=== PATIENT | female | born 1945 | race Caucasian/White ===

== ENCOUNTER 2024-11-25 08:16 | Outpatient (OUT) | payer MEDICARE, SELFPAY ==
--- NOTE | 2024-11-25 08:19 | CA_ITS ---
Patient Name: EPI MUSTAFA MR#: [id number] : 1945 Exam Date: 11/25/2024 Ordering Doctor: DR. KIMMY BUSH M.D. ECHOCARDIOGRAM REPORT PROCEDURE: CA ECHO DOPPLER COMPLETE INDICATIONS: Chest pain, YEBOAH COMPARISON: None. DESCRIPTION: COMPLETE ECHOCARDIOGRAM Real-time transthoracic echocardiography with 2D, M-mode, spectral and color flow Doppler performed. QUALITY: Technical quality was good. LEFT VENTRICLE: Normal chamber size. Mild concentric left ventricular hypertrophy. Global left ventricular systolic function is normal. LV EF: Visual estimation of left ventricular ejection fraction is 65%. DIASTOLIC: Diastolic function is indeterminate. ATRIAL SEPTUM: LEFT ATRIUM: Mild dilatation. RIGHT ATRIUM: Mild dilatation. RIGHT VENTRICLE: Normal chamber size. Normal right ventricular systolic function. TRICUSPID VALVE: Normal mobility and thickness. No stenosis with mild regurgitation. No evidence of pulmonary hypertension. RVSP 30 mmHg MITRAL VALVE: Normal mobility and thickness. No evidence of mitral valve stenosis. There is no mitral annular calcification. Mild mitral regurgitation. AORTIC VALVE: Normal trileaflet appearance. Mildly calcified aortic valve. Calcified nodule of Arantius is seen in the left coronary cusp. Normal leaflet mobility. No evidence of aortic valve stenosis. Trivial aortic regurgitation. AORTIC ROOT: Normal diameter and appearance. PULMONIC VALVE: Normal thickness and mobility. No stenosis. No regurgitation. PERICARDIUM: Trivial pericardial effusion. IVC: Collapses with inspirations. Normal size. PLEURA: CONCLUSION: 1. Mild concentric left ventricular hypertrophy with normal systolic function. LVEF is 65%. 2. Cordelia right ventricular size and systolic function. 3. Mild biatrial dilatation. 4. Mild mitral and tricuspid regurgitation. 5. Normal right sided pressures. Adult Echocardiography Procedure Report Left Ventricle LVEDD (3.7 - 5.6 cm): 4.48 cm LVESD (2.2 - 4.0 cm): 3.04 cm LVIVS thickness (0.6 - 1.2 cm): 1.09 cm LVPW thickness (0.5 - 1.0 cm): 1.08 cm e': 0.09 m/s E - e': 9.24 LVOT Max Gradient: 4.53 mm[Hg] LVOT Area (cm2): 1.06 m/s Peak Velocity (LVOT): 1.06 m/s Mean Velocity (LVOT): 0.69 m/s LVOT Diameter 1.97 cm Left Ventricular Ejection Fraction: 65 % Left Atrium LA Volume Index (2D A2C): 35.04 ml/m2 Left Atrium Systolic Dimension: 3.90 cm Mitral Valve MV E to A Ratio: 0.98 Mitral Valve A-Wave Peak Velocity: 0.88 m/s Mitral Valve E-Wave Peak Velocity: 0.86 m/s Right Ventricle RV Internal Diastolic Dimension: 3.15 cm Aorta AO Root Diam: 2.90 cm Ascending Ao Diam: 2.88 cm Aortic Valve AoV Area (Peak Harman): 1.77 cm2, 1.77 cm2 AoV Area (VTI): 1.90 cm2, 1.90 cm2 Peak Velocity(Antegrade Flow): 1.83 m/s Peak Gradient(Antegrade Flow): 13.46 mm[Hg] Mean Velocity(Antegrade Flow): 1.23 m/s Mean Gradient(Antegrade Flow): 6.92 mm[Hg] Velocity Time Integral: 48.91 cm Tricuspid Valve Peak Velocity (Regurgitant Flow): 2.26 m/s, 2.42 m/s, 2.61 m/s Pulmonic Valve Mean Gradient: 2.77 mm[Hg], 2.83 mm[Hg] Mean Velocity: 0.78 m/s, 0.79 m/s Peak Velocity: 1.14 m/s Peak Gradient: 5.02 mm[Hg], 5.31 mm[Hg] Right Atrium Right Atrium Systolic Pressure: 46.92 ml, 46.92 ml Dictated by: Pepe Chavez M.D. on 11/29/2024 at 13:47 Approved by: Pepe Chavez M.D. on 11/29/2024 at 13:57
== END 2024-11-25 08:17 | disposition home or self-care (01) ==
LOC: CARD 08:17
PROVIDERS: PCP Family Medicine; Visit Provider Internal Medicine Cardiovascular Disease
DX: R07.89 Other chest pain (principal); R06.09 Other forms of dyspnea; I08.1 Rheumatic disorders of both mitral and tricuspid valves
CPT/HCPCS: 93306; 93356

== ENCOUNTER 2024-11-25 09:04 | Outpatient (RCR) | payer MEDICARE, SELFPAY ==
[2024-11-25 14:29] LABS: Basophils Percent Auto 0.3 % (0.2-2.0); Eosinophils Absolute Auto 0.3 10^3/uL (0.0-0.7); Eosinophils Percent Auto 5.1 % (0.9-7.0); Hematocrit 36.1 % (36.0-48.0); Hemoglobin 11.3 g/dL (12.0-16.0); Immature Granulocytes Abs Auto 0.02 10^3/uL (0.00-0.03); Immature Granulocytes Pct Auto 0.3 % (0.0-0.5); Lymphocytes Absolute Auto 2.2 10^3/uL (1.2-3.8); Lymphocytes Percent Auto 36.6 % (20.5-60.0); Mean Corpuscular HGB Conc 31.3 g/dL (29.9-35.2); Mean Corpuscular Hemoglobin 31.2 pg (26.7-34.0); Mean Corpuscular Volume 99.7 fL (81.0-99.0); Mean Platelet Volume 8.8 fL (9.5-13.5); Monocytes Absolute Auto 0.5 10^3/uL (0.3-0.8); Monocytes Percent Auto 8.1 % (1.7-12.0); Neutrophils Absolute Auto 2.9 10^3/uL (1.4-6.5); Neutrophils Percent Auto 49.6 % (43.0-75.0); Platelet Count 251 10^3/uL (150-450); Red Blood Count 3.62 10^6/uL (4.20-5.40); Red Cell Distribution Width 13.1 % (11.0-15.0); White Blood Count 5.9 10^3/uL (4.0-11.0)
[2024-11-25 14:42] LABS: Alanine Aminotransferase 24 U/L (14-59); Albumin Globulin Ratio 1.1; Albumin Level 3.9 g/dL (3.4-5.0); Alkaline Phosphatase 104 U/L (46-116); Anion Gap 10.2; Aspartate Amino Transferase 16 U/L (15-37); BUN Creatinine Ratio 13.8; Bilirubin Total 0.4 mg/dL (0.2-1.0); Calcium 9.4 mg/dL (8.5-10.1); Chloride 103 mmol/L (98-107); Estimated GFR (African America 45 (>=60 mL/min/1.73m^2); Estimated GFR (Non-African Ame 37 (>=60 mL/min/1.73m^2); Globulin 3.6 g/dL; Glucose 124 mg/dL (74-106); Potassium 5.2 mmol/L (3.5-5.1); Sodium 140 mmol/L (136-145); Total Protein 7.5 g/dL (6.4-8.2)
== END 2024-11-26 08:51 | disposition home or self-care (01) ==
LOC: HEMC 09:04
PROVIDERS: PCP Family Medicine; Visit Provider Internal Medicine Hematology & Oncology
DX: R07.89 Other chest pain (principal); R06.09 Other forms of dyspnea; R91.1 Solitary pulmonary nodule; Z90.13 Acquired absence of bilateral breasts and nipples; Z85.3 Personal history of malignant neoplasm of breast; R06.02 Shortness of breath
CPT/HCPCS: 36415; 80053; 85025; 86300; 93306; 93356; G0463

== ENCOUNTER 2025-01-06 07:34 | Outpatient (RCR) | payer MEDICARE, SELFPAY ==
[2025-01-06 10:49] LABS: Basophils Percent Auto 0.4 % (0.2-2.0); Eosinophils Absolute Auto 0.2 10^3/uL (0.0-0.7); Eosinophils Percent Auto 2.4 % (0.9-7.0); Hematocrit 32.2 % (36.0-48.0); Hemoglobin 10.6 g/dL (12.0-16.0); Immature Granulocytes Abs Auto 0.04 10^3/uL (0.00-0.03); Immature Granulocytes Pct Auto 0.5 % (0.0-0.5); Lymphocytes Absolute Auto 2.5 10^3/uL (1.2-3.8); Lymphocytes Percent Auto 29.3 % (20.5-60.0); Mean Corpuscular HGB Conc 32.9 g/dL (29.9-35.2); Mean Corpuscular Hemoglobin 32.3 pg (26.7-34.0); Mean Corpuscular Volume 98.2 fL (81.0-99.0); Monocytes Absolute Auto 0.8 10^3/uL (0.3-0.8); Neutrophils Absolute Auto 4.9 10^3/uL (1.4-6.5); Neutrophils Percent Auto 58.4 % (43.0-75.0); Platelet Count 250 10^3/uL (150-450); Red Blood Count 3.28 10^6/uL (4.20-5.40); Red Cell Distribution Width 13.3 % (11.0-15.0); White Blood Count 8.4 10^3/uL (4.0-11.0)
[2025-01-06 11:12] LABS: Alanine Aminotransferase 16 U/L (14-59); Albumin Level 3.5 g/dL (3.4-5.0); Alkaline Phosphatase 91 U/L (46-116); Anion Gap 8.9; Aspartate Amino Transferase 13 U/L (15-37); BUN Creatinine Ratio 14.8; Bilirubin Total 0.4 mg/dL (0.2-1.0); Carbon Dioxide 30.9 mmol/L (21.0-32.0); Chloride 101 mmol/L (98-107); Estimated GFR (African America 41 (>=60 mL/min/1.73m^2); Estimated GFR (Non-African Ame 34 (>=60 mL/min/1.73m^2); Globulin 3.4 g/dL; Glucose 90 mg/dL (74-106); Potassium 4.8 mmol/L (3.5-5.1); Sodium 136 mmol/L (136-145); Total Protein 6.9 g/dL (6.4-8.2)
== END 2025-01-07 08:29 | disposition home or self-care (01) ==
LOC: HEMC 07:34
PROVIDERS: PCP Family Medicine; Visit Provider Internal Medicine Hematology & Oncology
DX: R91.1 Solitary pulmonary nodule (principal); Z85.3 Personal history of malignant neoplasm of breast; Z90.13 Acquired absence of bilateral breasts and nipples; R07.89 Other chest pain; Z80.0 Family history of malignant neoplasm of digestive organs; Z80.8 Family history of malignant neoplasm of other organs or systems; R06.02 Shortness of breath
CPT/HCPCS: 36415; 80053; 85025; 86300; 99211; G0463

== ENCOUNTER 2025-02-03 07:39 | Outpatient (RCR) | payer MEDICARE, SELFPAY ==
[2025-02-03 10:42] LABS: Erythrocyte Sedimentation Rate 7 mm/hr (<=30)
[2025-02-03 11:36] LABS: Percent Iron Saturation 34.6 %
[2025-02-03 11:42] LABS: C Reactive Protein <0.50 mg/dL (<=0.50)
[2025-02-03 15:07] LABS: Hematocrit 30.6 % (36.0-48.0); Hemoglobin 9.9 g/dL (12.0-16.0); Mean Corpuscular HGB Conc 32.4 g/dL (29.9-35.2); Mean Corpuscular Hemoglobin 32.5 pg (26.7-34.0); Mean Corpuscular Volume 100.3 fL (81.0-99.0); Mean Platelet Volume 9.4 fL (9.5-13.5); Platelet Count 198 10^3/uL (150-450); Red Blood Count 3.05 10^6/uL (4.20-5.40); Red Cell Distribution Width 15.1 % (11.0-15.0); White Blood Count 2.3 10^3/uL (4.0-11.0)
[2025-02-03 15:42] LABS: Eosinophils Absolute Manual 0.06 10^3/uL (0.00-0.70); Lymphocytes Absolute Manual 1.33 10^3/uL (1.20-3.80); Monocytes Absolute Manual 0.29 10^3/uL (0.30-0.80); Segmented Neut Absolute Manual 0.57 10^3/uL (1.4-6.5)
[2025-02-04 04:07] LABS: Vitamin B12 334 pg/mL (232-1245)
== END 2025-02-04 07:57 | disposition home or self-care (01) ==
LOC: HEMC 07:39
PROVIDERS: PCP Family Medicine; Visit Provider Internal Medicine Hematology & Oncology
DX: R91.1 Solitary pulmonary nodule (principal); I10 Essential (primary) hypertension; Z85.3 Personal history of malignant neoplasm of breast; C50.912 Malignant neoplasm of unspecified site of left female breast; C50.911 Malignant neoplasm of unspecified site of right female breast; C78.01 Secondary malignant neoplasm of right lung
CPT/HCPCS: 36415; 80048; 82607; 82728; 82746; 83540; 83550; 85007; 85027; 85652; 86140; G0463

== ENCOUNTER 2025-02-03 11:33 | Outpatient (RCR) | payer MEDICARE, SELFPAY ==
[2025-02-03 14:21] LABS: Anion Gap 13.5; BUN Creatinine Ratio 12.3; Calcium 8.9 mg/dL (8.5-10.1); Carbon Dioxide 28.1 mmol/L (21.0-32.0); Chloride 105 mmol/L (98-107); Estimated GFR (African America 37 (>=60 mL/min/1.73m^2); Estimated GFR (Non-African Ame 30 (>=60 mL/min/1.73m^2); Glucose 113 mg/dL (74-106); Potassium 4.6 mmol/L (3.5-5.1); Sodium 142 mmol/L (136-145)
== END 2025-02-04 07:57 | disposition home or self-care (01) ==
LOC: INF 11:33
PROVIDERS: PCP Family Medicine; Visit Provider Internal Medicine Cardiovascular Disease
DX: I10 Essential (primary) hypertension (principal)
CPT/HCPCS: 36415; 80048

== ENCOUNTER 2025-02-18 08:45 | Outpatient (OUT) | payer MEDICARE, SELFPAY ==
[2025-02-18 08:58] LABS: Hemoglobin 9.7 g/dL (12.0-16.0)
--- NOTE | 2025-02-18 09:39 | RT_ITS ---
The 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 Findings were considered accurate and reproducible, with exception of DLCO which did not meet ATS standards. Both pre- and post-bronchodilator values utilized for spirometry. Spirometry (based on pre-bronchodilator values): -FEV1/FVC: Normal @ 83% -FEV1: Normal @ 93% -FVC: Normal @ 82% -There is no significant bronchodilator response. Lung volumes by plethysmography (based on pre-bronchodilator values): -RV: Increased @ 127% -TLC: Normal @ 117% Diffusion capacity: -DLCO: Normal @ 82% when corrected for Hb 9.7g/dL Impressions: -Essentially normal PFT. Mild anemia is present based on Hb 9.7g/dL. Clinical correlation required. Electronically Signed On 02-18-2025 14:03:14 EDT by Tony Roman
[2025-02-18] MEDS: ALBUTEROL SULFATE 2.5 MG/3 ML VIAL NEB IH (09:51)
== END 2025-02-18 08:46 | disposition home or self-care (01) ==
LOC: CARD 08:46
PROVIDERS: PCP Family Medicine; Visit Provider Internal Medicine Hematology & Oncology
DX: R91.1 Solitary pulmonary nodule (principal); Z85.3 Personal history of malignant neoplasm of breast; C50.912 Malignant neoplasm of unspecified site of left female breast; C50.911 Malignant neoplasm of unspecified site of right female breast; C78.01 Secondary malignant neoplasm of right lung
CPT/HCPCS: 36415; 85018; 94060; 94726; 94729

== ENCOUNTER 2025-03-03 10:36 | Outpatient (RCR) | payer MEDICARE, SELFPAY ==
[2025-03-07 00:07] LABS: D001-IgE D pteronyssinus <0.10 kU/L (Class 0); D002-IgE D farinae <0.10 kU/L (Class 0); E001-IgE Cat Dander <0.10 kU/L (Class 0); E005-IgE Dog Dander <0.10 kU/L (Class 0); E072-IgE Mouse Urine <0.10 kU/L (Class 0); G002-IgE Bermuda Grass <0.10 kU/L (Class 0); G006-IgE Timothy Grass <0.10 kU/L (Class 0); I006-IgE Cockroach, German <0.10 kU/L (Class 0); Immunoglobulin E, Total 26 IU/mL (6-495); M001-IgE Penicillium chrysogen <0.10 kU/L (Class 0); M002-IgE Cladosporium herbarum <0.10 kU/L (Class 0); M003-IgE Aspergillus fumigatus <0.10 kU/L (Class 0); M006-IgE Alternaria alternata <0.10 kU/L (Class 0); T001-IgE Maple/Box Elder <0.10 kU/L (Class 0); T003-IgE Common Silver Birch <0.10 kU/L (Class 0); T006-IgE Cedar, Mountain <0.10 kU/L (Class 0); T007-IgE Oak, White <0.10 kU/L (Class 0); T008-IgE Elm, American <0.10 kU/L (Class 0); T010-IgE Walnut <0.10 kU/L (Class 0); T011-IgE Maple Leaf Sycamore <0.10 kU/L (Class 0); T014-IgE Cottonwood <0.10 kU/L (Class 0); T015-IgE Ash, White <0.10 kU/L (Class 0); T022-IgE Pecan, Hickory <0.10 kU/L (Class 0); T070-IgE White Mulberry <0.10 kU/L (Class 0); W001-IgE Ragweed, Short <0.10 kU/L (Class 0); W011-IgE Thistle, Russian <0.10 kU/L (Class 0); W014-IgE Pigweed, Common <0.10 kU/L (Class 0); W018-IgE Sheep Sorrel <0.10 kU/L (Class 0)
== END 2025-03-11 23:59 | disposition home or self-care (01) ==
LOC: INF 10:36
PROVIDERS: PCP Family Medicine; Visit Provider Internal Medicine
DX: J45.40 Moderate persistent asthma, uncomplicated (principal)
CPT/HCPCS: 36415; 82785; 86003

== ENCOUNTER 2025-03-10 07:33 | Outpatient (RCR) | payer MEDICARE, SELFPAY ==
[2025-03-03 11:29] LABS: Hematocrit 26.3 % (36.0-48.0); Hemoglobin 8.5 g/dL (12.0-16.0); Mean Corpuscular HGB Conc 32.3 g/dL (29.9-35.2); Mean Corpuscular Hemoglobin 33.6 pg (26.7-34.0); Platelet Count 169 10^3/uL (150-450); Red Blood Count 2.53 10^6/uL (4.20-5.40); Red Cell Distribution Width 18.4 % (11.0-15.0); White Blood Count 2.4 10^3/uL (4.0-11.0)
[2025-03-03 11:43] LABS: Alanine Aminotransferase 18 U/L (14-59); Albumin Globulin Ratio 1.2; Albumin Level 3.7 g/dL (3.4-5.0); Alkaline Phosphatase 85 U/L (46-116); Anion Gap 13.4; Aspartate Amino Transferase 17 U/L (15-37); BUN Creatinine Ratio 12.3; Bilirubin Total 0.4 mg/dL (0.2-1.0); Calcium 9.1 mg/dL (8.5-10.1); Carbon Dioxide 28.2 mmol/L (21.0-32.0); Chloride 104 mmol/L (98-107); Estimated GFR (African America 39 (>=60 mL/min/1.73m^2); Estimated GFR (Non-African Ame 32 (>=60 mL/min/1.73m^2); Globulin 3.1 g/dL; Glucose 94 mg/dL (74-106); Potassium 4.6 mmol/L (3.5-5.1); Sodium 141 mmol/L (136-145); Total Protein 6.8 g/dL (6.4-8.2)
[2025-03-03 11:58] LABS: Basophils Abs Manual 0.07 10^3/uL (0.00-0.10); Eosinophils Absolute Manual 0.12 10^3/uL (0.00-0.70); Lymphocytes Absolute Manual 0.88 10^3/uL (1.20-3.80); Metamyelocytes Absolute Manual 0.04; Monocytes Absolute Manual 0.33 10^3/uL (0.30-0.80); Segmented Neut Absolute Manual 0.93 10^3/uL (1.4-6.5)
[2025-03-03 12:00] LABS: Anisocytosis 2+; Macrocytosis 2+
[2025-03-04 04:07] LABS: CA 15-3 54.8 U/mL (0.0-25.0)
[2025-03-04 07:07] LABS: CA 27.29 59.8 U/mL (0.0-38.6)
[2025-03-10 10:30] VITALS: PULSE 62; TEMP 36.6; O2SAT 95
[2025-03-10] MEDS: EPOETIN ALFA 20,000 UNIT/2 ML VIAL 40000 UNIT SUBQ (10:51)
[2025-03-10 10:55] LABS: Hematocrit 26.2 % (36.0-48.0); Hemoglobin 8.8 g/dL (12.0-16.0); Mean Corpuscular HGB Conc 33.6 g/dL (29.9-35.2); Mean Corpuscular Hemoglobin 35.2 pg (26.7-34.0); Mean Corpuscular Volume 104.8 fL (81.0-99.0); Mean Platelet Volume 8.7 fL (9.5-13.5); Platelet Count 206 10^3/uL (150-450); Red Cell Distribution Width 19.5 % (11.0-15.0); White Blood Count 2.3 10^3/uL (4.0-11.0)
[2025-03-10 11:15] LABS: Percent Iron Saturation 30.4 %
[2025-03-10 11:18] LABS: Alanine Aminotransferase 27 U/L (14-59); Albumin Globulin Ratio 1.1; Albumin Level 3.6 g/dL (3.4-5.0); Alkaline Phosphatase 87 U/L (46-116); Anion Gap 12.2; Aspartate Amino Transferase 16 U/L (15-37); BUN Creatinine Ratio 10.9; Bilirubin Total 0.4 mg/dL (0.2-1.0); Carbon Dioxide 28.5 mmol/L (21.0-32.0); Chloride 101 mmol/L (98-107); Estimated GFR (African America 30 (>=60 mL/min/1.73m^2); Estimated GFR (Non-African Ame 25 (>=60 mL/min/1.73m^2); Globulin 3.2 g/dL; Glucose 102 mg/dL (74-106); Potassium 4.7 mmol/L (3.5-5.1); Sodium 137 mmol/L (136-145); Total Protein 6.8 g/dL (6.4-8.2)
[2025-03-10 11:24] LABS: Lymphocytes Absolute Manual 0.82 10^3/uL (1.20-3.80); Segmented Neut Absolute Manual 1.19 10^3/uL (1.4-6.5)
[2025-03-10 11:25] LABS: Anisocytosis 2+; Basophils Abs Manual 0.06 10^3/uL (0.00-0.10); Eosinophils Absolute Manual 0.06 10^3/uL (0.00-0.70); Macrocytosis 3+; Monocytes Absolute Manual 0.11 10^3/uL (0.30-0.80)
== END 2025-03-11 23:59 | disposition home or self-care (01) ==
LOC: HEMC 07:33
PROVIDERS: PCP Family Medicine; Visit Provider Internal Medicine Hematology & Oncology
DX: R91.1 Solitary pulmonary nodule (principal); C78.01 Secondary malignant neoplasm of right lung; Z85.3 Personal history of malignant neoplasm of breast; D64.81 Anemia due to antineoplastic chemotherapy; Z90.13 Acquired absence of bilateral breasts and nipples; Z80.3 Family history of malignant neoplasm of breast; Z80.8 Family history of malignant neoplasm of other organs or systems; R07.89 Other chest pain; I25.10 Atherosclerotic heart disease of native coronary artery without angina pectoris; E78.5 Hyperlipidemia, unspecified; D63.1 Anemia in chronic kidney disease; N18.9 Chronic kidney disease, unspecified; I12.9 Hypertensive chronic kidney disease with stage 1 through stage 4 chronic kidney disease, or unspecified chronic kidney disease
CPT/HCPCS: 36415; 80053; 82728; 82785; 83540; 83550; 85007; 85027; 86003; 86300; 96372; G0463; J0885

== ENCOUNTER 2025-03-19 09:18 | Outpatient (OUT) | payer MEDICARE, SELFPAY ==
--- NOTE | 2025-03-19 09:21 | MR_ITS ---
The [address] [address] Patient Name: EPI MUSTAFA MRN: [id number] date: 1945 Sex: F Assigned Patient Location: MRI Current Patient Location: MRI Accession/Order Number: [id number] Exam Date: 03/19/2025 14:27 Report Date: 03/19/2025 14:31 At the request of: PEYTON MCMILLAN MD Procedure: MR head/brain wo/w con MRI of the brain with and without IV contrast. Reason for exam: Lung cancer. Evaluation for metastases. COMPARISON: None. TECHNIQUE: Multisequence, multiplanar imaging of the brain was performed before and after the use of IV contrast. FINDINGS: No evidence of restricted diffusion is an diffusion-weighted imaging. No evidence of blood products are seen on T2 Star imaging. Cortical atrophy with moderate chronic microvascular ischemic changes are noted. Posterior fossa appears unremarkable. Intraorbital contents appear grossly unremarkable. No significant paranasal sinus disease. An enhancing extra-axial lesion is seen along the falx in the region of the frontal lobes with what appears to be a dural tail noted measuring approximately 3.0 x 2.1 x 1.5 cm. No significant surrounding edema is noted. No additional abnormal enhancement is seen. MR/MR head/brain wo/w con IMPRESSION: Enhancing extra-axial mass is noted along the anterior falx measuring 3.0 x 2.1 x 1.5 cm with what appears to be a dural tail suspicious for a meningioma. No abnormal enhancement is seen within the brain parenchyma to suggest metastatic disease. Cortical atrophy with moderate chronic microvascular ischemic changes. Impression dictated by: Óscar May Jr., D.O. 03/19/2025 2:31 PM Dictation Location: [place] [address] Electronically authenticated by: [id number] Y Date: 03/19/2025 14:31
== END 2025-03-19 09:19 | disposition home or self-care (01) ==
LOC: MRI 09:18
PROVIDERS: PCP Family Medicine; Visit Provider Internal Medicine Hematology & Oncology
DX: R91.1 Solitary pulmonary nodule (principal); Z85.3 Personal history of malignant neoplasm of breast; C50.912 Malignant neoplasm of unspecified site of left female breast; C50.911 Malignant neoplasm of unspecified site of right female breast; C78.01 Secondary malignant neoplasm of right lung; D63.1 Anemia in chronic kidney disease; D64.81 Anemia due to antineoplastic chemotherapy
CPT/HCPCS: 70553; A9575

== ENCOUNTER 2025-03-28 15:50 | Observation (INO) | payer MEDICARE, SELFPAY ==
[2025-03-28] VITALS (14 sets, daily range): BP systolic 137–177; BP diastolic 67–76; PULSE 56–76; TEMP 36.4–36.6; O2SAT 90–96; BMI 32.7; BMI 32.6
--- OUTSIDE RECORDS SUMMARY | 2025-03-28 15:57 | XMS_ITS | CCD ---
Author Organization [facility] Care Team Providers Care Customer Support Professional Name Role Phone UNKNOWN, PROVIDER Admitting Unavailable UNKNOWN, PROVIDER Attending Unavailable LUCIA ESTEBAN Referring Unavailable LUCIA ESTEBAN Primary Care Unavailable Shea Reyes Primary Care Provider CJ FOX Attending Unavailable CJ FOX Admitting Unavailable MONCHO, DR NORBERTO Trammell Consulting Unavailable LORI, DR LUCIA Mckeon Primary Care Unavailable ROSANNA, CJ Consulting Unavailable LORI, DR LUCIA Mckeon Primary Care Unavailable CJ FOX Admitting Unavailable CJ FOX Attending Unavailable Kevyn, DR Jorgensen Consulting Unavailable CJ FOX Consulting Unavailable LORI, DR LUCIA Mckeon Primary Care Unavailable CRESCENCIO, DR BERNABE Mejia Attending Unavailable CRESCENCIO, DR BERNABE Mejia Admitting Unavailable CRESCENCIO, DR BERNABE Mejia Consulting Unavailable LORI, DR LUCIA Mckeon Primary Care Unavailable CRESCENCIO, DR BERNABE Mejia Attending Unavailable CRESCENCIO, DR BERNABE Mejia Admitting Unavailable CRESCENCIO, DR BERNABE Mejia Attending Unavailable CRESCENCIO, DR BERNABE Mejia Admitting Unavailable CRESCENCIO, DR BERNABE Mejia Consulting Unavailable LORI, DR LUCIA Mckeon Primary Care Unavailable CRESCENCIO, DR BERNABE Mejia Attending Unavailable CRESCENCIO, DR BERNABE Mejia Admitting Unavailable PRATHER, DR BERNABE Mejia Consulting Unavailable LORI, DR LUCIA Mckeon Primary Care Unavailable CRESCENCIO, DR BERNABE Mejia Admitting Unavailable CRESCENCIO, DR BERNABE Mejia Consulting Unavailable CRESCENCIO, DR BERNABE Mejia Attending Unavailable LORI, DR LUCIA Mckeon Primary Care Unavailable CRESCENCIO, DR BERNABE Mejia Admitting Unavailable CRESCENCIO, DR BERNABE Mejia Consulting Unavailable CRESCENCIO, DR BERNABE Mejia Attending Unavailable LORI, DR LUCIA Mckeon Primary Care Unavailable CRESCENCIO, DR BERNABE Mejia Admitting Unavailable LORI, DR LUCIA Mckeon Primary Care Unavailable CRESCENCIO, DR BERNABE Mejia Attending Unavailable LORI, DR LUCIA Mckeon Primary Care Unavailable CLOUGHERTY, GAUTHIER O Admitting Unavailabl DISHA Crawley Attending Unavailabl e MONCHO, DR NORBERTO Trammell Consulting Unavailable DISHA HARRIS Consulting Unavailabl katelynn ESTEBAN, DR LUCIA Mckeon Primary Care Unavailable CJ FOX Admitting Unavailable ROSANNA, CJ Attending Unavailable MONCHO, DR NORBERTO Trammell Consulting Unavailable CJ FOX Consulting Unavailable LORI, DR LUCIA Mckeon Primary Care Unavailable FIDE CHUA Attending Unavailable FIDE CHUA Admitting Unavailable MONCHO, DR NORBERTO Trammell Consulting Unavailable FIDE CHUA Consulting Unavailable Lucia Esteban MD Unavailable [phone] Lucia Esteban MD Primary Care Provider [phone] LORI, LUCIA A Referring Unavailable ESTEBAN, LUCIA A Primary Care Unavailable VICENTA FERNANDES Referring Unavailable ESTEBAN, LUCIA A Primary Care Unavailable ESTEBAN, LUCIA A Referring Unavailable ESTEBAN, LUCIA A Primary Care Unavailable ESTEBAN, LUCIA A Referring Unavailable ESTEBAN, LUCIA A Primary Care Unavailable ESTEBAN, LUCIA A Primary Care Unavailable MYERSDOMINIQUE Attending Unavailable MYERS, DOMINIQUE Maloney Attending Unavailable MYERSDOMINIQUE Referring Unavailable ESTEBAN, LUCIA A Primary Care Unavailable MYERS, DOMINIQUE Maloney Attending Unavailable MYERS, DOMINIQUE Maloney Referring Unavailable ESTEBAN, LUCIA A Primary Care Unavailable MYERS, DOMINIQUE Maloney Attending Unavailable MYERS, DOMINIQUE W Referring Unavailable ESTEBAN, LUCIA A Primary Care Unavailable ESTEBAN, LUCIA A Referring Unavailable ESTEBAN, LUCIA A Primary Care Unavailable KIMMY ROSADO Referring Unavailable ESTEBAN, LUCIA A. Primary Care Unavailable Lucia Esteban MD Primary Care Provider [phone] MARÍA THAPA Attending Unavailable MARÍA THAPA Referring Unavailable ESTEBAN, LUCIA A Primary Care Unavailable MARÍA THAPA Referring Unavailable ESTEBAN, LUCIA A Primary Care Unavailable Lucia Esteban MD Primary Care Provider BRANNON CARRANZA Attending Unavailable LAVINIA HERRING Attending Unavailable LAVINIA HERRING Attending Unavailable LAVINIA HERRING Referring Unavailable ESTEBAN, LUCIA A Referring Unavailable ESTEBAN, LUCIA A Primary Care Unavailable ESTEBAN, LUCIA A Referring Unavailable ESTEBAN, LUCIA A Primary Care Unavailable MARÍA THAPA Attending Unavailable ESTEBAN, LUCIA A Referring Unavailable ESTEBAN, LUCIA A Primary Care Unavailable MARÍA THAPA Attending Unavailable NATASHA VAZQUEZ Referring Unavailable ESTEBAN, LUCIA A Primary Care Unavailable SAID ISIDRA SIMMONS Admitting Unavailable SAID ISIDRA SIMMONS Attending Unavailable ESTEBAN, LUCIA A Primary Care Unavailable ESTEBAN, LUCIA A Referring Unavailable ESTEBAN, LUCIA A Primary Care Unavailable KIMMY ROSADO Attending Unavailable KIMMY ROSADO Attending Unavailable KIMMY ROSADO Attending Unavailable KIMMY ROSADO Admitting Unavailable Allergies Allergy Classification Reported Allergen(s) Allergy Type Date of Onset Reaction(s) Facility (3 sources) Levamisole Drug Allergy 9 [facility] Repository (1 source) Penicillin Drug Allergy 9 [facility] Repository (2 sources) pregabalin Drug Allergy 9 [facility] Repository (7 sources) Penicillins; Translations: [PENICILLINS] Drug allergy (disorder) 3 [facility] Repository (6 sources) Penicillins Drug Intolerance 8 Headache [facility] Work Phone: (11 sources) Pregabalin; Translations: [PREGABALIN] Allergy to substance 8 Dizziness, Headache, Other, Shortness of breath [facility] (20 sources) Promethazine; Translations: [PROMETHAZINE] Drug Allergy 8 Anxiety, Dizziness, Hallucinations, Itching, Other, Palpitations, Other (See Comments) [facility] (7 sources) Penicillins Propensity to adverse reactions to drug 8 Other (See Comments) [facility] (11 sources) pregabalin Drug Allergy 8 Other (See Comments) [facility] (4 sources) Penicillins Propensity to adverse reactions to drug 8 Other (See Comments) [facility] Medications Current Medications Medication Drug Class(es) Dates Sig (Normalized) Sig (Original) acetaminophen 325 mg oral tablet (17 sources) take 2 tablets by mouth every six hours as needed for pain acetaminophen (TYLENOL) 325 mg tablet Indications: pain Take 2 tablets (650 mg total) by mouth every 6 (six) hours as needed for pain Indications: pain. Active acetaminophen (T ylenol Extra Strength) 500 MG tablet every 6 (six) hours Active acetaminophen 500 mg / diphenhydrAMINE hydrochloride 25 mg oral tablet (17 sources) Histamine-1 Receptor Antagonist take 0.5 tablet by mouth once daily as needed for sleep diphenhydrAMINE-acetaminophen (TYLENOL PM) 25-500 mg tablet Take 0.5 tablets by mouth nightly as needed for sleep. Active albuterol 0.83 mg/ml inhalation solution (6 sources) beta2-Adrenergi c Agonist Star t: 04 0-20 25 take 3 mL by inhalation four times daily as needed for wheezing albuterol (PROVENTIL,VENTOLIN) 2.5 mg /3 mL (0.083 %) nebulizer solution Indications: Moderate persistent asthma without complication Inhale 3 mL (2.5 mg total) by nebulization 4 (four) times a day as needed for wheezing. 75 mL 12 02/19/2025 Active Start: 02-19-2025 take 2 puff(s) by in halation every six hours as needed for wheezing albuterol (PROVENTIL HFA;VENTOLIN HFA) 90 mcg/actuation inhaler Indications: Moderate persistent asthma without complication Inhale 2 puffs every 6 (six) hours as needed for wheezing. 18 g 11 02/19/2025 Active amitriptyline hydrochloride 10 mg oral tablet (15 sources) Tricyclic Antidepressant take 2 tablets by mouth once daily amitriptyline (ELAVIL) 10 mg tablet Indications: anxiety , insomnia Take 2 tablets (20 mg total) by mouth nightly Indications: anxious, difficulty sleeping. Active amitriptyline (E lavil) 10 MG tablet Active apple cider vinegar 500 mg oral tablet (3 sources) End: 12-11-2024 apple cider vinegar 500 mg tablet Take 450 mg by mouth daily. 12/11/2024 Discontinued (Therapy completed) ascorbic acid 60 mg / beta carotene 5000 unt / copper sulfate 40 mg / dl-alpha tocopheryl acetate 30 unt / sodium selenite 0.04 mg / zinc oxide 40 mg oral tablet (6 sources) Vitamin C Multiple Vitamin (Multivitamin Adult) tablet as directed Orally Active aspirin 81 mg chewable tablet (9 sources) Platelet Aggregation Inhibitor, Nonsteroidal Anti-inflammatory Drug aspirin 81 mg chewable tablet Chew 1 tablet (81 mg total) and swallow in the morning. prevention. Active atorvastatin 20 mg oral tablet (11 sources) HMG-CoA Reductase Inhibitor take 1 tablet by mouth once daily atorvastatin (LIPITOR) 20 mg tablet Indications: hyperlipidemia Take 1 tablet (20 mg total) by mouth nightly Indications: excessive fat in the blood. Active cholecalciferol 0.05 mg oral capsule (11 sources) Vitamin D take 1 capsule by mouth once daily in the morning cholecalciferol, vitamin D3, 2,000 units capsule Indications: vitamin D deficiency Take 1 capsule (2,000 Units total) by mouth in the morning. Indications: low vitamin D levels. Active take 1 capsule by mo uth in the morning cholecalciferol, vitamin D3, 2,000 units capsule Take 1 capsule (2,000 Units total) by mouth in the morning. Active DULoxetine 60 mg delayed release oral capsule (17 sources) Serotonin and Norepinephrine Reuptake Inhibitor take 1 capsule by mouth once daily DULoxetine (CYMBALTA) 60 mg capsule Indications: fibromyalgia Take 1 capsule (60 mg total) by mouth nightly Indications: disorder characterized by stiff, tender & painful muscles. Active erythromycin 0.005 mg/mg ophthalmic ointment (11 sources) Macrolide, Macrolide Antimicrobial Start: 020 erythromycin (ILOTYCIN) ophthalmic ointment 06/24/2020 Active fluticasone / salmeterol (2 sources) Corticosteroid, beta2-Adrenergic Agonist Start: 025 End: take 1 puff(s) by inhalation in the morning fluticasone propion-salmeteroL (ADVAIR DISKUS) 250-50 mcg/dose DISKUS Indications: Moderate persistent asthma without complication Inhale 1 puff in the morning and 1 puff before bedtime. 60 each 02/19/2025 02/20/2025 Discontinued 30 actuat fluticasone furoate 0.2 mg/actuat / vilanterol 0.025 mg/actuat dry powder inhaler (2 sources) Corticosteroid, beta2-Adrenergic Agonist Start: 025 take 1 puff(s) by inhalation in the morning fluticasone furoate-vilanteroL (BREO ELLIPTA) 200-25 mcg/dose blister with device Indications: Moderate persistent asthma without complication Inhale 1 puff in the morning. 60 each 02/20/2025 Active Start: 02-20-2025 take 1 puff(s) by in halation in the morning fluticasone furoate-vilanteroL (BREO ELLIPTA) 200-25 mcg/dose blister with device Indications: Moderate persistent asthma without complication Inhale 1 puff in the morning. 60 each 02/20/2025 Active gabapentin 300 mg oral capsule (20 sources) Anti-epileptic Agent Start: 08-23-2022 End: 12-11-2024 take 1 capsule by mouth three times daily gabapentin (NEURONTIN) 300 mg capsule Indications: Meningioma (CMS-HCC) Take 1 capsule (300 mg total) by mouth 3 (three) times a day. 90 capsule 3 08/23/2022 Active take 1 capsule by mo uth every twelve hours gabapentin (Neurontin) 300 MG capsule 1 capsule every 12 (twelve) hours Active hydroCHLOROthiazide 12.5 mg oral capsule (3 sources) Thiazide Diuretic Start: 01-29-2025 End: 01-29-2026 take 1 capsule by mouth in the morning hydroCHLOROthiazide (MICROZIDE) 12.5 mg capsule Take 1 capsule (12.5 mg) by mouth in the morning. 01/29/2025 01/29/2026 Active 24 hr isosorbide mononitrate 30 mg extended release oral tablet (9 sources) Nitrate Vasodilator End: 12-11-2024 isosorbide mononitrate ER (Imdur) 30 MG 24 hr tablet 1 (one) time each day at the same time Active letrozole 2.5 mg oral tablet (5 sources) Aromatase Inhibitor take 1 tablet by mouth once daily letrozole (FEMARA) 2.5 mg chemo tablet Take 1 tablet by mouth daily Possible early breast cancer Active lisinopril 10 mg oral tablet (17 sources) Angiotensin Converting Enzyme Inhibitor take 1 tablet by mouth in the morning lisinopril (PRINIVIL,ZESTRIL) 10 mg tablet Indications: hypertension Take 1 tablet (10 mg total) by mouth in the morning. Indications: high blood pressure. Active meclizine hydrochloride 25 mg oral tablet (11 sources) Antiemetic take 1 tablet by mouth three times daily as needed meclizine (ANTIVERT) 25 mg tablet Indications: motion sickness Take 1 tablet (25 mg total) by mouth 3 (three) times a day as needed Indications: motion sickness. Active meloxicam 15 mg oral tablet (3 sources) Nonsteroidal Anti-inflammator y Drug End: 12-11-2024 take 1 tablet by mouth in the morning meloxicam (MOBIC) 15 mg tablet Take 1 tablet (15 mg total) by mouth in the morning. 12/11/2024 Discontinued (Therapy completed) 24 hr metoprolol succinate 25 mg extended release oral tablet (17 sources) beta-Adrenergic Magdalena take 1 tablet by mouth every twenty-fou r hours in the morning metoprolol succinate XL (TOPROL-XL) 25 mg 24 hr tablet Indications: hypertension Take 1 tablet (25 mg total) by mouth in the morning. Indications: high blood pressure. Active montelukast 10 mg oral tablet (3 sources) Leukotriene Receptor Antagonist Start: 02-06-2025 take 1 tablet by mouth once daily montelukast (SINGULAIR) 10 mg tablet Take 1 tablet (10 mg total) by mouth nightly. 02/06/2025 Active multivit-minerals/[place] us fum (MULTI VITAMIN ORAL) (11 sources) multivit-mineral s/ferr ous fum (MULTI VITAMIN ORAL) Take by mouth. Active multivit-mineral s/ferrous fum (MULTI VITAMIN ORAL) Take by mouth. 0 Active omeprazole 20 mg delayed release oral capsule (18 sources) Proton Pump Inhibitor Start: 12-11-2024 End: 12-11-2024 take 1 capsule by mouth at bedtime omeprazole (PriLOSEC) 20 mg capsule TAKE 1 CAPSULE(20 MG) BY MOUTH IN THE MORNING AND AT BEDTIME 180 capsule 3 12/11/2024 Active palbociclib 125 mg oral capsule (2 sources) Kinase Inhibitor take 1 capsule by mouth once daily at mealtime palbociclib (Ibrance) 125 MG chemo capsule Take 125 mg by mouth Daily with meals. Swallow whole. Active Completed/Discontinued Medications Medication Drug Class(es) Dates Sig (Normalized) Sig (Original) 1 ml methylPREDNISolone acetate 40 mg/ml injection (8 sources) Corticosteroid Start: End: methylPREDNISolone acetate (DEPO-Medrol) injection 40 mg Start: 02-06-2025 End: 02-06-2025 40 mg, Intra-articular, Once PRN Procedure, Starting on Sun02/06/25 at 1320, For 1 dose Start: 08-27-2024 End: 08-27-2024 methylPREDNISolone acetate ( DEPO-Medrol) injection 40 mg Start: 08-27-2024 End: 08-27-2024 40 mg, Intra-articular, Once PRN Procedure, Starting on Sun08/27/24 at 1221, For 1 dose predniSONE 5 mg oral tablet (3 sources) End: 02-19-2025 take 1 tablet by mouth in the morning predniSONE (DELTASONE) 5 mg tablet Take 1 tablet (5 mg total) by mouth in the morning. 02/19/2025 Discontinued UNABLE TO FIND (7 sources) End: 12-22-2024 take 1000 mg by mouth in the morning UNABLE TO FIND Take 1,000 mg by mouth in the morning. Med Name: CBD oil . 12/22/2024 Discontinued (Therapy completed) take 1000 mg by mouth in the mor earnestine UNABLE TO FIND Take 1,000 mg by mouth in the morning. Med Name: CBD oil . Active take 1000 mg by mouth in the mor earnestine UNABLE TO FIND Take 1,000 mg by mouth in the morning. Med Name: CBD oil . 0 Active Problems Active Problems Problem Classification Problem Date Documented Date Episodic/Chronic Asthma (5 sources) Uncomplicated moderate persistent asthma; Translations: [Moderate persistent asthma, uncomplicated] Onset: 02-19-2025 02-20-2025 Chronic Cancer of breast (9 sources) History of malignant neoplasm of breast; Translations: [Personal history of malignant neoplasm of breast] Onset: 12-11-2024 12-11-2024 Episodic Chronic kidney disease (2 sources) Chronic kidney disease; Translations: [Chronic kidney disease, stage 3a] Onset: 03-03-2024 Coronary atherosclerosis and other heart disease (5 sources) 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; Translations: [Unstable angina] Onset: 11-13-2024 Chronic Disorders of lipid metabolism (3 sources) Mixed hyperlipidemia; Translations: [Mixed hyperlipidemia] Onset: 05-19-2024 Chronic Diverticulosis and diverticulitis (11 sources) Diverticulosis of large intestine; Translations: [Diverticulosis of large intestine without perforation or abscess without bleeding] Onset: 08-02-2020 08-02-2020 Chronic E Codes: Fall (1 source) Fall Onset: 07-19-2024 Esophageal disorders (9 sources) Gastroesophageal reflux disease without esophagitis; Translations: [Gastro-esophageal reflux disease without esophagitis] Onset: 12-11-2024 12-11-2024 Chronic Essential hypertension (3 sources) Essential (primary) hypertension; Translations: [Essential (primary) hypertension] Onset: 03-03-2024 Chronic Osteoarthritis (20 sources) Primary osteoarthritis, right ankle and foot; Translations: [Osteoarthritis of right knee joint] Onset: 01-14-2018 Chronic Other and unspecified benign neoplasm (11 sources) Neoplasm of meninges; 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, unspecified] Onset: 01-31-2019 01-31-2019 Chronic Other connective tissue disease (5 sources) Pain in right foot; Translations: [PAIN IN RIGHT FOOT] Onset: 04-06-2022 Episodic Other connective tissue disease (5 sources) Other muscle spasm; Translations: [OTHER MUSCLE SPASM] Onset: 03-31-2022 Episodic Other connective tissue disease (1 source) Pain in right leg; Translations: [PAIN IN RIGHT LEG] Onset: 03-31-2022 Episodic Other connective tissue disease (5 sources) Pain in left leg; Translations: [PAIN IN LEFT LEG] Onset: 02-16-2022 Episodic Other lower respiratory disease (2 sources) Shortness of breath; Translations: [Shortness of breath] Onset: 10-24-2024 Episodic Other lower respiratory disease (1 source) Wheezing; Translations: [Wheezing] Onset: 10-24-2024 Episodic Other lower respiratory disease (12 sources) Multiple nodules of lung; Translations: [Other nonspecific abnormal finding of lung field] Onset: 12-11-2024 12-11-2024 Episodic Other lower respiratory disease (2 sources) Nodule of lung; Translations: [Solitary pulmonary nodule] 12-11-2024 Episodic Other lower respiratory disease (2 sources) Solitary pulmonary nodule; Translations: [Solitary pulmonary nodule] Onset: 12-11-2024 Episodic Other lower respiratory disease (2 sources) Other nonspecific abnormal finding of lung field; Translations: [Other nonspecific abnormal finding of lung field] Onset: 12-11-2024 Episodic Other lower respiratory disease (1 source) Dyspnea; Translations: [Shortness of breath] 12-11-2024 Episodic Other lower respiratory disease (4 sources) Dyspnea on exertion; Translations: [Other forms of dyspnea] Onset: 02-19-2025 02-19-2025 Episodic Other lower respiratory disease (3 sources) Other forms of dyspnea; Translations: [Other forms of dyspnea] Onset: 11-13-2024 Episodic Other nervous system disorders (1 source) Other specified mononeuropathies; Translations: [OTHER SPECIFIED MONONEUROPATHIES] Onset: 04-21-2022 Chronic Other nervous system disorders (2 sources) Polyneuropathy, unspecified; Translations: [POLYNEUROPATHY UNSPECIFIED] Onset: 03-31-2022 Chronic Other nervous system disorders (2 sources) Neuropathy; Translations: [Polyneuropathy, unspecified] 11-09-2023 Chronic Other non-traumatic joint disorders (2 sources) Arthritis of right knee 02-06-2025 Chronic Other non-traumatic joint disorders (5 sources) Pain in right ankle and joints of right foot; Translations: [PAIN IN RIGHT ANKLE] Onset: 12-23-2021 Episodic Other non-traumatic joint disorders (4 sources) Pain in right knee; Translations: [Pain in joint, lower leg] 08-26-2024 Episodic Residual codes; unclassified (1 source) Other specified postprocedural states; Translations: [OTH SPECIFIED POSTPROCEDURAL STATES] Onset: 05-04-2022 Episodic Residual codes; unclassified (1 source) Pain, unspecified; Translations: [Pain, unspecified] Onset: 12-02-2024 Episodic Unclassified (1 source) EMS Onset: 07-19-2024 Unclassified (1 source) Low back pain, unspecified; Translations: [Low back pain, unspecified] Onset: 06-10-2024 Unclassified (1 source) New Patient Onset: 12-11-2024 Unclassified (1 source) Lung Nodule Onset: 12-11-2024 Past or Other Problems Problem Classification Problem Date Documented Da te Episodic/Chronic E Codes: Fall (1 source) Unspecified fall, initial encounter; Translations: [Unspecified fall, initial encounter] Onset: 07-19-2024 Episodic Genitourinary symptoms and ill-defined conditions (1 source) Dysuria; Translations: [Dysuria] Onset: 06-10-2024 Episodic Mood disorders (11 sources) Mood disorders Onset: 07-23-2020 07-23-2020 Nonspecific chest pain (3 sources) Other chest pain; Translations: [Other chest pain] Onset: 10-24-2024 Episodic Other connective tissue disease (4 sources) Pain in right lower leg; Translations: [PAIN IN RIGHT LOWER LEG] Onset: 03-07-2022 Episodic Other connective tissue disease (1 source) Pain in left lower leg; Translations: [PAIN IN LEFT LOWER LEG] Onset: 03-07-2022 Episodic Other connective tissue disease (1 source) Pain in left foot; Translations: [PAIN IN LEFT FOOT] Onset: 03-03-2022 Episodic Other connective tissue disease (1 source) Fibromyalgia; Translations: [Fibromyalgia] Onset: 03-03-2024 Episodic Other gastrointestinal disorders (11 sources) Dark stools; Translations: [Other fecal abnormalities] Onset: 07-13-2020 07-13-2020 Episodic Other non-traumatic joint disorders (5 sources) Pain in left ankle and joints of left foot; Translations: [PAIN IN LEFT ANKLE] Onset: 11-02-2021 Episodic Other screening for suspected conditions (not mental disorders or infectious disease) (11 sources) History of adenomatous polyp of colon; Translations: [Encounter for screening for malignant neoplasm of colon] Onset: 07-13-2020 07-13-2020 Episodic Superficial injury; contusion (2 sources) Contusion of right hip, initial encounter; Translations: [Contusion of right front wall of thorax, initial encounter] Onset: 07-19-2024 Episodic Unclassified (11 sources) Onset: 08-02-2020 08-02-2020 Results Test Name Value Interpretation Reference Range Facility 36on 03-18-2025 36 Regarding lab result s from 03/03/2025: MD Megan Thomas MA I assume this blood test is after she started hydrochlorothiazide, her kidney function and potassium appear to be stable. Continue current management. Patient informed. [facility] 36on 02-24-2025 36 Patient returned my call. She hasn't started hydrochlorothiazide yet. She said the pharmacy had trouble obtaining it, and then she and her were out of town for a bit. She will start it today and have BMP next week. Order faxed to [facility]. [facility] 36 Regarding lab result s from 02/03/2025: MD Megan Thomas MA Creatinine is little higher after starting hydrochlorothiazide. Check with the patient if her shortness of breath and blood pressure are better. Spoke with . He said Margy was currently driving somewhere but he will have her return my call. [facility] No Panel Informationon 02-06 LOLA Dickey 02/06/2025 1:22 PM L Inj/Asp: R knee on 02/06/2025 1:20 PM Indications: pain Details: 22 G needle, anterolateral approach Medications: 40 mg methylPREDNISolone acetate 40 MG/ML Outcome: tolerated well, no immediate complications E UTILIZING ASEPTIC TECHNIQUE PT GIVEN INJECTION IN RIGHT KNEE, NEUROVASC INTACT S/P INJ, TOLERATED WELL Procedure, treatment alternatives, risks and benefits explained, specific risks discussed. Consent was given by the patient. 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 ([id number]) [address], [address] [place] [address] Mycobacterium sp identified Org specific cx Nom (Unsp spec) SPECIMEN NOTES SPECIMEN 1 AFB SMEAR NO ACID FAST BACILLI (CONCENTRATED SMEAR) CULTURE RESULTS NO ACID FAST BACILLI ISOLATED IN 8 WEEKS [facility] Comment on above: Performed By: #### 5 43-9 #### [facility] ([id number]) [address] [place] [address] AND DIFFon 2024 BODY FLUID COMMENT Interpreta tion -------- Normal [facility] Comment on above: Result Comment: Refe rence values for this fluid type are undefined, as fluid accumulation is considered abnormal. Performed By: #### B FCT #### [facility] ([id number]) [address], [address] [place] [address] FLUID CLARITY TURBID Normal [facility] Comment on above: Performed By: #### B FCT #### [facility] ([id number]) [address], [address] [place] [address] FLUID COLOR COLORLESS Normal [facility] Comment on above: Performed By: #### B FCT #### [facility] ([id number]) [address], [address] [place] [address] FLUID EOSINOPHIL 12 % Normal [facility] Comment on above: Performed By: #### B FCT #### [facility] ([id number]) [address], [address] [place] [address] FLUID LYMPHOCYTE 1 % Normal [facility] Comment on above: Performed By: #### B FCT #### [facility] ([id number]) [address], [address] [place] [address] FLUID NEUTROPHILS 85 % Normal [facility] Comment on above: Performed By: #### B FCT #### [facility] ([id number]) [address], [address] [place] [address] 129 /uL Normal [facility] Comment on above: Performed By: #### B FCT #### [facility] ([id number]) [address] [place] [address] FLUID SPECIMEN TYPE BRONCHIAL WASHING Normal [facility] Comment on above: Result Comment: RIGH T LUNG, MIDDLE LOBE Performed By: #### B FCT #### [facility] ([id number]) [address] [place] [address] MACROPHAGES 2 % Normal [facility] Comment on above: Performed By: #### B FCT #### [facility] ([id number]) [address] [place] [address] 1065 /uL Normal [facility] Comment on above: Performed By: #### B FCT #### [facility] ([id number]) [address] [place] [address] BODY FLUID COMMENT Interpreta tion -------- Normal [facility] Comment on above: Result Comment: Refe rence values for this fluid type are undefined, as fluid accumulation is considered abnormal. Assorted lining cells present. SEE CYTOLOGY REPORT Corrected on 12/26 AT 0449: Previously reported as Interpretation Reference values for this fluid type are undefined, as fluid accumulation is considered abnormal. Assorted lining cells present., Corrected on 12/25 AT 2243: Previously reported as Interpretation Reference values for this fluid type are undefined, as fluid accumulation is considered abnormal. Performed By: #### B FCT #### [facility] ([id number]) [address], [address] [place] [address] FLUID CLARITY TURBID Normal [facility] Comment on above: Performed By: #### B FCT #### [facility] ([id number]) [address], [address] [place] [address] FLUID COLOR RED Normal [facility] Comment on above: Performed By: #### B FCT #### [facility] ([id number]) [address], [address] [place] [address] FLUID EOSINOPHIL 3 % Normal [facility] Comment on above: Performed By: #### B FCT #### [facility] ([id number]) [address], [address] [place] [address] FLUID LYMPHOCYTE 13 % Normal [facility] Comment on above: Performed By: #### B FCT #### [facility] ([id number]) [address], [address] [place] [address] FLUID NEUTROPHILS 81 % Normal [facility] Comment on above: Performed By: #### B FCT #### [facility] ([id number]) [address], [address] [place] [address] [place] [address] /uL Normal [facility] Comment on above: Performed By: #### B FCT #### [facility] ([id number]) [address] [facility], [address] [place] [address] FLUID SPECIMEN TYPE BRONCHOALVEOLAR LAVAGE Normal [facility] Comment on above: Result Comment: RIGH T LUNG, MIDDLE LOBE Performed By: #### B FCT #### [facility] ([id number]) [address], [address] [place] [address] MACROPHAGES 3 % Normal [facility] Comment on above: Performed By: #### B FCT #### [facility] ([id number]) [address], [address] [place] [address] 4 /uL Normal [facility] Comment on above: Performed By: #### B FCT #### [facility] ([id number]) [address] [place] [address] Cytologyon 12-25-2024 Cytology Normal [facility] Comment on above: Result Comment: [facility] [address] [place] [address] Cytology Consultation ADDENDUM ND Patient Name:MARGY OAKES:1945 (Age: 79)Gender:FTaken:12/25/2024Reported:12/29/2024 16:11Physician(s):Isidra Simmons MD ([phone])Copy To: Rec. #:[id number]: #[id number] Final Cytologic Diagnosis 1. Right middle lobe, ION- EBUS FNA: Positive for METASTATIC CARCINOMA, consistent with primary breast origin. See comment. 2. 4 R, ION-EBUS, FNA: No malignant cells are identified. . 3. Right middle lobe bronchoalveolar lavage: Positive for METASTATIC CARCINOMA, consistent with primary breast origin. See comment. 4. Right middle lobe bronchial washing: No malignant cells identified. Comment: Immunohistochemistry (with appropriate controls) was performed on specimen parts 1 and 3, revealing the following results. There is positive staining for GATA3 in the tumor cells, with negative staining for TTF-1 and Napsin A, supporting the above interpretation. In part 1, immunohistochemistry for estrogen receptor, progesterone receptors and HER2/sarahi overexpression are being performed, results of which will be reported in an addendum. /12/26/2024 Interpretation performed at [facility], [address] [place] [address], License number: [id number].Electronically Signed Out By Min Acuna MD Additional Report(s): Addendum (PHS) Date Reported: 01/01/2025 BREAST BIOMARKER REPORTING TEMPLATE Estrogen Receptor (ER) Positive (percentage of cells with nuclear positivity: 85%); Average intensity of staining: Strong Internal control cells absent Progesterone Receptor (PgR) Positive (percentage of cells with nuclear positivity: 90%); Average intensity of staining: Strong Internal control cells absent HER2 (by immunohistochemistry) Equivocal (Score 2+) - See note. Percentage of cells with uniform intense complete membrane stainin% Note: The tissue block on specimen part 1 has been sent out for HER2/sarahi studies by FISH analysis Cold ischemia and fixation times meet the requirements specified in the latest version of the ASCO/CAP guidelines: [] All external controls reacted appropriately. Methods - Block: 1A Fixative: Formalin (Formalin-fixed, paraffin embedded tissue) Estrogen Receptor: Food and Drug Administration (FDA) cleared (test/vendor): Confirm/ [place], Primary Antibody: SP1 Progesterone Receptor: FDA cleared (test/vendor): Confirm/ [place], Primary Antibody: 1E2 HER2: FDA approved (test/vendor): Pathway/ [place], Primary Antibody: 4B5 Detection System (ER, PgR and/or HER2): [place] ultraView [place] DAB Detection Kit (indirect biotin-free detection) Scoring Criteria Estrogen Receptor and Progesterone Receptor: Positive (ER only) - 10% or more tumor cells are immunoreactive Low positive (ER only) - 1-10% of tumor cells are immunoreactive Positive (PgR) - 1% or more tumor cells are immunoreactive Negative - less than 1% of tumor cells are immunoreactive HER2 by immunohistochemistry: Negative (Score 0) - No staining observed or membrane staining that is incomplete and is faint/barely perceptible and within in <10% of tumor cells Negative (Score 1+) - Incomplete membrane staining that is, faint/barely perceptible and in >10% of tumor cells Equivocal (score 2+) - Weak to moderate complete membrane staining in >10% of tumor cells or unusual staining patterns (including circumferential membrane staining that is intense but within <10% of tumor cells) Positive (Score 3+) - Circumferential membrane staining that is complete, intense, and in >10% of tumor cells References 1. Aydee CARDENAS, Diana SNIDER, Violet Beck, et al. Estrogen and Progesterone receptor Testing in Breast Cancer; [place] Society of Clinical Oncology/College of [place] Pathologists Guideline Update. Arch Pathol Lab Med. doi:10.5858/arpa.8990-9451-LE. 2. Erwin SAUCEDA, Diana CANTU, Aydee CARDENAS, et al. Human Epidermal Growth Factor Receptor 2 Testing in Breast Cancer; [place] Society of Clinical Oncology/College of [place] Pathologist Clinical Practice Guideline Focused Update. Arch Pathol Lab Med. doi: 10.5858/arpa.3049-5327-KL. Electronically Signed Out Min Acuna MD Addendum ([facility]) Date Reported: 01/08/2025 Results of testing for HER2, Breast Tumor, FISH, Tissue dated 01/07/2025 are received from [facility], [address] [place] [address] and are as follows: Result Summary: Negative Interpretation: There is no evidence of HER2 (ERBB2) gene amplification in this tumor sample. According to current ASCO/CAP guidelines for HER2 testing in breast cancer, dual-probe in situ hybridization (UMM) results indicating a HER2/ (more content not included)... FUNGAL CULTUREon 12-25-2024 Fungus identified Cx Nom (Unsp spec) SPECIMEN NOTES SPECIMEN 3 FUNGAL SMEAR NO FUNGAL ELEMENTS SEEN ON CONCENTRATED SMEAR CULTURE RESULTS NO FUNGUS ISOLATED AFTER 4 WEEKS Normal [facility] Comment on above: Performed By: #### 5 80-1 #### [facility] ([id number]) [address], [address] [place] [address] Fungus identified Cx Nom (Unsp spec) SPECIMEN NOTES SPECIMEN 1 FUNGAL SMEAR NO FUNGAL ELEMENTS SEEN ON CONCENTRATED SMEAR CULTURE RESULTS NO FUNGUS ISOLATED AFTER 4 WEEKS Normal [facility] Comment on above: Performed By: #### 5 80-1 #### [facility] ([id number]) [address], [address] [place] [address] LOWER RESPIRATORY CULTUREon 12-25-2024 Bacteria identified Respiratory culture Nom (Sput) SPECIMEN NOTES SPECIMEN 3 GRAM STAIN >25 WHITE BLOOD CELLS/LPF 0 to 1 SQUAMOUS EPITHELIAL CELLS/LPF 0 CILIATED EPITHELIAL CELLS/LPF NO ORGANISMS SEEN CULTURE RESULTS NO GROWTH 2 DAYS Normal [facility] Comment on above: Performed By: #### 6 24-7 #### [facility] ([id number]) [address], [address] [place] [address] Bacteria identified Respiratory culture Nom (Sput) SPECIMEN NOTES SPECIMEN 1 GRAM STAIN 0 to 1 WHITE BLOOD CELLS/LPF 0 SQUAMOUS EPITHELIAL CELLS/LPF 0 CILIATED EPITHELIAL CELLS/LPF NO ORGANISMS SEEN CULTURE RESULTS NO GROWTH 2 DAYS Normal [facility] Comment on above: Performed By: #### 6 24-7 #### [facility] ([id number]) [address] [place] [address], [address] [place] [address] Surgical Pathologyon 025 Surgical Pathology Normal [facility] Comment on above: Result Comment: [facility] [address] [place] [address] Surgical Pathology Consultation ADDENDUM ND Patient Name:MARGY OAKES:1945 (Age: 79)Gender:FTaken:12/25/2024Reported:12/30/2024Physician(s):Isidra Simmons MD ([phone])Copy To: Rec. #:[id number]: #[id number] Final Pathologic Diagnosis Right lung, middle lobe nodule, needle biopsy: CARCINOMA, consistent with METASTATIC MAMMARY CARCINOMA. Comment The tumor is glandular and papillary. Immunostains were performed, with adequate controls, and reveal strong positivity for GATA3 and CK7 with negative TTF1, Napsin-A and p40. The morphology and immunophenotype are those of a metastatic mammary carcinoma. ER, ND and Her2 will be performed and reported as an addendum. Report Electronically Signed Out 12/30/2024Gene MD Aldair Addendum ([facility]) Date Reported: 12/31/2024 BREAST BIOMARKER REPORTING TEMPLATE Estrogen Receptor (ER) Positive (percentage of cells with nuclear positivity: 91-100%); Average intensity of staining: Moderate to strong Progesterone Receptor (PgR) Positive (percentage of cells with nuclear positivity: 91-100%); Average intensity of staining: Strong HER2 (by immunohistochemistry) Equivocal (Score 2+) Percentage of cells with uniform intense complete membrane stainin% Cold ischemia and fixation times meet the requirements specified in the latest version of the ASCO/CAP guidelines: Y (estimated 28 hrs fixation time). All external controls reacted appropriately. Methods - Block: A Fixative: Formalin (Formalin-fixed, paraffin embedded tissue) Estrogen Receptor: Food and Drug Administration (FDA) cleared (test/vendor): Confirm/ [place], Primary Antibody: SP1 Progesterone Receptor: FDA cleared (test/vendor): Confirm/ [place], Primary Antibody: 1E2 HER2: FDA approved (test/vendor): Pathway/ [place], Primary Antibody: 4B5 Detection System (ER, PgR and/or HER2): [employer] ultraView [place] DAB Detection Kit (indirect biotin-free detection) Scoring Criteria Estrogen Receptor and Progesterone Receptor: Positive (ER only) - 10% or more tumor cells are immunoreactive Low positive (ER only) - 1-10% of tumor cells are immunoreactive Positive (PgR) - 1% or more tumor cells are immunoreactive Negative - less than 1% of tumor cells are immunoreactive HER2 by immunohistochemistry: Negative (Score 0) - No staining observed or membrane staining that is incomplete and is faint/barely perceptible and within in <10% of tumor cells Negative (Score 1+) - Incomplete membrane staining that is, faint/barely perceptible and in >10% of tumor cells Equivocal (score 2+) - Weak to moderate complete membrane staining in >10% of tumor cells or unusual staining patterns (including circumferential membrane staining that is intense but within <10% of tumor cells) Positive (Score 3+) - Circumferential membrane staining that is complete, intense, and in >10% of tumor cells References 1. Aydee CARDENAS, Diana SNIDER, Violet M, et al. Estrogen and Progesterone receptor Testing in Breast Cancer; [place] Society of Clinical Oncology/College of [place] Pathologists Guideline Update. Arch Pathol Lab Med. doi:10.5858/arpa.3821-1746-RX. 2. Erwin SAUCEDA, Aydee Patricio, et al. Human Epidermal Growth Factor Receptor 2 Testing in Breast Cancer; [place] Society of Clinical Oncology/College of [place] Pathologist Clinical Practice Guideline Focused Update. Arch Pathol Lab Med. doi: 10.5858/arpa.6566-1754-IE. The tissue block is being sent for Her2 analysis by FISH. Electronically Signed Out Agustin Quinteros MD Addendum (PHS) Date Reported: 01/12/2025 Results of testing for HER2, Breast Tumor, FISH, Tissue dated 01/06/2025 are received from [facility], [address] [place] [address] and are as follows: Result Summary: Negative Interpretation: There is no evidence of HER2 (ERBB2) gene amplification in this tumor sample. According to current ASCO/CAP guidelines for HER2 testing in breast cancer, dual-probe in situ hybridization (UMM) results indicating a HER2/centromere ratio less than 2.0 and an average HER2 copy number less than 4.0 signals per cell are interpreted as UMM negative ( Group 5 ) (1). References: 1. Erwin, et al., J Clin Oncol, 36(20):5306-6974, 2018 Result nuc umm(L28Y7q5-1,CSQ7v3-9) HER2/D17Z1 ratio: 1.22 Average HER2 signals per cell: 3.6 Average D17Z1 signals per cell: 2.9 Reason for Referral: HER2 equivocal metastatic mammary carcinoma Source: Right lung Method: FISH using probes for HER2 (17q12) and a chromosome 17 centromere (D17Z1) control probe ([employer] Two technologists score signals in (more content not included)... APTTon 12-12-2024 aPTT Coag (PPP) [Time] 34 s [facility] BASIC METABOLIC PANLon 12-12 Anion gap [Moles/Vol] 10 mmol/L Normal 5-15 [facility] Comment on above: Performed By: #### P INR, 56250-0 #### [facility] ([id number]) [address] [place] [address] #### CBCA, BMP #### [facility] ([id number]) [address] [place] [address] Calcium [Mass/Vol] 9.6 mg/dL Normal 8.5-10.5 [facility] Comment on above: Performed By: #### P INR, 97056-8 #### [facility] ([id number]) [address] [place], [place] [address] #### CBCA, BMP #### [facility] ([id number]) [address] [place] [address] Chloride [Moles/Vol] 102 mmol/L Normal 98-109 [facility] Comment on above: Performed By: #### P INR, 17522-9 #### [facility] ([id number]) [address] [place], [place] [address] #### CBCA, BMP #### [facility] ([id number]) [address] [place] [address] CO2 [Moles/Vol] 28 mmol/L Normal 22-32 [facility] Comment on above: Performed By: #### P INR, 47227-1 #### [facility] ([id number]) [address] [place], [place] [address] #### CBCA, BMP #### [facility] ([id number]) [address] [place] [address] Creatinine [Mass/Vol] 1.18 mg/dL High 0.40-1.00 [facility] Comment on above: Result Comment: METH OD TRACEABLE TO IDMS STANDARD Performed By: #### P INR, 80982-7 #### [facility] ([id number]) [address] [place], [place] [address] #### CBCA, BMP #### [facility] ([id number]) [address] [place] [address] GFR/1.73 sq M.predicted among non-blacks MDRD (S/P/Bld) [Vol rate/Area] 47 mL/min/{1.73_m2} Low >59 [facility] Comment on above: Result Comment: Reported eGFR is based on the CKD-EPI 2020 equation that does not use a race coefficient. Performed By: #### P INR, 62886-3 #### [facility] ([id number]) [address] [place], [place] [address] #### CBCA, BMP #### [facility] ([id number]) [address] [place] [address] Glucose [Mass/Vol] 80 mg/dL Normal 65-99 [facility] Comment on above: Performed By: #### P INR, 89840-8 #### [facility] ([id number]) [address] [place], [place] [address] #### CBCA, BMP #### [facility] ([id number]) [address] [place] [address] Potassium [Moles/Vol] 4.6 mmol/L Normal 3.5-5.0 [facility] Comment on above: Performed By: #### P INR, 30173-3 #### [facility] ([id number]) [address] [place], [place] [address] #### CBCA, BMP #### [facility] ([id number]) [address] [place] [address] Sodium [Moles/Vol] 140 mmol/L Normal 134-146 [facility] Comment on above: Performed By: #### P INR, 19047-0 #### [facility] ([id number]) [address] [place] [address] #### CBCA, BMP #### [facility] ([id number]) [address] [place] [address] Urea nitrogen [Mass/Vol] 16 mg/dL Normal 5-27 [facility] Comment on above: Performed By: #### P INR, 15460-3 #### [facility] ([id number]) [address] [place] [address] #### CBCA, BMP #### [facility] ([id number]) [address], [address] [place] [address] Basic Metabolic Panelon - Anion gap [Moles/Vol] 10 mmol/L 5 - 15 mmol/L [facility] Calcium [Mass/Vol] 9.6 mg/dL 8.5 - 10. 5 mg/dL [facility] Chloride [Moles/Vol] 102 mmol/L 98 - 109 mmol/L [facility] CO2 [Moles/Vol] 28 mmol/L 22 - 32 mmol/L [facility] Creatinine [Mass/Vol] 1.18 mg/dL High 0.40 - 1.00 mg/dL [facility] Comment on above: METHOD TRACEABLE TO IDMA STANDARD eGFR (CKD-EPI)non-race dependent 47 Low - PINF [facility] Comment on above: Reported eGFR is based on the CKD-EPI 2020 equation that does not use a race coefficient. Glucose [Mass/Vol] 80 mg/dL 65 - 99 mg/dL [facility] Interpretation and review of laboratory results Abnormal [facility] Potassium [Moles/Vol] 4.6 mmol/L 3.5 - 5.0 mmol/L [facility] Sodium [Moles/Vol] 140 mmol/L 134 - 146 mmol/L [facility] Urea nitrogen [Mass/Vol] 16 mg/dL 5 - 27 mg/dL [facility] CBC AND AUTO DIFFon 12-12-19 25 ABSOLUTE BASOPHIL 0.1 X10E9/L Normal 0.0-0.2 [facility] Comment on above: Performed By: #### P INR, 71000-7 #### [facility] ([id number]) [address] [place], [place] [address] #### CBCA, BMP #### [facility] ([id number]) [address], [address] [place] [address] ABSOLUTE NEUTROPHIL 2.6 X10E9/L Normal 1.5-6.6 [facility] Comment on above: Performed By: #### P INR, 90113-1 #### [facility] ([id number]) [address] [place], [place] [address] #### CBCA, BMP #### [facility] ([id number]) [address], [address] [place] [address] Basophils/100 WBC (Bld) 1.1 % Normal [facility] Comment on above: Performed By: #### P INR, 42309-3 #### [facility] ([id number]) [address] [place], [place] [address] #### CBCA, BMP #### [facility] ([id number]) [address], [address] [place] [address] Eosinophils (Bld) [#/Vol] 0.3 10*3/uL Normal 0.0-0.4 [facility] Comment on above: Performed By: #### P INR, 34615-1 #### [facility] ([id number]) [address] [place], [place] [address] #### CBCA, BMP #### [facility] ([id number]) [address] [place] [address] Eosinophils/100 WBC (Bld) 6.0 % Normal [facility] Comment on above: Performed By: #### P INR, 89977-6 #### [facility] ([id number]) [address] [place], [place] [address] #### CBCA, BMP #### [facility] ([id number]) [address] [place] [address] Erythrocyte distribution width (RBC) [Ratio] 13.5 % Normal 11.5-15.0 [facility] Comment on above: Performed By: #### P INR, 42818-1 #### [facility] ([id number]) [address] [place] [address] #### CBCA, BMP #### [facility] ([id number]) [address] [place] [address] Hematocrit (Bld) [Volume fraction] 33.9 % Low 35-47 [facility] Comment on above: Performed By: #### P INR, 89441-6 #### [facility] ([id number]) [address] [place] [address] #### CBCA, BMP #### [facility] ([id number]) [address] [place] [address] Hemoglobin (Bld) [Mass/Vol] 11.6 g/dL Low 11.7-15.5 [facility] Comment on above: Performed By: #### P INR, 42963-6 #### [facility] ([id number]) [address] [place] [address] #### CBCA, BMP #### [facility] [facility] ([id number]) [address], [address] [place] [address] Lymphocytes (Bld) [#/Vol] 1.7 10*3/uL Normal 1.0-3.5 [facility] Comment on above: Performed By: #### P INR, 75876-7 #### [facility] ([id number]) [address] [place], [place] [address] #### CBCA, BMP #### [facility] ([id number]) [address], [address] [place] [address] Lymphocytes/100 WBC (Bld) 33.4 % Normal [facility] Comment on above: Performed By: #### P INR, 68322-5 #### [facility] ([id number]) [address] [place] [address] #### CBCA, BMP #### [facility] ([id number]) [address], [address] [place] [address] MCH (RBC) [Entitic mass] 32.6 pg Normal 27-34 [facility] Comment on above: Performed By: #### P INR, 91000-4 #### [facility] ([id number]) [address] [place] [address] #### CBCA, BMP #### [facility] ([id number]) [address], [address] [place] [address] MCHC (RBC) [Mass/Vol] 34.3 g/dL Normal 32-36 [facility] Comment on above: Performed By: #### P INR, 93844-2 #### [facility] ([id number]) [address] [place], [place] [address] #### CBCA, BMP #### [facility] ([id number]) [address], [address] [place] [address] MCV (RBC) [Entitic vol] 95 fL Normal 80-100 [facility] Comment on above: Performed By: #### P INR, 51011-9 #### [facility] ([id number]) [address] [place], [place] [address] #### CBCA, BMP #### [facility] ([id number]) [address], [address] [place] [address] Monocytes (Bld) [#/Vol] 0.4 10*3/uL Normal 0-0.9 [facility] Comment on above: Performed By: #### P INR, 06377-8 #### [facility] ([id number]) [address] [place] [address] #### CBCA, BMP #### [facility] ([id number]) [address], [address] [place] [address] Monocytes/100 WBC (Bld) 8.3 % Normal [facility] Comment on above: Performed By: #### P INR, 13197-4 #### [facility] ([id number]) [address] [place], [place] [address] #### CBCA, BMP #### [facility] ([id number]) [address], [address] [place] [address] Neutrophils/100 WBC (Bld) 51.2 % Normal [facility] Comment on above: Performed By: #### P INR, 17147-9 #### [facility] ([id number]) [address] [place], [place] [address] #### CBCA, BMP #### [facility] ([id number]) [address], [address] [place] [address] Platelet mean volume (Bld) [Entitic vol] 7.6 fL Normal 7-12 [facility] Comment on above: Performed By: #### P INR, 89392-3 #### [facility] ([id number]) [address] [place], [place] [address] #### CBCA, BMP #### [facility] ([id number]) [address], [address] [place] [address] Platelets (Bld) [#/Vol] 244 10*3/uL Normal 150-450 [facility] Comment on above: Performed By: #### P INR, 87907-7 #### [facility] ([id number]) [address] [place] [address] #### CBCA, BMP #### [facility] ([id number]) [address], [address] [place] [address] RBC COUNT 3.56 X10E12/L Low 3.80-5.20 [facility] Comment on above: Performed By: #### P INR, 94400-8 #### [facility] ([id number]) [address] [place] [address] #### CBCA, BMP #### [facility] ([id number]) [address] [place] [address], [address] [place] [address] WBC (Bld) [#/Vol] 5.0 10*3/uL Normal 4.0-11.0 [facility] Comment on above: Performed By: #### P INR, 54436-8 #### [facility] ([id number]) [address] [place] [address] #### CBCA, BMP #### [facility] ([id number]) [address] [place] [address], [address] [place] [address] CBC auto differentialon - Basophils (Bld) [#/Vol] 0.1 10*3/uL [facility] Basophils/100 WBC (Bld) 1.1 % [facility] Eosinophils (Bld) [#/Vol] 0.3 10*3/uL [facility] Eosinophils/100 WBC (Bld) 6 % [facility] Erythrocyte distribution width (RBC) [Ratio] 13.5 % 11.5 - 15.0 % [facility] Hematocrit (Bld) [Volume fraction] 33.9 % Low 35 - 47 % [facility] Hemoglobin (Bld) [Mass/Vol] 11.6 g/dL Low 11.7 - 15.5 g/dL [facility] Interpretation and review of laboratory results Abnormal [facility] Lymphocytes (Bld) [#/Vol] 1.7 10*3/uL [facility] Lymphocytes/100 WBC (Bld) 33.4 % [facility] MCH (RBC) [Entitic mass] 32.6 pg 27 - 34 pg [facility] MCHC (RBC) [Mass/Vol] 34.3 g/dL 32 - 36 g/dL [facility] MCV (RBC) [Entitic vol] 95 fL 80 - 100 fL [facility] Monocytes (Bld) [#/Vol] 0.4 10*3/uL [facility] Monocytes/100 WBC (Bld) 8.3 % [facility] Neutrophils (Bld) [#/Vol] 2.6 10*3/uL [facility] Neutrophils/100 WBC (Bld) 51.2 % [facility] Platelet mean volume (Bld) [Entitic vol] 7.6 fL 7 - 12 fL [facility] Platelets (Bld) [#/Vol] 244 10*3/uL [facility] RBC (Bld) [#/Vol] 3.56 10*6/uL Low [facility] WBC corrected for nucl RBC Auto (Bld) [#/Vol] 5 [facility] CT ION CHEST WO CONTon 12-12 CT ION CHEST WO CONT CT ION CHEST WO CONT CT ION CHEST WO CONT CLINICAL INDICATION: Pulmonary nodules/lesions, multiple COMPARISON: CT chest 11/14/2024 TECHNIQUE: Noncontrast CT chest was performed. Coronal and sagittal reformatted images were generated and reviewed. Automated exposure control was utilized. Computer aided detection for pulmonary nodules was performed utilizing [employer] software. FINDINGS: Lower Neck & Thyroid: Unremarkable. Airway, Pleura, & Lungs: There are more than 30 pulmonary nodules in the lungs scattered throughout all lobes of the lungs. Nodules overall are similar in appearance to prior study of 11/14/2024. The largest pulmonary nodule in each lobe is as follows, series 9: -Image 35: Right upper lobe, 0.9 cm, unchanged -Image 66: Right lower lobe, 0.9 cm, unchanged -Image 67: Right middle lobe, 0.7 cm, unchanged -Image 31: Left upper lobe, 0.9 cm, unchanged -Image 75: Left lower lobe, 1.4 cm, unchanged Central airway is patent. Similar trace right-sided pleural effusion. No pneumothorax. No pneumonia. Thoracic Aorta & Great Vessels: Normal in diameter. Mild atherosclerotic calcification. Pulmonary Arteries: The main pulmonary artery is nondilated. Heart & Pericardium: Severe coronary arterial calcification. Unremarkable cardiac morphology and pericardium. Lymph Nodes: No enlarged thoracic lymph nodes. Mediastinum & Esophagus: Indeterminate nodule in the anterior mediastinum measuring 1.1 x 0.7 cm (08/10). Compared to 0.9 x 0.7 cm previously. Visualized Upper Abdomen: Granulomatous calcifications in the spleen. Bones & Chest Wall: Unchanged mild compression deformity of T5. No destructive lytic or sclerotic lesions. Postsurgical changes of a bilateral mastectomy. IMPRESSION: 1. Numerous pulmonary nodules measuring up to 1.4 cm highly suspicious for metastases. Nodules are similar to the prior CT 11/14/2024. 2. Indeterminate nodule in the anterior mediastinum measuring 1.1 x 0.7 cm may represent a prominent lymph node versus additional site of metastases. All CT scans at this facility use dose modulation, iterative reconstruction, and/or weight based dosing when appropriate to reduce radiation dose to as low as reasonably achievable. Finalized by Emerson Carlos MD on 12/12/2024 9:50 AM Normal [facility] No Panel Informationon 12-12 [facility] PROTIME AND INRon 12-12-2024 INR Coag (PPP) [Relative time] 1.0 {INR} Normal 0.8-1.1 [facility] Comment on above: Performed By: #### P INR, 77541-7 #### [facility] ([id number]) [address] [place] [address] #### CBCMike, KADEN #### [facility] ([id number]) [address] [facility], [address] [place] [address] PT Coag (PPP) [Time] 11.3 s Normal 9.8-13.2 [facility] Comment on above: Performed By: #### P INR, 85121-4 #### [facility] ([id number]) [address] [place] [address] #### CBCA, BMP #### [facility] ([id number]) [address] [facility], [address] [place] [address] Protime & INRon 12-12-2024 INR Coag (PPP) [Relative time] 1 {INR} [facility] PT Coag (PPP) [Time] 11.3 s [facility] aP[facility] Coag (PPP) [Time]on aPTT Coag (Bld) [Time] 34 s Normal 26-37 [facility] Comment on above: Performed By: #### P INR, 74292-6 #### [facility] ([id number]) [address] [place] [address] #### CBCA, BMP #### [facility] ([id number]) [address] [facility], [address] [place] [address] HPon 12-09-2024 ---- -------- Attestation signed by Kimmy Rosado MD at 12/09/2024 9:23 AM I personally saw and examined the patient on the same date of service as resident/fellow Dr howard. I discussed the findings and therapeutic plan with the resident/fellow Dr Howard. I agree with the documentation, except for any edits/updates below. Teaching Physician's Revisions: None Kimmy Rosado MD, [facility] -------- H&P reviewed. The patient was examined and there are no changes to the H&P. [facility] NURSNOTEon 12-09-2024 NURSNOTE RN educated pt on d/ c instructions. This included: site care, limited physical activity, resume normal diet, future appointments, medications, and moderate sedation instructions. RN educated pt on when to notify physician and when to go to the hospital. RN provided pt with arm sling and educated pt on importance of not using arm for 24 hours for radial sites. RN encouraged pt to voice any questions or concerns, and answered any questions or concerns if pt verbalized. Pt was wheeled off of unit with all of belongings. [facility] ALT No additional P-5'-P [Ca talytic activity/Vol]on 11-13-2024 ALT [Catalytic activity/Vol] 15 U/L Normal 0-31 [facility] Comment on above: Performed By: #### C BCA CMP, 45134-6 #### [facility] ([id number]) [address], [address] [address] Kaley 11-13-2024 AST [Catalytic activity/Vol] 18 U/L Normal 0-41 [facility] Comment on above: Performed By: #### C BCA, CMP, 77348-6 #### [facility] ([id number]) [address] [address] BASIC METABOLIC PANLon 11-13 Anion gap [Moles/Vol] 7 mmol/L Normal 5-15 [facility] Comment on above: Performed By: #### C BCA, CMP, 71736-2 #### [facility] ([id number]) [address] [address] Calcium [Mass/Vol] 9.7 mg/dL Normal 8.5-10.5 [facility] Comment on above: Performed By: #### C BCA, CMP, 31864-3 #### [facility] ([id number]) [address], [address] [place] [address] Chloride [Moles/Vol] 102 mmol/L Normal 98-109 [facility] Comment on above: Performed By: #### Marciano URENA CMP, 43474-9 #### [facility] ([id number]) [address], [address] [place] [address] CO2 [Moles/Vol] 32 mmol/L Normal 22-32 [facility] Comment on above: Performed By: #### Marciano URENA CMP, 95236-8 #### [facility] ([id number]) [address], [address] [place] [address] Creatinine [Mass/Vol] 1.31 mg/dL High 0.40-1.00 [facility] Comment on above: Result Comment: METH OD TRACEABLE TO IDMS STANDARD Performed By: #### Marciano URENA CMP, 67293-1 #### [facility] ([id number]) [address], [address] [place] [address] GFR/1.73 sq M.predicted among non-blacks MDRD (S/P/Bld) [Vol rate/Area] 41 mL/min/{1.73_m2} Low >59 [facility] Comment on above: Result Comment: Reported eGFR is based on the CKD-EPI 2020 equation that does not use a race coefficient. Performed By: #### Marciano URENA CMP, 52227-4 #### [facility] ([id number]) [address], [address] [place] [address] Glucose [Mass/Vol] 98 mg/dL Normal 65-99 [facility] Comment on above: Performed By: #### Marciano URENA CMP, 48819-9 #### [facility] ([id number]) [address], [address] [place] [address] Potassium [Moles/Vol] 5.3 mmol/L High 3.5-5.0 [facility] Comment on above: Performed By: #### Marciano URENA CMP, 61968-9 #### [facility] ([id number]) [address], [address] [place] [address] Sodium [Moles/Vol] 141 mmol/L Normal 134-146 [facility] Comment on above: Performed By: #### Marciano URENA, CMP, 18205-8 #### [facility] ([id number]) [address], [facility] [address] [place] [address] Urea nitrogen [Mass/Vol] 19 mg/dL Normal 5-27 [facility] Comment on above: Performed By: #### Marciano URENA CMP, 27126-0 #### [facility] ([id number]) [address], [address] [place] [address] CBC AND AUTO DIFFon 11-13-19 25 ABSOLUTE BASOPHIL 0.0 X10E9/L Normal 0.0-0.2 [facility] Comment on above: Performed By: #### Marciano URENA CMP, 31543-7 #### [facility] ([id number]) [address], [facility] [address] [place] [address] ABSOLUTE NEUTROPHIL 2.1 X10E9/L Normal 1.5-6.6 [facility] Comment on above: Performed By: #### Marciano URENA CMP, 18855-6 #### [facility] ([id number]) [address], [facility] [address] [place] [address] Basophils/100 WBC (Bld) 0.5 % Normal [facility] Comment on above: Performed By: #### Marciano URENA, CMP, 19516-2 #### [facility] ([id number]) [address] [address] [place] [address] Eosinophils (Bld) [#/Vol] 0.3 10*3/uL Normal 0.0-0.4 [facility] Comment on above: Performed By: #### Marciano URENA CMP, 27939-4 #### [facility] ([id number]) [address] [address] [place] [address] Eosinophils/100 WBC (Bld) 5.6 % Normal [facility] Comment on above: Performed By: #### Marciano URENA CMP, 51232-4 #### [facility] ([id number]) [address] [address] [place] [address] Erythrocyte distribution width (RBC) [Ratio] 13.5 % Normal 11.5-15.0 [facility] Comment on above: Performed By: #### Marciano URENA CMP, 87330-3 #### [facility] ([id number]) [address] [address] [place] [address] Hematocrit (Bld) [Volume fraction] 34.0 % Low 35-47 [facility] Comment on above: Performed By: #### Marciano URENA CMP, 10500-1 #### [facility] ([id number]) [address] [address] [place] [address] Hemoglobin (Bld) [Mass/Vol] 11.4 g/dL Low 11.7-15.5 [facility] Comment on above: Performed By: #### Marciano URENA CMP, 06979-9 #### [facility] ([id number]) [address] [address] [place] [address] Lymphocytes (Bld) [#/Vol] 1.8 10*3/uL Normal 1.0-3.5 [facility] Comment on above: Performed By: #### Marciano URENA CMP, 21516-8 #### [facility] ([id number]) [address] [address] [place] [address] Lymphocytes/100 WBC (Bld) 38.8 % Normal [facility] Comment on above: Performed By: #### Marciano URENA CMP, 98957-1 #### [facility] ([id number]) [address] [address] [place] [address] MCH (RBC) [Entitic mass] 31.9 pg Normal 27-34 [facility] Comment on above: Performed By: #### Marciano URENA CMP, 77067-9 #### [facility] ([id number]) [address], [address] [place] [address] MCHC (RBC) [Mass/Vol] 33.5 g/dL Normal 32-36 [facility] Comment on above: Performed By: #### Marciano URENA CMP, 45630-2 #### [facility] ([id number]) [address], [address] [place] [address] MCV (RBC) [Entitic vol] 95 fL Normal 80-100 [facility] Comment on above: Performed By: #### Marciano URENA CMP, 91947-6 #### [facility] ([id number]) [address], [address] [place] [address] Monocytes (Bld) [#/Vol] 0.4 10*3/uL Normal 0-0.9 [facility] Comment on above: Performed By: #### Marciano URENA CMP, 49145-3 #### [facility] ([id number]) [address], [address] [place] [address] Monocytes/100 WBC (Bld) 9.4 % Normal [facility] Comment on above: Performed By: #### Marciano URENA CMP, 74493-2 #### [facility] ([id number]) [address], [address] [place] [address] Neutrophils/100 WBC (Bld) 45.7 % Normal [facility] Comment on above: Performed By: #### Marciano URENA CMP, 29573-6 #### [facility] ([id number]) [address], [address] [place] [address] Platelet mean volume (Bld) [Entitic vol] 7.8 fL Normal 7-12 [facility] Comment on above: Performed By: #### Marciano URENA CMP, 87920-3 #### [facility] ([id number]) [address] [address] [place] [address] Platelets (Bld) [#/Vol] 261 10*3/uL Normal 150-450 [facility] Comment on above: Performed By: #### Marciano URENA CMP, 62070-7 #### [facility] ([id number]) [address] [address] RBC COUNT 3.57 X10E12/L Low 3.80-5.20 [facility] Comment on above: Performed By: #### Marciano URENA CMP, 28186-4 #### [facility] ([id number]) [address] [address] WBC (Bld) [#/Vol] 4.5 10*3/uL Normal 4.0-11.0 [facility] Comment on above: Performed By: #### Marciano URENA CMP, 96515-6 #### [facility] ([id number]) [address] [address] [place] [address] Lipid 1996 panelon 5 Cholesterol [Mass/Vol] 215 mg/dL High 150-200 [facility] Comment on above: Performed By: #### Marciano URENA CMP, 71521-7 #### [facility] ([id number]) [address] [address] [place] [address] Cholesterol in HDL [Mass/Vol] 57 mg/dL Normal >39 [facility] Comment on above: Result Comment: HDL <40 mg/dL - High Risk HDL > or = 40mg/dL- Desirable HDL >60 mg/dL - Negative Risk Performed By: #### Marciano URENA, CMP, 32957-8 #### [facility] ([id number]) [address], [address] [place] [address] Cholesterol in LDL [Mass/Vol] 99 mg/dL Normal <130 [facility] Comment on above: Result Comment: LDL <100 mg/dL - Desirable LDL >160 mg/dL - High Risk Performed By: #### C BCA, CMP, 87287-3 #### [facility] ([id number]) [address], [address] [place] [address] Cholesterol in VLDL [Mass/Vol] 59 mg/dL High 0-30 [facility] Comment on above: Performed By: #### Marciano BCA CMP, 19305-9 #### [facility] ([id number]) [address], [address] [place] [address] CHOLESTEROL:HDL 3.8 Normal 1.0-5.0 [facility] Comment on above: Performed By: #### Marciano BCA, CMP, 70998-7 #### [facility] ([id number]) [address], [address] [place] [address] Triglyceride [Mass/Vol] 297 mg/dL High 27-150 [facility] Comment on above: Performed By: #### Marciano BCA, CMP, 51042-2 #### [facility] ([id number]) [address], [address] [place] [address] [facility] 11-10-2024 [facility] Note Reason for cardiology consult: Chest pain and shortness of breath Chief Complaint: Chest pain and shortness of breath HPI: Margy Oakes is a 79 y.o. female history of mild coronary artery disease per cardiac catheterization 2019, hypertension, hyperlipidemia and breast cancer Reports that for few months she has been having chest pain she describes it as left-sided tightness mostly with exertion but sometimes it occurs at rest. It resolves about 5 minutes after she rests when it occurs with exertion. Also she reports shortness of breath with climbing stairs or extreme exertion. She reports that she rides stationary bike and recently she had to stop due to shortness of breath and little chest tightness. She denies orthopnea or paroxysmal nocturnal dyspnea or dizziness or palpitations or legs edema or discomfort on exertion. She reports gaining about 5 pounds over the last year or so. She denies snoring or being sleepy or tired during the daytime She never smoked. She drinks alcohol socially. She denies illicit drugs Cardiology ROS: GENERAL: Denies fever, chills, night sweats, weight loss. HEENT: Denies changes in vision, photophobia, changes in hearing, epistaxis, oral bleeding. CARDIOVASCULAR: Reports chest pain, and exertional dyspnea as described above, denies orthopnea/PND, lower extremity edema, palpitations, lightheadedness/dizzines s. RESPIRATORY: Denies SOB, coughing, wheezing GI: Denies abdominal pain, nausea/vomiting, heartburn, melena/hematochezia. RENAL: Denies dysuria, hematuria, flank pain. MSK: Denies muscle weakness/pain, arthralgias/joint pain. NEUROLOGIC: Denies LOC, weakness, numbness, headaches. SKIN: Denies abnormal rashes or bleeding. PSYCH: Denies significant anxiety, depression, sleep disturbances. Past Medical History She has a past medical history of Cancer ([facility]), Coronary artery disease, Hyperlipidemia, and Hypertension. Surgical History She has a past surgical history that includes Cardiac catheterization; Appendectomy; Breast biopsy; Tonsillectomy; Total knee arthroplasty; Foot surgery; and Mastectomy. Social History She reports that she has never smoked. She has never used smokeless tobacco. She reports current alcohol use. She reports that she does not use drugs. Family History Family History Problem Relation Name Age of Onset Cancer Mother Cancer Father Cancer Brother Allergies Pregabalin, Penicillins, and Promethazine Medications Current Outpatient Medications: amitriptyline (Elavil) 10 mg tablet, Take 20 mg by mouth at bedtime., Disp: , Rfl: atorvastatin (Lipitor) 20 mg tablet, Take 20 mg by mouth at bedtime., Disp: , Rfl: cholecalciferol, vitamin D3, 50 mcg (2,000 unit) capsule, Take 2,000 Units by mouth in the morning., Disp: , Rfl: DULoxetine (Cymbalta) [address] capsule, Take 60 mg by mouth in the morning., Disp: , Rfl: gabapentin (Neurontin) 300 mg capsule, Take 900 mg by mouth at bedtime., Disp: , Rfl: lisinopril 10 mg tablet, Take 10 mg by mouth in the morning., Disp: , Rfl: metoprolol succinate XL (Toprol-XL) 25 mg 24 hr tablet, Take 25 mg by mouth in the morning., Disp: , Rfl: omeprazole (PriLOSEC) [address] capsule, Take 20 mg by mouth in the morning., Disp: , Rfl: aspirin 81 mg EC tablet, Take 1 tablet (81 mg) by mouth in the morning., Disp: 30 tablet, Rfl: 11 isosorbide mononitrate ER (Imdur) 60 mg 24 hr tablet, Take 1 tablet (60 mg) by mouth in the morning., Disp: 30 tablet, Rfl: 11 nitroglycerin (Nitrostat) 0.4 mg SL tablet, Place 1 tablet (0.4 mg) under the tongue every 5 (five) minutes if needed for chest pain., Disp: 30 tablet, Rfl: 12 Last Recorded Vitals Visit Vitals BP 120/66 (BP Location: Left arm, Patient Position: Sitting) Pulse 54 Ht 1.575 m (5' 2 ) Wt 81.6 kg (180 lb) SpO2 96% BMI 32.92 kg/m??? Smoking Status Never BSA 1.89 m??? Physical Examination: GENERAL: alert and oriented x3, well developed, in no acute distress. HEAD: atraumatic, normocephalic. EYES: GERA, EOMI. NECK: trachea midline, no JVD present, no carotid bruits present. CARDIAC: S1, S2 present. RRR. No murmur, rubs, or gallops. RESPIRATORY: CTAB, no increased effort of breathing, no rales, rhonchi, or wheezing. ABDOMEN: soft, nontender, nondistended. EXTREMITIES: no lower extremity edema, peripheral pulses are 2+ bilaterally. No rash/skin discoloration present. NEURO: strength/sensation equal and symmetric in bilateral upper and lower extremities. PSYCH: appropriate mood, affect, and judgement. Labs: 05/19/2024 Cholesterol 231, triglyceride 179, HDL 78, LDL 117 03/03/2024 Sodium 140, potassium 4.7, BUN 16, creatinine 1.08, glucose 93, calcium 9.1, GFR 52 Total protein 6.9, albumin 4.2, alk phos 70, AST 15, ALT 13, total bilirubin 0.4 White blood count 4.6, hemoglobin 11.8, hematocrit 35.6, platelets 240 Last Images: EKG today 11/10/2024 s (more content not included)... Normal [facility] Office Visiton 11-10-2024 Follow-up visit [id number] Sugar Oakes Kiran 1945 F Date Provider Department Center 11/10/2024 [id number] ROSADO SILVIA [place] Family History Problem Relation Age of Onset Cancer Mother Cancer Father Cancer Brother Family Status - Relation Status Age at Mother Father Brother Level of Service:62143 ND OFFICE/OUTPATIENT [facility] 60 MINUTES Reason for Visit and Comments: Hypertension [175795] Chest Pain [388020] - Sometimes gets chest pain at rest. Hyperlipidemia [182] Coronary Artery Disease [187] - Does not take daily aspirin. She does ride her stationary bike about 10 miles every day. Shortness of Breath [243855] - Gets very SOB with exertion and has to stop and take a rest at times. Palpitations [553881] - A little bit Dizziness [484210] Normal [facility] No Panel Informationon 08-27 Lavinia Herring NP 08/28/2024 11:52 AM L Inj/Asp: R knee on 08/27/2024 12:21 PM Indications: pain Details: 21 G needle, anterolateral approach Medications: 40 mg methylPREDNISolone acetate 40 MG/ML Outcome: tolerated well, no immediate complications Site cleaned with isopropyl alcohol Procedure, treatment alternatives, risks and benefits explained, specific risks discussed. Consent was given by the patient. [employer] [facility] [employer] XR Knee - right 1 or 2 Views on 08-27-2024 Imaging Result: 08/27/2024: Standing AP and LAT of the right knee demonstrates lateral joint space narrowing with valgus alignment. There is sclerosis noted to medial and lateral tibial plateau. Impression: Left knee osteoarthritis with valgus alignment. Lavinia Herring NETWORK SUPPORT TECHNICIAN-MEDICAL CODING TECHNICIAN [facility] Radiology Study observation (narrative) [facility] XR Knee - right 1 or 2 Views Ordered By: Jr. Jeffries on 08-27-2024 [facility] Work Phone: CT BRAIN WO CONTon 4 CT BRAIN WO CONT CT BRAIN WO CONT CLINICAL HISTORY: Status post fall with head trauma, pain. TECHNIQUE: Spiral CT of the brain was performed without contrast material. All CT scans at this facility use dose modulation, iterative reconstruction, and/or weight based dosing when appropriate to reduce radiation dose to as low as reasonably achievable. COMPARISONS: 08/04/2019. MRI brain 08/23/2023. FINDINGS: Isoattenuating mass along the floor of the anterior cranial fossa again seen consistent with stated diagnosis of meningioma. It is nonspecific on this noncontrast enhanced CT however. The remainder the brain appears within normal limits in morphology and attenuation. No other intracranial mass nor mass effect. No parenchymal nor extra-axial hemorrhage. Ventricular system appears within normal limits. Basal cisterns and fourth ventricle are patent. The calvarium appears intact. IMPRESSION: 1. No acute intracranial finding. 2. The known extra-axial mass anterior cranial fossa consistent with meningioma is faintly visualized on this noncontrast enhanced exam. Finalized by Dominique Alberto MD on 07/19/2024 10:32 PM Normal [facility] CT CERVICAL SPINE WO CONTon 07-19-2024 CT CERVICAL SPINE WO CONT CT CERVICAL SPINE WO CONT CLINICAL INFORMATION: Fall, evaluate for fracture TECHNIQUE: CT Cervical spine without intravenous contrast. All CT scans at this facility use dose modulation, iterative reconstruction, and/or weight based dosing when appropriate to reduce radiation dose to as low as reasonably achievable. COMPARISON: No relevant prior studies available. FINDINGS: Reversal of the cervical lordosis with severe degenerative changes and focal kyphosis at C5-C6 with bulky endplate sclerosis and spurring. Multilevel degenerative facet and uncovertebral joint arthropathy. Predental prevertebral spaces are within normal limits. Craniocervical junction is maintained. Lung apices are clear. Please note, ligamentous injury is not well evaluated on a neutral position CT. If concern for ligamentous injury consider flex-ex radiographs or MRI. IMPRESSION: * No acute fracture or subluxation of the cervical spine. * Multilevel degenerative changes most notable at C5-C6 with focal kyphosis, complete loss of disc space and bulky endplate spurring. Finalized by Shagufta Stephens MD on 07/19/2024 10:44 PM Normal [facility] XR HIP RT 2-3 VIEWS W OR WO PELVISon 07-19-2024 XR HIP RT 2-3 VIEWS W OR WO PELVIS XR HIP RT 2-3 VIEWS W OR WO PELVIS XR HIP RT 2-3 VIEWS W OR WO PELVIS: 07/19/2024 10:11 PM CLINICAL INDICATION: Pain COMPARISON: None. TECHNIQUE: AP view of the pelvis, AP and lateral views the right hip FINDINGS: Bony pelvis is intact without evidence of acute fracture or dislocation. SI joints are symmetric. The pubic symphysis is intact. Right hip joint space and bony alignment is intact without evidence of acute fracture. Partially visualized left hip is intact. IMPRESSION: No acute osseous abnormality of the pelvis or right hip. Finalized by Shagufta Stephens MD on 07/19/2024 10:42 PM Normal [facility] XR RIBS RT 3 VWS W PA CHESTo n 07-19-2024 XR RIBS RT 3 VWS W PA CHEST XR RIBS RT 3 VWS W PA CHEST XR RIBS RT 3 VWS W PA CHEST HISTORY: Acute rib pain, fall COMPARISON: Chest radiograph 02/02/2022. FINDINGS: Cardiomediastinal silhouette is within normal limits. No pneumothorax or pleural effusion. No focal airspace disease. Surgical clips project over the bilateral axillary regions. Diffuse bony demineralization compromises assessment of osseous structures. No acute rib fracture identified. IMPRESSION: * No acute cardiopulmonary process. * No acute osseous abnormality. Approved by Resident Horace Rojas DO on 07/19/2024 11:57 PM Dominique Dash MD have personally reviewed the image(s) and agree with and/or edited the report Finalized by Dominique Alberto MD on 07/19/2024 11:59 PM Normal [facility] URINALYSISon 06-10-2024 Bilirubin Ql (U) Negative Normal NEG [facility] Comment on above: Performed By: #### U A #### [facility] ([id number]) [address], [address] [place] [address] BLOOD/HGB Negative Normal NEG [facility] Comment on above: Performed By: #### U A #### [facility] ([id number]) [address], [address] [place] [address] Color (U) YELLOW Normal YELLOW [facility] Comment on above: Performed By: #### U A #### [facility] ([id number]) [address], [address] [place] [address] Glucose Ql (U) Negative Normal NEG [facility] Comment on above: Performed By: #### U A #### [facility] ([id number]) [address], [address] [place] [address] Ketones Ql (U) Negative Normal NEG [facility] Comment on above: Performed By: #### U A #### [facility] ([id number]) [address], [address] [place] [address] Leukocyte esterase Test strip Ql (U) MODERATE Abnormal NEG [facility] Comment on above: Performed By: #### U A #### [facility] ([id number]) [address], [address] [place] [address] MUCOUS PRESENT Abnormal NONE [facility] Comment on above: Performed By: #### U A #### [facility] ([id number]) [address], [address] [place] [address] Nitrite Ql (U) Negative Normal NEG [facility] Comment on above: Performed By: #### U A #### [facility] ([id number]) [address], [address] [place] [address] pH (U) 6.0 [pH] Normal 5.0-8.5 [facility] Comment on above: Performed By: #### U A #### [facility] ([id number]) [address] [place] [address] Protein Ql (U) Negative Normal NEG [facility] Comment on above: Performed By: #### U A #### [facility] ([id number]) [address], [address] [place] [address] R.B.CELLS 1 /hpf Normal 0-5 [facility] Comment on above: Performed By: #### U A #### [facility] ([id number]) [address] [place] [address] [address] [place] [address] Specific gravity (U) [Rel density] 1.009 Normal 1.003-1.035 [facility] Comment on above: Performed By: #### U A #### [facility] ([id number]) [address] [place] [address] [address] [place] [address] SQUAMOUS EPITHELIUM 1 /hpf Normal 0-5 [facility] Comment on above: Performed By: #### U A #### [facility] ([id number]) [address] [place] [address] [address] [place] [address] TURBIDITY CLEAR Normal CLEAR [facility] Comment on above: Performed By: #### U A #### [facility] ([id number]) [facility] [address] [place] [address] Urobilinogen (U) [Mass/Vol] mg/dL Normal <1.1 [facility] Comment on above: Performed By: #### U A #### [facility] ([id number]) [address] [place] [address] [address] [place] [address] W.B.CELLS 3 /hpf Normal 0-5 [facility] Comment on above: Performed By: #### U A #### [facility] ([id number]) [address] [place] [address] [address] [place] [address] URINE CULTUREon 06-10-2024 Bacteria identified Cx Nom (U) CULTURE RESULTS <10,000 ORGANISMS/ML NORMAL URO GENITAL CLAUDY Normal [facility] Comment on above: Performed By: #### 6 30-4 #### [facility] ([id number]) [address], [address] [place] [address] Lipid 1996 panelon Cholesterol [Mass/Vol] 231 mg/dL High 150-200 [facility] Comment on above: Performed By: #### 2 4331-1 #### [facility] ([id number]) [address], [address] [place] [address] Cholesterol in HDL [Mass/Vol] 78 mg/dL Normal >39 [facility] Comment on above: Result Comment: HDL <40 mg/dL - High Risk HDL > or = 40mg/dL- Desirable HDL >60 mg/dL - Negative Risk Performed By: #### 2 4331-1 #### [facility] ([id number]) [address], [address] [place] [address] Cholesterol in LDL [Mass/Vol] 117 mg/dL Normal <130 [facility] Comment on above: Result Comment: LDL <100 mg/dL - Desirable LDL >160 mg/dL - High Risk Performed By: #### 2 4331-1 #### [facility] ([id number]) [address], [address] [place] [address] Cholesterol in VLDL [Mass/Vol] 36 mg/dL High 0-30 [facility] Comment on above: Performed By: #### 2 4331-1 #### [facility] ([id number]) [address], [address] [place] [address] CHOLESTEROL:HDL 3.0 Normal 1.0-5.0 [facility] Comment on above: Performed By: #### 2 4331-1 #### [facility] ([id number]) [address], [address] [place] [address] Triglyceride [Mass/Vol] 179 mg/dL High 27-150 [facility] Comment on above: Performed By: #### 2 4331-1 #### [facility] ([id number]) [address], [address] [place] [address] CBC AND AUTO DIFFon 03-03-20 ABSOLUTE BASOPHIL 0.0 X10E9/L Normal 0.0-0.2 [facility] Comment on above: Performed By: #### C ROMEL, CMP, 84221-4 #### [facility] ([id number]) [address], [address] [place] [address] ABSOLUTE NEUTROPHIL 1.9 X10E9/L Normal 1.5-6.6 [facility] Comment on above: Performed By: #### Marciano BCA, CMP, 15129-5 #### [facility] ([id number]) [address], [address] [place] [address] Basophils/100 WBC (Bld) 0.7 % Normal [facility] Comment on above: Performed By: #### Marciano BCA, CMP, 03467-2 #### [facility] ([id number]) [address] [address] [place] [address] Eosinophils (Bld) [#/Vol] 0.2 10*3/uL Normal 0.0-0.4 [facility] Comment on above: Performed By: #### C BCA, CMP, 13069-2 #### [facility] ([id number]) [address], [address] [place] [address] Eosinophils/100 WBC (Bld) 4.2 % Normal [facility] Comment on above: Performed By: #### Marciano URENA CMP, 60671-6 #### [facility] ([id number]) [address], [address] [place] [address] Erythrocyte distribution width (RBC) [Ratio] 13.8 % Normal 11.5-15.0 [facility] Comment on above: Performed By: #### Marciano URENA CMP, 10290-6 #### [facility] ([id number]) [address], [address] [place] [address] Hematocrit (Bld) [Volume fraction] 35.6 % Normal 35-47 [facility] Comment on above: Performed By: #### Marciano URENA CMP, 23513-0 #### [facility] ([id number]) [address], [address] [place] [address] Hemoglobin (Bld) [Mass/Vol] 11.8 g/dL Normal 11.7-15.5 [facility] Comment on above: Performed By: #### Marciano URENA CMP, 42107-0 #### [facility] ([id number]) [address], [address] [place] [address] Lymphocytes (Bld) [#/Vol] 2.1 10*3/uL Normal 1.0-3.5 [facility] Comment on above: Performed By: #### Marciano URENA CMP, 89760-7 #### [facility] ([id number]) [address], [address] [place] [address] Lymphocytes/100 WBC (Bld) 45.0 % Normal [facility] Comment on above: Performed By: #### Marciano URENA CMP, 65714-6 #### [facility] ([id number]) [address], [address] [place] [address] MCH (RBC) [Entitic mass] 32.7 pg Normal 27-34 [facility] Comment on above: Performed By: #### C ROMEL, CMP, 88889-2 #### [facility] ([id number]) [address], [address] [place] [address] MCHC (RBC) [Mass/Vol] 33.2 g/dL Normal 32-36 [facility] Comment on above: Performed By: #### Marciano URENA, CMP, 89878-7 #### [facility] ([id number]) [address], [address] [place] [address] MCV (RBC) [Entitic vol] 99 fL Normal 80-100 [facility] Comment on above: Performed By: #### Marciano URENA, CMP, 09020-8 #### [facility] ([id number]) [address], [address] [place] [address] Monocytes (Bld) [#/Vol] 0.4 10*3/uL Normal 0-0.9 [facility] Comment on above: Performed By: #### Marciano URENA, CMP, 36848-2 #### [facility] ([id number]) [address], [address] [place] [address] Monocytes/100 WBC (Bld) 9.7 % Normal [facility] Comment on above: Performed By: #### Marciano BCA, CMP, 86736-7 #### [facility] ([id number]) [address], [address] [place] [address] Neutrophils/100 WBC (Bld) 40.4 % Normal [facility] Comment on above: Performed By: #### Marciano BCA, CMP, 53735-4 #### [facility] ([id number]) [address], [address] [place] [address] Platelet mean volume (Bld) [Entitic vol] 8.3 fL Normal 7-12 [facility] Comment on above: Performed By: #### Marciano BCA, CMP, 89728-1 #### [facility] ([id number]) [address], [address] [place] [address] Platelets (Bld) [#/Vol] 240 10*3/uL Normal 150-450 [facility] Comment on above: Performed By: #### C BCA, CMP, 98006-7 #### [facility] ([id number]) [address], [address] [place] [address] RBC COUNT 3.61 X10E12/L Low 3.80-5.20 [facility] Comment on above: Performed By: #### C BCA, CMP, 71185-6 #### [facility] ([id number]) [address], [address] [place] [address] WBC (Bld) [#/Vol] 4.6 10*3/uL Normal 4.0-11.0 [facility] Comment on above: Performed By: #### C BCA, CMP, 81213-6 #### [facility] ([id number]) [address], [address] [place] [address] COMPREHENSIVE METABOLIC PANE Brad 03-03-2024 Albumin [Mass/Vol] 4.2 g/dL Normal 3.2-5.3 [facility] Comment on above: Performed By: #### C BCA, CMP, 33456-9 #### [facility] ([id number]) [address], [address] [place] [address] ALP [Catalytic activity/Vol] 70 U/L Normal 39-130 [facility] Comment on above: Performed By: #### C BCA, CMP, 13472-8 #### [facility] ([id number]) [address], [address] [place] [address] ALT [Catalytic activity/Vol] 13 U/L Normal 0-31 [facility] Comment on above: Performed By: #### C BCA, CMP, 39223-0 #### [facility] ([id number]) [address], [address] [place] [address] Anion gap [Moles/Vol] 8 mmol/L Normal 5-15 [facility] Comment on above: Performed By: #### C BCA, CMP, 29069-2 #### [facility] ([id number]) [address], [address] [place] [address] AST [Catalytic activity/Vol] 15 U/L Normal 0-41 [facility] Comment on above: Performed By: #### C BCA, CMP, 77444-0 #### [facility] ([id number]) [address], [address] [place] [address] Bilirubin [Mass/Vol] 0.4 mg/dL Normal 0.3-1.2 [facility] Comment on above: Performed By: #### Marciano URENA, CMP, 95514-4 #### [facility] ([id number]) [address], [address] [place] [address] Calcium [Mass/Vol] 9.1 mg/dL Normal 8.5-10.5 [facility] Comment on above: Performed By: #### Marciano URENA, CMP, 53826-2 #### [facility] ([id number]) [address], [address] [place] [address] Chloride [Moles/Vol] 102 mmol/L Normal 98-109 [facility] Comment on above: Performed By: #### Marciano BCA, CMP, 77758-4 #### [facility] ([id number]) [address], [address] [place] [address] CO2 [Moles/Vol] 30 mmol/L Normal 22-32 [facility] Comment on above: Performed By: #### C BCA, CMP, 70575-0 #### [facility] ([id number]) [address], [address] [place] [address] Creatinine [Mass/Vol] 1.08 mg/dL High 0.40-1.00 [facility] Comment on above: Result Comment: METH OD TRACEABLE TO IDMS STANDARD Performed By: #### Marciano URENA CMP, 81501-4 #### [facility] ([id number]) [address], [address] [place] [address] GFR/1.73 sq M.predicted among non-blacks MDRD (S/P/Bld) [Vol rate/Area] 52 mL/min/{1.73_m2} Low >59 [facility] Comment on above: Result Comment: Reported eGFR is based on the CKD-EPI 2020 equation that does not use a race coefficient. Performed By: #### Marciano URENA CMP, 70363-2 #### [facility] ([id number]) [address], [address] [place] [address] Glucose [Mass/Vol] 93 mg/dL Normal 65-99 [facility] Comment on above: Performed By: #### Marciano URENA CMP, 82487-6 #### [facility] ([id number]) [address], [address] [place] [address] Potassium [Moles/Vol] 4.7 mmol/L Normal 3.5-5.0 [facility] Comment on above: Performed By: #### Marciano URENA CMP, 22032-2 #### [facility] ([id number]) [address], [address] [place] [address] Protein [Mass/Vol] 6.9 g/dL Normal 6.0-8.0 [facility] Comment on above: Performed By: #### Marciano URENA CMP, 34682-8 #### [facility] ([id number]) [address], [address] [place] [address] Sodium [Moles/Vol] 140 mmol/L Normal 134-146 [facility] Comment on above: Performed By: #### Marciano URENA CMP, 55633-8 #### [facility] ([id number]) [address], [address] [place] [address] Urea nitrogen [Mass/Vol] 16 mg/dL Normal 5-27 [facility] Comment on above: Performed By: #### Marciano URENA, ALDO, 26191-3 #### [facility] ([id number]) [address], [address] [place] [address] Lipid 1996 panelon 4 Cholesterol [Mass/Vol] 299 mg/dL High 150-200 [facility] Comment on above: Performed By: #### Marciano URENA, ALDO, 26099-6 #### [facility] ([id number]) [address], [address] [place] [address] Cholesterol in HDL [Mass/Vol] 52 mg/dL Normal >39 [facility] Comment on above: Result Comment: HDL <40 mg/dL - High Risk HDL > or = 40mg/dL- Desirable HDL >60 mg/dL - Negative Risk Performed By: #### Marciano URENA, ALDO, 34586-1 #### [facility] ([id number]) [address], [address] [place] [address] Cholesterol in LDL [Mass/Vol] 169 mg/dL High <130 [facility] Comment on above: Result Comment: LDL <100 mg/dL - Desirable LDL >160 mg/dL - High Risk Performed By: #### Marciano URENA, CMP, 28544-3 #### [facility] ([id number]) [address], [address] [place] [address] Cholesterol in VLDL [Mass/Vol] 78 mg/dL High 0-30 [facility] Comment on above: Performed By: #### C BCA, CMP, 48722-4 #### [facility] ([id number]) [address], [address] [place] [address] CHOLESTEROL:HDL 5.8 High 1.0-5.0 [facility] Comment on above: Performed By: #### C BCA, CMP, 45660-9 #### [facility] ([id number]) [address] [place] [address] Triglyceride [Mass/Vol] 390 mg/dL High 27-150 [facility] Comment on above: Performed By: #### C BCA, CMP, 77991-1 #### [facility] ([id number]) [address], [address] [place] [address] MR LUMBAR SPINE WO CONTon MR LUMBAR SPINE WO CONT MR LUMBAR SPINE WO CONT HISTORY: A 78-year-old female with the history of the tingling and numbness in the right hip and leg. Neuropathy. TECHNIQUE: Multiplanar and multisequence MRI examination of the lumbar spine is performed without intravenous contrast administration. COMPARISON: Comparison is made with prior MRI examination of the lumbar spine of 05/04/2015 and plain film radiographs of the lumbar spine of 10/16/2022. FINDINGS: Vertebral heights are normal. There are degenerative changes in the lower thoracic and lumbar spine with severe changes at L4-L5. There is no evidence of an acute bony pathology. No spondylolisthesis is identified. There is a heterogeneous marrow signal from degenerative arthritis. No acute bony pathology is identified. There is a benign hemangioma in the L5 vertebral body. Both sacroiliac joints are intact. No significant paravertebral soft tissue abnormality seen. At L1-L2, there is a central disc bulge with indentation on the ventral aspect of the thecal sac but neural foramina are patent. At L2-L3, there is no evidence of disc herniation or narrowing of the neural foramina. There is a mild degree of central canal narrowing. At L3-L4, there is a broad-based disc bulging or herniation with facet arthropathy causing severe degree of spinal stenosis and narrowing of the neural foramina. At L4-L5, there is a severe disc degenerative disease. Facet arthropathy with thickening of the ligamentum flavum causing moderate degree of spinal stenosis and narrowing of the neural foramina. At L5-S1, there is no evidence of disc herniation, spinal stenosis or narrowing of the neural foramina. Facet arthropathy seen bilaterally. Conus is seen at the level of L1. No intrathecal signal abnormality seen. 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 Facet arthropathy seen at multiple levels. Associated disc abnormality seen from L1 to L5. Various degrees of spinal stenosis and narrowing of the neural foramina has described above. * No evidence of spondylolisthesis. Finalized by Mykel Guzman MD on 11/17/2023 10:56 AM Normal [facility] XR ANKLE ABHISHEK MIN 3 VIEWSon 0 02-01-2022 XR ANKLE ABHISHEK MIN 3 VIEWS EXAMINATION: XR ANKLE ABHISHEK MIN 3 VIEWS, XR FOOT ABHISHEK MIN 3 VIEWS HISTORY: Bilateral ankle joint pain COMPARISON: 11/02/2020 FINDINGS: RIGHT FINDINGS: BONES: Stable flattening of the plantar arch. Subtalar fusion with 2 screws. Remote osteotomy medial cuneiform with placement of a wedge spacer. Remote shave osteotomy medial head of the first metatarsal. Stable degenerative changes with joint space narrowing and marginal osteophyte formation. Moderate enthesopathic spurring of the calcaneus at the Achilles tendon insertion SOFT TISSUES: Negative. No visible soft tissue swelling. OTHER: Negative. LEFT FINDINGS: BONES: No acute fracture or dislocation. Moderate diffuse degenerative changes with joint space narrowing and marginal osteophyte formation, most significant at the first metatarsal-phalangeal joint. Moderate hallux valgus. Mild enthesopathic spurring of the calcaneus at the Achilles tendon insertion SOFT TISSUES: Negative. No visible soft tissue swelling. OTHER: Negative. IMPRESSION: RIGHT CONCLUSION: Stable postsurgical changes with no mechanical failure LEFT CONCLUSION: Stable moderate degenerative changes with flattening of the plantar arch Electronically authenticated by: RAMSES GONGORA Date: 2022-02-01 11:16 Normal [facility] CT ANKLE RT WO CONon 022 CT ANKLE RT WO CON EXAMINATION: CT ANKL E RT WO CON HISTORY: Idiopathic osteoarthritis , continued pain after right ankle surgery COMPARISON: XR bilateral ankle and foot 11/02/2021 TECHNIQUE: Multi-planar CT images were created without IV contrast. Dose reduction techniques were achieved by using automated exposure control and/or adjustment of mA and/or kV according to patient size and/or use of iterative reconstruction technique. FINDINGS: BONES: Mechanical fusion of the talocalcaneal joint via anterior and posterior lag screws; no evidence of hardware fracture, loosening, or extension beyond the bone. No bone fracture or dislocation. Osteotomy and wedge placement within the medial cuneiform. 6 mm subchondral cyst abutting the dorsal medial surface of the talar dome small degenerative osteophyte along the lateral articular surface of the tibial plafond. Separate, corticated ossification distal to medial malleolus favoring sequela of remote injury. SOFT TISSUES: No significant soft tissue swelling. No radiopaque foreign body. EFFUSION: None visible. OTHER: Negative. IMPRESSION: 1. Stable surgical changes without evidence of hardware failure, change in alignment, or acute bone abnormality. 2. Subchondral cyst abutting the medial articular margin of the talar dome without overlying cortical disruption. Electronically authenticated by: ONRBERTO IVAN Date: 2021-12-19 11:38 Normal [facility] XR ANKLE ABHISHEK MIN 3 VIEWSon 1 01-03-2021 XR ANKLE ABHISHEK MIN 3 VIEWS EXAMINATION: XR ANKLE ABHISHEK MIN 3 VIEWS, XR FOOT ABHISHEK MIN 3 VIEWS HISTORY: Bilateral ankle joint pain , lateral pain and burning sensation COMPARISON: XR right ankle and foot 09/29/2020 FINDINGS: RIGHT FINDINGS: BONES: Primary mechanical fusion of the anterior and posterior talocalcaneal joints without evidence of the lag screw fracture or loosening. Prior osteotomy and wedge placement within the medial cuneiform. Mild flattening of plantar arch. Suspect prior bunionectomy. SOFT TISSUES: No visible soft tissue swelling. OTHER: Negative. LEFT FINDINGS: BONES: Mild-moderate bunion formation. Mild flattening of the plantar arch with mild midfoot degenerative changes. No fracture or dislocation. SOFT TISSUES: No visible soft tissue swelling. OTHER: Negative. IMPRESSION: RIGHT CONCLUSION: 1. Stable surgical changes without evidence of hardware failure. 2. Mild chronic changes. LEFT CONCLUSION: 1. Mild bunion formation and degenerative changes. No acute abnormality. Electronically authenticated by: NORBERTO IVAN Date: 2021-11-02 16:25 Normal [facility] Cardiovascular Lab Reporton 05-30-2019 Cardiovascular Lab Report [facility] Patient Name: Margy Oakse [facility] MR #: [id number] Physician: Pepe Barraza of [facility] Chavez Medicine Service Date: 05/29/2019 Division of Birthdate: 1945 Cardiology Room #: CC Adult Cardiovascular Services [facility] [address] [place], [place] [address] Cardiovascular Laboratory Report INDICATION: The patient is a 74-year-old woman, who was evaluated recently in Cardiology Clinic because of worsening symptoms of shortness of breath and chest pain. She previously had these symptoms and underwent a stress test in November of 2018 that was negative. She was maximized on medical therapy and brought today for cardiac catheterization given continued symptoms on maximal medical therapy. PROCEDURE: 1. Right heart catheterization. 2. Bilateral selective coronary angiography. 3. Limited right femoral angiography. 4. Deployment of vascular access closure device. METHOD: The procedure was explained to the patient with risks and benefits. She signed informed consent. She was brought to lab support technician in a fasting state. The right groin area was prepped and draped in usual fashion. Using micropuncture technique, the right common femoral artery was accessed. The inner cannula was advanced. Limited femoral angiography was performed followed by upsizing to a 6-Georgian x 11 cm sheath. Access was obtained using the same technique in the right common femoral vein and a 6-Georgian x 11 cm sheath was placed. A 6-Georgian Pena catheter was used for right heart catheterization with measurement of pressures and calculation of cardiac output using the estimated Anila method. Pena catheter was removed. Bilateral selective coronary angiography was then performed using 6-Georgian JL4 and JR4 diagnostic catheters. Catheters were removed. Procedure was concluded. The right femoral arteriotomy was managed with a 6-Georgian Angio-Seal device with good hemostasis. The access sheath in the femoral vein was removed and manual compression applied for hemostasis. She tolerated the procedure well. She will be observed in the cardiovascular recovery area for 3 hours and then discharged to home. TOTAL FLUORO TIME: 4.04 minutes. TOTAL AIR KERMA: 369 mGy. TOTAL CONTRAST VOLUME: 40 mL. HEMODYNAMICS: RA 6, RV 38/5, 10. PA 44/12, mean 26. Pulmonary capillary wedge pressure 13. AO 134/57, mean 90. Cardiac output 5.92, cardiac index 3.12. PA sat 67%. AO sat 96%. CORONARY ANGIOGRAPHY: 1. This is a right dominant circulation. 2. Left main: This arises from the left coronary cusp. It bifurcates into left anterior descending and circumflex vessels. The left main is free of disease. 3. Left anterior descending. This has a 20% mid segment narrowing, but otherwise free of obstructive lesions. 4. Circumflex vessel: This is a moderate-sized and nondominant vessel. It has mild luminal irregularities. 5. Right coronary artery. This arises from the right coronary cusp. It is a large and dominant vessel. It has 50% proximal segment, concentric, narrowing, but no obstructive lesions. Limited right femoral angiography. This showed access to be in the right common femoral artery with no obstructive lesions noted in the femoral artery or its proximal branches. SUMMARY OF FINDINGS: 1. Coronary artery disease with 50% stenosis in the proximal RCA and 20% mid LAD stenosis and minimal disease in the circumflex vessel. 2. Minimally elevated filling pressures. 3. Mild pulmonary hypertension. 4. Preserved cardiac output and cardiac index. RECOMMENDATIONS: 1. At this time, the patient's medical therapy will be intensified to include Imdur 30 mg daily. 2. Follow up in Cardiology Clinic. Electronically Signed by: Pepe Chavez M.D. 06/09/2019 12:00 A Pepe Chavez M.D. Date Dict: 05/29/2019/03:14 P/Pepe Chavez M.D. Date Trans: 05/29/2019 10:55 P/sanaz [id number] cc: Lucia Esteban M.D. [address] [facility] [address] [facility] Otheron 01-18-1999 CONVERTED ELECTRONIC SIGNATURE JAYE ZABALA [employer]TER (Electronic signature on file) Final Signed Out: 01/18/1999 16:25 [facility] CONVERTED FINAL DIAGNOSIS SPECIMEN ADEQUACY SATISFACTORY FOR CYTOLOGIC EVALUATION BUT LIMITED BY: NO ENDOCERVICAL COMPONENTS. GENERAL CATEGORIZATION WITHIN NORMAL LIMITS HORMONAL EVALUATION HORMONAL PATTERN COMPATIBLE WITH AGE AND HISTORY [facility] CONVERTED ORDERING PROVIDER Ordering Provider: SHEA REYES [facility] CONVERTED PAP DISCLAIMER The Pap test serves as a screening tool for early detection of cervical cancer. The Pap test does not represent a final diagnostic test for cervical cancer. Furthermore, the Pap test was not designed to screen for other malignancies (endometrial, ovarian cancer, etc....). False negatives and false positives have occurred. If clinically indicated, further patient evaluation is recommended. [facility] Vital Signs Date Time Vital Sign Value Performing Clinician Faci lity 02-19-2025 10:51-0400 Body height 152.4 cm María Thapa [employer] Phone: [employer] 02-19-2025 10:51-0400 Body mass index (BMI) [Ratio] 34.98 kg/m2 María Thapa [employer] Phone: [employer] 02-19-2025 10:51-0400 Body weight 81.24 kg Mar[facility] 02-19-2025 10:51-0400 Diastolic blood pressure 50 mm[Hg] María [facility] [employer] Phone[facility] 02-19-2025 10:51-0400 Heart rate 60 /min María Thapa DO BPT Phone: [facility] 02-19-2025 10:51-0400 SaO2% (BldA) [Mass fraction] 98 % María Thapa DO [facility] 02-19-2025 10:51-0400 Systolic blood pressure 132 mm[Hg] María Thapa [employer] Phone: [facility] 12-22-2024 09:09-0500 Body height 157.5 cm [facility] 12-22-2024 09:09-0500 Body mass index (BMI) [Ratio] 32.92 kg/m2 [facility] [address] [facility] 12-22-2024 09:09-0500 Body weight 81.65 kg [facility] 12-11-2024 12:08-0500 Body height 157.5 cm María Thapa DO [facility] 12-11-2024 12:08-0500 Body mass index (BMI) [Ratio] 33 kg/m2 María Tahpa DO Work Phone: [facility] [employer] 12-11-2024 12:08-0500 Body weight 81.83 kg María Thapa DO Work Phone: [facility] [employer] 12-11-2024 12:08-0500 Diastolic blood pressure 49 mm[Hg] María Thapa DO Work Phone: [facility] [employer] 12-11-2024 12:08-0500 Heart rate 53 /min María Thapa DO Work Phone: [facility] [employer] 12-11-2024 12:08-0500 SaO2% (BldA) [Mass fraction] 99 % María Thapa DO Work Phone: [facility] [employer] 12-11-2024 12:08-0500 Systolic blood pressure 123 mm[Hg] María Thapa DO Work Phone: [facility] [employer] 01-11-2024 09:17-0500 Body height 157.5 cm Vicenta Fernandes MD [facility] 01-11-2024 09:17-0500 Body mass index (BMI) [Ratio] 32.19 kg/m2 Vicenta Fernandes MD Work Phone: [facility] [employer] 01-11-2024 09:17-0500 Body weight 79.83 kg Vicenta Fernandes MD Work Phone: [facility] [employer] [facility] Encounters Encounter Date Encounter Type Care Provider Facility Start: 02-20-2025 End: 02-20-2025 Orders Only María Thapa DO Work Phone: [facility] Comment on above: Moderate persistent asthma without complication (Primary Dx) Start: 02-19-2025 End: 02-19-2025 Office outpatient visit 25 minutes María Thapa DO Work Phone: [facility] Comment on above: Pulmonary nodules/le sions, multiple (Primary Dx); Dyspnea on exertion; Moderate persistent asthma without complication Start: 02-19-2025 End: 02-19-2025 ambulatory MARÍA THAPA [facility] Start: 02-12-2025 End: 02-16-2025 Telephone encounter [facility] Start: 02-06-2025 End: 02-06-2025 Bamboo flowsheet Brannon Carranza PA Work Phone: [facility] Start: 02-06-2025 End: 02-06-2025 Bamboo flowsheet Brannon Carranza PA Work Phone: [facility] Start: 02-06-2025 End: 02-06-2025 Office outpatient visit 15 minutes Brannon DAVILA Work Phone: [facility] Comment on above: Acute pain of right knee (Primary Dx); Arthritis of right knee Start: 02-06-2025 End: 02-06-2025 ambulatory BRANNON CARRANZA Not Available Start: 01-21-2025 End: 01-21-2025 ambulatory [facility] Start: 12-25-2024 End: 12-25-2024 Evaluation and management of inpatient ISIDRA SIMMONS [facility] Start: 12-22-2024 End: 12-22-2024 Evaluation and management of inpatient LUCIA ESTEBAN [facility] Start: 12-22-2024 End: 12-22-2024 Admission to [facility] Phone Call Provider 3 [facility] Start: 12-16-2024 End: 12-16-2024 Telephone encounter Franca Regalado RN Work Phone: [facility] Start: 12-12-2024 [facility] Start: 12-12-2024 End: 12-12-2024 ambulatory MARÍA M [facility] Start: 12-11-2024 End: 12-16-2024 Patient encounter status Renae Melissa KILPATRICK [facility] Start: 12-11-2024 End: 12-11-2024 Refill María Thapa DO Work Phone: [facility] Start: 12-11-2024 End: 12-16-2024 Telephone encounter Renae Melissa [facility] Start: 12-11-2024 End: 12-11-2024 ambulatory [facility] Start: 12-11-2024 End: 12-11-2024 Office outpatient new 60 minutes María Thapa DO Work Phone: [facility] Comment on above: Pulmonary nodules/le sions, multiple (Primary Dx); Pulmonary nodule Start: 12-09-2024 End: 12-09-2024 ambulatory [facility] Start: 12-04-2024 ambulatory [facility] Start: 12-02-2024 ambulatory [facility] Start: 11-13-2024 End: 11-13-2024 ambulatory [facility] Start: 11-13-2024 Encounter for other preprocedural examination [facility] Start: 11-10-2024 End: 11-10-2024 ambulatory [facility] Start: 10-24-2024 End: 10-24-2024 ambulatory [facility] Start: 08-27-2024 End: 08-27-2024 Bamboo flowsheet Lavinia Herring LANGUAGE TUTOR Work Phone: [facility] Start: 08-27-2024 End: 08-27-2024 Bamboo flowsheet Lavinia Herring LANGUAGE TUTOR Work Phone: [facility] Start: 08-27-2024 End: 08-27-2024 ambulatory LAVINIA HERRING Not Available Start: 08-27-2024 End: 08-27-2024 Office outpatient visit 25 minutes Lavinia Herring LANGUAGE TUTOR Work Phone: [facility] Comment on above: Primary osteoarthrit is of right knee (Primary Dx); Right knee pain, unspecified chronicity Start: 07-19-2024 End: 07-20-2024 Emergency department patient visit [facility] Start: 07-19-2024 End: 07-20-2024 Emergency department patient visit [facility] Start: 06-10-2024 End: 06-10-2024 ambulatory [facility] Start: 05-19-2024 End: 05-19-2024 ambulatory [facility] Start: 04-16-2024 End: 04-16-2024 ambulatory LAVINIA HERRING Not Available Start: 03-03-2024 End: 03-03-2024 [facility] Start: 01-11-2024 End: 01-11-2024 Office outpatient visit 15 minutes Vicenta Fernandes MD Work Phone: [facility] Comment on above: Neuropathy (Primary Dx) Start: 11-16-2023 End: 11-16-2023 ambulatory VICENTA Mckeon [facility] Start: 11-09-2023 Telephone encounter [facility] Comment on above: MRI Start: 05-31-2022 End: 06-01-[address] LUCIA ESTEBAN Facility:[facility] Start: 05-02-2022 End: 05-03-[address] BERNABE PRATHER Facility:[facility] Start: 04-18-2022 End: 04-19-[address] BERNABE PRATHER Facility:[facility] Start: 04-04-2022 End: 04-05-2022 ambulatory CJ FOX Facility:[facility] Start: 03-28-2022 End: 03-29-[address] BERNABE PRATHER Facility:[facility] Start: 03-07-2022 End: 04-14-[address] BERNABE PRATHER Facility:[facility] Start: 02-28-2022 End: 03-01-[address] BERNABE PRATHER Facility:[facility] Start: 02-14-2022 End: 02-15-[address] LUCIA ESTEBAN Facility:[facility] Start: 02-01-2022 End: 02-02-[address] LUCIA ESTEBAN Facility:[facility] Start: 12-19-2021 End: 12-20-[address] LUCIA ESTEBAN Facility:[facility] Start: 11-02-2021 End: 11-03-[address] LUCIA ESTEBAN Facility:[facility] Start: 05-29-2019 End: 05-30-2019 Patient encounter procedure PROVIDER UNKNOWN Facility:[facility] Start: 01-03-1999 End: 01-03-1999 Patient encounter procedure Conversion [facility] Start: 01-03-1999 Results Only Conversion [facility] Procedures Date Procedure Procedure Detail Performing Clinician Start: 02-19-2025 Follow-up visit Follow-up MARÍA THAPA Start: 02-06-2025 Arthrocentesis aspir &/inj major jt/bursa w/o us Brannon DAVILA Work Phone: Start: 08-27-2024 Arthrocentesis aspir &/inj major jt/bursa w/o us Lavinia Herring LANGUAGE TUTOR Work Phone: Start: 08-27-2024 Radiologic examinati on knee 1/2 views Lavinia Herring LANGUAGE TUTOR Work Phone: Start: 01-03-1999 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 Conversion [facility] Aguilar Plan of Treatment Date Care Activity Detail Author Start: 02-19-2026 Tobacco Screening Tobacco Screening [facility] Start: 12-25-2025 Tobacco Screening Tobacco Screening [facility] Start: 12-11-2025 Tobacco Screening Tobacco Screening [facility] Start: 07-13-2025 Influenza vaccination Influenza Vacc ine [facility] Start: 05-21-2025 End: 05-21-2025 Patient encounter procedure 05/21/2025 2:30 PM EDT Office Visit [facility] [address] [place] [address] María Thapa, DO [address] [address] [facility] Start: 02-19-2025 End: 02-19-2025 Patient encounter procedure 02/19/2025 10:45 AM EDT Office Visit [facility] [address] [place] [phone] María Thapa, DO [address] [address] [facility] Start: 02-06-2025 End: 02-06-2025 Patient encounter procedure 02/06/2025 11:30 AM EDT Office Visit [facility] [address] [place] [phone] Brannon Carranza, PA [address] [address] Acute pain of right knee (Primary Dx) [facility] Comment on above: Acute pain of right knee (Primary Dx) Start: 01-06-2025 End: 01-06-2025 Admission to same day surgery center 01/06/2025 1:00 PM EST - 01/06/2025 2:[address] [facility] [address] [place] [phone] María Thapa, DO [address] [address] ION ROBOTIC BRONCOSCOPY [[id number] (CPT )] [facility] Comment on above: ION ROBOTIC BRONCOSC OPY [[id number] (CPT )] Start: 01-06-2025 End: 01-06-2025 Brnchsc incl fluor gdnce dx w/cell washg spx [facility] Start: 01-06-2025 Subsequent hospital visit by physician 01/06/2025 1:00 PM EST Hospital Encounter [facility] [address] [facility] [place] [phone] María Thapa DO [address] [facility] [address] [place] [id number] [facility] Start: 12-25-2024 End: 12-25-2024 Admission to same day surgery center 12/25/2024 1:15 PM EST - 12/25/2024 3:[address] [facility] [address] [facility] [place] [phone] Isidra Saeed MD [address] [id number] ION ROBOTIC BRONCOSCOPY [[id number] (CPT )] [facility] Comment on above: ION ROBOTIC BRONCOSC OPY [[id number] (CPT )] Start: 12-25-2024 End: [facility] w/cell washg spx [facility] Start: 12-25-2024 Subsequent hospital visit by physician 12/25/2024 1:15 PM EST Hospital Encounter [facility] [address] [facility] [place] [phone] Isidra Saeed MD [id number] [facility] Start: 12-22-2024 End: 12-22-2024 Admission to establishment 12/22/2024 8:30 AM EST Support Visit [facility] On [address] [address] [facility] Start: 12-12-2024 End: 12-12-2024 Patient encounter procedure 12/12/2024 9:30 AM EST Appointment [facility] [address] [place] [address] María Thapa, DO [address] [address] [facility] - [facility] Start: 12-11-2024 End: 12-11-2025 CT Chest limited WO contrast CT Ion Chest without contrast Imaging STAT Pulmonary nodules/lesions, multiple Expected: 12/11/2024, Expires: 12/11/2025 [facility] Work Phone: Comment on above: Expected: 12/11/2024 , Expires: 12/11/2025 Start: 10-26-2024 Adult BMI Screening Adult BMI Screen ing [facility] Start: 10-26-2024 Tobacco Screening Tobacco Screening [facility] Start: 07-13-2024 COVID-19 Vaccine ( season) COVID-19 Vaccine ( season) [facility] Start: 07-13-2024 Influenza vaccination Influenza Vacc ine (#1) [facility] Start: 11-09-2023 End: 11-09-2024 MR Lumbar spine WO contrast MR lumbar spine without contrast Imaging Routine Neuropathy Expected: 11/09/2023, Expires: 11/09/2024 [facility] Work Phone: Comment on above: Expected: 11/09/2023 , Expires: 11/09/2024 Start: 07-13-2023 COVID-19 Vaccine ( season) COVID-19 Vaccine ( season) [facility] Start: 07-13-2023 Influenza vaccination Influenza Vacc ine [facility] Start: 07-25-2022 ambulatory Ambulatory Facility:[facility] 1 Start: 07-13-2020 Influenza vaccination INFLUENZA (#1) [facility] Start: 10-09-2018 Pneumococcal Vaccine : 65+ Years (2 of 2 - PCV) Pneumococcal Vaccine: 65+ Years (2 of 2 - PCV) [facility] Start: 07-19-2016 Administration of varicella zoster vaccine Zoster (Shingles) Vaccine (2 of 3) [facility] Start: 01-18-2009 ADVANCE DIRECTIVE DISCUSSION ADVANCE DIRECTIVE DISCUSSION [facility] Start: 01-18-2009 BONE DENSITY BONE DENSITY [facility] Start: 01-18-2009 Fall Risk Screening Fall Risk Screen ing [facility] Start: 01-18-2009 PNEUMOVAX AGE 65 AND OVER WITH 5YR LOOKBACK (#1) PNEUMOVAX AGE 65 AND OVER WITH 5YR LOOKBACK (#1) [facility] Start: 01-18-1994 SHINGRIX VACCINE (1 of 2) SHINGRIX VACCINE (1 of 2) [facility] Start: 01-18-1994 Tuberculosis screening COLOREC ROMI CANCER SCREENING,SEE MODIFIER [facility] Start: 01-18-1989 DIABETES SCREEN DIABETES SCREEN [facility] Start: 01-18-1989 LIPID SCREEN LIPID SCREEN [facility] Start: 01-18-1963 DTaP,Tdap and Td Vaccines (1 - Tdap) DTaP,Tdap and Td Vaccines (1 - Tdap) [facility] Start: 01-18-1963 Urine microalbumin profile DTAP,TDAP,TD (1 - Tdap) [facility] Start: 01-18-1962 Adult BMI Follow Up Plan Adult BMI Follow Up Plan [facility] Start: 01-18-1962 HEPATITIS C SCREENING HEPATITIS C SC REENING [facility] Start: 1956 Depression Screening Depression Scre ening [facility] Start: 1945 Medicare Annual Well ness Visit Medicare Annual Wellness Visit [facility] End: 02-19-2026 Eosinophil count Eosinophil count Lab Routine Moderate persistent asthma without complication 1 Occurrences starting 02/19/2025 until 02/19/2026 [facility] Comment on above: 1 Occurrences starti ng 02/19/2025 until 02/19/2026 End: 02-19-2026 Respiratory allergy panel Respiratory allergy panel Lab Routine Moderate persistent asthma without complication 1 Occurrences starting 02/19/2025 until 02/19/2026 [facility]: Comment on above: 1 Occurrences starti ng 02/19/2025 until 02/19/2026 Immunizations Immunization Date Immunization Notes Care Provider Chicho felix 10-22-2024 influenza virus vaccine, unspecified formulation [facility] influenza virus vaccine, unspecified formulation Estrella Brown UNDERLINER [facility] 05-24-2016 zoster vaccine, unspecified formulation Estrelladianna Brown [facility] Payers Date Payer Category Payer Unknown [id number] 2010 Managed Care Other (unspecified) [facility] [id number] 2010 Private Health Insurance [id number] .[id number] .[id number] 2009 Medicare [id number]. 1.13.693.2 .[id number] 1959 Medicare [id number] 1959 Unknown [id number] 1944 Unknown [id number] 2.16.840.1.118815.3.579.2 .647 1944 Unknown [id number] 2.16.840.1.141725.3.579.2 .593 1944 Unknown [id number] 2.16.840.1.330990.3.579.2 .593 1944 Unknown [id number] 2.16.840.1.934724.3.579.2 .593 1944 Unknown [id number] 2.16.840.1.073436.3.579.2 .593 1944 Unknown [id number] 2.16.840.1.992297.3.579.2 .593 1944 Unknown [id number] 2.16.840.1.050365.3.579.2 .593 1944 Unknown [id number] 2.16.840.1.345070.3.579.2 .593 1944 Unknown [id number] 2.16.840.1.475519.3.579.2 .593 1944 Unknown [id number] 2.16.840.1.584773.3.579.2 .593 1944 Unknown [id number] 2.16.840.1.342621.3.579.2 .593 1944 Unknown [id number] 2.16840.1.087349.3.579.2 .593 1944 Unknown [id number] 2.840.1.238712.3.579.2 .593 1944 Unknown [id number] 2.840.1.641109.3.579.2 .128 1944 Unknown [id number] 2.840.1.441667.3.579.2 .128 1944 Unknown [id number] 2.840.1.865132.3.579.2 .1286 1944 Unknown [id number] 2.840.1.324290.3.579.2 .128 1944 Unknown [id number] 2.16.840.1.428423.3.579.2 .128 1944 Unknown [id number] 2.16840.1.682631.3.579.2 .128 1944 Unknown [id number] 2.16.840.1.641690.3.579.2 .128 1944 Unknown [id number] 2.16.840.1.264567.3.579.2 .1286 1944 Unknown [id number] 2.16.840.1.917829.3.579.2 .128 1944 Unknown [id number] 2.16.840.1.372605.3.579.2 .128 1944 Unknown [id number] 2.16.840.1.162755.3.579.2 .128 1944 Unknown [id number] 2.16.840.1.614319.3.579.2 .128 1944 Unknown [id number] 2.16.840.1.824238.3.579.2 .128 1944 Unknown [id number] 2.16840.1.683787.3.579.2 .1259 1944 Unknown [id number] 2.840.1.820191.3.579.2 .125 1944 Unknown [id number] 2.840.1.743989.3.579.2 .1259 1944 Unknown [id number] 2.840.1.342745.3.579.2 .125 1944 Unknown [id number] 2.16840.1.732587.3.579.2 .1286 1944 Unknown [id number] 2.840.1.265020.3.579.2 .128 1944 Unknown [id number] 2.16840.1.163240.3.579.2 .128 1944 Unknown [id number] 2.16840.1.151082.3.579.2 .128 1944 Unknown [id number] 2.16840.1.729722.3.579.2 .1286 1944 Unknown [id number] 2.16840.1.206057.3.579.2 .1286 Social History Date Type Detail Facility Tobacco smoking stat us NHIS Unknown if ever smoked [facility] Sex Assigned At Not on file [facility] Start: 09-19-2023 End: 04-16-2024 Tobacco smoking status NHIS Never smoked tobacco [facility] Start: 09-19-2023 End: 04-16-2024 Tobacco use and exposure Smokeless tobacco non-user [facility] Start: 04-16-2024 End: 02-19-2025 Alcoholic beverage intake Current drinker of alcohol (finding) [facility] Start: 12-23-2020 End: 04-16-2024 History of Social function [facility] Start: 12-23-2020 End: 04-16-2024 Tobacco use panel [facility] Start: 1945 Sex assigned at Female [facility] Start: 08-01-2020 Gender identity Identifies as female gender (finding) [facility] Start: 04-05-2024 Sexual orientation Heterosexual (finding) [facility] Adolescent depressio n screening assessment 0 [facility] Start: 06-17-2015 Sex Female (finding) [facility] Medical Equipment Procedure Code Equipment Code Equipment Origin al Text Equipment Identifier Dates Cement Bn [place] s Radpq 40g Rpl [id number] - Sn/A - [id number] Start: 01-15-2018 Cmpt Fem D Kn Lt Lpsflx Gndr Rpl [id number] - Sn/A - [id number] Start: 01-15-2018 Ins Artc 3-4 C-D 10mm Kn Fx - Sn/A - [id number]/A, [id number] FDA Start: 01-15-2018 Cmpt Ptlr 32mm N xgn Alply Rpl [id number] - Sn/A - [id number]/SN/A, [id number] FDA Start: 01-15-2018 Plt Tib [id number] Nxgn Kn Cmnt Rpl [id number] + [id number] - Sn/A - [id number] Start: 01-15-2018 Clinical Notes 02-14-2022 to 02-20-2025 Telephone Encounter - RATNA Frank - 02/20/2025 10:21 AM EDTTelephone Encounter - RATNA Frank - 02/20/2025 10:21 AM EDTSdestiny Thapa DO - 02/20/2025 7:39 AM EDTPatient Instructions Note Date & Type Note Facility 02-20-2025 Miscellaneous Notes Home nebulizer and tubing kit [place] with supportive [place] [facility] documented in this encounter [facility] 02-20-2025 Telephone encounter Note Home nebulizer and tubing kit orders with supportive documentation faxed to [facility]. [facility] 02-20-2025 History of Present illness Narrative Notification from pharmacy received that advair diskus not covered and Breo preferred. Rx for Breo sent to pharmacy documented in this encounter [facility] 02-19-2025 History of Present illness Narrative [facility] Progress Note Patient - Margy Oakes Age - 80 y.o. - 1945 ASSESSMENT 1. Chronic cough and dyspnea on exertion felt possibly related to underlying bronchospasm, cough variant asthma 2. 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 Never smoker PLAN PFT data reviewed. Grossly normal. However given patient's clinical symptoms highly suspicious for bronchospasm and diagnosis such as asthma especially given clinical improvement with prednisone Rx given for maintenance inhaler with Advair however this was not covered on her insurance and was switched to Breo. Rx given for albuterol rescue HFA in addition to home nebulizer and albuterol aerosol solution. Advised nebulizer treatment with albuterol aerosols 1st thing in a.m. followed by maintenance inhaler with Breo. Discussed role in indication for rescue albuterol inhaler and albuterol aerosols. Also discussed pretreatment prior to known exertional or triggering activities All questions answered Return to clinic in 3 months or earlier if needed SUBJECTIVE Mrs. Oakes presents for follow-up of her shortness of breath. She was initially seen as a new patient visit for new pulmonary nodules and evaluation for bronchoscopy with navigation. This was performed on 12/25. Of note there was extensive mucus plugging that was removed from the patient. She had 4R biopsied in addition to right middle lobe pulmonary nodule. Lymph node was negative however right middle lobe was positive for metastatic carcinoma consistent with breast origin. She has been following closely with her oncologist since. She continues however to get the shortness of breath. She has noticed that this was worse most particularly within the last 6 months. She recently had a trip to [facility] and had to stop frequently to rest while walking. She does wheeze intermittently in the morning. She does have daily coughing bouts. This is mostly dry. Most recently she was placed on prednisone by her oncologist in regards to her chemo regimen and she did not know incidentally that this helped reduce her cough slightly. She is not winded at rest and does not wake up out of sleep winded or coughing. No previous pulmonary diagnosis such as asthma or COPD VITALS BP 132/50 Pulse 60 Ht 152.4 cm (5') Wt 81.2 kg (179 lb 1.6 oz) SpO2 98% BMI 34.98 kg/m Exam General: Alert, oriented, no acute distress, nontoxic, well nourished HEENT: Moist mucosal membranes, no oral lesions or oral thrush, trachea midline Chest: Clear to auscultation bilaterally without any crackles, wheezes, rhonchi. Normal AP diameter. CV: Regular rate regular rhythm Extremities: No edema, erythema, distal cyanosis, clubbing Integumentary: Warm and dry. No rash or lesion Neuro: No lateralizing deficits. No tremors Meds Medications Reviewed. Dr. María Thapa DO. [facility] Office: [phone] documented in this encounter [employer] 02-19-2025 Instructions Mraía Thapa DO - 02/19/2025 10:45 AM EDT Start taking Advair 1 puff twice per day. Keep next to bathroom sink and rinse and spit with water after Albuterol rescue puff for breakthrough symptoms such as cough, wheeze. Can also use before known exercise such as shopping or going for a walk as a pretreatment Albuterol solution for nebulizer machine also for as needed use but many times people feel better doing a treatment 1st thing in am prior to use of Advair. Start with 1/2 vial and see how this is tolerated prior to increasing to a full vial of medicine. documented in this encounter [facility] 02-12-2025 Miscellaneous Notes Manager Money received message from requesting that we add patient over lunch on 02/19/2025, as Dr. Vazquez would like patient to see SE. Manager Money called patient and left voicemail asking for patient to return our call at her earliest convenience to get her scheduled. Manager Money received message from requesting that we add patient over lunch on 02/19/2025, as Dr. Vazquez would like patient to see SE. Manager Money called patient and left voicemail asking for patient to return our call at her earliest convenience to get her scheduled. Patient called office back and scheduled an appointment with SE on 02/19/2025 at 10:45am in [place]. documented in this encounter [facility] 02-12-2025 Telephone encounter Note Manager Money received message from requesting that we add patient over lunch on 02/19/2025, as Dr. Vazquez would like patient to see SE. Manager Money called patient and left voicemail asking for patient to return our call at her earliest convenience to get her scheduled. [facility] 02-12-2025 Telephone encounter Note Manager Money received message from SE requesting that we add patient over lunch on 02/19/2025, as Dr. Vazquez would like patient to see SE. Manager Money called patient and left voicemail asking for patient to return our call at her earliest convenience to get her scheduled. [facility] 02-12-2025 Telephone encounter Note Patient called office back and scheduled an appointment with SE on 02/19/2025 at 10:45am in [place]. [facility] 02-06-2025 History of Present illness Narrative Associated Order(s): L Inj/Asp: R knee Post-Procedure Diagnose(s): Arthritis of right knee Images from the original note were not included. HISTORY OF PRESENT ILLNESS: EST PT Margy Oakes is an 80 y.o. @ female. (EST PT, LAST VISIT WITH [facility]) RT KNEE PAIN, 3 YRS (2021)- NOTES GRADUAL INCREASE WITH PAIN- PT IS LEAVING FOR [facility] ON SUNDAY- REQUESTING CORTISONE INJ PT RECENTLY DX WITH BREAST CA FOR THE 3RD TIME; CURRENTLY ON IBRANCE XRAY EPIC 08/27/24 XRAY [facility] 07/09/23 DEPO INJECTION 04/16/24, 08/27/24 PHYSICAL THERAPY @ PT LINK- WITHIN THE LAST YEAR PAIN LATERAL KNEE- PAIN CAN BE GLOBAL-MINIMAL SWELLING- SOME INSTABILITY- DIFFICULTY WITH STAIRS- +IBUPROFEN ALLERGIES: Allergies Allergen Reactions Pregabalin Dizziness, Headache, Other and Shortness of breath Other Reaction(s): depression/ weight gain, Other (See Comments) Depression Penicillins Headache Other Reaction(s): n/v, Other (See Comments) Flu like symptoms Promethazine Anxiety, Dizziness, Hallucinations, Itching, Other and Palpitations Other Reaction(s): aggitation, Other (See Comments) Agitation HOME MEDICATIONS: Current Outpatient Medications Medication Instructions acetaminophen (Tylenol Extra Strength) 500 MG tablet Every 6 hours amitriptyline (Elavil) 10 MG tablet diphenhydrAMINE-acetaminophen (Tylenol PM Extra Strength) 25-500 MG per tablet Every 24 hours DULoxetine (CYMBALTA) 60 mg, Oral, Nightly gabapentin (Neurontin) 300 MG capsule 1 capsule, Every 12 hours isosorbide mononitrate ER (Imdur) 30 MG 24 hr tablet Every 24 hours lisinopril 10 MG tablet Every 24 hours metoprolol succinate XL (Toprol-XL) 25 MG 24 hr tablet metoprolol succinate ER 25 mg tablet,extended release 24 hr Multiple Vitamin (Multivitamin Adult) tablet as directed Orally omeprazole (PRILOSEC) 20 mg, Oral, Daily RT palbociclib (IBRANCE) 125 mg, Oral, Daily with breakfast, Swallow whole. PHYSICAL EXAM: Knee Musculoskeletal Exam Gait Antalgic: right Gait additional comments: Wearing ASO to right ankle Inspection Leg length disparity: no discrepancy Right Erythema: none Effusion: mild Edema: none Ecchymosis: none Deformity: none Alignment: valgus Palpation Right Right knee palpation is unremarkable. Increased warmth: none Masses: none Crepitus: patellofemoral and lateral Tenderness: present Lateral joint line: moderate Patella: mild Range of Motion Right Right knee range of motion is normal and full. Active extension: 0 Passive extension: 0 Active flexion: 120 Passive flexion: 120 Strength Right Right knee strength is normal. Extension: 5/5. Extension is affected by pain. Flexion: 5/5. Flexion is affected by pain. Instability Right Instability signs: none - stable Anterior drawer: normal Neurovascular Right Right knee neurovascular exam is normal. Pulses - PT: normal Posterior tibial: 2+ Capillary refill: warm and well-perfused Special Signs Right Right knee special signs are normal. Patellar apprehension: none General Constitutional: appears stated age Labored breathing: no Psychiatric: normal mood and affect Neurological: alert Skin: intact Lymphadenopathy: none Vitals: There is no height or weight on file to calculate BMI. Tobacco Use: Low Risk (02/06/2025) Patient History Smoking Tobacco Use: Never Smokeless Tobacco Use: Never Passive Exposure: Not on file Alcohol Use: Not on file IMAGING: L Inj/Asp: R knee on 02/06/2025 1:20 PM Indications: pain Details: 22 G needle, anterolateral approach Medications: 40 mg methylPREDNISolone acetate 40 MG/ML Outcome: tolerated well, no immediate complications E UTILIZING ASEPTIC TECHNIQUE PT GIVEN INJECTION IN RIGHT KNEE, NEUROVASC INTACT S/P INJ, TOLERATED WELL Procedure, treatment alternatives, risks and benefits explained, specific risks discussed. Consent was given by the patient. Orders Placed This Encounter Procedures L Inj/Asp This order was created via procedure documentation ASSESSMENT: ICD-10-CM 1. Acute pain of right knee M25.561 2. Arthritis of right knee M17.11 Assessment & Plan 1. Right knee pain. She reports pain in the lateral knee, exacerbated by weightbearing and activity. Surgical and nonsurgical treatment options were discussed. She prefers conservative measures. An injection was administered today to alleviate symptoms before her upcoming trip to [place]. She will contact the clinic on an as-needed basis if her symptoms worsen for reevaluation upon her return. There is no calf tenderness, and she has previously found relief from injections. If there is no improvement, consider charcoal unloader bracing. PROCEDURE An injection was administered today to alleviate right knee pain. Questions answered in laymen terms at the bedside. The diagnosis, home exercise plan and any ongoing restrictions/ recommendations reviewed. If unable to be reached in office, I recommend evaluation at nearest Emergency Room if any symptoms worsened or new symptoms develop for requiring urgent evaluation. documented in this encounter [facility] 01-21-2025 Note [facility] Note Reason for cardiology visit: follow-up HPI: 01/21/2025 Patient is here today for follow-up visit after cardiac catheterization which showed mild coronary artery disease and normal LVEDP. Patient states that her chest pain is much better and she has rare occasions of sharp quick pains. She is still experiencing significant dyspnea on exertion although she rides a stationary bicycle every day. She denies orthopnea or paroxysmal nocturnal dyspnea or dizziness or palpitations or legs edema. She never been a smoker 11/10/2024 Margy Oakse is a 80 y.o. female history of mild coronary artery disease per cardiac catheterization 2019, hypertension, hyperlipidemia and breast cancer Reports that for few months she has been having chest pain she describes it as left-sided tightness mostly with exertion but sometimes it occurs at rest. It resolves about 5 minutes after she rests when it occurs with exertion. Also she reports shortness of breath with climbing stairs or extreme exertion. She reports that she rides stationary bike and recently she had to stop due to shortness of breath and little chest tightness. She denies orthopnea or paroxysmal nocturnal dyspnea or dizziness or palpitations or legs edema or discomfort on exertion. She reports gaining about 5 pounds over the last year or so. She denies snoring or being sleepy or tired during the daytime She never smoked. She drinks alcohol socially. She denies illicit drugs ROS: All systems were reviewed and they were negative except for the positive findings noted above in the history Past Medical History She has a past medical history of Cancer (CMS/HCC), Coronary artery disease, Hyperlipidemia, and Hypertension. Surgical History She has a past surgical history that includes Cardiac catheterization; Appendectomy; Breast biopsy; Tonsillectomy; Total knee arthroplasty; Foot surgery; and Mastectomy. Social History She reports that she has never smoked. She has never used smokeless tobacco. She reports current alcohol use. She reports that she does not use drugs. Family History Family History Problem Relation Name Age of Onset Cancer Mother Cancer Father Cancer Brother Allergies Pregabalin, Penicillins, and Promethazine Medications Current Outpatient Medications: amitriptyline (Elavil) 10 mg tablet, Take 20 mg by mouth at bedtime., Disp: , Rfl: aspirin 81 mg EC tablet, Take 1 tablet (81 mg) by mouth in the morning., Disp: 30 tablet, Rfl: 11 atorvastatin (Lipitor) 20 mg tablet, Take 20 mg by mouth at bedtime., Disp: , Rfl: cholecalciferol, vitamin D3, 50 mcg (2,000 unit) capsule, Take 2,000 Units by mouth in the morning., Disp: , Rfl: DULoxetine (Cymbalta) [address] capsule, Take 60 mg by mouth in the morning., Disp: , Rfl: gabapentin (Neurontin) 300 mg capsule, Take 900 mg by mouth at bedtime., Disp: , Rfl: Ibrance 125 mg chemo tablet, TAKE ONE TABLET BY MOUTH ONCE DAILY on days 1-21 every 28 days (3 weeks on, 1 week off). MAY BE TAKEN WITH OR WITHOUT FOOD. DO NOT CRUSH OR CHEW TABLETS., Disp: , Rfl: isosorbide mononitrate ER (Imdur) 60 mg 24 hr tablet, Take 1 tablet (60 mg) by mouth in the morning., Disp: 30 tablet, Rfl: 11 letrozole (Femara) 2.5 mg chemo tablet, Take 2.5 mg by mouth in the morning, Disp: , Rfl: lisinopril 10 mg tablet, Take 10 mg by mouth in the morning., Disp: , Rfl: metoprolol succinate XL (Toprol-XL) 25 mg 24 hr tablet, Take 25 mg by mouth in the morning., Disp: , Rfl: nitroglycerin (Nitrostat) 0.4 mg SL tablet, Place 1 tablet (0.4 mg) under the tongue every 5 (five) minutes if needed for chest pain., Disp: 30 tablet, Rfl: 12 omeprazole (PriLOSEC) [address] capsule, Take 20 mg by mouth in the morning., Disp: , Rfl: predniSONE (Deltasone) 5 mg tablet, Take 5 mg by mouth in the morning., Disp: , Rfl: Last Recorded Vitals Visit Vitals BP 160/71 (BP Location: Left arm, Patient Position: Sitting) Pulse 53 Ht 1.575 m (5' 2 ) Wt 82.1 kg (181 lb) SpO2 97% BMI 33.11 kg/m??? Smoking Status Never BSA 1.9 m??? Physical Examination: GENERAL: alert and oriented x3, well developed, in no acute distress. HEAD: atraumatic, normocephalic. EYES: GERA, EOMI. NECK: trachea midline, no JVD present, no carotid bruits present. CARDIAC: S1, S2 present. RRR. No murmur, rubs, or gallops. RESPIRATORY: CTAB, no increased effort of breathing, no rales, rhonchi, or wheezing. ABDOMEN: soft, nontender, nondistended. EXTREMITIES: no lower extremity edema, peripheral pulses are 2+ bilaterally. No rash/skin discoloration present. NEURO: strength/sensation equal and symmetric in bilateral upper and lower extremities. PSYCH: appropriate mood, affect, and judgement. Labs: 12/12/2024 White blood count 5, hemoglobin 11.6, hematocrit 33.9, platelets 244 Sodium 140, potassium 4.6, BUN 16, creatinine 1 point is 2, GFR 47 11/13/2024 Cholesterol 215, (more content not included)... [facility] 12-22-2024 Instructions Formatting of th is note might be different from the original. Your surgery/procedure is scheduled at [facility] on 12/25/2024 at 1315 Arrival Time 1115 [facility] Address: [address] [place] [address] Park in P1 Parking lot located on [facility]. Report to the Entrance B. Check in at the information desk the surgery. The waiting room located on the second floor. If you have any questions prior to surgery, please call Pre-Admission Clinic at [phone] between 7:30 am and 4:30 pm Sunday through Sunday. If you have questions the morning of surgery, please call the Pre-op Department at [phone]. Notify your SURGEON if you develop any illness such as a cold, cough, fever, sore throat, vomiting or are hospitalized between now and your surgery. Medication Instructions (Do not stop your medications without consulting the prescribing physician). Take the following medications the morning of surgery with a sip of water: Gabapentin, Omeprazole, Metoprolol, Prednisone Diabetic or Weight loss medications: HOLD na LAST DOSE na Take inhalers as prescribed the morning of surgery. Due to the risk associated with these medications. If these medications are not held per instruction below, your surgery is at an increased risk for cancellation. SGLT2 Medications- Hold 3 days prior to surgery: Jardiance, Empagliflozin, Farxiga, Dapagliflozin, Invokana, Canagliflozin, Trijardy, Synjardy GLP-1 Medications (Injection or Pill)- If taken daily hold day of surgery. If taken weekly, hold 1 week prior to surgery: Adlyxin, Byetta, Bydureon, Ozempic, Rybelsus,Trulicity, Victoza, Wegovy, Lixisenatide, Exenatide, Semaglutide, Dulaglutide, Liraglutide GIP/GLP-1(Injection or Pill)- If taken daily hold day of surgery. If taken weekly, hold 1 week prior to surgery: Luke . Blood thinners: Please contact your prescribing physician regarding a stop/hold date for these medications. Medications such as Coumadin, Heparin, Aspirin, Plavix, Eliquis, Pradaxa Diabetics: If you take insulin, contact your prescribing doctor for instructions on how to manage this the night before and the morning of surgery. Non-steriodal Anti-Inflammatory Drugs (NSAIDS)- Hold 3 days prior to surgery unless otherwise directed by your surgeon. Vitamins/Herbal Products: You may continue to take your prescribed vitamins such as potassium, iron, vitamin B, vitamin C, or multivitamin unless specifically instructed by your surgeon to hold. STOP taking all herbal products/teas one week prior to your surgery. Marijuana: Stop marijuana 72 hours prior to surgery, stop CBD oil 48 hours prior to surgery. If you have been given bowel prep instructions by your surgeon, please call the surgeon's office with any questions about these instructions. What do I do the day of Surgery? Age 2 through adult - Stop all solids by midnight, You may have clear liquids up to 2 hours before surgery, unless otherwise instructed by your surgeon. Clear liquids are: water, sports drinks such as Gatorade or G2, or apple juice. You may NOT have: tube feedings, dairy products, alcoholic beverages, orange juice, or any liquids with solids or pulp in it. If applicable, shower again with CHG soap the morning of your surgery. If you received a green plastic bracelet, bring it with you the day of surgery and your nurse will put it on you. In order to help prevent infection post-operatively, you may be asked to use a CHG mouthwash when you arrive to the Pre-op area. Your nurse will provide instruction the morning of. What do I need to do to prepare for surgery? If you will be going home the same day as your surgery, arrange for an adult over [address] Riding in a bus or taxi by yourself is not permitted. You should not smoke or drink alcohol 24 hours before your surgery. Alcohol thins the blood and may cause bleeding problems during surgery. Smoking increases the risk of breathing problems after surgery. Do not use lotions, creams, powders, perfume, make up, cologne or after-shaves day of surgery. Remove ALL jewelry including wedding rings, body piercings (including dermal piercings ,hair extensions that contain metal, nail anguillan, make-up, and contact lens. You may brush your teeth the morning of surgery, but do not swallow the water. Wear your dentures and partial plates to the hospital (no adhesive). Shower the night the before. If applicable, use the CHG (chlorhexidine gluconate) soap or wipes What should I bring to the hospital? If you received a green plastic bracelet, bring it with you the day of surgery and your nurse will put it on you. Eyeglass or contact lens case If you will be spending the night, please bring personal care items and leave them in the car until you are taken to your room after surgery. Leave ALL valuables at home. If any of these instructions conflict with those you received from the surgeon, please seek clarification from your surgeon's office. DEEP BREATHING EXERCISES This exercise helps promote good air exchange and helps to prevent pneumonia after surgery. Breathe in slowly and deeply through the nose. Hold your breath for a few seconds and then exhale slowly through the mouth. Repeat this three times and then cough.Coughing helps to clear your lungs. If you have had a surgery with an incision into your abdomen or chest, press gently against your incision with a pillow or a folded blanket when you cough. Please be aware - it may not be philip to cough following some types of surgeries involving the eyes, ears, sinuses and throat. Always follow your doctor's instructions. LEG EXERCISE These exercises help promote good circulation and help to prevent blood clots after surgery. Point your toes to the ceiling and then point them to the wall. Do this slowly about 15-20 times. You may also move your feet in circles. Do the exercise that is most comfortable for you. If you have had surgery involving your shoulder or arm, we recommend you move your fingers. PRACTICING We ask that you begin practicing these exercises before your surgery. After surgery try to do both exercises at least every 2 hours during the day and early evening. SURGICAL SITE INFECTION PREVENTION What is a Surgical Site Infection? Infection can happen to the area of the body where surgery is done. This is called a surgical site infection (SSI). A SSI does not happen very often. Can SSIs be treated? Antibiotics are used to treat SSI. Some patients may need another surgery to treat the infection. The doctor will discuss treatment options with you. What are some of the things that hospitals are doing to prevent SSIs? Soap and water or alcohol hand rub are used before and after caring for each patient. Special soap is used to clean surgery workers hands and arms just before the surgery. Masks, gowns, gloves and hair covers are worn during the surgery to keep the area clean. Hair in the surgery area may be removed with clippers (not razors). A special soap that kills germs is used to clean the skin at the surgery site. Antibiotics may be given before the surgery starts. What can you do to prevent SSIs? Before surgery: You may be asked to shower or bathe with a special soap that kills germs the night before and the day of surgery. Use the soap as you were told. If you smoke, stop or cut down. Ask your doctor about ways to quit. Do not shave near where you will have surgery. Shaving can irritate the skin and make it easier to get and infection. After surgery: Be sure that the doctors and nurses clean their hands before and after touching you. Be sure your family and friends clean their hands before and after visiting you. Do not be afraid to remind them. * Care for your wound at home as told by your doctor or nurse * Call your doctor right away if you have fever, redness, increased pain, or drainage at the surgery site. Further questions? Contact the doctor, nurse or the Infection Prevention and Control department if you have any questions. PATIENT RIGHTS AND RESPONSIBILITIES As a patient at [facility], you have the right to: Receive medical care and be informed of who is taking care of you Be treated with dignity and respect Have a family member/traveling representative of choice and your physician notified of your admission Receive information and actively participate in decisions about your care and treatment Refuse care, treatment and services Decide who may provide your support and speak for you Access gnosticist and spiritual services Participate in ethical issues and questions about your care Receive private and confidential care Have appropriate assessment and management of your pain Know guest visitation restrictions or limitations Have an advance directive Access protective services Consent or refuse to participate in research studies or production or recordings, films or other images Have resolution of your complaints Receive information of hospital charges and payment methods Patient/patient traveling representative responsibilities are to: Provide information about health status to facilitate care, treatment and services Follow the treatment, plan, keep appointments and speak up when you do not understand the plan Respect the rights of other patients and healthcare personnel Follow organizational rules and regulations that support quality care and a safe environment Fulfill financial obligations as promptly as possible PATIENT RIGHTS AND RESPONSIBILITIES As a patient at [facility], you have the right to: Receive medical care and be informed of who is taking care of you Be treated with dignity and respect Have a family member/traveling representative of choice and your physician notified of your admission Receive information and actively participate in decisions about your care and treatment Refuse care, treatment and services Decide who may provide your support and speak for you Access gnosticist and spiritual services Participate in ethical issues and questions about your care Receive private and confidential care Have appropriate assessment and management of your pain Know guest visitation restrictions or limitations Have an advance directive Access protective services Consent or refuse to participate in research studies or production or recordings, films or other images Have resolution of your complaints Receive information of hospital charges and payment methods Patient/patient traveling representative responsibilities are to: Provide information about health status to facilitate care, treatment and services Follow the treatment, plan, keep appointments and speak up when you do not understand the plan Respect the rights of other patients and healthcare personnel Follow organizational rules and regulations that support quality care and a safe environment Fulfill financial obligations as promptly as possible Surgical Site Infection Prevention What is a Surgical Site Infection? Infection can happen to the area of the body where surgery is done. This is called a surgical site infection (SSI). A SSI does not happen very often. Can SSIs be treated? Antibiotics are used to treat SSI. Some patients may need another surgery to treat the infection. The doctor will discuss treatment options with you. What are some of the things that hospitals are doing to prevent SSIs? Soap and water or alcohol hand rub are used before and after caring for each patient. Special soap is used to clean surgery workers hands and arms just before the surgery. Masks, gowns, gloves and hair covers are worn during the surgery to keep the area clean. Hair in the surgery area may be removed with clippers (not razors). A special soap that kills germs is used to clean the skin at the surgery site. Antibiotics may be given before the surgery starts. What can you do to prevent SSIs? Before surgery: You may be asked to shower or bathe with a special soap that kills germs the night before and the day of surgery. Use the soap as you were told. If you smoke, stop or cut down. Ask your doctor about ways to quit. Do not shave near where you will have surgery. Shaving can irritate the skin and make it easier to get and infection. After surgery: Be sure that the doctors and nurses clean their hands before and after touching you. Be sure your family and friends clean their hands before and after visiting you. Do not be afraid to remind them. * Care for your wound at home as told by your doctor or nurse * Call your doctor right away if you have fever, redness, increased pain, or drainage at the surgery site. Further questions? Contact the doctor, nurse or the Infection Prevention and Control department if you have any questions. [facility] 12-22-2024 Miscellaneous Notes Your surgery/procedure is scheduled at [facility] on 12/25/2024 at 1315 Arrival Time 1115 [facility] Address: [address] [place] [address] Park in [address] Parking lot located on [facility]. Report to the Entrance B. Check in at the information desk the surgery. The waiting room located on the second floor. If you have any questions prior to surgery, please call Pre-Admission Clinic at [phone] between 7:30 am and 4:30 pm Sunday through Sunday. If you have questions the morning of surgery, please call the Pre-op Department at [phone]. Notify your SURGEON if you develop any illness such as a cold, cough, fever, sore throat, vomiting or are hospitalized between now and your surgery. Medication Instructions (Do not stop your medications without consulting the prescribing physician). Take the following medications the morning of surgery with a sip of water: Gabapentin, Omeprazole, Metoprolol, Prednisone Diabetic or Weight loss medications: HOLD na LAST DOSE na Take inhalers as prescribed the morning of surgery. Due to the risk associated with these medications. If these medications are not held per instruction below, your surgery is at an increased risk for cancellation. SGLT2 Medications- Hold 3 days prior to surgery: Jardiance, Empagliflozin, Farxiga, Dapagliflozin, Invokana, Canagliflozin, Trijardy, Synjardy GLP-1 Medications (Injection or Pill)- If taken daily hold day of surgery. If taken weekly, hold 1 week prior to surgery: Adlyxin, Byetta, Bydureon, Ozempic, Rybelsus,Trulicity, Victoza, Wegovy, Lixisenatide, Exenatide, Semaglutide, Dulaglutide, Liraglutide GIP/GLP-1(Injection or Pill)- If taken daily hold day of surgery. If taken weekly, hold 1 week prior to surgery: Mounjaro . Blood thinners: Please contact your prescribing physician regarding a stop/hold date for these medications. Medications such as Coumadin, Heparin, Aspirin, Plavix, Eliquis, Pradaxa Diabetics: If you take insulin, contact your prescribing doctor for instructions on how to manage this the night before and the morning of surgery. Non-steriodal Anti-Inflammatory Drugs (NSAIDS)- Hold 3 days prior to surgery unless otherwise directed by your surgeon. Vitamins/Herbal Products: You may continue to take your prescribed vitamins such as potassium, iron, vitamin B, vitamin C, or multivitamin unless specifically instructed by your surgeon to hold. STOP taking all herbal products/teas one week prior to your surgery. Marijuana: Stop marijuana 72 hours prior to surgery, stop CBD oil 48 hours prior to surgery. If you have been given bowel prep instructions by your surgeon, please call the surgeon's office with any questions about these instructions. What do I do the day of Surgery? Age 2 through adult - Stop all solids by midnight, You may have clear liquids up to 2 hours before surgery, unless otherwise instructed by your surgeon. Clear liquids are: water, sports drinks such as Gatorade or G2, or apple juice. You may NOT have: tube feedings, dairy products, alcoholic beverages, orange juice, or any liquids with solids or pulp in it. If applicable, shower again with CHG soap the morning of your surgery. If you received a green plastic bracelet, bring it with you the day of surgery and your nurse will put it on you. In order to help prevent infection post-operatively, you may be asked to use a CHG mouthwash when you arrive to the Pre-op area. Your nurse will provide instruction the morning of. What do I need to do to prepare for surgery? If you will be going home the same day as your surgery, arrange for an adult over [address] Riding in a bus or taxi by yourself is not permitted. You should not smoke or drink alcohol 24 hours before your surgery. Alcohol thins the blood and may cause bleeding problems during surgery. Smoking increases the risk of breathing problems after surgery. Do not use lotions, creams, powders, perfume, make up, cologne or after-shaves day of surgery. Remove ALL jewelry including wedding rings, body piercings (including dermal piercings ,hair extensions that contain metal, nail anguillan, make-up, and contact lens. You may brush your teeth the morning of surgery, but do not swallow the water. Wear your dentures and partial plates to the hospital (no adhesive). Shower the night the before. If applicable, use the CHG (chlorhexidine gluconate) soap or wipes What should I bring to the hospital? If you received a green plastic bracelet, bring it with you the day of surgery and your nurse will put it on you. Eyeglass or contact lens case If you will be spending the night, please bring personal care items and leave them in the car until you are taken to your room after surgery. Leave ALL valuables at home. If any of these instructions conflict with those you received from the surgeon, please seek clarification from your surgeon's office. DEEP BREATHING EXERCISES This exercise helps promote good air exchange and helps to prevent pneumonia after surgery. Breathe in slowly and deeply through the nose. Hold your breath for a few seconds and then exhale slowly through the mouth. Repeat this three times and then cough.Coughing helps to clear your lungs. If you have had a surgery with an incision into your abdomen or chest, press gently against your incision with a pillow or a folded blanket when you cough. Please be aware - it may not be philip to cough following some types of surgeries involving the eyes, ears, sinuses and throat. Always follow your doctor's instructions. LEG EXERCISE These exercises help promote good circulation and help to prevent blood clots after surgery. Point your toes to the ceiling and then point them to the wall. Do this slowly about 15-20 times. You may also move your feet in circles. Do the exercise that is most comfortable for you. If you have had surgery involving your shoulder or arm, we recommend you move your fingers. PRACTICING We ask that you begin practicing these exercises before your surgery. After surgery try to do both exercises at least every 2 hours during the day and early evening. SURGICAL SITE INFECTION PREVENTION What is a Surgical Site Infection? Infection can happen to the area of the body where surgery is done. This is called a surgical site infection (SSI). A SSI does not happen very often. Can SSIs be treated? Antibiotics are used to treat SSI. Some patients may need another surgery to treat the infection. The doctor will discuss treatment options with you. What are some of the things that hospitals are doing to prevent SSIs? Soap and water or alcohol hand rub are used before and after caring for each patient. Special soap is used to clean surgery workers hands and arms just before the surgery. Masks, gowns, gloves and hair covers are worn during the surgery to keep the area clean. Hair in the surgery area may be removed with clippers (not razors). A special soap that kills germs is used to clean the skin at the surgery site. Antibiotics may be given before the surgery starts. What can you do to prevent SSIs? Before surgery: You may be asked to shower or bathe with a special soap that kills germs the night before and the day of surgery. Use the soap as you were told. If you smoke, stop or cut down. Ask your doctor about ways to quit. Do not shave near where you will have surgery. Shaving can irritate the skin and make it easier to get and infection. After surgery: Be sure that the doctors and nurses clean their hands before and after touching you. Be sure your family and friends clean their hands before and after visiting you. Do not be afraid to remind them. * Care for your wound at home as told by your doctor or nurse * Call your doctor right away if you have fever, redness, increased pain, or drainage at the surgery site. Further questions? Contact the doctor, nurse or the Infection Prevention and Control department if you have any questions. PATIENT RIGHTS AND RESPONSIBILITIES As a patient at [facility], you have the right to: Receive medical care and be informed of who is taking care of you Be treated with dignity and respect Have a family member/traveling representative of choice and your physician notified of your admission Receive information and actively participate in decisions about your care and treatment Refuse care, treatment and services Decide who may provide your support and speak for you Access gnosticist and spiritual services Participate in ethical issues and questions about your care Receive private and confidential care Have appropriate assessment and management of your pain Know guest visitation restrictions or limitations Have an advance directive Access protective services Consent or refuse to participate in research studies or production or recordings, films or other images Have resolution of your complaints Receive information of hospital charges and payment methods Patient/patient traveling representative responsibilities are to: Provide information about health status to facilitate care, treatment and services Follow the treatment, plan, keep appointments and speak up when you do not understand the plan Respect the rights of other patients and healthcare personnel Follow organizational rules and regulations that support quality care and a safe environment Fulfill financial obligations as promptly as possible PATIENT RIGHTS AND RESPONSIBILITIES As a patient at [facility], you have the right to: Receive medical care and be informed of who is taking care of you Be treated with dignity and respect Have a family member/traveling representative of choice and your physician notified of your admission Receive information and actively participate in decisions about your care and treatment Refuse care, treatment and services Decide who may provide your support and speak for you Access gnosticist and spiritual services Participate in ethical issues and questions about your care Receive private and confidential care Have appropriate assessment and management of your pain Know guest visitation restrictions or limitations Have an advance directive Access protective services Consent or refuse to participate in research studies or production or recordings, films or other images Have resolution of your complaints Receive information of hospital charges and payment methods Patient/patient traveling representative responsibilities are to: Provide information about health status to facilitate care, treatment and services Follow the treatment, plan, keep appointments and speak up when you do not understand the plan Respect the rights of other patients and healthcare personnel Follow organizational rules and regulations that support quality care and a safe environment Fulfill financial obligations as promptly as possible Surgical Site Infection Prevention What is a Surgical Site Infection? Infection can happen to the area of the body where surgery is done. This is called a surgical site infection (SSI). A SSI does not happen very often. Can SSIs be treated? Antibiotics are used to treat SSI. Some patients may need another surgery to treat the infection. The doctor will discuss treatment options with you. What are some of the things that hospitals are doing to prevent SSIs? Soap and water or alcohol hand rub are used before and after caring for each patient. Special soap is used to clean surgery workers hands and arms just before the surgery. Masks, gowns, gloves and hair covers are worn during the surgery to keep the area clean. Hair in the surgery area may be removed with clippers (not razors). A special soap that kills germs is used to clean the skin at the surgery site. Antibiotics may be given before the surgery starts. What can you do to prevent SSIs? Before surgery: You may be asked to shower or bathe with a special soap that kills germs the night before and the day of surgery. Use the soap as you were told. If you smoke, stop or cut down. Ask your doctor about ways to quit. Do not shave near where you will have surgery. Shaving can irritate the skin and make it easier to get and infection. After surgery: Be sure that the doctors and nurses clean their hands before and after touching you. Be sure your family and friends clean their hands before and after visiting you. Do not be afraid to remind them. * Care for your wound at home as told by your doctor or nurse * Call your doctor right away if you have fever, redness, increased pain, or drainage at the surgery site. Further questions? Contact the doctor, nurse or the Infection Prevention and Control department if you have any questions. documented in this encounter [facility] 12-16-2024 Miscellaneous Notes Patient currently scheduled for 01/06 for ION/ EBUS. Dr Esparza is able to accommodate earlier on 12/25 and John esparza afternoon slot available which is his preferred. Lindsay can you reach out to patient to see if she is agreeable to change in date in order to get procedure done sooner? SE PET avid lesion along pericardium but oncologist is okay with alternative lesion biopsy as felt all lesions related. Suspicious for breast . Call to patient. Patient identified self on vm. Left message regarding call and requested call back. Spot being held on 12/25/24 at [address] Thapa. The patient would like to have done at offered time. She is currently at [facility] and requests our office to call her later with the details. Spoke with patient. Instructed to hold aspirin on 12/20/24 for 5 days. Nothing to eat or drink after midnight. Arrive to [facility] by 1115 am for a procedure times of 115 pm. documented in this encounter [employer] 12-16-2024 Telephone encounter Note Patient currently scheduled for 01/06 for ION/ EBUS. Dr Esparza is able to accommodate earlier on 12/25 and John esparza afternoon slot available which is his preferred. Lindsay can you reach out to patient to see if she is agreeable to change in date in order to get procedure done sooner? SE PET avid lesion along pericardium but oncologist is okay with alternative lesion biopsy as felt all lesions related. Suspicious for breast . Call to patient. Patient identified self on vm. Left message regarding call and requested call back. Spot being held on 12/25/24 at 115 pm. [employer] Work Phone: 12-16-2024 Telephone encounter Note Notification from Dr Thapa. The patient would like to have done at offered time. She is currently at [facility] and requests our office to call her later with the details. [employer] 12-16-2024 Telephone encounter Note Spoke with patient. Instructed to hold aspirin on 12/20/24 for 5 days. Nothing to eat or drink after midnight. Arrive to [facility] by 1115 am for a procedure times of 115 pm. [facility] 12-11-2024 Miscellaneous Notes Manager Money attempted to contact patient. No answer. Left message for patient to contact office regarding procedure date and time. Left office phone number for reference. Patient will need to be informed of the following: Ion Navigational procedure w/EBUS under general anesthesia (Dx: Lung nodule) is scheduled for Dec at 1:00 pm. Patient to arrive to [facility] at 11:00 am. Patient to report to Entrance B and go to information desk and they will direct patient to admitting or the surgery waiting room. Patient will need to complete labs on Sunday CT Ion already scheduled for 12-12-24 Patient to have pre-admission phone call on 12-22-24 at 9:00 am To prepare for the procedure, the patient must do the following: Nothing to eat or drink eight hours prior to procedure. Nothing after 5:00 am on day of procedure. No aspirin or aspirin containing products seven days prior to procedure. Patient to take last dose on 12-29-24 and starting 12-30-24, no aspirin until after procedure. Tylenol only. Make arrangements for a sulky driver to bring you to and from the hospital on the day of the procedure Bring your ID, current medication list and insurance cards to the hospital Call our office if you become ill such as a cold, cough, fever, sore throat or vomiting on the day before or day of the math and physics instructor to update Dr Thapa Case #[id number] Patient returned call. Manager Money informed patient of the following: Ion Navigational procedure w/EBUS under general anesthesia (Dx: Lung nodule) is scheduled for Dec at 1:00 pm. Patient to arrive to [facility] at 11:00 am. Patient to report to Entrance B and go to information desk and they will direct patient to admitting or the surgery waiting room. Patient will need to complete labs on Sunday CT Ion already scheduled for 12-12-24 Patient to have pre-admission phone call on 12-22-24 at 9:00 am To prepare for the procedure, the patient must do the following: Nothing to eat or drink eight hours prior to procedure. Nothing after 5:00 am on day of procedure. No aspirin or aspirin containing products seven days prior to procedure. Patient to take last dose on 12-29-24 and starting 12-30-24, no aspirin until after procedure. Tylenol only. Make arrangements for a sulky driver to bring you to and from the hospital on the day of the procedure Bring your ID, current medication list and insurance cards to the hospital Call our office if you become ill such as a cold, cough, fever, sore throat or vomiting on the day before or day of the procedure Patient agreeable to above information and verbalized understanding Manager Money to update Dr Thapa Case #[id number] Patient completed labs today but does not stop aspirin until 12-30-24. Do you want her to repeat them? No that is fine Procedure moved up to 12/25/24 at 115 pm with TSA [facility] Telephone encounter Note Manager Money attempted to contact patient. No answer. Left message for patient to contact office regarding procedure date and time. Left office phone number for reference. Patient will need to be informed of the following: Ion Navigational procedure w/EBUS under general anesthesia (Dx: Lung nodule) is scheduled for Dec at 1:00 pm. Patient to arrive to [facility] at 11:00 am. Patient to report to Entrance B and go to information desk and they will direct patient to admitting or the surgery waiting room. Patient will need to complete labs on Sunday CT Ion already scheduled for 12-12-24 Patient to have pre-admission phone call on 12-22-24 at 9:00 am To prepare for the procedure, the patient must do the following: Nothing to eat or drink eight hours prior to procedure. Nothing after 5:00 am on day of procedure. No aspirin or aspirin containing products seven days prior to procedure. Patient to take last dose on 12-29-24 and starting 12-30-24, no aspirin until after procedure. Tylenol only. Make arrangements for a sulky driver to bring you to and from the hospital on the day of the procedure Bring your ID, current medication list and insurance cards to the hospital Call our office if you become ill such as a cold, cough, fever, sore throat or vomiting on the day before or day of the math and physics instructor to update Dr Thapa Case #[id number] [employer] [facility] 12-11-2024 Telephone encounter Note Patient returned call. Manager Money informed patient of the following: Ion Navigational procedure w/EBUS under general anesthesia (Dx: Lung nodule) is scheduled for Dec at 1:00 pm. Patient to arrive to [facility] at 11:00 am. Patient to report to Entrance B and go to information desk and they will direct patient to admitting or the surgery waiting room. Patient will need to complete labs on Sunday CT Ion already scheduled for 12-12-24 Patient to have pre-admission phone call on 12-22-24 at 9:00 am To prepare for the procedure, the patient must do the following: Nothing to eat or drink eight hours prior to procedure. Nothing after 5:00 am on day of procedure. No aspirin or aspirin containing products seven days prior to procedure. Patient to take last dose on 12-29-24 and starting 12-30-24, no aspirin until after procedure. Tylenol only. Make arrangements for a sulky driver to bring you to and from the hospital on the day of the procedure Bring your ID, current medication list and insurance cards to the hospital Call our office if you become ill such as a cold, cough, fever, sore throat or vomiting on the day before or day of the procedure Patient agreeable to above information and verbalized understanding Manager Money to update Dr Thapa Case #[id number] [facility] [employer] 12-11-2024 Telephone encounter Note Patient completed labs today but does not stop aspirin until 12-30-24. Do you want her to repeat them? [facility] [employer] 12-11-2024 Telephone encounter Note No that is fine [facility] [employer] 12-11-2024 Telephone encounter Note Procedure moved up to 12/25/24 at 115 pm with TSA [facility] [employer] Work Phone: 12-11-2024 History of Present illness Narrative Images from the original note were not included. [facility] Patient - Margy Oakes Age - 79 y.o. - 1945 Referring physician: Dr. Vazquez Reason for Consultation: Pulmonary Nodules HPI: Margy Oakes is a 79 y.o. female with history of GERD and remote history of breast cancer status post bilateral mastectomy a proximally 30 years ago. Patient had a cough and underwent chest x-ray and subsequent CT scan of the chest with a chest x-ray revealed pulmonary nodules bilaterally. She did have previous chest x-ray available in my system in 2021 and these nodules were not seen at that time and there therefore considered new since 2021. On CT imaging she had multiple bilateral pulmonary nodules, a proximally 18 on the right, 22 on the left. These nodules are some greater than 1 cm. Subsequent PET-CT was ordered and obtained which demonstrated some uptake in the medial right middle lobe pulmonary nodule alone without any uptake in the other nodules. There was some prominent lymphadenopathy which did not demonstrate some overt uptake. There was also some calcifications noted in this area. 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 She is a never smoker. Her father suffered from bone cancer and prostate cancer. She denies any personal or family history of rheumatologic conditions however she did follow with rheumatology regularly for joint injections at [facility]. She is mostly bothered by this dry cough and increased wheezing that she has had for the past several months. Cough appears worse at night but not necessarily positional. It does occasionally wake her from sleep. She does have some trouble swallowing particularly meat products. This is mostly with initiating it into the esophagus from her description and when she is able to drink water she does not have a sensation that it gets stuck in the middle of her chest. She does take a daily omeprazole low-dose in the morning. She denies any other shortness of breath. Her wheezing comes and goes. She feels as though it is mostly in her upper airway upper chest. She recently had heart catheterization earlier this week which she reports was clean . ASSESSMENT 1. Multiple bilateral pulmonary nodules with PET avid activity in the medial right middle lobe pulmonary nodule measuring 1.2 cm 2. Mediastinal adenopathy with some areas of calcification 3. Remote history of breast cancer 4. GERD 5. Dysphagia 6. Cough with wheezing PLAN PET-CT imaging and CT scan were reviewed in detail with the patient, her and her daughter who is an RN at the visit today. Reviewed that the PET avid pulmonary nodule is along the pericardium medially on the CT imaging and therefore of increased risk for biopsy. It would stand to reason that all of the pulmonary nodules are of the same etiology given onset altogether. Therefore would offer that it would be safer a more reasonable to biopsy 1 of the other sites in addition to bronchoscopy with endobronchial ultrasound and biopsy of lymphadenopathy. Will discussed personally with her oncologist prior to making this definitive plan Will need to hold baby aspirin prior to procedure Discussed with patient option of CT-guided needle biopsy, navigational bronchoscopy with endobronchial ultrasound. I reviewed the bronchoscopy procedure in detail and risks associated with it. All questions answered Will proceed with planning CT scan. Will need preoperative labs Increase omeprazole to 20 mg b.i.d. for now. If this does not help with cough, wheezing, will plan on PFT and inhaler trial Return to clinic to be determined pending above Past Medical History: Diagnosis Date Angina pectoris ([facility] Arthralgia of multiple joints Arthritis Bicipital tendinitis Breast cancer ([facility]) 2024 Cancer ([facility]) breast x2 Carpal tunnel syndrome Dizziness vertigo Fibromyalgia, primary GERD (gastroesophageal reflux disease) Headache Heart burn Hyperlipidemia Hypertension Lumbosacral spinal stenosis Meningioma ([facility]) 07/2019 STABLE Neuropathy Obesity Osteoarthritis Positive SATYA (antinuclear antibody) Radiculopathy of lumbosacral region Trochanteric bursitis of right hip Varicella Visual impairment glasses Past Surgical History: Procedure Laterality Date ADENOIDECTOMY APPENDECTOMY 1960 BREAST BIOPSY 1996 BREAST LUMPECTOMY Bilateral 1992 Right; 1995 Left BUNIONECTOMY CARDIAC CATHETERIZATION 05/2019 CARDIAC CATHETERIZATION 1997 [facility] CARDIAC CATHETERIZATION 12/10/2024 COLONOSCOPY 06/08/2014 Dr. Robles COLONOSCOPY 11/09/2008 Dr. Robles COLONOSCOPY N/A 07/26/2020 Performed by Maverick Robles MD at [facility] EGD N/A 07/26/2020 Performed by Maverick Robles MD at [facility] FOOT SURGERY 09/2019 HYSTERECTOMY JOINT REPLACEMENT Left KNEE ARTHROSCOPY 2016 LYMPH NODE BIOPSY 1992 &1995 MASTECTOMY Bilateral MOUTH SURGERY REPLACEMENT TOTAL JOINT KNEE Left 01/15/2018 Performed by Jr Pepe Jeffries DO at [facility] TARSAL TUNNEL RELEASE TONSILLECTOMY 1949 Lyrica [pregabalin], Penicillins, and Phenergan [promethazine] Prior to Admission medications Medication Sig Start Date End Date Taking? Authorizing Provider acetaminophen (TYLENOL) 325 mg tablet Take 2 tablets (650 mg total) by mouth every 6 (six) hours as needed for pain. Yes Not In System Ref Prov amitriptyline (ELAVIL) 10 mg tablet Take 2 tablets (20 mg total) by mouth nightly. Yes Not In System Ref Prov atorvastatin (LIPITOR) 20 mg tablet Take 1 tablet (20 mg total) by mouth nightly. Yes Not In System Ref Prov cholecalciferol, vitamin D3, 2,000 units capsule Take 1 capsule (2,000 Units total) by mouth in the morning. Yes Not In System Ref Prov diphenhydrAMINE-acetaminophen (TYLENOL PM) 25-500 mg tablet Take 0.5 tablets by mouth nightly as needed for sleep. Yes Not In System Ref Prov DULoxetine (CYMBALTA) 60 mg capsule Take 1 capsule (60 mg total) by mouth nightly. Yes Not In System Ref Prov erythromycin (ILOTYCIN) ophthalmic ointment 06/24/20 Yes Not In System Ref Prov gabapentin (NEURONTIN) 300 mg capsule Take 1 capsule (300 mg total) by mouth 3 (three) times a day. 08/23/22 Yes Vicenta Fernandes MD lisinopril (PRINIVIL,ZESTRIL) 10 mg tablet Take 1 tablet (10 mg total) by mouth in the morning. Yes Not In System Ref Prov meclizine (ANTIVERT) 25 mg tablet Yes Not In System Ref Prov metoprolol succinate XL (TOPROL-XL) 25 mg 24 hr tablet metoprolol succinate ER 25 mg tablet,extended release 24 hr Yes Not In System Ref Prov omeprazole (PriLOSEC) 20 mg capsule Take 1 capsule (20 mg total) by mouth in the morning. Yes Not In System Ref Prov UNABLE TO FIND Take 1,000 mg by mouth in the morning. Med Name: CBD oil . Yes Not In System Ref Prov apple cider vinegar 500 mg tablet Take 450 mg by mouth daily. Not In System Ref Prov gabapentin (NEURONTIN) 300 mg capsule Take 1 capsule (300 mg total) by mouth 3 (three) times a day as needed. Not In System Ref Prov isosorbide mononitrate (IMDUR) 30 mg 24 hr tablet daily. Not In System Ref Prov meloxicam (MOBIC) 15 mg tablet Take 1 tablet (15 mg total) by mouth in the morning. Not In System Ref Prov multivit-minerals/ferrous fum (MULTI VITAMIN ORAL) Take by mouth. Patient not taking: Reported on 12/11/2024 Not In System Ref Prov reports that she has never smoked. She has never used smokeless tobacco. She reports current alcohol use of about 6.0 standard drinks of alcohol per week. She reports that she does not use drugs. Family History Problem Relation Age of Onset Cancer Mother Hypertension Mother Arthritis Mother Lung cancer Mother Stroke Father Cancer Father Hypertension Father Prostate cancer Father Heart disease Father No Known Problems Brother No Known Problems Daughter No Known Problems Son No Known Problems Brother No Known Problems Daughter No Known Problems Daughter Review of Systems: All 11 systems have been reviewed and are negative except as mentioned in History of Present Illness. Exam: General: Alert, oriented, no acute distress, nontoxic, well nourished HEENT: Moist mucosal membranes, no oral lesions or oral thrush, trachea midline Chest: Clear to auscultation bilaterally without any crackles, wheezes, rhonchi. Normal AP diameter. CV: Regular rate regular rhythm Extremities: No edema, erythema, distal cyanosis, clubbing Integumentary: Warm and dry. No rash or lesion Neuro: Cranial nerves 2-11 grossly intact. No lateralizing deficits. VITALS BP 123/49 Pulse 53 Ht 157.5 cm (5' 2 ) Wt 81.8 kg (180 lb 6.4 oz) SpO2 99% BMI 33.00 kg/m PFT Results: None Radiology Dr. María Thapa DO. [facility] Office: [phone] documented [facility] 12-09-[facility]24 Note Patient needs cardia c clearance before she undergoes lung biopsy. The patient underwent cardiac catheterization today which showed mild coronary artery disease and normal LVEDP. Also her echo showed normal left ventricular static function without wall motion abnormalities. Next The patient can proceed with the biopsy or any surgical procedure from the cardiac point of view with necessary anesthesia. She is considered to be at low risk for perioperative cardiac events. [facility] 12-09-2024 Note Patient: Margy grande Procedure Information Date/Time: 12/09/24 1030 Procedure: Coronary angiography Location: [facility]SE 2 BIPLANE / [facility] (Cath) Providers: Kimmy Rosado MD Clinical information reviewed: Allergies Meds Physical Exam Airway Mallampati: III Cardiovascular Dental Pulmonary Abdominal Anesthesia Plan ASA 3 other (Conscious sedation) intravenous induction Anesthetic plan and risks discussed with patient. Use of blood products discussed with patient who consented to blood products. Plan discussed with attending and fellow. Additional Equipment Requests [facility] 11-10-2024 Note [facility] Note Reason for cardiology consult: Chest pain and shortness of breath Chief Complaint: Chest pain and shortness of breath HPI: Margy Oakes is a 79 y.o. female history of mild coronary artery disease per cardiac catheterization 2019, hypertension, hyperlipidemia and breast cancer Reports that for few months she has been having chest pain she describes it as left-sided tightness mostly with exertion but sometimes it occurs at rest. It resolves about 5 minutes after she rests when it occurs with exertion. Also she reports shortness of breath with climbing stairs or extreme exertion. She reports that she rides stationary bike and recently she had to stop due to shortness of breath and little chest tightness. She denies orthopnea or paroxysmal nocturnal dyspnea or dizziness or palpitations or legs edema or discomfort on exertion. She reports gaining about 5 pounds over the last year or so. She denies snoring or being sleepy or tired during the daytime She never smoked. She drinks alcohol socially. She denies illicit drugs Cardiology ROS: GENERAL: Denies fever, chills, night sweats, weight loss. HEENT: Denies changes in vision, photophobia, changes in hearing, epistaxis, oral bleeding. CARDIOVASCULAR: Reports chest pain, and exertional dyspnea as described above, denies orthopnea/PND, lower extremity edema, palpitations, lightheadedness/dizziness. RESPIRATORY: Denies SOB, coughing, wheezing GI: Denies abdominal pain, nausea/vomiting, heartburn, melena/hematochezia. RENAL: Denies dysuria, hematuria, flank pain. MSK: Denies muscle weakness/pain, arthralgias/joint pain. NEUROLOGIC: Denies LOC, weakness, numbness, headaches. SKIN: Denies abnormal rashes or bleeding. PSYCH: Denies significant anxiety, depression, sleep disturbances. Past Medical History She has a past medical history of Cancer ([facility]), Coronary artery disease, Hyperlipidemia, and Hypertension. Surgical History She has a past surgical history that includes Cardiac catheterization; Appendectomy; Breast biopsy; Tonsillectomy; Total knee arthroplasty; Foot surgery; and Mastectomy. Social History She reports that she has never smoked. She has never used smokeless tobacco. She reports current alcohol use. She reports that she does not use drugs. Family History Family History Problem Relation Name Age of Onset Cancer Mother Cancer Father Cancer Brother Allergies Pregabalin, Penicillins, and Promethazine Medications Current Outpatient Medications: amitriptyline (Elavil) 10 mg tablet, Take 20 mg by mouth at bedtime., Disp: , Rfl: atorvastatin (Lipitor) 20 mg tablet, Take 20 mg by mouth at bedtime., Disp: , Rfl: cholecalciferol, vitamin D3, 50 mcg (2,000 unit) capsule, Take 2,000 Units by mouth in the morning., Disp: , Rfl: DULoxetine (Cymbalta) [address] capsule, Take 60 mg by mouth in the morning., Disp: , Rfl: gabapentin (Neurontin) 300 mg capsule, Take 900 mg by mouth at bedtime., Disp: , Rfl: lisinopril 10 mg tablet, Take 10 mg by mouth in the morning., Disp: , Rfl: metoprolol succinate XL (Toprol-XL) 25 mg 24 hr tablet, Take 25 mg by mouth in the morning., Disp: , Rfl: omeprazole (PriLOSEC) [address] capsule, Take 20 mg by mouth in the morning., Disp: , Rfl: aspirin 81 mg EC tablet, Take 1 tablet (81 mg) by mouth in the morning., Disp: 30 tablet, Rfl: 11 isosorbide mononitrate ER (Imdur) 60 mg 24 hr tablet, Take 1 tablet (60 mg) by mouth in the morning., Disp: 30 tablet, Rfl: 11 nitroglycerin (Nitrostat) 0.4 mg SL tablet, Place 1 tablet (0.4 mg) under the tongue every 5 (five) minutes if needed for chest pain., Disp: 30 tablet, Rfl: 12 Last Recorded Vitals Visit Vitals BP 120/66 (BP Location: Left arm, Patient Position: Sitting) Pulse 54 Ht 1.575 m (5' 2 ) Wt 81.6 kg (180 lb) SpO2 96% BMI 32.92 kg/m??? Smoking Status Never BSA 1.89 m??? Physical Examination: GENERAL: alert and oriented x3, well developed, in no acute distress. HEAD: atraumatic, normocephalic. EYES: GERA, EOMI. NECK: trachea midline, no JVD present, no carotid bruits present. CARDIAC: S1, S2 present. RRR. No murmur, rubs, or gallops. RESPIRATORY: CTAB, no increased effort of breathing, no rales, rhonchi, or wheezing. ABDOMEN: soft, nontender, nondistended. EXTREMITIES: no lower extremity edema, peripheral pulses are 2+ bilaterally. No rash/skin discoloration present. NEURO: strength/sensation equal and symmetric in bilateral upper and lower extremities. PSYCH: appropriate mood, affect, and judgement. Labs: 05/19/2024 Cholesterol 231, triglyceride 179, HDL 78, LDL 117 03/03/2024 Sodium 140, potassium 4.7, BUN 16, creatinine 1.08, glucose 93, calcium 9.1, GFR 52 Total protein 6.9, albumin 4.2, alk phos 70, AST 15, ALT 13, total bilirubin 0.4 White blood count 4.6, hemoglobin 11.8, hematocrit 35.6, platelets 240 Last Images: EKG today 11/10/2024 s (more content not included)... [facility] 10-24-2024 Note XR CHEST 2 VWS History: Shortness of breath Procedure: 2 view PA and Lateral chest radiograph. Comparison: 02/02/2022 Findings: Cardiac silhouette and pulmonary vessels within normal limits. No pneumothorax. No consolidation or pleural effusions. There are few vague nodular opacities in the right lung partially 1 cm. IMPRESSION: Right lung nodular opacities. Recommend CT chest for further evaluation. Finalized by Norberto Corrigan MD on 10/24/2024 4:16 PM [facility] 08-27-2024 History of Present illness Narrative Associated Order(s): L Inj/Asp: R knee Post-Procedure Diagnose(s): Primary osteoarthritis of right knee Images from the original note were not included. NAME: Margy Oakes : 1945 HISTORY OF PRESENT ILLNESS: Margy Oakes is an 79 y.o. @ female. (EST PT) RT KNEE PAIN, 2 YRS (2021), CONTINUES GETTING WORSE. WENT TO [facility] ER 07/19 AFTER A FALL - HAS HAD PAIN SINCE LAST DEPO INJ 04/16 XRAY TODAY EPIC 08/27/24 XRAY [facility] 07/09/23 DEPO INJECTION 04/16/24 PHYSICAL THERAPY @ [facility]- WITHIN THE LAST YEAR NOTES GOOD RELIEF FROM INJECTION UNTIL HER FALL. PAIN MEDIAL AND LATERAL KNEE. TAKING TYL. DENIES N/T, SWELLING. OCCAS GIVING OUT. PAST MEDICAL HISTORY: Past Medical History: Diagnosis Date Breast cancer (CMS/HCC) Hypertension (CMS/HCC) PAST SURGICAL HISTORY: Past Surgical History: Procedure Laterality Date APPENDECTOMY 1960 BREAST BIOPSY Right 1992 BREAST BIOPSY Left 1995 BREAST LUMPECTOMY Right 1992 BREAST LUMPECTOMY Left 1995 COLONOSCOPY 2019 FOOT SURGERY 2009 FOOT SURGERY [address] [facility] MOUTH SURGERY TONSILLECTOMY 1948 TOTAL KNEE ARTHROPLASTY Left 2017 Dr Jeffries ALLERGIES: Allergies Allergen Reactions Pregabalin Dizziness, Headache, Other and Shortness of breath Other Reaction(s): depression/ weight gain, Other (See Comments) Depression Penicillins Headache Other Reaction(s): n/v, Other (See Comments) Flu like symptoms Promethazine Anxiety, Dizziness, Hallucinations, Itching, Other and Palpitations Other Reaction(s): aggitation, Other (See Comments) Agitation HOME MEDICATIONS: Current Outpatient Medications Medication Instructions acetaminophen (Tylenol Extra Strength) 500 MG tablet Every 6 hours amitriptyline (Elavil) 10 MG tablet diphenhydrAMINE-acetaminophen (Tylenol PM Extra Strength) 25-500 MG per tablet Every 24 hours DULoxetine (CYMBALTA) 60 mg, Oral, Nightly gabapentin (Neurontin) 300 MG capsule 1 capsule, Every 12 hours isosorbide mononitrate ER (Imdur) 30 MG 24 hr tablet Every 24 hours lisinopril 10 MG tablet Every 24 hours metoprolol succinate XL (Toprol-XL) 25 MG 24 hr tablet metoprolol succinate ER 25 mg tablet,extended release 24 hr Multiple Vitamin (Multivitamin Adult) tablet as directed Orally omeprazole (PRILOSEC) 20 mg, Oral, Daily RT Vitals: There is no height or weight on file to calculate BMI. PHYSICAL EXAM: Right Knee Exam Tenderness The patient is experiencing tenderness in the medial joint line and lateral joint line. Range of Motion Extension: -5 Flexion: 120 Tests Charlene: Medial - negative Alisha: Anterior - negative Other Erythema: absent Sensation: normal Pulse: present Swelling: mild Effusion: no effusion present IMAGING: XR knee 1 or 2 views right Imaging Result: 08/27/2024: Standing AP and LAT of the right knee demonstrates lateral joint space narrowing with valgus alignment. There is sclerosis noted to medial and lateral tibial plateau. Impression: Left knee osteoarthritis with valgus alignment. Lavinia Herring APRN-MEDICAL CODING TECHNICIAN L Inj/Asp: R knee on 08/27/2024 12:21 PM Indications: pain Details: 21 G needle, anterolateral approach Medications: 40 mg methylPREDNISolone acetate 40 MG/ML Outcome: tolerated well, no immediate complications Site cleaned with isopropyl alcohol Procedure, treatment alternatives, risks and benefits explained, specific risks discussed. Consent was given by the patient. ASSESSMENT: ICD-10-CM 1. Primary osteoarthritis of right knee M17.11 L Inj/Asp: R knee 2. Right knee pain, unspecified chronicity M25.561 XR knee 1 or 2 views right PLAN: I reviewed xray findings with the patient and discussed treatment options, answered questions. I discussed with the patient the option of an injection as she had good relief with previous injection. I advised the patient of risks associated with an injection including a reaction to medication, infection, failure to improve and possible worsening. The patient demonstrated understanding. Patient requesting injection. Skin Cleansed with alcohol swab. Utilizing aseptic technique patient given 40mg Depomedrol was injected. Patient tolerated this well. Neurovasc intact s/p injection. Post injection care instructions discussed. She will follow up as needed. Questions answered in laymen terms at the bedside. The diagnosis, home exercise plan and any ongoing restrictions/ recommendations reviewed. If unable to be reached in office, I recommend evaluation at nearest Emergency Room if any symptoms worsened or new symptoms develop for requiring urgent evaluation. Lavinia Herring APRN-MEDICAL CODING TECHNICIAN documented in this encounter [facility] 01-11-2024 History of Present illness Narrative Images from the original note were not included. [facility] [address] [place] [address], [address] [place] [address] * FOLLOW-UP NOTE ? 01/11/2024 Patient: Margy Oakes 1945 [id number] Physician: Vicenta Fernandes MD, FACS CHIEF COMPLAINT Follow-up after lumbar MRI HISTORY OF PRESENT ILLNESS Margy Oakes is a 78 y.o. female. Complaints are still the same. Her Dr. Wants to start her on amitriptyline at night. ALLERGIES Allergies Allergen Reactions Lyrica [Pregabalin] Other (See Comments) Depression Penicillins Other (See Comments) Flu like symptoms Phenergan [Promethazine] Other (See Comments) Agitation VITAL SIGNS Ht 157.5 cm (5' 2 ) Wt 79.8 kg (176 lb) BMI 32.19 kg/m PHYSICAL EXAMINATION No change in exam MRI / IMAGES She has more than enough room for the roots at every level on the right side. IMPRESSSION / PLAN I certainly do not see anything that looks like surgery is going to help her. I would feel okay about adding amitriptyline 25 or 50 mg at night. I would also keep her on the gabapentin. Electronically signed by: Vicenta Fernandes MD, [facility] This note was created with the assistance of a speech recognition program with the goal of generating a timely record of the patient encounter. Inadvertent computerized emergency vehicle dispatcher errors related to syntax, spelling, homophones, and/or inaudibility may be present. documented in this encounter [facility] 01-11-2024 Instructions Katelyn Stevens CMA - 01/11/2024 9:40 AM EST Patient was seen today by Dr. Fernandes documented in this encounter [facility] 11-09-2023 Miscellaneous Notes Margy calls into the office stating that she look all over for her MRI of the lumbar that she had done previously. Patient stated that Dr. Fernandes told her if she could not find the old MRI to call the office so an order can be placed for a new MRI. Margy was informed that a order will be placed. documented in this encounter [facility] 11-09-2023 Telephone encounter Note Margy calls into the office stating that she look all over for her MRI of the lumbar that she had done previously. Patient stated that Dr. Fernandes told her if she could not find the old MRI to call the office so an order can be placed for a new MRI. Margy was informed that a order will be placed. [facility] 05-31-2022 Note PROCEDURE: XR FOOT R T MIN 3 VIEWS HISTORY: Pain in right foot COMPARISON: XR foot right 04/04/2022 FINDINGS: BONES:Prior bunionectomy. Osteotomy with wedge placement within the medial cuneiform. Mechanical fusion of the talocalcaneal joints via lag screws. SOFT TISSUES:No visible soft tissue swelling. EFFUSION:None visible. OTHER: Negative. IMPRESSION: 1. Stable surgical changes without evidence of hardware failure or change in alignment. 2. No appreciable acute abnormality to account for patient's symptoms. Electronically authenticated by: NORBERTO IVAN Date: 2022-05-31 21:57 [facility] 05-02-2022 Note CONSULTATION PROCEDURE DATE: 05/02/2022 PREOPERATIVE DIAGNOSIS: Anterior tibial spasm. 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 Subsequent to obtaining informed consent, the patient was placed in the sitting position. Alcohol prep was used to sterilize the site. A 25 gauge needle was advanced and it comes to rest along the anterior tibial trigger points defined. Negative aspiration. Marcaine 0.125% along with 10 mg of Kenalog are placed. Next, attention is again placed along the tarsal tunnel. Marcaine 0.125% along with Kenalog 10 mg are placed. Negative heme. The patient tolerates the procedure well, without any overt complication and will be followed up in the office. [facility] Signed and Approved by: DR BERNABE PRATHER . 05/09/2022 09:22:00 [facility] 05-02-2022 Note CONSULTATION CONSULTATION DATE: 05/02/2022 CHIEF COMPLAINT: Right leg pain. HISTORY OF PRESENT ILLNESS: This is a very pleasant, 77-year-old female who we had performed a tenolysis along the tarsal tunnel and anterior tibial trigger point injection. This has afforded the patient substantial improvement to the point where the patient went for an annual event, which she was not planning on attending, where she received some awards. She was able to ambulate, walk for long distances and increased her socialization. 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 The patient describes the pain as a 5/10, a throbbing sensation. The patient is maintained on gabapentin 300 mg t.i.d., baclofen 10 mg q.p.m. and a topical ointment. The patient's PAST MEDICAL HISTORY / SURGICAL HISTORY / REVIEW OF SYSTEMS are noted on the chart, along with the MEDICATION LIST / ALLERGIES and RADIOLOGICAL IMAGES. PHYSICAL EXAMINATION: GENERAL: Upon physical examination, this is a pleasant, cooperative female who has significant improvement in her right leg function. FOCUSED EVALUATION: The patient's anterior tibial musculature, which was spasmodic and almost in a compartment syndrome, has substantially improved. The suppleness of the tissue has improved. We are able to define one point along the distal anterior tibial where the patient still has pain and a significant jump response. Along the medical tarsal tunnel, there is still an area of puckering along the scar tissue which is also causing a component of her pain. The patient does report 60+% improvement on her baseline discomfort along the plantar aspect of her foot. 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 PLAN: The patient will start Os-Jamey with Vitamin D3 on a daily basis, Miacalcin nasal spray has been given to the patient. We will perform anterior tibial trigger point injection and scar tissue infiltration along the tarsal tunnel today. The patient will discuss with Lucia Esteban and the Podiatry Department with regards to the possibility of the stimulator. The patient had misconception of upsetting our practice should she have this done. The patient was reassured that this would not be the case and, if there is a non-union, we need to follow through with the [employer] dealer's recommendation. Subsequent to the visit today, the patient will be followed up for return visit in 2-3 months. The patient understands and would like to proceed. CC: Lucia Esteban M.D. [facility] Signed and Approved by: DR BERNABE PRATHER . 05/09/2022 09:22:00 [facility] 04-18-2022 Note CONSULTATION PROCEDURE DATE: 04/18/2022 PREOPERATIVE DIAGNOSIS: 1. Right anterior tibial spasm. 2. Scar tissue entrapment along the tarsal tunnel and plantar nerves. POSTOPERATIVE DIAGNOSIS: 1. Right anterior tibial spasm. 2. Scar tissue entrapment along the tarsal tunnel and plantar nerves. PROCEDURE: 1. Right anterior trigger point injection x2. 2. Right tarsal tunnel infiltration. Subsequent to obtaining informed consent, the patient was placed in the sitting position. Alcohol prep was used to sterilize the site. A 25 gauge needle was advanced and it comes to rest along the trigger points defined on her leg, just distal to the surgical scar. Negative aspiration. Marcaine 0.125% along with Kenalog 10 mg are placed to each site. Next, attention is placed to the tarsal tunnel. Going distal to proximal, the needle is fed via the scar tissue. No paresthesia is noted into her foot. Negative aspiration. Volumetric expansion is performed along the tarsal tunnel. Marcaine 0.125% along with Kenalog 20 mg are injected to the site. Negative heme. The patient tolerates the procedure well, without any overt complication, reports significant improvement in her pain on her right leg. No intervention was performed on her left. [facility] Signed and Approved by: DR BERNABE PRATHER . 04/25/2022 08:30:00 [facility] 04-18-2022 Note CONSULTATION CONSULTATION DATE: 04/18/2022 CHIEF COMPLAINT: Right foot pain, right leg pain. HISTORY OF PRESENT ILLNESS: This is a very pleasant, 77-year-old female, who was seen initially in mid February by us. The patient had had long standing right leg pain subsequent to multiple podiatric and orthopedic surgeries on her right side. The patient described the pain at that time as an 8/10. Currently, she describes the pain as an 8/10 in her foot, and now she is noticing the discomfort and pain in her left foot. She describes it as a throbbing, shooting pain. The patient has been attending physical therapy and has completed a treatment course where myofascial release was performed. She found this to be equivocal; however, I believe she has unrealistic expectations. Standing, walking, activities aggravate the patient's pain. The patient currently takes gabapentin 300 mg b.i.d., baclofen 10 mg q.p.m., topical ointments. The patient was seen by Podiatry and a surgical intervention was offered and/or a bone stimulator for her. I do not believe that these are needed at this time, especially given the amount of pathology that the patient had had prior to us seeing her in the last two visits. The patient's PAST MEDICAL HISTORY / SURGICAL HISTORY / REVIEW OF SYSTEMS are noted on the chart, along with the MEDICATION LIST / ALLERGIES and RADIOLOGICAL IMAGES. PHYSICAL EXAMINATION: GENERAL: Upon physical examination, this is a pleasant, cooperative female, who has significant pain demeanor; however, overall looks significantly better than her initial visit. VITAL SIGNS: 137/66 with a heart rate of 69. At a height of 5'2 , the patient weighs 76 kg. FOCUSED EVALUATION OF THE RIGHT LOWER EXTREMITY: Decreased spasming along the anterior tibia was noted substantially. The coloration, rubor and tonicity has decreased substantially. The patient is able to flex her ankle without overt discomfort. In focusing her pain in her right lower extremity, the patient reports along the fibula head having discomfort and pain. The patient had a surgical intervention along that area to release the nerve. The patient also has pain on the medial aspect of her ankle, along the tarsal tunnel, which also had surgical intervention. The patient has loss of plantar arch. IMPRESSION: Significant improvement in the right lower extremity anterior tibial muscle compartment. Coloration/spasming improved. The patient has tenderness along the insertional site, along the fibular head, where surgical intervention was performed. PLAN: We will perform anterior tibial trigger point injection x2 at that time. With regards to the medial aspect of her foot and the pain in her arch, for the first time, we will address the tarsal tunnel by performing a scar tissue infiltration along the tarsal tunnel. The patient understands and would like to proceed. CC: Lucia Esteban M.D. [facility] Signed and Approved by: DR BERNABE PRATHER . 04/25/2022 08:30:00 [facility] 04-04-2022 Note PROCEDURE: XR FOOT R T MIN 3 VIEWS, XR ANKLE RT MIN 3 VIEWS HISTORY: Pain in right foot COMPARISON: XR ankle and foot bilateral 02/01/2022 FINDINGS: BONES:Prior fusion of the talocalcaneal joint via 2 lag screws; no evidence of hardware fracture or loosening. Osteotomy and wedge placement within the medial cuneiform. Prior bunionectomy. No fracture or dislocation. Mild flattening of the plantar arch. SOFT TISSUES:No visible soft tissue swelling. EFFUSION:None visible. OTHER: Negative. IMPRESSION: 1. Stable surgical changes without evidence of hardware failure or change in alignment. Electronically authenticated by: NORBERTO IVAN Date: 2022-04-04 09:40 [facility] 04-04-2022 Note PROCEDURE: XR FOOT R T MIN 3 VIEWS, XR ANKLE RT MIN 3 VIEWS HISTORY: Pain in right foot COMPARISON: XR ankle and foot bilateral 02/01/2022 FINDINGS: BONES:Prior fusion of the talocalcaneal joint via 2 lag screws; no evidence of hardware fracture or loosening. Osteotomy and wedge placement within the medial cuneiform. Prior bunionectomy. No fracture or dislocation. Mild flattening of the plantar arch. SOFT TISSUES:No visible soft tissue swelling. EFFUSION:None visible. OTHER: Negative. IMPRESSION: 1. Stable surgical changes without evidence of hardware failure or change in alignment. Electronically authenticated by: NORBERTO IVAN Date: 2022-04-04 09:40 [facility] 03-28-2022 Note CONSULTATION PROCEDURE DATE: 03/28/2022 PREOPERATIVE DIAGNOSIS: Bilateral lower extremity pain, bilateral lower extremity spasm with compressive neuropathy along the anterior tibial and also along the gastrocs bilaterally. POSTOPERATIVE DIAGNOSIS: Bilateral lower extremity pain, bilateral lower extremity spasm with compressive neuropathy along the anterior tibial and also along the gastrocs bilaterally. PROCEDURE: Bilateral trigger point injections and deep myofascial release. Subsequent to obtaining informed consent, the patient was placed in the sitting position. Alcohol prep was used to sterilize the site. A 25 gauge needle was advanced and it comes to rest on the right hand side along four separate trigger sites. Marcaine 0.125% along with Kenalog approximately 20 mg are injected. Next, attention is placed to the left hand side and, once again, Marcaine 0.125% along with Kenalog is placed for a total of 40 mg of Kenalog. Subsequent to this, deep myofascial release is performed along the anterior tibialis and the gastrocs. This was, as would be anticipated, significantly uncomfortable for the patient. However, the patient wanted it to proceed. Post procedurally, the patient reports having improvement in the range of motion of her ankle. The neuropathic pain along the medial aspect was still present; however, the range of motion and comfort in her legs were notable to the patient. [facility] Signed and Approved by: DR BERNABE PRATHER . 04/04/2022 12:22:00 [facility] 03-28-2022 Note CONSULTATION CONSULTATION DATE: 03/28/2022 CHIEF COMPLAINT: Bilateral leg pain, bilateral foot pain. HISTORY OF PRESENT ILLNESS: This is a pleasant, 77-year-old female who has just completed physical therapy. The patient has attended six visits, where the patient was to have deep myofascial release in her lower extremities. She did not find the depth of the massage as beneficial. The patient rates the pain as a 6/10. It varies. Sitting mitigates the pain. Standing, walking, activities, housework, lifting, ADLs aggravate the pain. The patient had undergone podiatric surgery in her right foot remotely, as noted previously in the chart. The patient currently takes gabapentin 300 mg b.i.d., baclofen 10 mg q.p.m. and finds it helpful. She uses a topical ointment. The patient's PAST MEDICAL HISTORY / SURGICAL HISTORY / REVIEW OF SYSTEMS are noted on the chart, along with the MEDICATION LIST / ALLERGIES and the RADIOLOGICAL IMAGES. PHYSICAL EXAMINATION: GENERAL: Upon physical examination, this is a pleasant, cooperative female who appears to be concerned. VITAL SIGNS: Stable at 131/63 with a heart rate of 53. At a height of 5'2 , the patient weighs 78 kg. FOCUSED EVALUATION OF THE LOWER EXTREMITIES: Coloration of the lower extremities has improved substantially compared to the first visit. Color, temperature is improved. Suppleness of the muscles is present; however, spasmodic areas are noted along the gastrocsoleus and anterior tibialis bilaterally, right hand side greater than left hand side. Compressive neuropathy is noted. Loss of plantar arch is present on the right lower extremity. Well healed surgical scar. Neuromas are palpable on the right lower extremity. IMPRESSION: Current working diagnosis on the patient is bilateral lower extremity pain, bilateral lower extremity spasm with compressive neuropathy. Right ankle status post remote ankle surgery. Neuromas noted along the medial aspect. PLAN: We will perform lower extremity trigger point injections bilaterally, followed by a deep myofascial release. The patient understands and would like to proceed. CC: Lucia Esteban, M.D. [facility] Signed and Approved by: DR BERNABE PRATHER . 04/04/2022 12:22:00 [facility] 02-28-2022 Note CONSULTATION Consultation Date:02/28/2022 PAIN MANAGEMENT CONSULTATION CHIEF COMPLAINT: Bilateral leg pain. HISTORY OF PRESENT ILLNESS: This is a very pleasant, 77-year-old female who has had chronic lower extremity pain. The patient has had multiple podiatric surgeries to her feet that aggravated the patient's pain. The patient reports pain currently as a 6/10. This is a significant improvement compared to the baseline that the patient came in with on her first visit two weeks ago, where we had performed trigger point injections and deep myofascial release. The patient states the pain varies. Walking, transitioning, activities, climbing stairs aggravate the patient's pain, as does change in weather. Sleep mitigates the patient's pain. The patient is taking medical marijuana to help her with her pain, along with gabapentin 300 mg b.i.d. She uses topical cream. The patient is accompanied by her . The patient's PAST MEDICAL HISTORY / SURGICAL HISTORY / REVIEW OF SYSTEMS are noted on the chart, along with the MEDICATION LIST / ALLERGIES and RADIOLOGICAL IMAGES. PHYSICAL EXAMINATION: GENERAL: Upon physical examination, this is a very pleasant, cooperative female, who has significant improvement in her ambulation. The patient is able to stand up out of the chair without walking on stilts. VITAL SIGNS: Stable at 154/90 with a heart rate of 77. At a height of 5'7 , the patient weighs 113 kg. EXTREMITIES: The suppleness of the gastrocsoleus, anterior tibial has improved; however, still has a component and multiple myofascial trigger points noted throughout this area. The patient, unfortunately, currently is on a waiting list for having physical therapy and massage performed. PSYCHIATRICALLY: The patient is distraught and is exhausted, as would be understandable. IMPRESSION: Current working diagnosis on the patient is severe myofascial spasm, bilateral foot pain with significant trigger points along the surgical scar, myalgia. The patient was reassured. PLAN: The patient was assured that a significant portion of the problem is from her lower extremity musculature in and of themselves, and the patient was encouraged not to wear the ankle brace on her right foot when she is at home. A physical therapy consult has been ordered; Sunday, Sunday, Sunday x6 weeks for myofascial release to the lower extremities bilaterally. In the interim, the patient will also take baclofen 10 mg q.p.m. The patient is a very vital, engaging individual, who feels trapped and reassurance was given to the patient. The patient will be followed up in the office in one month. CC: Lucia Esteban M.D. [facility] Signed and Approved by: DR BERNABE PRATHER . 03/07/2022 12:16:00 [facility] 02-14-2022 Note CONSULTATION PAIN MANAGEMENT CONSULTATION CHIEF COMPLAINT: Bilateral leg pain. HISTORY OF PRESENT ILLNESS: This is a very pleasant, 77-year-old female, who was referred to us by physician spa assistant manager, Loly Fox. The patient's family physician is Dr. Lucia Estebna. The patient has had chronic leg pain. The patient has undergone multiple foot surgeries for fallen arches. The patient reports the pain as a 6/10. At times it gets to 8-9/10 where the pain shoots up her leg. Transitioning, standing, climbing stairs, activities, ADLs, weather aggravate the patient's pain. The patient has attended physical therapy; however, did not find this helpful. The patient takes gabapentin 300 mg b.i.d., Tylenol PM. The patient also uses a gabapentin, ketoprofen ointment to help with her foot pain. X-rays of her feet are noted on to the chart and were reviewed in office today. PHYSICAL EXAMINATION: Upon physical examination, this is a pleasant, cooperative female, who is accompanied by her . VITAL SIGNS: Stable at 166/65 with a heart rate of 50. At a height of 5'2 , the patient weighs 79 kg. The patient is wearing an orthotic and a right ankle brace. FOCUSED EVALUATION: Significant spasming along the anterior tibial and the gastrocsoleus muscles are noted bilaterally with significant jump response. Myofascial - The patient has a valgus deformity of her left knee, where she has had orthopedic procedures in the past. NEUROLOGICALLY: Hypoesthesia is present bilaterally in a stocking distribution. PSYCHIATRICALLY: Affect is appropriate. IMPRESSION: Bilateral lower extremity pain, bilateral foot pain, multiple foot surgeries in the past, significant spasming along the anterior tibial with entrapment of peripheral nerves. PLAN: The patient is to apply heat rub to her legs and have her massage them every evening. In the interim, we will perform trigger point injections in office today and also perform a myofascial release. The patient understands and would like to proceed. CC: Lucia Esteban M.D. [facility] Signed and Approved by: DR BERNABE PRATHER . 02/21/2022 11:53:00 [facility] 02-14-2022 Note CONSULTATION PROCEDURE NOTE PREOPERATIVE DIAGNOSIS: Spasming along the anterior tibial, gastrocsoleus muscle bilaterally. POSTOPERATIVE DIAGNOSIS: Spasming along the anterior tibial, gastrocsoleus muscle bilaterally. PROCEDURE: Trigger point injections and myofascial release. Subsequent to obtaining informed consent, the patient was placed in the supine position. Alcohol prep was used to sterilize the site. A 25 gauge needle was advanced until it comes to rest along the anterior tibial, gastrocsoleus muscle bilaterally. Six separate trigger points are performed. Marcaine 0.125% along with Kenalog, a total of 40 mg are injected to the site. Negative heme. Post-procedurally, myofascial release was performed to the legs bilaterally, subsequent to which the patient reported having improvement in her pain symptomatology and her gait. The patient will be followed up in the office in two weeks. IFC Signed and Approved by: DR BERNABE PRATHER . 02/21/2022 11:53:00 [facility] Evaluation note Diagnosis Primary osteoarthritis of right knee- Primary Right knee pain, unspecified chronicity documented in this encounter [facility] HealthcareEvaluation note* Diagnosis Pulmonary nodules/lesions, multiple- Primary Other diseases of lung, not elsewhere classified Pulmonary nodule Other diseases of lung, not elsewhere classified [facility]* Diagnosis Preop testing- Primary Unspecified pre-operative examination Pulmonary nodule Other diseases of lung, not elsewhere classified SOB (shortness of breath) Shortness of breath documented in this encounter [facility]* Diagnosis Neuropathy- Primary Mononeuritis of unspecified site documented in this encounter [facility]* Diagnosis Neuropathy- Primary Mononeuritis of unspecified site documented in this encounter [facility]* Diagnosis Acute pain of right knee- Primary Arthritis of right knee documented in this encounter [facility]* Diagnosis Moderate persistent asthma without complication- Primary [facility] Diagnosis Pulmonary nodules/lesions, multiple- Primary Other diseases of lung, not elsewhere classified Dyspnea on exertion Other dyspnea and respiratory abnormality Moderate persistent asthma without complication [facility] filed[facility] filedocumented in this [facility] filedocumented in this [facility] filedocumented in this encounter [facility] on filedocumented in this [facility] filedocumented in this [facility] filedocumented in this [facility] filedocumented in this [facility] Summary Purpose Family History No Family History Records FoundNo Family History Records FoundNo Family History Records FoundNo Family History Records FoundNo Family History Records FoundNo Family History Records FoundNo Family History Records FoundNo Family History Records Found Advance Directives No Advanced Directives Records FoundNo Advanced Directives Records FoundNo Advanced Directives Records FoundNo Advanced Directives Records FoundNo Advanced Directives Records FoundNo Advanced Directives Records FoundNo Advanced Directives Records FoundNo Advanced Directives Records Found Reason for Referral Specialty Diagnoses / Procedures Referred By David roa Referred To Contact Radiology Diagnoses Neuropathy Procedures MR lumbar spine without contrast Vicenta Fernandes MD [address] [place] [address] [address] [place] [address] Referral ID Status Reason Start Date Expiration Date V isits Requested Visits Authorized [id number] Pending Review 11/09/2023 11/08/2024 1 1 Additional Source Comments INFORMATION SOURCE (unrecogn ized section and content) DATE CREATED AUTHOR 07/11/2019 [facility] DATE CREATED AUTHOR AUTHOR'S ORGANIZ ATION 06/15/2022 [facility] DATE CREATED AUTHOR AUTHOR'S ORGANIZ ATION 11/14/2024 [facility] DATE CREATED AUTHOR AUTHOR'S ORGANIZ ATION 12/14/2024 [facility] DATE CREATED AUTHOR AUTHOR'S ORGANIZ ATION 02/07/2025 [facility] DATE CREATED AUTHOR AUTHOR'S ORGANIZ ATION 02/21/2025 [facility] DATE CREATED AUTHOR AUTHOR'S ORGANIZ ATION 03/20/2025 [facility] DATE CREATED AUTHOR AUTHOR'S ORGANIZ ATION 03/21/2025 [facility] Source Comments (unrecognize d section and content) In the event this informatio n is protected by the Federal Confidentiality of Alcohol and Drug Abuse Patient Records regulations: The Federal rules restrict any use of the information to criminally investigate or prosecute any alcohol or drug abuse patient.[facility] Care Teams (unrecognized sec tion and content) Customer Support Professional Relationship Specialty Start Date End Date Lucia Etseban MD [address] [place] [address] PCP - External PCP Family Medicine 04/21/23 Lucia Esteban MD [address] [place] [address] PCP - General Family Medicine 04/16/24 Customer Support Professional Relationship Specialty Start Date End Date Lucia Esteban MD [address] [place] [address] PCP - External PCP Family Medicine 04/21/23 Lucia Esteban MD [address] [place] [address] PCP - General Family Medicine 04/16/24 Customer Support Professional Relationship Specialty Start Date End Date Lucia Esteban MD [address] [address] PCP - General 05/04/15 Customer Support Professional Relationship Specialty Start Date End Date Lucia Esteban MD [address] [address] PCP - General 05/04/15 Customer Support Professional Relationship Specialty Start Date End Date Lucia Esteban MD [address] [address] PCP - General 05/04/15 Customer Support Professional Relationship Specialty Start Date End Date Lucia Esteban MD [address] [address] PCP - General 05/04/15 Customer Support Professional Relationship Specialty Start Date End Date Lucia Esteban MD [address] [address] PCP - General 05/04/15 Customer Support Professional Relationship Specialty Start Date End Date Lucia Esteban MD [address] [address] PCP - General 05/04/15 Customer Support Professional Relationship Specialty Start Date End Date Lucia Esteban MD [address] [address] PCP - General 05/04/15 Customer Support Professional Relationship Specialty Start Date End Date Lucia Esteban MD [address] [address] PCP - External PCP Family Medicine 04/21/23 Lucia Esteban MD [address] [id number] PCP - General Family Medicine 04/16/24 Customer Support Professional Relationship Specialty Start Date End Date Lucia Esteban MD [address] [address] PCP - External PCP Family Medicine 04/21/23 Lucia Esteban MD [address] [address] PCP - General Family Medicine 04/16/24 Customer Support Professional Relationship Specialty Start Date End Date Lucia Esteban MD [address] [address] PCP - General 05/04/15 Customer Support Professional Relationship Specialty Start Date End Date Lucia Esteban MD [address] [address] PCP - General 05/04/15 Customer Support Professional Relationship Specialty Start Date End Date Lucia Esteban MD [address] [address] PCP - General 05/04/15 Customer Support Professional Relationship Specialty Start Date End Date Lucia Esteban MD [address] [address] PCP - General 05/04/15 Reason for Visit (unrecogniz ed section and content) Reason Comments Pain Reason Comments New Patient CT: 11/14/2024PET CT : 12/02/2024 Lung Nodule Specialty Diagnoses / Procedures Referred By David t Referred To Contact Pulmonary Medicine Diagnoses Pulmonary nodule Natasha Vazquez MD [address] [place] [address] [address]kw[address] [place] [address] Phone: tel: fax: [facility] [address] [address] Phone: tel: fax: Referral ID Status Reason Start Date Expiration Date Visits Requested Visits Authorized [id number] Pending Review Specialty Services Required 12/04/2024 12/04/2025 1 1 Reason Comments Med Refill Reason Onset Date Comments MRI 11/09/2023 Reason Comments Follow-up Ep review mri Reason Comments Follow-up Pulmonary nodules/le yousuf, multipleCXR: 12/25/2024 FOR RECORDS PERTAINING TO PATIENTS WHO ARE OR HAVE BEEN ENROLLED IN A CHEMICAL DEPENDENCY/SUBSTANCEABUSE PROGRAM, SOME INFORMATION MAY BE OMITTED. This clinical summary was aggregated from multiple sources. Caution should be exercised in using it in the provision of clinical care. This summary normalizes information from multiple sources, and as a consequence, information in this document may materially change the coding, format and clinical context of patient data. In addition, data may be omitted in some cases. CLINICAL DECISIONS SHOULD BE BASED ON THE PRIMARY CLINICAL RECORDS. [facility]. provides no warranty or guarantee of the accuracy or completeness of information in this document.
--- NOTE | 2025-03-28 16:17 | ECG_ITS ---
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 Measurements Intervals [place] Rate: 58 P: 30 AL: 186 QRS: 15 QRSD: 86 T: -12 QT: 396 QTc: 394 Interpretive Statements 1100 Sinus rhythm [address] depression 4164 Twave abnormality, possible anterior ischemia 9150 abnormal ECG Compared to ECG 09/05/2019 07:21:56 ST (T wave) deviation now present Electronically Signed On 03-28-2025 18:14:31 EDT by KHOA DAS M.D.
--- NOTE | 2025-03-28 16:41 | ED.GENADUL1 ---
HPI HPI - General Adult General Chief complaint: Headache Stated complaint: Headache Time Seen by Provider: 03/28/25 16:09 Source: patient Mode of arrival: walk-in Limitations: no limitations History of Present Illness HPI narrative: Patient is an 80-year-old female presents to the ER with concerns of not feeling well. Patient states she is having generalized body aches and cough. She denies any fever. Patient states symptoms started on Sunday or Sunday with mild congestion. She was seen by Dr. Vazquez on Sunday and placed on Levaquin 500 mg. She has taken this for 3 days with symptoms worsening. She denies feeling short of breath just achy all over. My arms hurt. Patient is currently on Ibrance/ Letrozole for breast cancer which she has had 3 times Current oral tx with chemo pill, prior mastectomy . Patient recently underwent an MRI noted for hemangioma. She reports having nausea and no appetite for the past 2 days. She denies any chest pain. She denies any abdominal pain. Patient appears nontoxic but fatigued at bedside. Patient notes mild headache but states this is not her main concern. I am just congested and cannot stop coughing. Radiation: Reports non-radiation Pain Consistency: Reports constant Relieving factors: Reports none Exacerbating factors: Reports none Treatments prior to arrival: Reports other (Tylenol earlier today) Related Data Home Medications ?Medication ?Instructions ?Recorded ?Confirmed albuterol sulfate 90 mcg/actuation 1 puff inhalation Q8H PRN 03/28/25 03/28/25 aerosol inhaler shortness of breath or wheezing amitriptyline 10 mg tablet 10 mg PO Q12H 03/28/25 03/28/25 atorvastatin 20 mg tablet 20 mg PO DAILY 03/28/25 03/28/25 benzonatate 100 mg capsule 100 mg PO Q12H 03/28/25 03/28/25 duloxetine 60 mg capsule,delayed 60 mg PO DAILY 03/28/25 03/28/25 release fluticasone furoate 200 1 inh inhalation Q24H 03/28/25 03/28/25 mcg-vilanterol 25 mcg/dose inhalation powder (Breo Ellipta) gabapentin 300 mg capsule 300 mg PO Q8H 03/28/25 03/28/25 hydrochlorothiazide 12.5 mg capsule 12.5 mg PO DAILY 03/28/25 03/28/25 isosorbide mononitrate 30 mg 30 mg PO DAILY 03/28/25 03/28/25 tablet,extended release 24 hr letrozole 2.5 mg tablet 2.5 mg PO Q24H 03/28/25 03/28/25 levofloxacin 500 mg tablet 500 mg PO Q24H 03/28/25 03/28/25 lisinopril 10 mg tablet 10 mg PO DAILY 03/28/25 03/28/25 metoprolol succinate 25 mg 25 mg PO DAILY 03/28/25 03/28/25 tablet,extended release 24 hr montelukast 10 mg tablet 10 mg PO DAILY 03/28/25 03/28/25 nitroglycerin 0.4 mg sublingual 0.4 mg sublingual Q5M PRN chest 03/28/25 03/28/25 tablet pain omeprazole 20 mg capsule,delayed 20 mg PO Q8H 03/28/25 03/28/25 release palbociclib 125 mg tablet (Ibrance) 125 mg PO DAILY 03/28/25 03/28/25 tizanidine 4 mg tablet 4 mg PO DAILY 03/28/25 03/28/25 Allergies Allergy/AdvReac Type Severity Reaction Status Date / Time Penicillins Allergy Unknown Unknown Verified 02/18/25 09:44 pregabalin (From Lyrica) Allergy Unknown Unknown Verified 02/18/25 09:44 Opioid HPI Opioid Management Most Recent Opioid Data: Last Pain Scale 5 Today, 16:05 Last JAN Pain Assessment Today, 16:49 Review of Systems ROS Constitutional Reports: fatigue; Denies: fever or chills Eyes Denies: change in vision or blurry vision Ears, nose, mouth, and throat Denies: throat pain, neck pain or throat swelling Cardiovascular Denies: chest pain, palpitations, edema, swelling of feet/ankles or shortness of breath with exertion Respiratory Reports: cough; Denies: shortness of breath or wheezing Gastrointestinal Reports: nausea; Denies: abdominal pain or vomiting Genitourinary Denies: painful urination or urinary frequency Musculoskeletal Reports: other (Generalized arthralgias); Denies: back pain Integumentary/Breast Denies: rash or itching Neurological Reports: headache; Denies: numbness in extremities, weakness in extremities or lack of coordination Psychiatric Denies: anxiety or mood swings Endocrine Denies: excessive urination PFSH PFSH Social History Little interest or pleasure in doing things: not at all Feeling down, depressed, or hopeless: not at all Exam Narrative Exam Narrative: Nurses notes and vital signs reviewed and patient is not hypoxic. General: The patient appears well but fatigued and tired at the bedside. Resting comfortably. No increased work of breathing. Skin: Warm, dry, no pallor noted. no evidence of rash or petechiae Head: Normocephalic, atraumatic Neck: Supple, trachea mid-line, no tenderness, no lymphadenopathy Eye: Pupils are equal, round and reactive to light, EOMI Ears, Nose, Mouth, and Throat: TM are clear, normal light reflex, oral mucosa is moist, no posterior oropharynx erythema or hypertrophy, uvula is mid-line, mild postnasal drainage Cardiovascular: Regular Rate and Rhythm Respiratory: Patient is in no distress, no accessory muscle use, lungs are clear to auscultation, no wheezing, rales or rhonchi. Dry cough noted Chest Wall: no tenderness Back: non-tender, no CVA tenderness Musculoskeletal: normal ROM, no tenderness, no swelling, no focal joint pain patient notes that her body just aches motioning both arms from elbows to wrist. GI: Normal bowel sounds, no tenderness to palpation, no masses appreciated. No rebound, guarding, or rigidity noted. Neurological: A&O x4 Psychiatric: Cooperative Constitutional Vital Signs, click to edit/add: Last Vital Signs Temp 97.8 F 03/28/25 16:05 Pulse 68 03/28/25 16:05 Resp 18 03/28/25 16:05 BP 149/67 H 03/28/25 16:05 Pulse Ox 96 03/28/25 16:05 O2 Del Method Room Air 03/28/25 16:05 Course Vital Signs Vital signs: Vital Signs Temperature 97.8 F 03/28/25 16:05 Pulse Rate 68 03/28/25 16:05 Respiratory Rate 18 03/28/25 16:05 Blood Pressure 149/67 H 03/28/25 16:05 Pulse Oximetry 96 03/28/25 16:05 Oxygen Delivery Method Room Air 03/28/25 16:05 Temperature 97.8 F 03/28/25 16:05 Pulse Rate 68 03/28/25 16:05 Respiratory Rate 18 03/28/25 16:05 Blood Pressure 149/67 H 05/17/25 16:05 Pulse Oximetry 96 03/28/25 16:05 Oxygen Delivery Method Room Air 03/28/25 16:05 Medical Decision Making MDM Narrative Medical decision making narrative: Patient with history of breast cancer currently currently getting treated with oral medication. Patient developed a upper respiratory infection on Sunday saw us on Sunday and was placed on Levaquin. She has taken doses x 3 days but not feeling better, feeling generally weak and wiped out with mild headache and annoying dry cough. She denies feeling breath... Patient was given IV fluids up to 1 L, Tylenol 1 g p.o. and Toradol 15 mg IV. Patient was reevaluated noting that her headache was near completely gone and that she is feeling better I am getting antsy to leave. The discussed laboratory studies she has a history of leukopenia platelets are within normal range. She has elevation in her creatinine and BUN from her baseline. Chest x-ray without obvious infiltrate trace atelectasis on personal interpretation formal radiologist interpretation is pending. myoglobin also elevated. Patient able to ambulate to provide urine sample and reports feeling much better clinically. The urinalysis was noted for moderate leukocytes and bacteria urine culture will be pending. Patient is pending but was on Levaquin for the past 2 to 3 days. Case was discussed with Dr. Vazquez, her oncologist that saw her on Sunday. He reported her looking clinically well on Sunday but placed her on Levaquin out of an abundance of caution given her upper respiratory symptoms and had her hold her Ibrance, he is ok with her holding Letrozole now too... Feels she has not responding to the Levaquin and requests 1 g of IV Rocephin which is more renal friendly. He would like to see improvement in her kidney function before she goes home. Patient aware of laboratory studies, dehydration consistent with acute kidney injury and possible UTI given her neutropenic state and oral treatment for breast cancer. He advised that the patient still seems weak and tired she can do 6 to 8 mg of dexamethasone, but she appears to have responded well to the fluid bolus and Tylenol/ Toradol. Will hold on steroid at this time. Patient agreeable with observation admission for continued IV hydration and reevaluation. case was discussed with Loly Abel, [employer] hospitalist, she is agreeable to admission of the patient for observation and continued IV hydration, IV Rocephin given here in the ER. Medical Records Medical records reviewed: Yes I reviewed the patient's medical records Medical records narrative: Cardiac echo done on November 25, 2024 noted for LVEF of 65% mild concentric left ventricular hypertrophy with normal systolic function and normal right-sided pressures. MRI brain:03/19/25 Enhancing extra-axial mass is noted along the anterior falx measuring 3.0 x 2.1 x 1.5 cm with what appears to be a dural tail suspicious for a meningioma. No abnormal enhancement is seen within the brain parenchyma to suggest metastatic disease. Cortical atrophy with moderate chronic microvascular ischemic changes. Lab Data Lab results reviewed: Yes I reviewed the patient's lab results Labs: Lab Results 03/28/25 03/28/25 03/28/25 Range/Units 16:44 17:00 17:58 WBC 1.9 L (4.0-11.0) 10^3/uL RBC 2.69 L (4.20-5.40) 10^6/uL Hgb 9.8 L (12.0-16.0) g/dL Hct 29.3 L (36.0-48.0) % MCV 108.9 H (81.0-99.0) fL MCH 36.4 H (26.7-34.0) pg MCHC 33.4 (29.9-35.2) g/dL RDW 20.5 H (11.0-15.0) % Plt Count 152 (150-450) 10^3/uL MPV 9.6 (9.5-13.5) fL Neut % (Auto) Not Reportable Lymph % (Auto) Not Reportable [place] % (Auto) Not Reportable Eos % (Auto) Not Reportable Baso % (Auto) Not Reportable Neut # (Auto) Not Reportable Lymph # (Auto) Not Reportable [place] # (Auto) Not Reportable Eos # (Auto) Not Reportable Baso # (Auto) Not Reportable Abs Immat Gran (auto) Not Reportable Seg Neuts % (Manual) 48.0 (43.0-75.0) Lymphocytes % (Manual) 42.0 (20.5-60.0) % Monocytes % (Manual) 6.0 (1.7-12.0) % Eosinophils % (Manual) 2.0 (0.9-7.0) % Basophils % (Manual) 2.0 (0.2-2.0) % Imm/Tot Granulo (auto) Not Reportable Neutrophils # (Manual) 0.91 L (1.4-6.5) 10^3/uL Lymphocytes # (Manual) 0.79 L (1.20-3.80) 10^3/uL Monocytes # (Manual) 0.11 L (0.30-0.80) 10^3/uL Eosinophils # (Manual) 0.03 (0.00-0.70) 10^3/uL Basophils # (Manual) 0.03 (0.00-0.10) 10^3/uL PT 11.4 (9.0-11.6) sec INR 1.08 APTT 30.3 (22.3-36.2) sec Sodium 133 L (136-145) mmol/L Potassium 4.2 (3.5-5.1) mmol/L Chloride 98 (98-107) mmol/L Carbon Dioxide 26.0 (21.0-32.0) mmol/L Anion Gap 13.2 BUN 32.0 H (7.0-18.0) mg/dL Creatinine 2.53 H (0.55-1.02) mg/dL Est GFR ( Amer) 22 L (>=60 mL/min/1.73m^2) Est GFR (Non-Af Amer) 18 L (>=60 mL/min/1.73m^2) BUN/Creatinine Ratio 12.6 Glucose 129 H (74-106) mg/dL Lactate 1.2 (0.4-2.0) mmol/L Calcium 9.3 (8.5-10.1) mg/dL Total Bilirubin 0.6 (0.2-1.0) mg/dL AST 27 (15-37) U/L ALT 28 (14-59) U/L Alkaline Phosphatase 88 (46-116) U/L Myoglobin 181 H (9-82) ng/mL Troponin I High Sens 8.2 (4.0-51.3) pg/mL Total Protein 7.6 (6.4-8.2) g/dL Albumin 3.6 (3.4-5.0) g/dL Globulin 4.0 g/dL Albumin/Globulin Ratio 0.9 Lipase 17.0 (16.0-77.0) U/L Urine Color Lt. yellow (YELLOW) Urine Clarity Sl cloudy (CLEAR) Urine pH 5.5 (5.0-9.0) Ur Specific [place] 1.015 (1.005-1.025) Urine Protein Negative (NEG/TRACE) mg/dL Urine Glucose (UA) Negative (NEGATIVE) mg/dL Urine Ketones Negative (NEGATIVE) mg/dL Urine Occult Blood Negative (NEGATIVE) Urine Nitrite Negative (NEGATIVE) Urine Bilirubin Negative (NEGATIVE) Urine Urobilinogen 1.0 (0.2-1.0) EU/dL Ur Leukocyte Esterase Moderate A (NEGATIVE) Urine RBC 0-2 (0-2) #/HPF Urine WBC 2-5 A (NONE SEEN) #/HPF Ur Squamous Epith Cells Few A (NONE/RARE) #/LPF Ur Transition Epith Cell Few A (NONE SEEN) #/LPF Urine Crystals None seen (None Seen) #/HPF Urine Bacteria Moderate A (NONE SEEN) #/HPF Urine Casts Seen A (NONE SEEN) #/LPF Hyaline Casts Rare Urine Mucus Trace A (NONE SEEN) Ur Culture Indicated? Yes-[facility] [place] Influenza Type A Ag Negative Influenza Type B Ag Negative SARS-CoV-2 Ag (CV2AG) Negative (NEGATIVE) Imaging Data Chest x-ray: Attestation: I personally reviewed and interpreted this imaging study as follows: Radiologist's impression: No acute process no consolidation no pulmonary edema pleural effusion or pneumothorax. ECG Data Attestation: I personally reviewed and interpreted this ECG as follows: Interpretation: EKG interpretation: Emergency Department physician interpretation, normal sinus rhythm 58, no ectopy, no ST segment elevation, normal axis. T wave inversion in multiple leads ( No old EKGS at our facility for Comparison) Discharge Plan Discharge Chief Complaint: Headache Clinical Impression: Acute kidney injury, Acute UTI, Neutropenia, Breast cancer, Upper respiratory infection Patient Disposition: Admitted as Observation Time of Disposition Decision: 18:50 Condition: Good
[2025-03-28] MEDS: ONDANSETRON PF 4 MG/2 ML VIAL IV (16:49)
[2025-03-28] MEDS: KETOROLAC TROMETHAMINE 30 MG/ML VIAL 15 MG IVP (16:49)
[2025-03-28] MEDS: ACETAMINOPHEN 500 MG TABLET 1000 MG PO (16:50)
[2025-03-28] MEDS: 0.9 % SODIUM CHLORIDE 1,000 ML 999 ML IV (16:50)
[2025-03-28 17:08] LABS: Hematocrit 29.3 % (36.0-48.0); Hemoglobin 9.8 g/dL (12.0-16.0); Mean Corpuscular HGB Conc 33.4 g/dL (29.9-35.2); Mean Corpuscular Hemoglobin 36.4 pg (26.7-34.0); Mean Corpuscular Volume 108.9 fL (81.0-99.0); Mean Platelet Volume 9.6 fL (9.5-13.5); Platelet Count 152 10^3/uL (150-450); Red Cell Distribution Width 20.5 % (11.0-15.0); White Blood Count 1.9 10^3/uL (4.0-11.0)
[2025-03-28 17:20] LABS: Influenza Virus A Antigen Negative; Influenza Virus B Antigen Negative; Internal Control Within Normal Limits
[2025-03-28 17:21] LABS: Internal Control Within Normal Limits; SARS-CoV-2 Ag NEGATIVE (NEGATIVE)
[2025-03-28 17:24] LABS: INR 1.08; Partial Thromboplastin Time 30.3 sec (22.3-36.2); Prothrombin Time 11.4 sec (9.0-11.6)
[2025-03-28 17:31] LABS: Lactate/Lactic Acid 1.2 mmol/L (0.4-2.0)
[2025-03-28 17:38] LABS: Alanine Aminotransferase 28 U/L (14-59); Albumin Globulin Ratio 0.9; Albumin Level 3.6 g/dL (3.4-5.0); Alkaline Phosphatase 88 U/L (46-116); Anion Gap 13.2; Aspartate Amino Transferase 27 U/L (15-37); BUN Creatinine Ratio 12.6; Bilirubin Total 0.6 mg/dL (0.2-1.0); Calcium 9.3 mg/dL (8.5-10.1); Chloride 98 mmol/L (98-107); Estimated GFR (African America 22 (>=60 mL/min/1.73m^2); Estimated GFR (Non-African Ame 18 (>=60 mL/min/1.73m^2); Glucose 129 mg/dL (74-106); Potassium 4.2 mmol/L (3.5-5.1); Sodium 133 mmol/L (136-145); Total Protein 7.6 g/dL (6.4-8.2); Troponin I High Sensitivity 8.2 pg/mL (4.0-51.3)
[2025-03-28 17:46] LABS: Myoglobin 181 ng/mL (9-82)
[2025-03-28 18:03] LABS: Basophils Abs Manual 0.03 10^3/uL (0.00-0.10); Eosinophils Absolute Manual 0.03 10^3/uL (0.00-0.70); Lymphocytes Absolute Manual 0.79 10^3/uL (1.20-3.80); Monocytes Absolute Manual 0.11 10^3/uL (0.30-0.80); Segmented Neut Absolute Manual 0.91 10^3/uL (1.4-6.5)
[2025-03-28 18:04] LABS: Red Blood Count 2.69 10^6/uL (4.20-5.40)
[2025-03-28 18:17] LABS: Bilirubin Urine NEGATIVE (NEGATIVE); Blood Urine NEGATIVE (NEGATIVE); Clarity Urine SL CLOUDY (CLEAR); Color Urine LT. YELLOW (YELLOW); Glucose Urine UA NEGATIVE (NEGATIVE); Ketones Urine NEGATIVE (NEGATIVE); Leukocyte Esterase Urine MODERATE (NEGATIVE); Nitrite Urine NEGATIVE (NEGATIVE); Protein Urine NEGATIVE (NEG/TRACE); Specific Gravity Urine 1.015 (1.005-1.025); pH Urine 5.5 (5.0-9.0)
[2025-03-28 18:20] LABS: Urine Microscopic Indicated YES
[2025-03-28 18:27] LABS: Bacteria Urine MODERATE #/HPF (NONE SEEN); Crystals Seen? None Seen #/HPF (None Seen); Mucus Urine TRACE (NONE SEEN); RBC Urine 0-2 #/HPF (0-2); Squamous Epithelial Cell Urine FEW #/LPF (NONE/RARE); Transitional Epi Cells Urine FEW #/LPF (NONE SEEN)
[2025-03-28 18:28] LABS: Cast Seen? SEEN #/LPF (NONE SEEN); Hyaline Casts Urine RARE; Urine Culture Indicated YES-FRMC
[2025-03-28] MEDS: CEFTRIAXONE 1,000 MG in 0.9 % SODIUM CHLORIDE 50 ML 100 MG IV (18:46)
--- OUTSIDE RECORDS SUMMARY | 2025-03-28 20:10 | XMS_ITS | CCD ---
Author Organization [facility] Care Team Providers Care Weaver Apprentice Name Role Phone UNKNOWN, PROVIDER Admitting Unavailable UNKNOWN, PROVIDER Attending Unavailable LUCIA ESTEBAN Referring Unavailable LUCIA ESTEBAN Primary Care Unavailable Shea Reyes Primary Care Provider CJ FOX Attending Unavailable ROSANNA, CJ Admitting Unavailable MONCHO, DR NORBERTO Trammell Consulting [...] Unavailable PRATHER, DR BERNABE Mejia Consulting Unavailable CRESCENCIO, DR BERNABE Mejia Attending Unavailable LORI, DR LUCIA Mckeon Primary Care Unavailable CRESCENCIO, DR BERNABE Mejia Admitting Unavailable LORI, DR LUCIA Mckeon Primary Care Unavailable CRESCENCIO, DR BERNABE Mejia Attending Unavailable LORI, DR LUCIA Mckeon Primary Care Unavailable DISHA HARRIS Admitting Unavailabl e DISHA HARRIS Attending Unavailabl e MONCHO, DR NORBERTO Trammell Consulting Unavailable DISHA HARRIS Consulting Unavailabl e LORI, DR LUCIA Mckeon Primary Care Unavailable CJ FOX Admitting Unavailable ROSANNA, CJ Attending Unavailable MONCHO, DR NORBERTO Trammell Consulting Unavailable ROSANNA, CJ Consulting Unavailable LORI, DR LUCIA Mckeon Primary Care Unavailable TOMA, FIDE Khalil Attending Unavailable TOMA, FIDE Khalil Admitting Unavailable MONCHO, DR NORBERTO Trammell Consulting Unavailable FIDE CHUA Consulting Unavailable Lucia Esteban MD Unavailable Lucia Esteban MD Primary Care Provider [phone] LORI LUCIA A Referring Unavailable ESTEBAN, LUCIA A Primary Care Unavailable VICENTA FERNANDES Referring Unavailable ESTEBAN, LUCIA A Primary Care Unavailable ESTEBAN, LUCIA A Referring Unavailable ESTEBAN, LUCIA A Primary Care Unavailable ESTEBAN, LUCIA A Referring Unavailable ESTEBAN, LUCIA A Primary Care Unavailable ESTEBAN, LUCIA A Primary Care Unavailable MYERSDOMINIQUE Attending Unavailable MYERS, DOMINIQUE Maloney Attending Unavailable MYERSDOMINIQUE W Referring Unavailable ESTEBAN, LUCIA A Primary Care Unavailable MYERS, DOMINIQUE Maloney Attending Unavailable MYERS, DOMINIQUE Maloney Referring Unavailable ESTEBAN, LUCIA A Primary Care Unavailable MYERS, DOMINIQUE Maloney Attending Unavailable MYERS, DOMINIQUE Haider Referring Unavailable ESTEBAN, LUCIA A Primary Care Unavailable ESTEBAN, LUCIA A Referring Unavailable ESTEBAN, LUCIA A Primary Care Unavailable KIMMY ROSADO Referring Unavailable ESTEBAN, LUCIA A. Primary Care Unavailable Lucia Esteban MD Primary Care Provider MARÍA THAPA Attending Unavailable MARÍA THAPA Referring Unavailable ESTEBAN, LUCIA A Primary Care Unavailable MARÍA THAPA Referring Unavailable ESTEBAN, LUCIA A Primary Care Unavailable Lucia Esteban MD Primary Care Provider [phone] BRANNON CARRANZA Attending Unavailable LAVINIA HERRING Attending [...] (3 sources) Levamisole Drug Allergy 9 [facility] (1 source) Penicillin Drug Allergy 9 [facility] (2 sources) pregabalin Drug Allergy 9 [facility] (7 sources) Penicillins; Translations: [PENICILLINS] Drug allergy (disorder) 3 [facility] (7 sources) Penicillins Drug Intolerance 8 Headache [facility] Work Phone: (12 sources) Pregabalin; Translations: [PREGABALIN] Allergy to substance 8 Dizziness, Headache, Other, Shortness of breath [facility] (20 sources) Promethazine; Translations: [PROMETHAZINE] Drug Allergy 8 Anxiety, Dizziness, Hallucinations, Itching, Other, Palpitations, Other (See Comments) [facility] (7 sources) Penicillins Propensity to adverse reactions to drug 8 Other (See Comments) [facility] (11 sources) pregabalin Drug Allergy 8 Other (See Comments) [facility] (4 sources) Penicillins Propensity to adverse reactions to drug 8 Other (See Comments) [facility] Medications Current Medications Medication Drug Class(es) Dates Sig (Normalized) Sig (Original) acetaminophen 500 mg oral tablet (18 sources) acetaminophen (T ylenol Extra Strength) 500 MG tablet every 6 (six) hours Active take 2 tablets by [facility] every six hours as needed for pain acetaminophen (TYLENOL) 325 mg tablet Indications: pain Take 2 tablets (650 mg total) by mouth every 6 (six) hours as needed for pain Indications: pain. Active acetaminophen 500 mg / diphenhydrAMINE hydrochloride 25 mg oral tablet (18 sources) Histamine-1 Receptor Antagonist diphenhydrAMINE-acet aminophen (Tylenol PM Extra Strength) 25-500 MG per tablet 1 (one) time each day at the same time Active albuterol 0.83 mg/ml inhalation solution (6 [...] Active amitriptyline hydrochloride 10 mg oral tablet (16 sources) Tricyclic Antidepressant amitrip tyline (Elavil) 10 MG tablet Active take 2 tablets by mouth once bob ly amitriptyline (ELAVIL) 10 mg tablet Indications: anxiety , insomnia Take 2 tablets (20 mg total) by mouth nightly Indications: anxious, difficulty sleeping. Active apple cider vinegar 500 mg oral tablet (3 sources) End: 12-11-2024 apple cider vinegar 500 mg tablet Take 450 mg by mouth daily. 12/11/2024 Discontinued (Therapy completed) ascorbic acid 60 mg / beta carotene 5000 unt / copper sulfate 40 mg / dl-alpha tocopheryl acetate 30 unt / sodium selenite 0.04 mg / zinc oxide 40 mg oral tablet (7 sources) Vitamin C Multiple Vitamin (Multivitamin Adult) [...] DULoxetine 60 mg delayed release oral capsule (18 sources) Serotonin and Norepinephrine Reuptake Inhibitor take 1 capsule by mouth at bedtime DULoxetine (Cymbalta) [address] capsule Take 60 mg by mouth at bedtime Active erythromycin 0.005 mg/mg ophthalmic ointment (11 [...] 1 puff in the morning. 60 each 6 02/20/2025 Active gabapentin 300 mg oral capsule [...] mononitrate 30 mg extended release oral tablet (10 sources) Nitrate Vasodilator End: 12-11-2024 isosorbide mononitrate ER (Imdur) 30 MG 24 hr tablet 1 (one) time each day at the same time Active letrozole 2.5 mg oral tablet (5 sources) Aromatase Inhibitor take 1 tablet by mouth once daily letrozole (FEMARA) 2.5 mg chemo tablet Take 1 tablet by mouth daily Possible early breast cancer Active lisinopril 10 mg oral tablet (18 sources) Angiotensin Converting Enzyme Inhibitor lisinopril 10 MG tablet 1 (one) time each day at the same time Active meclizine hydrochloride 25 mg oral tablet [...] succinate 25 mg extended release oral tablet (18 sources) beta-Adrenergic Magdalena metoprolol succinate XL (Toprol-XL) 25 MG 24 hr tablet metoprolol succinate ER 25 mg tablet,extended release 24 hr Active montelukast 10 mg oral tablet (3 [...] omeprazole 20 mg delayed release oral capsule (19 sources) Proton Pump Inhibitor Start: 12-11-2024 End: 12-11-2024 take 1 capsule by mouth at bedtime omeprazole (PriLOSEC) 20 mg capsule TAKE 1 CAPSULE(20 MG) BY MOUTH IN THE MORNING AND AT BEDTIME 180 capsule 3 12/11/2024 Active palbociclib 125 mg oral capsule (3 sources) Kinase Inhibitor take 1 capsule by [...] disease (5 sources) Atherosclerotic heart disease of [place] coronary artery with unstable angina pectoris; Translations: [...] be stable. Continue current management. Patient informed. [facility] 36on 02-24-2025 36 Patient returned my call. She hasn't started hydrochlorothiazide yet. She said the pharmacy had trouble obtaining it, and then she and her were out of town for a bit. She will start it today and have BMP next week. Order faxed to [facility]. [facility] 36 Regarding lab result s from 02/03/2025: MD Megan Thomas MA Creatinine is little higher after starting hydrochlorothiazide. Check with the patient if her shortness of breath and blood pressure are better. Spoke with . He said Margy was currently driving somewhere but he will have her return my call. [facility] No Panel Informationon 02-06 LOLA Dickey 02/06/2025 [...] discussed. Consent was given by the patient. [facility] Healthcare [facility] Follow-Upon 01-21-2025 Follow-Up [id number] Sugar Oakes 1945 F Date Provider Department Center 01/21/2025 [id number] ROSADO SILVIA [facility] Family History Problem Relation Age of Onset Cancer Mother Cancer Father Cancer Brother Family Status - Relation Status Age at Mother Father Brother Level of Service:88020 DC OFFICE/OUTPATIENT ESTABLISHED MOD MDM 30 MIN Reason for Visit and Comments: Post-Cath [731] Normal [facility] AFB CULTURE(CONCENTRATED)on 12-25-2024 Mycobacterium sp identified Org specific cx Nom (Unsp spec) SPECIMEN NOTES SPECIMEN 3 AFB SMEAR NO ACID FAST BACILLI (CONCENTRATED SMEAR) CULTURE RESULTS NO ACID FAST BACILLI ISOLATED IN 8 WEEKS Normal [facility] Comment on above: Performed By: #### 5 43-9 #### [facility] ([id number]) [address], [address] [place] [address] Mycobacterium sp identified Org specific cx Nom (Unsp spec) SPECIMEN NOTES SPECIMEN 1 AFB SMEAR NO ACID FAST BACILLI (CONCENTRATED SMEAR) CULTURE RESULTS NO ACID FAST BACILLI ISOLATED IN 8 WEEKS Normal [facility] Comment on above: Performed By: #### 5 43-9 #### [facility] ([id number]) [address], [address] [place] [address] AND DIFFon 2024 BODY FLUID COMMENT Interpreta tion -------- Normal [facility] Comment on above: Result Comment: Refe rence values for this fluid type are undefined, as fluid accumulation is considered abnormal. Performed By: #### B FCT #### [facility] ([id number]) [address], [address] [place] [address] FLUID CLARITY TURBID Normal [facility] Comment on above: Performed By: #### B FCT #### [facility] ([id number]) [address], [address] [place] [address] FLUID COLOR COLORLESS Normal [facility] Comment on above: Performed By: #### B FCT #### [facility] ([id number]) [address], [address] [place] [address] FLUID EOSINOPHIL 12 % Normal [facility] Comment on above: Performed By: #### B FCT #### [facility] ([id number]) [address], [address] [place] [address] FLUID LYMPHOCYTE 1 % Normal [facility] Comment on above: Performed By: #### B FCT #### [facility] ([id number]) [address], [address] [place] [address] FLUID NEUTROPHILS 85 % Normal [facility] Comment on above: Performed By: #### B FCT #### [facility] ([id number]) [address], [address] [place] [address] 129 /uL Normal [facility] Comment on above: Performed By: #### B FCT #### [facility] ([id number]) [address], [address] [place] [address] FLUID SPECIMEN TYPE BRONCHIAL WASHING Normal [facility] Comment on above: Result Comment: RIGH T LUNG, MIDDLE LOBE Performed By: #### B FCT #### [facility] ([id number]) [address], [address] [place] [address] MACROPHAGES 2 % Normal [facility] Comment on above: Performed By: #### B FCT #### [facility] ([id number]) [address], [address] [place] [address] 1065 /uL Normal [facility] Comment on above: Performed By: #### B FCT #### [facility] ([id number]) [address], [address] [place] [address] BODY FLUID COMMENT Interpreta tion -------- Normal [facility] Comment on above: Result Comment: Refe rence [...] abnormal. Performed By: #### B FCT #### [facility] ([id number]) [address], [address] [place] [address] FLUID CLARITY TURBID Normal [facility] Comment on above: Performed By: #### B FCT #### [facility] ([id number]) [address], [address] [place] [address] FLUID COLOR RED Normal [facility] Comment on above: Performed By: #### B FCT #### [facility] ([id number]) [address], [address] [place] [address] FLUID EOSINOPHIL 3 % Normal [facility] Comment on above: Performed By: #### B FCT #### [facility] ([id number]) [address], [address] [place] [address] FLUID LYMPHOCYTE 13 % Normal [facility] Comment on above: Performed By: #### B FCT #### [facility] ([id number]) [address], [address] [place] [address] FLUID NEUTROPHILS 81 % Normal [facility] Comment on above: Performed By: #### B FCT #### [facility] ([id number]) [address] [facility], [address] [place] [address] [place] [address] /uL Normal [facility] Comment on above: Performed By: #### B FCT #### [facility] ([id number]) [address] [place] [address], [address] [place] [address] FLUID SPECIMEN TYPE BRONCHOALVEOLAR LAVAGE Normal [facility] Comment on above: Result Comment: RIGH T LUNG, MIDDLE LOBE Performed By: #### B FCT #### [facility] ([id number]) [address] [place] [address], [address] [place] [address] MACROPHAGES 3 % Normal [facility] Comment on above: Performed By: #### B FCT #### [facility] ([id number]) [address] [place] [address], [address] [place] [address] 4 /uL Normal [facility] Comment on above: Performed By: #### B FCT #### [facility] ([id number]) [address] [place] [address], [address] [place] [address] Cytologyon 12-25-2024 Cytology Normal [facility] Comment on above: Result Comment: [facility] [address] [place] [address] Cytology Consultation ADDENDUM DC Patient Name:MARGY OAKES:1945 (Age: 79)Gender:FTaken:12/25/2024Reported:12/29/2024 16:11Physician(s):Isidra Simmons MD ([phone])Copy To: Rec. #:[id number]: #[id number] Final Cytologic Diagnosis 1. Right middle lobe, [...] immunohistochemistry for estrogen receptor, progesterone receptors and HER2/sarhai overexpression are being performed, results of which will be reported in an addendum. [facility]12/26/2024 Interpretation performed at [facility], [address] [place] [id number], License number: [id number].Electronically Signed Out By Min Acuna MD Additional Report(s): Addendum ([facility]) Date Reported: 01/01/2025 BREAST BIOMARKER REPORTING TEMPLATE [...] and Drug Administration (FDA) cleared (test/vendor): Confirm/ [employer], Primary Antibody: SP1 Progesterone Receptor: FDA cleared (test/vendor): Confirm/ [employer], Primary Antibody: 1E2 HER2: FDA approved (test/vendor): Pathway/ [employer], Primary Antibody: 4B5 Detection System (ER, PgR and/or HER2): [employer] ultraView Brandamore DAB Detection Kit (indirect biotin-free detection) Scoring [...] and Progesterone receptor Testing in Breast Cancer; [place] Society of Clinical Oncology/College of [place] Pathologists Guideline Update. Arch Pathol Lab Med. doi:10.5858/arpa.[id number]-TY. 2. Erwin SAUCEDA, Diana CANTU, Aydee CARDENAS, et al. Human Epidermal Growth Factor Receptor 2 Testing in Breast Cancer; [place] Society of Clinical Oncology/College of [place] Pathologist Clinical Practice Guideline Focused Update. Arch Pathol Lab Med. doi: 10.5858/arpa.[id number]-WX. Electronically Signed Out Min Acuna MD Addendum ([facility]) Date Reported: 01/08/2025 Results of testing for HER2, Breast Tumor, FISH, Tissue dated 01/07/2025 are received from [facility], [address] [place] [address] and are as follows: Result Summary: Negative [...] NO FUNGUS ISOLATED AFTER 4 WEEKS Normal [facility] Comment on above: Performed By: #### 5 80-1 #### [facility] ([id number]) [address], [address] [place] [address] Fungus identified Cx Nom (Unsp spec) SPECIMEN NOTES SPECIMEN 1 FUNGAL SMEAR NO FUNGAL ELEMENTS SEEN ON CONCENTRATED SMEAR CULTURE RESULTS NO FUNGUS ISOLATED AFTER 4 WEEKS Normal [facility] Comment on above: Performed By: #### 5 80-1 #### [facility] ([id number]) [address], [address] [place] [address] LOWER RESPIRATORY CULTUREon 12-25-2024 Bacteria identified Respiratory culture Nom (Sput) SPECIMEN NOTES SPECIMEN 3 GRAM STAIN >25 WHITE BLOOD CELLS/LPF 0 to 1 SQUAMOUS EPITHELIAL CELLS/LPF 0 CILIATED EPITHELIAL CELLS/LPF NO ORGANISMS SEEN CULTURE RESULTS NO GROWTH 2 DAYS Normal [facility] Comment on above: Performed By: #### 6 24-7 #### [facility] ([id number]) [address], [address] [place] [address] Bacteria identified Respiratory culture Nom (Sput) SPECIMEN NOTES SPECIMEN 1 GRAM STAIN 0 to 1 WHITE BLOOD CELLS/LPF 0 SQUAMOUS EPITHELIAL CELLS/LPF 0 CILIATED EPITHELIAL CELLS/LPF NO ORGANISMS SEEN CULTURE RESULTS NO GROWTH 2 DAYS Normal [facility] Comment on above: Performed By: #### 6 24-7 #### [facility] ([id number]) [address], [address] [place] [address] Surgical Pathologyon 025 Surgical Pathology Normal [facility] Comment on above: Result Comment: [facility] [address] [place], [place] [address] Surgical Pathology Consultation ADDENDUM DC Patient Name:MARGY OAKES:1945 (Age: 79)Gender:FTaken:12/25/2024Reported:12/30/2024Physician(s):Isidra Simmons MD ([phone])Copy To: Rec. #:[id number]: #[id number] Final Pathologic Diagnosis Right lung, middle lobe nodule, needle biopsy: CARCINOMA, consistent with METASTATIC MAMMARY CARCINOMA. Comment The tumor is glandular and papillary. Immunostains were performed, with adequate controls, and reveal strong positivity for GATA3 and CK7 with negative TTF1, Napsin-A and p40. The morphology and immunophenotype are those of a metastatic mammary carcinoma. ER, DC and Her2 will be performed and reported as an addendum. Report Electronically Signed Out 12/30/2024Gene MD Aldair Addendum ([facility]) Date Reported: 12/31/2024 BREAST BIOMARKER REPORTING TEMPLATE [...] and Drug Administration (FDA) cleared (test/vendor): Confirm/ [employer], Primary Antibody: SP1 Progesterone Receptor: FDA cleared (test/vendor): Confirm/ [employer], Primary Antibody: 1E2 HER2: FDA approved (test/vendor): Pathway/ [employer], Primary Antibody: 4B5 Detection System (ER, PgR and/or HER2): [employer] ultraView Brandamore DAB Detection Kit (indirect biotin-free detection) Scoring [...] and Progesterone receptor Testing in Breast Cancer; [place] Society of Clinical Oncology/College of [place] Pathologists Guideline Update. Arch Pathol Lab Med. doi:10.5858/arpa.[id number]-TU. 2. Erwin SAUCEDA, Diana CANTU, Aydee CARDENAS, et al. Human Epidermal Growth Factor Receptor 2 Testing in Breast Cancer; [place] Society of Clinical Oncology/College of [place] Pathologist Clinical Practice Guideline Focused Update. Arch Pathol Lab Med. doi: 10.5858/arpa.[id number]-MB. The tissue block is being sent for Her2 analysis by FISH. Electronically Signed Out Agustin Quinteros MD Addendum ([facility]) Date Reported: 01/12/2025 Results of testing for HER2, Breast Tumor, FISH, Tissue dated 01/06/2025 are received from [facility], [address] [place] [address] and are as follows: Result Summary: Negative [...] ( Group 5 ) (1). References: 1. Erwin et al., J Clin Oncol, 36(20):1955-6870, 2018 Result nuc umm([id number],NGN6d9-1) HER2/D17Z1 ratio: 1.22 Average HER2 signals per cell: 3.6 Average D17Z1 signals per cell: 2.9 Reason for Referral: HER2 equivocal metastatic mammary carcinoma Source: Right lung Method: FISH using probes for HER2 (17q12) and a chromosome 17 centromere (D17Z1) control probe ([employer], [employer] Two technologists score signals in (more content not included)... APTTon 12-12-2024 aPTT Coag (PPP) [Time] 34 s [facility] BASIC METABOLIC PANLon 12-12 Anion gap [Moles/Vol] 10 mmol/L Normal 5-15 [facility] Comment on above: Performed By: #### P INR, 20786-7 #### [facility] ([id number]) [address] [place] [address] #### CBCA, BMP #### [facility] ([id number]) [address] [facility], [address] [place] [address] Calcium [Mass/Vol] 9.6 mg/dL Normal 8.5-10.5 [facility] Comment on above: Performed By: #### P INR, 48250-1 #### [facility] ([id number]) [address] [place] [address] #### CBCA, BMP #### [facility] ([id number]) [address] [facility], [address] [place] [address] Chloride [Moles/Vol] 102 mmol/L Normal 98-109 [facility] Comment on above: Performed By: #### P INR, 98138-3 #### [facility] ([id number]) [address] [place] [address] #### CBCA, BMP #### [facility] ([id number]) [address] [facility], [address] [place] [address] CO2 [Moles/Vol] 28 mmol/L Normal 22-32 [facility] Comment on above: Performed By: #### P INR, 21694-8 #### [facility] ([id number]) [address] [place] [address] #### CBCA, BMP #### [facility] ([id number]) [address] [place] [address], [address] [place] [address] Creatinine [Mass/Vol] 1.18 mg/dL High 0.40-1.00 [facility] Comment on above: Result Comment: METH OD TRACEABLE TO IDMS STANDARD Performed By: #### P INR, 22370-2 #### [facility] ([id number]) [address] [place] [address] #### CBCA, BMP #### [facility] ([id number]) [address] [place] [address], [address] [place] [address] GFR/1.73 sq M.predicted among non-blacks MDRD (S/P/Bld) [Vol rate/Area] 47 mL/min/{1.73_m2} Low >59 [facility] Comment on above: Result Comment: Reported eGFR is based on the CKD-EPI 2020 equation that does not use a race coefficient. Performed By: #### P INR, 50617-5 #### [facility] ([id number]) [address] [place] [address] #### CBCA, BMP #### [facility] ([id number]) [address] [place] [address] Glucose [Mass/Vol] 80 mg/dL Normal 65-99 [facility] Comment on above: Performed By: #### P INR, 79684-3 #### [facility] ([id number]) [address] [place], [place] [address] #### CBCA, BMP #### [facility] ([id number]) [address] [place] [address] Potassium [Moles/Vol] 4.6 mmol/L Normal 3.5-5.0 [facility] Comment on above: Performed By: #### P INR, 06011-5 #### [facility] ([id number]) [address] [place], [place] [address] #### CBCA, BMP #### [facility] ([id number]) [address] [place] [address] Sodium [Moles/Vol] 140 mmol/L Normal 134-146 [facility] Comment on above: Performed By: #### P INR, 79936-1 #### [facility] ([id number]) [address] [place], [place] [address] #### CBCA, BMP #### [facility] ([id number]) [address] [place] [address] Urea nitrogen [Mass/Vol] 16 mg/dL Normal 5-27 [facility] Comment on above: Performed By: #### P INR, 84174-4 #### [facility] ([id number]) [address] [place] [address] #### CBCA, BMP #### [facility] ([id number]) [address] [facility], [address] [place] [address] Basic Metabolic Panelon 11-14 Anion gap [Moles/Vol] 10 mmol/L 5 - 15 mmol/L [facility] Calcium [Mass/Vol] 9.6 mg/dL 8.5 - 10. 5 mg/dL [facility] Chloride [Moles/Vol] 102 mmol/L 98 - 109 mmol/L [facility] CO2 [Moles/Vol] 28 mmol/L 22 - 32 mmol/L [facility] Creatinine [Mass/Vol] 1.18 mg/dL High 0.40 - 1.00 mg/dL [facility] Comment on above: METHOD TRACEABLE [facility] ST[facility] eGFR (CKD-EPI)non-race dependent 47 Low - PINF [facility] Comment on above: Reported eGFR is based on the CKD-EPI 2020 equation that does not use a race coefficient. Glucose [Mass/Vol] 80 mg/dL 65 - 99 mg/dL [facility] Interpretation and review of laboratory results Abnormal [facility] Potassium [Moles/Vol] 4.6 mmol/L 3.5 - 5.0 mmol/L [facility] Sodium [Moles/Vol] 140 mmol/L 134 - 146 mmol/L [facility] Urea nitrogen [Mass/Vol] 16 mg/dL 5 - 27 mg/dL [facility] CBC AND AUTO DIFFon 12-12-19 25 ABSOLUTE BASOPHIL 0.1 X10E9/L Normal 0.0-0.2 [facility] Comment on above: Performed By: #### P INR, 58863-4 #### [facility] ([id number]) [address] [place] [address] #### CBCA, BMP #### [facility] ([id number]) [address] [facility], [address] [place] [address] ABSOLUTE NEUTROPHIL 2.6 X10E9/L Normal 1.5-6.6 [facility] Comment on above: Performed By: #### P INR, 59758-4 #### [facility] ([id number]) [address] [place] [address] #### CBCA, BMP #### [facility] ([id number]) [address], [address] [place] [address] Basophils/100 WBC (Bld) 1.1 % Normal [facility] Comment on above: Performed By: #### P INR, 88147-2 #### [facility] ([id number]) [address] [place], [place] [address] #### CBCA, BMP #### [facility] ([id number]) [address], [address] [place] [address] Eosinophils (Bld) [#/Vol] 0.3 10*3/uL Normal 0.0-0.4 [facility] Comment on above: Performed By: #### P INR, 47195-5 #### [facility] ([id number]) [address] [place], [place] [address] #### CBCA, BMP #### [facility] ([id number]) [address] [facility], [address] [place] [address] Eosinophils/100 WBC (Bld) 6.0 % Normal [facility] Comment on above: Performed By: #### P INR, 81286-5 #### [facility] ([id number]) [address] [place], [place] [address] #### CBCA, BMP #### [facility] ([id number]) [address] [facility] [facility], [address] [place] [address] Erythrocyte distribution width (RBC) [Ratio] 13.5 % Normal 11.5-15.0 [facility] Comment on above: Performed By: #### P INR, 89955-5 #### [facility] ([id number]) [address] [place], [place] [address] #### CBCA, BMP #### [facility] ([id number]) [address], [address] [place] [address] Hematocrit (Bld) [Volume fraction] 33.9 % Low 35-47 [facility] Comment on above: Performed By: #### P INR, 18331-4 #### [facility] ([id number]) [address] [place], [place] [address] #### CBCA, BMP #### [facility] ([id number]) [address] [facility], [address] [place] [address] Hemoglobin (Bld) [Mass/Vol] 11.6 g/dL Low 11.7-15.5 [facility] Comment on above: Performed By: #### P INR, 42005-8 #### [facility] ([id number]) [address] [place] [address] #### CBCA, BMP #### [facility] ([id number]) [address] [facility] [facility], [address] [place] [address] Lymphocytes (Bld) [#/Vol] 1.7 10*3/uL Normal 1.0-3.5 [facility] Comment on above: Performed By: #### P INR, 39988-2 #### [facility] ([id number]) [address] [place], [place] [address] #### CBCA, BMP #### [facility] ([id number]) [address] [facility], [address] [place] [address] Lymphocytes/100 WBC (Bld) 33.4 % Normal [facility] Comment on above: Performed By: #### P INR, 55849-0 #### [facility] ([id number]) [address] [place], [place] [address] #### CBCA, BMP #### [facility] ([id number]) [address], [address] [place] [address] MCH (RBC) [Entitic mass] 32.6 pg Normal 27-34 [facility] Comment on above: Performed By: #### P INR, 75342-1 #### [facility] ([id number]) [address] [place], [place] [address] #### CBCA, BMP #### [facility] ([id number]) [address], [address] [place] [address] MCHC (RBC) [Mass/Vol] 34.3 g/dL Normal 32-36 [facility] Comment on above: Performed By: #### P INR, 86335-9 #### [facility] ([id number]) [address] [place] [address] #### CBCA, BMP #### [facility] ([id number]) [address], [address] [place] [address] MCV (RBC) [Entitic vol] 95 fL Normal 80-100 [facility] Comment on above: Performed By: #### P INR, 26550-2 #### [facility] ([id number]) [address] [place] [address] #### CBCA, BMP #### [facility] ([id number]) [address], [address] [place] [address] Monocytes (Bld) [#/Vol] 0.4 10*3/uL Normal 0-0.9 [facility] Comment on above: Performed By: #### P INR, 35532-1 #### [facility] ([id number]) [address] [place] [address] #### CBCA, BMP #### [facility] ([id number]) [address], [address] [place] [address] Monocytes/100 WBC (Bld) 8.3 % Normal [facility] Comment on above: Performed By: #### P INR, 42230-8 #### [facility] ([id number]) [address] [place] [address] #### CBCA, BMP #### [facility] ([id number]) [address], [address] [place] [address] Neutrophils/100 WBC (Bld) 51.2 % Normal [facility] Comment on above: Performed By: #### P INR, 45152-1 #### [facility] ([id number]) [address] [place], [place] [address] #### CBCA, BMP #### [facility] ([id number]) [address], [address] [place] [address] Platelet mean volume (Bld) [Entitic vol] 7.6 fL Normal 7-12 [facility] Comment on above: Performed By: #### P INR, 39013-5 #### [facility] ([id number]) [address] [place], [place] [address] #### CBCA, BMP #### [facility] ([id number]) [address], [address] [place] [address] Platelets (Bld) [#/Vol] 244 10*3/uL Normal 150-450 [facility] Comment on above: Performed By: #### P INR, 97449-1 #### [facility] ([id number]) [address] [place], [place] [address] #### CBCA, BMP #### [facility] ([id number]) [address], [address] [place] [address] RBC COUNT 3.56 X10E12/L Low 3.80-5.20 [facility] Comment on above: Performed By: #### P INR, 02488-1 #### [facility] ([id number]) [address] [place] [address] #### CBCA, BMP #### [facility] ([id number]) [address] [place] [address], [address] [place] [address] WBC (Bld) [#/Vol] 5.0 10*3/uL Normal 4.0-11.0 [facility] Comment on above: Performed By: #### P INR, 23146-5 #### [facility] ([id number]) [address] [place] [address] #### CBCA, BMP #### [facility] ([id number]) [address] [place] [address], [address] [place] [address] CBC auto differentialon 11-14 Basophils (Bld) [#/Vol] 0.1 10*3/uL [facility] Basophils/100 WBC (Bld) 1.1 % [facility] Eosinophils (Bld) [#/Vol] 0.3 10*3/uL [facility] Eosinophils/100 WBC (Bld) 6 % [facility] Erythrocyte distribution width (RBC) [Ratio] 13.5 % 11.5 - 15.0 % [facility] Hematocrit (Bld) [Volume fraction] 33.9 % Low 35 - 47 % [facility] Hemoglobin (Bld) [Mass/Vol] 11.6 g/dL Low 11.7 - 15.5 g/dL [facility] Interpretation and review of laboratory results Abnormal [facility] Lymphocytes (Bld) [#/Vol] 1.7 10*3/uL [facility] Lymphocytes/100 WBC (Bld) 33.4 % [facility] MCH (RBC) [Entitic mass] 32.6 pg 27 - 34 pg [facility] MCHC (RBC) [Mass/Vol] 34.3 g/dL 32 - 36 g/dL [facility] MCV (RBC) [Entitic vol] 95 fL 80 - 100 fL [facility] Monocytes (Bld) [#/Vol] 0.4 10*3/uL [facility] Monocytes/100 WBC (Bld) 8.3 % [facility] Neutrophils (Bld) [#/Vol] 2.6 10*3/uL [facility] Neutrophils/100 WBC (Bld) 51.2 % [facility] Platelet mean volume (Bld) [Entitic vol] 7.6 fL 7 - 12 fL [facility] Platelets (Bld) [#/Vol] 244 10*3/uL [facility] RBC (Bld) [#/Vol] 3.56 10*6/uL Low [facility] WBC corrected for nucl RBC Auto (Bld) [#/Vol] 5 [facility] CT ION CHEST WO CONTon 12-12 CT ION CHEST WO CONT CT ION CHEST WO CONT CT ION CHEST WO CONT CLINICAL INDICATION: Pulmonary nodules/lesions, multiple COMPARISON: CT chest 11/14/2024 TECHNIQUE: Noncontrast CT chest was performed. Coronal and sagittal reformatted images were generated and reviewed. Automated exposure control was utilized. Computer aided detection for pulmonary nodules was performed utilizing Way[employer] software. FINDINGS: Lower Neck & Thyroid: Unremarkable. [...] Carlos MD on 12/12/2024 9:50 AM Normal [facility] No Panel Informationon 12-12 [facility] PROTIME AND INRon 12-12-2024 INR Coag (PPP) [Relative time] 1.0 {INR} Normal 0.8-1.1 [facility] Comment on above: Performed By: #### P INR, 79920-7 #### [facility] ([id number]) [address] [place] [address] #### CBCMike BMP #### [facility] ([id number]) [address], [address] [place] [address] PT Coag (PPP) [Time] 11.3 s Normal 9.8-13.2 [facility] Comment on above: Performed By: #### P INR, 96280-6 #### [facility] ([id number]) [address] [place] [address] #### CBCA, BMP #### [facility] ([id number]) [address], [address] [place] [address] Protime & INRon 12-12-2024 INR Coag (PPP) [Relative time] 1 {INR} [facility] PT Coag (PPP) [Time] 11.3 s [facility] aPTT Coag (PPP) [Time]on aPTT Coag (Bld) [Time] 34 s Normal 26-37 [facility] Comment on above: Performed By: #### P INR, 96534-8 #### [facility] ([id number]) [address] [place] [address] #### CBCA, BMP #### [facility] ([id number]) [address] [place] [address], [address] [place] [address] HPon 12-09-2024 ---- -------- Attestation signed by Kimmy Rosado MD at 12/09/2024 9:23 AM I personally saw and examined the patient on the same date of service as resident/fellow Dr howard. I discussed the findings and therapeutic plan with the resident/fellow Dr Howard. I agree with the documentation, except for any edits/updates below. Teaching Physician's Revisions: None Kimmy Rosado MD, [facility] -------- H&P reviewed. The patient was examined and there are no changes to the H&P. Normal [facility] MARY JANENOTAbimael 12-09-2024 NURSNOTE RN educated pt on d/ [...] off of unit with all of belongings. Normal [facility] ALT No additional P-5'-P [Ca talytic activity/Vol]on 11-13-2024 ALT [Catalytic activity/Vol] 15 U/L Normal 0-31 [facility] Comment on above: Performed By: #### C BCA, CMP, 96309-6 #### [facility] ([id number]) [address] [place] [address] Kaley 11-13-2024 AST [Catalytic activity/Vol] 18 U/L Normal 0-41 [facility] Comment on above: Performed By: #### C BCA, CMP, 34070-2 #### [facility] ([id number]) [address] [place] [address] BASIC METABOLIC PANLon 11-13 Anion gap [Moles/Vol] 7 mmol/L Normal 5-15 [facility] Comment on above: Performed By: #### C BCA, CMP, 34050-8 #### [facility] ([id number]) [address], [facility] [address] [place] [address] Calcium [Mass/Vol] 9.7 mg/dL Normal 8.5-10.5 [facility] Comment on above: Performed By: #### C BCA, CMP, 18787-2 #### [facility] ([id number]) [address] [address] Chloride [Moles/Vol] 102 mmol/L Normal 98-109 [facility] Comment on above: Performed By: #### C BCA, CMP, 18259-6 #### [facility] ([id number]) [address] [place] [address] CO2 [Moles/Vol] 32 mmol/L Normal 22-32 [facility] Comment on above: Performed By: #### Marciano URENA CMP, 25397-1 #### [facility] ([id number]) [address], [address] [place] [address] Creatinine [Mass/Vol] 1.31 mg/dL High 0.40-1.00 [facility] Comment on above: Result Comment: METH OD TRACEABLE TO IDMS STANDARD Performed By: #### C ALDO URENA, 68156-9 #### [facility] ([id number]) [address], [address] [place] [address] GFR/1.73 sq M.predicted among non-blacks MDRD (S/P/Bld) [Vol rate/Area] 41 mL/min/{1.73_m2} Low >59 [facility] Comment on above: Result Comment: Reported eGFR is based on the CKD-EPI 2020 equation that does not use a race coefficient. Performed By: #### C ALDO URENA, 58332-9 #### [facility] ([id number]) [address], [address] [place] [address] Glucose [Mass/Vol] 98 mg/dL Normal 65-99 [facility] Comment on above: Performed By: #### Marciano URENA CMP, 35804-4 #### [facility] ([id number]) [address], [address] [place] [address] Potassium [Moles/Vol] 5.3 mmol/L High 3.5-5.0 [facility] Comment on above: Performed By: #### Marciano URENA CMP, 81277-1 #### [facility] ([id number]) [address], [address] [place] [address] Sodium [Moles/Vol] 141 mmol/L Normal 134-146 [facility] Comment on above: Performed By: #### C ALDO URENA, 50800-9 #### [facility] ([id number]) [address], [address] [place] [address] Urea nitrogen [Mass/Vol] 19 mg/dL Normal 5-27 [facility] Comment on above: Performed By: #### C BCA, CMP, 40943-8 #### [facility] ([id number]) [address], [address] [place] [address] CBC AND AUTO DIFFon 11-13-19 25 ABSOLUTE BASOPHIL 0.0 X10E9/L Normal 0.0-0.2 [facility] Comment on above: Performed By: #### Marciano URENA, CMP, 66821-8 #### [facility] ([id number]) [address], [address] [place] [address] ABSOLUTE NEUTROPHIL 2.1 X10E9/L Normal 1.5-6.6 [facility] Comment on above: Performed By: #### Marciano BCA, CMP, 53147-7 #### [facility] ([id number]) [address], [address] [place] [address] Basophils/100 WBC (Bld) 0.5 % Normal [facility] Comment on above: Performed By: #### Marciano BCA, CMP, 57613-4 #### [facility] ([id number]) [address], [address] [place] [address] Eosinophils (Bld) [#/Vol] 0.3 10*3/uL Normal 0.0-0.4 [facility] Comment on above: Performed By: #### C BCA, CMP, 87888-8 #### [facility] ([id number]) [address], [address] [place] [address] Eosinophils/100 WBC (Bld) 5.6 % Normal [facility] Comment on above: Performed By: #### C BCA, CMP, 80685-5 #### [facility] ([id number]) [address] [address] [address] [place] [address] Erythrocyte distribution width (RBC) [Ratio] 13.5 % Normal 11.5-15.0 [facility] Comment on above: Performed By: #### Marciano URENA CMP, 33032-7 #### [facility] ([id number]) [address] [place] [address] Hematocrit (Bld) [Volume fraction] 34.0 % Low 35-47 [facility] Comment on above: Performed By: #### Marciano URENA CMP, 69599-7 #### [facility] ([id number]) [address] [place] [address] Hemoglobin (Bld) [Mass/Vol] 11.4 g/dL Low 11.7-15.5 [facility] Comment on above: Performed By: #### Marciano URENA CMP, 33109-6 #### [facility] ([id number]) [address] [place] [address] Lymphocytes (Bld) [#/Vol] 1.8 10*3/uL Normal 1.0-3.5 [facility] Comment on above: Performed By: #### Marciano URENA CMP, 85440-9 #### [facility] ([id number]) [address] [place] [address] Lymphocytes/100 WBC (Bld) 38.8 % Normal [facility] Comment on above: Performed By: #### Marciano URENA CMP, 71931-7 #### [facility] ([id number]) [address] [address] [address] [place] [address] MCH (RBC) [Entitic mass] 31.9 pg Normal 27-34 [facility] Comment on above: Performed By: #### Marciano URENA, CMP, 42854-5 #### [facility] ([id number]) [address], [address] [place] [address] MCHC (RBC) [Mass/Vol] 33.5 g/dL Normal 32-36 [facility] Comment on above: Performed By: #### Marciano URENA CMP, 05547-8 #### [facility] ([id number]) [address], [address] [place] [address] MCV (RBC) [Entitic vol] 95 fL Normal 80-100 [facility] Comment on above: Performed By: #### Marciano URENA CMP, 72525-1 #### [facility] ([id number]) [address], [facility] [address] [place] [address] Monocytes (Bld) [#/Vol] 0.4 10*3/uL Normal 0-0.9 [facility] Comment on above: Performed By: #### Marciano URENA CMP, 11953-4 #### [facility] ([id number]) [address], [address] [place] [address] Monocytes/100 WBC (Bld) 9.4 % Normal [facility] Comment on above: Performed By: #### Marciano URENA CMP, 99726-3 #### [facility] ([id number]) [address], [address] [place] [address] Neutrophils/100 WBC (Bld) 45.7 % Normal [facility] Comment on above: Performed By: #### Marciano URENA CMP, 66218-1 #### [facility] ([id number]) [address], [address] [place] [address] Platelet mean volume (Bld) [Entitic vol] 7.8 fL Normal 7-12 [facility] Comment on above: Performed By: #### Marciano URENA CMP, 62630-7 #### [facility] ([id number]) [address], [address] [place] [address] Platelets (Bld) [#/Vol] 261 10*3/uL Normal 150-450 [facility] Comment on above: Performed By: #### Marciano URENA CMP, 57940-5 #### [facility] ([id number]) [address], [facility] [address] [place] [address] RBC COUNT 3.57 X10E12/L Low 3.80-5.20 [facility] Comment on above: Performed By: #### Marciano URENA CMP, 16255-5 #### [facility] ([id number]) [address], [facility] [address] [place] [address] WBC (Bld) [#/Vol] 4.5 10*3/uL Normal 4.0-11.0 [facility] Comment on above: Performed By: #### Marciano URENA CMP, 27321-9 #### [facility] ([id number]) [address], [facility] [address] [place] [address] Lipid 1996 panelon 5 Cholesterol [Mass/Vol] 215 mg/dL High 150-200 [facility] Comment on above: Performed By: #### Marciano URENA CMP, 47054-8 #### [facility] ([id number]) [address], [facility] [address] [place] [address] Cholesterol in HDL [Mass/Vol] 57 mg/dL Normal >39 [facility] Comment on above: Result Comment: HDL <40 mg/dL - High Risk HDL > or = 40mg/dL- Desirable HDL >60 mg/dL - Negative Risk Performed By: #### Marciano URENA, ALDO, 86365-1 #### [facility] ([id number]) [address], [facility] [address] [place] [address] Cholesterol in LDL [Mass/Vol] 99 mg/dL Normal <130 [facility] Comment on above: Result Comment: LDL <100 mg/dL - Desirable LDL >160 mg/dL - High Risk Performed By: #### C ROMEL, CMP, 92765-5 #### [facility] ([id number]) [address] [place] [address] Cholesterol in VLDL [Mass/Vol] 59 mg/dL High 0-30 [facility] Comment on above: Performed By: #### C BCA, CMP, 70075-1 #### [facility] ([id number]) [address] [place] [address] CHOLESTEROL:HDL 3.8 Normal 1.0-5.0 [facility] Comment on above: Performed By: #### C BCA, CMP, 90846-8 #### [facility] ([id number]) [address], [facility] [address] [place] [address] Triglyceride [Mass/Vol] 297 mg/dL High 27-150 [facility] Comment on above: Performed By: #### C BCA, CMP, 43974-0 #### [facility] ([id number]) [address], [facility] [address] [place] [address] [facility] 11-10-2024 [facility] Office Cardiology Clinic Note Reason for cardiology [...] has a past medical history of Cancer (CMS/[facility]), Coronary artery disease, Hyperlipidemia, and Hypertension. Surgical [...] 11/10/2024 s (more content not included)... Normal [facility] Office Visiton 11-10-2024 Follow-up visit [id number] Sugar Oakes 1945 F Date Provider Department Center 11/10/2024 [id number], WILIANJACKSNO [facility] Family History Problem Relation Age of Onset Cancer Mother Cancer Father Cancer Brother Family Status - Relation Status Age at Mother Father Brother Level of Service:18101 DC OFFICE/OUTPATIENT NEW [facility] 60 MINUTES Reason for Visit and Comments: Hypertension [625924] Chest Pain [074400] - Sometimes gets chest pain at rest. Hyperlipidemia [182] Coronary Artery Disease [187] - Does not take daily aspirin. She does ride her stationary bike about 10 miles every day. Shortness of Breath [533988] - Gets very SOB with exertion and has to stop and take a rest at times. Palpitations [344679] - A little bit Dizziness [871371] Normal [facility] No Panel Informationon 08-27 Lavinia Herring NP 08/28/2024 11:52 AM L Inj/Asp: R knee on 08/27/2024 12:21 PM Indications: pain Details: 21 G needle, anterolateral approach Medications: 40 mg methylPREDNISolone acetate 40 MG/ML Outcome: tolerated well, no immediate complications Site cleaned with isopropyl alcohol Procedure, treatment alternatives, risks and benefits explained, specific risks discussed. Consent was given by the patient. [facility] [employer] XR Knee - right 1 or 2 Views on 08-27-2024 Imaging Result: 08/27/2024: Standing AP and LAT of the right knee demonstrates lateral joint space narrowing with valgus alignment. There is sclerosis noted to medial and lateral tibial plateau. Impression: Left knee osteoarthritis with valgus alignment. 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 Jeffries on 08-27-2024 [facility] [employer] Work Phone: CT BRAIN WO CONTon CT BRAIN WO CONT CT BRAIN WO [...] Alberto MD on 07/19/2024 10:32 PM Normal [facility] CT CERVICAL SPINE WO CONTon 07-19-2024 [...] Stephens MD on 07/19/2024 10:44 PM Normal [facility] XR HIP RT 2-3 VIEWS W [...] Stephens MD on 07/19/2024 10:42 PM Normal [facility] XR RIBS RT 3 VWS W [...] Horace Rojas DO on 07/19/2024 11:57 PM IDominique MD have personally reviewed the image(s) and agree with and/or edited the report Finalized by Dominique Alberto MD on 07/19/2024 11:59 PM Normal [facility] URINALYSISon 06-10-2024 Bilirubin Ql (U) Negative Normal NEG [facility] Comment on above: Performed By: #### U A #### [facility] ([id number]) [address], [address] [place] [address] BLOOD/HGB Negative Normal NEG [facility] Comment on above: Performed By: #### U A #### [facility] ([id number]) [address], [address] [place] [address] Color (U) YELLOW Normal YELLOW [facility] Comment on above: Performed By: #### U A #### [facility] ([id number]) [address] [place] [address] Glucose Ql (U) Negative Normal NEG [facility] Comment on above: Performed By: #### U A #### [facility] ([id number]) [address], [address] [place] [address] Ketones Ql (U) Negative Normal NEG [facility] Comment on above: Performed By: #### U A #### [facility] ([id number]) [address] [facility], [address] [place] [address] Leukocyte esterase Test strip Ql (U) MODERATE Abnormal NEG [facility] Comment on above: Performed By: #### U A #### [facility] ([id number]) [facility], [address] [place] [address] MUCOUS PRESENT Abnormal NONE [facility] Comment on above: Performed By: #### U A #### [facility] ([id number]) [address] [facility], [address] [place] [address] Nitrite Ql (U) Negative Normal NEG [facility] Comment on above: Performed By: #### U A #### [facility] ([id number]) [facility] [place] [address] pH (U) 6.0 [pH] Normal 5.0-8.5 [facility] Comment on above: Performed By: #### U A #### [facility] ([id number]) [address] [facility], [address] [place] [address] Protein Ql (U) Negative Normal NEG [facility] Comment on above: Performed By: #### U A #### [facility] ([id number]) [address], [address] [place] [address] R.B.CELLS 1 /hpf Normal 0-5 [facility] Comment on above: Performed By: #### U A #### [facility] ([id number]) [address], [address] [place] [address] Specific gravity (U) [Rel density] 1.009 Normal 1.003-1.035 [facility] Comment on above: Performed By: #### U A #### [facility] ([id number]) [address] [place] [address] SQUAMOUS EPITHELIUM 1 /hpf Normal 0-5 [facility] Comment on above: Performed By: #### U A #### [facility] ([id number]) [address] [address] [place] [address] TURBIDITY CLEAR Normal CLEAR [facility] Comment on above: Performed By: #### U A #### [facility] ([id number]) [address] [place] [address] Urobilinogen (U) [Mass/Vol] mg/dL Normal <1.1 [facility] Comment on above: Performed By: #### U A #### [facility] ([id number]) [address] [place] [address] W.B.CELLS 3 /hpf Normal 0-5 [facility] Comment on above: Performed By: #### U A #### [facility] ([id number]) [address] [place] [address] URINE CULTUREon 06-10-2024 Bacteria identified Cx Nom (U) CULTURE RESULTS <10,000 ORGANISMS/ML NORMAL URO GENITAL CLAUDY Normal [facility] Comment on above: Performed By: #### 6 30-4 #### [facility] ([id number]) [address] [place] [address] Lipid 1996 panelon 4 Cholesterol [Mass/Vol] 231 mg/dL High 150-200 [facility] Comment on above: Performed By: #### 2 4331-1 #### [facility] ([id number]) [address], [facility] [address] [place] [address] Cholesterol in HDL [Mass/Vol] 78 mg/dL Normal >39 [facility] Comment on above: Result Comment: HDL <40 mg/dL - High Risk HDL > or = 40mg/dL- Desirable HDL >60 mg/dL - Negative Risk Performed By: #### 2 4331-1 #### [facility] ([id number]) [address], [facility] [address] [place] [address] Cholesterol in LDL [Mass/Vol] 117 mg/dL Normal <130 [facility] Comment on above: Result Comment: LDL <100 mg/dL - Desirable LDL >160 mg/dL - High Risk Performed By: #### 2 4331-1 #### [facility] ([id number]) [address] [place] [address] Cholesterol in VLDL [Mass/Vol] 36 mg/dL High 0-30 [facility] Comment on above: Performed By: #### 2 4331-1 #### [facility] ([id number]) [address], [facility] [address] [place] [address] CHOLESTEROL:HDL 3.0 Normal 1.0-5.0 [facility] Comment on above: Performed By: #### 2 4331-1 #### [facility] ([id number]) [address] [place] [address] Triglyceride [Mass/Vol] 179 mg/dL High 27-150 [facility] Comment on above: Performed By: #### 2 4331-1 #### [facility] ([id number]) [address] [place] [address] CBC AND AUTO DIFFon 03-03-20 ABSOLUTE BASOPHIL 0.0 X10E9/L Normal 0.0-0.2 [facility] Comment on above: Performed By: #### C ROMEL, CMP, 23914-7 #### [facility] ([id number]) [address], [facility] [address] [place] [address] ABSOLUTE NEUTROPHIL 1.9 X10E9/L Normal 1.5-6.6 [facility] Comment on above: Performed By: #### Marciano BCA, CMP, 84411-5 #### [facility] ([id number]) [address], [address] [place] [address] Basophils/100 WBC (Bld) 0.7 % Normal [facility] Comment on above: Performed By: #### Marciano BCA, CMP, 93242-5 #### [facility] ([id number]) [address] [place] [address] Eosinophils (Bld) [#/Vol] 0.2 10*3/uL Normal 0.0-0.4 [facility] Comment on above: Performed By: #### C BCA, CMP, 62144-9 #### [facility] ([id number]) [address], [address] [place] [address] Eosinophils/100 WBC (Bld) 4.2 % Normal [facility] Comment on above: Performed By: #### C BCA, CMP, 32505-7 #### [facility] ([id number]) [address], [address] [place] [address] Erythrocyte distribution width (RBC) [Ratio] 13.8 % Normal 11.5-15.0 [facility] Comment on above: Performed By: #### Marciano URENA CMP, 95871-7 #### [facility] ([id number]) [address], [address] [place] [address] Hematocrit (Bld) [Volume fraction] 35.6 % Normal 35-47 [facility] Comment on above: Performed By: #### Marciano URENA CMP, 96273-5 #### [facility] ([id number]) [address], [address] [place] [address] Hemoglobin (Bld) [Mass/Vol] 11.8 g/dL Normal 11.7-15.5 [facility] Comment on above: Performed By: #### Marciano URENA CMP, 39037-8 #### [facility] ([id number]) [address], [address] [place] [address] Lymphocytes (Bld) [#/Vol] 2.1 10*3/uL Normal 1.0-3.5 [facility] Comment on above: Performed By: #### Marciano URENA CMP, 48506-3 #### [facility] ([id number]) [address], [address] [place] [address] Lymphocytes/100 WBC (Bld) 45.0 % Normal [facility] Comment on above: Performed By: #### Marciano URENA CMP, 70829-3 #### [facility] ([id number]) [address], [address] [place] [address] MCH (RBC) [Entitic mass] 32.7 pg Normal 27-34 [facility] Comment on above: Performed By: #### Marciano URENA CMP, 82097-7 #### [facility] ([id number]) [address], [address] [place] [address] MCHC (RBC) [Mass/Vol] 33.2 g/dL Normal 32-36 [facility] Comment on above: Performed By: #### C ROMEL, CMP, 40944-2 #### [facility] ([id number]) [address], [address] [place] [address] MCV (RBC) [Entitic vol] 99 fL Normal 80-100 [facility] Comment on above: Performed By: #### C BCA, CMP, 82768-9 #### [facility] ([id number]) [address], [address] [place] [address] Monocytes (Bld) [#/Vol] 0.4 10*3/uL Normal 0-0.9 [facility] Comment on above: Performed By: #### Marciano BCA, CMP, 02072-2 #### [facility] ([id number]) [address] [place] [address] Monocytes/100 WBC (Bld) 9.7 % Normal [facility] Comment on above: Performed By: #### Marciano BCA, CMP, 16849-1 #### [facility] ([id number]) [address] [place] [address] Neutrophils/100 WBC (Bld) 40.4 % Normal [facility] Comment on above: Performed By: #### Marciano BCA, CMP, 70004-6 #### [facility] ([id number]) [address] [place] [address] Platelet mean volume (Bld) [Entitic vol] 8.3 fL Normal 7-12 [facility] Comment on above: Performed By: #### Marciano BCA, CMP, 95320-8 #### [facility] ([id number]) [address], [address] [place] [address] Platelets (Bld) [#/Vol] 240 10*3/uL Normal 150-450 [facility] Comment on above: Performed By: #### Marciano BCA, CMP, 64749-6 #### [facility] ([id number]) [address], [address] [place] [address] RBC COUNT 3.61 X10E12/L Low 3.80-5.20 [facility] Comment on above: Performed By: #### C BCA, CMP, 80766-3 #### [facility] ([id number]) [address], [address] [place] [address] WBC (Bld) [#/Vol] 4.6 10*3/uL Normal 4.0-11.0 [facility] Comment on above: Performed By: #### C BCA, CMP, 29882-1 #### [facility] ([id number]) [address], [address] [place] [address] COMPREHENSIVE METABOLIC PANE Brad 03-03-2024 Albumin [Mass/Vol] 4.2 g/dL Normal 3.2-5.3 [facility] Comment on above: Performed By: #### C BCA, CMP, 78942-9 #### [facility] ([id number]) [address], [address] [place] [address] ALP [Catalytic activity/Vol] 70 U/L Normal 39-130 [facility] Comment on above: Performed By: #### C BCA, CMP, 04048-7 #### [facility] ([id number]) [address], [address] [place] [address] ALT [Catalytic activity/Vol] 13 U/L Normal 0-31 [facility] Comment on above: Performed By: #### C BCA, CMP, 74131-3 #### [facility] ([id number]) [address], [address] [place] [address] Anion gap [Moles/Vol] 8 mmol/L Normal 5-15 [facility] Comment on above: Performed By: #### C BCA, CMP, 32051-0 #### [facility] ([id number]) [address], [address] [place] [address] AST [Catalytic activity/Vol] 15 U/L Normal 0-41 [facility] Comment on above: Performed By: #### C BCA, CMP, 92173-0 #### [facility] ([id number]) [address], [address] [place] [address] Bilirubin [Mass/Vol] 0.4 mg/dL Normal 0.3-1.2 [facility] Comment on above: Performed By: #### C BCA, CMP, 00998-3 #### [facility] ([id number]) [address], [address] [place] [address] Calcium [Mass/Vol] 9.1 mg/dL Normal 8.5-10.5 [facility] Comment on above: Performed By: #### C BCA, CMP, 04344-3 #### [facility] ([id number]) [address], [address] [place] [address] Chloride [Moles/Vol] 102 mmol/L Normal 98-109 [facility] Comment on above: Performed By: #### C BCA, CMP, 85334-7 #### [facility] ([id number]) [address], [address] [place] [address] CO2 [Moles/Vol] 30 mmol/L Normal 22-32 [facility] Comment on above: Performed By: #### C BCA, CMP, 17438-5 #### [facility] ([id number]) [address], [address] [place] [address] Creatinine [Mass/Vol] 1.08 mg/dL High 0.40-1.00 [facility] Comment on above: Result Comment: METH OD TRACEABLE TO IDMS STANDARD Performed By: #### C BCA, CMP, 48216-4 #### [facility] ([id number]) [address] [place] [address] GFR/1.73 sq M.predicted among non-blacks MDRD (S/P/Bld) [Vol rate/Area] 52 mL/min/{1.73_m2} Low >59 [facility] Comment on above: Result Comment: Reported eGFR is based on the CKD-EPI 2020 equation that does not use a race coefficient. Performed By: #### C ALDO URENA, 53721-7 #### [facility] ([id number]) [address] [place] [address] Glucose [Mass/Vol] 93 mg/dL Normal 65-99 [facility] Comment on above: Performed By: #### Marciano URENA CMP, 83359-4 #### [facility] ([id number]) [address], [facility] [address] [place] [address] Potassium [Moles/Vol] 4.7 mmol/L Normal 3.5-5.0 [facility] Comment on above: Performed By: #### Marciano URENA CMP, 25469-7 #### [facility] ([id number]) [address] [place] [address] Protein [Mass/Vol] 6.9 g/dL Normal 6.0-8.0 [facility] Comment on above: Performed By: #### Marciano URENA CMP, 29427-3 #### [facility] ([id number]) [address] [place] [address] Sodium [Moles/Vol] 140 mmol/L Normal 134-146 [facility] Comment on above: Performed By: #### C ROMEL CMP, 80001-9 #### [facility] ([id number]) [address] [place] [address] Urea nitrogen [Mass/Vol] 16 mg/dL Normal 5-27 [facility] Comment on above: Performed By: #### C BCA CMP, 79650-6 #### [facility] ([id number]) [address] [place] [address] Lipid 1996 panelon 4 Cholesterol [Mass/Vol] 299 mg/dL High 150-200 [facility] Comment on above: Performed By: #### Marciano URENA CMP, 36427-8 #### [facility] ([id number]) [address] [place] [address] Cholesterol in HDL [Mass/Vol] 52 mg/dL Normal >39 [facility] Comment on above: Result Comment: HDL <40 mg/dL - High Risk HDL > or = 40mg/dL- Desirable HDL >60 mg/dL - Negative Risk Performed By: #### Marciano URENA CMP, 46331-6 #### [facility] ([id number]) [address] [place] [address] Cholesterol in LDL [Mass/Vol] 169 mg/dL High <130 [facility] Comment on above: Result Comment: LDL <100 mg/dL - Desirable LDL >160 mg/dL - High Risk Performed By: #### Marciano URENA CMP, 22246-1 #### [facility] ([id number]) [address] [place] [address] Cholesterol in VLDL [Mass/Vol] 78 mg/dL High 0-30 [facility] Comment on above: Performed By: #### Marciano URENA CMP, 16446-5 #### [facility] ([id number]) [address] [place] [address] CHOLESTEROL:HDL 5.8 High 1.0-5.0 [facility] Comment on above: Performed By: #### C BCA, [facility], 68458-5 #### [facility] ([id number]) [address] [place] [address] Triglyceride [Mass/Vol] 390 mg/dL High 27-150 [facility] Comment on above: Performed By: #### C BCA, [facility], 75712-9 #### [facility] ([id number]) [address] [place] [address] MR LUMBAR SPINE WO CONTon MR LUMBAR [...] Guzman MD on 11/17/2023 10:56 AM Normal [facility] XR ANKLE ABHISHEK MIN 3 VIEWSon [...] by: RAMSES GONGORA Date: 2022-02-01 11:16 Normal [facility] CT ANKLE RT WO CONon 022 CT [...] without overlying cortical disruption. Electronically authenticated by: NORBERTO IVAN Date: 2021-12-19 11:38 Normal [facility] XR ANKLE ABHISHEK MIN 3 [...] by: NORBERTO IVAN Date: 2021-11-02 16:25 Normal [facility] Cardiovascular Lab Reporton 05-30-2019 Cardiovascular Lab Report [facility] Patient Name: Margy Oakes [facility] MR #: [id number] Physician: Pepe Maloney M.D. Medicine Service Date: 05/29/2019 Division of Birthdate: 1945 Cardiology Room #: Adult Cardiovascular Services [address] [address] Cardiovascular Laboratory Report INDICATION: The patient is [...] signed informed consent. She was brought to labor relations director in a fasting state. The right groin area was prepped and draped in usual fashion. Using micropuncture technique, the right common femoral artery was accessed. The inner cannula was advanced. Limited femoral angiography was performed followed by upsizing to a 6-Bermudian x 11 cm sheath. Access was obtained using the same technique in the right common femoral vein and a 6-Bermudian x 11 cm sheath was placed. A 6-Bermudian Pena catheter was used for right heart catheterization with measurement of pressures and calculation of cardiac output using the estimated Anila method. Pena catheter was removed. Bilateral selective coronary angiography was then performed using 6-Bermudian JL4 and JR4 diagnostic catheters. Catheters were removed. Procedure was concluded. The right femoral arteriotomy was managed with a 6-Bermudian Angio-Seal device with good hemostasis. The access [...] Chavez M.D. Date Trans: 05/29/2019 10:55 P/sanaz [id number] cc: Lucia Esteban M.D. [address] [facility] [address] [facility] Otheron 01-18-1999 CONVERTED ELECTRONIC SIGNATURE JAYE ZABAAL SCIENCE TUTOR (Electronic signature on file) Final Signed Out: 01/18/1999 16:25 [facility] CONVERTED FINAL DIAGNOSIS SPECIMEN ADEQUACY SATISFACTORY FOR CYTOLOGIC EVALUATION BUT LIMITED BY: NO ENDOCERVICAL COMPONENTS. GENERAL CATEGORIZATION WITHIN NORMAL LIMITS HORMONAL EVALUATION HORMONAL PATTERN COMPATIBLE WITH AGE AND HISTORY [facility] CONVERTED ORDERING PROVIDER Ordering Provider: SHEA REYES [facility] CONVERTED PAP DISCLAIMER The Pap test serves as a screening tool for early detection of cervical cancer. The Pap test does not represent a final diagnostic test for cervical cancer. Furthermore, the Pap test was not designed to screen for other malignancies (endometrial, ovarian cancer, etc....). False negatives and false positives have occurred. If clinically indicated, further patient evaluation is recommended. [facility] Vital Signs Date Time Vital Sign Value Performing Clinician So pineda 02-19-2025 10:51-0400 Body height 152.4 cm María Thapa DO [facility] 02-19-2025 10:51-0400 Body mass index (BMI) [Ratio] 34.98 kg/m2 María Thapa DO [facility] 02-19-2025 10:51-0400 Body weight 81.24 kg María Thapa DO [facility] 02-19-2025 10:51-0400 Diastolic blood pressure 50 mm[Hg] María Thapa DO [facility] 02-19-2025 10:51-0400 Heart rate 60 /min María Thapa DO Work [facility] 02-19-2025 10:51-0400 SaO2% (BldA) [Mass fraction] 98 % María Thapa DO Work [facility] 02-19-2025 10:51-0400 Systolic blood pressure 132 mm[Hg] María Thapa DO Work [facility]: [facility] 12-22-2024 09:09-0500 Body height 157.5 cm [facility] 12-22-2024 09:09-0500 Body mass index (BMI) [Ratio] 32.92 kg/m2 [facility] 12-22-2024 09:09-0500 Body weight 81.65 kg [facility] 12-11-2024 12:08-0500 Body height 157.5 cm María Thapa DO Work Phone: [facility] 12-11-2024 12:08-0500 Body mass index (BMI) [Ratio] 33 kg/m2 María Thapa DO Work Phone: [facility] 12-11-2024 12:08-0500 Body weight 81.83 kg María Thapa DO [facility] 12-11-2024 12:08-0500 Diastolic blood pressure 49 mm[Hg] María Thapa DO [facility] 12-11-2024 12:08-0500 Heart rate 53 /min María Thapa DO Work [facility] 12-11-2024 12:08-0500 SaO2% (BldA) [Mass fraction] 99 % María Thapa DO Work [facility] 12-11-2024 12:08-0500 Systolic blood pressure 123 mm[Hg] María Thapa DO Work [facility] 01-11-2024 09:17-0500 Body height 157.5 cm Vicenta Fernandes MD [facility] 01-11-2024 09:17-0500 Body mass index (BMI) [Ratio] 32.19 kg/m2 Vicenta Fernandes MD Work [facility]: [facility] 01-11-2024 09:17-0500 Body weight 79.83 kg Vicenta Fernandes MD Work Phone: [facility] Encounters Encounter Date Encounter Type Care Provider Facility Start: 03-28-2025 End: 03-28-2025 Clinisync Result Encounter Brannon DAVILA Work Phone: [facility] External Department Unsolicited Start: 03-28-2025 End: 03-28-2025 Clinisync Result Encounter Brannon DAVILA Work Phone: [facility] Unsolicited Start: 02-20-2025 End: 02-20-2025 Orders Only María Thapa DO Work Phone: [facility] Comment on above: Moderate persistent asthma without complication (Primary Dx) Start: 02-19-2025 End: 02-19-2025 Office outpatient visit 25 minutes María Thapa DO Work Phone: [facility] Comment on above: Pulmonary nodules/le sions, multiple (Primary Dx); Dyspnea on exertion; Moderate persistent asthma without complication Start: 02-19-2025 End: 02-19-2025 ambulatory MARÍA Beck ELSTON [facility] Start: 02-12-2025 End: 02-16-2025 Telephone encounter Patricia SEGUNDO [facility] Start: 02-06-2025 End: 02-06-2025 Bamboo flowsheet Brannon Carranza PA Work Phone: [facility] Start: 02-06-2025 End: 02-06-2025 Bamboo flowsheet Brannon Carranza PA Work Phone: [facility] Start: 02-06-2025 End: 02-06-2025 Office outpatient visit 15 minutes Brannon DAVILA Work Phone: [facility] Comment on above: Acute pain of right knee (Primary Dx); Arthritis of right knee Start: 02-06-2025 End: 02-06-2025 ambulatory BRANNON CARRANZA Not Available Start: 01-21-2025 End: 01-21-2025 ambulatory [facility] Start: 12-25-2024 End: 12-25-2024 Evaluation and management of inpatient TAMER S SONDRA [facility] Start: 12-22-2024 End: 12-22-2024 Evaluation and management of inpatient LUCIA A ESTEBAN [facility] Start: 12-22-2024 End: 12-22-2024 Admission to [facility] Phone Call Provider 3 [facility] Start: 12-16-2024 End: 12-16-2024 Telephone encounter Franca Regalado RN Work Phone: [facility] Start: 12-12-2024 [facility]: 12-12-2024 End: 12-12-[address] [facility] Kiran [facility] Start: 12-11-2024 End: 12-16-2024 Patient encounter status Renae Torres RN [facility] Start: 12-11-2024 End: 12-11-2024 Refill María Thapa DO Work Phone: [facility] Start: 12-11-2024 End: 12-16-2024 Telephone encounter Renae Torres RN [facility] Start: 12-11-2024 End: 12-11-2024 ambulatory [facility] Start: 12-11-2024 End: 12-11-2024 Office outpatient new 60 minutes María Thapa DO Work Phone: [facility] Comment on above: Pulmonary nodules/le sions, multiple (Primary Dx); Pulmonary nodule Start: 12-09-2024 End: 12-09-2024 ambulatory [facility] Start: 12-04-2024 ambulatory [facility] Start: 12-02-2024 ambulatory [facility] Start: 11-13-2024 End: 11-13-2024 ambulatory [facility] Start: 11-13-2024 Encounter for other preprocedural examination [facility] Start: 11-10-2024 End: 11-10-2024 ambulatory [facility] Start: 10-24-2024 End: 10-24-2024 ambulatory [facility] Start: 08-27-2024 End: 08-27-2024 Mercedes flowslyric Herring COMMERCIAL LITIGATION ATTORNEY Work Phone: [facility] Start: 08-27-2024 End: 08-27-2024 Bamboo flowslyric Herring NP Work Phone: [facility] Start: 08-27-2024 End: 08-27-2024 ambulatory LAVINIA HERRING Not Available Start: 08-27-2024 End: 08-27-2024 Office outpatient visit 25 minutes Lavinia Herring COMMERCIAL LITIGATION ATTORNEY Work Phone: [facility] Comment on above: Primary osteoarthrit is of right knee (Primary Dx); Right knee pain, unspecified chronicity Start: 07-19-2024 End: 07-20-2024 Emergency department patient visit [facility] Start: 07-19-2024 End: 07-20-2024 Emergency department patient visit [facility] Start: 06-10-2024 End: 06-10-2024 ambulatory [facility] Start: 05-19-2024 End: 05-19-2024 [facility] Start: 04-16-2024 End: 04-16-2024 ambulatory LAVINIA HERRING Not Available Start: 03-03-2024 End: 03-03-2024 [facility] Start: 01-11-2024 End: 01-11-2024 Office outpatient visit 15 minutes Vicenta Fernandes MD [facility] Phone: [facility] Comment on above: Neuropathy (Primary Dx) Start: 11-16-2023 End: 11-16-2023 ambulatory VICENTA Mckeon [facility] Start: 11-09-2023 Telephone encounter Estrella Brown LPN [facility] Comment on above: MRI Start: [...] End: 05-30-2019 Patient encounter procedure PROVIDER UNKNOWN Facility:[facility] Start: 01-03-1999 End: 01-03-1999 Patient encounter procedure Conversion Santa Aguilar [facility] Start: 01-03-1999 Results Only Conversion Santa Aguilar [facility] Procedures Date Procedure Procedure Detail Performing Clinician Start: 03-28-2025 [facility] C[facility]URE - [facility] Massimo ttfallon DAVILA Work Phone: Start: 02-19-2025 Follow-up visit Follow-up MARÍA THAPA Start: 02-06-2025 Arthrocentesis aspir &/inj major jt/bursa w/o us Brannon DAVILA Work Phone: Start: 08-27-2024 Arthrocentesis aspir &/inj major jt/bursa w/o us Lavinia Herring NP Work Phone: Start: 08-27-2024 Radiologic examinati on knee 1/2 views Lavinia Herring COMMERCIAL LITIGATION ATTORNEY Work Phone: Start: 01-03-1999 CONVERTED CYTOLOGY VIDEOTAPE EDITOR Conversion Santa Aguilar Plan of Treatment Date Care Activity Detail Author Start: 02-19-2026 Tobacco Screening Tobacco Screening [facility] Start: 12-25-2025 Tobacco Screening Tobacco Screening [facility] Start: 12-11-2025 Tobacco Screening Tobacco Screening [facility] Start: 07-13-2025 Influenza vaccination Influenza Vacc ine [facility] Start: 05-21-2025 End: 05-21-2025 Patient encounter procedure 05/21/2025 2:30 PM EDT Office Visit [facility] [place] [address] María Thapa, DO [address] [address] [facility] Start: 02-19-2025 End: 02-19-2025 Patient encounter procedure 02/19/2025 10:45 AM EDT Office Visit [facility] [address] [place] [address] María Thapa, DO [address] [address] [facility] Start: 02-06-2025 End: 02-06-2025 Patient encounter procedure 02/06/2025 11:30 AM EDT Office Visit [facility] [address] [facility] [place] [id number] Brannon Carranza, PA [address] [place] [id number] Acute pain of right knee (Primary Dx) [facility] Comment on above: Acute pain of right knee (Primary Dx) Start: 01-06-2025 End: 01-06-2025 Admission to same day surgery center 01/06/2025 1:00 PM EST - 01/06/2025 2:30 PM EST Surgery [facility] - Endoscopy [address] [place] [address] María Thapa, DO [address] [address] ION ROBOTIC BRONCOSCOPY [06134 (CPT )] [facility] Comment on above: ION ROBOTIC BRONCOSC OPY [70356 (CPT )] Start: 01-06-2025 End: 01-06-2025 [facility] incl fluor gdnce dx w/cell washg spx [facility] Start: 01-06-2025 Subsequent hospital visit by physician 01/06/2025 1:00 PM EST Hospital Encounter [facility]oscopy [address] [place] [phone] María Thapa DO [address] [facility] [place] [address] [facility] Start: 12-25-2024 End: 12-25-2024 Admission to same day surgery center 12/25/2024 1:15 PM EST - 12/25/2024 3:00 PM EST Surgery [facility]oscopy [address] [place] [address] Isidra Saeed MD [address] [facility], [address] [address] ION ROBOTIC BRONCOSCOPY [72088 (CPT )] [facility] Comment on above: ION ROBOTIC BRONCOSC OPY [49460 (CPT )] Start: 12-25-2024 End: 12-25-2024 [facility] incl fluor gdnce dx w/cell washg spx [facility] Start: 12-25-2024 Subsequent hospital visit by physician 12/25/2024 1:15 PM EST Hospital Encounter [facility]oscopy [address] [place] [address] Isidra Saeed MD [address] [facility], [address] [address] [facility] Start: 12-22-2024 End: 12-22-2024 Admission to establishment 12/22/2024 8:30 AM EST Support Visit [facility] On [address] [address] [facility] Start: 12-12-2024 End: 12-12-2024 Patient encounter procedure 12/12/2024 9:30 AM EST Appointment [facility] [address] [place] [address] María Thapa, DO [address] [address] [facility] Start: 12-11-2024 End: 12-11-2025 CT Chest limited WO contrast CT Ion Chest without contrast Imaging STAT Pulmonary nodules/lesions, multiple Expected: 12/11/2024, Expires: 12/11/2025 [facility] Work Phone: Comment on above: Expected: 12/11/2024 , Expires: 12/11/2025 Start: 10-26-2024 Adult BMI Screening Adult BMI Screen ing [facility] Start: 10-26-2024 Tobacco Screening Tobacco Screening [facility] Start: 07-13-2024 COVID-19 Vaccine ( season) COVID-19 Vaccine ( season) [facility] Start: 07-13-2024 Influenza vaccination Influenza Vacc ine (#1) [facility] Start: 11-09-2023 End: 11-09-2024 MR Lumbar spine WO contrast MR lumbar spine without contrast Imaging Routine Neuropathy Expected: 11/09/2023, Expires: 11/09/2024 [facility] Work Phone: Comment on above: Expected: 11/09/2023 , Expires: 11/09/2024 Start: 07-13-2023 COVID-19 Vaccine ( season) COVID-19 Vaccine ( season) [facility] Start: 07-13-2023 Influenza vaccination Influenza Vacc ine [facility] Start: 07-25-2022 ambulatory Ambulatory Facility:H 1 Start: 07-13-2020 Influenza vaccination INFLUENZA (#1) [facility] Start: 10-09-2018 Pneumococcal Vaccine : 65+ Years (2 of 2 - PCV) Pneumococcal Vaccine: 65+ Years (2 of 2 - PCV) [facility] Start: 07-19-2016 Administration of varicella zoster vaccine Zoster (Shingles) Vaccine (2 of 3) [facility] Start: 01-18-2009 ADVANCE DIRECTIVE DISCUSSION ADVANCE DIRECTIVE DISCUSSION [facility] Start: 01-18-2009 BONE DENSITY BONE DENSITY [facility] Start: 01-18-2009 Fall Risk Screening Fall Risk Screen ing [facility] Start: 01-18-2009 PNEUMOVAX AGE 65 AND OVER WITH 5YR LOOKBACK (#1) PNEUMOVAX AGE 65 AND OVER WITH 5YR LOOKBACK (#1) [facility] Start: 01-18-1994 SHINGRIX VACCINE (1 of 2) SHINGRIX VACCINE (1 of 2) [facility] Start: 01-18-1994 Tuberculosis screening COLOREC ROMI CANCER SCREENING,SEE MODIFIER [facility] Start: 01-18-1989 DIABETES SCREEN DIABETES SCREEN [facility] Start: 01-18-1989 LIPID SCREEN LIPID SCREEN [facility] Start: 01-18-1963 DTaP,Tdap and Td Vaccines (1 - Tdap) DTaP,Tdap and Td Vaccines (1 - Tdap) [facility] Start: 01-18-1963 Urine microalbumin profile DTAP,TDAP,TD (1 - Tdap) [facility] Start: 01-18-1962 Adult BMI Follow Up Plan Adult BMI Follow Up Plan [facility] Start: 01-18-1962 HEPATITIS C SCREENING HEPATITIS C SC REENING [facility] Start: 1956 Depression Screening Depression Scre ening [facility] Start: 1944 Medicare Annual Well ness Visit Medicare Annual Wellness Visit [facility] End: 02-19-2026 Eosinophil count Eosinophil count Lab Routine Moderate persistent asthma without complication 1 Occurrences starting 02/19/2025 until 02/19/2026 [facility] Comment on above: 1 Occurrences starti ng 02/19/2025 until 02/19/2026 End: 02-19-2026 Respiratory allergy panel Respiratory allergy panel Lab Routine Moderate persistent asthma without complication 1 Occurrences starting 02/19/2025 until 02/19/2026 [facility] Work Phone: Comment on above: 1 Occurrences starti ng 02/19/2025 until 02/19/2026 URINE CULTURE - [facility] URINE CULTU RE - [facility] Lab Routine 03/28/2025 5:58 PM EDT [facility] Work Phone: Immunizations Immunization Date Immunization Notes Care Provider Chicho felix 10-22-2024 influenza virus vaccine, unspecified formulation Patricia Velazquez [facility] 09-09-2020 influenza virus vaccine, unspecified formulation Estrellayohana Brown MANAGER CAFE [facility] 05-24-2016 zoster vaccine, unspecified formulation Estrella Brown MANAGER CAFE [facility] Payers Date Payer Category Payer Unknown [id number] 2010 Managed Care Other (unspecified) [facility] [id number] 2010 Private Health Insurance [id number] .[id number] 2009 Medicare [id number]. [id number] .[id number] 1959 Medicare [id number] 1959 Unknown [id number] 1944 Unknown [id number] 2.16.840.1.779208.3.579.2 .647 1944 Unknown [id number] 2.16.840.1.739744.3.579.2 .593 1944 Unknown [id number] 2.16.840.1.665318.3.579.2 .593 1944 Unknown [id number] 2.16.840.1.929358.3.579.2 .593 1944 Unknown [id number] 2.16.840.1.501828.3.579.2 .593 1944 Unknown [id number] 2.16.840.1.242251.3.579.2 .593 1944 Unknown [id number] 2.16.840.1.285801.3.579.2 .593 1944 Unknown [id number] 2.16.840.1.948897.3.579.2 .593 1944 Unknown [id number] 2.16.840.1.067357.3.579.2 .593 1944 Unknown [id number] 2.16840.1.371164.3.579.2 .593 1944 Unknown [id number] 2.16.840.1.148249.3.579.2 .593 1944 Unknown [id number] 2.16.840.1.811950.3.579.2 .593 1944 Unknown [id number] 2.16.840.1.358136.3.579.2 .593 1944 Unknown [id number] 2.16.840.1.810842.3.579.2 .1286 1944 Unknown [id number] 2.16.840.1.240421.3.579.2 .1286 1944 Unknown [id number] 2.16.840.1.358832.3.579.2 .128 1944 Unknown [id number] 2.16.840.1.794637.3.579.2 .1286 1944 Unknown [id number] 2.16.840.1.997503.3.579.2 .128 1944 Unknown [id number] 2.16.840.1.635790.3.579.2 .128 1944 Unknown [id number] 2.16.840.1.969854.3.579.2 .1285 1944 Unknown [id number] 2.16.840.1.981466.3.579.2 .128 1944 Unknown [id number] 2.16.840.1.409877.3.579.2 .1285 1944 Unknown [id number] 2.16.840.1.018856.3.579.2 .1285 1944 Unknown [id number] 2.16.840.1.771146.3.579.2 .1285 1944 Unknown [id number] 2.16.840.1.181740.3.579.2 .1285 1944 Unknown [id number] 2.16.840.1.541107.3.579.2 .128 1944 Unknown [id number] 2.16.840.1.348987.3.579.2 .1258 1944 Unknown [id number] 2.16.840.1.298152.3.579.2 .1258 1944 Unknown [id number] 2.16.840.1.539146.3.579.2 .1258 1944 Unknown [id number] 2.16.840.1.720403.3.579.2 .1258 1944 Unknown [id number] 2.16.840.1.034662.3.579.2 .128 1944 Unknown [id number] 2.16.840.1.247911.3.579.2 .1285 1944 Unknown [id number] 2.16.840.1.161044.3.579.2 .1285 1944 Unknown [id number] 2.16.840.1.151893.3.579.2 .1286 1944 Unknown [id number] 2.16.840.1.277434.3.579.2 .1286 1944 Unknown [id number] 2.16.840.1.381389.3.579.2 .1286 Social History Date Type Detail [facility] Sex Assigned At Not on file [facility] Start: 09-19-2023 End: 04-16-2024 Tobacco smoking status NHIS Never smoked tobacco [facility] Start: 09-19-2023 End: 04-16-2024 Tobacco use and exposure Smokeless tobacco non-user [facility] Start: 04-16-2024 End: 02-06-2025 Alcoholic beverage intake Current drinker of alcohol (finding) [facility] Start: 04-16-2024 End: 02-06-2025 History of Social function [facility] Start: 04-16-2024 End: 02-06-2025 Tobacco use panel [facility] Start: 1945 Sex assigned at Female [facility] Start: 08-01-2020 Gender identity Identifies as female gender (finding) [facility] Start: 04-05-2024 Sexual orientation Heterosexual (finding) [facility] Adolescent depressio n screening assessment 0 [facility] Start: 06-17-2015 Sex Female (finding) [facility] Medical Equipment Procedure Code Equipment Code Equipment Origin al Text Equipment Identifier Dates Cement Bn Palaco s Radpq 40g Rpl [id number] - Sn/A - [id number] Start: 01-15-2018 Cmpt Fem D Kn Lt Lpsflx Gndr Rpl [id number] - Sn/A - [id number] Start: 01-15-2018 Ins Artc 3-4 C-D 10mm Kn Fx - Sn/A - [id number]/A, [id number] FDA Start: 01-15-2018 Cmpt Ptlr 32mm N xgn Alply Rpl [id number] - Sn/A - [id number]/SN/A, [id number] FDA Start: 01-15-2018 Plt Tib [id number] m Nxgn Kn Cmnt Rpl [id number] + [id number] - Sn/A - [id number] Start: 01-15-2018 Clinical Notes 02-14-2022 to 02-20-2025 Telephone Encounter - RATNA Frank - 02/20/2025 10:21 AM EDTTelephone Encounter - RATNA Frank - 02/20/2025 10:21 AM EDTSdestiny Thapa DO - 02/20/2025 7:39 AM EDTPatient Instructions Note Date & Type Note Facility 02-20-2025 Miscellaneous Notes Home nebulizer and tubing kit orders with supportive documentation faxed to [facility]. documented in this encounter [facility] 02-20-2025 Telephone encounter Note Home nebulizer and tubing kit orders with supportive documentation [place] [facility] [facility] 02-20-2025 History of Present illness Narrative Notification from pharmacy received that advair diskus not covered and Breo preferred. Rx for Breo sent to pharmacy documented in this encounter [facility] 02-19-2025 History of Present illness Narrative [facility] Pulmonary And Sleep Progress Note Patient - [...] months. She recently had a trip to [facility] and had to stop frequently to rest [...] Meds Medications Reviewed. Dr. María Thapa DO. [facility] Office: [phone] documented in this encounter [facility] 02-19-2025 Instructions María Thapa DO - 02/19/2025 10:45 AM EDT [...] vial of medicine. documented in this encounter [facility] 02-12-2025 Miscellaneous Notes Babcock Tester received message from requesting that we add patient over lunch on 02/19/2025, as Dr. Vazquez would like patient to see SE. Babcock Tester called patient and left voicemail asking for patient to return our call at her earliest convenience to get her scheduled. Babcock Tester received message from requesting that we add patient over lunch on 02/19/2025, as Dr. Vazquez would like patient to see SE. Babcock Tester called patient and left voicemail asking for patient to return our call at her earliest convenience to get her scheduled. Patient called office back and scheduled an appointment with SE on 02/19/2025 at 10:45am in [place]. documented in this encounter [facility] 02-12-2025 Telephone encounter Note Babcock Tester received message from requesting that we add patient over lunch on 02/19/2025, as Dr. Vazquez would like patient to see SE. Babcock Tester called patient and left voicemail asking for patient to return our call at her earliest convenience to get her scheduled. [facility] 02-12-2025 Telephone encounter Note Babcock Tester received message from requesting that we add patient over lunch on 02/19/2025, as Dr. Vazquez would like patient to see SE. Babcock Tester called patient and left voicemail asking for patient to return our call at her earliest convenience to get her scheduled. [facility] 02-12-2025 Telephone encounter Note Patient called office back and scheduled an appointment with SE on 02/19/2025 at 10:45am in [place]. [facility] 02-06-2025 History of Present illness Narrative Associated Order(s): L Inj/Asp: R knee Post-Procedure Diagnose(s): Arthritis of right knee Images from the original note were not included. HISTORY OF PRESENT ILLNESS: EST PT Margy Oakes is an 80 y.o. @ female. (EST PT, LAST VISIT WITH LAVINIA) RT KNEE PAIN, 3 YRS (2021)- NOTES GRADUAL INCREASE WITH PAIN- PT IS LEAVING FOR [place] ON SUNDAY- REQUESTING CORTISONE INJ PT RECENTLY [...] alleviate symptoms before her upcoming trip to [place]. She will contact the clinic on an as-needed basis if her symptoms worsen for reevaluation upon her return. There is no calf tenderness, and she has previously found relief from injections. If there is no improvement, consider industry operations investigator bracing. PROCEDURE An injection was administered today to alleviate right knee pain. Questions answered in laymen terms at the bedside. The diagnosis, home exercise plan and any ongoing restrictions/ recommendations reviewed. If unable to be reached in office, I recommend evaluation at nearest Emergency Room if any symptoms worsened or new symptoms develop for requiring urgent evaluation. documented in this encounter [facility] 01-21-2025 Note [facility] Cardiology Clinic Note Reason for cardiology [...] She never been a smoker 11/10/2024 Margy Oakes is a 80 y.o. female history of [...] 11/13/2024 Cholesterol 215, (more content not included)... [facility] 12-22-2024 Instructions Formatting of th is note might be different from the original. Your surgery/procedure is scheduled at [facility] on 12/25/2024 at 1315 Arrival Time 1115 [facility] Address: [address] [place] [address] Park in P1 Parking lot located on [facility]. Report to the Entrance B. Check in at the information desk the surgery. The waiting room located on the second floor. If you have any questions prior to surgery, please call Pre-Admission Clinic at [phone] between 7:30 am and 4:30 pm Sunday through Sunday. If you have questions the morning of surgery, please call the Pre-op Department at [phone]. Notify your SURGEON if you develop any [...] weekly, hold 1 week prior to surgery: Dhruvunrenatoro . Blood thinners: Please contact your prescribing [...] piercings ,hair extensions that contain metal, nail gabonese, make-up, and contact lens. You may brush [...] RIGHTS AND RESPONSIBILITIES As a patient at [facility], you have the right to: Receive medical care and be informed of who is taking care of you Be treated with dignity and respect Have a family member/sales representative meats of choice and your physician notified of your admission Receive information and actively participate in decisions about your care and treatment Refuse care, treatment and services Decide who may provide your support and speak for you Access rastafari and spiritual services Participate in ethical issues [...] of hospital charges and payment methods Patient/patient sales representative meats responsibilities are to: Provide information about health [...] RIGHTS AND RESPONSIBILITIES As a patient at [facility], you have the right to: Receive medical care and be informed of who is taking care of you Be treated with dignity and respect Have a family member/sales representative meats of choice and your physician notified of your admission Receive information and actively participate in decisions about your care and treatment Refuse care, treatment and services Decide who may provide your support and speak for you Access rastafari and spiritual services Participate in ethical issues [...] of hospital charges and payment methods Patient/patient sales representative meats responsibilities are to: Provide information about health [...] Control department if you have any questions. [facility] 12-22-2024 Miscellaneous Notes Your surgery/procedure is scheduled at [facility] on 12/25/2024 at 1315 Arrival Time 1115 [facility] Address: [address] [place] [address]. [address] in Parking lot located on [facility]. Report to the Entrance B. Check in at the information desk the surgery. The waiting room located on the second floor. If you have any questions prior to surgery, please call Pre-Admission Clinic at [phone] between 7:30 am and 4:30 pm Sunday through Sunday. If you have questions the morning of surgery, please call the Pre-op Department at [phone]. Notify your SURGEON if you develop any [...] piercings ,hair extensions that contain metal, nail gabonese, make-up, and contact lens. You may brush [...] RIGHTS AND RESPONSIBILITIES As a patient at [facility], you have the right to: Receive medical care and be informed of who is taking care of you Be treated with dignity and respect Have a family member/sales representative meats of choice and your physician notified of your admission Receive information and actively participate in decisions about your care and treatment Refuse care, treatment and services Decide who may provide your support and speak for you Access rastafari and spiritual services Participate in ethical issues [...] of hospital charges and payment methods Patient/patient sales representative meats responsibilities are to: Provide information about health [...] RIGHTS AND RESPONSIBILITIES As a patient at [facility], you have the right to: Receive medical care and be informed of who is taking care of you Be treated with dignity and respect Have a family member/sales representative meats of choice and your physician notified of your admission Receive information and actively participate in decisions about your care and treatment Refuse care, treatment and services Decide who may provide your support and speak for you Access rastafari and spiritual services Participate in ethical issues [...] of hospital charges and payment methods Patient/patient sales representative meats responsibilities are to: Provide information about health [...] have any questions. [facility] Miscellaneous Notes Patient currently scheduled for 01/06 for ION/ EBUS. Dr Whittaker is able to accommodate earlier on 12/25 and John said afternoon slot available which is his preferred. [...] at offered time. She is currently at [facility] and requests our office to call her later with the details. Spoke with patient. Instructed to hold aspirin on 12/20/24 for 5 days. Nothing to eat or drink after midnight. Arrive to [facility] by 1115 am for a procedure times of 115 pm. documented in this encounter [facility] 12-16-2024 Telephone encounter Note Patient currently scheduled for 01/06 for ION/ EBUS. Dr Whittaker is able to accommodate earlier on 12/25 and John said afternoon slot available which is his preferred. [...] being held on 12/25/24 at 115 pm. [facility] Work Phone: 12-16-2024 Telephone encounter Note Notification from Dr Thapa. The patient would like to have done at offered time. She is currently at [facility] and requests our office to call her later with the details. [facility] 12-16-2024 Telephone encounter Note Spoke with patient. Instructed to hold aspirin on 12/20/24 for 5 days. Nothing to eat or drink after midnight. Arrive to [facility] by 1115 am for a procedure times of 115 pm. [facility] 12-11-2024 Miscellaneous Notes Babcock Tester attempted to contact patient. No answer. Left message for patient to contact office regarding procedure date and time. Left office phone number for reference. Patient will need to be informed of the following: Ion Navigational procedure w/EBUS under general anesthesia (Dx: Lung nodule) is scheduled for Dec at 1:00 pm. Patient to arrive to [facility] at 11:00 am. Patient to report [...] procedure. Tylenol only. Make arrangements for a driver wheelchair to bring you to and from the hospital on the day of the procedure Bring your ID, current medication list and insurance cards to the hospital Call our office if you become ill such as a cold, cough, fever, sore throat or vomiting on the day before or day of the armored transport service manager to update Dr Thapa Case #[id number] Patient returned call. Babcock Tester informed patient of the following: Ion Navigational procedure w/EBUS under general anesthesia (Dx: Lung nodule) is scheduled for Dec at 1:00 pm. Patient to arrive to [facility] at 11:00 am. Patient to report [...] procedure. Tylenol only. Make arrangements for a driver wheelchair to bring you to and from the hospital on the day of the procedure Bring your ID, current medication list and insurance cards to the hospital Call our office if you become ill such as a cold, cough, fever, sore throat or vomiting on the day before or day of the procedure Patient agreeable to above information and verbalized understanding Babcock Tester to update Dr Thapa Case #[id number] Patient completed labs today but does not stop aspirin until 12-30-24. Do you want her to repeat them? No that is fine Procedure moved up to 12/25/24 at 115 pm with TSA [facility] Telephone encounter Note Babcock Tester attempted to contact patient. No answer. Left message for patient to contact office regarding procedure date and time. Left office phone number for reference. Patient will need to be informed of the following: Ion Navigational procedure w/EBUS under general anesthesia (Dx: Lung nodule) is scheduled for Dec at 1:00 pm. Patient to arrive to [facility] at 11:00 am. Patient to report [...] procedure. Tylenol only. Make arrangements for a driver wheelchair to bring you to and from the hospital on the day of the procedure Bring your ID, current medication list and insurance cards to the hospital Call our office if you become ill such as a cold, cough, fever, sore throat or vomiting on the day before or day of the armored transport service manager to update Dr Thapa Case #[id number] [facility] 12-11-2024 Telephone encounter Note Patient returned call. Babcock Tester informed patient of the following: Ion Navigational procedure w/EBUS under general anesthesia (Dx: Lung nodule) is scheduled for Dec at 1:00 pm. Patient to arrive to [facility] at 11:00 am. Patient to report [...] procedure. Tylenol only. Make arrangements for a driver wheelchair to bring you to and from the hospital on the day of the procedure Bring your ID, current medication list and insurance cards to the hospital Call our office if you become ill such as a cold, cough, fever, sore throat or vomiting on the day before or day of the procedure Patient agreeable to above information and verbalized understanding Babcock Tester to update Dr Thapa Case #[id number] [facility] 12-11-2024 Telephone encounter Note Patient completed labs today but does not stop aspirin until 12-30-24. Do you want her to repeat them? [facility] 12-11-2024 Telephone encounter Note No that is fine [facility] 12-11-2024 Telephone encounter Note Procedure moved up to 12/25/24 at 115 pm with TSA [facility] Work Phone: 12-11-2024 History of Present illness Narrative Images from the original note were not included. 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 She is a never smoker. Her father suffered from bone cancer and prostate cancer. She denies any personal or family history of rheumatologic conditions however she did follow with rheumatology regularly for joint injections at [facility]. She is mostly bothered by this dry [...] Past Medical History: Diagnosis Date Angina pectoris ([facility]) Arthralgia of multiple joints Arthritis Bicipital tendinitis Breast cancer ([facility]) 2024 Cancer ([facility]) breast x2 Carpal tunnel syndrome Dizziness vertigo Fibromyalgia, primary GERD (gastroesophageal reflux disease) Headache Heart burn Hyperlipidemia Hypertension Lumbosacral spinal stenosis Meningioma ([facility]) 07/2019 STABLE Neuropathy Obesity Osteoarthritis Positive SATYA (antinuclear antibody) Radiculopathy of lumbosacral region Trochanteric bursitis of right hip Varicella Visual impairment glasses Past Surgical History: Procedure Laterality Date ADENOIDECTOMY APPENDECTOMY 1960 BREAST BIOPSY 1996 BREAST LUMPECTOMY Bilateral 1992 Right; 1995 Left BUNIONECTOMY CARDIAC CATHETERIZATION 05/2019 CARDIAC CATHETERIZATION 1998 [facility] CARDIAC CATHETERIZATION 12/10/2024 COLONOSCOPY 06/08/2014 Dr. Robles COLONOSCOPY 11/09/2008 Dr. Robles COLONOSCOPY N/A 07/26/2020 Performed by Maverick Robles MD at [facility] EGD N/A 07/26/2020 Performed by Maverick Robles MD at [facility] FOOT SURGERY 09/2019 HYSTERECTOMY JOINT REPLACEMENT Left KNEE ARTHROSCOPY 2016 LYMPH NODE BIOPSY 1992 &1995 MASTECTOMY Bilateral MOUTH SURGERY REPLACEMENT TOTAL JOINT KNEE Left 01/15/2018 Performed by Jr Pepe Jeffries DO at [facility] TARSAL TUNNEL RELEASE TONSILLECTOMY 194 Lyrica [pregabalin], Penicillins, and Phenergan [promethazine] Prior [...] Results: None Radiology Dr. María Thapa DO. [facility] Pulmonary [facility] Critical Care Office: [phone] documented [facility] this encounter [facility] 12-09-2024 Note Patient needs cardia c clearance [...] at low risk for perioperative cardiac events. [facility] 12-09-2024 Note Patient: Margy grande Procedure Information Date/Time: 12/09/24 1030 Procedure: Coronary angiography Location: [facility] LEAD WORKER OF HOUSEKEEPING AND LAUNDRY 2 [address]ANE / [facility] (Cath) Providers: Kimmy Rosado MD Clinical information reviewed: Allergies Meds Physical Exam Airway Mallampati: III Cardiovascular Dental Pulmonary Abdominal Anesthesia Plan ASA 3 other (Conscious sedation) intravenous induction Anesthetic plan and risks discussed with patient. Use of blood products discussed with patient who consented to blood products. Plan discussed with attending and fellow. Additional Equipment Requests [facility] 11-10-2024 Note [facility] Cardiology Clinic Note Reason for cardiology [...] today 11/10/2024 s (more content not included)... [facility] 10-24-2024 Note XR CHEST 2 VWS [...] Norberto Corrigan MD on 10/24/2024 4:16 PM [facility] 08-27-2024 History of Present illness Narrative Associated Order(s): L Inj/Asp: R knee Post-Procedure Diagnose(s): Primary osteoarthritis of right knee Images from the original note were not included. NAME: Margy Oakes : 1945 HISTORY OF PRESENT ILLNESS: Margy Oakes is an 79 y.o. @ female. (EST PT) RT KNEE PAIN, 2 YRS (2021), CONTINUES GETTING WORSE. WENT TO [facility] ER 07/19 AFTER A FALL - HAS HAD PAIN SINCE LAST DEPO INJ 04/16 XRAY TODAY EPIC 08/27/24 XRAY [facility] 07/09/23 DEPO INJECTION 04/16/24 PHYSICAL THERAPY @ [...] BREAST BIOPSY Right 1992 BREAST BIOPSY Left 1996 BREAST LUMPECTOMY Right 1992 BREAST LUMPECTOMY Left 1995 COLONOSCOPY 2019 FOOT SURGERY 2009 FOOT SURGERY [address] [facility] MOUTH SURGERY TONSILLECTOMY 1948 TOTAL KNEE ARTHROPLASTY [...] knee osteoarthritis with valgus alignment. Lavinia Herring APRN-SUNITHA L Inj/Asp: R knee on 08/27/2024 12:21 [...] new symptoms develop for requiring urgent evaluation. NATE Yañez documented in this encounter [facility] 01-11-2024 History of Present illness Narrative Images from the original note were not included. [facility] [address] [place] [address], [address] [place] [address] * FOLLOW-UP NOTE ? 01/11/2024 Patient: Margy Oakes 1945 [id number] Physician: Vicenta Fernandes MD, FACS CHIEF COMPLAINT [...] gabapentin. Electronically signed by: Vicenta Fernandes MD, FACS This note was created with the assistance of a speech recognition program with the goal of generating a timely record of the patient encounter. Inadvertent computerized grain spouter errors related to syntax, spelling, homophones, and/or inaudibility may be present. documented in this encounter [facility] 01-11-2024 Instructions Katelyn Stevens CMA - 01/11/2024 9:40 AM EST Patient was seen today by Dr. Fernandes documented in this encounter [facility] 11-09-2023 Miscellaneous Notes Margy calls [...] will be placed. documented in this encounter [facility] 11-09-2023 Telephone encounter Note Margy calls [...] informed that a order will be placed. [facility] 05-31-2022 Note PROCEDURE: XR FOOT R [...] authenticated by: NORBERTO IVAN Date: 2022-05-31 21:57 [facility] 05-02-2022 Note CONSULTATION PROCEDURE DATE: 05/02/2022 PREOPERATIVE [...] will be followed up in the office. IF Signed and Approved by: DR BERNABE PRATHER . 05/09/2022 09:22:00 [facility] 05-02-2022 Note CONSULTATION CONSULTATION DATE: 05/02/2022 CHIEF [...] we need to follow through with the leg breaker's recommendation. Subsequent to the visit today, the patient will be followed up for return visit in 2-3 months. The patient understands and would like to proceed. CC: Lucia Esteban M.D. [facility] Signed and Approved by: DR BERNABE PRATHER . 05/09/2022 09:22:00 [facility] 04-18-2022 Note CONSULTATION PROCEDURE DATE: 04/18/2022 PREOPERATIVE [...] No intervention was performed on her left. [facility] Signed and Approved by: DR BERNABE PRATHER . 04/25/2022 08:30:00 [facility] 04-18-2022 Note CONSULTATION CONSULTATION DATE: 04/18/2022 CHIEF [...] like to proceed. CC: Lucia Esteban M.D. [facility] Signed and Approved by: DR BERNABE PRATHER . 04/25/2022 08:30:00 [facility] 04-04-2022 Note PROCEDURE: XR FOOT [...] by: NORBERTO IVAN Date: 2022-04-04 09:40 [facility] 04-04-2022 Note PROCEDURE: XR FOOT [...] authenticated by: NORBERTO IVAN Date: 2022-04-04 09:40 [facility] 03-28-2022 Note CONSULTATION PROCEDURE DATE: 03/28/2022 PREOPERATIVE [...] her legs were notable to the patient. [facility] Signed and Approved by: DR BERNABE PRATHER . 04/04/2022 12:22:00 [facility] 03-28-2022 Note CONSULTATION CONSULTATION DATE: 03/28/2022 CHIEF [...] like to proceed. CC: Lucia Esteban M.D. [facility] Signed and Approved by: DR BERNABE PRATHER . 04/04/2022 12:22:00 [facility] 02-28-2022 Note CONSULTATION Consultation Date:02/28/2022 PAIN MANAGEMENT [...] in one month. CC: Lucia Esteban M.D. [facility] Signed and Approved by: DR BERNABE PRATHER . 03/07/2022 12:16:00 [facility] 02-14-2022 Note CONSULTATION PAIN MANAGEMENT CONSULTATION CHIEF COMPLAINT: Bilateral leg pain. HISTORY OF PRESENT ILLNESS: This is a very pleasant, 77-year-old female, who was referred to us by physician media assistant, Loly Fox. The patient's family physician is Dr. Lucia Esteban. The patient has had chronic leg pain. [...] by: DR BERNABE PRATHER . 02/21/2022 11:53:00 [facility] 02-14-2022 Note CONSULTATION PROCEDURE NOTE PREOPERATIVE DIAGNOSIS: [...] by: DR BERNABE PRATHER . 02/21/2022 11:53:00 [facility] Evaluation note Diagnosis Primary osteoarthritis of right knee- Primary Right knee pain, unspecified chronicity [facility] Diagnosis Pulmonary nodules/lesions, multiple- Primary Other diseases of lung, not elsewhere classified Pulmonary nodule Other diseases of lung, not elsewhere classified [facility] Diagnosis Preop testing- Primary Unspecified pre-operative examination Pulmonary nodule Other diseases of lung, not elsewhere classified SOB (shortness of breath) Shortness of breath [facility] Diagnosis Neuropathy- Primary Mononeuritis of unspecified site [facility] Diagnosis Neuropathy- Primary Mononeuritis of unspecified site [facility] Diagnosis Acute pain of right knee- Primary Arthritis of right knee documented in this encounter [facility]* Diagnosis Moderate persistent asthma without [...] Referral Specialty Diagnoses / Procedures Referred By Contac t Referred To Contact Radiology Diagnoses Neuropathy Procedures MR lumbar spine without contrast Vicenta Fernandes MD [address] [place] [address] [address] [place] [address] Referral ID Status Reason Start Date Expiration Date V isits Requested Visits Authorized [id number] Pending Review 11/09/2023 11/08/2024 1 1 Additional Source Comments INFORMATION SOURCE (unrecogn ized section and content) DATE CREATED AUTHOR 07/11/2019 [facility] DATE CREATED AUTHOR AUTHOR'S ORGANIZ ATION 06/15/2022 [facility] DATE CREATED AUTHOR AUTHOR'S ORGANIZ ATION 11/14/2024 [facility] DATE CREATED AUTHOR AUTHOR'S ORGANIZ ATION 12/14/2024 [facility] DATE CREATED AUTHOR AUTHOR'S ORGANIZ ATION 02/07/2025 [facility] DATE CREATED AUTHOR AUTHOR'S ORGANIZ ATION 02/21/2025 [facility] DATE CREATED AUTHOR AUTHOR'S ORGANIZ ATION 03/20/2025 [facility] DATE CREATED AUTHOR AUTHOR'S ORGANIZ ATION 03/21/2025 [facility] Source Comments (unrecognize d section and content) In the event this informatio n is protected by the Federal Confidentiality of Alcohol and Drug Abuse Patient Records regulations: The Federal rules restrict any use of the information to criminally investigate or prosecute any alcohol or drug abuse patient.[facility] Care Teams (unrecognized sec tion and content) Weaver Apprentice Relationship Specialty Start Date End Date Lucia Esteban MD [address] [place] [phone] PCP - External PCP Family Medicine 04/21/23 Lucia Esteban MD [address] [place] [address] PCP - General Family Medicine 04/16/24 Weaver Apprentice Relationship Specialty Start Date End Date Lucia Esteban MD [address] [place] [address] PCP - External PCP Family Medicine 04/21/23 Lucia Esteban MD [address] [address] PCP - General Family Medicine 04/16/24 Weaver Apprentice Relationship Specialty Start Date End Date Lucia Esteban MD [address] [address] PCP - General 05/04/15 Weaver Apprentice Relationship Specialty Start Date End Date Lucia Esteban MD [address] [address] PCP - General 05/04/15 Weaver Apprentice Relationship Specialty Start Date End Date Lucia Esteban MD [address] [address] PCP - General 05/04/15 Weaver Apprentice Relationship Specialty Start Date End Date Lucia Esteban MD [address] [address] PCP - General 05/04/15 Weaver Apprentice Relationship Specialty Start Date End Date Lucia Esteban MD [address] [address] PCP - General 05/04/15 Weaver Apprentice Relationship Specialty Start Date End Date Lucia Esteban MD [address] [address] PCP - General 05/04/15 Weaver Apprentice Relationship Specialty Start Date End Date Lucia Esteban MD [address] [address] PCP - General 05/04/15 Weaver Apprentice Relationship Specialty Start Date End Date Lucia Esteban MD [address] [address] PCP - External PCP Family Medicine 04/21/23 Lucia Estbean MD [address] [address] PCP - General Family Medicine 04/16/24 Weaver Apprentice Relationship Specialty Start Date End Date Lucia Esteban MD [address] [address] PCP - External PCP Family Medicine 04/21/23 Lucia Esteban MD [address] [address] PCP - General Family Medicine 04/16/24 Weaver Apprentice Relationship Specialty Start Date End Date Lucia Esteban MD [address] [address] PCP - General 05/04/15 Weaver Apprentice Relationship Specialty Start Date End Date Lucia Esteban MD [address] [address] PCP - General 05/04/15 Weaver Apprentice Relationship Specialty Start Date End Date Lucia Esteban MD [address] [address] PCP - General 05/04/15 Weaver Apprentice Relationship Specialty Start Date End Date Lucia Esteban MD [address] [place] [phone] PCP - General 05/04/15 Weaver Apprentice Relationship Specialty Start Date End Date Lucia Esteban MD [address] [place] [phone] PCP - External PCP Family Medicine 04/21/23 Lucia Esteban MD [address] [place] [phone] PCP - General Family Medicine 04/16/24 Reason for Visit (unrecogniz ed section and content) Reason Comments Pain Reason Comments New Patient CT: 11/14/2024PET CT : 12/02/2024 Lung Nodule Specialty Diagnoses / Procedures Referred By David roa Referred To Contact Pulmonary Medicine Diagnoses Pulmonary nodule Natasha Vazquez MD [address] [place] [address] [address] [place] [address] Phone: tel: fax: [facility] [address] [place] [phone] Phone: tel: fax: Referral ID Status Reason Start Date Expiration Date Visits Requested Visits Authorized [id number] Pending Review Specialty Services Required 12/04/2024 12/04/2025 [...] BE BASED ON THE PRIMARY CLINICAL RECORDS. [facility] provides no warranty or guarantee of the accuracy or completeness of information in this document.
[2025-03-28 21:29] LABS: Glucometer 100 mg/dL (74-106)
[2025-03-28] MEDS: AMITRIPTYLINE HCL 10 MG TABLET PO (21:29)
[2025-03-28] MEDS: BENZONATATE 100 MG CAPSULE PO (21:29)
[2025-03-28] MEDS: ATORVASTATIN CALCIUM 20 MG TABLET PO (21:29)
[2025-03-28] MEDS: HEPARIN SODIUM (PORCINE) 5,000 UNIT/ML VIAL 5000 UNIT SUBQ (21:30)
[2025-03-28] MEDS: 0.9 % SODIUM CHLORIDE 1,000 ML 100 ML IV (21:32)
[2025-03-28] MEDS: GABAPENTIN 100 MG CAPSULE PO (21:50)
[2025-03-29] MEDS: DIPHENHYDRAMINE HCL 25 MG CAPSULE PO (01:11)
[2025-03-29 04:00] VITALS: BP 143/87; PULSE 68; TEMP 37.1; O2SAT 92
[2025-03-29 04:05] VITALS: O2SAT 92
[2025-03-29] MEDS: 0.9 % SODIUM CHLORIDE 1,000 ML 100 ML IV (06:24)
[2025-03-29] MEDS: GABAPENTIN 100 MG CAPSULE PO (06:24)
[2025-03-29 06:40] LABS: Alanine Aminotransferase 27 U/L (14-59); Albumin Globulin Ratio 0.9; Albumin Level 3.2 g/dL (3.4-5.0); Alkaline Phosphatase 79 U/L (46-116); Anion Gap 14.9; Aspartate Amino Transferase 27 U/L (15-37); BUN Creatinine Ratio 13.8; Bilirubin Total 0.5 mg/dL (0.2-1.0); Calcium 8.4 mg/dL (8.5-10.1); Carbon Dioxide 24.3 mmol/L (21.0-32.0); Chloride 101 mmol/L (98-107); Estimated GFR (African America 26 (>=60 mL/min/1.73m^2); Estimated GFR (Non-African Ame 22 (>=60 mL/min/1.73m^2); Globulin 3.5 g/dL; Glucose 87 mg/dL (74-106); Magnesium 1.2 mg/dL (1.8-2.4); Potassium 4.2 mmol/L (3.5-5.1); Sodium 136 mmol/L (136-145); Total Protein 6.7 g/dL (6.4-8.2)
[2025-03-29 07:51] VITALS: BP 168/72; PULSE 65; TEMP 36.6; O2SAT 92
[2025-03-29] MEDS: ISOSORBIDE MONONITRATE 30 MG TAB.ER.24H PO (08:40)
[2025-03-29] MEDS: BENZONATATE 100 MG CAPSULE PO (08:40)
[2025-03-29] MEDS: TIZANIDINE HCL 4 MG TABLET PO (08:40)
[2025-03-29] MEDS: MONTELUKAST SODIUM 10 MG TABLET PO (08:40)
[2025-03-29] MEDS: METOPROLOL SUCCINATE 25 MG TAB.ER.24H PO (08:40)
[2025-03-29] MEDS: HEPARIN SODIUM (PORCINE) 5,000 UNIT/ML VIAL 5000 UNIT SUBQ (08:41)
[2025-03-29] MEDS: MAGNESIUM SULFATE IN WATER 2 GM/50 ML PREMIX IV (09:44)
[2025-03-29] MEDS: 0.9 % SODIUM CHLORIDE 500 ML IV (10:52)
--- NOTE | 2025-03-29 11:11 | PM.HP ---
HPI H&P: HPI History of Present Illness Chief complaint: DEHYDRATION UTI Narrative: History of presenting illness and Hospital course: 80-year-old female with past medical history of breast cancer currently on Ibrance/letrozole, hyperlipidemia, essential hypertension presented to ED last evening with generalized weakness/feeling unwell. Patient reports that for past 10 days, she has rhinorrhea/nasal congestion/sinus congestion along with productive cough. She also has mild shortness of breath associated with other respiratory symptoms. She was prescribed oral Levaquin by her oncologist on Sunday and she feels that her symptoms got worse since Sunday. She also reports poor oral intake and anorexia for past few days. Workup in ED revealed acute kidney injury with serum creatinine of 2.5 upon arrival. Her baseline serum creatinine is about 1.5. Patient tested negative for COVID/influenza. Her chest x-ray did not reveal any evidence of pneumonia. She was admitted overnight for observation and is started on IV fluids. Her serum creatinine improved on morning labs to 2.17. She feels well overall but still has cough but denies shortness of breath. I feel there is no ongoing need for inpatient monitoring and treatment as patient is tolerating oral diet. Prior to discharge I will give her a one-time bolus of 500 mL normal saline. I will discharge her on oral doxycycline, Medrol Dosepak along with benzonatate as needed for cough. I would recommend with holding HCTZ/lisinopril for 1 week. I also instructed her to have BMP (prescription given) within 1 week to ensure her renal function has recovered to its baseline. She has a follow-up appointment with oncology next week on Sunday and has routine labs scheduled. She was instructed to follow-up with PCP in 1 to 2 weeks. Patient was educated on worrisome signs and symptoms and was instructed to return to ED if she experience worsening cough/shortness of breath or decreased oral intake. Discharge diagnosis: Acute kidney injury Upper respiratory illness likely bacterial Discharge disposition: Home Opioid HPI Opioid Management Most Recent Pain and Opioid Data: Last Pain Scale 2 Today, 10:00 Last Pain Assessment 03/28/25, 21:00 Last MAR Pain Assessment 03/28/25, 16:49 Last ORT Total Score 0 03/28/25, 20:28 Last ORT Risk Category Low Risk 03/28/25, 20:28 Review of Systems ROS Status of ROS 10 or more systems reviewed and unremarkable except as noted in history and below [facility] Medical History Pancytopenia ?D61.818 - Other pancytopenia (ICD-10) CKD (chronic kidney disease) stage 3, GFR 30-59 ml/min ?N18.30 - Chronic kidney disease, stage 3 unspecified (ICD-10) HLD (hyperlipidemia) ?E78.5 - Hyperlipidemia, unspecified (ICD-10) HTN (hypertension) ?I10 - Essential (primary) hypertension (ICD-10) Breast cancer ?C50.919 - Malignant neoplasm of unspecified site of unspecified female breast (ICD-10) Cancer ?C80.1 - Malignant (primary) neoplasm, unspecified (ICD-10) Family History Other UTI (urinary tract infection) Social History Within the past year, how often did you have a drink containing alcohol: never Score interpretation: A score less than 3 is consistent with normal alcohol consumption. Smoking status: Never smoker Non-prescribed substance use: denies use Known occupational exposures/hazards: No Highest level of school completed/degree received: high school graduate Little interest or pleasure in doing things: not at all Feeling down, depressed, or hopeless: not at all Meds Home Medications and Allergies Home Medications ?Medication ?Instructions ?Recorded ?Confirmed ?Type albuterol sulfate 90 mcg/actuation 1 puff inhalation Q8H PRN 03/28/25 03/28/25 History aerosol inhaler shortness of breath or wheezing amitriptyline 10 mg tablet 10 mg PO Q12H 03/28/25 03/28/25 History atorvastatin 20 mg tablet 20 mg PO DAILY 03/28/25 03/28/25 History duloxetine 60 mg capsule,delayed 60 mg PO DAILY 03/28/25 03/28/25 History release fluticasone furoate 200 1 inh inhalation Q24H 03/28/25 03/28/25 History mcg-vilanterol 25 mcg/dose inhalation powder (Breo Ellipta) gabapentin 300 mg capsule 300 mg PO Q8H 03/28/25 03/28/25 History hydrochlorothiazide 12.5 mg capsule 12.5 mg PO DAILY 03/28/25 03/28/25 History Held on 03/29/25. Instructions: Resume on 04/03/25. isosorbide mononitrate 30 mg 30 mg PO DAILY 03/28/25 03/28/25 History tablet,extended release 24 hr letrozole 2.5 mg tablet 2.5 mg PO Q24H 03/28/25 03/28/25 History lisinopril 10 mg tablet 10 mg PO DAILY 03/28/25 03/28/25 History Held on 03/29/25. Instructions: Resume on 04/03/25. metoprolol succinate 25 mg 25 mg PO DAILY 03/28/25 03/28/25 History tablet,extended release 24 hr montelukast 10 mg tablet 10 mg PO DAILY 03/28/25 03/28/25 History nitroglycerin 0.4 mg sublingual 0.4 mg sublingual Q5M PRN chest 03/28/25 03/28/25 History tablet pain omeprazole 20 mg capsule,delayed 20 mg PO Q8H 03/28/25 03/28/25 History release palbociclib 125 mg tablet (Ibrance) 125 mg PO DAILY 03/28/25 03/28/25 History tizanidine 4 mg tablet 4 mg PO DAILY 03/28/25 03/28/25 History benzonatate 100 mg capsule 100 mg PO Q8H PRN cough #20 caps 03/29/25 Rx doxycycline hyclate 100 mg tablet 100 mg PO BID 7 days #14 tabs 03/29/25 Rx fluticasone propionate 50 2 spray intranasal DAILY #16 grams 03/29/25 Rx mcg/actuation nasal spray,suspension (Flonase Allergy Relief) methylprednisolone 4 mg tablets in 4 mg PO DAILY #21 ea 03/29/25 Rx a dose pack (Medrol (Pablo)) Allergies Allergy/AdvReac Type Severity Reaction Status Date / Time Penicillins Allergy Unknown Unknown Verified 02/18/25 09:44 pregabalin (From Lyrica) Allergy Unknown Unknown Verified 02/18/25 09:44 Exam Constitutional Vital Signs, click to edit/add: Last Vital Signs Temp 97.9 F 03/29/25 07:51 Pulse 65 03/29/25 07:51 Resp 16 03/29/25 07:51 BP 168/72 H 03/29/25 07:51 Pulse Ox 92 L 03/29/25 07:51 O2 Del Method Room Air 03/29/25 07:51 Documenting provider has reviewed patient's vital signs: yes Common normals: no apparent distress and oriented x3 General appearance: cooperative Respiratory Common normals: normal respiratory effort and clear to auscultation bilaterally Effort & inspection: able to speak in complete sentences Auscultation: clear to auscultation bilaterally Cardio Common normals: regular rate, S1 normal heart sound and S2 normal heart sound Rate: regular rate Heart sounds: S1 normal and S2 normal GI Common normals: Normal to inspection, nondistended, normoactive bowel sounds present, soft to palpation, non-tender and no hepatosplenomegaly Palpation: soft and no hepatosplenomegaly Extremity Common normals: no clubbing, cyanosis or edema Neuro Common normals: oriented x3, moves all extremities and no focal motor deficits Psych Common normals: mental status grossly normal, denies hallucinations, denies homicidal ideation and denies suicidal ideation Results Labs Labs: Short CBC 03/28/25 Range/Units 16:44 WBC 1.9 L (4.0-11.0) 10^3/uL Hgb 9.8 L (12.0-16.0) g/dL Hct 29.3 L (36.0-48.0) % Plt Count 152 (150-450) 10^3/uL BMP 03/28/25 03/29/25 16:44 05:51 Sodium 133 L 136 Potassium 4.2 4.2 Chloride 98 101 Carbon Dioxide 26.0 24.3 BUN 32.0 H 30.0 H Creatinine 2.53 H 2.17 H Glucose 129 H 87 Calcium 9.3 8.4 L Liver Function 03/28/25 03/29/25 Range/Units 16:44 05:51 Total Bilirubin 0.6 0.5 (0.2-1.0) mg/dL AST 27 27 (15-37) U/L ALT 28 27 (14-59) U/L Alkaline Phosphatase 88 79 (46-116) U/L Albumin 3.6 3.2 L (3.4-5.0) g/dL Urine 03/28/25 Range/Units 17:58 Urine Color Lt. yellow (YELLOW) Urine Clarity Sl cloudy (CLEAR) Urine pH 5.5 (5.0-9.0) Ur Specific Dolores 1.015 (1.005-1.025) Urine Protein Negative (NEG/TRACE) mg/dL Urine Glucose (UA) Negative (NEGATIVE) mg/dL Assessment and Plan Assessment and Plan (1) Acute kidney injury: Assessment and Plan: Baseline serum creatinine of 1.5. Presented with serum creatinine of 2.5. Improved with IV hydration. Likely secondary to dehydration. Recheck BMP in 1 week. (2) Upper respiratory infection: Assessment and Plan: Negative COVID/influenza. No evidence of pneumonia on chest x-ray. Likely upper respiratory illness. Will discharge on oral doxycycline, Medrol Dosepak for symptomatic relief along with benzonatate as needed for cough. Qualifiers: URI type: unspecified URI Qualified Code(s): J06.9 - Acute upper respiratory infection, unspecified (3) Pancytopenia: Assessment and Plan: Chronic, unchanged. Stable. Follows up with oncology as outpatient. (4) Breast cancer: Assessment and Plan: Currently being treated. Follow-up appointment with oncology next Sunday. Qualifiers: Breast location: unspecified site of breast Estrogen receptor status: unspecified Patient sex: female Laterality: unspecified laterality Qualified Code(s): C50.919 - Malignant neoplasm of unspecified site of unspecified female breast (5) CKD (chronic kidney disease) stage 3, GFR 30-59 ml/min: Assessment and Plan: CKD stage III, presented with ADELITA. BMP ordered for next week to ensure renal function recovers. Qualifiers: Chronic kidney disease stage 3 subtype: stage 3a (GFR 45-59) Qualified Code(s): N18.31 - Chronic kidney disease, stage 3a (6) HLD (hyperlipidemia): Assessment and Plan: Continue with statin Qualifiers: Hyperlipidemia type: unspecified Qualified Code(s): E78.5 - Hyperlipidemia, unspecified (7) HTN (hypertension): Assessment and Plan: HCTZ, lisinopril because of acute kidney injury/dehydration for 1 week. Repeat BMP in 1 week and if renal function recovers, can resume HCTZ and lisinopril. Qualifiers: Hypertension type: primary hypertension Qualified Code(s): I10 - Essential (primary) hypertension Plan Patient medically stable for discharge. Sent home on oral Doxy/benzonatate and Medrol Dosepak for upper respiratory illness. Hold HCTZ/lisinopril for acute kidney injury and repeat BMP ordered. If renal function improves/recovers to his baseline, can resume HCTZ/lisinopril. Follow-up with PCP in 1 to 2 weeks.
[2025-03-29 11:25] VITALS: O2SAT 93
[2025-03-29 11:59] VITALS: BP 150/68; PULSE 58; TEMP 36.7; O2SAT 93
--- NOTE | 2025-03-29 14:07 | PC.NURSE ---
Called and could not leave a message in reference to lab order's for the patient. Attempted to call daughter Meek Marie and went straight to voice mail
--- NOTE | 2025-03-30 11:49 | CM.DCFOLLOWU ---
Person spoke with:patient How are you feeling? not well at all. Dr. Vazquez called and wants her to go to [place], her family is taking her today How is your pain? N/A Did you understand your discharge instructions?yes Do you have any questions about your discharge instructions?no Were you given any prescriptions at discharge? yes Were you able to get your prescriptions filled?yes, but did not take them Do you understand how to take your medications as ordered?yes Do you have any questions about your follow up appointment and do you plan to keep your follow up appointment? no questions Is there anything else that you would like to discuss? no Questions/Comments/Concerns/Other:none
== END 2025-03-29 12:50 | disposition home or self-care (01) ==
LOC: ER 18:51 → MS 20:08
PROVIDERS: Personal Emergency Response Attendant; Registered Nurse; Admitting Provider Internal Medicine; Emergency Provider Emergency Medicine; PCP Family Medicine; Visit Provider Internal Medicine
DX: N17.9 Acute kidney failure, unspecified (principal); N39.0 Urinary tract infection, site not specified; D70.9 Neutropenia, unspecified; I12.9 Hypertensive chronic kidney disease with stage 1 through stage 4 chronic kidney disease, or unspecified chronic kidney disease; N18.31 Chronic kidney disease, stage 3a; C50.919 Malignant neoplasm of unspecified site of unspecified female breast; J06.9 Acute upper respiratory infection, unspecified; E78.5 Hyperlipidemia, unspecified; R63.0 Anorexia; E86.0 Dehydration; D61.818 Other pancytopenia; Z68.32 Body mass index [BMI] 32.0-32.9, adult; Z88.0 Allergy status to penicillin; Z90.10 Acquired absence of unspecified breast and nipple; Z88.8 Allergy status to other drugs, medicaments and biological substances; Z79.899 Other long term (current) drug therapy
CPT/HCPCS: 36415; 71046; 80053; 81001; 83605; 83690; 83735; 83874; 84484; 85007; 85025; 85027; 85610; 85730; 86140; 87040; 87086; 87804; 87811; 93005; 94667; 94761; 96365; 96367; 96372; 96375; 99285; G0378; J0696; J1644; J1885; J2405; J3475

== ENCOUNTER 2025-04-07 07:33 | Outpatient (RCR) | payer MEDICARE, SELFPAY ==
--- NOTE | 2025-03-31 08:51 | PC.NURSE ---
Addendum entered by Luz Maria Koenig RN 03/31/25 09:08: [facility] called to confirm if patient would be seen today and if they could do her blood work at the same time rather than have the patient go to the lab and [facility] today. [facility] confirmed that patient would be in today to get blood work done and that they will add the labs to the ones she is getting. Lab order faxed to [facility]. Patient aware to go to [facility] for labs. Original Note: Patient called regarding lab orders that were ordered but physical copy of order left behind at discharge and that labs should be drawn within the next couple of days. Patient states that she will come in some time today.
[2025-03-31] MEDS: DEXTROSE 5%-0.9% NACL 1,000 ML 1,000 ML 670.667 ML IV (13:16)
[2025-03-31] MEDS: ONDANSETRON PF 4 MG/2 ML VIAL 8 MG IV (13:17)
[2025-03-31] MEDS: DEXAMETHASONE SODIUM PHOSPHATE 8 MG in 0.9 % SODIUM CHLORIDE 100 ML 306 MG IV (13:18)
[2025-03-31] MEDS: FAMOTIDINE/PF 20 MG/2 ML VIAL IV (13:18)
--- NOTE | 2025-03-31 13:30 | PC.NURSE ---
See vitals located ON[facility] EMR, as patient was seen by Taylor this day.
[2025-03-31 15:51] LABS: Hematocrit 27.5 % (36.0-48.0); Hemoglobin 9.5 g/dL (12.0-16.0); Mean Corpuscular HGB Conc 34.5 g/dL (29.9-35.2); Mean Corpuscular Hemoglobin 36.4 pg (26.7-34.0); Mean Corpuscular Volume 105.4 fL (81.0-99.0); Mean Platelet Volume 8.8 fL (9.5-13.5); Platelet Count 171 10^3/uL (150-450); Red Blood Count 2.61 10^6/uL (4.20-5.40); Red Cell Distribution Width 19.8 % (11.0-15.0); White Blood Count 1.9 10^3/uL (4.0-11.0)
--- NOTE | 2025-03-31 15:54 | PC.NURSE ---
1530 IV Fluids infused. Labs drawn from IV site, tolerated well. Ambulated to bathroom, tolerated well. IV dc'd, catheter intact. cotton ball and bandaid applied. tolerated well
[2025-03-31] MEDS: EPOETIN ALFA 20,000 UNIT/2 ML VIAL 40000 UNIT SUBQ (16:07)
[2025-03-31 16:11] LABS: Alanine Aminotransferase 27 U/L (14-59); Albumin Globulin Ratio 0.8; Albumin Level 3.3 g/dL (3.4-5.0); Alkaline Phosphatase 96 U/L (46-116); Anion Gap 18.3; Aspartate Amino Transferase 30 U/L (15-37); Bilirubin Total 0.4 mg/dL (0.2-1.0); Carbon Dioxide 22.1 mmol/L (21.0-32.0); Chloride 100 mmol/L (98-107); Estimated GFR (African America 55 (>=60 mL/min/1.73m^2); Estimated GFR (Non-African Ame 45 (>=60 mL/min/1.73m^2); Globulin 3.9 g/dL; Glucose 342 mg/dL (74-106); Potassium 4.4 mmol/L (3.5-5.1); Sodium 136 mmol/L (136-145); Total Protein 7.2 g/dL (6.4-8.2)
[2025-03-31 16:17] LABS: Percent Iron Saturation 16.6 %
[2025-03-31 16:19] LABS: Basophils Abs Manual 0.01 10^3/uL (0.00-0.10); Lymphocytes Absolute Manual 0.36 10^3/uL (1.20-3.80); Monocytes Absolute Manual 0.03 10^3/uL (0.30-0.80); Segmented Neut Absolute Manual 1.48 10^3/uL (1.4-6.5)
[2025-03-31 16:20] LABS: Macrocytosis 1+
[2025-03-31 16:21] LABS: Anisocytosis 2+
[2025-04-07 09:26] LABS: Basophils Absolute Auto 0.1 10^3/uL (0.0-0.1); Basophils Percent Auto 1.5 % (0.2-2.0); Eosinophils Absolute Auto 0.2 10^3/uL (0.0-0.7); Eosinophils Percent Auto 4.3 % (0.9-7.0); Hematocrit 31.1 % (36.0-48.0); Hemoglobin 10.1 g/dL (12.0-16.0); Immature Granulocytes Abs Auto 0.07 10^3/uL (0.00-0.03); Immature Granulocytes Pct Auto 1.5 % (0.0-0.5); Lymphocytes Absolute Auto 0.9 10^3/uL (1.2-3.8); Lymphocytes Percent Auto 18.9 % (20.5-60.0); Mean Corpuscular HGB Conc 32.5 g/dL (29.9-35.2); Mean Corpuscular Hemoglobin 35.7 pg (26.7-34.0); Monocytes Absolute Auto 1.1 10^3/uL (0.3-0.8); Monocytes Percent Auto 24.6 % (1.7-12.0); Neutrophils Absolute Auto 2.3 10^3/uL (1.4-6.5); Neutrophils Percent Auto 49.2 % (43.0-75.0); Platelet Count 277 10^3/uL (150-450); Red Blood Count 2.83 10^6/uL (4.20-5.40); Red Cell Distribution Width 20.6 % (11.0-15.0); White Blood Count 4.6 10^3/uL (4.0-11.0)
[2025-04-07 09:42] LABS: Mean Corpuscular Volume 109.9 fL (81.0-99.0)
[2025-04-07 09:57] LABS: Chol HDL Ratio 1.8; Cholesterol 141 mg/dL (<=200); HDL Cholesterol 79 mg/dL (40-60); Triglycerides 69 mg/dL (<=150); VLDL CHOLESTEROL 13.8 mg/dL
[2025-04-08 04:07] LABS: CA 15-3 58.4 U/mL (0.0-25.0)
[2025-04-08 07:08] LABS: CA 27.29 82.6 U/mL (0.0-38.6)
== END 2025-04-07 14:21 | disposition home or self-care (01) ==
LOC: HEMC 07:33
PROVIDERS: PCP Family Medicine; Visit Provider Internal Medicine Hematology & Oncology
DX: C78.01 Secondary malignant neoplasm of right lung (principal); D64.81 Anemia due to antineoplastic chemotherapy; Z85.3 Personal history of malignant neoplasm of breast; Z90.13 Acquired absence of bilateral breasts and nipples; R07.89 Other chest pain; R06.02 Shortness of breath; D63.1 Anemia in chronic kidney disease; N18.9 Chronic kidney disease, unspecified; R91.1 Solitary pulmonary nodule; N17.0 Acute kidney failure with tubular necrosis
CPT/HCPCS: 36415; 80053; 80061; 82306; 82728; 83540; 83550; 85007; 85025; 85027; 86300; 96365; 96372; 96375; G0463; J0885; J1100; J2405; J3490

== ENCOUNTER 2025-04-13 13:41 | Outpatient (OUT) | payer MEDICARE, SELFPAY ==
--- NOTE | 2025-04-13 16:17 | PE_ITS ---
The [address] [address] Patient Name: EPI MUSTAFA MRN: [id number] date: 1945 Sex: F Assigned Patient Location: PETCT Current Patient Location: [facility] Accession/Order Number: [id number] Exam Date: 04/14/2025 09:00 Report Date: 04/14/2025 10:34 At the request of: PEYTON MCMILLAN MD Procedure: PET skull to mid thigh PET/CT WITH FUSION COMPARISON: Reference is made to reports from [facility] PET/CT 12/02/2024 CLINICAL DATA: Solitary pulmonary nodule. History of breast cancer. Following the intravenous administration of 14.04 mCi of FDG, SPECT imaging in 3 planes was performed from the level the orbits through the groin. The patient's blood glucose level at the time the ejection was 111 mg/dL. Spiral unenhanced imaging was also performed for anatomic localization. The PET and CT images were fused. This CT exam was performed using one or more following dose reduction techniques: Automated exposure control, adjustment of the mA and/or kV according to patient size, or use of iterative reconstruction technique. NECK: There is suspected physiologic activity at the vocal cords, slightly asymmetric on the left. There is also physiologic activity at the oral cavity. A focus of increased FDG uptake is visualized near the body of the mandible on the right. No obvious corresponding finding is identified on CT however there is also streak artifact from dental amalgam. The standard uptake value is greater than 10. No hypermetabolic cervical adenopathy is seen. CHEST: There are calcified and noncalcified mediastinal lymph nodes . The largest node is in the prevascular space. These are not hypermetabolic. There are also calcified and multiple noncalcified pulmonary nodules. The largest nodule is currently at the left lower lobe measuring 12 mm. These do not appear to be FDG avid however most are below size threshold for PET imaging. There are mild groundglass parenchyma changes as well as minimal scarring or atelectasis on the CT images Patient is status post bilateral mastectomy. There are hemostasis clips in the axillary region on both sides. ABDOMEN/PELVIS: There is no hypermetabolism associated with the liver or adrenal glands. No enlarged or hypermetabolic abdominal or pelvic lymph nodes are seen. There is physiologic activity involving the urinary tract. There is pelvic floor relaxation and suggestion of bladder prolapse. There is also physiologic activity involving bowel. There is disproportionate uptake near the anus that may still be physiologic however clinical correlation is suggested. There is an incidental 3 cm left adnexal cyst. The uterus is surgically absent. PET/PET skull to mid thigh IMPRESSION: MULTIPLE BILATERAL PULMONARY NODULES, WITHOUT ASSOCIATED INCREASED FDG UPTAKE. INDETERMINANT FOCUS OF INCREASED UPTAKE ADJACENT TO THE RIGHT MANDIBLE. THIS MIGHT BE RELATED TO THE BONE AND POSSIBLY DENTAL DISEASE THOUGH CORRELATION IS SUGGESTED. DISPROPORTIONATE UPTAKE NEAR THE ANUS THAT IS PROBABLY PHYSIOLOGIC THOUGH CLINICAL CORRELATION IS RECOMMENDED. Impression dictated by: Billie Houston M.D. 04/14/2025 10:34 AM Dictation Location: [place] [address] Electronically authenticated by: [id number] Y Date: 04/14/2025 10:34
== END 2025-04-13 13:42 | disposition home or self-care (01) ==
LOC: PETCT 13:41
PROVIDERS: PCP Family Medicine; Visit Provider Internal Medicine Hematology & Oncology
DX: R91.1 Solitary pulmonary nodule (principal); Z85.3 Personal history of malignant neoplasm of breast; C50.912 Malignant neoplasm of unspecified site of left female breast; C50.911 Malignant neoplasm of unspecified site of right female breast; C78.01 Secondary malignant neoplasm of right lung; D63.1 Anemia in chronic kidney disease; D64.81 Anemia due to antineoplastic chemotherapy
CPT/HCPCS: 78815; A9552

== ENCOUNTER 2025-04-16 16:08 | Outpatient (OUT) | payer MEDICARE, SELFPAY ==
[2025-04-16 16:46] LABS: Bilirubin Urine NEGATIVE (NEGATIVE); Blood Urine NEGATIVE (NEGATIVE); Clarity Urine CLEAR (CLEAR); Color Urine LT. YELLOW (YELLOW); Glucose Urine UA NEGATIVE (NEGATIVE); Ketones Urine NEGATIVE (NEGATIVE); Leukocyte Esterase Urine SMALL (NEGATIVE); Nitrite Urine NEGATIVE (NEGATIVE); Protein Urine NEGATIVE (NEG/TRACE); Specific Gravity Urine <=1.005 (1.005-1.025); Urobilinogen Urine 0.2 EU/dL (0.2-1.0)
[2025-04-16 17:01] LABS: Albumin Level 3.1 g/dL (3.4-5.0); Anion Gap 12.6; BUN Creatinine Ratio 11.4; Calcium 9.4 mg/dL (8.5-10.1); Carbon Dioxide 26.2 mmol/L (21.0-32.0); Chloride 99 mmol/L (98-107); Estimated GFR (African America 32 (>=60 mL/min/1.73m^2); Estimated GFR (Non-African Ame 26 (>=60 mL/min/1.73m^2); Glucose 97 mg/dL (74-106); Potassium 4.8 mmol/L (3.5-5.1); Sodium 133 mmol/L (136-145)
[2025-04-16 17:25] LABS: Bacteria Urine TRACE #/HPF (NONE SEEN); RBC Urine 0-2 #/HPF (0-2); WBC Urine 0-2 #/HPF (NONE SEEN)
[2025-04-16 17:26] LABS: Cast Seen? SEEN #/LPF (NONE SEEN); Crystals Seen? None Seen #/HPF (None Seen); Hyaline Casts Urine RARE; Mucus Urine NONE SEEN (NONE SEEN); Squamous Epithelial Cell Urine RARE #/LPF (NONE/RARE); Transitional Epi Cells Urine RARE #/LPF (NONE SEEN)
[2025-04-16 17:27] LABS: Creatinine Urine Random 46.09 mg/dL (20.00-300.00); Total Protein Urine Random 9.4 mg/dL (<=11.9); Urine Culture Indicated YES-FRMC
[2025-04-18 05:07] LABS: Complement C3, Serum 161 mg/dL (82-167); Complement C4, Serum 45 mg/dL (12-38)
[2025-04-20 10:08] LABS: Antinuclear Antibodies, IFA Positive (.)
[2025-04-20 22:08] LABS: Anti-MPO Antibodies <0.2 units (0.0-0.9); Anti-PR3 Antibodies <0.2 units (0.0-0.9); Cytoplasmic (C-ANCA) <1:20 titer (Neg:<1:20); Perinuclear (P-ANCA) <1:20 titer (Neg:<1:20)
== END 2025-04-16 16:09 | disposition home or self-care (01) ==
PROVIDERS: PCP Family Medicine; Visit Provider Internal Medicine
DX: I12.9 Hypertensive chronic kidney disease with stage 1 through stage 4 chronic kidney disease, or unspecified chronic kidney disease (principal); N18.9 Chronic kidney disease, unspecified; N17.9 Acute kidney failure, unspecified; N18.30 Chronic kidney disease, stage 3 unspecified; E78.5 Hyperlipidemia, unspecified; R82.998 Other abnormal findings in urine
CPT/HCPCS: 36415; 80069; 81001; 82570; 83516; 84156; 86037; 86038; 86160; 87086

== ENCOUNTER 2025-04-17 12:39 | Outpatient (OUT) | payer MEDICARE, SELFPAY ==
--- NOTE | 2025-04-17 12:45 | US_ITS ---
The [address] [address] Patient Name: EPI MUSTAFA MRN: [id number] date: 1945 Sex: F Assigned Patient Location: [place] Current Patient Location: [place] Accession/Order Number: [id number] Exam Date: 04/17/2025 14:23 Report Date: 04/17/2025 14:24 At the request of: SKYLAR SHERIFF Procedure: US renal BI BILATERAL RENAL AND BLADDER ULTRASOUND CLINICAL HISTORY: Stage 3 Chronic Kidney Disease, Acute Kidney Injury COMPARISON: None Estimation of renal size is approximately 9.0 cm on the right and 9.5 cm on the left. No shadowing calculi or hydronephrosis are identified. No renal mass lesions were imaged. There is no perinephric fluid. The urinary bladder is partially distended with a volume of 240 mL. No contour or intraluminal abnormalities are seen. US/US renal BI IMPRESSION: NO OBSTRUCTIVE UROPATHY. Impression dictated by: Billie Houston M.D. 04/17/2025 2:24 PM Dictation Location: [place] [address] Electronically authenticated by: [id number] Y Date: 04/17/2025 14:24
== END 2025-04-17 12:40 | disposition home or self-care (01) ==
LOC: US 12:40
PROVIDERS: PCP Family Medicine; Visit Provider Internal Medicine
DX: E78.5 Hyperlipidemia, unspecified (principal); I12.9 Hypertensive chronic kidney disease with stage 1 through stage 4 chronic kidney disease, or unspecified chronic kidney disease; N18.30 Chronic kidney disease, stage 3 unspecified; N17.9 Acute kidney failure, unspecified; N18.9 Chronic kidney disease, unspecified
CPT/HCPCS: 76775

== ENCOUNTER 2025-05-05 07:43 | Outpatient (RCR) | payer MEDICARE, SELFPAY ==
[2025-04-14 10:05] VITALS: BP 114/65; PULSE 69; TEMP 36.8; O2SAT 98
[2025-04-14 10:13] LABS: Basophils Absolute Auto 0.1 10^3/uL (0.0-0.1); Basophils Percent Auto 0.8 % (0.2-2.0); Eosinophils Absolute Auto 0.2 10^3/uL (0.0-0.7); Eosinophils Percent Auto 3.7 % (0.9-7.0); Hematocrit 29.9 % (36.0-48.0); Immature Granulocytes Abs Auto 0.04 10^3/uL (0.00-0.03); Immature Granulocytes Pct Auto 0.7 % (0.0-0.5); Lymphocytes Absolute Auto 1.2 10^3/uL (1.2-3.8); Mean Corpuscular HGB Conc 33.4 g/dL (29.9-35.2); Mean Corpuscular Hemoglobin 36.1 pg (26.7-34.0); Mean Corpuscular Volume 107.9 fL (81.0-99.0); Mean Platelet Volume 9.1 fL (9.5-13.5); Monocytes Absolute Auto 1.2 10^3/uL (0.3-0.8); Monocytes Percent Auto 19.3 % (1.7-12.0); Neutrophils Absolute Auto 3.3 10^3/uL (1.4-6.5); Neutrophils Percent Auto 55.5 % (43.0-75.0); Platelet Count 262 10^3/uL (150-450)
[2025-04-14 10:29] LABS: Red Blood Count 2.77 10^6/uL (4.20-5.40)
[2025-04-14 10:30] LABS: Alanine Aminotransferase 22 U/L (14-59); Albumin Globulin Ratio 0.8; Alkaline Phosphatase 108 U/L (46-116); Anion Gap 15.4; Aspartate Amino Transferase 17 U/L (15-37); BUN Creatinine Ratio 10.4; Bilirubin Total 0.6 mg/dL (0.2-1.0); Calcium 9.2 mg/dL (8.5-10.1); Carbon Dioxide 25.8 mmol/L (21.0-32.0); Chloride 97 mmol/L (98-107); Estimated GFR (African America 23 (>=60 mL/min/1.73m^2); Estimated GFR (Non-African Ame 19 (>=60 mL/min/1.73m^2); Globulin 3.7 g/dL; Glucose 122 mg/dL (74-106); Potassium 4.2 mmol/L (3.5-5.1); Sodium 134 mmol/L (136-145); Total Protein 6.7 g/dL (6.4-8.2)
[2025-04-14 11:45] VITALS: BP 122/64; PULSE 72; TEMP 36.8; O2SAT 99
[2025-04-14] MEDS: 0.9 % SODIUM CHLORIDE 1,000 ML 500 ML IV (11:55)
[2025-04-14 12:02] LABS: Bilirubin Urine NEGATIVE (NEGATIVE); Blood Urine NEGATIVE (NEGATIVE); Clarity Urine CLEAR (CLEAR); Color Urine LT. YELLOW (YELLOW); Glucose Urine UA NEGATIVE (NEGATIVE); Ketones Urine NEGATIVE (NEGATIVE); Leukocyte Esterase Urine SMALL (NEGATIVE); Nitrite Urine NEGATIVE (NEGATIVE); Protein Urine NEGATIVE (NEG/TRACE); Specific Gravity Urine <=1.005 (1.005-1.025); Urobilinogen Urine 0.2 EU/dL (0.2-1.0)
--- NOTE | 2025-04-14 12:58 | PC.NURSE ---
IVF completed at this time. IV d/c'd, pressure to site. Dr. Vazquez to chairside too speak with pt.
[2025-04-28 13:20] VITALS: BP 111/64; PULSE 60; TEMP 36.6; O2SAT 96
[2025-04-28 13:26] LABS: Basophils Percent Auto 0.5 % (0.2-2.0); Eosinophils Absolute Auto 0.1 10^3/uL (0.0-0.7); Eosinophils Percent Auto 1.7 % (0.9-7.0); Hematocrit 29.3 % (36.0-48.0); Hemoglobin 9.7 g/dL (12.0-16.0); Immature Granulocytes Abs Auto 0.21 10^3/uL (0.00-0.03); Immature Granulocytes Pct Auto 2.6 % (0.0-0.5); Lymphocytes Absolute Auto 1.5 10^3/uL (1.2-3.8); Lymphocytes Percent Auto 18.1 % (20.5-60.0); Mean Corpuscular HGB Conc 33.1 g/dL (29.9-35.2); Mean Corpuscular Hemoglobin 35.7 pg (26.7-34.0); Mean Corpuscular Volume 107.7 fL (81.0-99.0); Mean Platelet Volume 8.6 fL (9.5-13.5); Monocytes Absolute Auto 1.1 10^3/uL (0.3-0.8); Neutrophils Absolute Auto 5.2 10^3/uL (1.4-6.5); Neutrophils Percent Auto 63.1 % (43.0-75.0); Platelet Count 308 10^3/uL (150-450); Red Blood Count 2.72 10^6/uL (4.20-5.40); Red Cell Distribution Width 17.1 % (11.0-15.0); White Blood Count 8.2 10^3/uL (4.0-11.0)
[2025-04-28 13:41] LABS: Alanine Aminotransferase 30 U/L (14-59); Albumin Level 3.3 g/dL (3.4-5.0); Alkaline Phosphatase 82 U/L (46-116); Anion Gap 17.2; Aspartate Amino Transferase 16 U/L (15-37); BUN Creatinine Ratio 13.9; Bilirubin Total 0.4 mg/dL (0.2-1.0); Calcium 9.4 mg/dL (8.5-10.1); Carbon Dioxide 26.1 mmol/L (21.0-32.0); Chloride 97 mmol/L (98-107); Estimated GFR (African America 30 (>=60 mL/min/1.73m^2); Estimated GFR (Non-African Ame 25 (>=60 mL/min/1.73m^2); Globulin 3.4 g/dL; Glucose 119 mg/dL (74-106); Potassium 5.3 mmol/L (3.5-5.1); Sodium 135 mmol/L (136-145); Total Protein 6.7 g/dL (6.4-8.2)
[2025-04-28] MEDS: EPOETIN ALFA 20,000 UNIT/2 ML VIAL 40000 UNIT SUBQ (13:47)
[2025-05-05 10:12] LABS: Basophils Percent Auto 0.7 % (0.2-2.0); Eosinophils Absolute Auto 0.2 10^3/uL (0.0-0.7); Eosinophils Percent Auto 3.9 % (0.9-7.0); Hematocrit 31.5 % (36.0-48.0); Hemoglobin 10.5 g/dL (12.0-16.0); Immature Granulocytes Abs Auto 0.03 10^3/uL (0.00-0.03); Immature Granulocytes Pct Auto 0.7 % (0.0-0.5); Lymphocytes Percent Auto 25.4 % (20.5-60.0); Mean Corpuscular HGB Conc 33.3 g/dL (29.9-35.2); Mean Corpuscular Hemoglobin 35.7 pg (26.7-34.0); Mean Corpuscular Volume 107.1 fL (81.0-99.0); Mean Platelet Volume 8.8 fL (9.5-13.5); Monocytes Absolute Auto 0.6 10^3/uL (0.3-0.8); Monocytes Percent Auto 15.6 % (1.7-12.0); Neutrophils Absolute Auto 2.2 10^3/uL (1.4-6.5); Neutrophils Percent Auto 53.7 % (43.0-75.0); Platelet Count 250 10^3/uL (150-450); Red Blood Count 2.94 10^6/uL (4.20-5.40); White Blood Count 4.1 10^3/uL (4.0-11.0)
[2025-05-05 10:32] LABS: Alanine Aminotransferase 28 U/L (14-59); Albumin Globulin Ratio 0.9; Albumin Level 3.3 g/dL (3.4-5.0); Alkaline Phosphatase 83 U/L (46-116); Anion Gap 13.3; Aspartate Amino Transferase 15 U/L (15-37); BUN Creatinine Ratio 16.7; Bilirubin Total 0.5 mg/dL (0.2-1.0); Calcium 8.7 mg/dL (8.5-10.1); Carbon Dioxide 28.3 mmol/L (21.0-32.0); Chloride 98 mmol/L (98-107); Estimated GFR (African America 49 (>=60 mL/min/1.73m^2); Estimated GFR (Non-African Ame 41 (>=60 mL/min/1.73m^2); Globulin 3.7 g/dL; Glucose 107 mg/dL (74-106); Potassium 4.6 mmol/L (3.5-5.1); Sodium 135 mmol/L (136-145)
== END 2025-05-11 23:59 | disposition home or self-care (01) ==
LOC: HEMC 07:43
PROVIDERS: PCP Family Medicine; Visit Provider Internal Medicine Hematology & Oncology
DX: C78.01 Secondary malignant neoplasm of right lung (principal); E78.2 Mixed hyperlipidemia; D64.81 Anemia due to antineoplastic chemotherapy; Z90.13 Acquired absence of bilateral breasts and nipples; I25.10 Atherosclerotic heart disease of native coronary artery without angina pectoris; Z85.3 Personal history of malignant neoplasm of breast; R07.89 Other chest pain; D63.1 Anemia in chronic kidney disease; N18.9 Chronic kidney disease, unspecified; I12.9 Hypertensive chronic kidney disease with stage 1 through stage 4 chronic kidney disease, or unspecified chronic kidney disease; R06.02 Shortness of breath; R82.998 Other abnormal findings in urine
CPT/HCPCS: 36415; 80053; 80061; 81003; 85025; 87086; 96372; G0463; J0885

== ENCOUNTER 2025-05-05 09:52 | Outpatient (OUT) | payer MEDICARE, SELFPAY ==
--- OUTSIDE RECORDS SUMMARY | 2025-05-05 09:57 | XMS_ITS | Clinical Summary ---
Author Organization [facility] Address [address] [place], [place] [id number] Care Team Providers Care Radio Producer Name Role Phone Unavailable Primary Care Provider Unavailabl e Social History Tobacco Use Types Packs/Day Years Used Date Smoking Tobacco: Never Assessed Comments Unknown Sex and Gender Information Value Date Recorded Sex Assigned at Not on file Legal Sex Female 9:09 AM EST Gender Identity Not on file Sexual Orientation Not on file Plan of Treatment Health Maintenance Due Date Last Done Comments Anxiety Screening 01/18/1962 Depression Screening 01/18/1962 DTaP,Tdap,Td Vaccine (1 - Tdap) 01/18/1963 Diabetes Screening 01/18/1989 Pneumococcal Vaccine: 50+ (1 of 1 - PCV) 01/18/1994 Shingrix Vaccine (1 of 2) 01/18/1994 Bone Density Screening 01/18/2009 RSV Vaccine (1 - 1-dose 75+ series) 01/18/2019 Covid-19 Vaccine ( - season) 2024 Advance Directive Discussion 11/12/2024 Influenza Vaccine (Season Ended) 2025
--- OUTSIDE RECORDS SUMMARY | 2025-05-05 09:57 | XMS_ITS | Encounter Summary ---
Author Organization [facility] Address [id number] [address] [place] [address] Care Team Providers Care Orthodontic Laboratory Technician Name Role Phone Lucia Esteban MD Primary Care Provider Encounter Details Date Type Department Care Team (Late st Contact Info) Description 12/02/2024 Orders Only [facility] [address] [place] [address] External, Scanning Provider Pain (Primary Dx) Social History Tobacco Use Types Packs/Day Years Used Date Smoking Tobacco: Never Smokeless Tobacco: Never Alcohol Use Standard Drinks/Week Comments Yes 6 (1 standard drink = 0.6 oz pur e alcohol) PHQ-2 Answer Date Recorded Total Score 0 07/23/2020 Childcare Answer Date Recorded Childcare Unknown 04/23/2019 Employment Answer Date Recorded Employment Unknown 04/23/2019 Hunger Screening Answer Date Recorded Within the past 12 months we worried whether our food would run out before we got money to buy more. Never True 10/26/2023 Within the past 12 months th e food we bought just didn't last and we didn't have money to get more. Never True 10/26/2023 Purpose - Life Answer Date Recorded Purpose and direction in life Unknown Comments No Sex and Gender Information Value Date Recorded Sex Assigned at Female 08/01/2020 1:46 PM EDT Legal Sex Female 11:45 AM EDT Gender Identity Female 08/01/2020 1:46 PM EDT Sexual Orientation Not on file documented as of this encounter Plan of Treatment Upcoming Encounters Date Type Department Care Team (Late st Contact Info) Description 05/21/2025 2:30 PM EDT Office Visit [facility] [address] [place] [phone] María Thapa, DO [address] [address] documented as of this encounter Results * CT chest without contrast (11/14/2024 3:05 PM EST) us Scanning Provider External IMG CT ORDERABLES Fin al Result documented in this encounter Visit Diagnoses Diagnosis Pain- Primary Generalized pain documented in this encounter Additional Health Concerns Assessment Noted Time PHQ-9 Depression Total Score: 0 07/23/20 9:59 AM EDT A Body Mass Index follow-up plan has been documented for the patient 08/02/2020 3:34 PM EDT documented as of this encounter Care Teams Orthodontic Laboratory Technician Relationship Specialty Start Date End Date Lucia Esteban MD [address] [place] [id number] PCP - General 05/04/15 documented as of this encounter
--- OUTSIDE RECORDS SUMMARY | 2025-05-05 09:57 | XMS_ITS | Encounter Summary ---
Author Organization [facility] Address [id number] [address] [place] [address] Care Team Providers Care Night Shift Supervisor Name Role Phone Lucia Esteban MD Primary Care Provider Encounter Details Date Type Department Care Team (Late st Contact Info) Description 04/23/2025 Orders Only [facility] [address] [place] [phone] External, Scanning Provider Social History Tobacco Use Types Packs/Day Years [...] got money to buy more. Never True 03/30/2025 Within the past 12 months th e food we bought just didn't last and we didn't have money to get more. Never True 03/30/2025 Purpose - Life Answer Date Recorded Purpose [...] Office Visit [facility] [address] [place] [place] [address] María Thapa, DO [address] [address] documented as of this encounter Procedures Procedure Name Priority Date/Time Associated Diagnosis Comments PULMONARY FUNCTION TEST Routine 02/18/2025 12:58 PM EDT documented in this encounter Results * Pulmonary function test (02/18/2025 12:58 PM EDT) us Scanning Provider External PFT ORDERABLES Final Result MANUALLY TRANSCRIBED RESULTS documented in this encounter Visit Diagnoses Not on filedocumented in this encounter Additional Health Concerns Assessment Noted Time PHQ-9 Depression Total Score: 0 07/23/20 9:59 AM EDT A Body Mass Index follow-up plan has been documented for the patient 08/02/2020 3:34 PM EDT documented as of this encounter Care Teams Night Shift Supervisor Relationship Specialty Start Date End Date Lucia Esteban MD [address] [place] [address] PCP - General 05/04/15 documented as of this encounter
--- OUTSIDE RECORDS SUMMARY | 2025-05-05 09:57 | XMS_ITS | Clinical Summary ---
Author Organization [employer] Address [id number] [address] [place] [address] Care Team Providers Care Inventory Controller Name Role Phone Lucia Esteban MD Primary Care Provider + [phone] Allergies Active Allergy Reactions Criticality Noted Date Comments Pregabalin Other (See Comments) 12/20/2017 Depression Penicillins Other (See Comments) 12/20/2017 Flu like symptoms Promethazine Other (See Comments) 12/20/2017 Agitation Medications DULoxetine (CYMBALTA) 60 mg capsuleIndicatio ns:fibromyalgia Take 1 capsule (60 mg total) by mouth nightly Indications: disorder characterized by stiff, tender & painful muscles. Active lisinopril (PRINIVIL,ZESTRI L) 10 mg tabletIndication s:hypertension Take 1 tablet (10 mg total) by mouth in the morning. Indications: high blood pressure. Active atorvastatin (LIPITOR) 20 mg tabletIndication s:hyperlipidemia Take 1 tablet (20 mg total) by mouth nightly Indications: excessive fat in the blood. Active acetaminophen (TYLENOL) 325 mg tabletIndication s:pain Take 2 tablets (650 mg total) by mouth every 6 (six) hours as needed for pain Indications: pain. Active diphenhydrAMINE- acetaminophen (TYLENOL PM) 25-500 mg tablet Take 0.5 tablets by mouth nightly as needed for sleep. Active metoprolol succinate XL (TOPROL-XL) 25 mg 24 hr tabletIndication s:hypertension Take 1 tablet (25 mg total) by mouth in the morning. Indications: high blood pressure. Active multivit-mineral s/ferrous fum (MULTI VITAMIN ORAL) Take by mouth. Activ e cholecalciferol, vitamin D3, 2,000 units capsuleIndicatio ns:vitamin D deficiency Take 1 capsule (2,000 Units total) by mouth in the morning. Indications: low vitamin D levels. Active erythromycin (ILOTYCIN) ophthalmic ointment 06/24/20 Active meclizine (ANTIVERT) 25 mg tabletIndication s:motion sickness Take 1 tablet (25 mg total) by mouth 3 (three) times a day as needed Indications: motion sickness. Active gabapentin (NEURONTIN) 300 mg capsuleIndicatio ns:Meningioma (CMS-HCC) Take 1 capsule (300 mg total) by mouth 3 (three) times a day. 90 capsule 3 08/23/20 Active Additional Information Patient taking differently:300 mg oral 3 times daily,Indications: neuropathic pain, Reported on 02/19/2025 amitriptyline (ELAVIL) 10 mg tabletIndication s:anxiety,insomn ia Take 2 tablets (20 mg total) by mouth nightly Indications: anxious, difficulty sleeping. Active aspirin 81 mg chewable tablet Chew 1 tablet (81 mg total) and swallow in the morning. prevention. Active omeprazole (PriLOSEC) 20 mg capsule TAKE 1 CAPSULE(20 MG) BY MOUTH IN THE MORNING AND AT BEDTIME 180 capsule 3 12/11/19 25 Active Additional Information Patient taking differently:20 mg oral2 times daily, TAKE 1 CAPSULE(20 MG) BY MOUTH IN THE MORNING AND AT BEDTIME,Indications: gastroesophageal reflux disease, Reported on 02/19/2025 letrozole (FEMARA) 2.5 mg chemo tablet Take 1 tablet by mouth daily Possible early breast cancer Active hydroCHLOROthiaz osvaldo (MICROZIDE) 12.5 mg capsule Take 1 capsule (12.5 mg) by mouth in the morning. 01/30/20 25 026 Active montelukast (SINGULAIR) 10 mg tablet Take 1 tablet (10 mg total) by mouth nightly. 02/07/20 25 Active albuterol (PROVENTIL,YAIMA EDITA) 2.5 mg /3 mL (0.083 %) nebulizer solutionIndicati ons:Moderate persistent asthma without complication Inhale 3 mL (2.5 mg total) by nebulization 4 (four) times a day as needed for wheezing. 75 mL 12 02/20/20 25 Active albuterol (PROVENTIL HFA;VENTOLIN HFA) 90 mcg/actuation inhalerIndicatio ns:Moderate persistent asthma without complication Inhale 2 puffs every 6 (six) hours as needed for wheezing. 18 g 11 02/20/20 25 Active fluticasone furoate-vilanter oL (BREO ELLIPTA) 200-25 mcg/dose blister with deviceIndication s:Moderate persistent asthma without complication Inhale 1 puff in the morning. 60 each 6 02/21/20 25 Active Active Problems Problem Noted Date Diagnosed Date Dyspnea on exertion 02/19/2025 History of breast cancer in female 12/11/2024 Pulmonary nodules/lesions, multiple 12/11/2024 Gastroesophageal reflux disease without esophagi tis 12/11/2024 Diverticulosis large intesti ne w/o perforation or abscess w/o bleeding 08/02/2020 Dark stools 07/13/2020 Encounter for colonoscopy du e to history of adenomatous colonic polyps 07/13/2020 Meningioma 01/31/2019 Arthritis of left knee 01/14/2018 Encounters Date Type Department Care Team Description 04/23/2025 Orders Only [facility] [address] [place] [address] External, Scanning Provider 03/30/2025 1:01 PM EDT - 03/30/2025 2:31 PM EDT Emergency [facility] - Emergency Department [address] [facility] [place] [phone] Discharge Disposition: Left Without Treatment 03/17/2025 Telephone [facility] [address] [address] Renae Torres RN 03/13/2025 Orders Only [facility] [address] [address] Ref Prov, Not In System 02/20/2025 Telephone [facility] [address] [place] [address] Patricia Velazquez, RATNA 02/20/2025 Orders Only [facility] [address] [phone] María Thapa, DO Moderate persistent asthma without complication (Primary Dx) 02/19/2025 10:45 AM EDT Office Visit [facility] [address] [place] [phone] María Thapa, Pulmonary nodules/lesions, multiple (Primary Dx); Dyspnea on exertion; Moderate persistent asthma without complication 02/16/2025 Travel 02/12/2025 Telephone [facility] [address] [place] [phone] Patricia Velazquez, RATNA from Last 3 Months Family History Medical History Relation Name Comments No Known Problems Brother 1 No Known Problems Brother 2 No Known Problems Daughter 1 No Known Problems Daughter 2 No Known Problems Daughter 3 Cancer Father Timothy Lagrou Heart disease Father Timothy Lagrou Hypertension Father Timothy Lagrou Prostate cancer Father Timothy Lagrou Stroke Father Timothy Lagrou Arthritis Mother Clair Lagrou Cancer Mother Clair Lagrou Hypertension Mother Clair Lagrou Lung cancer Mother Clair Lagrou No Known Problems Son Relation Name Status Comments Brother 1 (Age 75) Brother 2 Alive Daughter 1 Alive Daughter 2 Alive Daughter 3 Alive Father Timothy Lagrou (Age 76) Mother Clair Lagrou (Age 64) Sister (Age 54) Son Alive Social History Tobacco Use Types Packs/Day Years Used Date Smoking Tobacco: Never Smokeless Tobacco: Never Tobacco Cessation:Counseling Given: Not Answered Alcohol Use Standard Drinks/Week Comments Yes 6 [...] PM EDT Sexual Orientation Not on file Last Filed Vital Signs Vital Sign Reading Time Taken Comments Blood Pressure 177/78 03/30/2025 1:09 PM EDT Pulse 67 03/30/2025 1:09 PM EDT Temperature 36.4 C (97.5 F) 03/30/2025 1:09 PM EDT Respiratory Rate 20 03/30/2025 1:09 PM EDT Oxygen Saturation 97% 03/30/2025 1:09 PM EDT Inhaled Oxygen Concentration - - Weight 81.2 kg (179 lb 1.6 oz) 02/19/2025 10:51 AM EDT Height 152.4 cm (5') 02/19/2025 10:51 AM EDT Body Mass Index 34.98 02/19/2025 10:51 AM EDT Plan of Treatment Upcoming Encounters Date Type Department Care Team (Late st Contact Info) Description 05/21/2025 2:30 PM EDT Office Visit [facility] [address] [place] [address] María Thapa, DO [address] [place] [phone] Health Maintenance Due Date Last Done Comments Depression Screening 1957 DTaP,Tdap and Td Vaccines (1 - Tdap) 01/18/1963 Fall Risk Screening 01/18/2009 Zoster (Shingles) Vaccine (2 of 3) 07/19/20162015 COVID-19 Vaccine (3 - 2023-2 5 season) 2024 01/13/2021, 12/16/2020 Influenza Vaccine 07/13/2025 10/22/2024, , 09/03/2020 Tobacco Screening 02/19/2026 02/19/2025 Medical Devices Implanted Type Area Guide Rail Cleaner Device Identifier Shelf Expiration Date Model / Serial / Lot Cement Bn Palacos Radpq 40g Rpl [id number] - Sn/A - [id number] Implanted:Qty: 2 on 01/15/2018 by Pepe Jeffries Jr., DO at [facility] Cement Left: Knee [employer] 03/11/2022 [id number] / N/A / [id number] Cmpt Fem D Kn Lt Lpsflx Gndr Rpl [id number] - Sn/A - [id number] Implanted:Qty: 1 on 01/15/2018 by Pepe Jeffries Jr., DO at [facility] Orthopedic Implant Left: Knee [employer] 09/11/2027 [id number] / N/A / [id number] Ins Artc 3-4 C-D 10mm Kn Fx - Sn/A - [id number] Implanted:Qty: 1 on 01/15/2018 by Pepe Jeffries Jr., DO at [facility] Orthopedic Implant Left: Knee [employer] [id number] 10/11/2022 [id number] / N/A / [id number] Cmpt Ptlr 32mm Nxgn Alply Rpl [id number] - Sn/A - [id number] Implanted:Qty: 1 on 01/15/2018 by Pepe Jeffries Jr., DO at [facility] Orthopedic Implant Left: Knee [employer] [id number] 32 12/12/2025-5972-065 -32 / N/A / [id number] Plt Tib [id number] Nxgn Kn Cmnt Rpl [id number] + [id number] - Sn/A - [id number] Implanted:Qty: 1 on 01/15/2018 by Pepe Jeffries Jr., DO at [facility] Plate Left: Knee [employer] 01/10/2028 [id number] / N/A / [id number] Explanted Type Area Guide Rail Cleaner Device Identifier Shelf Expiration Date Model / Serial / Lot Scr Gd 48mm Qd-Spr Kn Hd Mis - Sn/A - [id number] Explanted:Qty: 2 on 01/15/2018 by Pepe Jeffries Jr., [facility] at [facility] Screw Left: Knee [employer] 01/10/2028 [id number] / N/A / [id number] Scr Bn Parag 35mm 6.5mm Hip St Rpl [id number] + [id number] + 32 - Sn/A - [id number] Explanted:Qty: 2 on 01/15/2018 by Pepe Jeffries Jr., DO at [facility] Screw Left: Knee [employer] 11/11/2027 [id number] / N/A / [id number] Procedures Procedure Name Priority Date/Time Associated Diagnosis Comments ER EXTRA URINE STAT 03/30/2025 4:28 PM EDT ECG 12-LEAD STAT 03/30/2025 1:15 PM EDT EXTERNAL LAB ORDERS / RESULTS Routine 03/17/2025 10:12 AM EDT EOSINOPHIL COUNT Routine 03/03/2025 12:0 9 PM EDT PULMONARY FUNCTION TEST Routine 02/18/2025 12:58 PM EDT from Last 3 Months Results * Extra Urine (03/30/2025 4:28 PM EDT) Extra Tube Auto Resulted 03/30/2025 6:02 PM EDT [facility] Urine Urine specimen collection, clean catch / Unknown 03/30/2025 4:28 PM EDT 03/30/2025 4:28 PM EDT us Ignacio White MD URINE ORDERABLES Final Resul t [facility] [address] [place] [address], [place] [phone] * ECG 12 lead (03/30/2025 1:15 PM EDT) 03/30/2025 1:15 PM EDT Narrative [facility]AC[facility] - 04/14/2025 12:26 PM EDT us Ignacio White MD ECG ORDERABLES Final Result Performing Organization Address City/[facility] Co de Phone Number TRACEM[facility]ERV[facility] * External Lab Orders / Results (03/17/2025 10:12 AM EDT) us Natasha Vazquez MD LAB ORDERABLES Final Result * Eosinophil, Total (03/03/2025 12:09 PM EDT) Blood Venous blood / Unknown us Not In System Ref Prov LAB BLOOD ORDERABLES Di l Result Performing Organization Address [facility] Co de Phone Number MANUALLY TRANSCRIBED RESULTS * Pulmonary function test (02/18/2025 12:58 PM EDT) us Scanning Provider External PFT ORDERABLES Final Result Performing Organization Address [facility] Co de Phone Number MANUALLY TRANSCRIBED RESULTS from Last [address] [facility] Care Teams Inventory Controller Relationship Specialty Start Date End Date Lucia Esteban MD [address] [place] [phone] PCP - General 05/04/15
--- OUTSIDE RECORDS SUMMARY | 2025-05-05 09:57 | XMS_ITS | Encounter Summary ---
Author Organization [employer] Address [id number] [address] [place] [address] Care Team Providers Care Log Deck Tender Name Role Phone Lucia Esteban MD Primary Care Provider Encounter Details Date Type Department Care Team (Late st Contact Info) Description 12/30/2024 [facility]phone [facility] [address] [address] Renae Torres RN Social History Tobacco Use Types Packs/Day Years [...] got money to buy more. Never True 12/22/2024 Within the past 12 months th e food we bought just didn't last and we didn't have money to get more. Never True 12/22/2024 Purpose - Life Answer Date Recorded Purpose and direction in life Unknown Comments No Sex and Gender Information Value Date Recorded Sex Assigned at Female 08/01/2020 1:46 PM EDT Legal Sex Female 11:45 AM EDT Gender Identity Female 08/01/2020 1:46 PM EDT Sexual Orientation Not on file documented as of this encounter Miscellaneous Notes * Telephone Encounter - Renae Torres RN - 12/30/2024 12:55 PM EST SURGICAL PATH REPORT ----- Message from Dr. María Thapa DO sent at 12/30/2024 12:41 PM EST ----- Patient called and results reviewed. All questions answered. Results forwarded to patient's oncologist Dr. Vazquez and PCP as well. documented in this encounter Plan of Treatment Upcoming Encounters Date Type Department Care Team (Late st Contact Info) Description 05/21/2025 2:30 PM EDT Office Visit [facility] [address] [facility] [address] María Thapa DO [address] [address] documented as of this encounter Visit Diagnoses Not on filedocumented in this encounter Additional Health Concerns Assessment Noted Time PHQ-9 Depression Total Score: 0 07/23/20 9:59 AM EDT A Body Mass Index follow-up plan has been documented for the patient 08/02/2020 3:34 PM EDT documented as of this encounter Care Teams Log Deck Tender Relationship Specialty Start Date End Date Lucia Esteban MD [address] [place] [phone] PCP - General 05/04/15 documented as of this encounter
--- OUTSIDE RECORDS SUMMARY | 2025-05-05 09:57 | XMS_ITS | Clinical Summary ---
Author Organization [facility] Address [address] [facility] [place] [address] Care Team Providers Care Tank Builder Supervisor Name Role Phone Lucia Esteban MD Unavailable [phone] Lucia Esteban MD Primary Care Provider [phone] Allergies Active Allergy Reactions Criticality Noted Date Comments Penicillins Headache 12/20/2017 Other Reaction(s): n/v, Other (See Comments) Flu like symptoms Pregabalin Dizziness,Headache,O ther ,Shortness of breath High 12/20/2017 Other Reaction(s): depression/ weight gain, Other (See Comments) Depression Promethazine Anxiety,Dizziness,Herrera lluc inations,Itching,Other,P alpitations Low 12/20/2017 Other Reaction(s): aggitation, Other (See Comments) Agitation Medications amitriptyline (Elavil) 10 MG tablet Active isosorbide mononitrate ER (Imdur) 30 MG 24 hr tablet 1 (one) time each day at the same time Active gabapentin (Neurontin) 300 MG capsule 1 capsule every 12 (twelve) hours Active omeprazole (PriLOSEC) [address] capsule Take 20 mg by mouth in the morning. Active lisinopril 10 MG tablet 1 (one) time each day at the same time Active metoprolol succinate XL (Toprol-XL) 25 MG 24 hr tablet metoprolol succinate ER 25 mg tablet,extended release 24 hr Active DULoxetine (Cymbalta) [address] capsule Take 60 mg by mouth at bedtime Active Multiple Vitamin (Multivitamin Adult) tablet as directed Orally Active acetaminophen (Tylenol Extra Strength) 500 MG tablet every 6 (six) hours Active diphenhydrAMINE- acetaminophen (Tylenol PM Extra Strength) 25-500 MG per tablet 1 (one) time each day at the same time Active palbociclib (Ibrance) 125 MG chemo capsule Take 125 mg by mouth Daily with meals. Swallow whole. Active Active Problems No known active problems Encounters Date Type Department Care Team Description 03/30/2025 Results Follow-Up [facility] [address] [place] [address] Leroy Carranza PA 03/28/2025 Clinisync Result Encounter [facility] External Department Unsolicited Leroy Carranza PA 02/06/2025 11:30 AM EDT Office Visit [facility] [address] [place] [address] Leroy Carranza PA Acute pain of right knee (Primary Dx); Arthritis of right knee 02/06/2025 Bamboo flowsheet [facility] [address] [facility] [address] Leroy Carranza PA 02/06/2025 Travel from Last 3 Months Family History Medical History Relation Name Comments Cancer Father Hypertension Father Stroke Father Cancer Mother Diabetes Mother Hypertension Mother Relation Name Status Comments Father Mother Social History Tobacco Use Types Packs/Day Years Used Date Smoking Tobacco: Never Smokeless Tobacco: Never Alcohol Use Standard Drinks/Week Comments Yes 0 (1 standard drink = 0.6 oz pur e alcohol) Comments Unknown Sex and Gender Information Value Date Recorded Sex Assigned at Female 04/05/2024 5:14 PM EDT Legal Sex Female 8:00 PM EDT Gender Identity Female 04/05/2024 5:14 PM EDT Sexual Orientation Straight 04/05/2024 5: 14 PM EDT Last Filed Vital Signs Vital Sign Reading Time Taken Comments Blood Pressure 132/80 01/08/2019 12:00 PM EST Pulse - - Temperature - - Respiratory Rate - - Oxygen Saturation - - Inhaled Oxygen Concentration - - Weight 79.8 kg (176 lb) 04/16/2024 9:10 AM EDT Height 157.5 cm (5' 2 ) 04/16/2024 9:10 AM EDT Body Mass Index 32.19 04/16/2024 9:10 AM EDT Plan of Treatment Health Maintenance Due Date Last Done Comments Pneumococcal Vaccine: 65+ Ye ars (2 of 2 - PCV) 10/09/2018 10/09/2017 Influenza Vaccine Completed 10/22/2024, 09/09/2020 Procedures Procedure Name Priority Date/Time Associated Diagnosis Comments URINE CULTURE - [facility] Routine 03/28/2025 5:58 PM EDT BLOOD CULTURE 2 Routine 03/28/2025 4:58 PM EDT BLOOD CULTURE 1 Routine 03/28/2025 4:51 PM EDT IN ARTHROCENTESIS ASPIR&/INJ MAJOR JT/BURSA W/O US Routine 02/06/2025 1:20 PM EDT Arthritis of right knee from Last 3 Months Results * URINE CULTURE - [facility] (03/28/2025 5:58 PM EDT) URINE CULTURE - [facility] Urine Culture - [facility] 30,000 colonies/ml mixed bacterial skin contaminants [facility] URINE CULTURE - [facility] 2 Days [facility] - [facility] Testing performed at [facility] URINE CULTURE - [facility] [address] [place] [address] [facility] 03/28/2025 5:58 PM EDT 03/28/2025 6:14 PM EDT Narrative [facility]IS[facility] - 03/31/2025 3:36 PM EDT us Leroy DAVILA LAB BLOOD ORDERABLES Final [facility] * BLOOD CULTURE 2 (03/28/2025 4:58 PM EDT) BLOOD CULTURE 2 Blood Culture 2 NG5D NO GROWTH AT 5 DAYS.^NO GROWTH AT 5 DAYS. [facility] 03/28/2025 4:58 PM EDT 03/28/2025 5:05 PM EDT Narrative CLINISYND - 04/03/2025 2:15 PM EDT RIGHT HAND Leroy DAVILA LAB BLOOD ORDERABLES Final Re sult Performing Organization Address [facility]/ZIP Co de Phone Number [facility] * BLOOD CULTURE 1 (03/28/2025 4:51 PM EDT) BLOOD CULTURE 1 Blood Culture 1 NG5D NO GROWTH AT 5 DAYS.^NO GROWTH AT 5 DAYS. [facility] 03/28/2025 4:51 PM EDT 03/28/2025 5:04 PM EDT Narrative [facility] - 04/03/2025 2:10 PM EDT LEFT AC Leroy DAVILA LAB BLOOD ORDERABLES Final Re sult Performing Organization Address [facility] Co de Phone Number [facility] * IN ARTHROCENTESIS ASPIR&/INJ MAJOR JT/BURSA W/O US (02/06/2025 1:20 PM EDT) Narrative Leroy Carranza PA - 02/06/2025 1:20 PM EDT LOLA Dickey 02/06/2025 1:22 PM L Inj/Asp: [...] discussed. Consent was given by the patient. Leroy DAVILA IN CLINIC/BEDSIDE ORDERABLES Final Result from Last 3 Months Insurance MEDICARE [employer] Care Teams Tank Builder Supervisor Relationship Specialty Start Date End Date Lucia Esteban MD [address] [place] [address] PCP - External PCP Family Medicine 04/21/23 Lucia Esteban MD [address] [place] [address] PCP - General Family Medicine 04/16/24
--- OUTSIDE RECORDS SUMMARY | 2025-05-05 09:57 | XMS_ITS | Encounter Summary ---
Author Organization [employer] Address [facility] [place] [id number] [address] [place] [address] Care Team Providers Care Industrial Gas Servicer Helper Name Role Phone Lucia Esteban MD Primary Care Provider + [phone] Reason for Visit * Reason Comments Med Refill Encounter Details Date Type Department Care Team ([facility] Contact Info) Description 01/29/2023 Refill [facility] [address] [place] [phone] Ignacio Augustine MD [address] [place] [address] [phone] Meningioma ([facility]) Social History Tobacco Use Types Packs/Day Years Used Date Smoking Tobacco: Never Smokeless Tobacco: Never Alcohol Use Standard Drinks/Week Comments Yes 6 (1 standard drink = 0.6 oz pur e alcohol) PHQ-2 Answer Date Recorded Total Score 0 07/23/2020 Childcare Answer Date Recorded Childcare Unknown 04/23/2019 Employment Answer Date Recorded Employment Unknown 04/23/2019 Purpose - Life Answer Date Recorded Purpose and direction in life Unknown Comments No Sex and Gender Information Value Date Recorded Sex Assigned at Female 08/01/2020 1:46 PM EDT Legal Sex Female 11:45 AM EDT Gender Identity Female 08/01/2020 1:46 PM EDT Sexual Orientation Not on file documented as of this encounter Plan of Treatment Upcoming Encounters Date Type Department Care Team ([facility] Contact Info) Description 05/21/2025 2:30 PM EDT Office Visit [facility] [address] [place] [address] María Thapa, DO [address] [address] documented as of this encounter Visit Diagnoses Diagnosis Meningioma (CMS-HCC) Benign neoplasm of cerebral meninges documented in this encounter Additional Health Concerns Assessment Noted Time PHQ-9 Depression Total Score: 0 07/23/20 20 9:59 AM EDT A Body Mass Index follow-up plan has been documented for the patient 08/02/2020 3:34 PM EDT documented as of this encounter Care Teams Industrial Gas Servicer Helper Relationship Specialty Start Date End Date Lucia Esteban MD [address] [place] [phone] PCP - General 05/04/15 documented as of this encounter
--- OUTSIDE RECORDS SUMMARY | 2025-05-05 09:57 | XMS_ITS | Encounter Summary ---
Author Organization [facility] tem Address [facility] [place]-[id number] [address] [place] [address] Care Team Providers Care Milling Machine Operator Name Role Phone Lucia Esteban MD Primary Care Provider [phone] Encounter Details Date Type Department Care Team (Late st Contact Info) Description 12/04/2024 Orders Only [facility] - Interventional Radiology [address] [place] [address] Natasha Vazquez MD [address] [place] [address] [address] [place], [place] [phone] Lung nodule (Primary Dx) Social History Tobacco Use Types [...] Office Visit [facility] [address] [place] [address] María Thapa, DO [address] [phone] documented as of this encounter Visit Diagnoses Diagnosis Lung nodule- Primary Other diseases of lung, not elsewhere classified documented in this encounter Additional Health Concerns Assessment Noted Time PHQ-9 Depression Total Score: 0 07/23/20 9:59 AM EDT A Body Mass Index follow-up plan has been documented for the patient 08/02/2020 3:34 PM EDT documented as of this encounter Care Teams Milling Machine Operator Relationship Specialty Start Date End Date Lucia Esteban MD [address] [place] [phone] PCP - General 05/04/15 documented as of this encounter
--- OUTSIDE RECORDS SUMMARY | 2025-05-05 09:57 | XMS_ITS | Encounter Summary ---
Author Organization [employer] tem Address [facility] [id number] [address] [place] [address] Care Team Providers Care Manager Bakery Name Role Phone Lucia Esteban MD Primary Care Provider + [phone] Reason for Referral * Specialty Diagnoses / Procedures Referred By David roa Referred To Contact Pulmonary Medicine [facility], A DEPARTMENT OF [address] [address] Phone: tel: Referral ID Status Reason Start Date Expiration Date Visits Re quested Visits Authorized Encounter Details Date Type Department Care Team (Late st Contact Info) Description 12/09/2024 [facility] [address] [place] [phone] Ref Prov, [place] [address] Social History Tobacco Use Types Packs/Day Years [...] Office Visit [facility]Sleep [facility] [address] [phone] María Thapa DO [address] [phone] documented as of this encounter Procedures Procedure Name Priority Date/Time Associated Diagnosis Comments AMB REFERRAL TO PULMONARY MEDICINE Routine 12/04/2024 7:44 AM EST documented in this encounter Results * Ambulatory referral to Pulmonary Medicine (12/04/2024 7:44 AM EST) us Not In System Ref Prov OUTPATIENT REFERRAL ORDER ELENA Final Result MANUALLY TRANSCRIBED RESULTS documented in this encounter Visit Diagnoses Not on filedocumented in this encounter Additional Health Concerns Assessment Noted Time PHQ-9 Depression Total Score: 0 07/23/20 9:59 AM EDT A Body Mass Index follow-up plan has been documented for the patient 08/02/2020 3:34 PM EDT documented as of this encounter Care Teams Manager Bakery Relationship Specialty Start Date End Date Lucia Esteban MD [address] [place] [address] PCP - General 05/04/15 documented as of this encounter
--- OUTSIDE RECORDS SUMMARY | 2025-05-05 09:57 | XMS_ITS | Clinical Summary ---
Author Organization Dmitriy Chavez [facility] Address [address] [place] [address] Care Team Providers Care Field Human Resources Manager Name Role Phone Lucia Esteban MD Primary Care Provider Social History Tobacco Use Types Packs/Day Years Used Date Smoking Tobacco: Never Assessed Comments Unknown Sex and Gender Information Value Date Recorded Sex Assigned at Not on file Legal Sex Female 1:08 PM EST Gender Identity Not on file Sexual Orientation Not on file Plan of Treatment Not on file Care Teams Field Human Resources Manager Relationship Specialty Start Date End Date Lucia Esteban MD [address] [place] [address] PCP - General 05/04/14
--- OUTSIDE RECORDS SUMMARY | 2025-05-05 09:57 | XMS_ITS | Encounter Summary ---
Author Organization [facility] [employer] tem Address [id number] [address] [place] [address] Care Team Providers Care Precision Aircraft Structure Assembler Name Role Phone Lucia Esteban MD Primary Care Provider [phone] Encounter Details Date Type Department Care Team (Late st Contact Info) Description 03/13/2025 Orders Only [facility] Pulmonary/Sleep Medicine [address] [phone] Ref Prov, [place] [address] Social History Tobacco Use Types Packs/Day Years [...] Office Visit [facility]/Sleep Medicine [address] [place] [phone] María Thapa, DO [address] [phone] documented as of this encounter Procedures Procedure Name Priority Date/Time Associated Diagnosis Comments EOSINOPHIL COUNT Routine 03/03/2025 12:09 PM EDT documented in this encounter Results * Eosinophil, Total (03/03/2025 12:09 PM EDT) Blood Venous blood / Unknown us Not In System Ref Prov LAB BLOOD ORDERABLES Di l Result MANUALLY TRANSCRIBED RESULTS documented in this encounter Visit Diagnoses Not on filedocumented in this encounter Additional Health Concerns Assessment Noted Time PHQ-9 Depression Total Score: 0 07/23/20 9:59 AM EDT A Body Mass Index follow-up plan has been documented for the patient 08/02/2020 3:34 PM EDT documented as of this encounter Care Teams Precision Aircraft Structure Assembler Relationship Specialty Start Date End Date Lucia Esteban MD [address] [place] [phone] PCP - General 05/04/15 documented as of this encounter
--- OUTSIDE RECORDS SUMMARY | 2025-05-05 09:57 | XMS_ITS | Encounter Summary ---
Author Organization [facility] Address [id number] [address] [place] [address] Care Team Providers Care House Admin Name Role Phone Lucia Esteban MD Primary Care Provider Encounter Details Date Type Department Care Team (Late st Contact Info) Description 12/04/2024 Orders Only [facility] [employer] [address] [place] [address] External, Scanning Provider Pain (Primary [...] Office Visit [facility] Pulmonary/Sleep Medicine [address] [place] [phone] María Thapa, DO [address] [address] documented as of this encounter Results * NON [facility] WHOLE BODY (12/02/2024 3:50 PM EST) us Scanning Provider External IMG PET ORDERABLES Fi nal Result documented in this encounter Visit Diagnoses Diagnosis Pain- Primary Generalized pain documented in this encounter Additional Health Concerns Assessment Noted Time PHQ-9 Depression Total Score: 0 07/23/20 9:59 AM EDT A Body Mass Index follow-up plan has been documented for the patient 08/02/2020 3:34 PM EDT documented as of this encounter Care Teams House Admin Relationship Specialty Start Date End Date Lucia Esteban MD [address] [place] [phone] PCP - General 05/04/15 documented as of this encounter
--- OUTSIDE RECORDS SUMMARY | 2025-05-05 09:57 | XMS_ITS | Encounter Summary ---
Author Organization [employer] tem Address [facility] [id number] [address] [place] [address] Care Team Providers Care Sales Representative Marine Supplies Name Role Phone Lucia Esteban MD Primary Care Provider Encounter Details Date Type Department Care Team (Late st Contact Info) Description 03/17/20[facility] [address] [phone] Renae Torres RN Social History [...] Telephone Encounter - Renae Torres RN - 03/17/2025 8:42 AM EDT Catering Associate attempted to contact patient. No answer. Left message for patient to contact office regarding lab result. Informed per Dr Thapa, RAP was unremarkable and recommend patient to keep f/u appt with physician. Left office phone number for any further questions/concerns documented in this encounter Plan of Treatment Upcoming Encounters Date Type Department Care Team (Late st Contact Info) Description 05/21/2025 2:30 PM EDT Office Visit [facility]Sleep [facility] [address] [place] [phone] María Thapa DO [address] [address] documented as of this encounter Visit Diagnoses Not on filedocumented in this encounter Additional Health Concerns Assessment Noted Time PHQ-9 Depression Total Score: 0 07/23/20 9:59 AM EDT A Body Mass Index follow-up plan has been documented for the patient 08/02/2020 3:34 PM EDT documented as of this encounter Care Teams Sales Representative [employer] Supp[employer] Relationship Specialty Start Date End Date Lucia Esteban MD [address] [place] [phone] PCP - General 05/04/15 documented as of this encounter
--- OUTSIDE RECORDS SUMMARY | 2025-05-05 09:57 | XMS_ITS | Encounter Summary ---
Author Organization [employer] Address [facility] [id number] [address] [place] [address] Care Team Providers Care Nuclear Process Engineer Name Role Phone Lucia Esteban MD Primary Care Provider Encounter Details Date Type Department Care Team (Late st Contact Info) Description 12/04/2024 Telephone [facility] [address] [phone] Shantel Vásquez RN Social History Tobacco Use Types Packs/Day [...] encounter Miscellaneous Notes * Telephone Encounter - Shantel Vásquez RN - 12/04/2024 5:33 PM EST PET films requested * Telephone Encounter - Shantel Vásquez RN - 12/04/2024 5:33 PM EST Discussed with Pt IR biopsy ordered? Message to Alessia NAJERA I will call pt back after I see date ofbiopsy * Telephone Encounter - Shatnel Vásquez RN - 12/04/2024 5:33 PM EST Per IF FNA denied documented in this encounter Plan of Treatment Upcoming Encounters Date Type Department Care Team (Late st Contact Info) Description 05/21/2025 2:30 PM EDT Office Visit [facility] [address] [place] [address] María Thapa, DO [address] [phone] documented as of this encounter Visit Diagnoses Not on filedocumented in this encounter Additional Health Concerns Assessment Noted Time PHQ-9 Depression Total Score: 0 07/23/20 9:59 AM EDT A Body Mass Index follow-up plan has been documented for the patient 08/02/2020 3:34 PM EDT documented as of this encounter Care Teams Nuclear Process Engineer Relationship Specialty Start Date End Date Lucia Esteban MD [address] [place] [address] PCP - General 05/04/15 documented as of this encounter
--- OUTSIDE RECORDS SUMMARY | 2025-05-05 09:57 | XMS_ITS | Encounter Summary ---
Author Organization [employer] Address [facility] [place]-[id number] [address] [place] [address] Care Team Providers Care Shaker Repairer Name Role Phone Lucia Esteban MD Primary Care Provider [phone] Encounter Details Date Type Department Care Team (Late st Contact Info) Description 10/23/2023 Orders Only [facility] NeuroSurgery [address] [place] [phone] Ignacio Augustine MD [address] [place] [address] [address] [place] [phone] Neuropathy Social History Tobacco Use Types Packs/Day Years [...] Office Visit [facility]/Sleep [facility] [address] [place] [address] María Thapa, DO [address] [address] Pending Results Name Type Priority Associated Diagnoses Date/Time Ambulatory referral to Neurology Outpatient Referral Routine Neuropathy 10/15/2023 1:10 PM EST documented as of this encounter Visit Diagnoses Diagnosis Neuropathy Mononeuritis of unspecified site documented in this encounter Additional Health Concerns Assessment Noted Time PHQ-9 Depression Total Score: 0 07/23/20 9:59 AM EDT A Body Mass Index follow-up plan has been documented for the patient 08/02/2020 3:34 PM EDT documented as of this encounter Care Teams Shaker Repairer Relationship Specialty Start Date End Date Lucia Esteban MD [address] [place] [phone] PCP - General 05/04/15 documented as of this encounter
--- OUTSIDE RECORDS SUMMARY | 2025-05-05 10:17 | XMS_ITS | CCD ---
Author Organization [facility] Care Team Providers Care Safe Expert Name Role Phone UNKNOWN, PROVIDER Admitting Unavailable [...] Unavailable CRESCENCIO, DR BERNABE Mejia Attending Unavailable CRESCNECIO, DR BERNABE Mejia Admitting Unavailable CRESCENCIO, DR BERNABE Mejia Attending Unavailable CRESCENCIO, DR BERNABE Mejia Admitting Unavailable CRESCENCIO, DR BERNABE Mejia Consulting Unavailable LOIR, DR LUCIA Mckeon Primary Care Unavailable CRESCENCIO, [...] Care Unavailable DISHA HARRIS Admitting Unavailabl e CLOSHAYLA, DISHA Sue Attending Unavailabl e MONCHO, DR NORBERTO Trammell Consulting Unavailable DISHA HARRIS Consulting Unavailabl e LORI, DR LUCIA Mckeon Primary Care Unavailable CJ FOX Admitting Unavailable ROSANNA, CJ Attending Unavailable MONCHO, DR NORBERTO Trammell Consulting Unavailable CJ FOX Consulting Unavailable LORI, DR LUCIA Mckeon Primary Care Unavailable FIDE CHUA Attending Unavailable FIDE CUHA Admitting Unavailable MONCHO, DR NORBERTO Trammell Consulting Unavailable FIDE CHUA Consulting Unavailable Lucia Esteban MD Unavailable Lucia Esteban MD Primary Care Provider LORI LUCIA A Referring Unavailable ESTEBAN, LUCIA [...] Unavailable ESTEBAN, LUCIA A Primary Care Unavailable ELIER, MARÍA M Attending Unavailable ESTEBAN, LUCIA A Referring Unavailable ESTEBAN, LUCIA A Primary Care Unavailable MARÍA THAPA Attending Unavailable TAYLOR, NATASHA Referring Unavailable ESTEBAN, LUCIA A Primary Care Unavailable RACHELLE, SAMAR Attending Unavailable RACHELLE, SAMAR Attending Unavailable RACHELLE, SAMAR Attending Unavailable RACHELLE, SAMAR Admitting Unavailable ESTEBAN, LUCIA A Primary Care Unavailable SAID AHMED, TAMER S Admitting Unavailable SAID AHMED, TAMER S Attending Unavailable ESTEBAN, LUCIA A Primary Care Unavailable ESTEBAN, LUCIA A Referring Unavailable ESTEBAN, LUCIA A Primary Care Unavailable Stefani Quezada MD Attending Provider Natasha Vazquez MD Attending Provider [phone] Shyam Crowell MD Attending Provider [phone] SocratesShyam anthony Attending Unavailable Socrates, Shyam Admitting Unavailable Taylor, Natasha Attending Unavailable Taylor, Natasha Admitting Unavailable Stefani Quezada Admitting Unavailable Stefani Quezada Attending Unavailable Allergies Allergy Classification Reported Allergen(s) Allergy Type Date of Onset Reaction(s) Facility (3 sources) Levamisole Drug Allergy 9 [facility] (1 source) Penicillin Drug Allergy 9 [facility] (2 sources) pregabalin Drug Allergy 9 [facility] (10 sources) Penicillins; Translations: [PENICILLINS] Drug allergy (disorder) 3 flu like sx [facility] (8 sources) Penicillins Drug Intolerance 8 Headache [facility] Work Phone: (15 sources) Pregabalin; Translations: [PREGABALIN] Allergy to substance 8 Dizziness, Headache, Other, Shortness of breath [facility] (20 sources) Promethazine; Translations: [PROMETHAZINE] Drug Allergy 8 Anxiety, Dizziness, Hallucinations , Itching, Other, Palpitations, Other (See Comments) [facility] (7 sources) Penicillins Propensity to adverse reactions to drug 8 Other (See Comments) [facility] (12 sources) pregabalin Drug Allergy 8 Other (See Comments) [facility] (5 sources) Penicillins Propensity to adverse reactions to drug 8 Other (See Comments) [facility] (4 sources) fentaNYL; Translations: [fentanyl] Drug Allergy 2 anxiety [facility] (1 source) Penicillins Drug allergy (disorder) 5 [facility] (1 source) pregabalin Drug Allergy 5 [facility] (1 source) Promethazine Drug Allergy 5 [facility] Medications Current Medications Medication Drug Class(es) Dates Sig (Normalized) Sig (Original) acetaminophen 325 mg oral capsule (20 sources) Start: 04-16-2025 take 1 capsule by mouth every six hours as needed Acetaminophen 325 mg capsule Active 325 MG PO Every 6 hours as needed April 16, 2025 12:00am take 2 tablets by mo ut every six hours as needed for pain acetaminophen (TYLENOL) 325 mg tablet Indications: pain Take 2 tablets (650 mg total) by mouth every 6 (six) hours as needed for pain Indications: pain. Active acetaminophen (T ylenol Extra Strength) 500 MG tablet every 6 (six) hours Active acetaminophen 500 mg / diphenhydrAMINE hydrochloride 25 mg oral tablet (20 sources) Histamine-1 Receptor Antagonist Start: 04-16-2025 take 1 tablet by mouth once daily at bedtime as needed Diphenhydramine-Acetaminophen (Acetaminophen Pm) 25-500 mg tablet Active 1 TAB PO Daily at bedtime as needed April 16, 2025 12:00am [id number] 200 actuat albuterol 0.09 mg/actuat metered dose inhaler (10 sources) beta2-Adrener gic Agonist Start: 04-16-2025 take 1 puff(s) by inhalation every six hours as needed Albuterol Sulfate (Ventolin Hfa) 90 mcg/actuation HFA aerosol inhaler Active 2 PUFF INHALATION Every 6 hours as needed April 16, 2025 12:00am Start: 02-19-2025 take 3 mL by inhalat ion four times daily as needed for wheezing [...] Active amitriptyline hydrochloride 10 mg oral tablet (20 sources) Tricyclic Antidepressant Start: 04-16-2025 take 2 tablets by mouth once daily at bedtime Amitriptyline 10 mg tablet Active 20 MG PO Daily at bedtime April 16, 2025 12:00am amitriptyline (E lavil) 10 MG tablet Active [...] / zinc oxide 40 mg oral tablet (8 sources) Vitamin C Multiple Vitamin (Multivitamin Adult) tablet as directed Orally Active aspirin 81 mg oral tablet (12 sources) Platelet Aggregation Inhibitor, Nonsteroidal Anti-inflammatory Drug Start: 04-16-2025 take 1 tablet by mouth once daily Aspirin 81 mg tablet Active 81 MG PO Daily April 16, 2025 12:00am aspirin 81 mg ch ewable tablet Chew 1 tablet (81 mg total) and swallow in the morning. prevention. Active atorvastatin 20 mg oral tablet (14 sources) HMG-CoA Reductase Inhibitor Start: 04-16-2025 take 1 tablet by mouth once daily at bedtime Atorvastatin 20 mg tablet Active 20 MG PO Daily at bedtime April 16, 2025 12:00am benzonatate 100 mg oral capsule (2 sources) Non-narcotic Antitussive Start: 04-16-2025 take 1 capsule by mouth twice daily as needed Benzonatate 100 mg capsule Active 100 MG PO Twice daily as needed April 16, 2025 12:00am cholecalciferol 0.05 mg oral capsule (12 sources) Vitamin D take 1 capsule by mouth once daily in the morning cholecalciferol, vitamin D3, 2,000 units capsule Indications: vitamin D deficiency Take 1 capsule (2,000 Units total) by mouth in the morning. Indications: low vitamin D levels. Active take 1 capsule by mo ut in the morning cholecalciferol, vitamin D3, 2,000 units capsule Take 1 capsule (2,000 Units total) by mouth in the morning. Active DULoxetine 60 mg delayed release oral capsule (20 sources) Serotonin and Norepinephrine Reuptake Inhibitor Start: 04-16-2025 take 1 capsule by mouth once daily Duloxetine (Cymbalta) 60 mg capsule,delayed release(DR/EC) Active 60 MG PO Daily April 16, 2025 12:00am 1 ml epoetin jose 23092 unt/ml injection (2 sources) Erythropoiesis-stim ulating Agent Start: 04-16-2025 inject 76727 [IU] by subcutaneous injection every other week Epoetin Jose (Procrit) 40,000 unit/mL solution Active 46821 UNIT SUBCUT .Q2wks April 16, 2025 12:00am erythromycin 0.005 mg/mg ophthalmic ointment (12 sources) Macrolide, Macrolide Antimicrobial Start: 06-24-2020 erythromycin (ILOTYCIN) ophthalmic ointment 06/24/2020 Active fluticasone / salmeterol (2 sources) Corticosteroid, beta2-Adrenergic Agonist Start: 02-19-2025 End: 02-20-2025 take 1 puff(s) by inhalation in the morning fluticasone propion-salmeteroL (ADVAIR DISKUS) 250-50 mcg/dose DISKUS Indications: Moderate persistent asthma without complication Inhale 1 puff in the morning and 1 puff before bedtime. 60 each 02/19/2025 02/20/2025 Discontinued Fluticasone Furoate-Vilantero l (5 sources) Corticosteroid, beta2-Adrenergic Agonist Start: 04-16-2025 Fluticasone Furoate-Vilanterol (Breo Ellipta) 200-25 mcg/dose blister with device Active 1 INH INHALATION Daily April 16, 2025 12:00am Start: 02-20-2025 take 1 puff(s) by in [...] 1 capsule by mouth three times daily Gabapentin 300 mg capsule Active 300 MG PO Three times daily April 16, 2025 12:00am take 1 capsule by mo uth every twelve hours gabapentin (Neurontin) 300 MG capsule 1 capsule every 12 (twelve) hours Active hydroCHLOROthiazide 12.5 mg oral capsule (4 sources) Thiazide Diuretic Start: 01-29-2025 End: 01-29-2026 take 1 capsule by mouth in the morning hydroCHLOROthiazide (MICROZIDE) 12.5 mg capsule Take 1 capsule (12.5 mg) by mouth in the morning. 01/29/2025 01/29/2026 Active 24 hr isosorbide mononitrate 30 mg extended release oral tablet (11 sources) Nitrate Vasodilator End: 12-11-2024 isosorbide mononitrate ER (Imdur) 30 MG 24 hr tablet 1 (one) time each day at the same time Active letrozole 2.5 mg oral tablet (8 sources) Aromatase Inhibitor Start: 04-16-2025 take 1 tablet by mouth once daily Letrozole 2.5 mg tablet Active 2.5 MG PO Daily April 16, 2025 12:00am lisinopril 10 mg oral tablet (20 sources) Angiotensin Converting Enzyme Inhibitor Start: 04-16-2025 take 1 tablet by mouth once daily Lisinopril 10 mg tablet Active 10 MG PO Daily April 16, 2025 12:00am meclizine hydrochloride 25 mg oral tablet (12 sources) Antiemetic take 1 tablet by mouth [...] succinate 25 mg extended release oral tablet (20 sources) beta-Adrenergic Magdalena Start: 04-16-2025 take 1 tablet by mouth once daily Metoprolol Succinate 25 mg tablet extended release 24 hr Active 25 MG PO Daily April 16, 2025 12:00am take 1 tablet by franky th every twenty-four hours in the morning metoprolol succinate XL (TOPROL-XL) 25 m g 24 hr tablet Indications: hypertension Take 1 tablet (25 mg total) by mouth in the morning. Indications: high blood pressure. Active montelukast 10 mg oral tablet (6 sources) Leukotriene Receptor Antagonist Start: 02-06-2025 take 1 tablet by mouth once daily at bedtime Montelukast (Singulair) 10 mg tablet Active 10 MG PO Daily at bedtime April 16, 2025 12:00am multivit-minerals/ ferrous fum (MULTI VITAMIN ORAL) (12 sources) multivit-mineral s/ ferrous fum (MULTI VITAMIN ORAL) Take by mouth. Active multivit-mineral s/ferrous fum (MULTI VITAMIN ORAL) Take by mouth. 0 Active omeprazole 20 mg delayed release oral capsule (20 sources) Proton Pump Inhibitor Start: 12-11-2024 End: 12-11-2024 take 1 capsule by mouth at bedtime omeprazole (PriLOSEC) 20 mg capsule TAKE 1 CAPSULE(20 MG) BY MOUTH IN THE MORNING AND AT BEDTIME 180 capsule 3 12/11/2024 Active ondansetron 4 mg disintegrating oral tablet (2 sources) Serotonin-3 Receptor Antagonist Start: 04-16-2025 take 1 tablet by mouth every eight hours as needed Ondansetron 4 mg tablet,disintegratin g Active 4 MG PO Every 8 hours as needed April 16, 2025 12:00am pantoprazole 40 mg delayed release oral tablet (2 sources) Proton Pump Inhibitor Start: 04-16-2025 take 1 tablet by mouth once daily Pantoprazole 40 mg tablet,delayed release (DR/EC) Active 40 MG PO Daily April 16, 2025 12:00am prochlorperazine 10 mg oral tablet (2 sources) Phenothiazine Start: 04-16-2025 take 1 tablet by mouth every eight hours as needed Prochlorperazine Maleate (Compazine) 10 mg tablet Active 10 MG PO Every 8 hours as needed April 16, 2025 12:00am sucralfate 1000 mg oral tablet (2 sources) Aluminum Complex Start: 04-16-2025 take 1 tablet by mouth twice daily Sucralfate (Carafate) 1 gram tablet Active 1 GM PO Twice daily April 16, 2025 12:00am Completed/Discontinued Medications Medication Drug Class(es) Dates Sig (Normalized) Sig (Original) ibuprofen 200 mg oral tablet (2 sources) Nonsteroidal Anti-inflammatory Drug Start: End: take 1 tablet by mouth once Ibuprofen 200 mg tablet Discontinued 200 MG PO Once April 16, 2025 12:00am April 16, 2025 3:01pm 1 ml methylPREDNISolone acetate 40 mg/ml injection [...] on Sun08/27/24 at 1221, For 1 dose palbociclib 100 mg oral capsule (6 sources) Kinase Inhibitor Start: 04-16-2025 End: 04-16-2025 Palbociclib (Ibrance) 100 mg capsule Discontinued 100 MG PO Daily April 16, 2025 12:00am April 16, 2025 3:02pm administer on days 1 through 21 of a 28-day treatment cycle take 1 capsule by [facility] once daily at mealtime palbociclib (Ibrance) 125 MG chemo capsu le Take 125 mg by mouth Daily with meals. Swallow whole. Active predniSONE 5 mg oral tablet (3 sources) [...] Problem Classification Problem Date Documented Date Episodic/Chronic Acute and unspecified renal failure (4 sources) Acute renal failure syndrome; Translations: [Acute kidney failure, unspecified] 04-16-2025 Episodic Asthma (5 sources) Uncomplicated moderate persistent asthma; Translations: [Moderate persistent asthma, uncomplicated] Onset: 02-19-2025 02-20-2025 Chronic Cancer of breast (2 sources) Malignant tumor of breast ; Translations: [Malignant neoplasm of unspecified site of unspecified female breast] 04-16-2025 Chronic Chronic kidney disease (4 sources) Chronic kidney disease stage 3; Translations: [Stage 3 chronic kidney disease] 04-16-2025 Chronic Chronic kidney disease (2 sources) Chronic kidney disease; Translations: [Chronic kidney disease, stage 3a] Onset: 03-03-2024 Coronary atherosclerosis and other heart disease (5 sources) 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; Translations: [Unstable angina] Onset: 11-13-2024 Chronic Deficiency and other anemia (1 source) Anemia of chronic disease; Translations: [Anemia in other chronic diseases classified elsewhere] 04-16-2025 Chronic Deficiency and other anemia (1 source) Anemia in other chronic diseases classified elsewhere; Translations: [Anemia of other chronic disease] 04-16-2025 Chronic Disorders of lipid metabolism (7 sources) Mixed hyperlipidemia; Translations: [Hyperlipidemia] Onset: 05-19-2024 Chronic Diverticulosis and diverticulitis (12 sources) Diverticulosis of large intestine; Translations: [Diverticulosis of large intestine without perforation or abscess without bleeding] Onset: 08-02-2020 08-02-2020 Chronic E Codes: Fall (1 source) Fall Onset: 07-19-2024 Esophageal disorders (10 sources) Gastroesophageal reflux disease without esophagitis; Translations: [Gastro-esophageal reflux disease without esophagitis] Onset: 12-11-2024 12-11-2024 Chronic Essential hypertension (3 sources) Essential (primary) hypertension; Translations: [Essential (primary) hypertension] Onset: 03-03-2024 Chronic Headache; including migraine (1 source) Headache; including migraine Onset: 03-30-2025 Hypertension with complications and secondary hypertension (4 sources) Chronic kidney disease due to hypertension; Translations: [Hypertensive chronic kidney disease with stage 1 through stage 4 chronic kidney disease, or unspecified chronic kidney disease] 04-16-2025 Chronic Malaise and fatigue (1 source) Fatigue Onset: 03-30-2025 Episodic Osteoarthritis (20 sources) Primary osteoarthritis, right ankle and foot; Translations: [Osteoarthritis of right knee joint] Onset: 01-14-2018 Chronic Other and unspecified benign neoplasm (12 sources) Neoplasm of meninges; Translations: [Benign neoplasm [...] Onset: 02-16-2022 Episodic Other lower respiratory disease (3 sources) Shortness of breath; Translations: [Shortness of breath] Onset: 10-24-2024 Episodic Other lower respiratory disease (1 source) Wheezing; Translations: [Wheezing] Onset: 10-24-2024 Episodic Other lower respiratory disease (2 sources) [...] breath] 12-11-2024 Episodic Other lower respiratory disease (5 sources) Dyspnea on exertion; Translations: [Other forms of dyspnea] Onset: 02-19-2025 02-19-2025 Episodic Other lower respiratory disease (3 sources) Other forms of dyspnea; Translations: [Other forms of dyspnea] Onset: 11-13-2024 Episodic Other lower respiratory disease (1 source) Cough Onset: 03-30-2025 Episodic Other nervous system disorders (1 source) [...] Classification Problem Date Documented Da te Episodic/Chronic Cancer of breast (10 sources) History of malignant neoplasm of breast; Translations: [Personal history of malignant neoplasm of breast] Onset: 12-11-2024 12-11-2024 Episodic E Codes: Fall (1 source) Unspecified fall, initial encounter; Translations: [Unspecified fall, initial encounter] Onset: 07-19-2024 Episodic Genitourinary symptoms and ill-defined conditions (1 source) Dysuria; Translations: [Dysuria] Onset: 06-10-2024 Episodic Mood disorders (12 sources) Mood disorders Onset: 07-23-2020 07-23-2020 Nonspecific [...] [Fibromyalgia] Onset: 03-03-2024 Episodic Other gastrointestinal disorders (12 sources) Dark stools; Translations: [Other fecal abnormalities] Onset: 07-13-2020 07-13-2020 Episodic Other lower respiratory disease (13 sources) Multiple nodules of lung; Translations: [Other nonspecific abnormal finding of lung field] Onset: 12-11-2024 12-11-2024 Episodic Other non-traumatic joint disorders (5 sources) Pain in left ankle and joints of left foot; Translations: [PAIN IN LEFT ANKLE] Onset: 11-02-2021 Episodic Other screening for suspected conditions (not mental disorders or infectious disease) (12 sources) History of adenomatous polyp of colon; Translations: [Encounter for screening for malignant neoplasm of colon] Onset: 07-13-2020 07-13-2020 Episodic Superficial injury; contusion (2 sources) Contusion of right hip, initial encounter; Translations: [Contusion of right front wall of thorax, initial encounter] Onset: 07-19-2024 Episodic Unclassified (12 sources) Onset: 08-02-2020 08-02-2020 Results Test Name Value Interpretation Reference Range Facility Estimated glomerular filtrat ion rate (GFR) non- Americanon 04-16-2025 GFR/1.73 sq M.predicted among non-blacks MDRD (S/P/Bld) [Vol rate/Area] Estimated glomerular filtration rate (GFR) non- Low >=60 mL/min/1.73m 2 [facility] - Chemistry and C hemistry - challengeon 04-16-2025 Albumin [Mass/Vol] 3.1 g/dL Low 3.4-5.0 [facility] Calcium [Mass/Vol] 9.4 mg/dL 8.5-10.1 [facility] Chloride [Moles/Vol] 99 mmol/L 98-107 [facility] CO2 [Moles/Vol] 26.2 mmol/L 21.0-32.0 [facility] Creatinine [Mass/Vol] 1.84 mg/dL High 0.55-1.02 [facility] GFR/1.73 sq M.predicted MDRD (S/P/Bld) [Vol rate/Area] 32 mL/min/{1.73_m2} Low >=60 mL/min/1.73m 2 [facility] Glucose [Mass/Vol] 97 mg/dL 74-106 [facility] Potassium [Moles/Vol] 4.8 mmol/L 3.5-5.1 [facility] Sodium [Moles/Vol] 133 mmol/L Low 136-145 [facility] Urea nitrogen [Mass/Vol] 21.0 mg/dL High 7.0-18.0 [facility] Urea nitrogen/Creatinine [Mass ratio] 11.4 mg/mg [facility] - Urinalysison Protein (U) [Mass/Vol] 9.4 mg/dL <=11.9 [facility] No Panel Informationon 04-16 Phosphorus Level 4.0 mg/dL 2.6-4.7 [facility] Urine Random Creatinine 46.09 mg/dL 20.00-300.00 [facility] Serum or plasma anion gap de terminationon 04-16-2025 Anion gap [Moles/Vol] Serum or plasma anion gap determination [facility] Urine Cultureon 04-16-2025 Bacteria identified Cx Nom (U) <9,000 colonies/ml mixed bacterial skin contaminants 2 Days PERFORMED BY: [place] [address] PATHOLOGIST INTAKE COORDINATOR LESLEY WHITMORE M.D. Normal [facility]ending [facility] Comment on above: Performed By: #### C UU #### [address] Urine protein/creatinine rat ioon 04-16-2025 Protein/Creatinine (U) [Ratio] Urine protein/creatinine ratio [facility] Urine Cultureon 04-14-2025 Bacteria identified Cx Nom (U) 50,000 colonies/ml mixed bacterial skin contaminants 2 Days PERFORMED BY: [place] [address] PATHOLOGIST INTAKE COORDINATOR LESLEY WHITMORE M.D. Normal [facility] Comment on above: Performed By: #### C UU #### [address] Urine cultureOrdered By: Adri Vazquez on 04-14-2025 Bacteria identified Cx Nom (U) Urine culture [facility] Urine Cultureon 03-28-2025 Bacteria identified Cx Nom (U) Urine Culture Results 30,000 colonies/ml Mixed Bacterial Skin Contaminants 2 Days PERFORMED BY: [place] [address] PATHOLOGIST INTAKE COORDINATOR LIZA RUIZ M.D. Normal [facility] Comment on above: Performed By: #### C UU #### [address] Urine cultureOrdered By: Zonia Quezada on 03-28-2025 Bacteria identified Cx Nom (U) Urine culture [facility] 36on 03-18-2025 36 Regarding lab result s from 03/03/2025: MD Megan Thomas MA I assume this blood test is after she started hydrochlorothiazide, her kidney function and potassium appear to be stable. Continue current management. Patient informed. [facility] 36on 02-24-2025 36 Patient returned my call. She hasn't started hydrochlorothiazide yet. She said the pharmacy had trouble obtaining it, and then she and her were out of town for a bit. She will start it today and have BMP next week. Order faxed to [facility]. [facility] 36 Regarding lab result s from 02/03/2025: MD Megan Thomas MA Creatinine is little higher after starting hydrochlorothiazide. Check with the patient if her shortness of breath and blood pressure are better. Spoke with . He said Margy was currently driving somewhere but he will have her return my call. [facility] Pulmonary function teston [facility] No Panel Informationon 02-06 LOLA Dickey 02/06/2025 [...] discussed. Consent was given by the patient. 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 Comment on above: Performed By: #### 5 43-9 #### [facility] ([id number]) [address], [address] [place] [address] Mycobacterium sp identified Org specific cx Nom (Unsp spec) SPECIMEN NOTES SPECIMEN 1 AFB SMEAR NO ACID FAST BACILLI (CONCENTRATED SMEAR) CULTURE RESULTS NO ACID FAST BACILLI ISOLATED IN 8 WEEKS Normal [facility] Comment on above: Performed By: #### 5 43-9 #### [facility] ([id number]) [address], [address] [place] [address] AND DIFFon 2024 BODY FLUID COMMENT Interpreta tion -------- Normal [facility] Comment on above: Result Comment: Refe rence values for this fluid type are undefined, as fluid accumulation is considered abnormal. Performed By: #### B FCT #### [facility] ([id number]) [address], [address] [place] [address] FLUID CLARITY TURBID Normal [facility] Comment on above: Performed By: #### B FCT #### [facility] ([id number]) [address], [address] [place] [address] FLUID COLOR COLORLESS Normal [facility] Comment on above: Performed By: #### B FCT #### [facility] ([id number]) [address], [address] [place] [address] FLUID EOSINOPHIL 12 % Normal [facility] Comment on above: Performed By: #### B FCT #### [facility] ([id number]) [address], [address] [place] [address] FLUID LYMPHOCYTE 1 % Normal [facility] Comment on above: Performed By: #### B FCT #### [facility] ([id number]) [address], [address] [place] [address] FLUID NEUTROPHILS 85 % Normal [facility] Comment on above: Performed By: #### B FCT #### [facility] ([id number]) [address], [address] [place] [address] 129 /uL Normal [facility] Comment on above: Performed By: #### B FCT #### [facility] ([id number]) [address], [address] [place] [address] FLUID SPECIMEN TYPE BRONCHIAL WASHING Normal [facility] Comment on above: Result Comment: RIGH T LUNG, MIDDLE LOBE Performed By: #### B FCT #### [facility] ([id number]) [address], [address] [place] [address] MACROPHAGES 2 % Normal [facility] Comment on above: Performed By: #### B FCT #### [facility] ([id number]) [address], [address] [place] [address] 1065 /uL Normal [facility] Comment on above: Performed By: #### B FCT #### [facility] ([id number]) [address], [address] [place] [address] BODY FLUID COMMENT Interpreta tion -------- Normal [facility] Comment on above: Result [...] abnormal. Performed By: #### B FCT #### [facility] ([id number]) [address], [address] [place] [address] FLUID CLARITY TURBID Normal [facility] Comment on above: Performed By: #### B FCT #### [facility] ([id number]) [address], [address] [place] [address] FLUID COLOR RED Normal [facility] Comment on above: Performed By: #### B FCT #### [facility] ([id number]) [address], [address] [place] [address] FLUID EOSINOPHIL 3 % Normal [facility] Comment on above: Performed By: #### B FCT #### [facility] ([id number]) [address], [address] [place] [address] FLUID LYMPHOCYTE 13 % Normal [facility] Comment on above: Performed By: #### B FCT #### [facility] ([id number]) [address], [address] [place] [address] FLUID NEUTROPHILS 81 % Normal [facility] Comment on above: Performed By: #### B FCT #### [facility] ([id number]) [address], [address] [place] [address] [place] [address] /uL Normal [facility] Comment on above: Performed By: #### B FCT #### [facility] ([id number]) [address], [address] [place] [address] FLUID SPECIMEN TYPE BRONCHOALVEOLAR LAVAGE Normal [facility] Comment on above: Result Comment: RIGH T LUNG, MIDDLE LOBE Performed By: #### B FCT #### [facility] ([id number]) [address], [address] [place] [address] MACROPHAGES 3 % Normal [facility] Comment on above: Performed By: #### B FCT #### [facility] ([id number]) [address], [address] [place] [address] 4 /uL Normal [facility] Comment on above: Performed By: #### B FCT #### [facility] ([id number]) [address] [place] [address], [address] [place] [address] Cytologyon 12-25-2024 Cytology Normal [facility] Comment on above: Result Comment: [facility] [address] [place] [address] Cytology Consultation ADDENDUM CO Patient Name:MARGY OAKES:1945 (Age: 79)Gender:FTaken:12/25/2024Reported:12/29/2024 16:11Physician(s):Isidra Simmons MD ([phone])Copy To: Rec. #:[id number]: #[id number] Final Cytologic Diagnosis 1. Right middle lobe, [...] which will be reported in an addendum. 12/26/2024 Interpretation performed at [facility], [address] [place] [address], [place] [address], License number: [id number].Electronically Signed Out By Min Acuna MD Additional [...] and Drug Administration (FDA) cleared (test/vendor): Confirm/ Rembert, Primary Antibody: SP1 Progesterone Receptor: FDA cleared (test/vendor): Confirm/ Rembert, Primary Antibody: 1E2 HER2: FDA approved (test/vendor): Pathway/ Rembert, Primary Antibody: 4B5 Detection System (ER, PgR and/or HER2): [employer]embert ultraView [place] DAB Detection Kit (indirect biotin-free detection) Scoring [...] >10% of tumor cells References 1. Aydee KH, Diana ME, Violet M, et al. Estrogen and Progesterone receptor Testing in Breast Cancer; [place] Society of Clinical Oncology/College of Palestinian Pathologists Guideline Update. Arch Pathol Lab Med. doi:10.5858/arpa.2387-0998-BX. 2. Erwin SAUCEDA, Diana CANTU, Aydee KH, et al. Human Epidermal Growth Factor Receptor 2 Testing in Breast Cancer; [employer] Society of Clinical Oncology/College of Palestinian Pathologist Clinical Practice Guideline Focused Update. Arch Pathol Lab Med. doi: 10.5858/arpa.3212-1330-VL. Electronically Signed Out Min Acuna MD Addendum (PHS) Date Reported: 01/08/2025 Results of testing for HER2, Breast Tumor, FISH, Tissue dated 01/07/2025 are received from [facility], [address] [place] [address] and are as follows: Result Summary: Negative [...] NO FUNGUS ISOLATED AFTER 4 WEEKS Normal [facility] Comment on above: Performed By: #### 5 80-1 #### [facility] ([id number]) [address], [address] [place] [address] Fungus identified Cx Nom (Unsp spec) SPECIMEN NOTES SPECIMEN 1 FUNGAL SMEAR NO FUNGAL ELEMENTS SEEN ON CONCENTRATED SMEAR CULTURE RESULTS NO FUNGUS ISOLATED AFTER 4 WEEKS Normal [facility] Comment on above: Performed By: #### 5 80-1 #### [facility] ([id number]) [address], [address] [place] [address] LOWER RESPIRATORY CULTUREon 12-25-2024 Bacteria identified Respiratory culture Nom (Sput) SPECIMEN NOTES SPECIMEN 3 GRAM STAIN >25 WHITE BLOOD CELLS/LPF 0 to 1 SQUAMOUS EPITHELIAL CELLS/LPF 0 CILIATED EPITHELIAL CELLS/LPF NO ORGANISMS SEEN CULTURE RESULTS NO GROWTH 2 DAYS Normal [facility] Comment on above: Performed By: #### 6 24-7 #### [facility] ([id number]) [address] [place] [address] [address] [place] [address] Bacteria identified Respiratory culture Nom (Sput) SPECIMEN NOTES SPECIMEN 1 GRAM STAIN 0 to 1 WHITE BLOOD CELLS/LPF 0 SQUAMOUS EPITHELIAL CELLS/LPF 0 CILIATED EPITHELIAL CELLS/LPF NO ORGANISMS SEEN CULTURE RESULTS NO GROWTH 2 DAYS Normal [facility] Comment on above: Performed By: #### 6 24-7 #### [facility] ([id number]) [address] [place] [address], [address] [place] [address] Surgical Pathologyon 025 Surgical Pathology Normal [facility] Comment on above: Result Comment: [facility] [address] [place] [address] Surgical Pathology Consultation ADDENDUM CO Patient Name:MARGY OAKES:1945 (Age: 79)Gender:FTaken:12/25/2024Reported:12/30/2024Physician(s):Isidra Simmons MD ([phone])Copy To: Rec. #:[id number]: #[id number] Final Pathologic Diagnosis Right lung, middle lobe nodule, needle biopsy: CARCINOMA, consistent with METASTATIC MAMMARY CARCINOMA. Comment The tumor is glandular and papillary. Immunostains were performed, with adequate controls, and reveal strong positivity for GATA3 and CK7 with negative TTF1, Napsin-A and p40. The morphology and immunophenotype are those of a metastatic mammary carcinoma. ER, CO and Her2 will be performed and reported as an addendum. Report Electronically Signed Out gr12/30/2024Gene MD Aldair Addendum (PHS) Date Reported: 12/31/2024 [...] and Drug Administration (FDA) cleared (test/vendor): Confirm/ Rembert, Primary Antibody: SP1 Progesterone Receptor: FDA cleared (test/vendor): Confirm/ Rembert, Primary Antibody: 1E2 HER2: FDA approved (test/vendor): Pathway/ Rembert, Primary Antibody: 4B5 Detection System (ER, PgR and/or HER2): [employer]embert ultraView [place] DAB Detection Kit (indirect biotin-free detection) Scoring [...] and Progesterone receptor Testing in Breast Cancer; [place] Society of Clinical Oncology/College of Palestinian Pathologists Guideline Update. Arch Pathol Lab Med. doi:10.5858/arpa.5461-1631-CF. 2. Erwin SAUCEDA, Diana CANTU, Aydee CARDENAS, et al. Human Epidermal Growth Factor Receptor 2 Testing in Breast Cancer; [place] Society of Clinical Oncology/College of Palestinian Pathologist Clinical Practice Guideline Focused Update. Arch Pathol Lab Med. doi: 10.5858/arpa.[id number]-JT. The tissue block is being sent for Her2 analysis by FISH. Electronically Signed Out Agustin Quinteros MD Addendum (PHS) Date Reported: 01/12/2025 Results of testing for HER2, Breast Tumor, FISH, Tissue dated 01/06/2025 are received from [facility], [address] [place] [address] and are as follows: Result Summary: Negative [...] 1. Erwin et al., J Clin Oncol, 36(20):7956-7363, 2018 Result nuc umm([id number],QEW0k2-5) HER2/D17Z1 ratio: 1.22 Average HER2 signals per cell: 3.6 Average D17Z1 signals per cell: 2.9 Reason for Referral: HER2 equivocal metastatic mammary carcinoma Source: Right lung Method: FISH using probes for HER2 (17q12) and a chromosome 17 centromere (D17Z1) control probe (Authentic Responseion, [facility] Two technologists score signals in (more content not included)... APTTon 12-12-2024 aPTT Coag (PPP) [Time] 34 s [facility] BASIC METABOLIC PANLon 12-12 Anion gap [Moles/Vol] 10 mmol/L Normal 5-15 [facility] Comment on above: Performed By: #### P INR, 64932-5 #### [facility] ([id number]) [address] [place] [address] #### CBCA, BMP #### [facility] ([id number]) [address] [facility], [address] [place] [address] Calcium [Mass/Vol] 9.6 mg/dL Normal 8.5-10.5 [facility] Comment on above: Performed By: #### P INR, 92287-9 #### [facility] ([id number]) [address] [place] [address] #### CBCA, BMP #### [facility] ([id number]) [address] [facility], [address] [place] [address] Chloride [Moles/Vol] 102 mmol/L Normal 98-109 [facility] Comment on above: Performed By: #### P INR, 65716-6 #### [facility] ([id number]) [address] [place], [place] [address] #### CBCA, BMP #### [facility] ([id number]) [address] [facility], [address] [place] [address] CO2 [Moles/Vol] 28 mmol/L Normal 22-32 [facility] Comment on above: Performed By: #### P INR, 11221-0 #### [facility] ([id number]) [address] [place], [place] [address] #### CBCA, BMP #### [facility] ([id number]) [address] [facility], [address] [place] [address] Creatinine [Mass/Vol] 1.18 mg/dL High 0.40-1.00 [facility] Comment on above: Result Comment: METH OD TRACEABLE TO IDMS STANDARD Performed By: #### P INR, 02786-0 #### [facility] ([id number]) [address] [place] [address] #### LEXIE BMP #### [facility] ([id number]) [address] [facility], [address] [place] [address] GFR/1.73 sq M.predicted among non-blacks MDRD (S/P/Bld) [Vol rate/Area] 47 mL/min/{1.73_m2} Low >59 [facility] Comment on above: Result Comment: Reported eGFR is based on the CKD-EPI 2020 equation that does not use a race coefficient. Performed By: #### P INR, 04559-8 #### [facility] ([id number]) [address] [place], [place] [address] #### LEXIE BMP #### [facility] ([id number]) [address] [place] [address], [address] [place] [address] Glucose [Mass/Vol] 80 mg/dL Normal 65-99 [facility] Comment on above: Performed By: #### P INR, 47873-1 #### [facility] ([id number]) [address] [place] [address] #### CBCMike BMP #### [facility] ([id number]) [address] [place] [address], [address] [place] [address] Potassium [Moles/Vol] 4.6 mmol/L Normal 3.5-5.0 [facility] Comment on above: Performed By: #### P INR, 54441-0 #### [facility] ([id number]) [address] [place], [place] [address] #### CBCA, BMP #### [facility] ([id number]) [address], [address] [place] [address] Sodium [Moles/Vol] 140 mmol/L Normal 134-146 [facility] Comment on above: Performed By: #### P INR, 08051-8 #### [facility] ([id number]) [address] [place] [address] #### CBCA, BMP #### [facility] ([id number]) [address] [facility], [address] [place] [address] Urea nitrogen [Mass/Vol] 16 mg/dL Normal 5-27 [facility] Comment on above: Performed By: #### P INR, 40359-9 #### [facility] ([id number]) [address] [place] [address] #### CBCA, BMP #### [facility] ([id number]) [address], [address] [place] [address] Basic Metabolic Panelon 01-3 Anion gap [Moles/Vol] 10 mmol/L 5 - 15 mmol/L [facility] Calcium [Mass/Vol] 9.6 mg/dL 8.5 - 10. 5 mg/dL [facility] Chloride [Moles/Vol] 102 mmol/L 98 - 109 mmol/L [facility] CO2 [Moles/Vol] 28 mmol/L 22 - 32 mmol/L [facility] Creatinine [Mass/Vol] 1.18 mg/dL High 0.40 - 1.00 mg/dL [facility] Comment on above: METHOD TRACEABLE TO IDMS STANDARD eGFR (CKD-EPI)non-race dependent 47 Low - PINF [facility] Comment on above: Reported eGFR is based on the CKD-EPI 2020 equation that does not use a race coefficient. Glucose [Mass/Vol] 80 mg/dL 65 - 99 mg/dL [facility] Interpretation and review of laboratory results Abnormal [facility] Potassium [Moles/Vol] 4.6 mmol/L 3.5 - 5.0 mmol/L [facility] Sodium [Moles/Vol] 140 mmol/L 134 - 146 mmol/L [facility] Urea nitrogen [Mass/Vol] 16 mg/dL 5 - 27 mg/dL [facility] CBC AND AUTO DIFFon 12-12-19 25 ABSOLUTE BASOPHIL 0.1 X10E9/L Normal 0.0-0.2 [facility] Comment on above: Performed By: #### P INR, 32243-3 #### [facility] ([id number]) [address] [place] [address] #### CBCA, BMP #### [facility] ([id number]) [address] [place] [address], [address] [place] [address] ABSOLUTE NEUTROPHIL 2.6 X10E9/L Normal 1.5-6.6 [facility] Comment on above: Performed By: #### P INR, 44164-5 #### [facility] ([id number]) [address] [place] [address] #### CBCA, BMP #### [facility] ([id number]) [facility] [facility], [address] [place] [address] Basophils/100 WBC (Bld) 1.1 % Normal [facility] Comment on above: Performed By: #### P INR, 49466-3 #### [facility] ([id number]) [address] [place], [place] [address] #### CBCA, BMP #### [facility] ([id number]) [address] [place] [address], [address] [place] [address] Eosinophils (Bld) [#/Vol] 0.3 10*3/uL Normal 0.0-0.4 [facility] Comment on above: Performed By: #### P INR, 75047-2 #### [facility] ([id number]) [address] [place] [address] #### CBCA, BMP #### [facility] ([id number]) [address] [place] [address] Eosinophils/100 WBC (Bld) 6.0 % Normal [facility] Comment on above: Performed By: #### P INR, 03052-6 #### [facility] ([id number]) [address] [place] [address] #### CBCA, BMP #### [facility] ([id number]) [address], [address] [place] [address] Erythrocyte distribution width (RBC) [Ratio] 13.5 % Normal 11.5-15.0 [facility] Comment on above: Performed By: #### P INR, 55895-4 #### [facility] ([id number]) [address] [place], [place] [address] #### CBCA, BMP #### [facility] ([id number]) [address], [address] [place] [address] Hematocrit (Bld) [Volume fraction] 33.9 % Low 35-47 [facility] Comment on above: Performed By: #### P INR, 27421-8 #### [facility] ([id number]) [address] [place] [address] #### CBCA, BMP #### [facility] ([id number]) [address] [place] [address] Hemoglobin (Bld) [Mass/Vol] 11.6 g/dL Low 11.7-15.5 [facility] Comment on above: Performed By: #### P INR, 23285-2 #### [facility] ([id number]) [address] [place] [address] #### CBCA, BMP #### [facility] ([id number]) [address] [place] [address] Lymphocytes (Bld) [#/Vol] 1.7 10*3/uL Normal 1.0-3.5 [facility] Comment on above: Performed By: #### P INR, 54717-3 #### [facility] ([id number]) [address] [place] [address] #### CBCA, BMP #### [facility] ([id number]) [address], [address] [place] [address] Lymphocytes/100 WBC (Bld) 33.4 % Normal [facility] Comment on above: Performed By: #### P INR, 11952-4 #### [facility] ([id number]) [address] [place] [address] #### CBCA, BMP #### [facility] ([id number]) [address], [address] [place] [address] MCH (RBC) [Entitic mass] 32.6 pg Normal 27-34 [facility] Comment on above: Performed By: #### P INR, 16325-1 #### [facility] ([id number]) [address] [place] [address] #### CBCA, BMP #### [facility] ([id number]) [address], [address] [place] [address] MCHC (RBC) [Mass/Vol] 34.3 g/dL Normal 32-36 [facility] Comment on above: Performed By: #### P INR, 81758-3 #### [facility] ([id number]) [address] [place] [address] #### CBCA, BMP #### [facility] ([id number]) [address], [address] [place] [address] MCV (RBC) [Entitic vol] 95 fL Normal 80-100 [facility] Comment on above: Performed By: #### P INR, 37902-5 #### [facility] ([id number]) [address] [place], [place] [address] #### CBCA, BMP #### [facility] ([id number]) [address], [address] [place] [address] Monocytes (Bld) [#/Vol] 0.4 10*3/uL Normal 0-0.9 [facility] Comment on above: Performed By: #### P INR, 64721-4 #### [facility] ([id number]) [address] [place], [place] [address] #### CBCA, BMP #### [facility] ([id number]) [address] [facility], [address] [place] [address] Monocytes/100 WBC (Bld) 8.3 % Normal [facility] Comment on above: Performed By: #### P INR, 56778-6 #### [facility] ([id number]) [address] [place], [place] [address] #### CBCA, BMP #### [facility] ([id number]) [address] [facility], [address] [place] [address] Neutrophils/100 WBC (Bld) 51.2 % Normal [facility] Comment on above: Performed By: #### P INR, 48375-7 #### [facility] ([id number]) [address] [place], [place] [address] #### CBCA, BMP #### [facility] ([id number]) [address], [address] [place] [address] Platelet mean volume (Bld) [Entitic vol] 7.6 fL Normal 7-12 [facility] Comment on above: Performed By: #### P INR, 58315-9 #### [facility] ([id number]) [address] [place], [place] [address] #### CBCA, BMP #### [facility] ([id number]) [address] [facility], [address] [place] [address] Platelets (Bld) [#/Vol] 244 10*3/uL Normal 150-450 [facility] Comment on above: Performed By: #### P INR, 50525-8 #### [facility] ([id number]) [address] [place], [place] [address] #### CBCA, BMP #### [facility] ([id number]) [address] [facility], [address] [place] [address] RBC COUNT 3.56 X10E12/L Low 3.80-5.20 [facility] Comment on above: Performed By: #### P INR, 20558-7 #### [facility] ([id number]) [address] [place], [place] [address] #### CBCA, BMP #### [facility] ([id number]) [address] [facility], [address] [place] [address] WBC (Bld) [#/Vol] 5.0 10*3/uL Normal 4.0-11.0 [facility] Comment on above: Performed By: #### P INR, 79784-0 #### [facility] ([id number]) [address] [place], [place] [address] #### CBCA, BMP #### [facility] ([id number]) [address] [facility], [address] [place] [address] CBC auto differentialon 11-14 Basophils (Bld) [#/Vol] 0.1 10*3/uL [facility] Basophils/100 WBC (Bld) 1.1 % [facility] Eosinophils (Bld) [#/Vol] 0.3 10*3/uL [facility] Eosinophils/100 WBC (Bld) 6 % [facility] Erythrocyte distribution width (RBC) [Ratio] 13.5 % 11.5 - 15.0 % [facility] Hematocrit (Bld) [Volume fraction] 33.9 % Low 35 - 47 % [facility] Hemoglobin (Bld) [Mass/Vol] 11.6 g/dL Low 11.7 - 15.5 g/dL [facility] Interpretation and review of laboratory results Abnormal [facility] Lymphocytes (Bld) [#/Vol] 1.7 10*3/uL [facility] Lymphocytes/100 WBC (Bld) 33.4 % [facility] MCH (RBC) [Entitic mass] 32.6 pg 27 - 34 pg [facility] MCHC (RBC) [Mass/Vol] 34.3 g/dL 32 - 36 g/dL [facility] MCV (RBC) [Entitic vol] 95 fL 80 - 100 fL [facility] Monocytes (Bld) [#/Vol] 0.4 10*3/uL [facility] Monocytes/100 WBC (Bld) 8.3 % [facility] Neutrophils (Bld) [#/Vol] 2.6 10*3/uL [facility] Neutrophils/100 WBC (Bld) 51.2 % [facility] Platelet mean volume (Bld) [Entitic vol] 7.6 fL 7 - 12 fL [facility] Platelets (Bld) [#/Vol] 244 10*3/uL [facility] RBC (Bld) [#/Vol] 3.56 10*6/uL Low [facility] WBC corrected for nucl RBC Auto (Bld) [#/Vol] [address] [facility] [address] ION CHEST WO CONTon 12-12 CT ION CHEST WO CONT CT ION CHEST WO CONT CT ION CHEST WO CONT CLINICAL INDICATION: Pulmonary nodules/lesions, multiple COMPARISON: CT chest 11/14/2024 TECHNIQUE: Noncontrast CT chest was performed. Coronal and sagittal reformatted images were generated and reviewed. Automated exposure control was utilized. Computer aided detection for pulmonary nodules was performed utilizing [employer] software. FINDINGS: Lower Neck & Thyroid: Unremarkable. [...] 9:50 AM Normal [facility] No Panel Informationon 12-12 [facility] PROTIME AND INRon 12-12-2024 INR Coag (PPP) [Relative time] 1.0 {INR} Normal 0.8-1.1 [facility] Comment on above: Performed By: #### P INR, 16474-2 #### [facility] ([id number]) [address] [place] [address] #### LEXIE BMP #### [facility] ([id number]) [address] [place] [address], [address] [place] [address] PT Coag (PPP) [Time] 11.3 s Normal 9.8-13.2 [facility] Comment on above: Performed By: #### P INR, 81825-0 #### [facility] ([id number]) [address] [place] [address] #### LEXIE, BMP #### [facility] ([id number]) [address] [place] [address], [address] [place] [address] Protime & INRon 12-12-2024 INR Coag (PPP) [Relative time] 1 {INR} [facility] PT Coag (PPP) [Time] 11.3 s [facility] aPTT Coag (PPP) [Time]on aPTT Coag (Bld) [Time] 34 s Normal 26-37 [facility] Comment on above: Performed By: #### P INR, 76779-3 #### [facility] ([id number]) [address] [place] [address] #### LEXIE, BMP #### [facility] ([id number]) [address] [place] [address], [address] [place] [address] HPon 12-09-2024 HP ---- -------- Attestation signed by Kimmy Rosado MD at 12/09/2024 9:23 AM I personally saw and examined the patient on the same date of service as resident/fellow Dr howard. I discussed the findings and therapeutic plan with the resident/fellow Dr Howard. I agree with the documentation, except for any edits/updates below. Teaching Physician's Revisions: None Kimmy Rosado MD, [facility] -------- H&P reviewed. The patient was examined and there are no changes to the H&P. [facility] NURSNOTEon 12-09-2024 NURSNOTE RN educated pt on [...] off of unit with all of belongings. [facility] ALT No additional P-5'-P [Ca talytic activity/Vol]on 11-13-2024 ALT [Catalytic activity/Vol] 15 U/L Normal 0-31 [facility] Comment on above: Performed By: #### C ALDO URENA, 01978-1 #### [facility] ([id number]) [address], [address] [place] [address] Kaley 11-13-2024 AST [Catalytic activity/Vol] 18 U/L Normal 0-41 [facility] Comment on above: Performed By: #### C ALDO URENA, 22415-5 #### [facility] ([id number]) [address], [address] [place] [address] BASIC METABOLIC PANLon 11-13 Anion gap [Moles/Vol] 7 mmol/L Normal 5-15 [facility] Comment on above: Performed By: #### C ALDO URENA, 78907-1 #### [facility] ([id number]) [address], [address] [place] [address] Calcium [Mass/Vol] 9.7 mg/dL Normal 8.5-10.5 [facility] Comment on above: Performed By: #### C ALDO URENA, 09174-5 #### [facility] ([id number]) [address], [address] [place] [address] Chloride [Moles/Vol] 102 mmol/L Normal 98-109 [facility] Comment on above: Performed By: #### C ALDO URENA, 77149-5 #### [facility] ([id number]) [address], [address] [place] [address] CO2 [Moles/Vol] 32 mmol/L Normal 22-32 [facility] Comment on above: Performed By: #### C ALDO URENA, 86547-6 #### [facility] ([id number]) [address], [address] [place] [address] Creatinine [Mass/Vol] 1.31 mg/dL High 0.40-1.00 [facility] Comment on above: Result Comment: METH OD TRACEABLE TO IDMS STANDARD Performed By: #### C ALDO URENA, 54210-9 #### [facility] ([id number]) [address], [address] [place] [address] GFR/1.73 sq M.predicted among non-blacks MDRD (S/P/Bld) [Vol rate/Area] 41 mL/min/{1.73_m2} Low >59 [facility] Comment on above: Result Comment: Reported eGFR is based on the CKD-EPI 2020 equation that does not use a race coefficient. Performed By: #### C ALDO URENA, 34128-4 #### [facility] ([id number]) [address], [address] [place] [address] Glucose [Mass/Vol] 98 mg/dL Normal 65-99 [facility] Comment on above: Performed By: #### Marciano URENA CMP, 37143-8 #### [facility] ([id number]) [address], [address] [place] [address] Potassium [Moles/Vol] 5.3 mmol/L High 3.5-5.0 [facility] Comment on above: Performed By: #### Marciano URENA, CMP, 70565-3 #### [facility] ([id number]) [address], [address] [place] [address] Sodium [Moles/Vol] 141 mmol/L Normal 134-146 [facility] Comment on above: Performed By: #### Marciano URENA, CMP, 47729-1 #### [facility] ([id number]) [address] [place] [address] Urea nitrogen [Mass/Vol] 19 mg/dL Normal 5-27 [facility] Comment on above: Performed By: #### Marciano URENA, CMP, 89746-2 #### [facility] ([id number]) [address] [address] [place] [address] CBC AND AUTO DIFFon 11-13-19 25 ABSOLUTE BASOPHIL 0.0 X10E9/L Normal 0.0-0.2 [facility] Comment on above: Performed By: #### C BCA, CMP, 34989-8 #### [facility] ([id number]) [address], [address] [place] [address] ABSOLUTE NEUTROPHIL 2.1 X10E9/L Normal 1.5-6.6 [facility] Comment on above: Performed By: #### Marciano BCA, CMP, 24362-8 #### [facility] ([id number]) [address], [address] [place] [address] Basophils/100 WBC (Bld) 0.5 % Normal [facility] Comment on above: Performed By: #### Marciano URENA CMP, 85390-9 #### [facility] ([id number]) [address], [facility] [address] [place] [address] Eosinophils (Bld) [#/Vol] 0.3 10*3/uL Normal 0.0-0.4 [facility] Comment on above: Performed By: #### Marciano URENA CMP, 31134-0 #### [facility] ([id number]) [address], [facility] [address] [place] [address] Eosinophils/100 WBC (Bld) 5.6 % Normal [facility] Comment on above: Performed By: #### Marciano URENA CMP, 18465-7 #### [facility] ([id number]) [address], [facility] [address] [place] [address] Erythrocyte distribution width (RBC) [Ratio] 13.5 % Normal 11.5-15.0 [facility] Comment on above: Performed By: #### Marciano URENA CMP, 23331-1 #### [facility] ([id number]) [address] [address] [place] [address] Hematocrit (Bld) [Volume fraction] 34.0 % Low 35-47 [facility] Comment on above: Performed By: #### Marciano URENA CMP, 59141-1 #### [facility] ([id number]) [address] [address] [place] [address] Hemoglobin (Bld) [Mass/Vol] 11.4 g/dL Low 11.7-15.5 [facility] Comment on above: Performed By: #### Marciano URENA CMP, 93183-6 #### [facility] ([id number]) [address], [facility] [address] [place] [address] Lymphocytes (Bld) [#/Vol] 1.8 10*3/uL Normal 1.0-3.5 [facility] Comment on above: Performed By: #### Marciano URENA CMP, 01766-5 #### [facility] ([id number]) [address] [place] [address] Lymphocytes/100 WBC (Bld) 38.8 % Normal [facility] Comment on above: Performed By: #### Marciano URENA CMP, 86847-4 #### [facility] ([id number]) [address] [place] [address] MCH (RBC) [Entitic mass] 31.9 pg Normal 27-34 [facility] Comment on above: Performed By: #### Marciano URENA CMP, 62556-3 #### [facility] ([id number]) [address], [address] [place] [address] MCHC (RBC) [Mass/Vol] 33.5 g/dL Normal 32-36 [facility] Comment on above: Performed By: #### Marciano URENA CMP, 54442-8 #### [facility] ([id number]) [address] [place] [address] MCV (RBC) [Entitic vol] 95 fL Normal 80-100 [facility] Comment on above: Performed By: #### Marciano URENA CMP, 68018-2 #### [facility] ([id number]) [address] [place] [address] Monocytes (Bld) [#/Vol] 0.4 10*3/uL Normal 0-0.9 [facility] Comment on above: Performed By: #### Marciano URENA CMP, 20779-6 #### [facility] ([id number]) [address] [place] [address] Monocytes/100 WBC (Bld) 9.4 % Normal [facility] Comment on above: Performed By: #### Marciano URENA CMP, 84868-1 #### [facility] ([id number]) [address], [address] [place] [address] Neutrophils/100 WBC (Bld) 45.7 % Normal [facility] Comment on above: Performed By: #### Marciano URENA CMP, 35925-2 #### [facility] ([id number]) [address], [address] [place] [address] Platelet mean volume (Bld) [Entitic vol] 7.8 fL Normal 7-12 [facility] Comment on above: Performed By: #### Marciano URENA CMP, 41282-1 #### [facility] ([id number]) [address], [address] [place] [address] Platelets (Bld) [#/Vol] 261 10*3/uL Normal 150-450 [facility] Comment on above: Performed By: #### Marciano URENA CMP, 68883-8 #### [facility] ([id number]) [address], [address] [place] [address] RBC COUNT 3.57 X10E12/L Low 3.80-5.20 [facility] Comment on above: Performed By: #### Marciano URENA CMP, 68067-1 #### [facility] ([id number]) [address], [address] [place] [address] WBC (Bld) [#/Vol] 4.5 10*3/uL Normal 4.0-11.0 [facility] Comment on above: Performed By: #### Marciano URENA, CMP, 32468-1 #### [facility] ([id number]) [address], [address] [place] [address] Lipid 1996 panelon 5 Cholesterol [Mass/Vol] 215 mg/dL High 150-200 [facility] Comment on above: Performed By: #### Marciano URENA CMP, 73463-6 #### [facility] ([id number]) [address], [address] [place] [address] Cholesterol in HDL [Mass/Vol] 57 mg/dL Normal >39 [facility] Comment on above: Result Comment: HDL <40 mg/dL - High Risk HDL > or = 40mg/dL- Desirable HDL >60 mg/dL - Negative Risk Performed By: #### C ALDO URENA, 27830-6 #### [facility] ([id number]) [address], [address] [place] [address] Cholesterol in LDL [Mass/Vol] 99 mg/dL Normal <130 [facility] Comment on above: Result Comment: LDL <100 mg/dL - Desirable LDL >160 mg/dL - High Risk Performed By: #### Marciano URENA CMP, 25585-9 #### [facility] ([id number]) [address], [address] [place] [address] Cholesterol in VLDL [Mass/Vol] 59 mg/dL High 0-30 [facility] Comment on above: Performed By: #### Marciano URENA CMP, 28487-7 #### [facility] ([id number]) [address], [address] [place] [address] CHOLESTEROL:HDL 3.8 Normal 1.0-5.0 [facility] Comment on above: Performed By: #### Marciano URENA CMP, 91934-8 #### [facility] ([id number]) [address] [place] [address] Triglyceride [Mass/Vol] 297 mg/dL High 27-150 [facility] Comment on above: Performed By: #### C BCA, CMP, 79146-8 #### [facility] ([id number]) [address] [facility], [address] [place] [address] [facility] 11-10-2024 [facility] Note Reason for cardiology consult: [...] 11/10/2024 s (more content not included)... Normal [facility] Office Visiton 11-10-2024 Follow-up visit [id number] Sugar Oakes 1945 F Date Provider Department Center 11/10/2024 [id number]-SHMWKTKIMMY ROSADO SILVIA [facility] Family History Problem Relation Age of Onset Cancer Mother Cancer Father Cancer Brother Family Status - Relation Status Age at Mother Father Brother Level of Service:84511 CO OFFICE/OUTPATIENT [facility] 60 MINUTES Reason for Visit and Comments: Hypertension [933028] Chest Pain [440180] - Sometimes gets chest pain at rest. Hyperlipidemia [182] Coronary Artery Disease [187] - Does not take daily aspirin. She does ride her stationary bike about 10 miles every day. Shortness of Breath [] - Gets very SOB with exertion and has to stop and take a rest at times. Palpitations [] - A little bit Dizziness [] Normal [facility] No Panel Informationon 08-27 Lavinia Herring NP 08/28/2024 11:52 AM L Inj/Asp: R knee on 08/27/2024 12:21 PM Indications: pain Details: 21 G needle, anterolateral approach Medications: 40 mg methylPREDNISolone acetate 40 MG/ML Outcome: tolerated well, no immediate complications Site cleaned with isopropyl alcohol Procedure, treatment alternatives, risks and benefits explained, specific risks discussed. Consent was given by the patient. [facility] As Seen on TV [facility] [place] XR Knee - right 1 or 2 Views on 08-27-2024 Imaging Result: 08/27/2024: Standing AP and LAT of the right knee demonstrates lateral joint space narrowing with valgus alignment. There is sclerosis noted to medial and lateral tibial plateau. Impression: Left knee osteoarthritis with valgus alignment. Lavinia Herring [employer] [facility] Radiology Study observation (narrative) [facility] As Seen on TV XR Knee - right 1 or 2 Views Ordered By: Jr. Jeffries on 08-27-2024 [facility] As Seen on TV Work Phone: CT BRAIN WO CONTon CT [...] Alberto MD on 07/19/2024 10:32 PM Normal [facility] CT CERVICAL SPINE WO CONTon 07-19-2024 CT [...] Stephens MD on 07/19/2024 10:44 PM Normal [facility] XR HIP RT 2-3 VIEWS W OR [...] Stephens MD on 07/19/2024 10:42 PM Normal [facility] XR RIBS RT 3 VWS W PA [...] Horace Rojas DO on 07/19/2024 11:57 PM I, Dominique Alberto MD have personally reviewed the image(s) and agree with and/or edited the report Finalized by Dominique Alberto MD on 07/19/2024 11:59 PM Normal [facility] URINALYSISon 06-10-2024 Bilirubin Ql (U) Negative Normal NEG [facility] Comment on above: Performed By: #### U A #### [facility] ([id number]) [address], [address] [place] [address] BLOOD/HGB Negative Normal NEG [facility] Comment on above: Performed By: #### U A #### [facility] ([id number]) [address], [address] [place] [address] Color (U) YELLOW Normal YELLOW [facility] Comment on above: Performed By: #### U A #### [facility] ([id number]) [address], [address] [place] [address] Glucose Ql (U) Negative Normal NEG [facility] Comment on above: Performed By: #### U A #### [facility] ([id number]) [address], [address] [place] [address] Ketones Ql (U) Negative Normal NEG [facility] Comment on above: Performed By: #### U A #### [facility] ([id number]) [address] [facility], [address] [place] [address] Leukocyte esterase Test strip Ql (U) MODERATE Abnormal NEG [facility] Comment on above: Performed By: #### U A #### [facility] ([id number]) [address] [place] [address] MUCOUS PRESENT Abnormal NONE [facility] Comment on above: Performed By: #### U A #### [facility] ([id number]) [address], [address] [place] [address] Nitrite Ql (U) Negative Normal NEG [facility] Comment on above: Performed By: #### U A #### [facility] ([id number]) [address], [address] [place] [address] pH (U) 6.0 [pH] Normal 5.0-8.5 [facility] Comment on above: Performed By: #### U A #### [facility] ([id number]) [address] [facility] [address] [place] [address] Protein Ql (U) Negative Normal NEG [facility] Comment on above: Performed By: #### U A #### [facility] ([id number]) [address] [facility] [address] [place] [address] R.B.CELLS 1 /hpf Normal 0-5 [facility] Comment on above: Performed By: #### U A #### [facility] ([id number]) [address] [address] [place] [address] Specific gravity (U) [Rel density] 1.009 Normal 1.003-1.035 [facility] Comment on above: Performed By: #### U A #### [facility] ([id number]) [address] [place] [address] SQUAMOUS EPITHELIUM 1 /hpf Normal 0-5 [facility] Comment on above: Performed By: #### U A #### [facility] ([id number]) [address] [place] [address] TURBIDITY CLEAR Normal CLEAR [facility] Comment on above: Performed By: #### U A #### [facility] ([id number]) [address] [place] [address] Urobilinogen (U) [Mass/Vol] mg/dL Normal <1.1 [facility] Comment on above: Performed By: #### U A #### [facility] ([id number]) [address], [facility] [address] [place] [address] W.B.CELLS 3 /hpf Normal 0-5 [facility] Comment on above: Performed By: #### U A #### [facility] ([id number]) [address] [address] URINE CULTUREon 06-10-2024 Bacteria identified Cx Nom (U) CULTURE RESULTS <10,000 ORGANISMS/ML NORMAL URO GENITAL CLAUDY Normal [facility] Comment on above: Performed By: #### 6 30-4 #### [facility] ([id number]) [address] [address] Lipid 1996 panelon Cholesterol [Mass/Vol] 231 mg/dL High 150-200 [facility] Comment on above: Performed By: #### 2 4331-1 #### [facility] ([id number]) [address] [address] Cholesterol in HDL [Mass/Vol] 78 mg/dL Normal >39 [facility] Comment on above: Result Comment: HDL <40 mg/dL - High Risk HDL > or = 40mg/dL- Desirable HDL >60 mg/dL - Negative Risk Performed By: #### 2 4331-1 #### [facility] ([id number]) [address] [place] [address] Cholesterol in LDL [Mass/Vol] 117 mg/dL Normal <130 [facility] Comment on above: Result Comment: LDL <100 mg/dL - Desirable LDL >160 mg/dL - High Risk Performed By: #### 2 4331-1 #### [facility] ([id number]) [address] [address] [place] [address] Cholesterol in VLDL [Mass/Vol] 36 mg/dL High 0-30 [facility] Comment on above: Performed By: #### 2 4331-1 #### [facility] ([id number]) [address] [address] [place] [address] CHOLESTEROL:HDL 3.0 Normal 1.0-5.0 [facility] Comment on above: Performed By: #### 2 4331-1 #### [facility] ([id number]) [address], [facility] [address] [place] [address] Triglyceride [Mass/Vol] 179 mg/dL High 27-150 [facility] Comment on above: Performed By: #### 2 4331-1 #### [facility] ([id number]) [address] [address] [place] [address] CBC AND AUTO DIFFon 03-03-20 24 ABSOLUTE BASOPHIL 0.0 X10E9/L Normal 0.0-0.2 [facility] Comment on above: Performed By: #### C ROMEL CMP, 77973-8 #### [facility] ([id number]) [address] [address] [place] [address] ABSOLUTE NEUTROPHIL 1.9 X10E9/L Normal 1.5-6.6 [facility] Comment on above: Performed By: #### C ROMEL CMP, 46442-5 #### [facility] ([id number]) [address] [address] [place] [address] Basophils/100 WBC (Bld) 0.7 % Normal [facility] Comment on above: Performed By: #### C ALDO URENA, 46550-8 #### [facility] ([id number]) [address] [address] [place] [address] Eosinophils (Bld) [#/Vol] 0.2 10*3/uL Normal 0.0-0.4 [facility] Comment on above: Performed By: #### Marciano URENA CMP, 48078-2 #### [facility] ([id number]) [address] [address] [place] [address] Eosinophils/100 WBC (Bld) 4.2 % Normal [facility] Comment on above: Performed By: #### Marciano URENA CMP, 71046-5 #### [facility] ([id number]) [address] [address] [place] [address] Erythrocyte distribution width (RBC) [Ratio] 13.8 % Normal 11.5-15.0 [facility] Comment on above: Performed By: #### Marciano URENA CMP, 36828-7 #### [facility] ([id number]) [address] [address] [place] [address] Hematocrit (Bld) [Volume fraction] 35.6 % Normal 35-47 [facility] Comment on above: Performed By: #### Marciano URENA CMP, 83752-8 #### [facility] ([id number]) [address] [address] [place] [address] Hemoglobin (Bld) [Mass/Vol] 11.8 g/dL Normal 11.7-15.5 [facility] Comment on above: Performed By: #### Marciano URENA CMP, 20756-3 #### [facility] ([id number]) [address] [address] [place] [address] Lymphocytes (Bld) [#/Vol] 2.1 10*3/uL Normal 1.0-3.5 [facility] Comment on above: Performed By: #### C ROMEL, CMP, 26376-2 #### [facility] ([id number]) [address] [place] [address] Lymphocytes/100 WBC (Bld) 45.0 % Normal [facility] Comment on above: Performed By: #### Marciano URENA, CMP, 15186-6 #### [facility] ([id number]) [address] [place] [address] MCH (RBC) [Entitic mass] 32.7 pg Normal 27-34 [facility] Comment on above: Performed By: #### Marciano URENA CMP, 68984-2 #### [facility] ([id number]) [address] [place] [address] MCHC (RBC) [Mass/Vol] 33.2 g/dL Normal 32-36 [facility] Comment on above: Performed By: #### Marciano URENA, CMP, 71851-6 #### [facility] ([id number]) [address] [place] [address] MCV (RBC) [Entitic vol] 99 fL Normal 80-100 [facility] Comment on above: Performed By: #### Marciano URENA, CMP, 38164-9 #### [facility] ([id number]) [address] [place] [address] Monocytes (Bld) [#/Vol] 0.4 10*3/uL Normal 0-0.9 [facility] Comment on above: Performed By: #### Marciano URENA, CMP, 62195-4 #### [facility] ([id number]) [address] [place] [address] Monocytes/100 WBC (Bld) 9.7 % Normal [facility] Comment on above: Performed By: #### Marciano URENA, CMP, 29374-1 #### [facility] ([id number]) [address] [address] [place] [address] Neutrophils/100 WBC (Bld) 40.4 % Normal [facility] Comment on above: Performed By: #### C BCA, CMP, 33486-1 #### [facility] ([id number]) [address] [address] [place] [address] Platelet mean volume (Bld) [Entitic vol] 8.3 fL Normal 7-12 [facility] Comment on above: Performed By: #### C BCA, CMP, 13755-2 #### [facility] ([id number]) [address] [address] [place] [address] Platelets (Bld) [#/Vol] 240 10*3/uL Normal 150-450 [facility] Comment on above: Performed By: #### Marciano BCA, CMP, 78153-1 #### [facility] ([id number]) [address], [facility] [address] [place] [address] RBC COUNT 3.61 X10E12/L Low 3.80-5.20 [facility] Comment on above: Performed By: #### C BCA, CMP, 19264-2 #### [facility] ([id number]) [address] [address] [place] [address] WBC (Bld) [#/Vol] 4.6 10*3/uL Normal 4.0-11.0 [facility] Comment on above: Performed By: #### C BCA, CMP, 92360-6 #### [facility] ([id number]) [address] [address] [place] [address] COMPREHENSIVE METABOLIC PANE Brad 03-03-2024 Albumin [Mass/Vol] 4.2 g/dL Normal 3.2-5.3 [facility] Comment on above: Performed By: #### C BCA, CMP, 99147-3 #### [facility] ([id number]) [address] [place] [address] ALP [Catalytic activity/Vol] 70 U/L Normal 39-130 [facility] Comment on above: Performed By: #### C ROMEL CMP, 25280-4 #### [facility] ([id number]) [address] [place] [address] ALT [Catalytic activity/Vol] 13 U/L Normal 0-31 [facility] Comment on above: Performed By: #### C ROMEL, CMP, 65889-0 #### [facility] ([id number]) [address] [place] [address] Anion gap [Moles/Vol] 8 mmol/L Normal 5-15 [facility] Comment on above: Performed By: #### Marciano URENA, CMP, 51789-2 #### [facility] ([id number]) [address] [place] [address] AST [Catalytic activity/Vol] 15 U/L Normal 0-41 [facility] Comment on above: Performed By: #### Marciano BCA, CMP, 33329-4 #### [facility] ([id number]) [address] [place] [address] Bilirubin [Mass/Vol] 0.4 mg/dL Normal 0.3-1.2 [facility] Comment on above: Performed By: #### C BCA, CMP, 26082-8 #### [facility] ([id number]) [address] [place] [address] Calcium [Mass/Vol] 9.1 mg/dL Normal 8.5-10.5 [facility] Comment on above: Performed By: #### C BCA, CMP, 14814-4 #### [facility] ([id number]) [address] [place] [address] Chloride [Moles/Vol] 102 mmol/L Normal 98-109 [facility] Comment on above: Performed By: #### C ALDO URENA, 49759-5 #### [facility] ([id number]) [address] [place] [address] CO2 [Moles/Vol] 30 mmol/L Normal 22-32 [facility] Comment on above: Performed By: #### C ALDO URENA, 71280-5 #### [facility] ([id number]) [address] [place] [address] Creatinine [Mass/Vol] 1.08 mg/dL High 0.40-1.00 [facility] Comment on above: Result Comment: METH OD TRACEABLE TO IDMS STANDARD Performed By: #### C ALDO UERNA, [id number] #### [facility] ([id number]) [address], [facility] [address] [place] [address] GFR/1.73 sq M.predicted among non-blacks MDRD (S/P/Bld) [Vol rate/Area] 52 mL/min/{1.73_m2} Low >59 [facility] Comment on above: Result Comment: Reported eGFR is based on the CKD-EPI 2020 equation that does not use a race coefficient. Performed By: #### C ALDO URENA, 97251-2 #### [facility] ([id number]) [address], [address] [place] [address] Glucose [Mass/Vol] 93 mg/dL Normal 65-99 [facility] Comment on above: Performed By: #### C ALDO URENA, [id number] #### [facility] ([id number]) [address] [address] [place] [address] Potassium [Moles/Vol] 4.7 mmol/L Normal 3.5-5.0 [facility] Comment on above: Performed By: #### Marciano URENA CMP, [id number] #### [facility] ([id number]) [address], [address] [place] [address] Protein [Mass/Vol] 6.9 g/dL Normal 6.0-8.0 [facility] Comment on above: Performed By: #### Marciano URENA CMP, 58789-6 #### [facility] ([id number]) [address], [facility] [address] [place] [address] Sodium [Moles/Vol] 140 mmol/L Normal 134-146 [facility] Comment on above: Performed By: #### Marciano URENA CMP, 95031-7 #### [facility] ([id number]) [address], [facility] [address] [place] [address] Urea nitrogen [Mass/Vol] 16 mg/dL Normal 5-27 [facility] Comment on above: Performed By: #### Marciano URENA CMP, 53793-3 #### [facility] ([id number]) [address], [facility] [address] [place] [address] Lipid 1996 panelon 4 Cholesterol [Mass/Vol] 299 mg/dL High 150-200 [facility] Comment on above: Performed By: #### Marciano URENA CMP, 77497-4 #### [facility] ([id number]) [address], [facility] [address] [place] [address] Cholesterol in HDL [Mass/Vol] 52 mg/dL Normal >39 [facility] Comment on above: Result Comment: HDL <40 mg/dL - High Risk HDL > or = 40mg/dL- Desirable HDL >60 mg/dL - Negative Risk Performed By: #### Marciano URENA, CMP, 87046-2 #### [facility] ([id number]) [address], [address] [place] [address] Cholesterol in LDL [Mass/Vol] 169 mg/dL High <130 [facility] Comment on above: Result Comment: LDL <100 mg/dL - Desirable LDL >160 mg/dL - High Risk Performed By: #### C ALDO URENA, 88905-4 #### [facility] ([id number]) [address], [address] [place] [address] Cholesterol in VLDL [Mass/Vol] 78 mg/dL High 0-30 [facility] Comment on above: Performed By: #### C ALDO URENA, 19429-4 #### [facility] ([id number]) [address], [address] [place] [address] CHOLESTEROL:HDL 5.8 High 1.0-5.0 [facility] Comment on above: Performed By: #### Marciano URENA CMP, 31841-4 #### [facility] ([id number]) [address], [address] [place] [address] Triglyceride [Mass/Vol] 390 mg/dL High 27-150 [facility] Comment on above: Performed By: #### Marciano URENA CMP, 27511-6 #### [facility] ([id number]) [address], [address] [place] [address] MR LUMBAR SPINE WO CONTon MR LUMBAR [...] Mykel Guzman MD on 11/17/2023 10:56 AM [facility] XR ANKLE ABHISHEK MIN 3 VIEWSon [...] by: RAMSES GONGORA Date: 2022-02-01 11:[address] [facility] [address] ANKLE RT WO CONon 022 [...] IVAN Date: 2021-12-19 11:38 Normal [facility] XR ANKLE ABHISHEK MIN 3 VIEWSon 1 [...] by: NORBERTO IVAN Date: 2021-11-02 16:25 Normal [facility] Cardiovascular Lab Reporton 05-30-2019 Cardiovascular Lab Report [id number] Physician: Pepe Barraza of Jason Chavez Medicine Service Date: 05/29/2019 Division of Birthdate: 1945 Cardiology Room #: [facility] Cardiovascular Services [place] [address] Cardiovascular Laboratory Report INDICATION: The patient is [...] signed informed consent. She was brought to pipelines laborer in a fasting state. The right groin area was prepped and draped in usual fashion. Using micropuncture technique, the right common femoral artery was accessed. The inner cannula was advanced. Limited femoral angiography was performed followed by upsizing to a 6-Greek x 11 cm sheath. Access was obtained using the same technique in the right common femoral vein and a 6-Greek x 11 cm sheath was placed. A 6-Greek Pena catheter was used for right heart catheterization with measurement of pressures and calculation of cardiac output using the estimated Anila method. Pena catheter was removed. Bilateral selective coronary angiography was then performed using 6-Greek JL4 and JR4 diagnostic catheters. Catheters were removed. Procedure was concluded. The right femoral arteriotomy was managed with a 6-Greek Angio-Seal device with good hemostasis. The access [...] P/Pepe Chavez M.D. Date Trans: 05/29/2019 10:55 P/fionao [id number] cc: Lucia Esteban M.D. [address] [facility] [address] [facility] Otheron 01-18-1999 CONVERTED ELECTRONIC SIGNATURE JAYE ZABALA AUTO DESIGN CHECKER (Electronic signature on file) Final Signed Out: 01/18/1999 16:25 [facility] CONVERTED FINAL DIAGNOSIS SPECIMEN ADEQUACY SATISFACTORY FOR CYTOLOGIC EVALUATION BUT LIMITED BY: NO ENDOCERVICAL COMPONENTS. GENERAL CATEGORIZATION WITHIN NORMAL LIMITS HORMONAL EVALUATION HORMONAL PATTERN COMPATIBLE WITH AGE AND HISTORY [facility] CONVERTED ORDERING PROVIDER Ordering Provider: SHEA REYES [facility] CONVERTED PAP DISCLAIMER The Pap test serves as a screening tool for early detection of cervical cancer. The Pap test does not represent a final diagnostic test for cervical cancer. Furthermore, the Pap test was not designed to screen for other malignancies (endometrial, ovarian cancer, etc....). False negatives and false positives have occurred. If clinically indicated, further patient evaluation is recommended. [facility] Vital Signs Date Time Vital Sign Value Performing Clinician Faci lity 04-16-2025 14:58-0400 Body height 157.48 cm Stefani Quezada MD Work Phone: [facility] 04-16-2025 14:58-0400 Body mass index (BMI) [Ratio] 31.8 kg/m2 Stefani Quezada MD Work Phone: [facility] 04-16-2025 14:58-0400 Body temperature 96.9 [degF] Stefani Quezada MD Work Phone: [facility] 04-16-2025 14:58-0400 Body weight 78.98 kg Stefani Quezada MD Work Phone: [facility] 04-16-2025 14:58-0400 Diastolic blood pressure 70 mm[Hg] Stefani Quezada MD Work Phone: [facility] 04-16-2025 14:58-0400 Heart rate 56 /min Stefani Quezada MD Work Phone: [facility] 04-16-2025 14:58-0400 Respiratory rate 18 /min Stefani Quezada MD Work Phone: [facility] 04-16-2025 14:58-0400 SaO2% (BldA) [Mass fraction] 96 % Stefani Quezada MD Work Phone: [facility] 04-16-2025 14:58-0400 Systolic blood pressure 144 mm[Hg] Stefani Quezada MD Work Phone: [facility] 02-19-2025 10:51-0400 Body height 152.4 cm María Thapa DO Work Phone: [facility] [employer] 02-19-2025 10:51-0400 Body mass index (BMI) [Ratio] 34.98 kg/m2 María Norriston DO [facility] 02-19-2025 10:51-0400 Body weight 81.24 kg María Norriston DO Work Phone: [facility] 02-19-2025 10:51-0400 Diastolic blood pressure 50 mm[Hg] María Norriston DO Work Phone: [facility] 02-19-2025 10:51-0400 Heart rate 60 /min María Norriston DO Work Phone: [facility] 02-19-2025 10:51-0400 SaO2% (BldA) [Mass fraction] 98 % María Norriston DO Work Phone: [facility] 02-19-2025 10:51-0400 Systolic blood pressure 132 mm[Hg] María Elier DO Work Phone: [facility] 12-22-2024 09:09-0500 Body height 157.5 cm [facility] 3 [facility] [employer] 12-22-2024 09:09-0500 Body mass index (BMI) [Ratio] 32.92 kg/m2 [facility] 12-22-2024 09:09-0500 Body weight 81.65 kg Metro 3 [facility] 12-11-2024 12:08-0500 Body height 157.5 cm María Thapa DO Work Phone: [facility] 12-11-2024 12:08-0500 Body mass index (BMI) [Ratio] 33 kg/m2 María Thapa DO Work Phone: [facility] 12-11-2024 12:08-0500 Body weight 81.83 kg María Thapa DO Work Phone: [facility] 12-11-2024 12:08-0500 Diastolic blood pressure 49 mm[Hg] María Thapa DO Work Phone: [facility] 12-11-2024 12:08-0500 Heart rate 53 /min María Thapa DO Work Phone: [facility] 12-11-2024 12:08-0500 SaO2% (BldA) [Mass fraction] 99 % María Thapa DO Work Phone: [facility] 12-11-2024 12:08-0500 Systolic blood pressure 123 mm[Hg] María Thapa DO Work Phone: [facility] 01-11-2024 09:17-0500 Body height 157.5 cm Vicenta Fernandes MD Work Phone: [facility] 01-11-2024 09:17-0500 Body mass index (BMI) [Ratio] 32.19 kg/m2 Vicenta Fernandes MD Work Phone: [facility] 01-11-2024 09:17-0500 Body weight 79.83 kg Vicenta Fernandes MD Work Phone: [facility] Encounters Encounter Date Encounter Type Care Provider Facility Start: 04-23-2025 End: 04-23-2025 Orders Only Scanning Provider External [facility] Start: 04-16-2025 End: [facility] Work Phone: Start: 04-16-2025 End: 04-16-2025 Departed Referred Stefani Quezada MD Work Phone: [facility] Start: 04-16-2025 End: 04-16-2025 ambulatory Stefani Quezada MD Work Phone: [facility] Work Phone: Start: 04-16-2025 End: 04-16-2025 Patient encounter procedure Stefani Quezada MD Work Phone: Pending Sale To [facility] Work Phone: Start: 04-14-2025 End: 04-14-2025 ambulatory Natasha Taylor Facility:[facility] Start: 04-14-2025 End: 04-14-2025 Departed Referred Stefani Quezada MD Work Phone: [facility] Start: 03-30-2025 End: 04-01-2025 Follow-up encounter Brannon DAVILA Work Phone: [facility] Start: 03-30-2025 End: 03-30-2025 Emergency department patient visit [facility] Start: 03-28-2025 End: 03-28-2025 ambulatory Stefani Quezada Facility:[facility] Start: 03-28-2025 End: 03-28-2025 Departed Referred Stefani Quezada MD Work Phone: [facility] Start: 03-28-2025 End: 03-28-2025 Clinisync Result Encounter Brannon DAVILA Work Phone: [facility] Unsolicited Start: 03-28-2025 End: 03-28-2025 Clinisync Result Encounter Brannon DAVILA Work Phone: [facility] Unsolicited Start: 02-20-2025 End: 02-20-2025 Orders Only María Thapa DO Work Phone: [facility] Comment on above: Moderate persistent asthma without complication (Primary Dx) Start: 02-19-2025 End: 02-19-2025 Office outpatient visit 25 minutes María Beck Elston DO Work Phone: [facility] Comment on above: Pulmonary nodules/le sions, multiple (Primary Dx); Dyspnea on exertion; Moderate persistent asthma without complication Start: 02-19-2025 End: 02-19-2025 ambulatory [facility] Kiran [facility] Start: 02-12-2025 End: 02-16-2025 [facility] Start: 02-06-2025 End: 02-06-2025 Bamboo flowsheet Brannon DAVILA Work Phone: [facility] Start: 02-06-2025 End: 02-06-2025 Bamboo flowsheet Brannon Carranza PA Work Phone: [facility] Start: 02-06-2025 End: 02-06-2025 Office outpatient visit 15 minutes Brannon DAVILA Work Phone: [facility] Comment on above: Acute pain of right knee (Primary Dx); Arthritis of right knee Start: 02-06-2025 End: 02-06-2025 ambulatory BRANNON CARRANZA Not Available Start: 01-21-2025 End: 01-21-2025 ambulatory [facility] Start: 12-25-2024 End: 12-25-2024 Evaluation and management of inpatient JAIER S SONDRA [facility] Start: 12-22-2024 End: 12-22-2024 Evaluation and management of inpatient LUCIA ESTEBAN [facility] Start: 12-22-2024 End: 12-22-2024 [facility] Phone Call Provider 3 Mikey Zamora [facility]-Admission [facility] On [facility] Start: 12-16-2024 End: 12-16-2024 Telephone encounter Franca Rgealado RN Work Phone: [facility] Start: 12-12-2024 Encounter for other preprocedural examination [facility] Start: 12-12-2024 End: 12-12-2024 ambulatory [facility] Kiran [facility] Start: 12-11-2024 End: 12-16-2024 Patient encounter status Renae Torres RN [facility] Start: 12-11-2024 End: 12-11-2024 Refill María Kiran [facility] DO Work Phone: [facility] Start: 12-11-2024 End: 12-16-2024 Telephone encounter [facility] Start: 12-11-2024 End: 12-11-2024 ambulatory [facility] Start: 12-11-2024 End: 12-11-2024 Office outpatient new 60 minutes María Thapa DO Work Phone: [facility] Comment on above: Pulmonary nodules/le sions, multiple (Primary Dx); Pulmonary nodule Start: 12-09-2024 End: 12-09-2024 ambulatory [facility] Start: 12-04-2024 ambulatory [facility] Start: 12-02-2024 ambulatory [facility] Start: 11-13-2024 End: 11-13-2024 ambulatory [facility] Start: 11-13-2024 Encounter for other preprocedural examination [facility] Start: 11-10-2024 End: 11-10-2024 ambulatory [facility] Start: 10-24-2024 End: 10-24-2024 ambulatory [facility] Start: 08-27-2024 End: 08-27-2024 Mrecedes Herring NP Work Phone: [facility] Start: 08-27-2024 End: 08-27-2024 Bamboo flowsheet Lavinia Herring BUSINESS SEGMENT MANAGER Work Phone: [facility] Start: 08-27-2024 End: 08-27-2024 ambulatory LAVINIA HERRING Not Available Start: 08-27-2024 End: 08-27-2024 Office outpatient visit 25 minutes Lavinia Herring BUSINESS SEGMENT MANAGER Work Phone: [facility] Comment on above: Primary osteoarthrit is of right knee (Primary Dx); Right knee pain, unspecified chronicity Start: 07-19-2024 End: 07-20-2024 Emergency department patient visit [facility] Start: 07-19-2024 End: 07-20-2024 Emergency department patient visit [facility] Start: 06-10-2024 End: 06-10-2024 ambulatory [facility] Start: 05-19-2024 End: 05-19-2024 ambulatory [facility] Start: 04-16-2024 End: 04-16-2024 ambulatory LAVINIA HERRING Not Available Start: 03-03-2024 End: 03-03-2024 [facility] Start: 01-11-2024 End: 01-11-2024 Office outpatient visit 15 minutes Vicenta Fernandes MD Work Phone: [facility] Comment on above: Neuropathy (Primary Dx) Start: 11-16-2023 End: 11-16-2023 ambulatory VICENTA FERNANDES [facility] Start: 11-09-2023 Telephone encounter Estrella Brown LPN [facility] Comment on above: MRI [...] End: 05-30-2019 Patient encounter procedure PROVIDER UNKNOWN Facility:[facility] Start: 01-03-1999 End: 01-03-1999 Patient encounter procedure Conversion Santa Aguilar [facility] Start: 01-03-1999 Results Only Conversion Santa Aguilar [facility] Procedures Date Procedure Procedure Detail Performing Clinician Start: 04-14-2025 Urine culture Stefani Manning MD Work Phone: Start: 03-28-2025 URINE CULTURE - [facility] Massimo DAVILA Work Phone: Start: 03-28-2025 Urine culture Stefani Manning MD Work Phone: Start: 02-19-2025 Follow-up visit Follow-up MARÍA THAPA Start: 02-18-2025 PULMONARY FUNCTION TEST Scanning Provider External Start: 02-06-2025 Arthrocentesis aspir &/inj major jt/bursa w/o us Brannon DAVILA Work Phone: Start: 08-27-2024 Arthrocentesis aspir &/inj major jt/bursa w/o us Lavinia Herring BUSINESS SEGMENT MANAGER Work Phone: Start: 08-27-2024 Radiologic examinati on knee 1/2 views Lavinia Herring BUSINESS SEGMENT MANAGER Work Phone: Start: 02-22-1999 CONVERTED CYTOLOGY INSURANCE CLERK Conversion Santa Aguilar Plan of Treatment Date Care Activity Detail Author Start: 02-19-2026 Tobacco Screening Tobacco Screening [facility] Start: 12-25-2025 Tobacco Screening Tobacco Screening [facility] Start: 12-11-2025 Tobacco Screening Tobacco Screening [facility] Start: 07-13-2025 Influenza vaccination Influenza Vacc ine [facility] Start: 05-21-2025 End: 05-21-2025 Patient encounter procedure 05/21/2025 2:30 PM EDT Office Visit [facility] [place] [address] María Thapa, DO [address] [address] [facility] Start: 04-16-2025 Urine culture [facility] Start: 04-16-2025 Bacteria identified in Urine by Culture Urine Culture [facility] Start: 04-14-2025 Bacteria identified in Urine by Culture Urine Culture [facility] Start: 04-14-2025 Urine culture [facility] Start: 02-19-2025 End: 02-19-2025 Patient encounter procedure 02/19/2025 10:45 AM EDT Office Visit [facility] [place] [address] María Thapa, DO [address] [address] [facility] Start: 02-06-2025 End: 02-06-2025 Patient encounter procedure 02/06/2025 11:30 AM EDT Office Visit [facility] [address] [place] [phone] Brannon Carranza PA [address] [facility] [address] [place] [address] Acute pain of right knee (Primary Dx) [facility] Comment on above: Acute pain of right knee (Primary Dx) Start: 01-06-2025 End: 01-06-2025 Admission to same day surgery center 01/06/2025 1:00 PM EST - 01/06/2025 2:30 PM EST Surgery [facility] [address] [place] [phone] María Thapa, DO [address] [address] ION ROBOTIC BRONCOSCOPY [82891 (CPT )] [facility] Comment on above: ION ROBOTIC BRONCOSC OPY [51895 (CPT )] Start: 01-06-2025 End: 01-06-2025 Brnchsc incl fluor gdnce dx w/cell washg spx [facility] Start: 01-06-2025 Subsequent hospital visit by physician 01/06/2025 1:00 PM EST Hospital Encounter [facility] [address] [place] [phone] María Thapa, DO [address] [address] [facility] Start: 12-25-2024 End: 12-25-2024 Admission to same day surgery center 12/25/2024 1:15 PM EST - 12/25/2024 3:00 PM EST Surgery [facility] [address] [place] [phone] Isidra Saeed MD [address] [facility] [address] [place], [place] [id number] ION ROBOTIC BRONCOSCOPY [[id number] (CPT )] [facility] Comment on above: ION ROBOTIC BRONCOSC OPY [78098 (CPT )] Start: 12-25-2024 End: 12-25-2024 Brnchsc incl fluor gdnce dx w/cell washg spx [facility] Start: 12-25-2024 Subsequent hospital visit by physician 12/25/2024 1:15 PM EST Hospital Encounter [facility] [address] [place] [address] Isidra Saeed MD [address] [facility] [address] [place] [address] [facility] Start: 12-22-2024 End: 12-22-2024 Admission to establishment 12/22/2024 8:30 AM EST Support Visit [facility] Pre[facility]Ad[facility] Clinic On [address] [address] [facility] On [facility] Start: 12-12-2024 End: 12-12-2024 Patient encounter procedure 12/12/2024 9:30 AM EST Appointment [facility] CT [address] [place] [id number] María Thapa DO [address] [address] [facility] [address] Start: 12-11-2024 End: 12-11-2025 CT Chest limited WO contrast CT Ion Chest without contrast Imaging STAT Pulmonary nodules/lesions, multiple Expected: 12/11/2024, Expires: 12/11/2025 [facility] Work Phone: Comment on above: Expected: 12/11/2024 , Expires: 12/11/2025 Start: 10-26-2024 Adult BMI Screening Adult BMI Screen ing [facility] Start: 10-26-2024 Tobacco Screening Tobacco Screening [facility] Start: 07-13-2024 COVID-19 Vaccine ( season) COVID-19 Vaccine ( season) [facility] Start: 07-13-2024 Influenza vaccination Influenza Vacc ine (#1) [facility] Start: 11-09-2023 End: 11-09-2024 MR Lumbar spine WO contrast MR lumbar spine without contrast Imaging Routine Neuropathy Expected: 11/09/2023, Expires: 11/09/2024 [facility] Work Phone: Comment on above: Expected: 11/09/2023 , Expires: 11/09/2024 Start: 07-13-2023 COVID-19 Vaccine ( season) COVID-19 Vaccine ( season) [facility] Start: 07-13-2023 Influenza vaccination Influenza Vacc ine [facility] Start: 07-25-2022 ambulatory Ambulatory Facility:H 1 Start: 07-13-2020 Influenza vaccination INFLUENZA (#1) [facility] Start: 10-09-2018 Pneumococcal Vaccine : 65+ Years (2 of 2 - PCV) Pneumococcal Vaccine: 65+ Years (2 of 2 - PCV) [facility] Start: 07-19-2016 Administration of varicella zoster vaccine Zoster (Shingles) Vaccine (2 of 3) [facility] Start: 01-18-2009 ADVANCE DIRECTIVE DISCUSSION ADVANCE DIRECTIVE DISCUSSION [facility] Start: 01-18-2009 BONE DENSITY BONE DENSITY [facility] Start: 01-18-2009 Fall Risk Screening Fall Risk Screen ing [facility] Start: 01-18-2009 PNEUMOVAX AGE 65 AND OVER WITH 5YR LOOKBACK (#1) PNEUMOVAX AGE 65 AND OVER WITH 5YR LOOKBACK (#1) [facility] Start: 01-18-1994 SHINGRIX VACCINE (1 of 2) SHINGRIX VACCINE (1 of 2) [facility] Start: 01-18-1994 Tuberculosis screening COLOREC ROMI CANCER SCREENING,SEE MODIFIER [facility] Start: 01-18-1989 DIABETES SCREEN DIABETES SCREEN [facility] Start: 01-18-1989 LIPID SCREEN LIPID SCREEN [facility] Start: 01-18-1963 DTaP,Tdap and Td Vaccines (1 - Tdap) DTaP,Tdap and Td Vaccines (1 - Tdap) [facility] Start: 01-18-1963 Urine microalbumin profile DTAP,TDAP,TD (1 - Tdap) [facility] Start: 01-18-1962 Adult BMI Follow Up Plan Adult BMI Follow Up Plan [facility] Start: 01-18-1962 HEPATITIS C SCREENING HEPATITIS C SC STEVEN [facility] Start: 1956 Depression Screening Depression Scre ening [facility] Start: 1945 Medicare Annual Well ness Visit Medicare Annual Wellness Visit [facility] Complement C3 [Mass/volume] in Serum or Plasma [facility] Complement C4 [Mass/volume] in Serum or Plasma [facility] End: 02-19-2026 Eosinophil count Eosinophil count Lab Routine Moderate persistent asthma without complication 1 Occurrences starting 02/19/2025 until 02/19/2026 [facility] [employer] Comment on above: 1 Occurrences starti ng 02/19/2025 until 02/19/2026 Renal function 2000 panel - Serum or Plasma [facility] End: 02-19-2026 Respiratory allergy panel Respiratory allergy panel Lab Routine Moderate persistent asthma without complication 1 Occurrences starting 02/19/2025 until 02/19/2026 [employer] Work Phone: Comment on above: 1 Occurrences starti ng 02/19/2025 until 02/19/2026 [place]INE CULTURE [place] [facility] [place] CULTU RE - [facility] Lab Routine 03/28/2025 5:58 PM EDT [facility] Work Phone: Kidney - bilateral [facility] Immunizations Immunization Date Immunization Notes Care Provider Chicho felix 10-22-2024 influenza virus vaccine, unspecified formulation Patricia Velazquez [facility] 09-09-2020 influenza virus vaccine, unspecified formulation Estrella Brown POT HOLDER B[employer] [facility] 05-24-2016 zoster vaccine, unspecified formulation Estrella Brown POT HOLDER [employer] [facility] Payers Date Payer Category Payer Self-pay 2024 Unknown [id number] 2010 Managed Care Other (unspecified) [facility] [id number] 2010 Private Health Insurance [id number] .[id number] .[id number] 2009 Medicare [id number]. 1.13.693.2 .[id number] 1959 Medicare [id number] 1959 Unknown [id number] 1944 Unknown [id number] 2.16.840.1.706958.3.579.2 .647 1944 Unknown [id number] 2.16.840.1.643581.3.579.2 .593 1944 Unknown [id number] 2.16.840.1.540521.3.579.2 .593 1944 Unknown [id number] 2.16.840.1.591641.3.579.2 .593 1944 Unknown [id number] 2.16.840.1.467837.3.579.2 .593 1944 Unknown [id number] 2.16.840.1.057450.3.579.2 .593 1944 Unknown [id number] 2.16.840.1.133491.3.579.2 .593 1944 Unknown [id number] 2.16.840.1.747310.3.579.2 .593 1944 Unknown [id number] 2.16.840.1.712847.3.579.2 .593 1944 Unknown [id number] 2.16.840.1.395908.3.579.2 .593 1944 Unknown [id number] 2.16.840.1.188009.3.579.2 .593 1944 Unknown [id number] 2.16.840.1.915723.3.579.2 .593 1944 Unknown [id number] 2.16.840.1.617730.3.579.2 .593 1944 Unknown [id number] 2.16.840.1.678768.3.579.2 .128 1944 Unknown [id number] 2.16.840.1.341666.3.579.2 .128 1944 Unknown [id number] 2.16.840.1.557010.3.579.2 .1285 1944 Unknown [id number] 2.16.840.1.027298.3.579.2 .128 1944 Unknown [id number] 2.16.840.1.477354.3.579.2 .128 1944 Unknown [id number] 2.16.840.1.501196.3.579.2 .128 1944 Unknown [id number] 2.16.840.1.863575.3.579.2 .1285 1944 Unknown [id number] 2.16.840.1.701816.3.579.2 .1285 1944 Unknown [id number] 2.16.840.1.101835.3.579.2 .1285 1944 Unknown [id number] 2.16.840.1.134330.3.579.2 .1285 1944 Unknown [id number] 2.16.840.1.706036.3.579.2 .1285 1944 Unknown [id number] 2.16.840.1.462824.3.579.2 .128 1944 Unknown [id number] 2.16.840.1.190440.3.579.2 .1286 1944 Unknown [id number] 2.16.840.1.664313.3.579.2 .1259 1944 Unknown [id number] 2.16.840.1.103550.3.579.2 .1259 1944 Unknown [id number] 2.16.840.1.579040.3.579.2 .1259 1944 Unknown [id number] 2.16.840.1.082173.3.579.2 .1259 1944 Unknown [id number] 2.16.840.1.865373.3.579.2 .1286 1944 Unknown [id number] 2.840.1.961790.3.579.2 .1286 1944 Unknown [id number] 2.840.1.160848.3.579.2 .128 1944 Unknown [id number] 2.840.1.787990.3.579.2 .128 1944 Unknown [id number] 2.0.1.535387.3.579.2 .128 1944 Unknown [id number] 2.840.1.519436.3.579.2 .1286 1944 Unknown [id number] 2.840.1.604796.3.579.2 .1286 Medicare Medicare Outpatient [id number] 4A [id number] Unknown [id number] 2.16840.1.848098.3.579.2 .531 Unknown [id number] 2.840.1.247221.3.579.2 .531 Unknown [id number] 2.840.1.070747.3.579.2 .531 Social History Date Type Detail Facility Tobacco smoking stat [facility] Unknown if ever smoked [facility] Sex Assigned At Not on file [facility] Start: 09-19-2023 End: 04-16-2024 Tobacco smoking status NHIS Never smoked tobacco [facility] Start: 09-19-2023 End: 04-16-2024 Tobacco use and exposure Smokeless tobacco non-user [facility] Start: 04-16-2024 End: 02-19-2025 Alcoholic beverage intake Current drinker of alcohol (finding) [facility] Start: 12-23-2020 End: 04-16-2024 History of Social function [facility] Start: 12-23-2020 End: 04-16-2024 Tobacco use panel [facility] Start: 1945 Sex assigned at Female [facility] Start: 08-01-2020 Gender identity Identifies as female gender (finding) [facility] Start: 04-05-2024 Sexual orientation Heterosexual (finding) [facility] Adolescent depressio n screening assessment 0 [facility] Start: 06-17-2015 End: 04-15-2025 Sex Female (finding) [facility] Tobacco smoking stat us NHIS Unknown if ever smoked [facility] Work Phone: Medical Equipment Procedure Code Equipment Code Equipment Origin al Text Equipment Identifier Dates Cement Bn Pal[place] s Radpq 40g Rpl [id number] - Sn/A - [id number] Start: 01-15-2018 Cmpt Fem D Kn Lt Lpsflx Gndr Rpl [id number] - Sn/A - [id number] Start: 01-15-2018 Ins Artc 3-4 C-D 10mm Kn Fx - Sn/A - [id number]/SN/A, [id number] FDA Start: 01-15-2018 Cmpt Ptlr 32mm N xgn Alply Rpl [id number] - Sn/A - [id number]/SN/A, [id number] FDA Start: 01-15-2018 Plt Tib [id number] Nxgn Kn Cmnt Rpl [id number] + [id number] - Sn/A - [id number] Start: 01-15-2018 Clinical Notes 02-14-2022 to 04-16-2025 Note Date & Type Note Facility 04-16-2025 Evaluation note Diagnosis Onset Date Resolution Acute kidney injury superimposed on CKD acute April 16 2:50pm Anemia of chronic disease acute April 16, 2025 2:50pm Breast cancer acute April 16, 025 2:50pm CKD (chronic kidney disease) stage 3, GFR 30-59 ml/min acute April 16, 2025 2:50pm Hyperlipidemia acute April 16, 2025 2:50pm Hypertensive chronic kidney disease with stage 1 through stage 4 chronic ki acute April 16, 2025 2:50pm [facility] Work Phone: 1(303) 206-476804-11-2025 Miscellaneous Notes* Telephone Encounter - RATNA Frank - 02/20/2025 10:21 AM EDT Home nebulizer and tubing kit orders with supportive documentation [facility]ed to [facility]. [facility] Telephone encounter Note* Telephone Encounter - RATNA Frank - 02/20/2025 10:21 AM EDT Home nebulizer and tubing kit orders with supportive documentation faxed to [facility]. [facility]04-11-2025 History of Present illness Narrative* María Thapa DO - 02/20/2025 7:39 AM EDT Notification from pharmacy received that advair diskus not covered and Breo preferred. Rx for Breo sent to pharmacy documented in this encounterMer[facility]04-10-[facility] History of Present illness Narrative* María Thapa DO - 02/19/2025 10:45 AM EDT [facility] Progress Note Patient - [...] pulmonary nodule. Lymph node was negative however rightmiddle lobe was positive for metastatic carcinoma consistent with breast origin. She has been following closely with her oncologist since. She continues however to get the shortness of breath. She has noticed that this was worse most particularly within the last 6 months. She recently had a trip to [facility] and had to stop frequently to [...] not wake up out of sleep winded orcoughing. No previous pulmonary diagnosis such as asthma [...] Meds Medications Reviewed. Dr. María Thapa DO. [facility] Office: [phone] documented in this encounterMercy Health [facility]04-10-2025 Instructions* Patient Instructions* María Thapa DO - 02/19/2025 10:45 AM [...] full vial of medicine. documented in this encounterMercy Health [facility]04-03-2025 Miscellaneous Notes* Telephone Encounter - RATNA Frank - 02/12/2025 9:34 AM EDT Chief Operator Synthesis received message from requesting that we add patient over lunch on 02/19/2025, as Dr. Vazquez would like patient to see . Chief Operator Synthesis called patient and left voicemail asking for patient to return our call at her earliest convenience to get her scheduled. * Telephone Encounter - RATNA Frank - 02/12/2025 9:34 AM EDT Chief Operator Synthesis received message from requesting that we add patient over lunch on 02/19/2025, as Dr. Vazquez would like patient to see SE. [employer] called patient and left voicemail asking for patient to return our call at her earliest convenience to get her scheduled. * Telephone Encounter - RATNA Frank - 02/12/2025 9:34 AM EDT Patient called office back and scheduled an appointment with SE on 02/19/2025 at 10:45am in [place]. documented in this encounterMercy [facility]04-03-2025 Telephone encounter Note* Telephone Encounter - RATNA Frank - 02/12/2025 9:34 AM EDT Chief Operator Synthesis received message from requesting that we add patient over lunch on 02/19/2025, as Dr. Vazquez would like patient to see SE. Chief [employer] called patient and left voicemail asking for patient to return our call at her earliest convenience to get her scheduled. [facility]04-03-2025 Telephone encounter Note* Telephone Encounter - RATNA Frank - 02/12/2025 9:34 AM EDT Chief Operator Synthesis received message from requesting that we add patient over lunch on 02/19/2025, as Dr. Vazquez would like patient to see SE. Chief [employer] called patient and left voicemail asking for patient to return our call at her earliest convenience to get her scheduled. [facility]04-03-2025 Telephone encounter Note* Telephone Encounter - RATNA Frank - 02/12/2025 9:34 AM EDT Patient called office back and scheduled an appointment with on 02/19/2025 at 10:45am in [place]. [facility] HospitalLendKey Technologies, Inc.[facility] [id number] History of Present illness Narrative* LOLA Dickey - 02/06/2025 11:30 AM EDTAssociated Order(s): L Inj/Asp: R knee Post-Procedure Diagnose(s): Arthritis of right knee Images from the original note were not included. HISTORY OF PRESENT ILLNESS: EST PT Margy Oakes is an 80 y.o. @ female. (EST PT, LAST VISIT WITH [facility]) RT KNEE PAIN, 3 YRS (2021)- NOTES GRADUAL INCREASE WITH PAIN- PT ISLEAVING FOR IONE ON SUNDAY- REQUESTING CORTISONE INJ PT RECENTLY [...] IN RIGHT KNEE, NEUROVASC INTACT S/P INJ, TOLERATEDWELL Procedure, treatment alternatives, risks and benefits explained, [...] alleviate symptoms before her upcoming trip to [place]. She will contact the clinicon an as- needed basis if her symptoms worsen for reevaluation upon her return. There is no calf tenderness, and she has previously found relief from injections. 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 PROCEDURE An injection was administered today to alleviate right knee pain. Questions answered in laymen terms at the bedside. The diagnosis, home exercise plan and any ongoing restrictions/ recommendations reviewed. If unable to be reached in office, I recommend evaluation at nearest Emergency Room if any symptoms worsened or new symptoms develop for requiring urgent evaluation. documented in this encounterWashington County Memorial [id number] NoteB[facility] Note Reason for cardiology [...] 47 11/13/2024 Cholesterol 215, (more content not included)...[facility]02-10-2025 Instructions* Pre-Procedure Instructions - Paris Robertson RN - 12/22/2024 8:30 AM EST Your surgery/procedure is scheduled at [facility] on 12/25/2024 at 1315 Arrival Time 1115 [facility] Address: [address] [place] [address] in [address] Parking lot located on [facility]. Report to the Entrance B. Check in at the information desk the surgery. The waiting room located on the second floor. If you have any questions prior to surgery, please call Pre-Admission Clinic at [phone] between 7:30 am and 4:30 pm Sunday through Sunday. If you have questions the morning of surgery, please call the Pre-op Department at [phone]. Notify your SURGEON if you develop any [...] specifically instructed by your surgeon to hold. STOPtaking all herbal products/teas one week prior to [...] piercings ,hair extensions that contain metal, nail palestinian, make-up, and contact lens. You may brush [...] items and leave them in the car untilyou are taken to your room after surgery. [...] following some types of surgeries involving the eyes,ears, sinuses and throat. Always follow your doctor's [...] RIGHTS AND RESPONSIBILITIES As a patient at [facility], you have the right to: Receive medical care and be informed of who is taking care of you Be treated with dignity and respect Have a family member/account executive sales representative of choice and your physician notified of your admission Receive information and actively participate in decisions about your care and treatment Refuse care, treatment and services Decide who may provide your support and speak for you Access zoroastrian and spiritual services Participate in ethical issues [...] of hospital charges and payment methods Patient/patient account executive sales representative responsibilities are to: Provide information about [...] RIGHTS AND RESPONSIBILITIES As a patient at [facility], you have the right to: Receive medical care and be informed of who is taking care of you Be treated with dignity and respect Have a family member/account executive sales representative of choice and your physician notified of your admission Receive information and actively participate in decisions about your care and treatment Refuse care, treatment and services Decide who may provide your support and speak for you Access zoroastrian and spiritual services Participate in ethical issues [...] of hospital charges and payment methods Patient/patient account executive sales representative responsibilities are to: Provide information about [...] Control department if you have any questions. [facility]02-10-2025 Miscellaneous Notes* Pre-Procedure Instructions - Paris Robertson RN - 12/22/2024 8:30 AM EST Your surgery/procedure is scheduled at [facility] on 12/25/2024 at 1315 Arrival Time 1115 [facility] Address: [address] [place] [address] Park in P1 Parking lot located on [facility]. Report to the Entrance B. Check in at the information desk the surgery. The waiting room located on the second floor. If you have any questions prior to surgery, please call Pre-Admission Clinic at [phone] between 7:30 am and 4:30 pm Sunday through Sunday. If you have questions the morning of surgery, please call the Pre-op Department at [phone]. Notify your SURGEON if you develop any [...] specifically instructed by your surgeon to hold. STOPtaking all herbal products/teas one week prior to [...] piercings ,hair extensions that contain metal, nail palestinian, make-up, and contact lens. You may brush [...] items and leave them in the car untilyou are taken to your room after surgery. [...] following some types of surgeries involving the eyes,ears, sinuses and throat. Always follow your doctor's [...] RIGHTS AND RESPONSIBILITIES As a patient at [facility], you have the right to: Receive medical care and be informed of who is taking care of you Be treated with dignity and respect Have a family member/account executive sales representative of choice and your physician notified of your admission Receive information and actively participate in decisions about your care and treatment Refuse care, treatment and services Decide who may provide your support and speak for you Access zoroastrian and spiritual services Participate in ethical issues [...] of hospital charges and payment methods Patient/patient account executive sales representative responsibilities are to: Provide information about [...] RIGHTS AND RESPONSIBILITIES As a patient at [facility], you have the right to: Receive medical care and be informed of who is taking care of you Be treated with dignity and respect Have a family member/account executive sales representative of choice and your physician notified of your admission Receive information and actively participate in decisions about your care and treatment Refuse care, treatment and services Decide who may provide your support and speak for you Access zoroastrian and spiritual services Participate in ethical issues [...] of hospital charges and payment methods Patient/patient account executive sales representative responsibilities are to: Provide information about [...] you have any questions. documented in this encounterMercy Health Kings Mills Hospital02-04-2025 Miscellaneous Notes* Telephone Encounter - Franca Regalado RN - 12/16/2024 9:44 AM EST Patient currently scheduled for 01/06 for ION/ [...] okay with alternative lesion biopsy as felt alllesions related. Suspicious for breast . Call to patient. Patient identified self on vm. Left message regarding call and requested call back. Spot being held on 12/25/24 at 115 pm. * Telephone Encounter - Franca Regalado RN - 12/16/2024 9:44 AM EST Notification from Dr Thapa. The patient would like to have done at offered time. She is currently at [facility] and requests our office to call her later with the details. * Telephone Encounter - Franca Regalado RN - 12/16/2024 9:44 AM EST Spoke with patient. Instructed to hold aspirin on 12/20/24 for 5 days. Nothing to eat or drink after midnight. Arrive to [facility] by 1115 am for a procedure times of 115 pm. documented in this encounterMercy HospitalSportsBlog.com02-04-2025 Telephone encounter Note* Telephone Encounter - Franca Regalado RN - 12/16/2024 9:44 AM EST Patient currently scheduled for 01/06 for ION/ [...] okay with alternative lesion biopsy as felt alllesions related. Suspicious for breast . Call to patient. Patient identified self on vm. Left message regarding call and requested call back. Spot being held on 12/25/24 at 115 pm. [employer] Work Phone: 1(561) 311-440902-04-2025 Telephone encounter Note* Telephone Encounter - Franca Regalado RN - 12/16/2024 9:44 AM EST Notification from Dr Thapa. The patient would like to have done at offered time. She is currently at [facility] and requests our office to call her later with the details. [employer]02-04-2025 Telephone encounter Note* Telephone Encounter - Franca Regalado RN - 12/16/2024 9:44 AM EST Spoke with patient. Instructed to hold aspirin on 12/20/24 for 5 days. Nothing to eat or drink after midnight. Arrive to [facility] by 1115 am for a procedure times of 115 pm. [employer]01-30-2025 Miscellaneous Notes* Telephone Encounter - Renae Torres RN - 12/11/2024 3:02 PM EST Chief Operator Synthesis attempted to contact patient. No answer. Left message for patient to contact office regarding procedure date and time. Left office phone number for reference. Patient will need to be informed of the following: Ion Navigational procedure w/EBUS under general anesthesia (Dx: Lung nodule) is scheduled for Dec at 1:00 pm. Patient to arrive to [facility] at 11:00 am. Patient to report to [...] Tylenol only. Make arrangements for a driver education road instructor to bring you to and from the hospital on the day of the procedure Bring your ID, current medication list and insurance cards to the hospital Call our office if you become ill such as a cold, cough, fever, sore throat or vomiting on the day before or day of the maintenance controller to update Dr Thapa Case #[id number] * Telephone Encounter - Renae Torres RN - 12/11/2024 3:02 PM EST Patient returned call. Chief Operator Synthesis informed patient of the following: Ion Navigational procedure w/EBUS under general anesthesia (Dx: Lung nodule) is scheduled for Dec at 1:00 pm. Patient to arrive to [facility] at 11:00 am. Patient to report to [...] Tylenol only. Make arrangements for a driver education road instructor to bring you to and from the hospital on the day of the procedure Bring your ID, current medication list and insurance cards to the hospital Call our office if you become ill such as a cold, cough, fever, sore throat or vomiting on the day before or day of the procedure Patient agreeable to above information and verbalized understanding Chief Operator Synthesis to update Dr Thapa Case #[id number] * Telephone Encounter - Renae Torres RN - 12/11/2024 3:02 PM EST Patient completed labs today but does not stop aspirin until 12-30-24. Do you want her to repeat them? * Telephone Encounter - María Thapa DO - 12/11/2024 3:02 PM EST No that is fine * Telephone Encounter - Franca Regalado RN - 12/11/2024 3:02 PM EST Procedure moved up to 12/25/24 at 115 pm with TSA documented in this encounterMercy Health Kings Mills Hospital01-30-2025 Telephone encounter Note* Telephone Encounter - Renae Torres RN - 12/11/2024 3:02 PM EST Chief Operator Synthesis attempted to contact patient. No answer. Left message for patient to contact office regarding procedure date and time. Left office phone number for reference. Patient will need to be informed of the following: Ion Navigational procedure w/EBUS under general anesthesia (Dx: Lung nodule) is scheduled for Dec at 1:00 pm. Patient to arrive to [facility] at 11:00 am. Patient to report to [...] Tylenol only. Make arrangements for a driver education road instructor to bring you to and from the hospital on the day of the procedure Bring your ID, current medication list and insurance cards to the hospital Call our office if you become ill such as a cold, cough, fever, sore throat or vomiting on the day before or day of the maintenance controller to update Dr Thapa Case #[id number] [facility] CenterBillMyParents, Inc.[id number] Telephone encounter Note* Telephone Encounter - Renae Torres RN - 12/11/2024 3:02 PM EST Patient returned call. Chief Operator Synthesis informed patient of the following: Ion Navigational procedure w/EBUS under general anesthesia (Dx: Lung nodule) is scheduled for Dec at 1:00 pm. Patient to arrive to [facility] at 11:00 am. Patient to report to [...] Tylenol only. Make arrangements for a driver education road instructor to bring you to and from the hospital on the day of the procedure Bring your ID, current medication list and insurance cards to the hospital Call our office if you become ill such as a cold, cough, fever, sore throat or vomiting on the day before or day of the procedure Patient agreeable to above information and verbalized understanding Chief Operator Synthesis to update Dr Thapa Case #[id number] [employer]01-30-2025 Telephone encounter Note* Telephone Encounter - Renae Torres RN - 12/11/2024 3:02 PM EST Patient completed labs today but does not stop aspirin until 12-30-24. Do you want her to repeat them? [employer]01-30-2025 Telephone encounter Note* Telephone Encounter - María Thapa DO - 12/11/2024 3:02 PM EST No that is fine [employer]01-30-2025 Telephone encounter Note* Telephone Encounter - Franca Regalado RN - 12/11/2024 3:02 PM EST Procedure moved up to 12/25/24 at 115 pm with TSA [employer] Work Phone: 1([phone]) 900-614701-30-2025 History of Present illness Narrative* María Thapa, DO - 12/11/2024 12:00 PM EST Images from the original note were not included. 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 She is a never smoker. Her father suffered from bone cancer and prostate cancer. She denies any personal or family history of rheumatologic conditions however she did follow with rheumatology regularly forjoint injections at [facility]. She is mostly bothered by this dry [...] mostly in her upper airway upper chest. Dustyly had heart catheterization earlier this week which [...] PET avid pulmonary nodule is along the pericardiummedially on the CT imaging and therefore of [...] Past Medical History: Diagnosis Date Angina pectoris ([facility]) Arthralgia of multiple joints Arthritis Bicipital tendinitis Breast cancer ([facility]) 2024 Cancer ([facility]) breast x2 Carpal tunnel syndrome Dizziness vertigo Fibromyalgia, primary GERD (gastroesophageal reflux disease) Headache Heart burn Hyperlipidemia Hypertension Lumbosacral spinal stenosis Meningioma ([facility]) 07/2019 STABLE Neuropathy Obesity Osteoarthritis Positive SATYA (antinuclear antibody) Radiculopathy of lumbosacral region Trochanteric bursitis of right hip Varicella Visual impairment glasses Past Surgical History: Procedure Laterality Date ADENOIDECTOMY APPENDECTOMY 1960 BREAST BIOPSY 1997 BREAST LUMPECTOMY Bilateral 1993 Right; 1996 Left BUNIONECTOMY CARDIAC CATHETERIZATION 05/2019 CARDIAC CATHETERIZATION 1997 [facility] CARDIAC CATHETERIZATION 12/10/2024 COLONOSCOPY 06/08/2014 Dr. Robles COLONOSCOPY 11/09/2008 Dr. Robles COLONOSCOPY N/A 07/26/2020 Performed by Maverick Robles MD at [facility] EGD N/A 07/26/2020 Performed by Maverick Robles MD at [facility] FOOT SURGERY 09/2019 HYSTERECTOMY JOINT REPLACEMENT Left KNEE ARTHROSCOPY 2016 LYMPH NODE BIOPSY 1992 &1995 MASTECTOMY Bilateral MOUTH SURGERY REPLACEMENT TOTAL JOINT KNEE Left 01/15/2018 Performed by Jr Pepe Jeffries DO at [facility] TARSAL TUNNEL RELEASE TONSILLECTOMY 194 Lyrica [pregabalin], Penicillins, and Phenergan [promethazine] Prior to Admission medications Medication Sig Start Date End Date Taking? Authorizing Provider acetaminophen (TYLENOL) 325 mg tablet Take 2 tablets (650 mg total) by mouth every 6 (six) hours asneeded for pain. Yes Not In System Ref Prov amitriptyline (ELAVIL) 10 mg tablet Take 2 tablets (20 mg total) by mouth nightly. Yes Not In System Ref Prov atorvastatin (LIPITOR) 20 mg tablet Take 1 tablet (20 mg total) by mouth nightly. Yes Not In SystemRef Prov cholecalciferol, vitamin D3, 2,000 units capsule Take 1 capsule (2,000 Units total) by mouth in themorning. Yes Not In System Ref Prov diphenhydrAMINE-acetaminophen [...] total) by mouth 3 (three) times a day.08/23/22 Yes Vicenta Fernandes MD lisinopril (PRINIVIL,ZESTRIL) 10 mg tablet Take 1 tablet (10 mg total) by mouth in the morning. YesNot In System Ref Prov meclizine (ANTIVERT) 25 [...] Results: None Radiology Dr. María Thapa DO. [facility] Office: [phone] documented in this encounterUniversity [facility] CenterTo[facility]-28-2025 NotePatient needs cardiac clearance before she undergoes lung biopsy. The [...] be at low risk for perioperative cardiac events.[facility] 12-09-2024 NotePatient: Margy Oakes Procedure Information Date/Time: 12/09/24 1030 Procedure: Coronary angiography Location: [facility] / [facility] (Cath) Providers: Kimmy Rosado MD Clinical information reviewed: Allergies Meds Physical Exam Airway Mallampati: III Cardiovascular Dental Pulmonary Abdominal Anesthesia Plan ASA 3 other (Conscious sedation) intravenous induction Anesthetic plan and risks discussed with patient. Use of blood products discussed with patient who consented to blood products. Plan discussed with attending and fellow. Additional Equipment [facility]sHol[facility] Note My[facility]anda Office Cardiology Clinic Note Reason [...] has a past medical history of Cancer ([facility]), Coronary artery disease, Hyperlipidemia, and Hypertension. Surgical [...] EKG today 11/10/2024 s (more content not included)...[facility]12-13-2024 NoteXR CHEST 2 VWS History: Shortness of breath [...] by Norberto Corrigan MD on 10/24/2024 4:16 [facility] 08-27-2024 History of Present illness Narrative* Lavinia Herring NP - 08/27/2024 10:15 AM EDTAssociated Order(s): L Inj/Asp: R knee Post-Procedure Diagnose(s): Primary osteoarthritis of right knee Images from the original note were not included. NAME: Margy Oakes : 1945 HISTORY OF PRESENT ILLNESS: Margy Oakes is an 79 y.o. @ female. (EST PT) RT KNEE PAIN, 2 YRS (2021), CONTINUES GETTING WORSE. WENT TO [facility] ER 07/19 AFTER A FALL - HASHAD PAIN SINCE LAST DEPO INJ /5 XRAY TODAY EPIC 08/27/24 XRAY [facility] 07/09/23 DEPO INJECTION 04/16/24 PHYSICAL THERAPY @ [...] COLONOSCOPY 2019 FOOT SURGERY 2009 FOOT SURGERY [address] [facility] MOUTH SURGERY TONSILLECTOMY 194 TOTAL KNEE ARTHROPLASTY Left 2017 Dr Jeffries [...] knee osteoarthritis with valgus alignment. Lavinia Herring MOCK UP MAKER-RECORDS SUPERVISOR L Inj/Asp: R knee on 08/27/2024 12:21 [...] this well. Neurovasc intact s/p injection. Post injectioncare instructions discussed. She will follow up as needed. Questions answered in laymen terms at the bedside. The diagnosis, home exercise plan and any ongoing restrictions/ recommendations reviewed. If unable to be reached in office, I recommend evaluation at nearest Emergency Room if any symptoms worsened or new symptoms develop for requiring urgent evaluation. Lavinia Herring APRN-RECORDS SUPERVISOR documented in this encounterWashington County Memorial [id number] History of Present illness Narrative* Vicenta Fernandes MD - 01/11/2024 9:40 AM EST Images from the original note were not included. [facility] [address] [place] [address], [address] [place] [address] * FOLLOW-UP NOTE ? 01/11/2024 Patient: Margy Oakes 1945 [id number] Physician: Vicenta Fernandes MD, FACS CHIEF COMPLAINT [...] record of the patient encounter. Inadvertent computerized tipple mechanic errors related to syntax, spelling, homophones, and/or inaudibility may be present. documented in this [facility]03-01-2024 Instructions* Patient Instructions* Katelyn Stevens CMA - 01/11/2024 9:40 AM EST Patient was seen today by Dr. Fernandes documented in this [facility]12-29-2023 Miscellaneous Notes* Telephone Encounter - Estrella Brown LPN - 11/09/2023 11:38 AM EST Margy calls into the office stating that she look all over for her MRI of the lumbar that she had done previously. Patient stated that Dr. Fernandes told her if she could not find the old MRI to call theoffice so an order can be placed for a new MRI. Margy was informed that a order will be placed. documented in this [facility]12-29-2023 Telephone encounter Note* Telephone Encounter - Estrella Brown LPN - 11/09/2023 11:38 AM EST Margy calls into the office stating that she look all over for her MRI of the lumbar that she had done previously. Patient stated that Dr. Fernandes told her if she could not find the old MRI to call theoffice so an order can be placed for a new MRI. Margy was informed that a order will be placed. [facility]07-20-2022 NotePROCEDURE: XR FOOT RT MIN 3 VIEWS HISTORY: Pain in [...] Electronically authenticated by: NORBERTO IVAN Date: 2022-05-31 21:57[facility]06-21-2022 NoteCONSULTATION PROCEDURE DATE: 05/02/2022 PREOPERATIVE DIAGNOSIS: Anterior tibial [...] will be followed up in the office. [facility] Signed and Approved by: DR BERNABE PRATHER . 05/09/2022 09:22:00[facility]06-21-2022 NoteCONSULTATION CONSULTATION DATE: 05/02/2022 CHIEF COMPLAINT: Right leg [...] we need to follow through with the client service supervisor's recommendation. Subsequent to the visit today, the patient will be followed up for return visit in 2-3 months. The patient understands and would like to proceed. CC: Lucia Esteban M.D. [facility] Signed and Approved by: DR BERNABE PRATHER . 05/09/2022 09:22:00[facility]06-07-2022 NoteCONSULTATION PROCEDURE DATE: 04/18/2022 PREOPERATIVE DIAGNOSIS: 1. Right [...] No intervention was performed on her left. [facility] Signed and Approved by: DR BERNABE PRATHER . 04/25/2022 08:30:00[facility]06-07-2022 NoteCONSULTATION CONSULTATION DATE: 04/18/2022 CHIEF COMPLAINT: Right foot [...] like to proceed. CC: Lucia Esteban M.D. [facility] Signed and Approved by: DR BERNABE PRATHER . 04/25/2022 08:30:00[facility]05-24-2022 NotePROCEDURE: XR FOOT RT MIN 3 VIEWS, XR ANKLE RT MIN [...] Electronically authenticated by: NORBERTO IVAN Date: 2022-04-04 09:40[facility]05-24-2022 NotePROCEDURE: XR FOOT RT MIN 3 VIEWS, XR ANKLE RT MIN [...] Electronically authenticated by: NORBERTO IVAN Date: 2022-04-04 09:40[facility]05-17-2022 NoteCONSULTATION PROCEDURE DATE: 03/28/2022 PREOPERATIVE DIAGNOSIS: Bilateral lower [...] her legs were notable to the patient. [facility] Signed and Approved by: DR BERNABE PRATHER . 04/04/2022 12:22:00[facility]05-17-2022 NoteCONSULTATION CONSULTATION DATE: 03/28/2022 CHIEF COMPLAINT: Bilateral leg [...] like to proceed. CC: Lucia Esteban M.D. [facility] Signed and Approved by: DR BERNABE PRATHER . 04/04/2022 12:22:00[facility]04-19-2022 NoteCONSULTATION Consultation Date:02/28/2022 PAIN MANAGEMENT CONSULTATION CHIEF COMPLAINT: [...] in one month. CC: Lucia Esteban M.D. [facility] Signed and Approved by: DR BERNABE PRATHER . 03/07/2022 12:16:00[facility]04-05-2022 NoteCONSULTATION PAIN MANAGEMENT CONSULTATION CHIEF COMPLAINT: Bilateral leg pain. HISTORY OF PRESENT ILLNESS: This is a very pleasant, 77-year-old female, who was referred to us by physician digital assistant, Loly Fox. The patient's family physician [...] proceed. CC: Lucia Esteban M.D. [facility] Signed and Approved by: DR BERNABE PRATHER . 02/21/2022 11:53:00[facility]04-05-2022 NoteCONSULTATION PROCEDURE NOTE PREOPERATIVE DIAGNOSIS: Spasming along the [...] up in the office in two weeks. IF Signed and Approved by: DR BERNABE PRATHER . 02/21/2022 11:53:00[facility]* Diagnosis Primary osteoarthritis of right knee- Primary Right knee pain, unspecified chronicity documented in this encounter [facility] Healthcare[facility]* Diagnosis Pulmonary nodules/lesions, multiple- Primary Other diseases of lung, not elsewhere classified Pulmonary nodule Other diseases of lung, not elsewhere classified documented in this encounter [facility]* Diagnosis Preop testing- Primary Unspecified pre-operative examination Pulmonary nodule Other diseases of lung, not elsewhere classified SOB (shortness of breath) Shortness of breath documented in this encounter [facility]* Diagnosis Neuropathy- Primary Mononeuritis of unspecified site documented in this encounter [facility]* Diagnosis Neuropathy- Primary Mononeuritis of unspecified site documented in this encounter [facility]* Diagnosis Acute pain of right knee- Primary Arthritis of right knee documented in this encounter [facility]* Diagnosis Moderate persistent asthma without complication- Primary documented in this encounter [facility]* Diagnosis Pulmonary nodules/lesions, multiple- Primary Other diseases of lung, not elsewhere classified Dyspnea on exertion Other dyspnea and respiratory abnormality Moderate persistent asthma without complication [facility] Diagnosis Onset Date Resolution Status Admit Date Acute kidney injury superimp osed on CKD acute April 16, 2025 2 :50pm CKD (chronic kidney disease) stage 3, GFR 30-59 ml/min acute April 16 2:50pm Hyperlipidemia acute April 16, 2025 2:50pm Hypertensive chronic kidney disease with stage 1 through stage 4 chronic ki acute April 16, 2025 2 :50pm [facility] Work Phone: Evaluation noteNo assessment information available [facility] Work Phone: InstructionsNot on filedocumented in this encounter [facility] [...] [facility] Summary Purpose Family History Relationship Condition Age at Onset Recorded Date/T charbel father Malignant neoplasm Unknown mother Malignant neoplasm Unknown Advance Directives Advance Directive Response Recorded Date/ Time Advance Directives No April 16 2:46pm Reason for Referral Specialty Diagnoses / Procedures Referred By Contac t Referred To Contact Radiology Diagnoses Neuropathy Procedures MR lumbar spine without contrast Vicenat Fernandes MD [address] [place] [address] [address] [place] [address] Referral ID Status Reason Start Date Expiration Date V isits Requested Visits Authorized [id number] Pending Review 11/09/2023 11/08/2024 1 1 Chief Complaint and Reason for Visit Chief Complaint Admit Date Unknown March 28, 2025 5:58p m Unknown April 14, 2025 11:43 am ADELITA April 16, 2025 2:50p m Reason for Visit Admit Date Acute kidney injury superimposed on CKD April 16, 2025 2:50pm CKD (chronic kidney disease) stage 3, GF R 30-59 ml/min April 16, 2025 2:50pm Hyperlipidemia April 16, 2025 2:50p m Hypertensive chronic kidney disease with stage 1 through stage 4 chronic ki April 16, 2025 2:50pm Chief Complaint Admit Date Unknown March 28, 2025 5:58p m Unknown April 14, 2025 11:43 am ADELITA April 16, 2025 2:50p m Unknown April 16, 2025 4:11p m Reason for Visit Admit Date Acute kidney injury superimposed on CKD April 16, 2025 2:50pm Anemia of chronic disease April 16, 2025 2:50pm Breast cancer April 16, 2025 2:50p m CKD (chronic kidney disease) stage 3, GF R 30-59 ml/min April 16, 2025 2:50pm Hyperlipidemia April 16, 2025 2:50p m Hypertensive chronic kidney disease with stage 1 through stage 4 chronic ki April 16, 2025 2:50pm Chief Complaint Admit Date Unknown March 28, 2025 5:58p m Unknown April 14, 2025 11:43 am Additional Source Comments INFORMATION SOURCE (unrecogn ized section and content) DATE CREATED AUTHOR 07/11/2019 [facility] DATE CREATED AUTHOR AUTHOR'S ORGANIZ ATION 06/15/2022 [facility] DATE CREATED AUTHOR AUTHOR'S ORGANIZ ATION 11/14/2024 [facility] DATE CREATED AUTHOR AUTHOR'S ORGANIZ ATION 12/14/2024 [facility] DATE CREATED AUTHOR AUTHOR'S ORGANIZ ATION 02/07/2025 [facility] EPIC DATE CREATED AUTHOR AUTHOR'S ORGANIZ ATION 02/21/2025 [facility] DATE CREATED AUTHOR AUTHOR'S ORGANIZ ATION 03/21/2025 [facility] DATE CREATED AUTHOR AUTHOR'S ORGANIZ ATION 03/31/2025 [facility] DATE CREATED AUTHOR AUTHOR'S ORGANIZ ATION 04/19/2025 [facility] Source Comments (unrecognize d section and content) In the event this informatio n is protected by the Federal Confidentiality of Alcohol and Drug Abuse Patient Records regulations: The Federal rules restrict any use of the information to criminally investigate or prosecute any alcohol or drug abuse patient.[facility] Care Teams (unrecognized sec tion and content) Safe Expert Relationship Specialty Start Date End Date Lucia Esteban MD [address] [place] [address] PCP - External PCP Family Medicine 04/21/23 Lucia Esteban MD [address] [address] PCP - General Family Medicine 04/16/24 Safe Expert Relationship Specialty Start Date End Date Lucia Esteban MD [address] [address] PCP - External PCP Family Medicine 04/21/23 Lucia Esteban MD [address] [id number] PCP - General Family Medicine 04/16/24 Safe Expert Relationship Specialty Start Date End Date Lucia Esteban MD [address] [address] PCP - General 05/04/15 Safe Expert Relationship Specialty Start Date End Date Lucia Esteban MD [address] [address]689 PCP - General 05/04/15 Safe Expert Relationship Specialty Start Date End Date Lucia Esteban MD [address] [address] PCP - General 05/04/15 Safe Expert Relationship Specialty Start Date End Date Lucia Esteban MD [address] [address] PCP - General 05/04/15 Safe Expert Relationship Specialty Start Date End Date Lucia Esteban MD [address] [address] PCP - General 05/04/15 Safe Expert Relationship Specialty Start Date End Date Lucia Esteban MD [address] [address] PCP - General 05/04/15 Safe Expert Relationship Specialty Start Date End Date Lucia Esteban MD [address] [address] PCP - General 05/04/15 Safe Expert Relationship Specialty Start Date End Date Lucia Esteban MD [address] [address] PCP - External PCP Family Medicine 04/21/23 Lucia Esteban MD [address] [address] PCP - General Family Medicine 04/16/24 Safe Expert Relationship Specialty Start Date End Date Lucia Esteban MD [address] [address] PCP - External PCP Family Medicine 04/21/23 Lucia Esteban MD [address] [address] PCP - General Family Medicine 04/16/24 Safe Expert Relationship Specialty Start Date End Date Lucia Esteban MD [address] [address] PCP - General 05/04/15 Safe Expert Relationship Specialty Start Date End Date Lucia Esteban MD [address] [address] PCP - General 05/04/15 Safe Expert Relationship Specialty Start Date End Date Lucia Esteban MD [address] [address] PCP - General 05/04/15 Safe Expert Relationship Specialty Start Date End Date Lucia Esteban MD [address] [address] PCP - General 05/04/15 Safe Expert Relationship Specialty Start Date End Date Lucia Esteban MD [address] [address] PCP - External PCP Family Medicine 04/21/23 Lucia Esteban MD [address] [address] PCP - General Family Medicine 04/16/24 Safe Expert Relationship Specialty Start Date End Date Lucia Esteban MD [address] [place] [address] PCP - External PCP Family Medicine 04/21/23 Lucia Esteban MD [address] [place] [address] PCP - General Family Medicine 04/16/24 Team Status: Active Member Role Status Dates Lucia Esteban MD Primary Care Provider Active Team Status: Inactive Member Role Status Dates Stefani Quezada MD Attending Provider Active Sta rt: March 28, 2025 End: March 28, 2025 Team Status: Inactive Member Role Status Dates Natasha Vazquez MD Attending Provider Active St art: April 14, 2025 End: April 14, 2025 Team Status: Inactive Member Role Status Dates Shyam Crowell MD Attending Provider Active Start : April 16, 2025 End: April 16, 2025 Lucia Esteban MD Primary Care Provider Active Start: April 16, 2025 End: April 16, 2025 Team Status: Inactive Member Role Status Dates Shyam Crowell MD Attending Provider Active Start : April 16, 2025 End: April 16, 2025 Safe Expert Relationship Specialty Start Date End Date Lucia Esteban MD [address] [place] [address] PCP - General 05/04/15 Reason for Visit (unrecogniz ed section and content) Reason Comments Pain Reason Comments New Patient CT: 11/14/2024PET CT : 12/02/2024 Lung Nodule Specialty Diagnoses / Procedures Referred By Contac t Referred To Contact Pulmonary Medicine Diagnoses Pulmonary nodule Natasha Vazquez MD [address] [place] [address] [address] [place] [address] Phone: tel: fax: [facility] [address] [address] Phone: tel: fax: Referral ID Status Reason Start Date Expiration Date Visits Requested Visits Authorized [id number] Pending Review Specialty Services Required 12/04/2024 12/04/2025 1 1 Reason Comments Med Refill Reason Onset Date Comments MRI 11/09/2023 Reason Comments Follow-up Ep review mri Reason Comments Follow-up Pulmonary nodules/le sions, multipleCXR: 12/25/2024 Goals (unrecognized section and content) Goals may be documented in a n alternate section FOR RECORDS PERTAINING TO PATIENTS WHO ARE [...] BE BASED ON THE PRIMARY CLINICAL RECORDS. [employer] provides no warranty or guarantee of the accuracy or completeness of information in this document.
[2025-05-05 11:23] LABS: Chol HDL Ratio 2.3; Cholesterol 221 mg/dL (<=200); HDL Cholesterol 97 mg/dL (40-60); Triglycerides 121 mg/dL (<=150); VLDL CHOLESTEROL 24.2 mg/dL
== END 2025-05-05 09:53 | disposition home or self-care (01) ==
PROVIDERS: PCP Family Medicine; Visit Provider Internal Medicine Cardiovascular Disease
DX: E78.2 Mixed hyperlipidemia (principal)
CPT/HCPCS: 80061

== ENCOUNTER 2025-06-09 07:32 | Outpatient (RCR) | payer MEDICARE, SELFPAY ==
[2025-05-26 10:16] LABS: Hematocrit 30.5 % (36.0-48.0); Hemoglobin 9.9 g/dL (12.0-16.0); Immature Granulocytes Abs Auto 0.01 10^3/uL (0.00-0.03); Immature Granulocytes Pct Auto 0.2 % (0.0-0.5); Lymphocytes Absolute Auto 1.2 10^3/uL (1.2-3.8); Mean Corpuscular HGB Conc 32.5 g/dL (29.9-35.2); Mean Corpuscular Hemoglobin 35.1 pg (26.7-34.0); Mean Corpuscular Volume 108.2 fL (81.0-99.0); Platelet Count 263 10^3/uL (150-450); Red Blood Count 2.82 10^6/uL (4.20-5.40); White Blood Count 5.3 10^3/uL (4.0-11.0)
[2025-05-26 10:35] LABS: Alanine Aminotransferase 24 U/L (14-59); Albumin Globulin Ratio 1.1; Albumin Level 3.5 g/dL (3.4-5.0); Alkaline Phosphatase 79 U/L (46-116); Anion Gap 13.3; Aspartate Amino Transferase 16 U/L (15-37); Blood Urea Nitrogen 23.0 mg/dL (7.0-18.0); Calcium 9.3 mg/dL (8.5-10.1); Carbon Dioxide 28.7 mmol/L (21.0-32.0); Chloride 101 mmol/L (98-107); Estimated GFR (African America 32 (>=60 mL/min/1.73m^2); Estimated GFR (Non-African Ame 26 (>=60 mL/min/1.73m^2); Globulin 3.3 g/dL; Glucose 101 mg/dL (74-106); Potassium 5.0 mmol/L (3.5-5.1); Sodium 138 mmol/L (136-145); Total Protein 6.8 g/dL (6.4-8.2)
[2025-05-26] MEDS: EPOETIN ALFA 20,000 UNIT/2 ML VIAL 40000 UNIT SUBQ (11:29)
[2025-06-05 10:21] LABS: Anion Gap 12.2; Blood Urea Nitrogen 30.0 mg/dL (7.0-18.0); Calcium 9.3 mg/dL (8.5-10.1); Carbon Dioxide 32.1 mmol/L (21.0-32.0); Chloride 95 mmol/L (98-107); Estimated GFR (African America 33 (>=60 mL/min/1.73m^2); Estimated GFR (Non-African Ame 27 (>=60 mL/min/1.73m^2); Glucose 96 mg/dL (74-106); Potassium 4.3 mmol/L (3.5-5.1); Sodium 135 mmol/L (136-145)
[2025-06-09 10:25] VITALS: BP 111/67; PULSE 51; TEMP 36.8; O2SAT 92
[2025-06-09 10:40] LABS: Hematocrit 33.7 % (36.0-48.0); Hemoglobin 10.8 g/dL (12.0-16.0); Immature Granulocytes Abs Auto 0.05 10^3/uL (0.00-0.03); Immature Granulocytes Pct Auto 0.7 % (0.0-0.5); Lymphocytes Absolute Auto 1.9 10^3/uL (1.2-3.8); Mean Corpuscular HGB Conc 32.0 g/dL (29.9-35.2); Mean Corpuscular Hemoglobin 34.0 pg (26.7-34.0); Platelet Count 183 10^3/uL (150-450); Red Blood Count 3.18 10^6/uL (4.20-5.40); White Blood Count 6.7 10^3/uL (4.0-11.0)
[2025-06-09 10:52] LABS: Alanine Aminotransferase 21 U/L (14-59); Albumin Globulin Ratio 1.1; Albumin Level 3.6 g/dL (3.4-5.0); Alkaline Phosphatase 80 U/L (46-116); Anion Gap 12.5; Aspartate Amino Transferase 12 U/L (15-37); Blood Urea Nitrogen 29.0 mg/dL (7.0-18.0); Calcium 9.4 mg/dL (8.5-10.1); Carbon Dioxide 30.4 mmol/L (21.0-32.0); Chloride 97 mmol/L (98-107); Estimated GFR (African America 32 (>=60 mL/min/1.73m^2); Estimated GFR (Non-African Ame 26 (>=60 mL/min/1.73m^2); Globulin 3.4 g/dL; Glucose 92 mg/dL (74-106); Potassium 4.9 mmol/L (3.5-5.1); Sodium 135 mmol/L (136-145); Total Protein 7.0 g/dL (6.4-8.2)
[2025-06-09 10:55] LABS: Mean Corpuscular Volume 106.0 fL (81.0-99.0)
== END 2025-06-11 23:59 | disposition home or self-care (01) ==
LOC: HEMC 07:32
PROVIDERS: PCP Family Medicine; Visit Provider Internal Medicine Hematology & Oncology
DX: C78.01 Secondary malignant neoplasm of right lung (principal); D64.81 Anemia due to antineoplastic chemotherapy; Z85.3 Personal history of malignant neoplasm of breast; Z90.13 Acquired absence of bilateral breasts and nipples; R07.89 Other chest pain; R06.02 Shortness of breath
CPT/HCPCS: 36415; 80048; 80053; 85025; 96372; G0463; J0885

== ENCOUNTER 2025-06-30 11:00 | Outpatient (RCR) | payer MEDICARE, SELFPAY ==
[2025-06-16 10:41] LABS: Hematocrit 32.7 % (36.0-48.0); Hemoglobin 10.8 g/dL (12.0-16.0); Immature Granulocytes Abs Auto 0.03 10^3/uL (0.00-0.03); Immature Granulocytes Pct Auto 0.6 % (0.0-0.5); Lymphocytes Absolute Auto 1.4 10^3/uL (1.2-3.8); Mean Corpuscular HGB Conc 33.0 g/dL (29.9-35.2); Mean Corpuscular Hemoglobin 34.5 pg (26.7-34.0); Mean Corpuscular Volume 104.5 fL (81.0-99.0); Platelet Count 216 10^3/uL (150-450); Red Blood Count 3.13 10^6/uL (4.20-5.40); White Blood Count 5.0 10^3/uL (4.0-11.0)
[2025-06-16 10:53] LABS: Alanine Aminotransferase 33 U/L (14-59); Albumin Globulin Ratio 1.0; Albumin Level 3.7 g/dL (3.4-5.0); Alkaline Phosphatase 120 U/L (46-116); Anion Gap 10.5; Aspartate Amino Transferase 19 U/L (15-37); Blood Urea Nitrogen 22.0 mg/dL (7.0-18.0); Calcium 9.4 mg/dL (8.5-10.1); Carbon Dioxide 30.1 mmol/L (21.0-32.0); Chloride 95 mmol/L (98-107); Estimated GFR (African America 43 (>=60 mL/min/1.73m^2); Estimated GFR (Non-African Ame 35 (>=60 mL/min/1.73m^2); Globulin 3.7 g/dL; Glucose 104 mg/dL (74-106); Potassium 4.6 mmol/L (3.5-5.1); Sodium 131 mmol/L (136-145); Total Protein 7.4 g/dL (6.4-8.2)
[2025-06-16 12:10] LABS: Magnesium 1.9 mg/dL (1.8-2.4)
[2025-06-16 12:20] LABS: Total Protein Urine Random <6.0 mg/dL (<=11.9)
[2025-06-16 12:59] LABS: Glucose Urine UA NEGATIVE (NEGATIVE)
[2025-06-30 11:25] LABS: Hematocrit 34.7 % (36.0-48.0); Hemoglobin 11.1 g/dL (12.0-16.0); Immature Granulocytes Abs Auto 0.05 10^3/uL (0.00-0.03); Immature Granulocytes Pct Auto 0.9 % (0.0-0.5); Lymphocytes Absolute Auto 1.3 10^3/uL (1.2-3.8); Mean Corpuscular HGB Conc 32.0 g/dL (29.9-35.2); Mean Corpuscular Hemoglobin 33.1 pg (26.7-34.0); Mean Corpuscular Volume 103.6 fL (81.0-99.0); Platelet Count 253 10^3/uL (150-450); Red Blood Count 3.35 10^6/uL (4.20-5.40); White Blood Count 5.4 10^3/uL (4.0-11.0)
[2025-06-30 11:38] LABS: Alanine Aminotransferase 45 U/L (14-59); Albumin Globulin Ratio 1.0; Albumin Level 3.8 g/dL (3.4-5.0); Alkaline Phosphatase 103 U/L (46-116); Anion Gap 10.8; Aspartate Amino Transferase 30 U/L (15-37); Blood Urea Nitrogen 18.0 mg/dL (7.0-18.0); Calcium 8.9 mg/dL (8.5-10.1); Carbon Dioxide 28.3 mmol/L (21.0-32.0); Chloride 103 mmol/L (98-107); Estimated GFR (African America 41 (>=60 mL/min/1.73m^2); Estimated GFR (Non-African Ame 34 (>=60 mL/min/1.73m^2); Globulin 3.7 g/dL; Glucose 120 mg/dL (74-106); Potassium 4.1 mmol/L (3.5-5.1); Sodium 138 mmol/L (136-145); Total Protein 7.5 g/dL (6.4-8.2)
== END 2025-07-12 23:59 | disposition home or self-care (01) ==
LOC: HEMC 11:00
PROVIDERS: PCP Family Medicine; Visit Provider Internal Medicine Hematology & Oncology
DX: C78.01 Secondary malignant neoplasm of right lung (principal); D63.1 Anemia in chronic kidney disease; D64.81 Anemia due to antineoplastic chemotherapy; R91.1 Solitary pulmonary nodule; Z90.13 Acquired absence of bilateral breasts and nipples; I25.10 Atherosclerotic heart disease of native coronary artery without angina pectoris; I10 Essential (primary) hypertension; E78.5 Hyperlipidemia, unspecified; Z90.49 Acquired absence of other specified parts of digestive tract; Z96.659 Presence of unspecified artificial knee joint; Z85.3 Personal history of malignant neoplasm of breast; R07.89 Other chest pain; R06.02 Shortness of breath; N18.9 Chronic kidney disease, unspecified; R82.998 Other abnormal findings in urine
CPT/HCPCS: 36415; 80053; 81003; 82570; 83735; 84156; 85025; 87086; G0463

== ENCOUNTER 2025-08-04 07:41 | Outpatient (RCR) | payer MEDICARE, SELFPAY ==
--- NOTE | 2025-07-14 11:52 | PC.NURSE ---
1120: Pt. to [facility] amb. for ordered blood draw per protocol. Pt. tolerates without c/o.
[2025-07-14 12:04] LABS: Hematocrit 30.6 % (36.0-48.0); Hemoglobin 10.1 g/dL (12.0-16.0); Immature Granulocytes Abs Auto 0.05 10^3/uL (0.00-0.03); Immature Granulocytes Pct Auto 0.9 % (0.0-0.5); Lymphocytes Absolute Auto 1.3 10^3/uL (1.2-3.8); Mean Corpuscular HGB Conc 33.0 g/dL (29.9-35.2); Mean Corpuscular Hemoglobin 33.0 pg (26.7-34.0); Mean Corpuscular Volume 100.0 fL (81.0-99.0); Platelet Count 234 10^3/uL (150-450); Red Blood Count 3.06 10^6/uL (4.20-5.40); White Blood Count 5.5 10^3/uL (4.0-11.0)
[2025-07-14 12:09] LABS: Magnesium 1.5 mg/dL (1.8-2.4)
[2025-07-14 12:14] LABS: Alanine Aminotransferase 22 U/L (14-59); Albumin Globulin Ratio 1.0; Albumin Level 3.6 g/dL (3.4-5.0); Alkaline Phosphatase 84 U/L (46-116); Anion Gap 10.8; Aspartate Amino Transferase 22 U/L (15-37); Blood Urea Nitrogen 19.0 mg/dL (7.0-18.0); Calcium 9.3 mg/dL (8.5-10.1); Carbon Dioxide 29.8 mmol/L (21.0-32.0); Chloride 99 mmol/L (98-107); Estimated GFR (African America 50 (>=60 mL/min/1.73m^2); Estimated GFR (Non-African Ame 41 (>=60 mL/min/1.73m^2); Globulin 3.5 g/dL; Glucose 98 mg/dL (74-106); Potassium 4.6 mmol/L (3.5-5.1); Sodium 135 mmol/L (136-145); Total Protein 7.1 g/dL (6.4-8.2)
[2025-08-04 08:02] LABS: Hematocrit 29.5 % (36.0-48.0); Hemoglobin 9.5 g/dL (12.0-16.0); Immature Granulocytes Abs Auto 0.04 10^3/uL (0.00-0.03); Immature Granulocytes Pct Auto 0.7 % (0.0-0.5); Lymphocytes Absolute Auto 1.6 10^3/uL (1.2-3.8); Mean Corpuscular HGB Conc 32.2 g/dL (29.9-35.2); Mean Corpuscular Hemoglobin 32.5 pg (26.7-34.0); Mean Corpuscular Volume 101.0 fL (81.0-99.0); Platelet Count 211 10^3/uL (150-450); Red Blood Count 2.92 10^6/uL (4.20-5.40); White Blood Count 5.7 10^3/uL (4.0-11.0)
[2025-08-04 08:17] LABS: Iron 67.0 ug/dL (50.0-170.0); Percent Iron Saturation 24.5 %; Total Iron Binding Capacity 273.0 ug/dL (250.0-450.0)
[2025-08-04 08:20] LABS: Alanine Aminotransferase 31 U/L (14-59); Albumin Globulin Ratio 1.1; Albumin Level 3.7 g/dL (3.4-5.0); Alkaline Phosphatase 93 U/L (46-116); Anion Gap 13.1; Aspartate Amino Transferase 20 U/L (15-37); Blood Urea Nitrogen 20.0 mg/dL (7.0-18.0); Calcium 8.9 mg/dL (8.5-10.1); Carbon Dioxide 28.0 mmol/L (21.0-32.0); Chloride 100 mmol/L (98-107); Estimated GFR (African America 44 (>=60 mL/min/1.73m^2); Estimated GFR (Non-African Ame 37 (>=60 mL/min/1.73m^2); Globulin 3.4 g/dL; Glucose 118 mg/dL (74-106); Potassium 5.1 mmol/L (3.5-5.1); Sodium 136 mmol/L (136-145); Total Protein 7.1 g/dL (6.4-8.2)
[2025-08-04 08:40] VITALS: BP 133/54; PULSE 57; TEMP 36.6; O2SAT 96
[2025-08-04] MEDS: EPOETIN ALFA 20,000 UNIT/2 ML VIAL 40000 UNIT SUBQ (08:44)
[2025-08-04 13:50] LABS: Ferritin 108.0 ng/mL (8.0-252.0)
== END 2025-08-11 23:59 | disposition home or self-care (01) ==
LOC: HEMC 07:41
PROVIDERS: PCP Family Medicine; Visit Provider Internal Medicine Hematology & Oncology
DX: C78.01 Secondary malignant neoplasm of right lung (principal); D64.81 Anemia due to antineoplastic chemotherapy; Z90.13 Acquired absence of bilateral breasts and nipples; Z85.3 Personal history of malignant neoplasm of breast; R07.89 Other chest pain; R06.02 Shortness of breath
CPT/HCPCS: 36415; 80053; 82728; 83540; 83550; 83735; 85025; 96372; G0463; J0885

== ENCOUNTER 2025-08-17 14:37 | Outpatient (OUT) | payer MEDICARE, SELFPAY ==
--- OUTSIDE RECORDS SUMMARY | 2025-08-17 14:41 | XMS_ITS | CCD ---
Author Organization [facility] Care Team Providers Care Outside Sales Associate Name Role Phone UNKNOWN, PROVIDER Admitting Unavailable UNKNOWN, PROVIDER Attending Unavailable LUCIA ESTEBAN Referring Unavailable LUCIA ESTEBAN Primary Care Unavailable Shea Reyes Primary Care Provider CJ FOX Attending Unavailable CJ FOX Admitting Unavailable MONCHO, DR NORBERTO Trammell Consulting Unavailable CARLITO, DR LUCIA Mckeon Primary Care Unavailable ROSANNA, CJ Consulting Unavailable CARLITO, DR LUCIA Mckeon Primary Care Unavailable CJ FOX Admitting Unavailable CJ FOX Attending Unavailable Kevyn, DR Jorgensen Consulting Unavailable CJ FOX Consulting Unavailable CARLITO, DR LUCIA Mckeon Primary Care Unavailable CRESCENCIO, DR BERNABE Mejia Attending Unavailable CRESCENCIO, DR BERNABE Mejia Admitting Unavailable CRESCENCIO, DR BERNABE Mejia Consulting Unavailable CARLITO, DR LUCIA Mckeon Primary Care Unavailable CRESCENCIO, DR BERNABE Mejia Attending Unavailable CRESCENCIO, DR BERNABE Mejia Admitting Unavailable CRESCENCIO, DR BERNABE Mejia Attending Unavailable CRESCENCIO, DR BERNABE Mejia Admitting Unavailable CRESCENCIO, DR BERNABE Mejia Consulting Unavailable CARLITO, DR LUCIA Mckeon Primary Care Unavailable CRESCENCIO, DR BERNABE Mejia Attending Unavailable CRESCENCIO, DR BERNABE Mejia Admitting Unavailable PRATHER, DR BERNABE Mejia Consulting Unavailable CARLITO, DR LUCIA Mckeon Primary Care Unavailable CRESCENCIO, DR BERNABE Mejia Admitting Unavailable CRESCENCIO, DR BERNABE Mejia Consulting Unavailable CRESCENCIO, DR BERNABE Mejia Attending Unavailable CARLITO, DR LUCIA Mckeon Primary Care Unavailable CRESCENCIO, DR BERNABE Mejia Admitting Unavailable CRESCENCIO, DR BERNABE Mejia Consulting Unavailable CRESCENCIO, DR BERNABE Mejia Attending Unavailable CARLITO, DR LUCIA Mckeon Primary Care Unavailable CRESCENCIO, DR BERNABE Mjeia Admitting Unavailable CARLITO, DR LUCIA Mckeon Primary Care Unavailable CRESCENCIO, DR BERNABE Mejia Attending Unavailable CARLITO, DR LUCIA Mckeon Primary Care Unavailable DISHA HARRIS Admitting UnavailDISHA Simon O Attending Unavailabl e MONCHO, DR NORBERTO Trammell Consulting Unavailable DISHA HARRIS Consulting Unavailabl katelynn ESTEBAN, DR LUCIA Mckeon Primary Care Unavailable CJ FOX Admitting Unavailable ROSANNA, CJ Attending Unavailable MONCHO, DR NORBERTO Trammell Consulting Unavailable CJ FOX Consulting Unavailable CARLITO, DR LUCIA Mckeon Primary Care Unavailable FIDE CHUA Attending Unavailable FIDE CHUA Admitting Unavailable MONCHO, DR NORBERTO Trammell Consulting Unavailable FIDE CHUA Consulting Unavailable Carlito JUAREZ, Lucia Mckeon Unavailable [phone] Carlito JUAREZ, Lucia Mckeon Primary Care Provider [phone] Carlito JUAREZ, Lucia Mckeon Primary Care Provider MARÍA THAPA Attending Unavailable MARÍA THAPA Referring Unavailable ESTEBAN, LUCIA A Primary Care Unavailable MARÍA THAPA Referring Unavailable ESTEBAN, LUCIA A Primary Care Unavailable Carlito JUAREZ, Lucia Mckeon Primary Care Provider [phone] BRANNON CARRANZA Attending Unavailable LAVINIA HERRING Attending Unavailable LAVINIA HERRING Attending Unavailable HERRINGLAVINIA Referring Unavailable ESTEBAN, LUCIA A Primary Care Unavailable SAID ISIRDA SIMMONS Admitting Unavailable SAID ISIDRA SIMMONS Attending Unavailable ESTEBAN, LUCIA A Primary Care Unavailable ESTEBAN, LUCIA A Referring Unavailable ESTEBAN, LUCIA A Primary Care Unavailable Stefani Quezada MD Attending Provider [phone] Natasha Vazquez MD Attending Provider Shyam Crowell MD Attending Provider ESTEBAN, LUCIA A Referring Unavailable ESTEBAN, LUCIA [...] LUCIA A Primary Care Unavailable MYERS, DOMINIQUE W Attending Unavailable MYERS, DOMINIQUE W Attending Unavailable MYERS, DOMINIQUE W Referring Unavailable ESTEBAN, LUCIA A Primary Care Unavailable MYERS, DOMINIQUE W Attending Unavailable MYERS, DOMINIQUE W Referring Unavailable ESTEBAN, LUCIA A Primary Care Unavailable MYERS, DOMINIQUE W Attending Unavailable MYERS, DOMINIQUE W Referring Unavailable ESTEBAN, LUCIA A Primary Care Unavailable ESTEBAN, LUCIA A Referring Unavailable ESTEBAN, LUCIA A Primary Care Unavailable RACHELLE, SAMAR Referring Unavailable ESTEBAN, LUCIA A Primary Care Unavailable ESTEBAN, LUCIA A Primary Care Unavailable ESTEBAN, LUCIA A Primary Care Unavailable JIMMIE BUTTERFIELD Attending Unavailable Shyam Crowell MD Attending Provider Lucia Esteban MD Primary Care Provider NON STAFF Primary Care Provider Unavailabl e RACHELLE, WILIANAR Attending Unavailable RACHELLE, SAMAR Attending Unavailable RACHELLE, SAMAR Admitting Unavailable RACHELLE, KIMMY Attending Unavailable RACHELLE, SAMAR Attending Unavailable Ly DO, Nicky L Attending Provider Calvin Parekh PA-C Emergency Provider [phone] Shyam Crowell MD Attending Provider Natasha Vazquez MD Attending Provider Lucia Esteban MD Primary Care Provider [phone] Ly DO, Nicky L Other Provider [phone] Taylor, Natasha Admitting Unavailable Taylor, Natasha Attending Unavailable Esteban, Lucia A Primary Care Unavailable Ly, Nicky L Admitting Unavailable Ly, Nicky L Attending Unavailable Ly, Nicky L Admitting Unavailable Ly, Nicky L Attending Unavailable Esteban, Lucia A Primary Care Unavailable Esteban, Lucia A Primary Care Unavailable Calvin Parekh Admitting Unavailable Calvin Parekh Attending Unavailable Diab, Stefani A Admitting Unavailable Diab, Stefani A Attending Unavailable Taylor, Natasha Admitting Unavailable Taylor, Natasha Attending Unavailable Shyam Crowell Admitting Unavailable Shyam Crowell Attending Unavailable Allergies Allergy Classification Reported Allergen(s) Allergy Type Date of Onset Reaction(s) Facility (3 sources) Levamisole Drug Allergy 9 [facility] Repository (1 source) Penicillin Drug Allergy 9 [facility] Repository (2 sources) pregabalin Drug Allergy 9 [facility] Repository (15 sources) Penicillins; Translations: [PENICILLINS] Drug allergy (disorder) 3 flu like sx [facility] Repository (8 sources) Penicillins Drug Intolerance 8 Headache [facility] Work Phone: (20 sources) Pregabalin; Translations: [PREGABALIN] Allergy to substance 8 Dizziness, Headache, Other, Shortness of breath [facility] (20 sources) Promethazine; Translations: [PROMETHAZINE] Drug Allergy 8 Anxiety, Dizziness, Hallucinations , Itching, Other, Palpitations, Other (See Comments) [facility] (7 sources) Penicillins Propensity to adverse reactions to drug 8 Other (See Comments) [facility] (13 sources) pregabalin Drug Allergy 8 Other (See Comments) [facility] (6 sources) Penicillins Propensity to adverse reactions to drug 8 Other (See Comments) [facility] (9 sources) fentaNYL; Translations: [fentanyl] Drug Allergy 2 anxiety [facility] (1 source) Penicillins Drug allergy (disorder) 5 [facility] Repository (1 source) pregabalin Drug Allergy 5 [facility] Rep[facility] (1 source) Promethazine Drug Allergy 5 [facility] Repository Medications Current Medications Medication Drug Class(es) Dates Sig (Normalized) Sig (Original) [id number] 200 actuat albuterol 0.09 mg/actuat metered dose inhaler (17 sources) beta2-Adrenergic Agonist Start: 04-16-2025 take 1 puff(s) by inhalation every six hours as needed for wheezing Albuterol Sulfate (Ventolin Hfa) 90 mcg/actuation HFA aerosol inhaler Active 2 PUFF INHALATION Every 6 hours as needed for shortness of breath or wheezing April 16, 2025 12:00am Complies with drug therapy Start: 02-19-2025 take 3 mL by inhalat [...] Daily at bedtime April 16, 2025 12:00am Complies with drug therapy amitriptyline (E lavil) 10 MG tablet Active [...] (Multivitamin Adult) tablet as directed Orally Active atorvastatin 20 mg oral tablet (20 sources) HMG-CoA Reductase Inhibitor Start: 04-16-2025 take 4 tablets by mouth once daily at bedtime Atorvastatin 20 mg tablet Active 80 MG PO Daily at bedtime April 16, 2025 12:00am Complies with drug therapy Start: 04-16-2025 take 1 tablet by mouth once da vazquez at bedtime cholecalciferol 0.05 mg oral capsule (13 sources) Vitamin D take 1 capsule by [...] MG PO Daily April 16, 2025 12:00am Complies with drug therapy 1 ml epoetin jose 33372 unt/ml injection (7 sources) Erythropoiesis-stim ulating Agent Start: 04-16-2025 inject 99295 [IU] by subcutaneous injection every other week Epoetin Jose (Procrit) 40,000 unit/mL solution Active 08048 UNIT SUBCUT .Q2wks April 16, 2025 12:00am Complies with drug therapy erythromycin 0.005 mg/mg ophthalmic ointment (13 sources) Macrolide, Macrolide Antimicrobial Start: 06-24-2020 erythromycin (ILOTYCIN) ophthalmic ointment 06/24/2020 Active fluticasone / salmeterol (2 sources) Corticosteroid, beta2-Adrenergic Agonist Start: 02-19-2025 End: 02-20-2025 take 1 puff(s) by inhalation in the morning fluticasone propion-salmeteroL (ADVAIR DISKUS) 250-50 mcg/dose DISKUS Indications: Moderate persistent asthma without complication Inhale 1 puff in the morning and 1 puff before bedtime. 60 each 11 02/19/2025 02/20/2025 Discontinued Fluticasone Furoate-Vilantero l (11 sources) Corticosteroid, beta2-Adrenergic Agonist Start: 04-16-2025 Start: 04-16-2025 Fluticasone Fu roate-Vilanterol (Breo Ellipta) 200-25 mcg/dose blister with device Active 1 INH INHALATION Daily April 16, 2025 12:00am Complies with drug therapy Start: 04-16-2025 Fluticasone Fu roate-Vilanterol (Breo Ellipta) 200-25 mcg/dose blister with device Active 1 INH INHALATION Daily April 16, 2025 12:00am Start: 02-20-2025 take 1 puff(s) by in halation in the morning fluticasone furoate-vilanteroL (BREO ELLIPTA) 200-25 mcg/dose blister with device Indications: Moderate persistent asthma without complication Inhale 1 puff in the morning. 60 each 6 02/20/2025 Active gabapentin 300 mg oral capsule (20 sources) Anti-epileptic Agent Start: 04-16-2025 take 1 capsule by mouth three times daily Gabapentin 300 mg capsule Active 300 MG PO Three times daily April 16, 2025 12:00am Complies with drug therapy Start: 08-23-2022 End: 12-11-2024 take 1 capsule [...] hours Active hydroCHLOROthiazide 12.5 mg oral capsule (5 sources) Thiazide Diuretic Start: 01-29-2025 End: 01-29-2026 [...] time Active letrozole 2.5 mg oral tablet (14 sources) Aromatase Inhibitor Start: 04-16-2025 take 1 tablet by mouth once daily Letrozole 2.5 mg tablet Active 2.5 MG PO Daily April 16, 2025 12:00am Complies with drug therapy lisinopril 10 mg oral tablet (20 sources) Angiotensin Converting Enzyme Inhibitor Start: 04-16-2025 take 1 tablet by mouth once daily Lisinopril 10 mg tablet Active 10 MG PO Daily April 16, 2025 12:00am Complies with drug therapy meclizine hydrochloride 25 mg oral tablet (13 sources) Antiemetic take 1 tablet by mouth [...] MG PO Daily April 16, 2025 12:00am Complies with drug therapy take 1 tablet by franky th every twenty-four hours in the morning metoprolol succinate XL (TOPROL-XL) 25 m g 24 hr tablet Indications: hypertension Take 1 tablet (25 mg total) by mouth in the morning. Indications: high blood pressure. Active montelukast 10 mg oral tablet (12 sources) Leukotriene Receptor Antagonist Start: 02-06-2025 take 1 tablet by mouth once daily at bedtime Montelukast (Singulair) 10 mg tablet Active 10 MG PO Daily at bedtime April 16, 2025 12:00am Complies with drug therapy multivit-minerals/ ferrous fum (MULTI VITAMIN ORAL) (13 sources) multivit-mineral s/ ferrous fum (MULTI VITAMIN [...] AT BEDTIME 180 capsule 3 12/11/2024 Active pantoprazole 40 mg delayed release oral tablet (7 sources) Proton Pump Inhibitor Start: 04-16-2025 take 1 tablet by mouth once daily Pantoprazole 40 mg tablet,delayed release (DR/EC) Active 40 MG PO Daily April 16, 2025 12:00am Complies with drug therapy prochlorperazine 10 mg oral tablet (7 sources) Phenothiazine Start: 04-16-2025 take 1 tablet by mouth every eight hours as needed for nausea and vomiting Prochlorperazine Maleate (Compazine) 10 mg tablet Active 10 MG PO Every 8 hours as needed for nausea and vomiting April 16, 2025 12:00am Complies with drug therapy Completed/Discontinued Medications Medication Drug Class(es) Dates Sig (Normalized) Sig (Original) acetaminophen 325 mg oral capsule (20 sources) Start: 04-16-2025 End: 06-22-2025 take 1 capsule by mouth every six hours as needed Acetaminophen 325 mg capsule Discontinued 325 MG PO Every 6 hours as needed April 16, 2025 12:00am June 22, 2025 1:25pm take 2 tablets by mo ut every [...] (20 sources) Histamine-1 Receptor Antagonist Start: 04-16-2025 End: 06-22-2025 take 1 tablet by mouth once daily at bedtime as needed Diphenhydramine-Acetaminophen (Acetaminophen Pm Extra Str) 25-500 mg tablet Discontinued 1 TAB PO Daily at bedtime as needed June 04, 2025 12:00am June 22, 2025 1:26pm aspirin 81 mg oral tablet (18 sources) Platelet Aggregation Inhibitor, Nonsteroidal Anti-inflammato ry Drug Start: 04-16-2025 End: 06-22-2025 take 1 tablet by mouth once daily Aspirin 81 mg tablet Discontinued 81 MG PO Daily April 16, 2025 12:00am June 22, 2025 1:25pm aspirin 81 mg ch ewable tablet Chew 1 tablet (81 mg total) and swallow in the morning. prevention. Active benzonatate 100 mg oral capsule (7 sources) Non-narcotic Antitussive Start: 04-16-2025 End: 06-22-2025 take 1 capsule by mouth twice daily as needed Benzonatate 100 mg capsule Discontinued 100 MG PO Twice daily as needed April 16, 2025 12:00am June 22, 2025 1:26pm ibuprofen 200 mg oral tablet (7 sources) Nonsteroidal Anti-inflammatory Drug Start: 04-16-2025 End: 04-16-2025 take 1 tablet by mouth once Ibuprofen 200 mg tablet Discontinued 200 MG PO Once April 16, 2025 12:00am April 16, 2025 3:01pm 1 ml methylPREDNISolone acetate 40 mg/ml injection (8 sources) Corticosteroid Start: 02-06-2025 End: 02-06-2025 methylPREDNISolone acetate (DEPO-Medrol) injection 40 mg Start: 02-06-2025 End: 02-06-2025 40 mg, Intra-articular, Once PRN Procedure, Starting on Sun02/06/25 at 1320, For 1 dose Start: 08-27-2024 End: 08-27-2024 methylPREDNISolone acetate ( DEPO-Medrol) injection 40 mg Start: 08-27-2024 End: 08-27-2024 40 mg, Intra-articular, Once PRN Procedure, Starting on Sun08/27/24 at 1221, For 1 dose ondansetron 4 mg disintegrating oral tablet (7 sources) Serotonin-3 Receptor Antagonist Start: 04-16-2025 End: 06-22-2025 take 1 tablet by mouth every eight hours as needed Ondansetron 4 mg tablet,disintegrating Discontinued 4 MG PO Every 8 hours as needed April 16, 2025 12:00am June 22, 2025 1:27pm palbociclib 100 mg oral capsule (11 sources) Kinase Inhibitor Start: 04-16-2025 End: 04-16-2025 Palbociclib (Ibrance) 100 mg capsule Discontinued 100 MG PO Daily April 16, 2025 12:00am April 16, 2025 3:02pm administer on days 1 through 21 of a 28-day treatment cycle take 1 capsule by [facility] once daily at mealtime palbociclib (Ibrance) 125 MG chemo capsu le Take 125 mg by mouth Daily with meals. Swallow whole. Active predniSONE 5 mg oral tablet (3 sources) End: 02-19-2025 take 1 tablet by mouth in the morning predniSONE (DELTASONE) 5 mg tablet Take 1 tablet (5 mg total) by mouth in the morning. 02/19/2025 Discontinued sucralfate 1000 mg oral tablet (7 sources) Aluminum Complex Start: 04-16-2025 End: 06-22-2025 take 1 tablet by mouth twice daily Sucralfate (Carafate) 1 gram tablet Discontinued 1 GM PO Twice daily April 16, 2025 12:00am June 22, 2025 1:31pm UNABLE TO FIND (7 sources) End: 12-22-2024 [...] Active Problems Problem Classification Problem Date Documented Da te Episodic/Chronic Acute and unspecified renal failure (19 sources) Acute renal failure syndrome; Translations: [Acute kidney failure, unspecified] Onset: 5 04-16-2025 Episodic Asthma (7 sources) Uncomplicated moderate persistent asthma; Translations: [Moderate persistent asthma, uncomplicated] Onset: 5 02-20-2025 Chronic Cancer of breast (16 sources) Malignant tumor of breast ; Translations: [Malignant neoplasm of unspecified site of unspecified female breast] 04-16-2025 Chronic Chronic kidney disease (18 sources) Chronic kidney disease stage 3; Translations: [Stage 3 chronic kidney disease] 04-16-2025 Chronic Coronary atherosclerosis and other heart disease (5 sources) Atherosclerotic heart disease of [place] coronary artery with unstable angina pectoris; Translations: [Unstable angina] Onset: Chronic Deficiency and other anemia (15 sources) Anemia of chronic disease; Translations: [Anemia in other chronic diseases classified elsewhere] 04-16-2025 Chronic Deficiency and other anemia (1 source) Anemia in other chronic diseases classified elsewhere; Translations: [Anemia of other chronic disease] 04-16-2025 Chronic Deficiency and other anemia (1 source) Anemia, unspecified; Translations: [Anemia, unspecified] Onset: Episodic Disorders of lipid metabolism (20 sources) Hyperlipidemia; Translations: [Hyperlipidemia, unspecified] Onset: 5 04-16-2025 Chronic Diverticulosis and diverticulitis (13 sources) Diverticulosis of large intestine; Translations: [Diverticulosis of large intestine without perforation or abscess without bleeding] Onset: 0 08-02-2020 Chronic E Codes: Fall (1 source) Fall Onset: 4 E Codes: Natural/environment (1 source) Bitten by cat, initial encounter; Translations: [Bitten by cat, initial encounter] Onset: 5 Episodic Esophageal disorders (11 sources) Gastroesophageal reflux disease without esophagitis; Translations: [Gastro-esophageal reflux disease without esophagitis] Onset: 5 12-11-2024 Chronic Essential hypertension (2 sources) Essential (primary) hypertension; Translations: [Essential (primary) hypertension] Onset: 5 Chronic Fluid and electrolyte disorders (1 source) Hypo-osmolality and hyponatremia; Translations: [Hypo-osmolality and hyponatremia] Onset: 5 Episodic Gastrointestinal hemorrhage (1 source) Melena; Translations: [Melena] Onset: 5 Episodic Headache; including migraine (1 source) Headache; including migraine Onset: 5 Hypertension with complications and secondary hypertension (18 sources) Chronic kidney disease due to hypertension; Translations: [Hypertensive chronic kidney disease with stage 1 through stage 4 chronic kidney disease, or unspecified chronic kidney disease] 04-16-2025 Chronic Malaise and fatigue (1 source) Fatigue Onset: 5 Episodic Osteoarthritis (20 sources) Primary osteoarthritis, right ankle and foot; Translations: [Osteoarthritis of right knee joint] Onset: 8 Chronic Other and unspecified benign neoplasm (13 sources) Neoplasm of meninges; 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, unspecified] Onset: 9 01-31-2019 Chronic Other connective tissue disease (5 sources) Pain in right foot; Translations: [PAIN IN RIGHT FOOT] Onset: 2 Episodic Other connective tissue disease (5 sources) Other muscle spasm; Translations: [OTHER MUSCLE SPASM] Onset: 2 Episodic Other connective tissue disease (1 source) Pain in right leg; Translations: [PAIN IN RIGHT LEG] Onset: 2 Episodic Other connective tissue disease (5 sources) Pain in left leg; Translations: [PAIN IN LEFT LEG] Onset: 2 Episodic Other injuries and conditions due to external causes (2 sources) 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; Translations: [Unspecified injury of head, initial encounter] 07-01-2025 Episodic Other injuries and conditions due to external causes (1 source) Unspecified injury of head, initial encounter; Translations: [Unspecified injury of head, initial encounter] Onset: 5 Episodic Other lower respiratory disease (15 sources) Multiple nodules of lung; Translations: [Other nonspecific abnormal finding of lung field] Onset: 5 12-11-2024 Episodic Other lower respiratory disease (2 sources) Nodule of lung; Translations: [Solitary pulmonary nodule] 12-11-2024 Episodic Other lower respiratory disease (1 source) Dyspnea; Translations: [Shortness of breath] 12-11-2024 Episodic Other lower respiratory disease (2 sources) Cough Onset: 5 Episodic Other lower respiratory disease (1 source) Shortness of breath Onset: 5 Episodic Other lower respiratory disease (1 source) Wheezing Onset: 5 Episodic Other nervous system disorders (1 source) Other specified mononeuropathies; Translations: [OTHER SPECIFIED MONONEUROPATHIES] Onset: 2 Chronic Other nervous system disorders (1 source) Polyneuropathy, unspecified; Translations: [POLYNEUROPATHY UNSPECIFIED] Onset: 2 Chronic Other nervous system disorders (2 sources) Neuropathy; Translations: [Polyneuropathy, unspecified] 11-09-2023 Chronic Other non-traumatic joint disorders (2 sources) Arthritis of right knee 02-06-2025 Chronic Other non-traumatic joint disorders (5 sources) Pain in right ankle and joints of right foot; Translations: [PAIN IN RIGHT ANKLE] Onset: 2 Episodic Other non-traumatic joint disorders (4 sources) Pain in right knee; Translations: [Pain in joint, lower leg] 08-26-2024 Episodic Other nutritional; endocrine; and metabolic disorders (1 source) Hypomagnesemia; Translations: [Hypomagnesemia] Onset: 5 Chronic Residual codes; unclassified (1 source) Other specified postprocedural states; Translations: [OTH SPECIFIED POSTPROCEDURAL STATES] Onset: 2 Episodic Unclassified (1 source) New Patient Onset: 5 Unclassified (1 source) Lung Nodule Onset: 5 Unclassified (1 source) Animal Bite Onset: 5 Unclassified (1 source) EMS Onset: 4 Unclassified (1 source) Low back pain, unspecified; Translations: [Low back pain, unspecified] Onset: 4 Past or Other Problems Problem Classification Problem Date Documented Da te Episodic/Chronic Cancer of breast (11 sources) History of malignant neoplasm of breast; Translations: [Personal history of malignant neoplasm of breast] Onset: 12-11-2024 12-11-2024 Episodic E Codes: Fall (1 source) Unspecified fall, initial encounter; Translations: [Unspecified fall, initial encounter] Onset: 07-19-2024 Episodic Genitourinary symptoms and ill-defined conditions (1 source) Dysuria; Translations: [Dysuria] Onset: 06-10-2024 Episodic Mood disorders (13 sources) Mood disorders Onset: 07-23-2020 07-23-2020 Nonspecific chest pain (5 sources) Chest pain, unspecified; Translations: [Chest pain] Onset: 10-24-2024 Episodic Other connective tissue disease (4 sources) Pain in right lower leg; Translations: [PAIN IN RIGHT LOWER LEG] Onset: 03-07-2022 Episodic Other connective tissue disease (1 source) Pain in left lower leg; Translations: [PAIN IN LEFT LOWER LEG] Onset: 03-07-2022 Episodic Other connective tissue disease (1 source) Pain in left foot; Translations: [PAIN IN LEFT FOOT] Onset: 03-03-2022 Episodic Other gastrointestinal disorders (13 sources) Dark stools; Translations: [Other fecal abnormalities] Onset: 07-13-2020 07-13-2020 Episodic Other lower respiratory disease (2 sources) Solitary pulmonary nodule; Translations: [Solitary pulmonary nodule] Onset: 12-11-2024 Episodic Other lower respiratory disease (3 sources) Shortness of breath; Translations: [Shortness of breath] Onset: 10-24-2024 Episodic Other lower respiratory disease (2 sources) Other nonspecific abnormal finding of lung field; Translations: [Other nonspecific abnormal finding of lung field] Onset: 12-11-2024 Episodic Other lower respiratory disease (6 sources) Dyspnea on exertion; Translations: [Other forms of dyspnea] Onset: 02-19-2025 02-19-2025 Episodic Other lower respiratory disease (3 sources) Other forms of dyspnea; Translations: [Other forms of dyspnea] Onset: 11-13-2024 Episodic Other lower respiratory disease (1 source) Wheezing; Translations: [Wheezing] Onset: 10-24-2024 Episodic Other non-traumatic joint disorders (5 sources) Pain in left ankle and joints of left foot; Translations: [PAIN IN LEFT ANKLE] Onset: 11-02-2021 Episodic Other screening for suspected conditions (not mental disorders or infectious disease) (13 sources) History of adenomatous polyp of colon; Translations: [Encounter for screening for malignant neoplasm of colon] Onset: 07-13-2020 07-13-2020 Episodic Residual codes; unclassified (1 source) Pain, unspecified; Translations: [Pain, unspecified] Onset: 12-02-2024 Episodic Superficial injury; contusion (2 sources) Contusion of right hip, initial encounter; Translations: [Contusion of right front wall of thorax, initial encounter] Onset: 07-19-2024 Episodic Unclassified (13 sources) Onset: 08-02-2020 08-02-2020 Results Test Name Value Interpretation Reference Range Facility Pathology Request for Lab Co rpon 07-20-2025 Pathology Request for Lab Michael Normal [facility] Comment on above: Order Comment: GI SP ECIMEN Result Comment: See report. Scanned copy available in EMR. PERFORMED BY: [place] [address] PATHOLOGIST LABORATORY CHEMICAL ASSISTANT LESLEY WHITMORE M.D. Performed By: #### P ATH TO [facility] #### [address] head/brain wo [facility] 07-01 CT head/brain [place] [facility] [address] CT Scan Report Signed Patient: Margy Oakes MR#: [id number] 31 : 1945 Acct:[id number] Age/Sex: 80 / F ADM Date: 07/01/25 Loc: ER Room: Type: [facility] Attending Dr: Copies to: Calvin Parekh PA-C Ordering Provider: Calvin Parekh PA-C Date of Service: 07/01/25 CT/CT head/brain wo con: head injury [address] BRAIN WITHOUT CONTRAST: CLINICAL HISTORY: Fall, mild headache since fall, history of breast cancer COMPARISON: None TECHNIQUE: Contiguous axial unenhanced images were obtained through the brain. This CT exam was performed using one or more following dose reduction techniques: Automated exposure control, adjustment of the mA and/or kV according to patient size, or use of iterative reconstruction technique. FINDINGS: There is no evidence of midline shift, intra or extra-axial fluid collection, hemorrhage or CT evidence of of acute large vascular lesion stroke Vascular calcifications. Visualized intraorbital contents appear unremarkable. Visualized paranasal sinuses are clear. The surrounding soft tissues are normal. CT/CT head/brain wo con IMPRESSION: NO ACUTE INTRACRANIAL ABNORMALITY. Impression dictated by: Marco Correa M.D. 07/01/2025 2:55 PM Dictation Location: [place] [address] Transcribed By: [facility] 07/01/25 145 Dictated By: Marco Correa MD 07/01/251452 Signed By: 07/01/25 145 Normal [facility] Urine Cultureon 06-16-2025 Bacteria identified Cx Nom (U) <9,000 colonies/ml mixed bacterial skin contaminants 2 Days PERFORMED BY: [place] [address] PATHOLOGIST LABORATORY CHEMICAL ASSISTANT LESLEY WHITMORE M.D. Normal [facility] Comment on above: Performed By: #### C UU #### [address] Urine cultureOrdered By: Adri Vazquez on 06-16-2025 Bacteria identified Cx Nom (U) 2 Days [facility] Office Visiton 06-10-2025 Follow-up visit [id number] Sugar Oakes 1945 F Date Provider Department Center 06/10/2025 [id number], [facility] Family History Problem Relation Age of Onset Cancer Mother Cancer Father Cancer Brother Family Status - Relation Status Age at Mother Father Brother Level of Service:02190 UT OFFICE/OUTPATIENT ESTABLISHED MOD MDM 30 MIN Reason for Visit and Comments: 3 month follow up with labs [Other] Coronary Artery Disease [187] Hypertension [733657] Hyperlipidemia [182] Follow up from ER visit [facility] 05/28/2025 [Other] Normal [facility] B-TYPE NATRIURETIC PEPTIDEon 05-29-2025 Natriuretic peptide B (Bld) [Mass/Vol] 151 pg/mL High <=100 [facility] Comment on above: Performed By: #### 6 30-4 #### [facility] ([id number]) [address] [facility], [address] [place] [address] CBC WITH AUTO DIFFERENTIALon 05-29-2025 BASOPHILS ABSOLUTE COUNT (10*3/UL) BY AUTOMATED COUNT 0.0 10*3/uL Normal 0.0-0.2 [facility] Comment on above: Performed By: #### 6 30-4 #### [facility] ([id number]) [address] [facility] [address], [address] [place] [address] BASOPHILS RELATIVE PERCENT BY AUTOMATED COUNT 0.3 % Normal [facility] Comment on above: Performed By: #### 6 30-4 #### [facility] ([id number]) [address], [address] [place] [address] CELLAVISION DIFFERENTIAL TYPE AUTOMATED DIFFERENTIAL Normal [facility] Comment on above: Performed By: #### 6 30-4 #### [facility] ([id number]) [address], [address] [place] [address] Eosinophils (Bld) [#/Vol] 0.0 10*3/uL Normal 0.0-0.4 [facility] Comment on above: Performed By: #### 6 30-4 #### [facility] ([id number]) [address] [facility], [address] [place] [address] EOSINOPHILS RELATIVE PERCENT BY AUTOMATED COUNT 0.0 % Normal [facility] Comment on above: Performed By: #### 6 30-4 #### [facility] ([id number]) [address], [address] [place] [address] Erythrocyte distribution width (RBC) [Ratio] 16.4 % High 11.5-15 [facility] Comment on above: Performed By: #### 6 30-4 #### [facility] ([id number]) [address] [place] [address] Hematocrit (Bld) [Volume fraction] 30.6 % Low 35-47 [facility] Comment on above: Performed By: #### 6 30-4 #### [facility] ([id number]) [address] [place] [address] Hemoglobin (Bld) [Mass/Vol] 10.4 g/dL Low 11.7-15.5 [facility] Comment on above: Performed By: #### 6 30-4 #### [facility] ([id number]) [address] [facility] [address] [place] [address] LYMPHOCYTES ABSOLUTE COUNT (10*3/UL) BY AUTOMATED COUNT 1.1 10*3/uL Normal 1.0-3.5 [facility] Comment on above: Performed By: #### 6 30-4 #### [facility] ([id number]) [address], [address] [place] [address] LYMPHOCYTES RELATIVE PERCENT BY AUTOMATED COUNT 15.4 % Normal [facility] Comment on above: Performed By: #### 6 30-4 #### [facility] ([id number]) [address] [address] [place] [address] MCH (RBC) [Entitic mass] 34.8 pg High 27-34 [facility] Comment on above: Performed By: #### 6 30-4 #### [facility] ([id number]) [address] [place] [address] MCHC (RBC) [Mass/Vol] 34.0 g/dL Normal 32-36 [facility] Comment on above: Performed By: #### 6 30-4 #### [facility] ([id number]) [address], [address] [place] [address] MCV (RBC) [Entitic vol] 102 fL High 80-100 P [facility] Comment on above: Performed By: #### 6 30-4 #### [facility] ([id number]) [address], [address] [place] [address] MONOCYTES ABSOLUTE COUNT (10*3/UL) BY AUTOMATED COUNT 0.2 10*3/uL Normal 0.0-0.9 [facility] Comment on above: Performed By: #### 6 30-4 #### [facility] ([id number]) [address], [address] [place] [address] MONOCYTES RELATIVE PERCENT BY AUTOMATED COUNT 3.4 % Normal [facility] Comment on above: Performed By: #### 6 30-4 #### [facility] ([id number]) [address], [address] [place] [address] NEUTROPHILS ABSOLUTE COUNT BY AUTOMATED COUNT 5.6 10*3/uL Normal 1.5-6.6 [facility] Comment on above: Performed By: #### 6 30-4 #### [facility] ([id number]) [address], [address] [place] [address] NEUTROPHILS RELATIVE PERCENT BY AUTOMATED COUNT 80.9 % Normal [facility] Comment on above: Performed By: #### 6 30-4 #### [facility] ([id number]) [address], [address] [place] [address] Platelet mean volume (Bld) [Entitic vol] 8.0 fL Normal 7-12 [facility] Comment on above: Performed By: #### 6 30-4 #### [facility] ([id number]) [address], [address] [place] [address] Platelets (Bld) [#/Vol] 322 10*3/uL Normal 150-450 [facility] Comment on above: Performed By: #### 6 30-4 #### [facility] ([id number]) [address], [address] [place] [address] RBC COUNT 2.99 X10E12/L Low 3.8-5.2 [facility] Comment on above: Performed By: #### 6 30-4 #### [facility] ([id number]) [address], [address] [place] [address] WBC (Bld) [#/Vol] 6.9 10*3/uL Normal 4-11 [facility] Comment on above: Performed By: #### 6 30-4 #### [facility] ([id number]) [address], [address] [place] [address] COMPREHENSIVE METABOLIC PANE Brad 05-29-2025 Albumin [Mass/Vol] 4.1 g/dL Normal 3.2-5.3 [facility] Comment on above: Performed By: #### 6 30-4 #### [facility] ([id number]) [address], [address] [place] [address] ALP [Catalytic activity/Vol] 72 U/L Normal 39-130 [facility] Comment on above: Performed By: #### 6 30-4 #### [facility] ([id number]) [address], [address] [place] [address] ALT [Catalytic activity/Vol] 17 U/L Normal <=31 [facility] Comment on above: Result Comment: R-Sp ecimen hemolyzed, results increased Performed By: #### 6 30-4 #### [facility] ([id number]) [address], [address] [place] [address] Anion gap [Moles/Vol] 8 mmol/L Normal 5-15 [facility] Comment on above: Performed By: #### 6 30-4 #### [facility] ([id number]) [address], [address] [place] [address] AST [Catalytic activity/Vol] 34 U/L Normal <=41 [facility] Comment on above: Result Comment: R-Sp ecimen hemolyzed, results increased Performed By: #### 6 30-4 #### [facility] ([id number]) [address], [address] [place] [address] Bilirubin [Mass/Vol] 1.3 mg/dL High 0.3-1.2 [facility] Comment on above: Result Comment: R-Re sults questionable due to hemolysis Performed By: #### 6 30-4 #### [facility] ([id number]) [address], [address] [place] [address] Calcium [Mass/Vol] 8.9 mg/dL Normal 8.5-10.5 [facility] Comment on above: Performed By: #### 6 30-4 #### [facility] ([id number]) [address], [address] [place] [address] Chloride [Moles/Vol] 95 mmol/L Low 98-109 [facility] Comment on above: Performed By: #### 6 30-4 #### [facility] ([id number]) [address], [address] [place] [address] CO2 [Moles/Vol] 24 mmol/L Normal 22-32 [facility] Comment on above: Performed By: #### 6 30-4 #### [facility] ([id number]) [address], [address] [place] [address] Creatinine [Mass/Vol] 1.74 mg/dL High 0.40-1.00 [facility] Comment on above: Result Comment: METH OD TRACEABLE TO IDMS STANDARD Performed By: #### 6 30-4 #### [facility] ([id number]) [address], [address] [place] [address] GFR/1.73 sq M.predicted among non-blacks MDRD (S/P/Bld) [Vol rate/Area] 29 mL/min/{1.73_m2} Low >=60 [facility] Comment on above: Result Comment: Repo rted eGFR is based on the CKD-EPI 2020 equation that does not use a race coefficient. Performed By: #### 6 30-4 #### [facility] ([id number]) [address], [address] [place] [address] Glucose [Mass/Vol] 161 mg/dL High 65-99 [facility] Comment on above: Performed By: #### 6 30-4 #### [facility] ([id number]) [address], [address] [place] [address] Potassium [Moles/Vol] 4.6 mmol/L Normal 3.5-5.0 [facility] Comment on above: Result Comment: R-Sp ecimen hemolyzed, results increased Performed By: #### 6 30-4 #### [facility] ([id number]) [address], [address] [place] [address] Protein [Mass/Vol] 7.5 g/dL Normal 6.0-8.0 [facility] Comment on above: Result Comment: R-Sp ecimen hemolyzed, results increased Performed By: #### 6 30-4 #### [facility] ([id number]) [address], [address] [place] [address] Sodium [Moles/Vol] 127 mmol/L Low 134-146 [facility] Comment on above: Performed By: #### 6 30-4 #### [facility] ([id number]) [address], [address] [place] [address] Urea nitrogen [Mass/Vol] 27 mg/dL Normal 5-27 [facility] Comment on above: Performed By: #### 6 30-4 #### [facility] ([id number]) [address], [address] [place] [address] D-DIMERon 05-29-2025 D DIMER 317 ug/mL High 1-255 [facility] Comment on above: Result Comment: Resu lts >255 ng/mL DDU: Results may be indicative of the presence of VTE. The use of the Wells score and further diagnostic tests should be considered. Elevated D-Dimer levels can be associated with DIC, neoplasm, , trauma and liver disease. Elevated levels of rheumatoid factor may lead to an overestimation of the D-Dimer level. Performed By: #### 6 30-4 #### [facility] ([id number]) [address] [address] [place] [address] MAGNESIUMon 05-29-2025 Magnesium [Mass/Vol] 1.6 mg/dL Low 1.8-2.6 [facility] Comment on above: Result Comment: R-Sp ecimen hemolyzed, results increased Performed By: #### 6 30-4 #### [facility] ([id number]) [address] [address] TROP I, HIGH SENSITIVITY 1 H OURon 05-29-2025 TROPONIN I, HIGH SENSITIVITY 5 ng/L Normal <16 [facility] Comment on above: Performed By: #### 6 30-4 #### [facility] ([id number]) [address] [address] TROPONIN I, HIGH SENSITIVITY 0 HOURon 05-29-2025 TROPONIN I, HIGH SENSITIVITY 5 ng/L Normal <16 [facility] Comment on above: Performed By: #### 6 30-4 #### [facility] ([id number]) [address] [place] [address] XR CHEST 2 VWSon 05-29-2025 XR CHEST 2 VWS XR CHEST 2 VWS XR CHEST 2 VWS HISTORY: Intermittent chest pain COMPARISON: 12/25/2024, 10/24/2024 FINDINGS: No pleural effusion, pneumothorax, or focal consolidative process. Cardiomediastinal silhouette appears nonenlarged. IMPRESSION: * No evidence for acute pulmonary process. Approved by Resident: Dane Petty MD on 05/29/2025 1:39 AM I, Ramses Khan MD have personally reviewed the image(s) and agree with and/or edited the report Finalized by Ramses Khan MD on 05/29/2025 1:41 AM Normal [facility] Centriole Ab [Titer] in Seru m by Immunofluorescenceon 04-16-2025 Centriole Ab IF (S) [Titer] TNP . [facility] Centromere Ab [Titer] in Ser um by Immunofluorescenceon 04-16-2025 Centromere Ab IF (S) [Titer] TNP . [facility] Estimated glomerular filtrat ion rate (GFR) non- Americanon 04-16-2025 GFR/1.73 sq M.predicted among non-blacks MDRD (S/P/Bld) [Vol rate/Area] Estimated glomerular filtration rate (GFR) non- Low >=60 mL/min/1.73m 2 [facility] GFR/1.73 sq M.predicted among non-blacks MDRD (S/P/Bld) [Vol rate/Area] 26 mL/min/{1.73_m2} Low >=60 mL/min/1.73m 2 [facility] Laboratory - Chemistry and C hemistry - challengeon 04-16-2025 Albumin [Mass/Vol] 3.1 g/dL Low 3.4-5.0 [facility] Calcium [Mass/Vol] 9.4 mg/dL 8.5-10.1 [facility] Chloride [Moles/Vol] 99 mmol/L 98-107 [facility] CO2 [Moles/Vol] 26.2 mmol/L 21.0-32.0 [facility] Creatinine [Mass/Vol] 1.84 mg/dL High 0.55-1.02 [facility] GFR/1.73 sq M.predicted MDRD (S/P/Bld) [Vol rate/Area] 32 mL/min/{1.73_m2} Low >=60 mL/min/1.73m 2 [facility] Glucose [Mass/Vol] 97 mg/dL 74-106 [facility] Potassium [Moles/Vol] 4.8 mmol/L 3.5-5.1 [facility] Sodium [Moles/Vol] 133 mmol/L Low 136-145 [facility] Urea nitrogen [Mass/Vol] 21.0 mg/dL High 7.0-18.0 [facility] Urea nitrogen/Creatinine [Mass ratio] 11.4 mg/mg [facility] Bilirubin Ql (U) Negative NEGATIVE [facility] Glucose (U) [Mass/Vol] Negative NEGATIVE [facility] Ketones Ql (U) Negative NEGATIVE [facility] pH (U) 6.0 [pH] 5.0-9.0 [facility] Specific gravity (U) [Rel density] <=1.005 Abnormal 1.005-1.025 [facility] Urobilinogen Qn (U) 0.2 {Maegan'U}/dL 0.2-1.0 [facility] Laboratory - Specimen inform ationon 04-16-2025 Appearance (U) CLEAR CLEAR [facility] Color (U) LT. YELLOW YELLOW [facility] Laboratory - Urinalysison Hyaline casts LM Ql (Urine sed) RARE [facility] Leukocyte esterase Test strip Ql (U) SMALL Abnormal NEGATIVE [facility] Mucus Ql (Urine sed) NONE SEEN NONE SEEN [facility] Nitrite Ql (U) Negative NEGATIVE [facility] Protein (U) [Mass/Vol] 9.4 mg/dL <=11.9 [facility] Protein Ql (U) Negative NEG/TRACE [facility] Midbody Ab [Titer] in Serum by Immunofluorescenceon 04-16-2025 Midbody Ab IF (S) [Titer] TNP . [facility] Mitotic spindle apparatus Ab [Titer] in Serum or Plasma by Immunofluorescenceon 04-16-2025 Mitotic spindle apparatus Ab IF [Titer] TNP . [facility] Myeloperoxidase Ab [Units/vo lume] in Serum by Immunoassayon 04-16-2025 Myeloperoxidase Ab IA Qn (S) <0.2 units 0.0-0.9 [facility] No Panel Informationon 04-16 Anti-Nuclear Antibody Comment 2 Comment . [facility] Comment on above: Pattern Potential Di sease Association Homogeneous Systemic Lupus Erythematosus, Drug Induced Systemic Lupus Erythematosus, Chronic Autoimmune hepatitis, Juvenile Idiopathic Arthritis Speckled Sjogren Syndrome, Systemic Lupus Erythematosus, Subacute Cutaneous Lupus, Lupus, Congenital Heart Block, Mixed Connective Tissue Disease, Scleroderma-diffuse, Scleroderma-Autoimmune Myositis Overlap Syndrome, Systemic Lupus Obbculvzoeuie-Nldqhcrfeya-Saradodgbd Myositis Overlap Syndrome, Systemic Autoimmune Rheumatic Disease, Undifferentiated Connective Tissue Disease Nucleolar Systemic Sclerosis, Scleroderma-Autoimmune Myositis Overlap Syndrome, Sjogren Syndrome, Raynaud phenomenon, Pulmonary Arterial Hypertension, Systemic Autoimmune Rheumatic Disease, Cancer Centromere Scleroderma-CREST, Limited Cutaneous SSc, Raynaud's Phenomenon, Primary Biliary Cholangitis Nuclear Dot Primary Biliary Cholangitis Nuclear Primary Biliary Cholangitis, AutoimmuneMembrane Hepatitis/Liver disease, Systemic Autoimmune Rheumatic Disease, Autoimmune Cytopenias, Linear Scleroderma, Antiphospholipid Syndrome Performed at: [facility] [id number] Director: Yaw Shelby PhD, Phone: [phone] Atypical p-ANCA <1:20 titer Neg:<1:20 [facility] Comment on above: The atypical pANCA p attern has been observed in asignificant percentage of patients with ulcerative colitis,primary sclerosing cholangitis and autoimmune hepatitis.Performed at: [facility] [id number] Director: Clint Stoner MD, Phone: [phone] at: [facility] [id number] Director: Yaw Shelby PhD, Phone: [phone] Perinuclear ANCA (p-ANCA) Antibody <1:20 titer Neg:<1:20 [facility] Comment on above: The presence of posi tive fluorescence exhibiting P-ANCA orC-ANCA patterns alone is not specific for the diagnosis ofWegener's Granulomatosis (WG) or microscopic polyangiitis.Decisions about treatment should not be based solely onANCA IFA results. The International ANCA Group Consensusrecommends follow up testing of positive sera with both UT-3 and MPO-ANCA enzyme immunoassays. As many as 5% serumsamples are positive only by EIA. Ref. AM J Clin Pbiinh5925;111:507-513. Phosphorus Level 4.0 mg/dL 2.6-4.7 [facility] Urine Bacteria TRACE #/HPF Abnormal NONE SEEN [facility] Urine Culture Reflexed YES-[facility] Urine Occult Blood Negative NEGATIVE [facility] Urine Other Casts SEEN #/LPF Abnormal NONE SEEN [facility] Urine Other Crystals None Seen #/HPF None Seen [facility] Urine Random Creatinine 46.09 mg/dL 20.00-300.0 0 [facility] Urine RBC 0-2 #/HPF 0-2 [facility] Urine Squamous Epithelial Cells RARE #/LPF NONE/RARE [facility] Urine Transitional Epithelial Cells RARE #/LPF Abnormal NONE SEEN [facility] Urine WBC 0-2 #/HPF Abnormal NONE SEEN [facility] Nuclear dots nuclear Ab myles miroslava [Titer] in Serum by Immunofluorescenceon 04-16-2025 Nuclear dots nuclear Ab pattern IF (S) [Titer] [place] . [facility] Nuclear membrane pores nucle ar Ab pattern [Titer] in Serum by Immunofluorescenceon 04-16-2025 Nuclear membrane pores nuclear Ab pattern IF (S) [Titer] TN . [facility] PCNA extractable nuclear Ab [Titer] in Serum by Immunofluorescenceon 04-16-2025 PCNA extractable nuclear Ab IF (S) [Titer] [facility] . [facility] Proteinase 3 Ab [Units/volum e] in Serum by Immunoassayon 04-16-2025 Proteinase 3 Ab IA Qn (S) <0.2 units 0.0-0.9 [facility] Serum classic neutrophil cyt oplasmic antibody titer by immunofluorescenceon 04-16-2025 Neutrophil cytoplasmic Ab.classic IF (S) [Titer] <1:20 titer Neg:<1:20 [facility] Serum homogeneous pattern an tinuclear antibody (SATYA) titeron 04-16-2025 Homogenous nuclear Ab pattern (S) [Titer] [place] . [facility] Serum nuclear antibody titer on 04-16-2025 Nuclear Ab (S) [Titer] Positive Abnormal . [facility] Comment on above: Negative <1:80 Jez woods 1:80 Positive >1:80 Serum nucleolar pattern anti nuclear antibody (SATYA) titeron 04-16-2025 Nucleolar nuclear Ab pattern (S) [Titer] TNP . [facility] Serum or plasma anion gap de terminationon 04-16-2025 Anion gap [Moles/Vol] Serum or plasma an ion gap determination [facility] Anion gap [Moles/Vol] 12.6 mmol/L [facility] Serum or plasma complement C 3 measurement (mass/volume)on 04-16-2025 Complement C3 [Mass/Vol] 161 mg/dL 82-167 [facility] Serum or plasma complement C 4 measurement (mass/volume)on 04-16-2025 Complement C4 [Mass/Vol] 45 mg/dL Abnormal 12-38 [facility] Comment on above: Performed at: [address] [id number] Director: Yaw Shelby PhD, Phone: [phone] Serum speckled pattern antin uclear antibody (SATYA) titeron 04-16-2025 Speckled nuclear Ab pattern (S) [Titer] 1:320 Abnormal . [facility] Comment on above: Dense Fine Speckled pattern is noted. This pattern suggeststhe presence of DFS70 antibody which has a low prevalencein systemic autoimmune rheumatic diseases.ICAP nomenclature: AC-2,4,5,29 Urine Cultureon 04-16-2025 Bacteria identified Cx Nom (U) <9,000 colonies/ml mixed bacterial skin contaminants 2 Days PERFORMED BY: [place] [address] PATHOLOGIST LABORATORY CHEMICAL ASSISTANT LESLEY WHITMORE M.D. Normal [facility] Comment on above: Performed By: #### C UU #### [address] Urine cultureOrdered By: Dhaval Crowell on 04-16-2025 Bacteria identified Cx Nom (U) 2 Days [facility] Urine protein/creatinine rat ioon 04-16-2025 Protein/Creatinine (U) [Ratio] Urine protein/creatinine ratio [facility] Protein/Creatinine (U) [Ratio] 0.20 [facility] Urine Cultureon 04-14-2025 Bacteria identified Cx Nom (U) 50,000 colonies/ml mixed bacterial skin contaminants 2 Days PERFORMED BY: [place] [address] PATHOLOGIST LABORATORY CHEMICAL ASSISTANT LESLEY WHITMORE M.D. Normal [facility] Comment on above: Performed By: #### C UU #### [address] Urine cultureOrdered By: Adri Vazquez on 04-14-2025 Bacteria identified Cx Nom (U) Urine culture [facility] Bacteria identified Cx Nom (U) 2 Days [facility] Urine Cultureon 03-28-2025 Bacteria identified Cx Nom (U) Urine Culture Results 30,000 colonies/ml Mixed Bacterial Skin Contaminants 2 Days PERFORMED BY: [place] [address] PATHOLOGIST LABORATORY CHEMICAL ASSISTANT LIZA RUIZ M.D. Normal [facility] Comment on above: Performed By: #### C UU #### [address] [address] Urine cultureOrdered By: Zonia Quezada on 03-28-2025 Bacteria identified Cx Nom (U) Urine culture [facility] Bacteria identified Cx Nom (U) [facility] 36on 03-18-2025 36 Regarding lab result s from 03/03/2025: MD Megan Thomas MA I assume this blood test is after she started hydrochlorothiazide, her kidney function and potassium appear to be stable. Continue current management. Patient informed. [facility] 36on 02-24-2025 36 Patient returned my call. She hasn't started hydrochlorothiazide yet. She said the pharmacy had trouble obtaining it, and then she and her were out of town for a bit. She will start it today and have BMP next week. Order faxed to [facility]. [facility] 36 Regarding lab result s from 02/03/2025: MD Megan Thomas MA Creatinine is little higher after starting hydrochlorothiazide. Check with the patient if her shortness of breath and blood pressure are better. Spoke with . He said Margy was currently driving somewhere but he will have her return my call. Normal [facility] Pulmonary function teston [facility] No Panel Informationon 02-06 LOLA [...] [facility] Follow-Upon 01-21-2025 Follow-Up [id number] Sugar Oakes Kiran 1945 F Date Provider Department Center 01/21/2025 [id number] BUSH SILVIA [facility] Family History Problem Relation Age of Onset Cancer Mother Cancer Father Cancer Brother Family Status - Relation Status Age at Mother Father Brother Level of Service:02484 UT OFFICE/OUTPATIENT ESTABLISHED MOD MDM 30 MIN Reason for Visit and Comments: Post-Cath [731] Normal [facility] AFB CULTURE(CONCENTRATED)on 12-25-2024 Mycobacterium sp identified Org specific cx Nom (Unsp spec) SPECIMEN NOTES SPECIMEN 3 AFB SMEAR NO ACID FAST BACILLI (CONCENTRATED SMEAR) CULTURE RESULTS NO ACID FAST BACILLI ISOLATED IN 8 WEEKS Normal [facility] Comment on above: Performed By: #### 5 43-9 #### [facility] ([id number]) [address], [address] [place] [address] Mycobacterium sp identified Org specific cx Nom (Unsp spec) SPECIMEN NOTES SPECIMEN 1 AFB SMEAR NO ACID FAST BACILLI (CONCENTRATED SMEAR) CULTURE RESULTS NO ACID FAST BACILLI ISOLATED IN [address] [facility] Comment on above: Performed By: #### 5 43-9 #### [facility] ([id number]) [address] [place] [address] AND DIFFon 2024 BODY FLUID COMMENT Interpreta bob n-------- Normal [facility] Comment on above: Result Comment: Refe rence values for this fluid type are undefined, as fluid accumulation is considered abnormal. Performed By: #### B FCT #### [facility] ([id number]) [address], [address] [place] [address] FLUID CLARITY TURBID Normal [facility] Comment on above: Performed By: #### B FCT #### [facility] ([id number]) [address], [address] [place] [address] FLUID COLOR COLORLESS Normal [facility] Comment on above: Performed By: #### B FCT #### [facility] ([id number]) [address], [address] [place] [address] FLUID EOSINOPHIL 12 % Normal [facility] Comment on above: Performed By: #### B FCT #### [facility] ([id number]) [address], [address] [place] [address] FLUID LYMPHOCYTE 1 % Normal [facility] Comment on above: Performed By: #### B FCT #### [facility] ([id number]) [address], [address] [place] [address] FLUID NEUTROPHILS 85 % Normal [facility] Comment on above: Performed By: #### B FCT #### [facility] ([id number]) [address], [address] [place] [address] 129 /uL Normal [facility] Comment on above: Performed By: #### B FCT #### [facility] ([id number]) [address], [address] [place] [address] FLUID SPECIMEN TYPE BRONCHIAL WASHING Normal [facility] Comment on above: Result Comment: RIGH T LUNG, MIDDLE LOBE Performed By: #### B FCT #### [facility] ([id number]) [address], [address] [place] [address] MACROPHAGES 2 % Normal [facility] Comment on above: Performed By: #### B FCT #### [facility] ([id number]) [address], [address] [place] [address] 1065 /uL Normal [facility] Comment on above: Performed By: #### B FCT #### [facility] ([id number]) [address], [address] [place] [address] BODY FLUID COMMENT Interpreta bob n-------- Normal [facility] Comment [...] B FCT #### [facility] ([id number]) [address], [address] [place] [address] FLUID CLARITY TURBID Normal [facility] Comment on above: Performed By: #### B FCT #### [facility] ([id number]) [address], [address] [place] [address] FLUID COLOR RED Normal [facility] Comment on above: Performed By: #### B FCT #### [facility] ([id number]) [address], [address] [place] [address] FLUID EOSINOPHIL 3 % Normal [facility] Comment on above: Performed By: #### B FCT #### [facility] ([id number]) [address], [address] [place] [address] FLUID LYMPHOCYTE 13 % Normal [facility] Comment on above: Performed By: #### B FCT #### [facility] ([id number]) [address] [facility], [address] [place] [address] FLUID NEUTROPHILS 81 % Normal [facility] Comment on above: Performed By: #### B FCT #### [facility] ([id number]) [address], [address] [place] [address] [place] [address] /uL Normal [facility] Comment on above: Performed By: #### B FCT #### [facility] ([id number]) [address] [facility], [address] [place] [address] FLUID SPECIMEN TYPE BRONCHOALVEOLAR LAVAGE Normal [facility] Comment on above: Result Comment: RIGH T LUNG, MIDDLE LOBE Performed By: #### B FCT #### [facility] ([id number]) [address], [address] [place] [address] MACROPHAGES 3 % Normal [facility] Comment on above: Performed By: #### B FCT #### [facility] ([id number]) [address], [address] [place] [address] 4 /uL Normal [facility] Comment on above: Performed By: #### B FCT #### [facility] ([id number]) [address], [address] [place] [address] Cytologyon 12-25-2024 Cytology Normal [facility] Comment on above: Result Comment: [facility] [employer] [facility] [address] [place] [address] Cytology Consultation ADDENDUM UT Patient Name:MARGY OAKES:1945 (Age: 79)Gender:FTaken:12/25/2024Reported:12/29/2024 16:11Physician(s):Isidra Simmons MD ([phone])Copy To: Rec. #:[id number]: #[id number] Final Cytologic Diagnosis 1. Right middle lobe, [...] in an addendum. /12/26/2024 Interpretation performed at [facility], [address] [place] [address], License number: [id number].Electronically Signed Out By Min Acuna MD Additional [...] and Drug Administration (FDA) cleared (test/vendor): Confirm/ [employer], Primary Antibody: SP1 Progesterone Receptor: FDA cleared (test/vendor): Confirm/ [employer], Primary Antibody: 1E2 HER2: FDA approved (test/vendor): Pathway/ [employer], Primary Antibody: 4B5 Detection System (ER, PgR and/or HER2): [employer] ultraView [place] DAB Detection Kit (indirect biotin-free detection) Scoring [...] and Progesterone receptor Testing in Breast Cancer; [place] Society of Clinical Oncology/College of [employer]ian Pathologists Guideline Update. Arch Pathol Lab Med. doi:10.5858/arpa.7493-6754-LQ. 2. Erwin SAUCEDA, Diana CANTU, Aydee CARDENAS, et al. Human Epidermal Growth Factor Receptor 2 Testing in Breast Cancer; [place] Society of Clinical Oncology/College of Vincentian Pathologist Clinical Practice Guideline Focused Update. Arch Pathol Lab Med. doi: 10.5858/arpa.6461-2981-MU. Electronically Signed Out Min Acuna MD Addendum (PHS) Date Reported: 01/08/2025 Results of testing for HER2, Breast Tumor, FISH, Tissue dated 01/07/2025 are received from [facility], [address] [place] [address] and are as follows: Result Summary: Negative [...] 5 80-1 #### [facility] ([id number]) [address], [address] [place] [address] Fungus identified Cx Nom (Unsp spec) SPECIMEN NOTES SPECIMEN 1 FUNGAL SMEAR NO FUNGAL ELEMENTS SEEN ON CONCENTRATED SMEAR CULTURE RESULTS NO FUNGUS ISOLATED AFTER 4 WEEKS Normal [facility] Comment on above: Performed By: #### 5 80-1 #### [facility] ([id number]) [address], [address] [place] [address] LOWER RESPIRATORY CULTUREon 12-25-2024 Bacteria identified Respiratory culture Nom (Sput) SPECIMEN NOTES SPECIMEN 3 GRAM STAIN >25 WHITE BLOOD CELLS/LPF 0 to 1 SQUAMOUS EPITHELIAL CELLS/LPF 0 CILIATED EPITHELIAL CELLS/LPF NO ORGANISMS SEEN CULTURE RESULTS NO GROWTH 2 DAYS Normal [facility] Comment on above: Performed By: #### 6 24-7 #### [facility] ([id number]) [address], [address] [place] [address] Bacteria identified Respiratory culture Nom (Sput) SPECIMEN NOTES SPECIMEN 1 GRAM STAIN 0 to 1 WHITE BLOOD CELLS/LPF 0 SQUAMOUS EPITHELIAL CELLS/LPF 0 CILIATED EPITHELIAL CELLS/LPF NO ORGANISMS SEEN CULTURE RESULTS NO GROWTH 2 DAYS Normal [facility] Comment on above: Performed By: #### 6 24-7 #### [facility] ([id number]) [address] [place] [address], [address] [place] [address] Surgical Pathologyon 025 Surgical Pathology Normal [facility] Comment on above: Result Comment: [facility] [address] [place] [address] Surgical Pathology Consultation ADDENDUM [place] Patient Name:MARGY OAKES:1945 (Age: 79)Gender:FTaken:12/25/2024Reported:12/30/2024Physician(s):Isidra Simmons MD ([phone])Copy To: Rec. #:[id number]: #[id number] Final Pathologic Diagnosis Right lung, middle lobe nodule, needle biopsy: CARCINOMA, consistent with METASTATIC MAMMARY CARCINOMA. Comment The tumor is glandular and papillary. Immunostains were performed, with adequate controls, and reveal strong positivity for GATA3 and CK7 with negative TTF1, Napsin-A and p40. The morphology and immunophenotype are those of a metastatic mammary carcinoma. ER, UT and Her2 will be performed and reported [...] and Drug Administration (FDA) cleared (test/vendor): Confirm/ [employer], Primary Antibody: SP1 Progesterone Receptor: FDA cleared (test/vendor): Confirm/ [employer], Primary Antibody: 1E2 HER2: FDA approved (test/vendor): Pathway/ [employer], Primary Antibody: 4B5 Detection System (ER, PgR and/or HER2): [employer] ultraView [place] DAB Detection Kit (indirect biotin-free detection) Scoring [...] and Progesterone receptor Testing in Breast Cancer; [place] Society of Clinical Oncology/College of Vincentian Pathologists Guideline Update. Arch Pathol Lab Med. doi:10.5858/arpa.[id number]-PH. 2. Diana Camilo, Aydee CARDENAS, et al. Human Epidermal Growth Factor Receptor 2 Testing in Breast Cancer; [place] Society of Clinical Oncology/College of Vincentian Pathologist Clinical Practice Guideline Focused Update. Arch Pathol Lab Med. doi: 10.5858/arpa.6328-4015-MW. The tissue block is being sent for Her2 analysis by FISH. Electronically Signed Out Agustin Quinteros MD Addendum (PHS) Date Reported: 01/12/2025 Results of testing for HER2, Breast Tumor, FISH, Tissue dated 01/06/2025 are received from [facility], [address] [place] [address] and are as follows: Result Summary: Negative [...] 1. Erwin, et al., J Clin Oncol, 36(20):8914-1097, 2018 Result nuc umm(X44O3h5-2,OIJ7e2-3) HER2/D17Z1 ratio: 1.22 Average HER2 signals per cell: 3.6 Average D17Z1 signals per cell: 2.9 Reason for Referral: HER2 equivocal metastatic mammary carcinoma Source: Right lung Method: FISH using probes for HER2 (17q12) and a chromosome 17 centromere (D17Z1) control probe ([employer] Two technologists score signals in (more content not included)... APTTon 12-12-2024 aPTT Coag (PPP) [Time] 34 s Pr Friday System BASIC METABOLIC PANLon 12-12 Anion gap [Moles/Vol] 10 mmol/L Normal 5-15 [facility] Comment on above: Performed By: #### P INR, 41742-4 #### [facility] ([id number]) [address] [place] [address] #### CBCA, BMP #### [facility] ([id number]) [address] [facility], [address] [place] [address] Calcium [Mass/Vol] 9.6 mg/dL Normal 8.5-10.5 [facility] Comment on above: Performed By: #### P INR, 61429-0 #### [facility] ([id number]) [address] [place], [place] [address] #### CBCA, BMP #### [facility] ([id number]) [address] [facility], [address] [place] [address] Chloride [Moles/Vol] 102 mmol/L Normal 98-109 [facility] Comment on above: Performed By: #### P INR, 88326-0 #### [facility] ([id number]) [address] [place], [place] [address] #### CBCA, BMP #### [facility] ([id number]) [address] [facility], [address] [place] [address] CO2 [Moles/Vol] 28 mmol/L Normal 22-32 [facility] Comment on above: Performed By: #### P INR, 01297-2 #### [facility] ([id number]) [address] [place] [address] #### CBCA, BMP #### [facility] ([id number]) [address], [address] [place] [address] Creatinine [Mass/Vol] 1.18 mg/dL High 0.40-1.00 [facility] Comment on above: Result Comment: METH OD TRACEABLE TO IDMS STANDARD Performed By: #### P INR, 00126-1 #### [facility] ([id number]) [address] [place] [address] #### CBCA, BMP #### [facility] ([id number]) [address] [facility], [address] [place] [address] GFR/1.73 sq M.predicted among non-blacks MDRD (S/P/Bld) [Vol rate/Area] 47 mL/min/{1.73_m2} Low >59 [facility] Comment on above: Result Comment: Reported eGFR is based on the CKD-EPI 2020 equation that does not use a race coefficient. Performed By: #### P INR, 49927-4 #### [facility] ([id number]) [address] [place] [address] #### CBCA, BMP #### [facility] ([id number]) [address] [facility], [address] [place] [address] Glucose [Mass/Vol] 80 mg/dL Normal 65-99 [facility] Comment on above: Performed By: #### P INR, 98841-1 #### [facility] ([id number]) [address] [place] [address] #### CBCA, BMP #### [facility] ([id number]) [address] [facility], [address] [place] [address] Potassium [Moles/Vol] 4.6 mmol/L Normal 3.5-5.0 [facility] Comment on above: Performed By: #### P INR, 84416-5 #### [facility] ([id number]) [address] [place] [address] #### CBCA, BMP #### [facility] ([id number]) [address] [facility], [address] [place] [address] Sodium [Moles/Vol] 140 mmol/L Normal 134-146 [facility] Comment on above: Performed By: #### P INR, 91660-0 #### [facility] ([id number]) [address] [place] [address] #### CBCA, BMP #### [facility] ([id number]) [address] [facility], [address] [place] [address] Urea nitrogen [Mass/Vol] 16 mg/dL Normal 5-27 [facility] Comment on above: Performed By: #### P INR, 90472-2 #### [facility] ([id number]) [address] [place] [address] #### CBCA, BMP #### [facility] ([id number]) [address] [facility], [address] [place] [address] Basic Metabolic Panelon 11-14 Anion gap [Moles/Vol] 10 mmol/L 5 - 15 mmol/L [facility] Calcium [Mass/Vol] 9.6 mg/dL 8.5 - 10. 5 mg/dL [facility] Chloride [Moles/Vol] 102 mmol/L 98 - 10 9 mmol/L [facility] CO2 [Moles/Vol] 28 mmol/L 22 - 32 mmol/L [facility] Creatinine [Mass/Vol] 1.18 mg/dL High 0.40 - 1.00 mg/dL [facility] Comment on above: METHOD TRACEABLE TO IDDC STANDARD eGFR (CKD-EPI)non-race dependent 47 Low - PINF [facility] Comment on above: Reported eGFR is based on the CKD-EPI 2020 equation that does not use a race coefficient. Glucose [Mass/Vol] 80 mg/dL 65 - 99 mg/dL [facility] Interpretation and review of laboratory results Abnormal [facility] Potassium [Moles/Vol] 4.6 mmol/L 3.5 - 5.0 mmol/L [facility] Sodium [Moles/Vol] 140 mmol/L 134 - 146 mmol/L [facility] Urea nitrogen [Mass/Vol] 16 mg/dL 5 - 27 mg/dL [facility] CBC AND AUTO DIFFon 12-12-19 25 ABSOLUTE BASOPHIL 0.1 X10E9/L Normal 0.0-0.2 [facility] Comment on above: Performed By: #### P INR, 02694-7 #### [facility] ([id number]) [address] [place] [address] #### CBCA, BMP #### [facility] ([id number]) [address] [facility], [address] [place] [address] ABSOLUTE NEUTROPHIL 2.6 X10E9/L Normal 1.5-6.6 [facility] Comment on above: Performed By: #### P INR, 08094-3 #### [facility] ([id number]) [address] [place] [address] #### CBCA, BMP #### [facility] ([id number]) [address] [facility], [address] [place] [address] Basophils/100 WBC (Bld) 1.1 % Normal [facility] Comment on above: Performed By: #### P INR, 02663-5 #### [facility] ([id number]) [address] [place] [address] #### CBCA, BMP #### [facility] ([id number]) [address] [place] [address], [address] [place] [address] Eosinophils (Bld) [#/Vol] 0.3 10*3/uL Normal 0.0-0.4 [facility] Comment on above: Performed By: #### P INR, 74631-0 #### [facility] ([id number]) [address] [place], [place] [address] #### CBCA, BMP #### [facility] ([id number]) [address] [facility], [address] [place] [address] Eosinophils/100 WBC (Bld) 6.0 % Normal [facility] Comment on above: Performed By: #### P INR, 56541-3 #### [facility] ([id number]) [address] [place] [address] #### CBCA, BMP #### [facility] ([id number]) [address], [address] [place] [address] Erythrocyte distribution width (RBC) [Ratio] 13.5 % Normal 11.5-15.0 [facility] Comment on above: Performed By: #### P INR, 10573-6 #### [facility] ([id number]) [address] [place] [address] #### CBCA, BMP #### [facility] ([id number]) [address] [place] [address] Hematocrit (Bld) [Volume fraction] 33.9 % Low 35-47 [facility] Comment on above: Performed By: #### P INR, 90023-7 #### [facility] ([id number]) [address] [place] [address] #### CBCA, BMP #### [facility] ([id number]) [address], [address] [place] [address] Hemoglobin (Bld) [Mass/Vol] 11.6 g/dL Low 11.7-15.5 [facility] Comment on above: Performed By: #### P INR, 80564-5 #### [facility] ([id number]) [address] [place] [address] #### CBCA, BMP #### [facility] ([id number]) [address] [place] [address] Lymphocytes (Bld) [#/Vol] 1.7 10*3/uL Normal 1.0-3.5 [facility] Comment on above: Performed By: #### P INR, 87241-4 #### [facility] ([id number]) [address] [place] [address] #### CBCA, BMP #### [facility] ([id number]) [address] [place] [address] Lymphocytes/100 WBC (Bld) 33.4 % Normal [facility] Comment on above: Performed By: #### P INR, 27153-9 #### [facility] ([id number]) [address] [place] [address] #### CBCA, BMP #### [facility] ([id number]) [address], [address] [place] [address] MCH (RBC) [Entitic mass] 32.6 pg Normal 27-34 [facility] Comment on above: Performed By: #### P INR, 70200-3 #### [facility] ([id number]) [address] [place] [address] #### CBCA, BMP #### [facility] ([id number]) [address], [address] [place] [address] MCHC (RBC) [Mass/Vol] 34.3 g/dL Normal 32-36 [facility] Comment on above: Performed By: #### P INR, 08924-9 #### [facility] ([id number]) [address] [place] [address] #### CBCA, BMP #### [facility] ([id number]) [address], [address] [place] [address] MCV (RBC) [Entitic vol] 95 fL Normal 80-100 [facility] Comment on above: Performed By: #### P INR, 60915-3 #### [facility] ([id number]) [address] [place] [address] #### CBCA, BMP #### [facility] ([id number]) [address] [facility], [address] [place] [address] Monocytes (Bld) [#/Vol] 0.4 10*3/uL Normal 0-0.9 [facility] Comment on above: Performed By: #### P INR, 49641-9 #### [facility] ([id number]) [address] [place] [address] #### CBCA, BMP #### [facility] ([id number]) [address], [address] [place] [address] Monocytes/100 WBC (Bld) 8.3 % Normal [facility] Comment on above: Performed By: #### P INR, 44527-8 #### [facility] ([id number]) [address] [place] [address] #### CBCA, BMP #### [facility] ([id number]) [address], [address] [place] [address] Neutrophils/100 WBC (Bld) 51.2 % Normal [facility] Comment on above: Performed By: #### P INR, 08056-4 #### [facility] ([id number]) [address] [place] [address] #### CBCA, BMP #### [facility] ([id number]) [address] [place] [address] Platelet mean volume (Bld) [Entitic vol] 7.6 fL Normal 7-12 [facility] Comment on above: Performed By: #### P INR, 96752-6 #### [facility] ([id number]) [address] [place] [address] #### CBCA, BMP #### [facility] ([id number]) [address] [place] [address] Platelets (Bld) [#/Vol] 244 10*3/uL Normal 150-450 [facility] Comment on above: Performed By: #### P INR, 44634-8 #### [facility] ([id number]) [address] [place] [address] #### CBCA, BMP #### [facility] ([id number]) [address] [place] [address], [address] [place] [address] RBC COUNT 3.56 X10E12/L Low 3.80-5.20 [facility] Comment on above: Performed By: #### P INR, 66061-1 #### [facility] ([id number]) [address] [place] [address] #### CBCA, BMP #### [facility] ([id number]) [address] [place] [address], [address] [place] [address] WBC (Bld) [#/Vol] 5.0 10*3/uL Normal 4.0-11.0 [facility] Comment on above: Performed By: #### P INR, 05844-8 #### [facility] ([id number]) [address] [place] [address] #### CBCA, BMP #### [facility] ([id number]) [address] [place] [address], [address] [place] [address] CBC auto differentialon -3 Basophils (Bld) [#/Vol] 0.1 10*3/uL [facility] Basophils/100 WBC (Bld) 1.1 % [facility] Eosinophils (Bld) [#/Vol] 0.3 10*3/uL [facility] Eosinophils/100 WBC (Bld) 6 % [facility] Erythrocyte distribution width (RBC) [Ratio] 13.5 % 11.5 - 15.0 % [facility] Hematocrit (Bld) [Volume fraction] 33.9 % Low 35 - 47 % [facility] Hemoglobin (Bld) [Mass/Vol] 11.6 g/dL Low 11.7 - 15.5 g/dL [facility] Interpretation and review of laboratory results Abnormal [facility] Lymphocytes (Bld) [#/Vol] 1.7 10*3/uL [facility] Lymphocytes/100 WBC (Bld) 33.4 % [facility] MCH (RBC) [Entitic mass] 32.6 pg 27 - 34 pg [facility] MCHC (RBC) [Mass/Vol] 34.3 g/dL 32 - 36 g/dL [facility] MCV (RBC) [Entitic vol] 95 fL 80 - 100 fL [facility] Monocytes (Bld) [#/Vol] 0.4 10*3/uL [facility] Monocytes/100 WBC (Bld) 8.3 % P [facility] Neutrophils (Bld) [#/Vol] 2.6 10*3/uL [facility] Neutrophils/100 WBC (Bld) 51.2 % [facility] Platelet mean volume (Bld) [Entitic vol] 7.6 fL 7 - 12 fL [facility] Platelets (Bld) [#/Vol] 244 10*3/uL [facility] RBC (Bld) [#/Vol] 3.56 10*6/uL [facility] WBC corrected for nucl RBC Auto (Bld) [#/Vol] 5 [facility] CT ION CHEST WO CONTon 12-12 CT ION CHEST WO CONT CT ION CHEST WO CON T CT ION CHEST WO CONT CLINICAL INDICATION: Pulmonary nodules/lesions, multiple COMPARISON: CT chest 11/14/2024 TECHNIQUE: Noncontrast CT chest was performed. Coronal and sagittal reformatted images were generated and reviewed. Automated exposure control was utilized. Computer aided detection for pulmonary nodules was performed utilizing [employer] software. FINDINGS: Lower Neck & Thyroid: Unremarkable. [...] Carlos MD on 12/12/2024 9:50 AM Normal [facility] No Panel Informationon 12-12 [facility] PROTIME AND INRon 12-12-2024 INR Coag (PPP) [Relative time] 1.0 {INR} Normal 0.8-1.1 [facility] Comment on above: Performed By: #### P INR, 90179-4 #### [facility] ([id number]) [address] [place] [address] #### KADEN OWEN #### [facility] ([id number]) [address] [place] [address], [address] [place] [address] PT Coag (PPP) [Time] 11.3 s Normal 9.8-13.2 [facility] Comment on above: Performed By: #### P INR, 59467-3 #### [facility] ([id number]) [address] [place] [address] #### CBCA, BMP #### [facility] ([id number]) [address] [facility], [address] [place] [address] Protime & INRon 12-12-2024 INR Coag (PPP) [Relative time] 1 {INR} [facility] PT Coag (PPP) [Time] 11.3 s [facility] aPTT Coag (PPP) [Time]on aPTT Coag (Bld) [Time] 34 s Normal 26-37 [facility] Comment on above: Performed By: #### P INR, 92048-2 #### [facility] ([id number]) [address] [place] [address] #### LEXIE, BMP #### [facility] ([id number]) [address] [facility], [address] [place] [address] HPon 12-09-2024 HP --- Attestation signed by Kimmy Bush MD at 12/09/2024 9:23 AM I personally saw and examined the patient on the same date of service as resident/fellow Dr howard. I discussed the findings and therapeutic plan with the resident/fellow Dr Howard. I agree with the documentation, except for any edits/updates below. Teaching Physician's Revisions: None Kimmy Bush MD, [facility] H&P reviewed. The patient was examined and there are no changes to the H&P. [facility] NURSNOTEdiane 12-09-2024 NURSNOTE RN educated pt on d/ [...] off of unit with all of belongings. [facility] ALT No additional P-5'-P [Ca talytic activity/Vol]on 11-13-2024 ALT [Catalytic activity/Vol] 15 U/L Normal 0-31 [facility] Comment on above: Performed By: #### C BCA, 1744-2, 1920-06, [facility], 80984-9 #### [facility] ([id number]) [address], [address] [place] [address] Kaley 11-13-2024 AST [Catalytic activity/Vol] 18 U/L Normal 0-41 [facility] Comment on above: Performed By: #### C BCA, 1744-2, 1920-06, [facility], 72377-6 #### [facility] ([id number]) [address], [address] [place] [address] BASIC METABOLIC PANLon 11-13 Anion gap [Moles/Vol] 7 mmol/L Normal 5-15 [facility] Comment on above: Performed By: #### 6 30-4 #### [facility] ([id number]) [address], [address] [place] [address] Calcium [Mass/Vol] 9.7 mg/dL Normal 8.5-10.5 [facility] Comment on above: Performed By: #### 6 30-4 #### [facility] ([id number]) [address], [address] [place] [address] Chloride [Moles/Vol] 102 mmol/L Normal 98-109 [facility] Comment on above: Performed By: #### 6 30-4 #### [facility] ([id number]) [address], [address] [place] [address] CO2 [Moles/Vol] 32 mmol/L Normal 22-32 [facility] Comment on above: Performed By: #### 6 30-4 #### [facility] ([id number]) [address], [address] [place] [address] Creatinine [Mass/Vol] 1.31 mg/dL High 0.40-1.00 [facility] Comment on above: Result Comment: METH OD TRACEABLE TO IDMS STANDARD Performed By: #### 6 30-4 #### [facility] ([id number]) [address], [address] [place] [address] GFR/1.73 sq M.predicted among non-blacks MDRD (S/P/Bld) [Vol rate/Area] 41 mL/min/{1.73_m2} Low >59 [facility] Comment on above: Result Comment: Reported eGFR is based on the CKD-EPI 2020 equation that does not use a race coefficient. Performed By: #### 6 30-4 #### [facility] ([id number]) [address], [address] [place] [address] Glucose [Mass/Vol] 98 mg/dL Normal 65-99 [facility] Comment on above: Performed By: #### 6 30-4 #### [facility] ([id number]) [address], [address] [place] [address] Potassium [Moles/Vol] 5.3 mmol/L High 3.5-5.0 [facility] Comment on above: Performed By: #### 6 30-4 #### [facility] ([id number]) [address], [address] [place] [address] Sodium [Moles/Vol] 141 mmol/L Normal 134-146 [facility] Comment on above: Performed By: #### 6 30-4 #### [facility] ([id number]) [address], [facility] [address] [place] [address] Urea nitrogen [Mass/Vol] 19 mg/dL Normal 5-27 [facility] Comment on above: Performed By: #### 6 30-4 #### [facility] ([id number]) [address], [facility] [address] [place] [address] CBC AND AUTO DIFFon 11-13-19 25 ABSOLUTE BASOPHIL 0.0 X10E9/L Normal 0.0-0.2 [facility] Comment on above: Performed By: #### Marciano URENA, 1743-12, 1920-06, BMP, 77433-9 #### [facility] ([id number]) [address], [facility] [address] [place] [address] ABSOLUTE NEUTROPHIL 2.1 X10E9/L Normal 1.5-6.6 [facility] Comment on above: Performed By: #### Marciano URENA, 1743-12, 1920-06, BMP, 36812-0 #### [facility] ([id number]) [address] [address] [place] [address] Basophils/100 WBC (Bld) 0.5 % Normal [facility] Comment on above: Performed By: #### Marciano URENA, 1743-12, 1920-06, BMP, 83598-5 #### [facility] ([id number]) [address] [address] [place] [address] Eosinophils (Bld) [#/Vol] 0.3 10*3/uL Normal 0.0-0.4 [facility] Comment on above: Performed By: #### Marciano URENA, 1743-12, 1920-06, BMP, 07862-6 #### [facility] ([id number]) [address], [address] [place] [address] Eosinophils/100 WBC (Bld) 5.6 % Normal [facility] Comment on above: Performed By: #### Marciano URENA, 1743-12, 1920-06, BMP, 22610-4 #### [facility] ([id number]) [address], [facility] [address] [place] [address] Erythrocyte distribution width (RBC) [Ratio] 13.5 % Normal 11.5-15.0 [facility] Comment on above: Performed By: #### Marciano URENA, 1743-12, 1920-06, BMP, 90768-1 #### [facility] ([id number]) [address] [address] [place] [address] Hematocrit (Bld) [Volume fraction] 34.0 % Low 35-47 [facility] Comment on above: Performed By: #### Marciano URENA, 1743-12, 1920-06, BMP, 93542-7 #### [facility] ([id number]) [address], [facility] [address] [place] [address] Hemoglobin (Bld) [Mass/Vol] 11.4 g/dL Low 11.7-15.5 [facility] Comment on above: Performed By: #### Marciano URENA, 1743-12, 1920-06, BMP, 98277-5 #### [facility] ([id number]) [address] [address] [place] [address] Lymphocytes (Bld) [#/Vol] 1.8 10*3/uL Normal 1.0-3.5 [facility] Comment on above: Performed By: #### Marciano URENA, 1743-12, 1920-06, BMP, 63567-7 #### [facility] ([id number]) [address] [address] [place] [address] Lymphocytes/100 WBC (Bld) 38.8 % Normal [facility] Comment on above: Performed By: #### Marciano URENA, 1743-12, 1920-06, BMP, 78311-1 #### [facility] ([id number]) [address], [address] [place] [address] MCH (RBC) [Entitic mass] 31.9 pg Normal 27-34 [facility] Comment on above: Performed By: #### Marciano URENA, 1743-12, 1920-06, BMP, 90472-1 #### [facility] ([id number]) [address], [facility] [address] [place] [address] MCHC (RBC) [Mass/Vol] 33.5 g/dL Normal 32-36 [facility] Comment on above: Performed By: #### Marciano URENA, 1743-12, 1920-06, BMP, 52466-2 #### [facility] ([id number]) [address], [address] [place] [address] MCV (RBC) [Entitic vol] 95 fL Normal 80-100 [facility] Comment on above: Performed By: #### Marciano URENA, 1743-12, 1920-06, BMP, 68764-8 #### [facility] ([id number]) [address], [address] [place] [address] Monocytes (Bld) [#/Vol] 0.4 10*3/uL Normal 0-0.9 [facility] Comment on above: Performed By: #### Marciano URENA, 1743-12, 1920-06, BMP, 60679-0 #### [facility] ([id number]) [address], [facility] [address] [place] [address] Monocytes/100 WBC (Bld) 9.4 % Normal [facility] Comment on above: Performed By: #### Marciano URENA, 1743-12, 1920-06, BMP, 14002-3 #### [facility] ([id number]) [address], [facility] [address] [place] [address] Neutrophils/100 WBC (Bld) 45.7 % Normal [facility] Comment on above: Performed By: #### Marciano URENA, 1743-2, 1920-06, BMP, 28156-4 #### [facility] ([id number]) [address], [facility] [address] [place] [address] Platelet mean volume (Bld) [Entitic vol] 7.8 fL Normal 7-12 [facility] Comment on above: Performed By: #### Marciano URENA, 1743-, 1920-06, BMP, 48577-2 #### [facility] ([id number]) [address], [facility] [address] [place] [address] Platelets (Bld) [#/Vol] 261 10*3/uL Normal 150-450 [facility] Comment on above: Performed By: #### Marciano URENA, 1743-12, 1920-06, BMP, 33537-6 #### [facility] ([id number]) [address] [address] [place] [address] RBC COUNT 3.57 X10E12/L Low 3.80-5.20 [facility] Comment on above: Performed By: #### Marciano URENA, 1743-12, 1920-06, BMP, 12185-6 #### [facility] ([id number]) [address], [facility] [address] [place] [address] WBC (Bld) [#/Vol] 4.5 10*3/uL Normal 4.0-11.0 [facility] Comment on above: Performed By: #### Marciano URENA, 1743-2, 1920-06, BMP, 81960-9 #### [facility] ([id number]) [address] [address] [place] [address] Lipid 1996 panelon 5 Cholesterol [Mass/Vol] 215 mg/dL High 150-200 Pr [facility] Comment on above: Performed By: #### 6 30-4 #### [facility] ([id number]) [address], [address] [place] [address] Cholesterol in HDL [Mass/Vol] 57 mg/dL Normal >39 [facility] Comment on above: Result Comment: HDL <40 mg/dL - High Risk HDL > or = 40mg/dL- Desirable HDL >60 mg/dL - Negative Risk Performed By: #### 6 30-4 #### [facility] ([id number]) [address], [address] [place] [address] Cholesterol in LDL [Mass/Vol] 99 mg/dL Normal <130 [facility] Comment on above: Result Comment: LDL <100 mg/dL - Desirable LDL >160 mg/dL - High Risk Performed By: #### 6 30-4 #### [facility] ([id number]) [address], [address] [place] [address] Cholesterol in VLDL [Mass/Vol] 59 mg/dL High 0-30 [facility] Comment on above: Performed By: #### 6 30-4 #### [facility] ([id number]) [address], [address] [place] [address] CHOLESTEROL:HDL 3.8 Normal 1.0-5.0 [facility] Comment on above: Performed By: #### 6 30-4 #### [facility] ([id number]) [address], [address] [place] [address] Triglyceride [Mass/Vol] 297 mg/dL High 27-150 P [facility] Comment on above: Performed By: #### 6 30-4 #### [facility] ([id number]) [address] [facility], [address] [place] [address] [facility] 11-10-2024 [facility] Cardiology Clinic Note Reason for cardiology [...] above, denies orthopnea/PND, lower extremity edema, palpitations, lightheadedness/dizzine ss. RESPIRATORY: Denies SOB, coughing, wheezing GI: Denies [...] 11/10/2024 s (more content not included)... Normal [facility] Office Visiton 11-10-2024 Follow-up visit [id number] Sugar Oakes 1945 F Date Provider Department Center 11/10/2024 [id number] BUSH [facility] Myranda [facility] Family History Problem Relation Age of Onset Cancer Mother Cancer Father Cancer Brother Family Status - Relation Status Age at Mother Father Brother Level of Service:86141 [place] OFFICE/OUTPATIENT [facility] 60 MINUTES Reason for Visit and Comments: Hypertension [559556] Chest Pain [973985] - Sometimes gets chest pain at rest. Hyperlipidemia [182] Coronary Artery Disease [187] - Does not take daily aspirin. She does ride her stationary bike about 10 miles every day. Shortness of Breath [] - Gets very SOB with exertion and has to stop and take a rest at times. Palpitations [] - A little bit Dizziness [] Normal [facility] No Panel Informationon 08-27 Lavinia Herring NP 08/28/2024 11:52 AM L Inj/Asp: R knee on 08/27/2024 12:21 PM Indications: pain Details: 21 G needle, anterolateral approach Medications: 40 mg methylPREDNISolone acetate 40 MG/ML Outcome: tolerated well, no immediate complications Site cleaned with isopropyl alcohol Procedure, treatment alternatives, risks and benefits explained, specific risks discussed. Consent was given by the patient. [facility] K[facility] - right 1 or 2 Views on 08-27-2024 Imaging Result: 08/27/2024: Standing AP and LAT of the right knee demonstrates lateral joint space narrowing with valgus alignment. There is sclerosis noted to medial and lateral tibial plateau. Impression: Left knee osteoarthritis with valgus alignment. Lavinia Herring [employer] [facility] Radiology Study observation (narrative) [facility] XR Knee - right 1 or 2 Views Ordered By: Jr. Jeffries on 08-27-2024 [facility] Work Phone: CT BRAIN WO CONTon CT [...] Alberto MD on 07/19/2024 10:32 PM Normal [facility] CT CERVICAL SPINE WO CONTon [...] Stephens MD on 07/19/2024 10:44 PM Normal [facility] XR HIP RT 2-3 VIEWS [...] Stephens MD on 07/19/2024 10:42 PM Normal [facility] XR RIBS RT 3 VWS [...] Alberto MD on 07/19/2024 11:59 PM Normal [facility] URINALYSISon 06-10-2024 Bilirubin Ql (U) Negative Normal NEG [facility] Comment on above: Performed By: #### U A #### [facility] ([id number]) [facility] [facility], [address] [place] [address] BLOOD/HGB Negative Normal NEG [facility] Comment on above: Performed By: #### U A #### [facility] ([id number]) [address] [place] [address], [address] [place] [address] Color (U) YELLOW Normal YELLOW [facility] Comment on above: Performed By: #### U A #### [facility] ([id number]) [address] [place] [address], [address] [place] [address] Glucose Ql (U) Negative Normal NEG [facility] Comment on above: Performed By: #### U A #### [facility] ([id number]) [address] [place] [address], [address] [place] [address] Ketones Ql (U) Negative Normal NEG [facility] Comment on above: Performed By: #### U A #### [facility] ([id number]) [address] [place] [address], [address] [place] [address] Leukocyte esterase Test strip Ql (U) MODERATE Abnormal NEG [facility] Comment on above: Performed By: #### U A #### [facility] ([id number]) [address] [place] [address], [address] [place] [address] MUCOUS PRESENT Abnormal NONE [facility] Comment on above: Performed By: #### U A #### [facility] ([id number]) [address], [address] [place] [address] Nitrite Ql (U) Negative Normal NEG [facility] Comment on above: Performed By: #### U A #### [facility] ([id number]) [address], [address] [place] [address] pH (U) 6.0 [pH] Normal 5.0-8.5 [facility] Comment on above: Performed By: #### U A #### [facility] ([id number]) [address], [address] [place] [address] Protein Ql (U) Negative Normal NEG [facility] Comment on above: Performed By: #### U A #### [facility] ([id number]) [address], [address] [place] [address] R.B.CELLS 1 /hpf Normal 0-5 [facility] Comment on above: Performed By: #### U A #### [facility] ([id number]) [address], [address] [place] [address] Specific gravity (U) [Rel density] 1.009 Normal 1.003-1.035 [facility] Comment on above: Performed By: #### U A #### [facility] ([id number]) [address], [address] [place] [address] SQUAMOUS EPITHELIUM 1 /hpf Normal 0-5 [facility] Comment on above: Performed By: #### U A #### [facility] ([id number]) [address], [address] [place] [address] TURBIDITY CLEAR Normal CLEAR [facility] Comment on above: Performed By: #### U A #### [facility] ([id number]) [address], [address] [place] [address] Urobilinogen (U) [Mass/Vol] mg/dL Normal <1.1 [facility] Comment on above: Performed By: #### U A #### [facility] ([id number]) [address], [address] [place] [address] W.B.CELLS 3 /hpf Normal 0-5 [facility] Comment on above: Performed By: #### U A #### [facility] ([id number]) [address], [address] [place] [address] URINE CULTUREon 06-10-2024 Bacteria identified Cx Nom (U) CULTURE RESULTS <10,000 ORGANISMS/ML NORMAL URO GENITAL CLAUDY Normal [facility] Comment on above: Performed By: #### 6 30-4 #### [facility] ([id number]) [address], [address] [place] [address] XR ANKLE ABHISHEK MIN 3 VIEWSon 02-01-2022 XR ANKLE ABHISHEK MIN 3 VIEWS [...] by: RAMSES GONGORA Date: 2022-02-01 11:16 Normal [facility] CT ANKLE RT WO CONon 022 CT [...] by: NORBERTO IVAN Date: 2021-12-19 11:38 Normal [facility] XR ANKLE ABHISHEK MIN 3 VIEWSon 1 [...] NORBERTO IVAN Date: 2021-11-02 16:25 Normal [facility] Cardiovascular Lab Reporton 05-30-2019 Cardiovascular Lab Report [facility] Patient Name: Margy Oakes [facility] MR #: [id number] Physician: Pepe Barraza of [facility] Medicine Service Date: 05/29/2019 Division of Birthdate: 1945 Cardiology Room #: Adult Cardiovascular Services [facility] [address] [facility]. [place] [address] Cardiovascular Laboratory Report INDICATION: The patient is [...] signed informed consent. 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 The right groin area was prepped and draped in usual fashion. Using micropuncture technique, the right common femoral artery was accessed. The inner cannula was advanced. Limited femoral angiography was performed followed by upsizing to a 6-Stateless x 11 cm sheath. Access was obtained using the same technique in the right common femoral vein and a 6-Stateless x 11 cm sheath was placed. A 6-Stateless Pena catheter was used for right heart catheterization with measurement of pressures and calculation of cardiac output using the estimated Anila method. Pena catheter was removed. Bilateral selective coronary angiography was then performed using 6-Stateless JL4 and JR4 diagnostic catheters. Catheters were removed. Procedure was concluded. The right femoral arteriotomy was managed with a 6-Stateless Angio-Seal device with good hemostasis. The access [...] Chavez M.D. Date Trans: 05/29/2019 10:55 P/sanaz [id number] cc: Lucia Esteban M.D. [address] [facility] [address] [facility] Otheron 01-18-1999 CONVERTED ELECTRONIC SIGNATURE JAYE JOHNSTON ZABALA, SOLDERING INSPECTOR (Electronic signature on file) Final Signed Out: 01/18/1999 16:25 [facility] CONVERTED FINAL DIAGNOSIS SPECIMEN ADEQUACY SATISFACTORY FOR CYTOLOGIC EVALUATION BUT LIMITED BY: NO ENDOCERVICAL COMPONENTS. GENERAL CATEGORIZATION WITHIN NORMAL LIMITS HORMONAL EVALUATION HORMONAL PATTERN COMPATIBLE WITH AGE AND HISTORY [facility] CONVERTED ORDERING PROVIDER Ordering Provider: SHEA REYES [facility] CONVERTED PAP DISCLAIMER The Pap test serves as a screening tool for early detection of cervical cancer. The Pap test does not represent a final diagnostic test for cervical cancer. Furthermore, the Pap test was not designed to screen for other malignancies (endometrial, ovarian cancer, etc....). False negatives and false positives have occurred. If clinically indicated, further patient evaluation is recommended. [facility] Vital Signs Date Time Vital Sign Value Performing Clinician So pineda 07-20-2025 14:35-0400 Diastolic blood pressure 57 mm[Hg] Shyam Crowell MD Work Phone: [facility] 07-20-2025 14:35-0400 Heart rate 57 /min Shyam Crowell MD Work Phone: [facility] 07-20-2025 14:35-0400 Respiratory rate 16 /min Shyam Crowell MD Work Phone: [facility] 07-20-2025 14:35-0400 SaO2% (BldA) [Mass fraction] 96 % Shyam Crowell MD Work Phone: [facility] 07-20-2025 14:35-0400 Systolic blood pressure 143 mm[Hg] Shyam Crowell MD Work Phone: [facility] 07-20-2025 12:47-0400 Body height 157.48 cm Shyam Crowell MD Work Phone: [facility] [facility] 07-20-2025 12:47-0400 Body weight 81.19 kg Shyam Crowell MD Work Phone: [facility] 07-01-2025 13:16-0400 Body height 157.48 cm Lucia Esteban MD Work Phone: [facility] 07-01-2025 13:16-0400 Body temperature 97.7 [degF] Lucia Esteban MD Work Phone: [facility] 07-01-2025 13:16-0400 Body weight 79.2 kg Lucia Esteban MD Work Phone: [facility] 07-01-2025 13:16-0400 Diastolic blood pressure 71 mm[Hg] Lucia Esteban MD Work Phone: [facility] 07-01-2025 13:16-0400 Heart rate 60 /min Lucia Esteban MD Work Phone: [facility] 07-01-2025 13:16-0400 Respiratory rate 18 /min Lucia Esteban MD Work Phone: [facility] 07-01-2025 13:16-0400 SaO2% (BldA) [Mass fraction] 94 % Lucia Esteban MD Work Phone: [facility] 07-01-2025 13:16-0400 Systolic blood pressure 153 mm[Hg] Lucia Esteban MD Work Phone: [facility] 07-01-2025 12:55-0400 Body height 157.48 cm Lucia Esteban MD Work Phone: [facility] 07-01-2025 12:55-0400 Body weight 80.73 kg Lucia Esteban MD Work Phone: [facility] 07-01-2025 12:55-0400 Diastolic blood pressure 80 mm[Hg] Lucia Esteban MD Work Phone: [facility] 07-01-2025 12:55-0400 Heart rate 66 /min Lucia Esteban MD Work Phone: [facility] 07-01-2025 12:55-0400 Respiratory rate 18 /min Lucia Esteban MD Work Phone: [facility] 07-01-2025 12:55-0400 SaO2% (BldA) [Mass fraction] 97 % Lucia Esteban MD Work Phone: [facility] 07-01-2025 12:55-0400 Systolic blood pressure 149 mm[Hg] Lucia Esteban MD Work Phone: [facility] 06-04-2025 08:36-0400 Body height 157.48 cm Lucia Esteban MD Work Phone: [facility] 06-04-2025 08:36-0400 Body mass index (BMI) [Ratio] 32.2 kg/m2 Lucia Esteban MD Work Phone: [facility] 06-04-2025 08:36-0400 Body temperature 97 [degF] Lucia Esteban MD Work Phone: [facility] 06-04-2025 08:36-0400 Body weight 80 kg Lucia Esteban MD Work Phone: [facility] 06-04-2025 08:36-0400 Diastolic blood pressure 68 mm[Hg] Lucia Esteban MD Work Phone: [facility] 06-04-2025 08:36-0400 Heart rate 55 /min Lucia Esteban MD Work Phone: [facility] 06-04-2025 08:36-0400 Respiratory rate 18 /min Lucia Esteban MD Work Phone: [facility] 06-04-2025 08:36-0400 Systolic blood pressure 127 mm[Hg] Lucia Esteban MD Work Phone: [facility] 05-21-2025 14:25-0400 Body height 152.4 cm [facility]-21-2025 14:25-0400 Body mass index (BMI) [Ratio] 33.98 kg/m2 María Thapa DO Work Phone: [facility] 05-21-2025 14:25-0400 Body weight 78.93 kg María Thapa DO Work Phone: [facility] 05-21-2025 14:25-0400 Diastolic blood pressure 68 mm[Hg] María Thapa DO Work Phone: [facility] 05-21-2025 14:25-0400 Heart rate 60 /min María Thapa DO Work Phone: [facility] 05-21-2025 14:25-0400 SaO2% (BldA) [Mass fraction] 96 % María Thapa DO Work Phone: [facility] 05-21-2025 14:25-0400 Systolic blood pressure 124 mm[Hg] María Thapa DO Work Phone: [facility] 04-16-2025 14:58-0400 Body height 157.48 cm Stefani uQezada MD Work Phone: [facility] 04-16-2025 14:58-0400 Body mass index (BMI) [Ratio] 31.8 kg/m2 Stefani Quezada MD Work Phone: [facility] 04-16-2025 14:58-0400 Body temperature 96.9 [degF] Stefani Quezada MD Work Phone: [facility] 04-16-2025 14:58-0400 Body weight 78.98 kg Stefani Quezada MD Work Phone: [facility] 04-16-2025 14:58-0400 Diastolic blood pressure 70 mm[Hg] Stefani Quezada MD Work Phone: [facility] 04-16-2025 14:58-0400 Heart rate 56 /min Stefani Quezada MD Work Phone: [facility] 04-16-2025 14:58-0400 Respiratory rate 18 /min Stefani Quezada MD Work Phone: [facility] 04-16-2025 14:58-0400 SaO2% (BldA) [Mass fraction] 96 % Stefani Quezada MD Work Phone: [facility] 04-16-2025 14:58-0400 Systolic blood pressure 144 mm[Hg] Stefani Quezada MD Work Phone: [facility] 02-19-2025 10:51-0400 Body height 152.4 cm María Thapa DO Work Phone: [facility] [email or web address] [facility] 02-19-2025 10:51-0400 Body mass index (BMI) [Ratio] 34.98 kg/m2 María Thapa DO Work Phone: [facility] [employer] [facility] 02-19-2025 10:51-0400 Body weight 81.24 kg María Thapa DO Work Phone: [facility] 02-19-2025 10:51-0400 Diastolic blood pressure 50 mm[Hg] María Thapa DO Work Phone: [facility] 02-19-2025 10:51-0400 Heart rate 60 /min María [facility]apa [facility] 02-19-2025 10:51-0400 SaO2% (BldA) [Mass fraction] 98 % María Thapa DO Work Phone: [facility] 02-19-2025 10:51-0400 Systolic blood pressure 132 mm[Hg] María Thapa DO Work Phone: [facility] [employer] [facility] 12-22-2024 09:09-0500 Body height 157.5 cm [facility] 3 [facility] [employer] [facility] 12-22-2024 09:09-0500 Body mass index (BMI) [Ratio] 32.92 kg/m2 [facility] 3 [facility] [employer] [facility] 12-22-2024 09:09-0500 Body weight 81.65 kg [facility] 3 [facility] [employer] [facility] 12-11-2024 12:08-0500 Body height 157.5 cm María Thapa DO Work Phone: [facility] 12-11-2024 12:08-0500 Body mass index (BMI) [Ratio] 33 kg/m2 María Thapa DO Work Phone: [facility] [employer] [facility] 12-11-2024 12:08-0500 Body weight 81.83 kg María Thapa DO Work Phone: [facility] 12-11-2024 12:08-0500 Diastolic blood pressure 49 mm[Hg] María Thapa DO Work Phone: [facility] [employer] [facility] 12-11-2024 12:08-0500 Heart rate 53 /min María Thapa DO Work Phone: [facility] [employer] [facility] 12-11-2024 12:08-0500 SaO2% (BldA) [Mass fraction] 99 % María Thapa DO Work Phone: [facility] [employer] [facility] 12-11-2024 12:08-0500 Systolic blood pressure 123 mm[Hg] María Thapa DO Work Phone: [facility] [employer] [facility] 01-11-2024 09:17-0500 Body height 157.5 cm Ignacio Augustine MD Work Phone: [facility] [employer] [facility] 01-11-2024 09:17-0500 Body mass index (BMI) [Ratio] 32.19 kg/m2 Ignaico Augustine MD Work Phone: [facility] 01-11-2024 09:17-0500 Body weight 79.83 kg Ignacio Augustine MD Work Phone: [facility] Encounters Encounter Date Encounter Type Care Provider Facility Start: 07-20-2025 End: 07-20-2025 ambulatory Nicky L Ly Facility:[facility] Start: 07-20-2025 Non-patient / Non-visit Nicky L Ly DO -[facility] Work Phone: Start: 07-01-2025 End: 07-01-2025 Emergency department patient visit Lucia Esteban MD Work Phone: -Emergency Room Work Phone: Start: 07-01-2025 End: 07-01-2025 Admission to same day surgery center Nicky Gaytan DO -[facility] Work Phone: Start: 07-01-2025 End: 07-01-2025 ambulatory Lucia Esteban MD Work Phone: [facility] Work Phone: Start: 06-16-2025 End: 06-16-2025 ambulatory Lucia Esteban MD Work Phone: [facility] Work Phone: Start: 06-16-2025 End: 06-16-2025 Departed Referred Natasha Vazquez MD -[facility] Start: 06-10-2025 End: 06-10-2025 ambulatory [facility] Start: 06-04-2025 End: 06-04-2025 ambulatory Lucia Esteban MD Work Phone: [facility] Work Phone: Start: 06-04-2025 End: 06-04-2025 Patient encounter procedure Shyam Crowell MD -[facility] Work Phone: Start: 05-28-2025 End: 05-29-2025 Emergency department patient visit [facility] Start: 05-24-2025 End: 05-24-2025 Emergency department patient visit [facility] Start: 05-21-2025 End: 05-21-2025 Office outpatient visit 25 minutes María Thapa DO Work Phone: [facility] Comment on above: Pulmonary nodules/le sions, multiple (Primary Dx); Moderate persistent asthma without complication Start: 05-21-2025 End: 05-21-2025 ambulatory MARÍA THAPA [facility] Start: 04-23-2025 End: 04-23-2025 Orders Only Scanning Provider External [facility] Start: 04-16-2025 End: 04-16-2025 ambulatory Shyam Neumannr [facility] Work Phone: Start: 04-16-2025 End: 04-16-2025 Departed Referred Stefani Quezada MD Work Phone: [facility] Start: 04-16-2025 End: 04-16-2025 ambulatory Stefani Quezada MD Work Phone: [facility] Work Phone: Start: 04-16-2025 End: 04-16-2025 Patient encounter procedure Stefani Quezada MD Work Phone: [facility] Work Phone: Start: 04-14-2025 End: 04-14-2025 ambulatory Natasha Taylor [facility] Work Phone: Start: 04-14-2025 End: 04-14-2025 Departed Referred Stefani Quezada MD Work Phone: [facility] Start: 03-30-2025 End: 04-01-2025 Follow-up encounter Brannno DAVILA Work Phone: [facility] Start: 03-30-2025 End: 03-30-2025 Emergency department patient visit LUCIA Mike [facility] Start: 03-28-2025 End: 03-28-2025 ambulatory Stefani Quezada Facility:[facility] Start: 03-28-2025 End: 03-28-2025 Departed Referred Stefani Quezada MD Work Phone: [facility] Start: 03-28-2025 End: 03-28-2025 Clinisync Result Encounter Brannon DAVILA Work Phone: [facility] External Department Unsolicited Start: 03-28-2025 End: 03-28-2025 Clinisync Result Encounter Brannon DAVILA Work Phone: [facility] External Department Unsolicited Start: 02-20-2025 End: 02-20-2025 Orders Only María Beck Elier DO Work Phone: [facility] Comment on above: Moderate persistent asthma without complication (Primary Dx) Start: 02-19-2025 End: 02-19-2025 Office outpatient visit 25 minutes María Thapa DO Work Phone: [facility] Comment on above: Pulmonary nodules/le sions, multiple (Primary Dx); Dyspnea on exertion; Moderate persistent asthma without complication Start: 02-19-2025 End: 02-19-2025 ambulatory [facility] Start: 02-12-2025 End: 02-16-2025 Telephone [facility] Start: 02-06-2025 End: 02-06-2025 Bamboo flowsheet Brannon DAVILA Work Phone: [facility] Start: 02-06-2025 End: 02-06-2025 Bamboo flowsheet Brannon Carranza PA Work Phone: [facility] Start: 02-06-2025 End: 02-06-2025 Office outpatient visit 15 minutes Brannon DAVILA Work Phone: [facility] Comment on above: Acute pain of right knee (Primary Dx); Arthritis of right knee Start: 02-06-2025 End: 02-06-2025 ambulatory BRANNON CARRANZA Not Available Start: 01-21-2025 End: 01-21-2025 ambulatory [facility] Start: 12-25-2024 End: 12-25-2024 Evaluation and management of inpatient ISIDRA AMARO [facility] Start: 12-22-2024 End: 12-22-2024 Evaluation and management of inpatient LUCIA A ESTEBAN [facility] Start: 12-22-2024 End: 12-22-[address] [facility] Pat Phone Call Provider 3 Mikey Zamora [facility] Start: 12-16-2024 End: 12-16-2024 Telephone encounter Franca Regalado RN Work Phone: [facility] Start: 12-12-2024 Encounter for other preprocedural examination [facility] Start: 12-12-2024 End: 12-12-2024 ambulatory [facility]an [facility] Start: 12-11-2024 End: 12-16-2024 Patient encounter status Renae Torres RN [facility] Start: 12-11-2024 End: 12-11-2024 Refill María Thapa DO Work Phone: [facility] Start: 12-11-2024 End: 12-16-2024 [facility] Start: 12-11-2024 End: 12-11-2024 ambulatory [facility] Start: 12-11-2024 End: 12-11-2024 Office outpatient new 60 minutes María Thapa DO Work Phone: [facility] Comment on above: Pulmonary nodules/le sions, multiple (Primary Dx); Pulmonary nodule Start: 12-09-2024 End: 12-09-2024 ambulatory [facility] Start: 12-04-2024 ambulatory [facility] Start: 12-02-2024 ambulatory [facility] Start: 11-13-2024 End: 11-13-2024 ambulatory [facility] Start: 11-13-2024 Encounter for other preprocedural examination [facility] Start: 11-10-2024 End: 11-10-2024 ambulatory [facility] Start: 10-24-2024 End: 10-24-2024 ambulatory LUCIA ESTEBAN [facility] Start: 08-27-2024 End: 08-27-2024 Bamboo flowsheet Lavinia Herring DESIGN STUDIO CONSULTANT Work Phone: [facility] Start: 08-27-2024 End: 08-27-2024 Bamboo flowsheet Lavinia Herring DESIGN STUDIO CONSULTANT Work Phone: [facility] Start: 08-27-2024 End: 08-27-2024 ambulatory LAVINIA HERRING Not Available Start: 08-27-2024 End: 08-27-2024 Office outpatient visit 25 minutes Lavinia Herring DESIGN STUDIO CONSULTANT Work Phone: [facility] Comment on above: Primary osteoarthrit is of right knee (Primary Dx); Right knee pain, unspecified chronicity Start: 07-19-2024 End: 07-20-2024 Emergency department patient visit [facility] Start: 07-19-2024 End: 07-20-2024 Emergency department patient visit [facility] Start: 06-10-2024 End: 06-10-2024 ambulatory [facility] Start: 04-16-2024 End: 04-16-2024 ambulatory LAVINIA HERRING Not Available Start: 01-11-2024 End: 01-11-2024 Office outpatient visit 15 minutes Ignacio Augustine MD Work Phone: [facility] Comment on above: Neuropathy (Primary Dx) Start: 11-09-2023 Telephone encounter Estrella Brown LPN [facility] Comment on above: MRI Start: [...] End: 05-30-2019 Patient encounter procedure PROVIDER UNKNOWN Facility:[facility] Start: 01-03-1999 End: 01-03-1999 Patient encounter procedure Conversion Santa Aguilar [facility] Start: 01-03-1999 Results Only Conversion Santa Aguilar [facility] Procedures Date Procedure Procedure Detail Performing Clinician Start: 07-01-2025 CT of head without contrast Lucia Esteban MD Work Phone: Start: 06-16-2025 Urine culture Lucia peguero MD Work Phone: Start: 04-16-2025 Urine culture Lucia peguero MD Work Phone: Start: 04-14-2025 Urine culture Stefani Manning MD Work Phone: Start: 03-28-2025 URINE CULTURE - [facility] tt[facility]on DAVILA Work Phone: Start: 03-28-2025 Urine culture Stefani Manning MD Work Phone: Start: 02-19-2025 Follow-up visit Follow-up MARÍA THAPA Start: 02-18-2025 PULMONARY FUNCTION TEST Scanning Provider External Start: 02-06-2025 Arthrocentesis aspir &/inj major jt/bursa w/o us Brannon DAVILA Work Phone: Start: 08-27-2024 Arthrocentesis aspir &/inj major jt/bursa w/o us Lavinia Herring DESIGN STUDIO CONSULTANT Work Phone: Start: 08-27-2024 Radiologic examinati on knee 1/2 views Lavinia Herring DESIGN STUDIO CONSULTANT Work Phone: Start: 01-03-1999 CONVERTED CYTOLOGY SNOWBLOWER MECHANIC Conversion Santa Aguilar Plan of Treatment Date Care Activity Detail Author Start: 02-19-2026 Tobacco Screening Tobacco Screening [facility] Start: 12-25-2025 Tobacco Screening Tobacco Screening [facility] Start: 12-11-2025 Tobacco Screening Tobacco Screening [facility] Start: 07-20-2025 [facility] Start: 07-13-2025 Influenza vaccination Influenza Vaccine [facility] Start: 07-01-2025 Esophagogastroduodenoscopy DH EGD (Not Applicable) [facility] Start: 07-01-2025 [facility] Start: 06-16-2025 Bacteria identified in Urine by Culture Urine Culture [facility] Start: 06-16-2025 Urine culture [facility] Start: 05-21-2025 End: 05-21-2025 Patient encounter procedure 05/21/2025 2:30 PM EDT Office Visit [facility] [place] [address] [place] [address] María Thapa, DO [address] [place], [place] [id number] [facility] Start: 04-16-2025 Urine culture [facility] Start: 04-16-2025 Bacteria identified in Urine by Culture Urine Culture [facility] Start: 04-14-2025 Bacteria identified in Urine by Culture Urine Culture [facility] Start: 04-14-2025 Urine culture [facility] Start: 02-19-2025 End: 02-19-2025 Patient encounter procedure 02/19/2025 10:45 AM EDT Office Visit [facility] [address] [place] [address] María Thapa, DO [address] [address] [facility] Start: 02-06-2025 End: 02-06-2025 Patient encounter procedure 02/06/2025 11:30 AM EDT Office Visit [facility] [address] [facility] [place] [address] Brannon Carranza, PA [address] [facility] [address] [place] [address] Acute pain of right knee (Primary Dx) [facility] Comment on above: Acute pain of right knee (Primary Dx) Start: 01-06-2025 End: 01-06-2025 Admission to same day surgery center 01/06/2025 1:00 PM EST - 01/06/2025 2:30 PM EST Surgery [facility] [address] [place] [address] María Thapa, DO [address] [address] ION ROBOTIC BRONCOSCOPY [42869 (CPT )] [facility] Comment on above: ION ROBOTIC BRONCOSCOPY [28375 (CPT )] Start: 01-06-2025 End: 01-06-2025 [facility] incl fluor gdnce dx w/cell washg spx [facility] Start: 01-06-2025 Subsequent hospital visit by physician 01/06/2025 1:00 PM EST Hospital Encounter [facility] [address] [address] María Thapa, DO [address] [id number] [facility] Start: 12-25-2024 End: 12-25-2024 Admission to same day surgery center 12/25/2024 1:15 PM EST - 12/25/2024 3:00 PM EST Surgery [facility] [address] [place] [phone] Isidra Saeed MD [address] [address] ION ROBOTIC BRONCOSCOPY [[id number] (CPT )] [facility] Comment on above: ION ROBOTIC BRONCOSCOPY [31840 (CPT )] Start: 12-25-2024 End: 12-25-2024 [facility] incl fluor gdnce dx w/cell washg spx [facility] Start: 12-25-2024 Subsequent hospital visit by physician 12/25/2024 1:15 PM EST Hospital Encounter [facility] [address] [place] [phone] Isidra Saeed MD [address] [address] [facility] Start: 12-22-2024 End: 12-22-2024 Admission to establishment 12/22/2024 8:30 AM EST Support Visit [facility] On [address] [phone] [facility] Start: 12-12-2024 End: 12-12-2024 Patient encounter procedure 12/12/2024 9:30 AM EST Appointment [facility] [place] [address] [place] [id number] María Thapa DO [address] [facility] [facility] [employer] [facility] [address] [place] [id number] [facility] - [place] Start: 12-11-2024 End: 12-11-2025 CT Chest limited WO contrast CT Ion Chest without contrast Imaging STAT Pulmonary nodules/lesions, multiple Expected: 12/11/2024, Expires: 12/11/2025 [employer] Work Phone: Comment on above: Expected: 12/11/2024, Expires: 6 Start: 10-26-2024 Adult BMI Screening Adult BMI Screening [facility] Start: 10-26-2024 Tobacco Screening Tobacco Screening [facility] Start: 07-13-2024 COVID-19 Vaccine ( season) COVID-19 Vaccine ( season) [facility] Start: 07-13-2024 Influenza vaccination Influenza Vaccine (#1) [facility] Start: 11-09-2023 End: 11-09-2024 MR Lumbar spine WO contrast MR lumbar spine without contrast Imaging Routine Neuropathy Expected: 11/09/2023, Expires: 11/09/2024 [employer] Work Phone: Comment on above: Expected: 11/09/2023, Expires: 4 Start: 07-13-2023 COVID-19 Vaccine ( season) COVID-19 Vaccine ( season) [facility] Start: 07-13-2023 Influenza vaccination Influenza Vaccine [facility] Start: 07-25-2022 ambulatory Ambulatory Facility: Start: 07-13-2020 Influenza vaccination INFLUENZA (#1) [facility] Start: 10-09-2018 Pneumococcal Vaccine: 65+ Years (2 of 2 - PCV) Pneumococcal Vaccine: 65+ Years (2 of 2 - PCV) [facility] Start: 07-19-2016 Administration of varicella zoster vaccine Zoster (Shingles) Vaccine (2 of 3) [facility] Start: 01-18-2009 ADVANCE DIRECTIVE DISCUSSION ADVANCE DIRECTIVE DISCUSSION [facility] Start: 01-18-2009 BONE DENSITY BONE DENSITY [facility] Start: 01-18-2009 Fall Risk Screening Fall Risk Screening [facility] Start: 01-18-2009 PNEUMOVAX AGE 65 AND OVER WITH 5YR LOOKBACK (#1) PNEUMOVAX AGE 65 AND OVER WITH 5YR LOOKBACK (#1) [facility] Start: 01-18-1994 SHINGRIX VACCINE (1 of 2) SHINGRIX VACCINE (1 of 2) [facility] Start: 01-18-1994 Tuberculosis screening COLORECTAL CANCER SCREENING,SEE MODIFIER [facility] Start: 01-18-1989 DIABETES SCREEN DIABETES SCREEN [facility] Start: 01-18-1989 LIPID SCREEN LIPID SCREEN [facility] Start: 01-18-1963 DTaP,Tdap and Td Vaccines (1 - Tdap) DTaP,Tdap and Td Vaccines (1 - Tdap) [facility] Start: 01-18-1963 Urine microalbumin profile DTAP,TDAP,TD (1 - Tdap) [facility] Start: 01-18-1962 Adult BMI Follow Up Plan Adult BMI Follow Up Plan [facility] Start: 01-18-1962 HEPATITIS C SCREENING HEPATITIS C SCREENING [facility] Start: 1956 Depression Screening Depression Screening [facility] Start: 1944 Medicare Annual Wellness Visit Medicare Annual Wellness Visit [facility] Complement C3 [Mass/ volume] in Serum or Plasma [facility] Complement C4 [Mass/ volume] in Serum or Plasma [facility] End: 02-19-2026 Eosinophil count Eosinophil count Lab Routine Moderate persistent asthma without complication 1 Occurrences starting 02/19/2025 until 02/19/2026 [facility] Comment on above: 1 Occurrences starting 02/19/2025 until 02/19/2026 Patient Education [facility] Work Phone: Patient referral [facility] Work Phone: Renal function 1999 panel - Serum or Plasma [facility] Renal function 1999 panel - Serum or Plasma [facility] End: 02-19-2026 Respiratory allergy panel Respiratory allergy panel Lab Routine Moderate persistent asthma without complication 1 Occurrences starting 02/19/2025 until 02/19/2026 [employer] Work Phone: Comment on above: 1 Occurrences starting 02/19/2025 until 02/19/2026 [place] [facility] [place] [facility] [place] Routine 03/28/2025 5:58 PM EDT [facility] Work Phone: Kidney - bilateral [facility] Immunizations Immunization Date Immunization Notes Care Provider Chicho felix 10-22-2024 influenza virus vaccine, unspecified formulation Patricia Velazquez [facility] 09-09-2020 influenza virus vaccine, unspecified formulation Estrelladianna Brown [employer] INST[employer] [facility] 05-24-2016 zoster vaccine, unspecified formulation Estrellayohana Brown SE[employer] T[employer] INSTALLER [facility] Payers Date Payer Category Payer Unknown [id number] 2025 Self-pay 2024 Unknown [id number] 2010 Managed Care Other (unspecified) [facility] [id number] .[id number] 2010 Private Health Insurance [id number] .[id number] .[id number] 2009 Medicare [id number]. 1.13.693.2 .[id number] 1959 Medicare [id number] 1959 Unknown [id number] 1944 Unknown [id number] 2.16.840.1.424257.3.579.2 .647 1944 Unknown [id number] 2.16.840.1.057056.3.579.2 .593 1944 Unknown [id number] 2.16.840.1.055591.3.579.2 .593 1944 Unknown [id number] 2.16.840.1.469943.3.579.2 .593 1944 Unknown [id number] 2.16.840.1.767808.3.579.2 .593 1944 Unknown [id number] 2.16.840.1.126503.3.579.2 .593 1944 Unknown [id number] 2.16.840.1.453379.3.579.2 .593 1944 Unknown [id number] 2.16.840.1.610697.3.579.2 .593 1944 Unknown [id number] 2.16.840.1.383920.3.579.2 .593 1944 Unknown [id number] 2.16.840.1.928140.3.579.2 .593 1944 Unknown [id number] 2.16.840.1.135043.3.579.2 .593 1944 Unknown [id number] 2.16.840.1.668583.3.579.2 .593 1944 Unknown [id number] 2.16.840.1.878851.3.579.2 .593 1944 Unknown [id number] 2.16.840.1.147213.3.579.2 .1286 1944 Unknown [id number] 2.16.840.1.124067.3.579.2 .1286 1944 Unknown [id number] 2.16.840.1.303992.3.579.2 .1259 1944 Unknown [id number] 2.16.840.1.904400.3.579.2 .1259 1944 Unknown [id number] 2.16.840.1.766085.3.579.2 .1259 1944 Unknown [id number] 2.16.840.1.180129.3.579.2 .1259 1944 Unknown [id number] 2.16.840.1.956921.3.579.2 .128 1944 Unknown [id number] 2.16.840.1.683510.3.579.2 .1285 1944 Unknown [id number] 2.16.840.1.189161.3.579.2 .1285 1944 Unknown [id number] 2.16.840.1.353181.3.579.2 .1285 1944 Unknown [id number] 2.16.840.1.720800.3.579.2 .1285 1944 Unknown [id number] 2.16.840.1.286266.3.579.2 .1285 1944 Unknown [id number] 2.16840.1.647692.3.579.2 .1285 1944 Unknown [id number] 2.16.840.1.821860.3.579.2 .1285 1944 Unknown [id number] 2.16840.1.297896.3.579.2 .1285 1944 Unknown [id number] 2.16.840.1.481601.3.579.2 .1285 1944 Unknown [id number] 2.16840.1.564664.3.579.2 .1285 1944 Unknown [id number] 2.16.840.1.786657.3.579.2 .1285 1944 Unknown [id number] 2.16.840.1.977903.3.579.2 .1285 1944 Unknown [id number] 2.16.840.1.838909.3.579.2 .1285 1944 Unknown [id number] 2.16.840.1.921121.3.579.2 .1285 1944 Unknown [id number] 2.16.840.1.415186.3.579.2 .1286 1944 Unknown [id number] 2.16.840.1.688184.3.579.2 .1286 1944 Unknown [id number] 2.16.840.1.181008.3.579.2 .1286 Medicare Medicare Outpatient [id number] [id number] Unknown [id number] 2.16.840.1.094533.3.579.2 .531 Unknown [id number] 2.16.840.1.762021.3.579.2 .531 Unknown [id number] 2.16.840.1.181410.3.579.2 .531 Unknown [id number] 2.16.840.1.461735.3.579.2 .531 Unknown [id number] 2.16.840.1.908410.3.579.2 .531 Unknown [id number] 2.16.840.1.913934.3.579.2 .531 Unknown [id number] 2.16.840.1.828603.3.579.2 .531 Social History Date Type Detail Facility Tobacco smoking stat us [facility] Unknown if ever smoked [facility] Sex Assigned At Not on file [facility] Start: 04-16-2024 End: 07-20-2025 Tobacco smoking status NHIS Never smoked tobacco [facility] Start: 09-19-2023 End: 04-16-2024 Tobacco use and exposure Smokeless tobacco non-user [facility] Start: 04-16-2024 End: 02-19-2025 Alcoholic beverage intake Current drinker of alcohol (finding) [facility] Start: 12-23-2020 End: 04-16-2024 History of Social function [facility] Start: 12-23-2020 End: 04-16-2024 Tobacco use panel [facility] Start: 1945 Sex assigned at Female [facility] Start: 08-01-2020 Gender identity Identifies as female gender (finding) [facility] Start: 04-05-2024 Sexual orientation Heterosexual (finding) [facility] Adolescent depressio n screening assessment 0 [facility] Start: 06-17-2015 End: 04-15-2025 Sex Female (finding) [facility] Work Phone: Medical Equipment Procedure Code Equipment Code Equipment Origin al Text Equipment Identifier Dates Cement Bn Palaco s Radpq 40g Rpl [id number] - Sn/A - [id number] Start: 01-15-2018 Cmpt Fem D Kn Lt Lpsflx Gndr Rpl [id number] - Sn/A - [id number] Start: 01-15-2018 Ins Artc 3-4 C-D 10mm Kn Fx - Sn/A - [id number]/SN/A, [id number] FDA Start: 01-15-2018 Cmpt Ptlr 32mm N xgn Alply Rpl [id number] - Sn/A - [id number]/SN/A, [id number] FDA Start: 01-15-2018 Plt Tib [id number] m Nxgn Kn Cmnt Rpl [id number] + [id number] - Sn/A - [id number] Start: 01-15-2018 Goals Date Patient Goal Desired Activity /State Clinical Notes 02-14-2022 to 07-01-2025 Note Date & Type Note Facility 07-01-2025 Radiology Diagnostic study note [facility] [place] [address] CT Scan Report Signed Patient: Margy Oakes MR#: [id number] : 1945 Acct:[id number] Age/Sex: 80 / F ADM Date: 5 Loc: ER Room: Type: [facility] ER Attending Dr: Copies to: Calvin Parekh PA-C~ Ordering Provider: Calvin Parekh PA-C Date of Service: 07/01/25 CT/CT head/brain wo con: head injury [address] BRAIN WITHOUT CONTRAST: CLINICAL HISTORY: Fall, mild headache since fall, history of breast cancer COMPARISON: None TECHNIQUE: Contiguous axial unenhanced images were obtained through the brain. This CT exam was performed using one or more following dose reduction techniques: Automated exposure control, adjustment of the mA and/or kV accordingto patient size, or use of iterative reconstruction technique. FINDINGS: There is no evidence of midline shift, intra or extra-axial fluid collection, hemorrhage or CT evidence of of acute large vascular lesion stroke Vascular calcifications. Visualized intraorbital contents appear unremarkable. Visualized paranasal sinuses are clear. The surrounding soft tissues are normal. CT/CT head/brain wo con IMPRESSION: NO ACUTE INTRACRANIAL ABNORMALITY. Impression dictated by: Marco Correa M.D. 07/01/2025 2:55 PM Dictation Location: [place] [address] Transcribed By: [facility] 07/01/25 145 Dictated By: Marco Correa MD 07/01/25 1453 Signed By: 07/01/25 145 [facility] Work Phone: 06-10-2025 Note [facility] Note Reason for cardiology visit: follow-up on coronary artery disease, hypertension, and hyperlipidemia HPI: 06/10/2025 Patient is here today with her for follow-up visit. She was recently on 05/29/2025 in [facility] ED because of intermittent chest pain at rest that day. The workup was negative for cardiac issue, it was felt to be either related to mastectomy or to acid reflux. She has been taking Carafate as needed and she thinks that she is doing well on that. She denies any symptoms of chest pain or shortness of breath at rest or with exertion. She denies orthopnea or paroxysmal nocturnal dyspnea or dizziness or palpitations or legs edema. Her blood pressure at home has been well-controlled 01/21/2025 Patient is here today for follow-up [...] Penicillins, and Promethazine Medications Current Outpatient Medications: albuterol 2.5 mg /3 mL (0.083 %) nebulizer solution, Inhale 2.5 mg if needed in the morning, at noon, in the evening, and at bedtime., Disp: , Rfl: amitriptyline (Elavil) 10 mg tablet, Take 20 mg by mouth at bedtime., Disp: , Rfl: aspirin 81 mg EC tablet, Take 1 tablet (81 mg) by mouth in the morning., Disp: 30 tablet, Rfl: 11 atorvastatin (Lipitor) 40 mg tablet, Take 1 tablet (40 mg) by mouth at bedtime., Disp: 30 tablet, Rfl: 11 cholecalciferol, vitamin D3, 50 mcg (2,000 unit) capsule, Take 2,000 Units by mouth in the morning., Disp: , Rfl: DULoxetine (Cymbalta) [address] capsule, Take 60 mg by mouth in the morning., Disp: , Rfl: fluticasone furoate-vilanteroL (Breo Elipta) 200-25 mcg/dose inhaler, Inhale 1 puff in the morning., Disp: , Rfl: gabapentin (Neurontin) 300 mg capsule, Take 900 mg by mouth at bedtime., Disp: , Rfl: hydroCHLOROthiazide (Microzide) 12.5 mg capsule, Take 1 capsule (12.5 mg) by mouth in the morning., Disp: 90 capsule, Rfl: 3 isosorbide mononitrate ER (Imdur) 60 mg 24 hr tablet, Take 1 tablet (60 mg) by mouth in the morning., Disp: 30 tablet, Rfl: 11 lisinopril 10 mg tablet, Take 10 mg [...] mouth in the morning., Disp: , Rfl: prochlorperazine (Compazine) 10 mg tablet, Take 10 mg by mouth if needed., Disp: , Rfl: sucralfate (Carafate) 1 gram tablet, Take 1 g by mouth if needed., Disp: , Rfl: atorvastatin (Lipitor) 80 mg tablet, Take 1 tablet (80 mg) by mouth at bedtime., Disp: 90 tablet, Rfl: 3 Ibrance 125 mg chemo tablet, TAKE ONE TABLET BY MOUTH ONCE DAILY on days 1-21 e (more content not included)... [facility] 06-04-2025 Evaluation note Diagnosis Onset Date Resolution Acute kidney injury superimposed on CKD acute June 04, 025 8:31am Anemia of chronic disease acute June 04, 2025 8:31am Breast cancer acute June 04, 2025 8:31am CKD (chronic kidney disease) stage 3, GFR 30-59 ml/min acute June 04, 2025 8:31am Hyperlipidemia acute June 04, 2025 8:31am Hypertensive chronic kidney disease with stage 1 through stage 4 chronic ki acute June 04, 2025 8:31am [facility] Work Phone: 1(643) 411-855107-10-2025 History of Present illness Narrative* María Thapa, DO - 05/21/2025 2:30 PM EDT Images from the original note were not included. [facility] Progress Note Patient - Margy Oakes Age - 80 y.[facility]. [facility] 1945 [id number] ASSESSMENT 1. Chronic cough and dyspnea on exertion felt possibly related to underlying bronchospasm, cough variant asthma 2. Multiple pulmonary nodules consistent with metastatic breast carcinoma -s/p navigational bronchoscopy with biopsy 3. Never smoker PLAN Continue Breo, Singulair, p.r.n. albuterol HFA and albuterol aerosols Pending repeat chest imaging as per her oncologist Age-appropriate routine vaccination advised Continue daily exercise Return to clinic in 6 months or earlier if needed SUBJECTIVE MARGY PRESENTS FOR FOLLOW-UP OF HER COUGH, SHORTNESS OF BREATH. SHE HAS PREVIOUSLY BEEN PRESCRIBED BREO, P.R.N. ALBUTEROL HFA AND ALBUTEROL AEROSOLS. LAST VISIT WE DISCUSSED DOING ALBUTEROL AEROSOLS 1ST THING IN THE MORNING FOLLOWED BY MAINTENANCE BREO. Pretreatment prior to exercise was also discussed. She continues to follow closely with her oncologist, Dr. Vazquez, for treatment of her recurrent metastatic breast cancer causing pulmonary nodules on imaging. She overall reports that her shortness of breath is improved on inhaler therapy. She continues to take Breo 1 puff daily, Singulair, p.r.n. albuterol HFA. She also has nebulizer machine with albuterol aerosols available for as needed use. She continues to have her intermittent atypical chest pain. She did undergo cardiac catheterization in November 2024 for this without any concerning etiology noted. She does anticipate upcoming repeat imaging of the chest as ordered by her oncologist but has not had anything recently that she can recall. She denies any mucus production, significant wheezing or coughing. VITALS BP 124/68 (BP Site: Left Arm, BP Postition: Sitting) Pulse 60 Ht 152.4 cm (5') Wt 78.9 kg (174 lb) SpO2 96% BMI 33.98 kg/m Exam General: Alert, oriented, no acute distress, nontoxic HEENT: Moist mucosal membranes, trachea midline Chest: Clear to auscultation bilaterally without any crackles, wheezes, rhonchi. Normal AP diameter. CV: Regular rate regular rhythm Extremities: No distal cyanosis, clubbing Integumentary: Warm and dry. No rash or lesion Neuro: No lateralizing deficits. No tremors Meds Medications Reviewed. Lab Results PFT Results Radiology DEC 2024 CXR History: Postprocedure, transbronchial biopsy Exam/Technique: Single AP view of the chest was obtained Comparison: 10/24/2024 at 1:10 PM. Findings: Cardiomediastinal silhouette remains stable. There is mild prominence of reticular infiltration at both lower lobe perihilar regions, right more the left. The multiple bilateral pulmonary nodules arenot as clearly defined as prior CT chest. There is no gross pleural effusion or pneumothorax. IMPRESSION: Mild prominence of the perihilar interstitial infiltration with mild peribronchial wall thickening. Dr. María Thapa DO. [facility] Office: [phone] documented in this encounterOhio [facility] Evaluation note* Diagnosis Onset Date Resolution Status Admit Date Acute kidney injury superimp osed on CKD acute April 16, 2025 2 :50pm Anemia of chronic disease acute April 16, 2025 2:50pm Breast cancer acute April 16, 025 2:50pm CKD (chronic kidney disease) stage 3, GFR 30-59 ml/min acute April 16 2:50pm Hyperlipidemia acute April 16, 2025 2:50pm Hypertensive chronic kidney disease with stage 1 through stage 4 chronic ki acute April 16, 2025 2 :50pm [facility] Work Phone: 1(207) 251-295906-05-2025 Evaluation note* Diagnosis Onset Date Resolution Status Admit Date Acute kidney injury superimp osed on CKD acute April 16, 2025 2 :50pm Anemia of chronic disease acute April 16, 2025 2:50pm Breast cancer acute April 16, 2 025 2:50pm CKD (chronic kidney disease) stage 3, GFR 30-59 ml/min acute April 162024 2:50pm Hyperlipidemia acute April 16, 2025 2:50pm Hypertensive chronic kidney disease with stage 1 through stage 4 chronic ki acute April 16 2:50pm Acute kidney injury superimp osed on CKD acute June 04, 2025 8:31am Anemia of chronic disease acute June 04, 2025 8:31am Breast cancer acute June 04, 2025 8:31am CKD (chronic kidney disease) stage 3, GFR 30-59 ml/min acute May 132024 8:31am Hyperlipidemia acute June 04, 2025 8:31am Hypertensive chronic kidney disease with stage 1 through stage 4 chronic ki acute June 04 8:31am [facility] Work Phone: 1(531) 905-492204-11-2025 Miscellaneous Notes* Telephone Encounter - RATNA Frank - 02/20/2025 10:21 AM EDT Home nebulizer and tubing kit orders with supportive documentation faxed to [facility]. [facility] encounter[facility] Telephone encounter Note* Telephone Encounter - RATNA Frank - 02/20/2025 10:21 AM EDT Home nebulizer and tubing kit orders with supportive documentation faxed to [facility]. [facility]04-11-2025 History of Present illness Narrative* María Thapa DO - 02/20/2025 7:39 AM EDT Notification from pharmacy received that advair diskus not covered and Breo preferred. Rx for Breo sent to pharmacy documented in this encounterOhio State University [facility]04-10-2025 History of Present illness Narrative* María Thapa, DO - 02/19/2025 10:45 AM EDT [facility] Progress Note Patient - [...] months. She recently had a trip to [facility] and had to stop frequently to [...] Meds Medications Reviewed. Dr. María Thapa DO. [facility]: [phone] documented in this encounterGeorgetown Behavioral HospitalPlympton Mclaren Caro [id number] Instructions* Patient Instructions* María Thapa DO - [...] full vial of medicine. documented in this encounterGeorgetown Behavioral HospitalPlympton Mclaren Caro [id number] Miscellaneous Notes* Telephone Encounter - RATNA Frank - 02/12/2025 9:34 AM EDT [employer] Control/Anti Air Warfare Officer received message from requesting that we add patient over lunch on 02/19/2025, as Dr. Vazquez would like patient to see SE. [employer] Control/Anti Air Warfare Officer called patient and left voicemail asking for patient to return our call at her earliest convenience to get her scheduled. * Telephone Encounter - RATNA Frank - 02/12/2025 9:34 AM EDT Air Control/Anti Air Warfare Officer received message from requesting that we add patient over lunch on 02/19/2025, as Dr. Vazquez would like patient to see SE. Air Control/Anti Air Warfare Officer called patient and left voicemail asking for patient to return our call at her earliest convenience to get her scheduled. * Telephone Encounter - RATNA Frank - 02/12/2025 9:34 AM EDT Patient called office back and scheduled an appointment with SE on 02/19/2025 at 10:45am in [place]. documented in this encounterOhio [facility]04-03-2025 Telephone encounter Note* Telephone Encounter - RATNA Frank - 02/12/2025 9:34 AM EDT Air Control/Anti Air Warfare Officer received message from requesting that we add patient over lunch on 02/19/[address], [address] Vazquez would like patient to see SE. Air Control/Anti Air Warfare Officer called patient and left voicemail asking for patient to return our call at her earliest convenience to get her scheduled. [facility]04-03-2025 Telephone encounter Note* Telephone Encounter - RATNA Frank - 02/12/2025 9:34 AM EDT Air Control/Anti Air Warfare Officer received message from requesting that we add patient over lunch on 02/19/[address], [address] Vazquez would like patient to see SE. Air Control/Anti Air Warfare Officer called patient and left voicemail asking for patient to return our call at her earliest convenience to get her scheduled. [facility] [id number] Telephone encounter Note* Telephone Encounter - RATNA Frank - 02/12/2025 9:34 AM EDT Patient called office back and scheduled an appointment with SE on 02/19/2025 at 10:45am in [place]. [facility] [email or web address] [id number] History of Present illness Narrative* LOLA Dickey [...] GRADUAL INCREASE WITH PAIN- PT ISLEAVING FOR [employer]URN ON SUNDAY- REQUESTING CORTISONE INJ PT RECENTLY DX WITH BREAST CA FOR THE 3RD TIME; CURRENTLY ON IBRANCE XRAY EPIC 08/27/24 XRAY FM 07/09/23 DEPO INJECTION 04/16/24, 08/27/24 PHYSICAL THERAPY [...] alleviate symptoms before her upcoming trip to [place]. She will contact the clinicon an as- needed basis if her symptoms worsen for reevaluation upon her return. There is no calf tenderness, and she has previously found relief from injections. If there is no improvement, consider senior bi developer bracing. PROCEDURE An injection was administered today to alleviate right knee pain. Questions answered in laymen terms at the bedside. The diagnosis, home exercise plan and any ongoing restrictions/ recommendations reviewed. If unable to be reached in office, I recommend evaluation at nearest Emergency Room if any symptoms worsened or new symptoms develop for requiring urgent evaluation. documented in this encounterHedrick Medical [id number] NoteBellevue Office Cardiology Clinic Note Reason for [...] 47 11/13/2024 Cholesterol 215, (more content not included)...[facility]02-10-2025 Instructions* Pre-Procedure Instructions - Paris Robertson RN - 12/22/2024 8:30 AM EST Your surgery/procedure is scheduled at [facility] on 12/25/2024 at 1315 Arrival Time 1115 [facility] Address: [address] [place] [address]. [place], [place] [address] Park in [address] Parking lot located on [facility]. Report to the Entrance B. Check in at the information desk the surgery. The waiting room located on the second floor. If you have any questions prior to surgery, please call Pre-Admission Clinic at [phone] between 7:30 am and 4:30 pm Sunday through Sunday. If you have questions the morning of surgery, please call the Pre-op Department at [phone]. Notify your SURGEON if you develop any [...] piercings ,hair extensions that contain metal, nail micronesian, make-up, and contact lens. You may brush [...] RIGHTS AND RESPONSIBILITIES As a patient at [facility], you have the right to: Receive medical care and be informed of who is taking care of you Be treated with dignity and respect Have a family member/hobbies and crafts sales representative of choice and your physician notified of your admission Receive information and actively participate in decisions about your care and treatment Refuse care, treatment and services Decide who may provide your support and speak for you Access muslim and spiritual services Participate in ethical issues [...] of hospital charges and payment methods Patient/patient hobbies and crafts sales representative responsibilities are to: Provide information [...] RIGHTS AND RESPONSIBILITIES As a patient at [facility], you have the right to: Receive medical care and be informed of who is taking care of you Be treated with dignity and respect Have a family member/hobbies and crafts sales representative of choice and your physician notified of your admission Receive information and actively participate in decisions about your care and treatment Refuse care, treatment and services Decide who may provide your support and speak for you Access muslim and spiritual services Participate in ethical issues [...] of hospital charges and payment methods Patient/patient hobbies and crafts sales representative responsibilities are to: Provide information [...] Control department if you have any questions. [facility]02-10-2025 Miscellaneous Notes* Pre-Procedure Instructions - Paris Robertson RN - 12/22/2024 8:30 AM EST Your surgery/procedure is scheduled at [facility] on 12/25/2024 at 1315 Arrival Time 1115 [facility] Address: [address] [place] [address] in [address] Parking lot located on [facility]. Report to the Entrance B. Check in at the information desk the surgery. The waiting room located on the second floor. If you have any questions prior to surgery, please call Pre-Admission Clinic at [phone] between 7:30 am and 4:30 pm Sunday through Sunday. If you have questions the morning of surgery, please call the Pre-op Department at [phone]. Notify your SURGEON if you develop any [...] piercings ,hair extensions that contain metal, nail micronesian, make-up, and contact lens. You may brush [...] RIGHTS AND RESPONSIBILITIES As a patient at [facility], you have the right to: Receive medical care and be informed of who is taking care of you Be treated with dignity and respect Have a family member/hobbies and crafts sales representative of choice and your physician notified of your admission Receive information and actively participate in decisions about your care and treatment Refuse care, treatment and services Decide who may provide your support and speak for you Access muslim and spiritual services Participate in ethical issues [...] of hospital charges and payment methods Patient/patient hobbies and crafts sales representative responsibilities are to: Provide information [...] RIGHTS AND RESPONSIBILITIES As a patient at [facility], you have the right to: Receive medical care and be informed of who is taking care of you Be treated with dignity and respect Have a family member/hobbies and crafts sales representative of choice and your physician notified of your admission Receive information and actively participate in decisions about your care and treatment Refuse care, treatment and services Decide who may provide your support and speak for you Access muslim and spiritual services Participate in ethical issues [...] of hospital charges and payment methods Patient/patient hobbies and crafts sales representative responsibilities are to: Provide information [...] you have any questions. documented in this encounterGeorgetown Behavioral HospitalPlympton Mclaren Caro [id number] Miscellaneous Notes* Telephone Encounter - Franca Regalado RN - 12/16/2024 9:44 AM EST Patient currently scheduled for 01/06 for ION/ EBUS. Dr Amaro is able to accommodate earlier on 12/25 [...] at offered time. She is currently at [facility] and requests our office to call her later with the details. * Telephone Encounter - Franca Regalado RN - 12/16/2024 9:44 AM EST Spoke with patient. Instructed to hold aspirin on 12/20/24 for 5 days. Nothing to eat or drink after midnight. Arrive to [facility] by 1115 am for a procedure times of 115 pm. documented in this encounterWhite River Junction Va Medical CenterCombaGroup02-04-2025 Telephone encounter Note* Telephone Encounter - Franca Regalado RN - 12/16/2024 9:44 AM EST Patient currently scheduled for 01/06 for ION/ EBUS. Dr Amaro is able to accommodate earlier on 12/25 [...] being held on 12/25/24 at 115 pm. [facility] Work Phone: [phone]) 739-675902-04-2025 Telephone encounter Note* Telephone Encounter - Franca Regalado RN - 12/16/2024 9:44 AM EST Notification from Dr Thapa. The patient would like to have done at offered time. She is currently at [facility] and requests our office to call her later with the details. Amaru02-04-2025 Telephone encounter Note* Telephone Encounter - Franca Regalado RN - 12/16/2024 9:44 AM EST Spoke with patient. Instructed to hold aspirin on 12/20/24 for 5 days. Nothing to eat or drink after midnight. Arrive to [facility] by 1115 am for a procedure times of 115 pm. Amaru01-30-2025 Miscellaneous Notes* Telephone Encounter - Renae Torres RN - 12/11/2024 3:02 PM EST Air Control/Anti Air Warfare Officer attempted to contact patient. No answer. Left message for patient to contact office regarding procedure date and time. Left office phone number for reference. Patient will need to be informed of the following: Ion Navigational procedure w/EBUS under general anesthesia (Dx: Lung nodule) is scheduled for Dec at 1:00 pm. Patient to arrive to [facility] at 11:00 am. Patient to report to [...] procedure. Tylenol only. Make arrangements for a trailer truck driver to bring you to and from the hospital on the day of the procedure Bring your ID, current medication list and insurance cards to the hospital Call our office if you become ill such as a cold, cough, fever, sore throat or vomiting on the day before or day of the director of medicare to update Dr Thapa Case #[id number] * Telephone Encounter - Renae Torres RN - 12/11/2024 3:02 PM EST Patient returned call. Air Control/Anti Air Warfare Officer informed patient of the following: Ion Navigational procedure w/EBUS under general anesthesia (Dx: Lung nodule) is scheduled for Dec at 1:00 pm. Patient to arrive to [facility] at 11:00 am. Patient to report to [...] procedure. Tylenol only. Make arrangements for a trailer truck driver to bring you to and from the hospital on the day of the procedure Bring your ID, current medication list and insurance cards to the hospital Call our office if you become ill such as a cold, cough, fever, sore throat or vomiting on the day before or day of the procedure Patient agreeable to above information and verbalized understanding Air Control/Anti Air Warfare Officer to update Dr Thapa Case #[id number] * Telephone Encounter - Renae Torres RN [...] 115 pm with TSA documented in this encounterOhio State University [facility]01-30-2025 Telephone encounter Note* Telephone Encounter - Renae Torres RN - 12/11/2024 3:02 PM EST Air Control/Anti Air Warfare Officer attempted to contact patient. No answer. Left message for patient to contact office regarding procedure date and time. Left office phone number for reference. Patient will need to be informed of the following: Ion Navigational procedure w/EBUS under general anesthesia (Dx: Lung nodule) is scheduled for Dec at 1:00 pm. Patient to arrive to [facility] at 11:00 am. Patient to report to [...] procedure. Tylenol only. Make arrangements for a trailer truck driver to bring you to and from the hospital on the day of the procedure Bring your ID, current medication list and insurance cards to the hospital Call our office if you become ill such as a cold, cough, fever, sore throat or vomiting on the day before or day of the director of medicare to update Dr Thapa Case #[id number] Amaru01-30-2025 Telephone encounter Note* Telephone Encounter - Renae Torres RN - 12/11/2024 3:02 PM EST Patient returned call. Air Control/Anti Air Warfare Officer informed patient of the following: Ion Navigational procedure w/EBUS under general anesthesia (Dx: Lung nodule) is scheduled for Dec at 1:00 pm. Patient to arrive to [facility] at 11:00 am. Patient to report to [...] procedure. Tylenol only. Make arrangements for a trailer truck driver to bring you to and from the hospital on the day of the procedure Bring your ID, current medication list and insurance cards to the hospital Call our office if you become ill such as a cold, cough, fever, sore throat or vomiting on the day before or day of the procedure Patient agreeable to above information and verbalized understanding Air Control/Anti Air Warfare Officer to update Dr Thapa Case #[id number] Amaru01-30-2025 Telephone encounter Note* Telephone Encounter - Renae Torres RN - 12/11/2024 3:02 PM EST Patient completed labs today but does not stop aspirin until 12-30-24. Do you want her to repeat them? Amaru01-30-2025 Telephone encounter Note* Telephone Encounter - María Thapa DO - 12/11/2024 3:02 PM EST No that is fine Amaru01-30-2025 Telephone encounter Note* Telephone Encounter - Franca Regalado RN - 12/11/2024 3:02 PM EST Procedure moved up to 12/25/24 at 115 pm with TSA [facility] Work Phone: 1([phone]) 958-500301-30-2025 History of Present illness Narrative* María Thapa DO - 12/11/2024 12:00 PM EST Images from the original note were not included. 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 She is a never smoker. Her father suffered from bone cancer and prostate cancer. She denies any personal or family history of rheumatologic conditions however she did follow with rheumatology [facility]. She is mostly bothered by this [...] mostly in her upper airway upper chest. Jean-Paul had heart catheterization earlier this week which [...] Past Medical History: Diagnosis Date Angina pectoris ([facility]) Arthralgia of multiple joints Arthritis Bicipital tendinitis Breast cancer ([facility]) 2024 Cancer ([facility]) breast x2 Carpal tunnel syndrome Dizziness vertigo Fibromyalgia, primary GERD (gastroesophageal reflux disease) Headache Heart burn Hyperlipidemia Hypertension Lumbosacral spinal stenosis Meningioma ([facility]) 07/2019 STABLE Neuropathy Obesity Osteoarthritis Positive SATYA (antinuclear antibody) Radiculopathy of lumbosacral region Trochanteric bursitis of right hip Varicella Visual impairment glasses Past Surgical History: Procedure Laterality Date ADENOIDECTOMY APPENDECTOMY 1960 BREAST BIOPSY 1997 BREAST LUMPECTOMY Bilateral 1993 Right; 1995 Left BUNIONECTOMY CARDIAC CATHETERIZATION 05/2019 CARDIAC CATHETERIZATION 1997 [facility] CARDIAC CATHETERIZATION 12/10/2024 COLONOSCOPY 06/08/2014 Dr. Robles COLONOSCOPY 11/09/2008 Dr. Robles COLONOSCOPY N/A 07/26/2020 Performed by Maverick Robles MD at [facility] EGD N/A 07/26/2020 Performed by Maverick Robles MD at [facility] FOOT SURGERY 09/2019 HYSTERECTOMY JOINT REPLACEMENT Left KNEE ARTHROSCOPY 2016 LYMPH NODE BIOPSY 1992 &1995 MASTECTOMY Bilateral MOUTH SURGERY REPLACEMENT TOTAL JOINT KNEE Left 01/15/2018 Performed by Jr Pepe Jeffries DO at [facility] TARSAL TUNNEL RELEASE TONSILLECTOMY 1949 Lyrica [...] mouth 3 (three) times a day.08/23/22 Yes Ignacio Augustine MD lisinopril (PRINIVIL,ZESTRIL) 10 mg tablet Take [...] Results: None Radiology Dr. María Thapa DO. [facility] Office: [phone] documented in this encounterWhite River Junction Va Medical CenterCombaGroup01-28-2025 NotePatient needs cardiac clearance before she undergoes [...] be at low risk for perioperative cardiac events.[facility] 12-09-2024 NotePatient: Margy Oakes Procedure Information Date/Time: 12/09/24 1030 Procedure: Coronary angiography Location: [facility] GRID INSPECTOR 2 BIPLANE / [facility] (Cath) Providers: Kimmy Bush MD Clinical information reviewed: Allergies Meds Physical Exam Airway Mallampati: III Cardiovascular Dental Pulmonary Abdominal Anesthesia Plan ASA 3 other (Conscious sedation) intravenous induction Anesthetic plan and risks discussed with patient. Use of blood products discussed with patient who consented to blood products. Plan discussed with attending and fellow. Additional Equipment RequestsUniversity Hospitals Cleveland Medical Center12-30-2024 Note [place] [facility] Note Reason for cardiology consult: Chest pain and shortness of breath Chief Complaint: Chest pain and shortness of breath HPI: Margy Oakes is a 79 y.o. female history of mild coronary artery disease per cardiac catheterization 2018, hypertension, hyperlipidemia and breast cancer Reports that [...] has a past medical history of Cancer ([facility]), Coronary artery disease, Hyperlipidemia, and Hypertension. Surgical [...] EKG today 11/10/2024 s (more content not included)...[facility]12-13-2024 NoteXR CHEST 2 VWS History: Shortness of [...] by Norberto Corrigan MD on 10/24/2024 4:16 [facility] 08-27-2024 History of Present illness Narrative* Lavinia Herring, ISSAC - 08/27/2024 10:15 AM EDTAssociated Order(s): L Inj/Asp: R knee Post-Procedure Diagnose(s): Primary osteoarthritis of right knee Images from the original note were not included. NAME: Margy Oakes : 1945 HISTORY OF PRESENT ILLNESS: Margy Oakes is an 79 y.o. @ female. (EST PT) RT KNEE PAIN, 2 YRS (2021), CONTINUES GETTING WORSE. WENT TO [facility] ER 07/19 AFTER A FALL - HASHAD PAIN SINCE LAST DEPO INJ 04/16 XRAY TODAY EPIC 08/27/24 XRAY [facility] 07/09/23 DEPO INJECTION 04/16/24 PHYSICAL THERAPY @ PT LINK- WITHIN THE LAST YEAR NOTES GOOD RELIEF FROM INJECTION UNTIL HER FALL. PAIN MEDIAL AND LATERAL KNEE. TAKING TYL. DENIES N/T, SWELLING. OCCAS GIVING OUT. PAST MEDICAL HISTORY: Past Medical History: Diagnosis Date Breast cancer (CMS/HCC) Hypertension (CMS/HCC) PAST SURGICAL HISTORY: Past Surgical History: Procedure Laterality Date APPENDECTOMY 1959 BREAST BIOPSY Right 1992 BREAST BIOPSY Left 1996 BREAST LUMPECTOMY Right 1993 BREAST LUMPECTOMY Left 1995 COLONOSCOPY 2019 FOOT SURGERY 2010 FOOT SURGERY [address] [facility] MOUTH SURGERY TONSILLECTOMY 194 TOTAL KNEE ARTHROPLASTY Left 2018 Dr Jeffries ALLERGIES: Allergies Allergen Reactions Pregabalin [...] knee osteoarthritis with valgus alignment. Lavinia Herring CHESTNUT TANNER-PROOF CARRIER L Inj/Asp: R knee on 08/27/2024 12:21 [...] develop for requiring urgent evaluation. Lavinia Herring APRN-PROOF CARRIER documented in this encounterHedrick Medical [id number] History of Present illness Narrative* Ignacio Augustine MD - 01/11/2024 9:40 AM EST Images from the original note were not included. [facility] [address] [place] [address], [address] [place] [address] * FOLLOW-UP NOTE ? 01/11/2024 Patient: Margy Oakes 1945 [id number] Physician: Ignacio Augustine MD, FACS CHIEF COMPLAINT Follow-up after lumbar [...] her on the gabapentin. Electronically signed by: Ignacio Augustine MD, FACS This note was created with the assistance of a speech recognition program with the goal of generating a timely record of the patient encounter. Inadvertent computerized sales and marketing executive errors related to syntax, spelling, homophones, and/or inaudibility may be present. documented in this [facility]03-01-2024 Instructions* Patient Instructions* Katelyn Stevens CMA - 01/11/2024 9:40 AM EST Patient was seen today by Dr. Augustine documented in this [facility]12-29-2023 Miscellaneous Notes* Telephone Encounter - Estrella Brown LPN - 11/09/2023 11:38 AM EST Margy calls into the office stating that she look all over for her MRI of the lumbar that she had done previously. Patient stated that Dr. Augustine told her if she could not find the old MRI to call theoffice so an order can be placed for a new MRI. Margy was informed that a order will be placed. documented in this [facility]12-29-2023 Telephone encounter Note* Telephone Encounter - Estrella Brown LPN - 11/09/2023 11:38 AM EST Margy calls into the office stating that she look all over for her MRI of the lumbar that she had done previously. Patient stated that Dr. Augustine told her if she could not find the old MRI to call theoffice so an order can be placed for a new MRI. Margy was informed that a order will be placed. [facility]07-20-2022 NotePROCEDURE: XR FOOT RT MIN 3 [...] Electronically authenticated by: NORBERTO IVAN Date: 2022-05-31 21:57[facility]06-21-2022 NoteCONSULTATION PROCEDURE DATE: 05/02/2022 PREOPERATIVE DIAGNOSIS: Anterior [...] will be followed up in the office. [facility] Signed and Approved by: DR BERNABE PRATHER . 05/09/2022 09:22:00[facility]06-21-2022 NoteCONSULTATION CONSULTATION DATE: 05/02/2022 CHIEF COMPLAINT: Right [...] we need to follow through with the fur dressing supervisor's recommendation. Subsequent to the visit today, the patient will be followed up for return visit in 2-3 months. The patient understands and would like to proceed. CC: Lucia Esteban M.D. [facility] Signed and Approved by: DR BERNABE PRATHER . 05/09/2022 09:22:00[facility]06-07-2022 NoteCONSULTATION PROCEDURE DATE: 04/18/2022 PREOPERATIVE DIAGNOSIS: 1. [...] No intervention was performed on her left. [facility] Signed and Approved by: DR BERNABE PRATHER . 04/25/2022 08:30:00[facility]06-07-2022 NoteCONSULTATION CONSULTATION DATE: 04/18/2022 CHIEF COMPLAINT: Right [...] like to proceed. CC: Lucia Esteban M.D. [facility] Signed and Approved by: DR BERNABE PRATHER . 04/25/2022 08:30:00[facility]05-24-2022 NotePROCEDURE: XR FOOT RT MIN 3 VIEWS, [...] Electronically authenticated by: NORBERTO IVAN Date: 2022-04-04 09:40[facility]05-24-2022 NotePROCEDURE: XR FOOT RT MIN 3 VIEWS, [...] Electronically authenticated by: NORBERTO IVAN Date: 2022-04-04 09:40[facility]05-17-2022 NoteCONSULTATION PROCEDURE DATE: 03/28/2022 PREOPERATIVE DIAGNOSIS: Bilateral [...] her legs were notable to the patient. [facility] Signed and Approved by: DR BERNABE PRATHER . 04/04/2022 12:22:00[facility]05-17-2022 NoteCONSULTATION CONSULTATION DATE: 03/28/2022 CHIEF COMPLAINT: Bilateral [...] like to proceed. CC: Lucia Esteban M.D. [facility] Signed and Approved by: DR BERNABE PRATHER . 04/04/2022 12:22:00[facility]04-19-2022 NoteCONSULTATION Consultation Date:02/28/2022 PAIN MANAGEMENT CONSULTATION CHIEF [...] in one month. CC: Lucia Esteban M.D. [facility] Signed and Approved by: DR BERNABE PRATHER . 03/07/2022 12:16:00[facility]04-05-2022 NoteCONSULTATION PAIN MANAGEMENT CONSULTATION CHIEF COMPLAINT: Bilateral leg pain. HISTORY OF PRESENT ILLNESS: This is a very pleasant, 77-year-old female, who was referred to us by physician assistant business manager, Loly Fox. The patient's family physician [...] Approved by: DR BERNABE PRATHER . 02/21/2022 11:53:00[facility]04-05-2022 NoteCONSULTATION PROCEDURE NOTE PREOPERATIVE DIAGNOSIS: Spasming along [...] Approved by: DR BERNABE PRATHER . 02/21/2022 11:53:00[facility] CenterEvaluation [facility]* Diagnosis Primary osteoarthritis of right knee- Primary Right knee pain, unspecified chronicity documented in this encounter [facility] HealthcareEvaluation note* Diagnosis Pulmonary nodules/lesions, multiple- Primary Other diseases of lung, not elsewhere classified Pulmonary nodule Other diseases of lung, not elsewhere classified documented in this encounter [facility] SystemEvaluation note* Diagnosis Preop testing- Primary Unspecified pre-operative examination Pulmonary nodule Other diseases of lung, not elsewhere classified SOB (shortness of breath) Shortness of breath documented in this encounter [facility] SystemEvaluation note* Diagnosis Neuropathy- Primary Mononeuritis of unspecified site documented in this encounter [facility] SystemEvaluation note* Diagnosis Neuropathy- Primary Mononeuritis of unspecified site documented in this encounter [facility] SystemEvaluation note* Diagnosis Acute pain of right knee- Primary Arthritis of right knee [facility] Diagnosis Moderate persistent asthma without complication- Primary documented [facility] this encounter [facility]* Diagnosis Pulmonary nodules/lesions, multiple- Primary Other diseases of lung, not elsewhere classified Dyspnea on exertion Other dyspnea and respiratory abnormality Moderate persistent asthma without complication documented in this encounter [facility]* Diagnosis Onset Date Resolution Status Admit Date Acute kidney injury superimp osed on CKD acute April 16, 2025 2 :50pm CKD (chronic kidney disease) stage 3, GFR 30-59 ml/min acute April 16 2:50pm Hyperlipidemia acute April 16, 2025 2:50pm Hypertensive chronic kidney disease with stage 1 through stage 4 chronic ki acute April 16, 2025 2 :50pm [facility] Work Phone: Evaluation noteNo assessment information available [facility] Work Phone: evaluation note* Diagnosis Pulmonary nodules/lesions, multiple- Primary Other diseases of lung, not elsewhere classified Moderate persistent asthma without complication documented in this encounter [facility] Center[facility] Discharge instructions Additional Instructions CT scan of the head is negative for acute injury.[facility] Work Phone: Hospital Discharge instructions Additional Instructions DISCHARGE INSTRUCTIONS FOR UPPER ENDOSCOPY WHAT TO EXPECT: - You may feel full, gassy or cramping after your procedure. In some cases, this may be from a few hours to a day. Walking may help relieve the discomfort. - Your throat may feel sore today from the scope that the doctor passed through your throat to visualize your stomach. Take a throat lozenge or suck on ice to ease the discomfort. - You may notice some streaks of blood in your sputum if the doctor has taken a biopsy. - You should begin to recover from anesthesia within 1 hour of the procedure, however may feel groggy for the next 24 hours. DO's AND DON'Ts: - Call your doctor right away if you have a hard abdomen, severe pain, vomiting or if you cough up large amounts of blood. - Call your doctor if you develop any rashes, hives or difficulty breathing. - If you take 81 mg aspirin for your heart it is safe to resume this medication. - If you take other blood thinner medications your doctor will instruct you when these can safely be resumed. - Do NOT drive for 24 hours. - Do NOT operate machinery such as power tools, lawn mowers, snow blowers, sewing machines, etc. for 24 hours. - Avoid alcoholic beverages and drugs for allergies, nerves, or sleep. - Do NOT stay alone. Do NOT leave your child unattended. - Do NOT make important personal or business decisions or sign any legal documents. - Eat solid foods and drink liquids in smaller amounts than usual until normal appetite returns. If you should experience an upset stomach, liquids high in sugar content (soda, Raghav-Aid, non-acid juices) are recommended. - Do NOT smoke. - Do take it easy today. You need not stay in bed, but avoid strenuous activities such as jogging or working out. FOLLOW UP & RECOMMENDATIONS: -Please call the office and make a follow up appointment to see me symptoms persist -Notify the doctor if you have any problems. -Follow up with PCP. -Office number [phone]. [facility] Work Phone: InstructionsNot on filedocumented in this [...] on filedocumented in this encounter [facility] SystemReason for referral (narrative)No reason for referral information availableOhiohealth Grove City [facility] Work Phone: Summary Purpose Family History No Family History Records Found Relationship Condition Age at Onset Recorded Date/T charbel father Malignant neoplasm Unknown mother Malignant neoplasm Unknown Relationship Condition Age at Onset Recorded Date/T charbel father Malignant neoplasm Unknown Malignant neoplasm of prostate Unknown Malignant neoplasm of bone Unknown Unknown mother Malignant neoplasm Unknown Malignant neoplasm of lung Unknown brother Malignant neoplasm of bone Unknown Advance Directives No Advanced Directives Records Found Advance Directive Response Recorded Date/ Time Advance Directives No April 16 2:46pm Reason for Referral Specialty Diagnoses / Procedures Referred By David t Referred To Contact Radiology Diagnoses Neuropathy Procedures MR lumbar spine without contrast Ignacio Augustine MD [address] [facility] [address] [place] [address] Referral ID Status Reason Start Date Expiration Date V isits Requested Visits Authorized [id number] Pending Review 11/09/2023 11/08/2024 1 1 Chief [...] m Unknown April 14, 2025 11:43 am Chief Complaint Admit Date Unknown March 28, 2025 5:58p m Unknown April 14, 2025 11:43 am ADELITA April 16, 2025 2:50p m Unknown April 16, 2025 4:11p m RENAL 6 WEEK F/U June 04, 2025 8:31 am Reason for Visit Admit Date Acute kidney [...] 4 chronic ki April 16, 2025 2:50pm Acute kidney injury superimposed on CKD June 04, 2025 8:31am Anemia of chronic disease June 04 8:31am Breast cancer June 04, 2025 8:31 am CKD (chronic kidney disease) stage 3, GF R 30-59 ml/min June 04, 2025 8:31am Hyperlipidemia June 04, 2025 8:31 am Hypertensive chronic kidney disease with stage 1 through stage 4 chronic ki June 04, 2025 8:31am Chief Complaint Admit Date Unknown March 28, 2025 5:58p m Unknown April 14, 2025 11:43 am ADELITA April 16, 2025 2:50p m Unknown April 16, 2025 4:11p m RENAL 6 WEEK F/U June 04, 2025 8:31 am Unknown June 16, 2025 11: 45am Chief Complaint Admit Date Unknown April 14, 2025 11:43 am ADELITA April 16, 2025 2:50p m Unknown April 16, 2025 4:11p m RENAL 6 WEEK F/U June 04, 2025 8:31 am Unknown June 16, 2025 11: 45am Anemia July 01, 2025 12 :36pm Chief Complaint Admit Date Unknown April 14, 2025 11:43 am ADELITA April 16, 2025 2:50p m Unknown April 16, 2025 4:11p m RENAL 6 WEEK F/U June 04, 2025 8:31 am Unknown June 16, 2025 11: 45am Anemia July 01, 2025 12 :36pm head inj, fall 06-29-25 July 01, 2025 1:09pm Chief Complaint Admit Date RENAL 6 WEEK F/U Margaret 24th, 2025 8:31 am Unknown June 16, 2025 11: 45am Anemia July 01, 2025 12 :36pm head inj, fall 06-29-25 July 01, 2025 1:09pm Anemia July 20, 2025 12:35pm Reason for Visit Admit Date Acute kidney injury superimposed on CKD June 04, 2025 8:31am Anemia of chronic disease June 04 8:31am Breast cancer June 04, 2025 8:31 am CKD (chronic kidney disease) stage 3, GF R 30-59 ml/min June 04, 2025 8:31am Hyperlipidemia June 04, 2025 8:31 am Hypertensive chronic kidney disease with stage 1 through stage 4 chronic ki June 04, 2025 8:31am Additional Source Comments INFORMATION SOURCE (unrecogn ized section and content) DATE CREATED AUTHOR 07/11/2019 [facility] DATE CREATED AUTHOR AUTHOR'S ORGANIZ ATION 06/15/2022 [facility] DATE CREATED AUTHOR AUTHOR'S ORGANIZ ATION 12/14/2024 [facility] DATE CREATED AUTHOR AUTHOR'S ORGANIZ ATION 02/07/2025 [facility] DATE CREATED AUTHOR AUTHOR'S ORGANIZ ATION 03/31/2025 [facility] DATE CREATED AUTHOR AUTHOR'S ORGANIZ ATION 05/26/2025 [facility] DATE CREATED AUTHOR AUTHOR'S ORGANIZ ATION 06/01/2025 [facility] DATE CREATED AUTHOR AUTHOR'S ORGANIZ ATION 06/12/2025 [facility] DATE CREATED AUTHOR AUTHOR'S ORGANIZ ATION 07/26/2025 The [facility] Source Comments (unrecognize d section and content) In the event this informatio n is protected by the Federal Confidentiality of Alcohol and Drug Abuse Patient Records regulations: The Federal rules restrict any use of the information to criminally investigate or prosecute any alcohol or drug abuse patient.[facility] Care Teams (unrecognized sec tion and content) Outside Sales Associate Relationship Specialty Start Date End Date Lucia Esteban MD [address] [address] PCP - External PCP Family Medicine 04/21/23 Lucia Esteban MD [address] [address] PCP - General Family Medicine 04/16/24 Outside Sales Associate Relationship Specialty Start Date End Date Lucia Esteban MD [address] [address] PCP - External PCP Family Medicine 04/21/23 Lucia Esteban MD [address] [address] PCP - General Family Medicine 04/16/24 Outside Sales Associate Relationship Specialty Start Date End Date Lucia Esteban MD [address] [address] PCP - General 05/04/15 Outside Sales Associate Relationship Specialty Start Date End Date Lucia Esteban MD [address] [address] PCP - General 05/04/15 Outside Sales Associate Relationship Specialty Start Date End Date Lucia Esteban MD [address] [address] PCP - General 05/04/15 Outside Sales Associate Relationship Specialty Start Date End Date Lucia Esteban MD [address] [address] PCP - General 05/04/15 Outside Sales Associate Relationship Specialty Start Date End Date Lucia Esteban MD [address] [address] PCP - General 05/04/15 Outside Sales Associate Relationship Specialty Start Date End Date Lucia Esteban MD [address] [address] PCP - General 05/04/15 Outside Sales Associate Relationship Specialty Start Date End Date Lucia Esteban MD [address] [address] PCP - General 05/04/15 Outside Sales Associate Relationship Specialty Start Date End Date Lucia Esteban MD [address] [address] PCP - External PCP Family Medicine 04/21/23 Lucia Esteban MD [address] [address] PCP - General Family Medicine 04/16/24 Outside Sales Associate Relationship Specialty Start Date End Date Lucia Esteban MD [address] [address] PCP - External PCP Family Medicine 04/21/23 Lucia Esteban MD [address] [address] PCP - General Family Medicine 04/16/24 Outside Sales Associate Relationship Specialty Start Date End Date Lucia Esteban MD [address] [place] [address] PCP - General 05/04/15 Outside Sales Associate Relationship Specialty Start Date End Date Lucia Esteban MD [address] [place] [address] PCP - General 05/04/15 Outside Sales Associate Relationship Specialty Start Date End Date Lucia Esteban MD [address] [address] PCP - General 05/04/15 Outside Sales Associate Relationship Specialty Start Date End Date Lucia Esteban MD [address] [address] PCP - General 05/04/15 Outside Sales Associate Relationship Specialty Start Date End Date Lucia Esteban MD [address] [address] PCP - External PCP Family Medicine 04/21/23 Lucia Esteban MD [address] [address] PCP - General Family Medicine 04/16/24 Outside Sales Associate Relationship Specialty Start Date End Date Lucia Esteban MD [address] [address] PCP - External PCP Family Medicine 04/21/23 Lucia Esteban MD [address] [place] [address] PCP - General Family Medicine 04/16/24 Team [...] April 16, 2025 End: April 16, 2025 Outside Sales Associate Relationship Specialty Start Date End Date Lucia Esteban MD [address] [place] [address] PCP - General 05/04/15 Outside Sales Associate Relationship Specialty Start Date End Date Lucia Esteban MD [address] [place] [address] PCP - General 05/04/15 Team Status: Active Member Role Status Dates NON STAFF Primary Care Provider Active Team Status: Inactive Member Role Status Dates Shyam Crowell MD Attending Provider Active Start : June 04, 2025 End: June 04, 2025 NON STAFF Primary Care Provider Active Start: June 04, 2025 End: June 04, 2025 Team Status: Inactive Member Role Status Dates Natasha Vazquez MD Attending Provider Active St art: June 16, 2025 End: June 16, 2025 Team Status: Inactive Member Role Status Dates Nicky Gaytan DO Attending Provider Active St art: July 01, 2025 End: July 01, 2025 Lucia Esteban MD Primary Care Provider Active Start: July 01, 2025 End: July 01, 2025 Team Status: Inactive Member Role Status Dates Lucia Esteban MD Primary Care Provider Active Start: July 01, 2025 End: July 01, 2025 Calvin Parekh PA-C Emergency Provider Active Start: July 01, 2025 End: July 01, 2025 Team Status: Active Member Role Status Dates Lucia Esteban MD Primary Care Provider Active Start: July 20, 2025 Nicky Gaytan DO Attending Provider Active St art: July 20, 2025 Nicky Gaytan , Other Provider Active Start: July 20, 2025 Reason for Visit (unrecogniz ed section and content) Reason Comments Pain Reason Comments New Patient CT: 11/14/2024PET CT : 12/02/2024 Lung Nodule Specialty Diagnoses / Procedures Referred By David t Referred To Contact Pulmonary Medicine Diagnoses Pulmonary nodule Natasha Vazquez MD [address] [place] [address] [address] [place] [address] Phone: tel: fax: [facility] [address] [address] Phone: tel: fax: Referral ID Status Reason Start Date Expiration Date Visits Requested Visits Authorized [id number] Pending Review Specialty Services Required 12/04/2024 12/04/2025 1 1 Reason Comments Med Refill Reason Onset Date Comments MRI 11/09/2023 Reason Comments Follow-up Ep review mri Reason Comments Follow-up Pulmonary nodules/le sions, multipleCXR: 12/25/2024 Reason Comments Follow-up Labs n completed CT 04/27 Cough decreased Shortness of Breath none Wheezing Some but small Goals (unrecognized section and content) Goals may [...] BE BASED ON THE PRIMARY CLINICAL RECORDS. [employer] provides no warranty or guarantee of the accuracy or completeness of information in this document.
--- NOTE | 2025-08-17 15:55 | PE_ITS ---
The [address] [address] Patient Name: EPI MUSTAFA MRN: [id number] date: 1945 Sex: F Assigned Patient Location: PETCT Current Patient Location: Accession/Order Number: [id number] Exam Date: 08/17/2025 14:58 Report Date: 08/18/2025 09:09 At the request of: PEYTON MCMILLAN MD Procedure: PET skull to mid thigh PET/CT WITH FUSION COMPARISON: 04/13/2025 CLINICAL DATA: Solitary pulmonary nodule. History of breast cancer. Following the intravenous administration of 13.34 mCi of FDG, SPECT imaging in 3 planes was performed from the level the orbits through the groin. Patient's blood glucose level at the time of injection was 116 mg/dL. Spiral unenhanced CT was also performed for anatomic localization. The PET and CT images were fused. This CT exam was performed using one or more following dose reduction techniques: Automated exposure control, adjustment of the mA and/or kV according to patient size, or use of iterative reconstruction technique. NECK: No enlarged or hypermetabolic cervical lymph nodes are seen. CHEST: There are tiny calcified and noncalcified mediastinal lymph nodes, without associated increased FDG uptake. There are also calcified left hilar granulomas. There is no developing pathologic lymphadenopathy however a tiny new focus of increased FDG uptake is seen at the inferior left hilum with SUV of 7.6. Axillary hemostasis clips are present. There is bilateral mastectomy. There is again respiratory motion which slightly limits evaluation of the lungs. Multiple pulmonary nodules are still seen, not significantly changed within limits of the respiratory motion on both studies. None of the nodules show significant associated increased FDG uptake. ABDOMEN/PELVIS: No developing hypermetabolic hepatic lesions are identified. No adrenal nodularity is seen. There are no enlarged or hypermetabolic abdominal or pelvic lymph nodes. There is physiologic activity involving bowel and bladder. The focus of increased uptake near the anus on the prior is no longer visualized. Splenic granulomas are seen. A few left-sided colonic diverticula are visualized. There is still a 3 cm left ovarian cyst. PET/PET skull to mid thigh IMPRESSION: DEVELOPING TINY NONSPECIFIC FOCUS OF INCREASED FDG UPTAKE IN THE LEFT INFERIOR HILUM. CONTINUED NON-FDG AVID PULMONARY NODULARITY. CONTINUED CT FOLLOW-UP IS SUGGESTED TO ASSESS STABILITY. NO OTHER DEVELOPING ABNORMALITIES. Impression dictated by: Billie Houston M.D. 08/18/2025 9:09 AM Dictation Location: [place] [address] Electronically authenticated by: [id number] Y Date: 08/18/2025 09:09
== END 2025-08-17 14:38 | disposition home or self-care (01) ==
LOC: PETCT 14:37
PROVIDERS: PCP Family Medicine; Visit Provider Internal Medicine Hematology & Oncology
DX: R91.1 Solitary pulmonary nodule (principal); Z85.3 Personal history of malignant neoplasm of breast; C50.912 Malignant neoplasm of unspecified site of left female breast; C50.911 Malignant neoplasm of unspecified site of right female breast; C78.01 Secondary malignant neoplasm of right lung; D63.1 Anemia in chronic kidney disease; D64.81 Anemia due to antineoplastic chemotherapy
CPT/HCPCS: 78815; A9552

== ENCOUNTER 2025-09-08 08:12 | Outpatient (RCR) | payer MEDICARE, SELFPAY ==
[2025-08-17 14:43] LABS: Hematocrit 33.6 % (36.0-48.0); Hemoglobin 11.0 g/dL (12.0-16.0); Immature Granulocytes Abs Auto 0.02 10^3/uL (0.00-0.03); Immature Granulocytes Pct Auto 0.3 % (0.0-0.5); Lymphocytes Absolute Auto 1.3 10^3/uL (1.2-3.8); Mean Corpuscular HGB Conc 32.7 g/dL (29.9-35.2); Mean Corpuscular Hemoglobin 32.1 pg (26.7-34.0); Mean Corpuscular Volume 98.0 fL (81.0-99.0); Platelet Count 220 10^3/uL (150-450); Red Blood Count 3.43 10^6/uL (4.20-5.40); White Blood Count 6.5 10^3/uL (4.0-11.0)
[2025-09-08 09:15] LABS: Hematocrit 33.9 % (36.0-48.0); Hemoglobin 11.0 g/dL (12.0-16.0); Immature Granulocytes Abs Auto 0.05 10^3/uL (0.00-0.03); Immature Granulocytes Pct Auto 0.7 % (0.0-0.5); Lymphocytes Absolute Auto 1.7 10^3/uL (1.2-3.8); Mean Corpuscular HGB Conc 32.4 g/dL (29.9-35.2); Mean Corpuscular Hemoglobin 32.2 pg (26.7-34.0); Mean Corpuscular Volume 99.1 fL (81.0-99.0); Platelet Count 260 10^3/uL (150-450); Red Blood Count 3.42 10^6/uL (4.20-5.40); White Blood Count 7.5 10^3/uL (4.0-11.0)
[2025-09-08 09:36] LABS: Alanine Aminotransferase 33 U/L (14-59); Albumin Globulin Ratio 1.1; Albumin Level 4.0 g/dL (3.4-5.0); Alkaline Phosphatase 95 U/L (46-116); Anion Gap 13.1; Aspartate Amino Transferase 21 U/L (15-37); Blood Urea Nitrogen 27.0 mg/dL (7.0-18.0); Calcium 9.2 mg/dL (8.5-10.1); Carbon Dioxide 28.2 mmol/L (21.0-32.0); Chloride 99 mmol/L (98-107); Estimated GFR (African America 49 (>=60 mL/min/1.73m^2); Estimated GFR (Non-African Ame 41 (>=60 mL/min/1.73m^2); Globulin 3.6 g/dL; Glucose 93 mg/dL (74-106); Potassium 4.3 mmol/L (3.5-5.1); Sodium 136 mmol/L (136-145); Total Protein 7.6 g/dL (6.4-8.2)
[2025-09-09 08:08] LABS: CA 15-3 38.5 U/mL (0.0-25.0)
== END 2025-09-11 23:59 | disposition home or self-care (01) ==
LOC: HEMC 08:12
PROVIDERS: PCP Family Medicine; Visit Provider Internal Medicine Hematology & Oncology
DX: C78.01 Secondary malignant neoplasm of right lung (principal); C50.912 Malignant neoplasm of unspecified site of left female breast; C50.911 Malignant neoplasm of unspecified site of right female breast; D64.81 Anemia due to antineoplastic chemotherapy; R91.1 Solitary pulmonary nodule
CPT/HCPCS: 36415; 80053; 85025; 86300

== ENCOUNTER 2025-09-08 08:18 | Outpatient (RCR) | payer MEDICARE, SELFPAY ==
[2025-09-08 09:48] LABS: Magnesium 1.6 mg/dL (1.8-2.4); Uric Acid 6.7 mg/dL (2.6-6.0)
[2025-09-08 09:56] LABS: Glucose Urine UA NEGATIVE (NEGATIVE)
[2025-09-08 10:59] LABS: Protein Creatinine Ratio Urine 0.13; Total Protein Urine Random 12.5 mg/dL (<=11.9)
[2025-09-08 11:45] LABS: Cast Seen? NONE SEEN #/LPF (NONE SEEN); Crystals Seen? None Seen #/HPF (None Seen)
== END 2025-09-11 23:59 | disposition home or self-care (01) ==
LOC: INF 08:18
PROVIDERS: PCP Family Medicine; Visit Provider Internal Medicine
DX: C50.919 Malignant neoplasm of unspecified site of unspecified female breast (principal); D63.8 Anemia in other chronic diseases classified elsewhere; E78.5 Hyperlipidemia, unspecified; I12.9 Hypertensive chronic kidney disease with stage 1 through stage 4 chronic kidney disease, or unspecified chronic kidney disease; N18.30 Chronic kidney disease, stage 3 unspecified; N17.9 Acute kidney failure, unspecified
CPT/HCPCS: 36415; 81001; 82306; 82570; 83735; 84100; 84156; 84550

== ENCOUNTER 2025-09-08 08:28 | Outpatient (RCR) | payer MEDICARE, SELFPAY ==
[2025-09-08 10:22] LABS: Cholesterol 214 mg/dL (<=200); HDL Cholesterol 94 mg/dL (40-60); Triglycerides 90 mg/dL (<=150); VLDL CHOLESTEROL 18.0 mg/dL
== END 2025-09-11 23:59 | disposition home or self-care (01) ==
LOC: INF 08:28
PROVIDERS: PCP Family Medicine; Visit Provider Internal Medicine Cardiovascular Disease
DX: E78.2 Mixed hyperlipidemia (principal); C50.912 Malignant neoplasm of unspecified site of left female breast; C50.911 Malignant neoplasm of unspecified site of right female breast; D63.8 Anemia in other chronic diseases classified elsewhere; I12.9 Hypertensive chronic kidney disease with stage 1 through stage 4 chronic kidney disease, or unspecified chronic kidney disease; N18.30 Chronic kidney disease, stage 3 unspecified; N17.9 Acute kidney failure, unspecified; R91.1 Solitary pulmonary nodule; C78.01 Secondary malignant neoplasm of right lung; D64.81 Anemia due to antineoplastic chemotherapy; E78.5 Hyperlipidemia, unspecified
CPT/HCPCS: 36415; 80053; 80061; 81001; 82306; 82570; 83735; 84100; 84156; 84550; 85025; 86300

== ENCOUNTER 2025-10-06 08:28 | Outpatient (RCR) | payer MEDICARE, SELFPAY ==
[2025-10-06 08:30] VITALS: BP 109/66; PULSE 62; TEMP 36.4; O2SAT 97
[2025-10-06 08:51] LABS: Hematocrit 30.0 % (36.0-48.0); Hemoglobin 9.6 g/dL (12.0-16.0); Immature Granulocytes Abs Auto 0.07 10^3/uL (0.00-0.03); Immature Granulocytes Pct Auto 1.0 % (0.0-0.5); Lymphocytes Absolute Auto 2.2 10^3/uL (1.2-3.8); Mean Corpuscular HGB Conc 32.0 g/dL (29.9-35.2); Mean Corpuscular Hemoglobin 32.5 pg (26.7-34.0); Mean Corpuscular Volume 101.7 fL (81.0-99.0); Platelet Count 222 10^3/uL (150-450); Red Blood Count 2.95 10^6/uL (4.20-5.40); White Blood Count 6.9 10^3/uL (4.0-11.0)
[2025-10-06 09:05] LABS: Alanine Aminotransferase 29 U/L (14-59); Albumin Globulin Ratio 1.1; Albumin Level 3.6 g/dL (3.4-5.0); Alkaline Phosphatase 102 U/L (46-116); Anion Gap 12.8; Aspartate Amino Transferase 22 U/L (15-37); Blood Urea Nitrogen 18.0 mg/dL (7.0-18.0); Calcium 8.8 mg/dL (8.5-10.1); Carbon Dioxide 28.3 mmol/L (21.0-32.0); Chloride 101 mmol/L (98-107); Estimated GFR (African America 39 (>=60 mL/min/1.73m^2); Estimated GFR (Non-African Ame 32 (>=60 mL/min/1.73m^2); Globulin 3.4 g/dL; Glucose 101 mg/dL (74-106); Potassium 5.1 mmol/L (3.5-5.1); Sodium 137 mmol/L (136-145); Total Protein 7.0 g/dL (6.4-8.2)
[2025-10-06] MEDS: EPOETIN ALFA 20,000 UNIT/2 ML VIAL 40000 UNIT SUBQ (09:29)
== END 2025-10-11 23:59 | disposition home or self-care (01) ==
LOC: HEMC 08:28
PROVIDERS: PCP Family Medicine; Visit Provider Internal Medicine Hematology & Oncology
DX: C78.01 Secondary malignant neoplasm of right lung (principal); Z85.3 Personal history of malignant neoplasm of breast; Z90.13 Acquired absence of bilateral breasts and nipples; D64.81 Anemia due to antineoplastic chemotherapy; R07.89 Other chest pain; R06.02 Shortness of breath; D63.1 Anemia in chronic kidney disease; N18.9 Chronic kidney disease, unspecified; M79.10 Myalgia, unspecified site; N17.9 Acute kidney failure, unspecified
CPT/HCPCS: 36415; 80053; 85025; 96372; G0463; J0885

== ENCOUNTER 2025-10-21 09:28 | Outpatient (OUT) | payer MEDICARE, SELFPAY ==
--- OUTSIDE RECORDS SUMMARY | 2025-10-21 09:43 | XMS_ITS | CCD ---
Author Organization [facility] Care Team Providers Care Narcotics Investigator Name Role Phone UNKNOWN, PROVIDER Admitting Unavailable [...] BERNABE Mejia Attending Unavailable CRESCENCIO, DR BERNABE Meija Admitting Unavailable CRESCENCIO, DR BERNABE Mejia Consulting [...] CHUA Consulting Unavailable Lucia Esteban MD Unavailable [phone] Lucia Esteban MD Primary Care Provider [phone] Lucia Esteban MD Primary Care Provider [phone] MARÍA THAPA Attending Unavailable MARÍA THAPA Referring Unavailable ESTEBAN, LUCIA A Primary Care Unavailable MARÍA THAPA Referring Unavailable ESTEBAN, LUCIA A Primary Care Unavailable Lucia Esteban MD Primary Care Provider [phone] ESTEBAN, LUCIA A Primary Care Unavailable SAID ISIDRA SIMMONS Admitting Unavailable SAID AHISIDRA GERBER Attending Unavailable ESTEBAN, LUCIA A Primary Care Unavailable ESTEBAN, LUCIA A Referring Unavailable ESTEBAN, LUCIA A Primary Care Unavailable Stefani Quezada MD Attending Provider [phone] Natasha Vazquez MD Attending Provider Shyam Crowell MD Attending Provider [phone] ESTEBAN, LUCIA A Referring Unavailable ESTEBAN, LUCIA A Primary Care Unavailable ESTEBAN, LUCIA A Referring Unavailable ESTEBAN, LUCIA A Primary Care Unavailable MARÍA THAPA Attending Unavailable NATASHA VAZUQEZ Referring Unavailable ESTEBAN, LUCIA A Primary Care Unavailable MARÍA THAPA Attending Unavailable ESTEBAN, LUCIA A Referring Unavailable ESTEBAN, LUCIA A Primary Care Unavailable MARÍA THAPA Attending Unavailable ESTEBAN, LUCIA A Referring Unavailable ESTEBAN, LUCIA A Primary Care Unavailable Shyam Crowell MD Attending Provider Lucia Esteban MD Primary Care Provider NON STAFF Primary Care Provider Unavailabl e RACHELLE, SAMAR Attending Unavailable RACHELLE, SAMAR Attending Unavailable RACHELLE, SAMAR Admitting Unavailable RACHELLE, SAMAR Attending Unavailable RACHELLE, SAMAR Attending Unavailable Ly DO, Nicky L Attending Provider Calvin Parekh PA-C Emergency Provider Shyam Crowell MD Attending Provider [phone] Natasha Vazquez MD Attending Provider Lucia Esteban MD Primary Care Provider Ly DO, Nicky L Other Provider Taylor, Natasha Admitting Unavailable Taylor, Natasha Attending [...] Natasha Admitting Unavailable Taylor, Natasha Attending Unavailable SocratesShyam Admitting Unavailable SocratesShyam Attending Unavailable Lucia Esteban MD Unavailable [phone] Lucia Esteban MD Primary Care Provider LORI, LUCIA A Referring Unavailable ESTEBAN, LUCIA A Primary Care Unavailable RACHELLE, SAMAR Referring Unavailable ESTEBAN, LUCIA A Primary Care Unavailable ESTEBAN, LUCIA A Primary Care Unavailable ESTEBAN, LUCIA A Primary Care Unavailable JIMMIE BUTTERFIELD Attending Unavailable SHRYOCK, NELY Referring Unavailable ESTEBAN, LUCIA A Primary Care Unavailable SHRYOCK, NELY Referring Unavailable ESTEBAN, LUCIA A Primary Care Unavailable BRANNON CARRANZA Attending Unavailable BRANNON CARRANZA Attending Unavailable BRANNON CARRANZA Referring Unavailable BRANNON CARRANZA Attending Unavailable Allergies Allergy ClassificationReported Allergen(s)Allergy TypeDate of OnsetReaction(s) Facility (3 sources)LevamisoleDrug Eboupst95-45-6587Zqd [facility] Repository (1 source)PenicillinDrug Oixpqab36-69-0234Vwe [facility] Repository (2 sources)pregabalinDrug Xllxvjk36-60-0241Mzm [facility] Repository (15 sources)Penicillins; Translations: [PENICILLINS]Drug allergy (disorder) 98-80-1607doy like [facility] Repository (14 sources)PenicillinsDrug Bspxpzwyrth04-19-5911IctymlmbAAUF Healthcare Work Phone: (20 sources)Pregabalin; Translations: [PREGABALIN]Allergy to jmtmywory78-19-6056 Dizziness, Headache, Other, Shortness of breathNOMS Healthcare (20 sources)Promethazine; Translations: [PROMETHAZINE]Drug Hzvqlgk69-51-7832 Anxiety, Dizziness, Hallucinations, Itching, Other, Palpitations, Other (See Comments)[facility] (7 sources)PenicillinsPropensity to adverse reactions to kcro37-17-9517Vdtnc (See Comments)[facility] (13 sources)pregabalinDrug Iwrvfve14-13-5007Bbkpb (See Comments)[facility] (6 sources)PenicillinsPropensity to adverse reactions to sdss68-50-6052Mbdgs (See Comments)[facility] (9 sources)fentaNYL; Translations: [fentanyl]Drug Xlumhjk56-34-0070ziraoql [facility] (1 source)PenicillinsDrug allergy (disorder)78-28-5114FvfgurccyWhite Hospital Repository (1 source)pregabalinDrug Jjilxhe30-67-9060JdemooxxkWhite Hospital Repository (1 source)PromethazineDrug Iaualaz93-56-1716BrbeminroWhite Hospital Repository Medications Current Medications MedicationDrug Class(es)DatesSig (Normalized)Sig (Original)[id number] 200 actuat albuterol 0.09 mg/actuat metered dose inhaler (20 sources)beta2-Adrenergic AgonistStart: 63-35-8555xrje 1 puff(s) by inhalation every six hours as needed for wheezingAlbuterol Sulfate (Ventolin Hfa) 90 mcg/actuation HFA aerosol inhaler Active 2 PUFF INHALATION Every 6 hours as needed for shortness of breath or wheezing April 16, 2025 12:00am Complies with drug therapyStart: 53-36-1141xcsr 3 mL by inhalation four times daily as needed for wheezingalbuterol (PROVENTIL,VENTOLIN) 2.5 mg /3 mL (0.083 %) nebulizer solution Indications: Moderate persistent asthma without complication Inhale 3 mL (2.5 mg total) by nebulization 4 (four) times a day as needed for wheezing. 75 mL 12 02/19/2025 ActiveStart: 63-39-6077wtdl 2 puff(s) by inhalation every six hours as needed for wheezingalbuterol (PROVENTIL HFA;VENTOLIN HFA) 90 mcg/actuation inhaler Indications: Moderate persistent ast hma without complication Inhale 2 puffs every 6 (six) hours as needed for wheezing. 18 g 11 02/19/2025 Activetake 2 puff(s) by inhalation every four hours for wheezingalbuterol HFA 90 mcg/act inhaler Inhale 2 puffs every 4 (four) hours if needed for wheezing Activeamitriptyline hydrochloride 10 mg oral tablet (20 sources)Tricyclic AntidepressantStart: 27-08-3532frqs 2 tablets by mouth once daily at bedtimeAmitriptyline 10 mg tablet Active 20 MG PO Daily at bedtime April 16, 2025 12:00am Complies with drug therapyamitriptyline (Elavil) 10 MG tablet Activeapple cider vinegar 500 mg oral tablet (3 sources) End: 92-63-6385fxqdb cider vinegar 500 mg tablet Take 450 mg by mouth daily. 12/11/2024 Discontinued (Therapy completed)ascorbic acid 60 mg / beta carotene 5000 unt / copper sulfate 40 mg / dl-alpha tocopheryl acetate 30 unt / sodium selenite 0.04 mg / zinc oxide 40 mg oral tablet (14 sources)Vitamin CMultiple Vitamin (Multivitamin Adult) tablet as directed Orally Activeatorvastatin 20 mg oral tablet (20 sources)HMG-CoA Reductase InhibitorStart: 63-08-0752iqgg 4 tablets by mouth once daily at bedtimeAtorvastatin 20 mg tablet Active 80 MG PO Daily at bedtime April 16, 2025 12:00am Complies with drug therapyStart: 55-27-4715wrhm 1 tablet by mouth once daily at bedtimecholecalciferol 0.05 mg oral capsule (13 sources)Vitamin Dtake 1 capsule by mouth once daily in the morning cholecalciferol, vitamin D3, 2,000 units capsule Indications: vitamin D deficiency Take 1 capsule (2,000 Units total) by mouth in the morning. Indications: low vitamin D levels. Activetake 1 capsule by mouth in the morning cholecalciferol, vitamin D3, 2,000 units capsule Take 1 capsule (2,000 Units total) by mouth in themorning. ActiveDULoxetine 60 mg delayed release oral capsule (20 sources)Serotonin and Norepinephrine Reuptake InhibitorStart: 80-90-2369saky 1 capsule by mouth once dailyDuloxetine (Cymbalta) 60 mg capsule,delayed release(DR/EC) Active 60 MG PO Daily April 16, 2025 12:00am Complies with drug therapy1 ml epoetin jose 83612 unt/ml injection (12 sources)Erythropoiesis-stimulating AgentStart: 31-79-4671gdvrgm 34873 [IU] by subcutaneous injection every other weekEpoetin Jose (Procrit) 40,000 unit/mL solution Active 20284 UNIT SUBCUT .Q2wks April 16, 2025 12:00am Complies with drug therapyepoetin jose (Epogen,Procrit) 47054 UNIT/ML injection Inject 40,000 Units under the skin Activeerythromycin 0.005 mg/mg ophthalmic ointment (13 sources)Macrolide, Macrolide AntimicrobialStart: 71-88-6792fhvfihkevark (ILOTYCIN) ophthalmic ointment 06/24/2020 Activefluticasone / salmeterol (2 sources)Corticosteroid, beta2-Adrenergic AgonistStart: 02-19-2025 End: 32-34-2421lryi 1 puff(s) by inhalation in the morningfluticasone propion- salmeteroL (ADVAIR DISKUS) 250-50 mcg/dose DISKUS Indications: Moderate persiste nt asthma without complication Inhale 1 puff in the morning and 1 puff before bedtime. 60 each 11 02/19/2025 02/20/2025 DiscontinuedFluticasone Furoate-Vilanterol (16 sources)Corticosteroid, beta2-Adrenergic AgonistStart: 20-61-3214Ssxpe: 48-70-1639Zpfnqukamck Furoate-Vilanterol (Breo Ellipta) 200-25 mcg/dose blister with device Active 1 INH INHALATION Daily April 16, 2025 12:00am Complies with drug therapyStart: 25-76-5255Dwovsyfavln Furoate-Vilanterol (Breo Ellipta) 200- 25 mcg/dose blister with device Active 1 INH INHALATION Daily April 16, 2025 12:00amStart: 07-61-7410uhyq 1 puff(s) by inhalation in the morningfluticasone furoate-vilanteroL (BREO ELLIPTA) 200-25 mcg/dose blister with device Indications: Moderate persistent asthma without complication Inhale 1 puff in the morning. 60 each 6 02/20/2025 ActiveFluticasone Furoate-Vilanterol (Breo Ellipta) 200-25 MCG/ACT aerosol powder Inhale Activegabapentin 300 mg oral capsule (20 sources)Anti-epileptic AgentStart: 90-13-6354llmj 1 capsule by mouth three times dailyGabapentin 300 mg capsule Active 300 MG PO Three times daily April 16, 2025 12:00am Complies with drug therapyStart: 08-23-2022 End: 84-65-4794wczo 1 capsule by mouth three times dailygabapentin (NEURONTIN) 300 mg capsule Indications: Meningioma (CMS-HCC) Take 1 capsule (300 mg total) by mouth 3 (three) times a day. 90 capsule 3 08/23/2022 Activetake 1 capsule by mouth every twelve hoursgabapentin (Neurontin) 300 MG capsule 1 capsule every 12 (twelve) hours ActivehydroCHLOROthiazide 12.5 mg oral capsule (10 sources)Thiazide DiureticStart: 01-29-2025 End: 51-24-7298hpkz 1 capsule by mouth in the morninghydroCHLOROthiazide (MICROZIDE) 12.5 mg capsule Take 1 capsule (12.5 mg) by mouth in the morning. 01/29/2026 Activetake 1 tablet by mouth once dailyhydroCHLOROthiazide (HYDRODiuril) 12.5 MG tablet Take 12.5 mg by mouth Daily Zulajg65 hr isosorbide mononitrate 30 mg extended release oral tablet (17 sources)Nitrate Vasodilator End: 71-39-1182qldrhscwjq mononitrate ER (Imdur) 30 MG 24 hr tablet 1 (one) time each day at the same time Activeletrozole 2.5 mg oral tablet (14 sources)Aromatase InhibitorStart: 45-46-8647bnxr 1 tablet by mouth once dailyLetrozole 2.5 mg tablet Active 2.5 MG PO Daily April 16, 2025 12:00am Complies with drug therapylisinopril 10 mg oral tablet (20 sources)Angiotensin Converting Enzyme InhibitorStart: 31-71-3377bxyi 1 tablet by mouth once dailyLisinopril 10 mg tablet Active 10 MG PO Daily April 16, 2025 12:00am Complies with drug therapymeclizine hydrochloride 25 mg oral tablet (13 sources)Antiemetictake 1 tablet by mouth three times daily as needed meclizine (ANTIVERT) 25 mg tablet Indications: motion sickness Take 1 tablet (25 mg total) by mouth3 (three) times a day as needed Indications: motion sickness. Activemeloxicam 15 mg oral tablet (3 sources)Nonsteroidal Anti-inflammatory Drug End: 66-01-7946fbjh 1 tablet by mouth in the morningmeloxicam (MOBIC) 15 mg tablet Take 1 tablet (15 mg total) by mouth in the morning. 12/11/2024 Disco ntinued (Therapy completed)24 hr metoprolol succinate 25 mg extended release oral tablet (20 sources)beta-Adrenergic BlockerStart: 50-57-4570dtru 1 tablet by mouth once dailyMetoprolol Succinate 25 mg tablet extended release 24 hr Active 25 MG PO Daily April 16, 2025 12:00am Complies with drug therapymetoprolol succinate XL (Toprol-XL) 25 MG 24 hr tablet metoprolol succinate ER 25 mg tablet,extended release 24 hr Activemontelukast 10 mg oral tablet (17 sources)Leukotriene Receptor AntagonistStart: 74-16-5186nidy 1 tablet by mouth once daily at bedtimeMontelukast (Singulair) 10 mg tablet Active 10 MG PO Daily at bedtime April 16, 2025 12:00am Complies with drug therapymultivit- minerals/ferrous fum (MULTI VITAMIN ORAL) (13 sources)multivit-minerals/ferrous fum (MULTI VITAMIN ORAL) Take by mouth. Activemultivit-minerals/ferrous fum (MULTI VITAMIN ORAL) Take by mouth. 0 Active omeprazole 20 mg delayed release oral capsule (20 sources)Proton Pump InhibitorStart: 12-11-2024 End: 26-43-1296cgxv 1 capsule by mouth at bedtimeomeprazole (PriLOSEC) 20 mg capsule TAKE 1 CAPSULE(20 MG) BY MOUTH IN THE MORNING AND AT BEDTIME 180 capsule 3 12/11/2024 Activepantoprazole 40 mg delayed release oral tablet (7 sources)Proton Pump InhibitorStart: 25-24-7591auiy 1 tablet by mouth once dailyPantoprazole 40 mg tablet,delayed release (DR/EC) Active 40 MG PO Daily April 16, 2025 12:00am Complies with drug therapyprochlorperazine 10 mg oral tablet (12 sources)PhenothiazineStart: 65-88-6760bnca 1 tablet by mouth every eight hours as needed for nausea and vomitingProchlorperazine Maleate (Compazine) 10 mg tablet Active 10 MG PO Every 8 hours as needed for nausea and vomiting April 16, 2025 12:00am Complies with drug therapy Completed/Discontinued Medications MedicationDrug Class(es)DatesSig (Normalized)Sig (Original)acetaminophen 325 mg oral capsule (20 sources)Start: 04-16-2025 End: 49-34-5660hlcw 1 capsule by mouth every six hours as neededAcetaminophen 325 mg capsule Discontinued 325 MG PO Every 6 hours as needed April 16, 2025 12:00am June 22, 2025 1:25pmacetaminophen (Tylenol Extra Strength) 500 MG tablet every 6 (six) hours Activetake 2 tablets by mouth every six hours as needed for painacetaminophen (TYLENOL) 325 mg tablet Indications: pain Take 2 tablets (650 mg total) by mouth every 6 (six) hours as needed for pain Indications: pain. Activeacetaminophen 500 mg / diphenhydrAMINE hydrochloride 25 mg oral tablet (20 sources)Histamine-1 Receptor AntagonistStart: 04-16-2025 End: 03-26-0453iars 1 tablet by mouth once daily at bedtime as needed Diphenhydramine-Acetaminophen (Acetaminophen Pm Extra Str) 25-500 mg tablet Discontinued 1 TAB PO Daily at bedtime as needed June 04, 2025 12:00am June 22, 2025 1:26pmaspirin 81 mg oral tablet (18 sources)Platelet Aggregation Inhibitor, Nonsteroidal Anti-inflammatory Drug Start: 04-16-2025 End: 92-62-7107ursf 1 tablet by mouth once dailyAspirin 81 mg tablet Discontinued 81 MG PO Daily April 16, 2025 12:00am June 22, 2025 1:25pm aspirin 81 mg chewable tablet Chew 1 tablet (81 mg total) and swallow in the morning. prevention. Activebenzonatate 100 mg oral capsule (12 sources)Non-narcotic AntitussiveStart: 04-16-2025 End: 57-30-0209goig 1 capsule by mouth twice daily as neededBenzonatate 100 mg capsule Discontinued 100 MG PO Twice daily as needed April 16, 2025 12:00am June 22, 2025 1:26pm5 ml bupivacaine hydrochloride 5 mg/ml injection (8 sources)Amide Local AnestheticStart: 09-23-2025 End: 75-81-6490vyovkuhmjzh PF (Marcaine) 0.5 % injection 1 mLStart: 09-23-2025 End: mL, Injection, Once PRN Procedure, Starting on Sun09/23/25 at 0910, For 1 doseStart: 09-02-2025 End: 63-78-2391awuzgisqzek PF (Marcaine) 0.5 % injection 2 mLStart: 09-02-2025 End: mL, Injection, Once PRN Procedure, Starting on Sun09/02/25 at 1023, For 1 doseibuprofen 200 mg oral tablet (7 sources)Nonsteroidal Anti-inflammatory DrugStart: 04-16-2025 End: 27-11-6223lert 1 tablet by mouth onceIbuprofen 200 mg tablet Discontinued 200 MG PO Once April 16, 2025 12:00am April 16, 2025 3:01pm1 ml methylPREDNISolone acetate 40 mg/ml injection (16 sources)CorticosteroidStart: 09-23-2025 End: 87-29-7141biilinBRQVXOVqukva acetate (DEPO-Medrol) injection 40 mgStart: 09-23-2025 End: 81-24-665481 mg, Intra-articular, Once PRN Procedure, Starting on Sun09/23/25 at 0910, For 1 doseStart: 09-02-2025 End: 13-07-2164jjdhecICDQOTSemoxz acetate (DEPO-Medrol) injection 40 mgStart: 09-02-2025 End: 74-69-038522 mg, Intra-articular, Once PRN Procedure, Starting on Sun09/02/25 at 1023, For 1 doseStart: 02-06-2025 End: 67-28-0370cbmtdzTRCKWPRtbawp acetate (DEPO-Medrol) injection 40 mgStart: 02-06-2025 End: 42-32-280903 mg, Intra-articular, Once PRN Procedure, Starting on Sun02/06/25 at 1320, For 1 doseStart: 08-27-2024 End: 78-86-6387edwyeuRXNJZZWszigy acetate (DEPO-Medrol) injection 40 mgStart: 08-27-2024 End: 20-80-567221 mg, Intra-articular, Once PRN Procedure, Starting on Sun08/27/24 at 1221, For 1 doseondansetron 4 mg disintegrating oral tablet (12 sources)Serotonin-3 Receptor AntagonistStart: 04-16-2025 End: 94-10-3152eqac 1 tablet by mouth every eight hours as neededOndansetron 4 mg tablet,disintegrating Discontinued 4 MG PO Every 8 hours as needed April 16, 2025 12:00am June 22, 2025 1:27pmpalbociclib 100 mg oral capsule (14 sources)Kinase InhibitorStart: 04-16-2025 End: 77-63-1674Louzgswbtjl (Ibrance) 100 mg capsule Discontinued 100 MG PO Daily April 16, 2025 12:00am April 16, 2025 3:02pm administer on days 1 through 21 of a 28-day treatment cycle End: 96-45-6562nvkt 1 capsule by mouth once daily at mealtimepalbociclib (Ibrance) 125 MG chemo capsule Take 125 mg by mouth Daily with meals. Swallow whole. 09/02/2025 Discontinued (Therapy completed)predniSONE 5 mg oral tablet (3 sources) End: 89-17-8149gbwc 1 tablet by mouth in the morningpredniSONE (DELTASONE) 5 mg tablet Take 1 tablet (5 mg total) by mouth in the morning. 02/19/2025 Di scontinuedsucralfate 1000 mg oral tablet (12 sources)Aluminum ComplexStart: 04-16-2025 End: 01-52-7355dvkj 1 tablet by mouth twice dailySucralfate (Carafate) 1 gram tablet Discontinued 1 GM PO Twice daily April 16, 2025 12:00am June 22, 2025 1:31pmUNABLE TO FIND (7 sources) End: 32-39-1701asas 1000 mg by mouth in the morningUNABLE TO FIND Take 1,000 mg by mouth in the morning. Med Name: CBD oil . 12/22/2024 Discontinued (Therapy completed)take 1000 mg by mouth in the morningUNABLE TO FIND Take 1,000 mg by mouth in the morning. Med Name: CBD oil . Activetake 1000 mg by mouth in the morningUNABLE TO FIND Take 1,000 mg by mouth in the morning. Med Name: CBD oil . 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; Translations: [Unstable angina]Onset: 74-41-2354Liywjil Deficiency and other anemia (15 sources)Anemia of chronic disease; Translations: [Anemia in other chronic diseases classified elsewhere]56-23-9012LwyvywiBpnxbsidvj and other anemia (1 source)Anemia in other chronic diseases classified elsewhere; Translations: [Anemia of other chronic disease]43-31-3116DzjravjFwlrasdsbw and other anemia (1 source)Anemia, unspecified; Translations: [Anemia, unspecified]Onset: 44-34-3866UtjasaknDwczvwszs of lipid metabolism (20 sources)Hyperlipidemia; Translations: [Hyperlipidemia, unspecified]Onset: 260183-89-4958TtpkvqiGgixbrdtbgyslb and diverticulitis (13 sources)Diverticulosis of large intestine; Translations: [Diverticulosis of large intestine without perforation or abscess without bleeding]Onset: 127548-17-9146CsoemloEslrtsmeuy disorders (11 sources)Gastroesophageal reflux disease without esophagitis; Translations: [Gastro-esophageal reflux disease without esophagitis]Onset: 12-11-2024 58-59-0705SvdevceAxtjevzsv hypertension (2 sources)Essential (primary) hypertension; Translations: [Essential (primary) hypertension]Onset: 46-84-2220EpsfmrpRzmbwmydeguaucxm hemorrhage (1 source)Melena; Translations: [Melena]Onset: 83-96-3280OaxavmexEfoniigh; including migraine (1 source)Headache; including migraineOnset: 65-52-0249Uddcnedvqzex with complications and secondary hypertension (18 sources)Chronic kidney disease due to hypertension; Translations: [Hypertensive chronic kidney disease withstage 1 through stage 4 chronic kidney disease, or unspecified chronic kidney disease]75-21-9832QnrsheeUtlnuxh and fatigue (1 source)FatigueOnset: 76-98-7724FsctrgucBxizvuhcdcrtgs (20 sources)Primary osteoarthritis, right ankle and foot; Translations: [Osteoarthritis of right knee joint]Onset: 24-06-1372DxcdemgRjjrz and unspecified benign neoplasm (13 sources)Neoplasm of meninges; 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, unspecified]Onset: 545489-08-5709PzjdmwvJlmxa connective tissue disease (5 sources)Pain in right foot; Translations: [PAIN IN RIGHT FOOT]Onset: 16-18-1429XharlyzxHwlmg connective tissue disease (5 sources)Other muscle spasm; Translations: [OTHER MUSCLE SPASM]Onset: 14-04-5257ZutditzbAetkt connective tissue disease (1 source)Pain in right leg; Translations: [PAIN IN RIGHT LEG]Onset: 03-31-2022 EpisodicOther connective tissue disease (5 sources)Pain in left leg; Translations: [PAIN IN LEFT LEG]Onset: 02-16-2022 EpisodicOther connective tissue disease (6 sources)Trochanteric bursitis of left hip; Translations: [Trochanteric bursitis, left hip]82-49-5270BqagnvajTdhmz injuries and conditions due to external causes (2 sources)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; Translations: [Unspecified injury of head, initial encounter]45-28-0850FxuigacrFbdak injuries and conditions due to external causes (1 source)Unspecified injury of head, initial encounter; Translations: [Unspecified injury of head, initial encounter]Onset: 06-11-4507NbsyuxwtQfrex lower respiratory disease (15 sources)Multiple nodules of lung; Translations: [Other nonspecific abnormal finding of lung field]Onset: 454995-85-0578BamujikcJwmcr lower respiratory disease (2 sources)Nodule of lung; Translations: [Solitary pulmonary nodule]12-11-2024 EpisodicOther lower respiratory disease (1 source)Dyspnea; Translations: [Shortness of breath]15-84-8231UtobwfhaIsqeb lower respiratory disease (2 sources)CoughOnset: 86-37-7440WldzjabiDjvlz lower respiratory disease (1 source)Shortness of breathOnset: 46-30-7537SfchjsjkAkhls lower respiratory disease (1 source)WheezingOnset: 69-10-2677DbnceggrMbwvt nervous system disorders (1 source)Other specified mononeuropathies; Translations: [OTHER SPECIFIED MONONEUROPATHIES]Onset: 57-87-3668DzgsbspPmoiy nervous system disorders (1 source)Polyneuropathy, unspecified; Translations: [POLYNEUROPATHY UNSPECIFIED]Onset: 26-09-1700HrfowumFlnyc nervous system disorders (2 sources)Neuropathy; Translations: [Polyneuropathy, unspecified]11-09-2023 ChronicOther non-traumatic joint disorders (4 sources)Arthritis of right ucry27-09-0339QqsrhftWlhjg non-traumatic joint disorders (5 sources)Pain in right ankle and joints of right foot; Translations: [PAIN IN RIGHT ANKLE]Onset: 96-39-5405ZtjbabcuXkizd non-traumatic joint disorders (6 sources)Pain in right knee; Translations: [Pain in joint, lower leg] 57-06-0041IinfwalsSjxgy non-traumatic joint disorders (4 sources)Hip pain; Translations: [Pain in left hip]46-59-4764RvhwvcjsDdkgk nutritional; endocrine; and metabolic disorders (1 source)Hypomagnesemia; Translations: [Hypomagnesemia]Onset: 35-73-4444Msicllu Residual codes; unclassified (1 source)Other specified postprocedural states; Translations: [OTH SPECIFIED POSTPROCEDURAL STATES]Onset: 32-86-5712UkhggspbJltqtneqhjww (1 source)New PatientOnset: 82-64-1487Eamhvsibqnya (1 source)Lung NoduleOnset: 96-54-1731Qkloevavexuf (2 sources)Animal BiteOnset: 05-24-2025 Past or Other Problems Problem ClassificationProblemDateDocumented DateEpisodic/ChronicAcute and unspecified renal failure (19 sources)Acute renal failure syndrome; Translations: [Acute kidney failure, unspecified]Onset: [id number] of breast (11 sources)History of malignant neoplasm of breast; Translations: [Personal history of malignant neoplasm of breast]Onset: 444254-32-9223VuxtqtulH Codes: Natural/environment (1 source)Bitten by cat, initial encounter; Translations: [Bitten by cat, initial encounter]Onset: 35-12-7156LtkskdsvXtsal and electrolyte disorders (1 source)Hypo-osmolality and hyponatremia; Translations: [Hypo-osmolality and hyponatremia]Onset: 59-47-0555MggkfklgFqen disorders (13 sources)Mood disordersOnset: 448993-06-7361Xpuywvgixia chest pain (5 sources)Other chest pain; Translations: [Chest pain, unspecified]Onset: 32-31-1895PdtpdeqsVchse connective tissue disease (4 sources)Pain in right lower leg; Translations: [PAIN IN RIGHT LOWER LEG] Onset: 90-16-2492YblgmrnlCprjg connective tissue disease (1 source)Pain in left lower leg; Translations: [PAIN IN LEFT LOWER LEG]Onset: 03-82-7135GavszjspBweok connective tissue disease (1 source)Pain in left foot; Translations: [PAIN IN LEFT FOOT]Onset: 03-03-2022 EpisodicOther gastrointestinal disorders (13 sources)Dark stools; Translations: [Other fecal abnormalities]Onset: 250182-03-5727YizlsmfkKgsnb lower respiratory disease (2 sources)Solitary pulmonary nodule; Translations: [Solitary pulmonary nodule] Onset: 78-18-6469CnrpirkzWyggf lower respiratory disease (3 sources)Shortness of breath; Translations: [Shortness of breath]Onset: 54-71-5992LrldqwfvGcecj lower respiratory disease (2 sources)Other nonspecific abnormal finding of lung field; Translations: [Other nonspecific abnormal findingof lung field]Onset: 51-22-2978FvbtksifWqabp lower respiratory disease (6 sources)Dyspnea on exertion; Translations: [Other forms of dyspnea]Onset: 308131-35-6014RzrsgcviEjfni lower respiratory disease (3 sources)Other forms of dyspnea; Translations: [Other forms of dyspnea]Onset: 30-41-8756VahjrigpDfbpb lower respiratory disease (1 source)Wheezing; Translations: [Wheezing]Onset: 11-03-3038NulxdvgbMlkjr non- traumatic joint disorders (5 sources)Pain in left ankle and joints of left foot; Translations: [PAIN IN LEFT ANKLE]Onset: 14-51-6665QkqfkawhQycoy screening for suspected conditions (not mental disorders or infectious disease) (13 sources)History of adenomatous polyp of colon; Translations: [Encounter for screening for malignant neoplasm of colon]Onset: 679056-04-4208Ufywuqrq Residual codes; unclassified (1 source)Pain, unspecified; Translations: [Pain, unspecified]Onset: 12-02-2024 EpisodicUnclassified (13 sources)Onset: [id number] Results Test NameValueInterpretationReference RangeFaalegent health mercy hospitalNo Panel Informationon 33-39-3023QrqqttgLOLA Dickey 09/23/2025 12:27 PM L Inj/Asp: R knee on 09/23/2025 9:10 AM Indications: pain Details: 22 G needle, anterolateral approach Medications: 40 mg methylPREDNISolone acetate 40 MG/ML; 1 mL bupivacaine PF 0.5 % Outcome: tolerated well, no immediate complications E UTILIZING ASEPTIC TECHNIQUE PT GIVEN INJECTION IN RIGHT KNEE, NEUROVASC INTACT S/P INJ, TOLERATED WELL Procedure, treatment alternatives, risks and benefits explained, specific risks discussed. Consent was given by the patient. Patient was prepped and draped in the usual sterile fashion. [facility] Panel Informationon 14-76-4980IolxpvlLOLA Dickey 09/02/2025 12:59 PM L Inj/Asp: L greater trochanteric bursa on 09/02/2025 10:23 AM Indications: pain Details: 21 G needle, lateral approach Medications: 40 mg methylPREDNISolone acetate 40 MG/ML; 2 mL bupivacaine PF 0.5 % Outcome: tolerated well, no immediate complications UTILIZING ASEPTIC TECHNIQUE PT GIVEN INJECTION IN LEFT HIP BURSA NEUROVASC INTACT S/P INJ, TOLERATED WELL Procedure, treatment alternatives, risks and benefits explained, specific risks discussed. Consent was given by the patient. Patient was prepped and draped in the usual sterile fashion. Community HealthXR Hip - left 3 Viewson 44-75-6679Hkwqphq Result: AP and Lateral weight bearing left hip: Bones: The bony structures, including the femoral head, neck, and acetabulum, appear with normal limits and expected osteopenia. There is no evidence of fractures, dislocations, or bony lesions, cortical outlines are intact, and trabecular patterns are preserved. Small area of thickening to cortex with inferior to lesser troch on proximal medial shaft.. possible rotation vs soft tissue for appearance of cyst. Joint Spaces: The hip joint spaces are well-maintained bilaterally, with no signs of narrowing or subchondral sclerosis suggestive of degenerative joint disease. Soft Tissues: The soft tissues around the hip joint appear normal. There are no signs of soft tissue swelling or calcifications. Alignment: The alignment of the hip joints is normal with no evidence of subluxation or deformity. Impression: No acute bony process left hip. Community HealthRadiology Study observation (narrative)[facility] HospitalPathology Request for Lab Corpon [id number] Request for Lab [facility] Physician GroupComment on above:Order Comment: GI SPECIMENResult Comment: See report. Scanned copy available in EMR. PERFORMED BY: [address] [place] [address] PATHOLOGIST RELOCATION SERVICES SPECIALIST LESLEY WHITMORE M.D.Performed By: #### PATH TO [facility] #### [place] [id number] USACT head/brain wo [facility] 68-50-5012PS head/brain wo [facility] [place] [address] [place] [address] CT Scan Report Signed Patient: Margy Oakes MR#: [id number] [birth year] : 1945 Acct:[id number] Age/Sex: 80 / F ADM Date: 07/01/25 Loc: ER Room: Type: [facility] ER Attending Dr: Copies to: Calvin Parekh PA-C [...] Correa M.D. 07/01/2025 2:55 PM Dictation Location: [place] [address] Transcribed By: [facility] 07/01/251454 Dictated By: Marco Correa MD 07/01/251452 Signed By: 07/01/25 1455NormCleveland Clinic Martin [facility] Hospital Physician GroupUrine Cultureon 06-16-2025 Bacteria identified Cx Nom (U)<9,000 colonies/ml mixed bacterial skin contaminants 2 Days PERFORMED BY: [place] [address] PATHOLOGIST RELOCATION SERVICES SPECIALIST LESLEY WHITMORE M.D.NormalThe Unc Health Wayne Physician GroupComment on above: Performed By: #### [facility] #### [place] [address] USAUrine cultureOrdered By: Natasha Vazquez on 06-16-2025 Bacteria identified Cx Nom (U)2 DaysWhite HospitalOffice Visiton 98-67-1831Omrufd-up [id number] Margy Oakes 1945 F Date Provider Department Center 06/10/2025 KIMMY WOODRUFF Myranda Warner Family History Problem Relation Age of Onset Cancer Mother Cancer Father Cancer Brother Family Status - Relation Status Age at Mother Father Brother Level of Service:[address] [place] OFFICE/OUTPATIENT ESTABLISHED MOD MDM 30 MIN Reason for Visit and Comments: 3 month follow up with labs [Other] Coronary Artery Disease [187] Hypertension [737167] Hyperlipidemia [182] [facility] [Other]NormalLouis Stokes Cleveland VA Medical CenterB-TYPE NATRIURETIC PEPTIDEon 73-30-6982Mqaijqxveay peptide B (Bld) [Mass/Vol]151 pg/mLHigh<=100ProMedica [facility] Hospital Of Long BeachComment on above: Performed By: #### CBCA, 1744-2, 1920-8, BMP, 53924-3 #### [facility] ([id number]) [address] [place] [address], [address] [place], [place] [address]DEJ WITH AUTO DIFFERENTIALon 91-80-2920ZRRLKDCLP ABSOLUTE COUNT (10*3/UL) BY AUTOMATED COUNT0.0 10*3/uLNormal0.0-0.2PMemorial Hospital Comment on above:Performed By: #### CBCA #### [facility] ([facility]) [address] [place] [address] [place] [address] VIRBASOPHILS RELATIVE PERCENT BY AUTOMATED COUNT0.3 %Normal [facility] OhioComment on above:Performed By: #### CBCA #### [facility] ([facility]) [address] [place] [address] VIRCELLAVISION DIFFERENTIAL TYPEAUTOMATED DIFFERENTIALNormal [facility] OhioComment on above:Performed By: #### CBCA #### [facility] ([facility]) [address] [place] [address]. [place] [address] VIREosinophils (Bld) [#/Vol]0.0 10*3/uLNormal0.0-0.4[facility] OhioComment on above:Performed By: #### CBCA #### [facility] ([address] [address] VIREOSINOPHILS RELATIVE PERCENT BY AUTOMATED COUNT0.0 %Normal [facility] OhioComment on above:Performed By: #### CBCA #### [facility] ([address] [place] [address] VIRErythrocyte distribution width (RBC) [Ratio]16.4 %High 11.5-15[facility] OhioComment on above:Performed By: #### CBCA #### [facility] ([address] [address] VIRHematocrit (Bld) [Volume fraction]30.6 %Dpt57-63PgmNkraaqKing's Daughters Medical Center OhioComment on above:Performed By: #### CBCA #### [facility] ([address] [address] VIRHemoglobin (Bld) [Mass/Vol]10.4 g/dLLow11.7-15.5PMemorial HospitalComment on above:Performed By: #### CBCA #### [facility] ([address] [address] VIRLYMPHOCYTES ABSOLUTE COUNT (10*3/UL) BY AUTOMATED COUNT1.1 10*3/uLNormal1.0-3.5PMemorial HospitalComment on above:Performed By: #### CBCA #### [facility] ([address] [address] VIRLYMPHOCYTES RELATIVE PERCENT BY AUTOMATED COUNT15.4 %Normal [facility] OhioComment on above:Performed By: #### CBCA #### [facility] ([address] [address] VIRMCH (RBC) [Entitic mass]34.8 etSkpx49-64TwsNpgesnKing's Daughters Medical Center OhioComment on above:Performed By: #### CBCA #### [facility] ([address] [place] [address] VIRMCHC (RBC) [Mass/Vol]34.0 g/wCXcfrmp76-47XphSnpqvmMission Regional Medical CenterComment on above:Performed By: #### CBCA #### [facility] ([address] [place] [address] VIRMCV (RBC) [Entitic vol]102 wTJdjo85-058OpdMhgoeiMission Regional Medical CenterComment on above:Performed By: #### CBCA #### [facility] ([address] [place] [address] VIRMONOCYTES ABSOLUTE COUNT (10*3/UL) BY AUTOMATED COUNT0.2 10*3/uLNormal0.0-0.9[facility] OhioComment on above:Performed By: #### CBCA #### [facility] ([address] [place] [address] VIRMONOCYTES RELATIVE PERCENT BY AUTOMATED COUNT3.4 %Normal [facility] OhioComment on above:Performed By: #### CBCA #### [facility] ([address] [place] [address] VIRNEUTROPHILS ABSOLUTE COUNT BY AUTOMATED COUNT5.6 10*3/uL Normal1.5-6.6[facility] OhioComment on above:Performed By: #### CBCA #### [facility] ([address] [place] [address] VIRNEUTROPHILS RELATIVE PERCENT BY AUTOMATED COUNT80.9 %Normal [facility] OhioComment on above:Performed By: #### CBCA #### [facility] ([address] [place] [address] VIRPlatelet mean volume (Bld) [Entitic vol]8.0 fLNormal7-12 [facility] OhioComment on above:Performed By: #### CBCA #### [facility] ([facility]) [address] [place], [place] [address] [address] VIRPlatelets (Bld) [#/Vol]322 10*3/oIOailkh781-442WruGjnksg Fremont HospitalComment on above:Performed By: #### CBCA #### [facility] ([facility]) [address] [place] [address] [place] [address] VIRRBC COUNT2.99 X10E12/LLow3.8-5.2PMemorial Hospital Comment on above:Performed By: #### CBCA #### [facility] ([facility]) [address] [place] [address]. [place] [address] VIRWBC (Bld) [#/Vol]6.9 10*3/uLNormal4-11ProMission Regional Medical CenterComment on above:Performed By: #### CBCA #### [facility] ([facility]) [address] [place], [place] [address]. [place] [address] VIRCOMPREHENSIVE METABOLIC PANELon 19-70-0671Bfwgjoh [Mass/Vol]4.1 g/dLNormal3.2-5.3PMemorial HospitalComment on above: Performed By: #### CMP #### [facility] ([facility]) [address] [place] [address] [place] [address] VIRALP [Catalytic activity/Vol]72 U/NYknxxw67-578QjwSwfpugMission Regional Medical CenterComment on above:Performed By: #### CMP #### [facility] ([facility]) [address] [place] [address] [place] [address] VIRALT [Catalytic activity/Vol]17 U/LNormal<=31PMemorial HospitalComment on above:Result Comment: R-Specimen hemolyzed, results increasedPerformed By: #### CMP #### [facility] ([place] [address] [place] [address] VIRAnion gap [Moles/Vol]8 mmol/LNormal5-15ProMission Regional Medical CenterComment on above:Performed By: #### CMP #### [facility] ([facility]) [facility] [address] [place] [address] VIRAST [Catalytic activity/Vol]34 U/LNormal<=41ProMission Regional Medical CenterComment on above:Result Comment: R-Specimen hemolyzed, results increasedPerformed By: #### CMP #### [facility] ([address] [place] [place] [address] VIRBilirubin [Mass/Vol]1.3 mg/dLHigh0.3-1.2PMemorial HospitalComment on above:Result Comment: R-Results questionable due to hemolysis Performed By: #### CMP #### [facility] ([address] [place] [address] VIRCalcium [Mass/Vol]8.9 mg/dLNormal8.5-10.5PMemorial HospitalComment on above:Performed By: #### CMP #### [facility] ([address] [place] [address] VIRChloride [Moles/Vol]95 mmol/TZso58-722VnbNcjiusMission Regional Medical CenterComment on above:Performed By: #### CMP #### [facility] ([address] [place] [address] VIRCO2 [Moles/Vol]24 mmol/PTfjcgk49-32XwhDptgkmMemorial HospitalComment on above:Performed By: #### CMP #### [facility] ([facility]) [address] [place], [place] [address] [place] [address] VIRCreatinine [Mass/Vol]1.74 mg/dLHigh0.40-1.00ProMission Regional Medical CenterComment on above:Result Comment: METHOD TRACEABLE TO IDMS STANDARDPerformed By: #### CMP #### [facility] ([address] [place] [address] VIRGFR/1.73 sq M.predicted among non-blacks MDRD (S/P/Bld) [Vol rate/Area]29 mL/min/{1.73_m2}Low>=60ProMission Regional Medical CenterComment on above:Result Comment: Reported eGFR is based on the CKD-EPI 2020 equation that does not use a race coefficient.Performed By: #### CMP #### [facility] ([address] [address] VIRGlucose [Mass/Vol]161 mg/fRZokq65-55DtvPzzaglMission Regional Medical CenterComment on above:Performed By: #### CMP #### [address] [address] VIRPotassium [Moles/Vol]4.6 mmol/LNormal3.5-5.0ProMission Regional Medical CenterComment on above:Result Comment: R-Specimen hemolyzed, results increasedPerformed By: #### CMP #### [facility] ([address] [address] VIRProtein [Mass/Vol]7.5 g/dLNormal6.0-8.0[facility] OhioComment on above:Result Comment: R-Specimen hemolyzed, results increased Performed By: #### CMP #### [facility] ([address] [address] VIRSodium [Moles/Vol]127 mmol/RLeq387-060EkhMnfhzwMission Regional Medical CenterComment on above:Performed By: #### CMP #### [facility] ([address] [address] VIRUrea nitrogen [Mass/Vol]27 mg/dLNormal5-27ProMission Regional Medical CenterComment on above:Performed By: #### CMP #### [facility] ([address] [place] [address] VIRD-DIMERon 05-29-2025D QOAOF000 ug/mLHigh1-255ProMission Regional Medical CenterComment on above:Result Comment: Results >255 ng/mL DDU: Results may be indicative of the presence of VTE. The use of the Wells score and further diagnostic tests should be considered. Elevated D-Dimer levels can be associated with DIC, neoplasm, , trauma and liver disease. Elevated levels of rheumatoidfactor may lead to an overestimation of the D-Dimer level. Performed By: #### DDMR #### [facility] ([address] [place] [address] VIRMAGNESIUMon 45-45-0096Itubtqaex [Mass/Vol]1.6 mg/dLLow 1.8-2.6ProMission Regional Medical CenterComment on above:Result Comment: R-Specimen hemolyzed, results increasedPerformed By: #### MG #### [facility] ([address] [place] [address] VIRTROP I, HIGH SENSITIVITY 1 HOURon 01-60-6496VPNQXHLA I, HIGH SENSITIVITY5 ng/LNormal<16ProMission Regional Medical CenterComment on above: Performed By: #### CBCA, 1744-2, 1920-06, BMP, 46954-2 #### [facility] ([id number]) [address], [address] [place], [place] [address]PUGTDGNR I, HIGH SENSITIVITY 0 HOURon 05-55-3012TNNZEROU I, HIGH SENSITIVITY5 ng/LNormal<16ProMission Regional Medical CenterComment on above:Performed By: #### CBCA, 1744-2, 0-8, BMP, 96235-4 #### [facility] ([id number]) [address], [address] [place], [place] [address]XJ CHEST 2 VWSon 32-45-5091AA CHEST 2 VWSXR CHEST 2 VWS XR CHEST 2 VWS [...] by Ramses Khan MD on 05/29/2025 1:41 AMNormalProRegency Hospital Cleveland Westca Community Hospital Of Long BeachCentriole Ab [Titer] in Serum by Immunofluorescenceon 04-16-2025 Centriole Ab IF (S) [Titer]TNP.White HospitalCentromere Ab [Titer] in Serum by Immunofluorescenceon 38-35-9398Nukkddmjlu Ab IF (S) [Titer] TNP.White HospitalEstimated glomerular filtration rate (GFR) non- Americanon 91-93-3215SHY/1.73 sq M.predicted among non-blacks MDRD (S/P/Bld) [Vol rate/Area]Estimated glomerular filtration rate (GFR) non- AmericanLow>=60 mL/min/1.73m 2FSuburban Community Hospital & Brentwood HospitalGFR/1.73 sq M.predicted among non-blacks MDRD (S/P/Bld) [Vol rate/Area]26 mL/min/{1.73_m2} Low>=60 mL/min/1.73m 2FSuburban Community Hospital & Brentwood HospitalLaboratory - Chemistry and Chemistry - challengeon 01-21-6068Vhvqwzr [Mass/Vol]3.1 g/dLLow3.4-5.0 White HospitalCalcium [Mass/Vol]9.4 mg/dL8.5-10.1FSuburban Community Hospital & Brentwood HospitalChloride [Moles/Vol]99 mmol/L49-373WawfvyxacWhite HospitalCO2 [Moles/Vol]26.2 mmol/L21.0-32.0White HospitalCreatinine [Mass/Vol]1.84 mg/dLHigh0.55-1.02White HospitalGFR/1.73 sq M.predicted MDRD (S/P/Bld) [Vol rate/Area]32 mL/min/{1.73_m2} Low>=60 mL/min/1.73m 2FSuburban Community Hospital & Brentwood HospitalGlucose [Mass/Vol]97 mg/iV66-971LmdwjpzuaWhite HospitalPotassium [Moles/Vol]4.8 mmol/L 3.5-5.1FTriHealth Bethesda North Hospitalodium [Moles/Vol]133 mmol/LQiq501-753 White HospitalUrea nitrogen [Mass/Vol]21.0 mg/dLHigh7.0-18.0 White HospitalUrea nitrogen/Creatinine [Mass ratio]11.4 mg/mg White HospitalBilirubin Ql (U)NegativeNEGSelect Medical Specialty Hospital - CantonGlucose (U) [Mass/Vol]NegativeNEGSelect Medical Specialty Hospital - CantonKetones Ql (U)NegativeNEGSelect Medical Specialty Hospital - CantonpH (U)6.0 [pH]5.0-9.0[facility] County Health Centerpecific gravity (U) [Rel density]<=1.724Ldozygjr8.005-1.025White HospitalUrobilinogen Qn (U)0.2 {Maegan'U}/dL0.2-1.0White HospitalLaboratory - Specimen informationon 20-80-9871Uicawjqujc (U)CLEARCLEARFSuburban Community Hospital & Brentwood HospitalColor (U)LT. YELLOWYELLOWWhite Hospital Laboratory - Urinalysison 54-08-2914Wyrhund casts LM Ql (Urine sed)RAREWhite HospitalLeukocyte esterase Test strip Ql (U)SMALLAbnormalNEGATIVE White HospitalMucus Ql (Urine sed)NONE SEENNONE SEENWhite HospitalNitrite Ql (U)NegativeNEGSelect Medical Specialty Hospital - CantonProtein (U) [Mass/Vol]9.4 mg/dL<=11.9[facility] Protein Ql (U)NegativeNEG/TRACEWhite HospitalMidbody Ab [Titer] in Serum by Immunofluorescenceon 19-94-4435Lxjqyox Ab IF (S) [Titer]TNP. White HospitalMitotic spindle apparatus Ab [Titer] in Serum or Plasma by Immunofluorescenceon 95-50-8999Mfsqpxj spindle apparatus Ab IF [Titer]TNP.White HospitalMyeloperoxidase Ab [Units/volume] in Serum by Immunoassayon 87-16-8885Pqfeaiqqvrvlfda Ab IA Qn (S)<0.2 units0.0-0.9 White HospitalNo Panel Informationon 96-90-4373Gyyo-Nuclear Antibody Comment 2Comment.White HospitalComment on above: Pattern Potential Disease Association Homogeneous Systemic Lupus Erythematosus, Drug Induced Systemic Lupus Erythematosus, Chronic Autoimmune hepatitis, Juvenile Idiopathic Arthritis Speckled Sjogren Syndrome, Systemic Lupus Erythematosus, Subacute Cutaneous Lupus, Lupus, Congenital Heart Block, Mixed Connective Tissue Disease, Scleroderma-diffuse, Scleroderma- Autoimmune Myositis Overlap Syndrome, Systemic Lupus Sppmtvfwamlos-Scautqquett-Edlmngxelc Myositis Overlap Syndrome, Systemic Autoimmune Rheumatic Disease, Undifferentiated Connective Tissue Disease Nucleolar Systemic Sclerosis, Scleroderma-Autoimmune Myositis Overlap Syndrome, Sjogren Syndrome, Raynaud phenomenon, Pulmonary Arterial Hypertension, Systemic Autoimmune Rheumatic Disease, Cancer Centromere Scleroderma-CREST, Limited Cutaneous SSc, Raynaud's Phenomenon, Primary Biliary Cholangit is Nuclear Dot Primary Biliary Cholangitis Nuclear Primary Biliary Cholangitis, AutoimmuneMembrane Hepatitis/Liver disease, Systemic Autoimmune Rheumatic Disease, Autoimmune Cytopenias, Linear Scleroderma, Antiphospholipid Syndrome Performed at: [facility] [id number] Director: Yaw Shelby PhD, Phone: [phone] p-ANCA<1:20 titerNeg:<1:20White HospitalComment on above:The atypical pANCA pattern has been observed in asignificant percentage of patients with ulcerativecolitis,primary sclerosing cholangitis and autoimmune hepatitis.Performed at: [facility] [id number] Director: Clint Stoner MD, Phone: [phone] at: [facility] [id number] Director: Yaw Shelby PhD, Phone: [phone] ANCA (p-ANCA) Antibody<1:20 titerNeg:<1:20[facility] Comment on above:The presence of positive fluorescence exhibiting P-ANCA orC- ANCA patterns alone is not specific forthe diagnosis ofWegener's Granulomatosis (WG) or microscopic polyangiitis.Decisions about treatmentshould not be based solely onANCA IFA results. The International ANCA Group Consensusrecommends foll ow up testing of positive sera with both MN-3 and MPO-ANCA enzyme immunoassays. As many as 5% serumsamples are positive only by EIA. Ref. AM J Clin Qrvqdh8319;111:507-513.Phosphorus Level4.0 mg/dL2.6-4.7FSuburban Community Hospital & Brentwood HospitalUrine BacteriaTRACE #/HPFAbnormalNONE [facility] CampusUrine Culture ReflexedYES-FRCommunity Regional Medical Center Urine Occult BloodNegativeNEGATIVEWhite HospitalUrine Other CastsSEEN #/LPFAbnormalNONE [facility] CampusUrine Other CrystalsNone Seen #/HPFNone [facility] SystemUrine Random Adashjprco88.09 mg/dL20.00-300.00White HospitalUrine RBC0-2 #/HPF0-2FSuburban Community Hospital & Brentwood HospitalUrine Squamous Epithelial CellsRARE #/LPFNONE/RAREWhite HospitalUrine Transitional Epithelial CellsRARE #/LPFAbnormalNONE [facility] CampusUrine WBC0-2 #/HPFAbnormalNONE [facility] West CampusNuclear dots nuclear Ab pattern [Titer] in Serum by Immunofluorescenceon 12-74-7183Zugxopf dots nuclear Ab pattern IF (S) [Titer][facility] HospitalNuclear membrane pores nuclear Ab pattern [Titer] in Serum by Immunofluorescenceon 04-16-2025 Nuclear membrane pores nuclear Ab pattern IF (S) [Titer][facility]Health Mansfield HospitalPCNA extractable nuclear Ab [Titer] in Serum by Immunofluorescence on 86-53-9899SAIX extractable nuclear Ab IF (S) [Titer][facility] Mansfield HospitalProteinase 3 Ab [Units/volume] in Serum by Immunoassayon 56-65-0917Eovbcwysoc 3 Ab IA Qn (S)<0.2 units0.0-0.9[facility] Centererum classic neutrophil cytoplasmic antibody titer by immunofluorescence on 46-08-1914Ysoykolshp cytoplasmic Ab.classic IF (S) [Titer]<1:20 titer Neg:<1:20[facility] Centererum homogeneous pattern antinuclear antibody (SATYA) titeron 36-00-7965Zxigambrup nuclear Ab pattern (S) [Titer][facility] Hospitalerum nuclear antibody titeron 04-16-2025 Nuclear Ab (S) [Titer]PositiveAbnormal.White HospitalComment on above:Negative <1:80 Borderline 1:80 Positive >1:80Serum nucleolar pattern antinuclear antibody (SATYA) titeron 18-29-8011Cnbgnyner nuclear Ab pattern (S) [Titer]TNP.[facility] Centererum or plasma anion gap determinationon 37-46-6946Ttosq gap [Moles/Vol]Serum or plasma anion gap determinationWhite HospitalAnion gap [Moles/Vol]12.6 mmol/L [facility] Centererum or plasma complement C3 measurement (mass/volume)on 56-59-6537Ihyhwjlvqq C3 [Mass/Vol]161 mg/fP31-387SkgmgwhcaFulton County Health Centererum or plasma complement C4 measurement (mass/volume)on 54-62-9129Ckrftrnuqs C4 [Mass/Vol]45 mg/fAOxfjzwhv03-07OnnhqzyefWhite HospitalComment on above:Performed at: [facility] [place] [id number] Director: Yaw Shelby PhD, Phone: [phone] Serum speckled pattern antinuclear antibody (SATYA) titeron 37-76-6122Zpbnhhjz nuclear Ab pattern (S) [Titer]1:320Abnormal.[facility] Comment on above:Dense Fine Speckled pattern is noted. This pattern suggeststhe presence of DFS70 antibody which hasa low prevalencein systemic autoimmune rheumatic diseases.ICAP nomenclature: AC-2,4,5,29Urine Cultureon 04-16-2025 Bacteria identified Cx Nom (U)<9,000 colonies/ml mixed bacterial skin contaminants 2 Days PERFORMED BY: [place] [address] PATHOLOGIST RELOCATION SERVICES SPECIALIST LESLEY WHITMORE M.D.NormalThe Unc Health Wayne Physician GroupComment on above: Performed By: #### CUU #### [place] [address] USAUrine cultureOrdered By: Shyam Crowell on 11-17-5067Ubpewbyp identified Cx Nom (U)2 DaysWhite HospitalUrine protein/creatinine ratioon 41-08-7433Tcxmeec/Creatinine (U) [Ratio]Urine protein/creatinine ratioWhite HospitalProtein/Creatinine (U) [Ratio]0.20White HospitalUrine Cultureon 15-45-0040Aqzthmmv identified Cx Nom (U)50,000 colonies/ml mixed bacterial skin contaminants 2 Days PERFORMED BY: [place] [address] PATHOLOGIST RELOCATION SERVICES SPECIALIST LESLEY WHITMORE M.D.[facility] Physician GroupComment on above: Performed By: #### CUU #### [facility] [address] [place] [address] USAUrine cultureOrdered By: Natasha Vazquez on 04-14-2025 Bacteria identified Cx Nom (U)Urine cultureWhite Hospital Bacteria identified Cx Nom (U)2 DaysWhite HospitalUrine Cultureon 38-42-4849Owiakhcv identified Cx Nom (U)Urine Culture Results 30,000 colonies/ml Mixed Bacterial Skin Contaminants 2 Days PERFORMED BY: [place] [address] PATHOLOGIST RELOCATION SERVICES SPECIALIST LIZA RUIZ M.D.[facility] Physician GroupComment on above: Performed By: #### CUU #### [facility] [address] [place], [place] [address] USAUrine cultureOrdered By: Stefani Quezada on 60-56-5061Whhtmfny identified Cx Nom (U)Urine cultureWhite HospitalBacteria identified Cx Nom (U)[facility]36on 54-78-531846Fucjjrzsg lab results from 03/03/2025: MD Megan Thomas MA I assume this blood test is after she started hydrochlorothiazide, her kidney function and potassium appear to be stable. Continue current management. Patient informed.[facility]36on Patient returned my call. She hasn't started hydrochlorothiazide yet. She said the pharmacy had trouble obtaining it, and then she and her were out of town for a bit. She will start it today and have BMP next week. Order faxed to [facility]36Regarding lab results from 02/03/2025: MD Megan Thomas MA Creatinine is little higher after starting hydrochlorothiazide. Check with the patient if her shortness of breath and blood pressure are better. Spoke with . He said Margy was currently driving somewhere but he will have her return my call.[facility] SystemPulmonary function teston 46-76-3092PbwDotftv Health SystemNo Panel Informationon 34-83-8507YceakbfLOLA Dickey 02/06/2025 1:22 PM L Inj/Asp: R [...] discussed. Consent was given by the patient. Community HealthFollow-Upon 32-00-5759Karkhr-[id number] Margy Oakes 1945 F Date Provider Department Center 01/21/2025 [address]-AZADCMKIMMY ROSADO Family History Problem Relation Age of Onset Cancer Mother Cancer Father Cancer Brother Family Status - Relation Status Age at Mother Father Brother Level of Service:41850 [place] OFFICE/OUTPATIENT ESTABLISHED MOD MDM 30 MIN Reason for Visit and Comments: Post-Cath [731][facility] SystemAFB CULTURE(CONCENTRATED)on 97-90-7479Avttisytlrlgp sp identified Org specific cx Nom (Unsp spec)SPECIMEN NOTES SPECIMEN 3 AFB SMEAR NO ACID FAST BACILLI (CONCENTRATED SMEAR) CULTURE RESULTS NO ACID FAST BACILLI ISOLATED IN 8 WEEKSNoBarnesville HospitalComment on above:Performed By: #### 543-9 #### [facility] ([id number]) [address] [facility] [place], [place] [address]Qezfnfjnqacfb sp identified Org specific cx Nom (Unsp spec) SPECIMEN NOTES SPECIMEN 1 AFB SMEAR NO ACID FAST BACILLI (CONCENTRATED SMEAR) CULTURE RESULTS NO ACID FAST BACILLI ISOLATED IN 8 WEEKSNormalProMedica Dawn HospitalComment on above:Performed By: #### 543-9 #### [facility] ([id number]) [address], [address] [place], [place] [address] CELL [address] AND DIFFon 38-78-3958TBMS FLUID COMMENT Interpretation--------NormalProMedica Dawn HospitalComment on above: Result Comment: Reference values for this fluid type are undefined, as fluid accumulation is considered abnormal.Performed By: #### BFCT #### [facility] ([id number]) [address] [facility], [address] [place], [place] [address]WTHJX CLARITYTURBIDNormalProMedica Dawn HospitalComment on above:Performed By: #### BFCT #### [facility] ([id number]) [address], [address] [place], [place] [address]KWERB COLORCOLORLESSNormalProMedica Dawn HospitalComment on above:Performed By: #### BFCT #### [facility] ([id number]) [address], [address] [place], [place] [address]MHQJA DPVQYAPMRW45 %NormalProMedica Dawn HospitalComment on above:Performed By: #### BFCT #### [facility] ([id number]) [address], [address] [place], [place] [address]NEKUW LYMPHOCYTE1 %NormalProMedica Dawn HospitalComment on above:Performed By: #### BFCT #### [facility] ([id number]) [address], [address] [place], [place] [address]ZJZMH KIQQDPVDIAR45 %NormalProMedica Dawn HospitalComment on above:Performed By: #### BFCT #### [facility] ([id number]) [address], [address] [place], [place] [address]VIUMQ RBC CT129 /uLNormalProMedica Newark HospitalComment on above:Performed By: #### BFCT #### [facility] ([id number]) [address], [address] [place], [place] [address]XEIKY SPECIMEN TYPEBRONCHIAL WASHINGNormalProMedica Newark HospitalComment on above:Result Comment: RIGHT LUNG, MIDDLE LOBEPerformed By: #### BFCT #### [facility] ([id number]) [address], [address] [place], [place] [address]NRZEUJDKHSL8 %NormalProMedica Newark HospitalComment on above: Performed By: #### BFCT #### [facility] ([id number]) [address], [address] [place], [place] [address]CHCNYGSUI CELL [id number] /uLNormalProMedica Newark HospitalComment on above:Performed By: #### BFCT #### [facility] ([id number]) [address], [address] [place], [place] [address]TSRD FLUID COMMENT Interpretation--------Normal ProMedica [facility] Memorial HospitalComment on above:Result Comment: Reference values for this fluid type are [...] are undefined, as fluid accumulation is considered abnormal.Performed By: #### BFCT #### [facility] ([id number]) [address], [address] [place], [place] [address]XNOKE CLARITYTURBIDNormalProMedica Newark HospitalComment on above:Performed By: #### BFCT #### [facility] ([id number]) [address], [address] [place], [place] [address]YYTVV COLORREDNormalProMedica Dawn HospitalComment on above: Performed By: #### BFCT #### [facility] ([id number]) [address] [facility], [address] [place], [place] [address]JNFZS EOSINOPHIL3 %NormalProMedica Dawn HospitalComment on above:Performed By: #### BFCT #### [facility] ([id number]) [address] [facility], [address] [place], [place] [address]NHJZN DLNZFOFWIX56 %NormalProMedica Dawn HospitalComment on above:Performed By: #### BFCT #### [facility] ([id number]) [address] [facility], [address] [place], [place] [address]ZNZHW AYYTFAEANKC43 %NormalProMedica Dawn HospitalComment on above:Performed By: #### BFCT #### [facility] ([id number]) [address] [facility], [address] [place], [place] [address]KPSQP RBC [id number] /uLNormalProMedica Dawn HospitalComment on above:Performed By: #### BFCT #### [facility] ([id number]) [address] [facility], [address] [place], [place] [address]HEGDH SPECIMEN TYPEBRONCHOALVEOLAR LAVAGENormalProMedica Dawn HospitalComment on above:Result Comment: RIGHT LUNG, MIDDLE LOBEPerformed By: #### BFCT #### [facility] ([id number]) [address], [address] [place], [place] [address]RKODCWFFLRF2 %NormalProMedica Dawn HospitalComment on above: Performed By: #### BFCT #### [facility] ([id number]) [address], [address] [place], [place] [address]QFQFUZNLY CELL CT4 /uLNormalProMedica Dawn HospitalComment on above:Performed By: #### BFCT #### [facility] ([id number], [address] [place], [place] [address]Uxkngocqoo 47-79-2814LqinkkgoRywxczSkeYvzgul [facility] Comment on above:Result Comment: [facility] [address] [place] [address] Cytology Consultation ADDENDUM [place] Patient Name:MARGY OAKES:1945 (Age: 79)Gender:FTaken:12/25/2024Reported:12/29/2024 16:11Physician(s):Isidra Simmons MD ([phone])Copy To: Rec. #:[id number]: #[id number] Final Cytologic Diagnosis 1. Right middle lobe, [...] progesterone receptors and HER2/sarahi overexpression are being performed,results of which will be reported in an addendum. 12/26/2024 Interpretation performed at [facility], [address] [place] [address], License number: [id number].Electronically Signed Out By Min Acuna MD Additional [...] and Drug Administration (FDA) cleared (test/vendor): Confirm/ Blacktail, Primary Antibody: SP1 Progesterone Receptor: FDA cleared (test/vendor): Confirm/ Blacktail, Primary Antibody: 1E2 HER2: FDA approved (test/vendor): Pathway/ Blacktail, Primary Antibody: 4B5 Detection System (ER, PgR and/or HER2): Blacktail ultraView [place] DAB Detection Kit (indirect biotin-free detection) Scoring [...] staining that is, faint/barely perceptible and in >10%of tumor cells Equivocal (score 2+) - Weak to moderate complete membrane staining in >10% of tumor cells or unusual staining patterns (including circumferential membrane staining that is intense but within <10% of tumor cells) Positive (Score 3+) - Circumferential membrane staining that is complete, intense, and in >10% of tumor cells References 1. Aydee CARDENAS, Diana ME, Violet M, et al. Estrogen and Progesterone receptor Testing in Breast Cancer; [place] Society of Clinical Oncology/College of [place] Pathologists Guideline Update. ArchPathol Lab Med. doi:10.5858/arpa.2242-7054-XQ. 2. Erwin SAUCEDA, Diana PEPE, Aydee KH, et al. Human Epidermal Growth Factor Receptor 2 Testing in Breast Cancer; [place] Society of Clinical Oncology/College of [place] Pathologist Clinical PracticeGuideline Focused Update. Arch Pathol Lab Med. doi: 10.5858/arpa.9331-8979-EB. Electronically Signed Out Min Acuna MD Addendum (PHS) Date Reported: 01/08/2025 Results of testing for HER2, Breast Tumor, FISH, Tissue dated 01/07/2025 are received from [facility], [address] [place] [address] and are as follows: Result Summary: Negative Interpretation: There is no evidence of HER2 (ERBB2) gene amplification in this tumor sample. According to current ASCO/CAP guidelines for HER2 testing in breast cancer, dual-probe in situ hybridization (UMM) results indicating a HER2/ (more content not included)...FUNGAL CULTUREon 53-23-3413Ncbpki identified Cx Nom (Unsp spec) SPECIMEN NOTES SPECIMEN 3 FUNGAL SMEAR NO FUNGAL ELEMENTS SEEN ON CONCENTRATED SMEAR CULTURE RESULTS NO FUNGUS ISOLATED AFTER 4 WEEKSNormalProRegency Hospital Cleveland Westca Newark HospitalComment on above: Performed By: #### 580-1 #### [facility] ([id number]) [address] [place], [place] [address]Twfvkr identified Cx Nom (Unsp spec)SPECIMEN NOTES SPECIMEN 1 FUNGAL SMEAR NO FUNGAL ELEMENTS SEEN ON CONCENTRATED SMEAR CULTURE RESULTS NO FUNGUS ISOLATED AFTER 4 WEEKSNormalProRegency Hospital Cleveland Westca Newark HospitalComment on above: Performed By: #### 580-1 #### [facility] ([id number]) [address] [place], [place] [address]WPIDS RESPIRATORY CULTUREon 94-64-5182Bzphzthy identified Respiratory culture Nom (Sput)SPECIMEN NOTES SPECIMEN 3 GRAM STAIN >25 WHITE BLOOD CELLS/LPF 0 to 1 SQUAMOUS EPITHELIAL CELLS/LPF 0 CILIATED EPITHELIAL CELLS/LPF NO ORGANISMS SEEN CULTURE RESULTS NO GROWTH 2 DAYSNoBarnesville HospitalComment on above:Performed By: #### 624-7 #### [facility] ([id number]) [address] [place] [address], [address] [place], [place] [address]Ufqhclez identified Respiratory culture Nom (Sput)SPECIMEN NOTES SPECIMEN 1 GRAM STAIN 0 to 1 WHITE BLOOD CELLS/LPF 0 SQUAMOUS EPITHELIAL CELLS/LPF 0 CILIATED EPITHELIAL CELLS/LPF NO ORGANISMS SEEN CULTURE RESULTS NO GROWTH 2 DAYSNoBarnesville HospitalComment on above:Performed By: #### 624-7 #### [facility] ([id number]) [address] [place] [address], [address] [place], [place] [address]Tsieornc Pathologyon 18-14-3467Dbpbtmlv PathologyNoalSt. Elizabeth HospitalComment on above:Result Comment: [employer] [facility] [address] [place] [address] Surgical Pathology Consultation ADDENDUM [place] Patient Name:MARGY OAKES:1945 (Age: 79)Gender:FTaken:12/25/2024Reported:12/30/2024Physician(s):Isidra Simmons MD ([phone])Copy To: Rec. #:[id number]: #[id number] Final Pathologic Diagnosis Right lung, middle lobe nodule, needle biopsy: CARCINOMA, consistent with METASTATIC MAMMARY CARCINOMA. Comment The tumor is glandular and papillary. Immunostains were performed, with adequate controls, and reveal strong positivity for GATA3 and CK7 with negative TTF1, Napsin-A and p40. The morphology and immunophenotype are those of a metastatic mammary carcinoma. ER, MN and Her2 will be performed and reported [...] and Drug Administration (FDA) cleared (test/vendor): Confirm/ Blacktail, Primary Antibody: SP1 Progesterone Receptor: FDA cleared (test/vendor): Confirm/ Blacktail, Primary Antibody: 1E2 HER2: FDA approved (test/vendor): Pathway/ Blacktail, Primary Antibody: 4B5 Detection System (ER, PgR and/or HER2): Blacktail ultraView [place] DAB Detection Kit (indirect biotin-free detection) Scoring [...] staining that is, faint/barely perceptible and in >10%of tumor cells Equivocal (score 2+) - Weak [...] and Progesterone receptor Testing in Breast Cancer; [place] Society of Clinical Oncology/College of [place] Pathologists Guideline Update. ArchPathol Lab Med. doi:10.5858/arpa.1407-0877-WU. 2. Erwin SAUCEDA, Diana CANTU, Aydee CARDENAS, et al. Human Epidermal Growth Factor Receptor 2 Testing in Breast Cancer; [place] Society of Clinical Oncology/College of [place] Pathologist Clinical PracticeGuideline Focused Update. Arch Pathol Lab Med. doi: 10.5858/arpa.1529-6022-VV. The tissue block is being sent for Her2 analysis by FISH. Electronically Signed Out Agustin Quinteros MD Addendum (PHS) Date Reported: 01/12/2025 Results of testing for HER2, Breast Tumor, FISH, Tissue dated 01/06/2025 are received from [facility], [address] [place] [address] and are as follows: Result Summary: Negative [...] 1. Erwin et al., J Clin Oncol, 36(20):7336-9736, 2018 Result nuc umm(H55Y0e7-8,BQQ4d6-2) HER2/D17Z1 ratio: 1.22 Average HER2 signals per cell: 3.6 Average D17Z1 signals per cell: 2.9 Reason for Referral: HER2 equivocal metastatic mammary carcinoma Source: Right lung Method: FISH using probes for HER2 (17q12) and a chromosome 17 centromere (D17Z1) control probe ([employer] Two technologists score signals in (more content not included)...APTTon 56-98-2342jODW Coag (PPP) [Time]34 [facility] City HospitalBASIC METABOLIC PANLon 86-35-7869Hwnsc gap [Moles/Vol]10 mmol/LNormal5-15ProMercy Health Tiffin Hospital HospitalComment on above:Performed By: #### SHERMAN 17990-5 #### [facility] ([id number]) [address] [place] [address] #### CBCA, BMP #### [facility] ([id number]) [address] [facility], [address] [place], [place] [address]Wzbjoxo [Mass/Vol]9.6 mg/dLNormal8.5-10.5PNationwide Children's HospitalComment on above:Performed By: #### SHERMAN 03864-8 #### [facility] ([id number]) [address] [place] [address] #### CBCA, BMP #### [facility] ([id number]) [address] [place], [place] [address]Ulteugbu [Moles/Vol]102 mmol/TQmvnia45-086FegFmxmpeMagruder Memorial HospitalComment on above:Performed By: #### SHERMAN, 19030-2 #### [facility] ([id number]) [address] [place] [address] #### CBCA, BMP #### [facility] ([id number]) [address], [address] [place], [place] [address]CW4 [Moles/Vol]28 mmol/LXczblf57-04FpxXnvubcNationwide Children's HospitalComment on above:Performed By: #### SHERMAN, 10808-3 #### [facility] ([id number]) [address] [place], [place] [address] #### CBCA, BMP #### [facility] ([id number]) [address], [address] [place], [place] [address]Vhflslwqwz [Mass/Vol]1.18 mg/dLHigh0.40-1.00ProMagruder Memorial HospitalComment on above:Result Comment: METHOD TRACEABLE TO IDMS STANDARDPerformed By: #### SHERMAN 90059-7 #### [facility] ([id number]) [address] [place], [place] [address] #### LEXIE BMP #### [facility] ([id number]) [address], [address] [place] [address]OND/1.73 sq M.predicted among non-blacks MDRD (S/P/Bld) [Vol rate/Area]47 mL/min/{1.73_m2}Low>59ProMagruder Memorial HospitalComment on above:Result Comment: Reported eGFR is based on the CKD-EPI 2020 equation that does not use a race coefficient.Performed By: #### SHERMAN 50612-4 #### [facility] ([id number]) [address] [place], [place] [address] #### KADEN OWEN #### [facility] ([id number]) [address], [address] [place] [address]Nhqtfmw [Mass/Vol]80 mg/pUGkcwnz03-72RpfQrcrtfMagruder Memorial HospitalComment on above:Performed By: #### SHERMAN 26603-9 #### [facility] ([id number]) [address] [place], [place] [address] #### LEXIE BMP #### [facility] ([id number]) [address] [place] [address], [address] [place] [address]Jgayqfvco [Moles/Vol]4.6 mmol/LNormal3.5-5.0ProMagruder Memorial HospitalComment on above:Performed By: #### SHERMAN 18082-6 #### [facility] ([id number]) [address] [place] [address] #### CBCA, BMP #### [facility] ([id number]) [address] [facility], [address] [place], [place] [address]Qphlqt [Moles/Vol]140 mmol/EBjsqvd381-829WqeJjogaoMagruder Memorial HospitalComment on above:Performed By: #### SHERMAN 40091-4 #### [facility] ([id number]) [address] [place] [address] #### CBCA, BMP #### [facility] ([id number]) [address] [place] [address], [address] [place], [place] [address]Syav nitrogen [Mass/Vol]16 mg/dLNormal5-27ProMagruder Memorial HospitalComment on above:Performed By: #### SHERMAN 42032-1 #### [facility] ([id number]) [address] [place] [address] #### CBCA, BMP #### [facility] ([id number]) [address] [place] [address], [address] [place] [address]Jlnpt Metabolic Panelon 47-16-4238Uyvhz gap [Moles/Vol]10 mmol/L 5 - 15 mmol/[facility] Health SystemCalcium [Mass/Vol]9.6 mg/dL8.5 - 10.5 mg/dL [facility] SystemedicNew Ulm Medical Center SystemChloride [Moles/Vol]102 mmol/L98 - 109 mmol/[facility] CenteroMeduab medical west Health SystemCO2 [Moles/Vol]28 mmol/L22 - 32 mmol/[facility] Creatinine [Mass/Vol]1.18 mg/dLHigh0.40 - 1.00 mg/dLDayton VA Medical Center Comment on above:METHOD TRACEABLE TO IDMS STANDARDeGFR (CKD-EPI)non-race vuzyiussx22Spc- [facility] Valley Medical CenterComment on above: Reported eGFR is based on the CKD-EPI 2020 equation that does not use a race coefficient. Glucose [Mass/Vol]80 mg/dL65 - 99 mg/dLOhio State Health System SystemInterpretation and review of laboratory resultsAbnormalProKing'S Daughters Medical Center Ohio SystemPotassium [Moles/Vol]4.6 mmol/L3.5 - 5.0 mmol/LProMedica Health SystemSodium [Moles/Vol] 140 mmol/L134 - 146 mmol/LProMedica Health SystemUrea nitrogen [Mass/Vol]16 mg/dL5 - 27 mg/dLProMedinv Health John D. Dingell Veterans Affairs Medical CenterProKing'S Daughters Medical Center Ohio SystemCBC AND AUTO DIFF on 48-17-4650YXIXXBHA BASOPHIL0.1 X10E9/LNormal0.0-0.2ProMedica Bucyrus Community HospitalComment on above:Performed By: #### SHERMAN, 25683-3 #### [facility] ([id number]) [address] [place] [address] #### CBCA, BMP #### [facility] ([id number]) [address] [facility], [address] [place], [place] [address]RIAVKGNO NEUTROPHIL2.6 X10E9/LNormal1.5-6.6ProMagruder Memorial HospitalComment on above:Performed By: #### SHERMAN, 34861-5 #### [facility] ([id number]) [address] [place] [address] #### CBCA, BMP #### [facility] ([id number]) [address] [facility], [address] [place], [place] [address]Mnzqblumb/100 WBC (Bld)1.1 %NormalProMagruder Memorial HospitalComment on above:Performed By: #### PINValeri, 04921-1 #### [facility] ([id number]) [address] [place] [address] #### CBCA, BMP #### [facility] ([id number]) [address], [address] [place], [place] [address]Wdiwdsysrke (Bld) [#/Vol]0.3 10*3/uLNormal0.0-0.4UK HealthcareComment on above:Performed By: #### SHERMAN, 24333-2 #### [facility] ([id number]) [address] [place] [address] #### CBCMike, BMP #### [facility] ([id number]) [address] [facility], [address] [place], [place] [address]Tftlmybibox/100 WBC (Bld)6.0 %NormalProMercy Health Tiffin Hospital HospitalComment on above:Performed By: #### SHERMAN, 40411-1 #### [facility] ([id number]) [address] [place] [address] #### CBCMike, BMP #### [facility] ([id number]) [address] [facility], [address] [place], [place] [address]Oqdlteuxxoz distribution width (RBC) [Ratio]13.5 %Normal 11.5-15.0ProMagruder Memorial HospitalComment on above:Performed By: #### SHERMAN, 89474-8 #### [facility] ([id number]) [address] [place] [address] #### CBCMike, BMP #### [facility] ([id number]) [address] [facility], [address] [place], [place] [address]Nfzkhsgtzj (Bld) [Volume fraction]33.9 %Xgb83-22RwfAbhihcMercy Health Tiffin Hospital HospitalComment on above:Performed By: #### SHERMAN, 95625-7 #### [facility] ([id number]) [address] [place], [place] [address] #### CBCA, BMP #### [facility] ([id number]) [address] [facility] [address] [place], [place] [address]Qmwbxyhnhy (Bld) [Mass/Vol]11.6 g/dLLow11.7-15.5ProMedica Bucyrus Community HospitalComment on above:Performed By: #### SHERMAN, 81920-7 #### [facility] ([id number]) [address] [place], [place] [address] #### CBCA, BMP #### [facility] ([id number]) [address] [facility], [address] [place], [place] [address]Rnvowygndwz (Bld) [#/Vol]1.7 10*3/uLNormal1.0-3.5[facility] HospitalComment on above:Performed By: #### SHERMAN 93172-4 #### [facility] ([id number]) [address] [place] [address] #### CBCA, BMP #### [facility] ([id number]) [address] [facility], [address] [place], [place] [address]Ubjjmkqxvst/100 WBC (Bld)33.4 %NormalProMercy Health Tiffin Hospital HospitalComment on above:Performed By: #### SHERMAN 31019-6 #### [facility] ([id number]) [address] [place] [address] #### CBCA, BMP #### [facility] ([id number]) [address] [facility], [address] [place], [place] [address]ILQ (RBC) [Entitic mass]32.6 qgHwhkcy77-99BswAqrkrzMagruder Memorial HospitalComment on above:Performed By: #### SHERMAN 12513-2 #### [facility] ([id number]) [address] [place], [place] [address] #### CBCA, BMP #### [facility] ([id number]) [address] [facility], [address] [place], [place] [address]ZZEF (RBC) [Mass/Vol]34.3 g/hPSvpjcq35-51DouGucuaoMagruder Memorial HospitalComment on above:Performed By: #### SHERMAN, 96471-6 #### [facility] ([id number]) [address] [place], [place] [address] #### CBCA, BMP #### [facility] ([id number]) [address] [facility], [address] [place], [place] [address]NBG (RBC) [Entitic vol]95 zWEsxfhc80-825FeaUldfsyMercy Health Tiffin Hospital HospitalComment on above:Performed By: #### SHERMAN 86713-9 #### [facility] ([id number]) [address] [place], [place] [address] #### CBCA, BMP #### [facility] ([id number]) [address] [facility], [address] [place], [place] [address]Syssvoemj (Bld) [#/Vol]0.4 10*3/uLNormal0-0.9ProMercy Health Tiffin Hospital HospitalComment on above:Performed By: #### SHERMAN 64405-3 #### [facility] ([id number]) [address] [place], [place] [address] #### CBCA, BMP #### [facility] ([id number]) [address] [facility], [address] [place], [place] [address]Evhfkgdqm/100 WBC (Bld)8.3 %NormalProMercy Health Tiffin Hospital HospitalComment on above:Performed By: #### SHERMAN, 02711-9 #### [facility] ([id number]) [address] [place], [place] [address] #### CBCA, BMP #### [facility] ([id number]) [address] [facility], [address] [place], [place] [address]Nmxloqokcnr/100 WBC (Bld)51.2 %NormalProMercy Health Tiffin Hospital HospitalComment on above:Performed By: #### PINValeri, 81068-5 #### [facility] ([id number]) [address] [place], [place] [address] #### CBCA, BMP #### [facility] ([id number]) [address] [facility], [address] [place], [place] [address]Bdctvnmj mean volume (Bld) [Entitic vol]7.6 fLNormal7-12 [facility] HospitalComment on above:Performed By: #### SHERMAN 79171-3 #### [facility] ([id number]) [address] [place] [address] #### LEXIE, BMP #### [facility] ([id number]) [address] [facility], [address] [place], [place] [address]Iedfuxjgk (Bld) [#/Vol]244 10*3/aANvvqog369-675HsdQhiggmMercy Health Tiffin Hospital HospitalComment on above:Performed By: #### SHERMAN 10317-3 #### [facility] ([id number]) [address] [place], [place] [address] #### LEXIE, BMP #### [facility] ([id number]) [address] [facility], [address] [place], [place] [address]KNG COUNT3.56 X10E12/LLow3.80-5.20ProMagruder Memorial HospitalComment on above:Performed By: #### SHERMAN 09028-4 #### [facility] ([id number]) [address] [place], [place] [address] #### LEXIE, BMP #### [facility] ([id number]) [address] [facility], [address] [place], [place] [address]IRR (Bld) [#/Vol]5.0 10*3/uLNormal4.0-11.0ProMagruder Memorial HospitalComment on above:Performed By: #### SHERMAN 49218-7 #### [facility] ([id number]) [address] [place] [address] #### CBCA, BMP #### [facility] ([id number]) [address] [facility], [address] [place], [place] [address]ASF auto differentialon 18-28-2263Lwfwpbnbt (Bld) [#/Vol]0.1 10*3/uLDayton VA Medical CenterBasophils/100 WBC (Bld)1.1 %[facility] CenterEosinophils (Bld) [#/Vol]0.3 10*3/uLDayton VA Medical CenterEosinophils/100 WBC (Bld)6 %[facility] CenterErythrocyte distribution width (RBC) [Ratio] 13.5 %11.5 - 15.0 %[facility] Medical CenterHematocrit (Bld) [Volume fraction]33.9 %Low35 - 47 %[facility] Medical CenterHemoglobin (Bld) [Mass/Vol]11.6 g/dLLow11.7 - 15.5 g/dLDayton VA Medical CenterInterpretation and review of laboratory resultsAbnormalDayton VA Medical CenterLymphocytes (Bld) [#/Vol]1.7 10*3/uL [facility] CenterLymphocytes/100 WBC (Bld)33.4 %[facility] Medical CenterMCH (RBC) [Entitic mass]32.6 pg27 - 34 pgPDayton Children's HospitalMCHC (RBC) [Mass/Vol]34.3 g/dL32 - 36 g/dLDayton VA Medical CenterMCV (RBC) [Entitic vol]95 fL80 - 100 fLPDayton Children's HospitalMonocytes (Bld) [#/Vol]0.4 10*3/uLDayton VA Medical CenterMonocytes/100 WBC (Bld)8.3 %[facility] Medical CenterNeutrophils (Bld) [#/Vol]2.6 10*3/uLDayton VA Medical CenterNeutrophils/100 WBC (Bld)51.2 % [facility] Medical CenterPlatelet mean volume (Bld) [Entitic vol]7.6 fL7 - 12 fL [facility] CenterPlatelets (Bld) [#/Vol]244 10*3/uLDayton [facility] Medical Center RBC (Bld) [#/Vol]3.56 10*6/uLLowDayton VA Medical CenterWBC corrected for nucl RBC Auto (Bld) [#/Vol]5PDayton Children's HospitalProMedica Health SystemCT ION CHEST WO CONTon 96-42-8277WB ION CHEST WO CONTCT ION CHEST WO CONT CT ION CHEST WO CONT CLINICAL INDICATION: Pulmonary nodules/lesions, multiple COMPARISON: CT chest 11/14/2024 TECHNIQUE: Noncontrast CT chest was performed. Coronal and sagittal reformatted images were generated and reviewed. Automated exposure control was utilized. Computer aided detection for pulmonary nodules was performed utilizing [employer] software. FINDINGS: Lower Neck & Thyroid: Unremarkable. [...] by Emerson Carlos MD on 12/12/2024 9:50 AMNormalProMagruder Memorial HospitalNo Panel Informationon 68-36-8878CllFdakhn Health SystemPROTIME AND INRon 68-22-7740RES Coag (PPP) [Relative time]1.0 {INR}Normal 0.8-1.1PNationwide Children's HospitalComment on above:Performed By: #### PINValeri, 99177-3 #### [facility] ([id number]) [address] [place] [address] #### CBCA, BMP #### [facility] ([id number]) [address] [facility], [address] [place], [place] [address]PG Coag (PPP) [Time]11.3 sNormal9.8-13.2PNationwide Children's HospitalComment on above:Performed By: #### SHERMAN, 15740-7 #### [facility] ([id number]) [address] [place] [address] #### CBCA, BMP #### [facility] ([id number]) [address] [facility], [address] [place], [place] [address]Fstjmap & INRon 97-79-6360KKS Coag (PPP) [Relative time]1 {INR} ProMedica Health SystemPT Coag (PPP) [Time]11.[address] Elizabeth Young[facility] Hospital SystemaPTT Coag (PPP) [Time]on 28-16-5727fQGT Coag (Bld) [Time]34 cUcvecc14-35PcuHmwmfkUK HealthcareComment on above:Performed By: #### PINR, 19371-0 #### [facility] ([id number]) [address] [place] [address] #### CBCA, BMP #### [facility] ([id number]) [address] [facility], [address] [place], [place] [address]UXht 75-57-1259PK Attestation signed by Kimmy Rosado MD at 12/09/2024 9:23 AM I personally saw and examined the patient on the same date of service as resident/fellow Dr howard. I discussed the findings and therapeutic plan with the resident/fellow Dr Howard. I agree with the documentation, except for any edits/updates below. Teaching Physician's Revisions: None Kimmy Rosado MD, [facility] H&P reviewed. The patient was examined and there are no changes to the H&P. NormalUnMercy Health Fairfield HospitalNURSNOTEon 48-27-9525NLBVQDMCML educated pt on d/c instructions. This included: site care, limited physical [...] wheeled off of unit with all of belongings.NormalUnMercy Health Fairfield HospitalALT No additional P-5'-P [Catalytic activity/Vol]on 13-19-8212CFQ [Catalytic activity/Vol]15 U/LNormal0-31PMemorial HospitalComment on above:Performed By: #### LEXIE, 1744-2, 1920-06, BMP, 18853-6 #### [facility] ([id number]) [address], [address] [place] [address]FIRni 13-30-9196FIQ [Catalytic activity/Vol]18 U/LNormal0-41 ProMSanta Ana Hospital Medical CenterComment on above:Performed By: #### LEXIE, 1744-2, 1920-06, BMP, 64409-8 #### [facility] ([id number]) [address], [address] [place] [address]HXWBN METABOLIC PANLon 23-42-7372Xfqje gap [Moles/Vol]7 mmol/L Normal5-15[facility] OhioComment on above:Performed By: #### LEXIE, 1743-2, 1920-06, BMP, 83872-5 #### [facility] ([id number]) [address], [address] [place] [address]Wvfngmk [Mass/Vol]9.7 mg/dLNormal8.5-10.5PMemorial HospitalComment on above:Performed By: #### LEXIE, 1743-2, 1920-06, BMP, 32651-5 #### [facility] ([id number]) [address], [address] [place] [address]Aivxrbby [Moles/Vol]102 mmol/JDvfeug20-547GreFcnvnpKing's Daughters Medical Center OhioComment on above:Performed By: #### LEXIE, 1744-2, 1920-06, BMP, 23111-7 #### [facility] ([id number]) [address], [address] [place] [address]JG0 [Moles/Vol]32 mmol/WIctqef28-28AikRuwbcaMemorial Hospital Comment on above:Performed By: #### LEXIE, 1744-2, 1920-06, BMP, 13664-0 #### [facility] ([id number]) [address], [address] [place], [place] [address]Wxpyvxtdzk [Mass/Vol]1.31 mg/dLHigh0.40-1.00ProMission Regional Medical CenterComment on above:Result Comment: METHOD TRACEABLE TO IDMS STANDARD Performed By: #### LEXIE, 1743-2, 1920-06, BMP, 39882-3 #### [facility] ([id number]) [address], [address] [place], [place] [address]QNC/1.73 sq M.predicted among non-blacks MDRD (S/P/Bld) [Vol rate/Area]41 mL/min/{1.73_m2}Low>59ProMission Regional Medical CenterComment on above: Result Comment: Reported eGFR is based on the CKD-EPI 2020 equation that does not use a race coefficient.Performed By: #### LEXIE, 1743-12, 1920-06, KADEN, 51931-3 #### [facility] ([id number]) [address], [address] [place], [place] [address]Mgvehpf [Mass/Vol]98 mg/zMMlnnsr03-41UthRgryarKing's Daughters Medical Center Ohio Comment on above:Performed By: #### LEXIE, 1743-12, 1920-06, BMP, 72199-4 #### [facility] ([id number]) [address], [address] [place], [place] [address]Qgbzdrczv [Moles/Vol]5.3 mmol/LHigh3.5-5.0ProMission Regional Medical CenterComment on above:Performed By: #### LEXIE, 1743-2, 1920-06, BMP, 74034-7 #### [facility] ([id number]) [address], [address] [place], [place] [address]Vmfclu [Moles/Vol]141 mmol/LYnbsle372-648XgpMbhdcj Fremont HospitalComment on above:Performed By: #### LEXIE, 1743-2, 1920-06, BMP, 77684-8 #### [facility] ([id number]) [address], [address] [place], [place] [address]Ljbu nitrogen [Mass/Vol]19 mg/dLNormal5-27ProMission Regional Medical CenterComment on above:Performed By: #### LEXIE, 4-2, 1920-06, BMP, 36677-5 #### [facility] ([id number]) [address], [address] [place], [place] [address]VGB AND AUTO DIFFon 00-64-6442LLPNZABB BASOPHIL0.0 X10E9/LNormal 0.0-0.2PMemorial HospitalComment on above:Performed By: #### LEXIE, 1743- 2, 1920-06, BMP, 53758-1 #### [facility] ([id number]) [address], [address] [place], [place] [address]UHFDPWEA NEUTROPHIL2.1 X10E9/LNormal1.5-6.6ProMission Regional Medical CenterComment on above:Performed By: #### LEXIE, 1743-2, 1920-06, BMP, 55713-7 #### [facility] ([id number]) [address], [address] [place], [place] [address]Smyaokmzu/100 WBC (Bld)0.5 %NormalProMission Regional Medical Center Comment on above:Performed By: #### LEXIE, 1743-2, 1920-06, BMP, 49399-6 #### [facility] ([id number]) [address], [address] [place], [place] [address]Fjnxzlxiqoh (Bld) [#/Vol]0.3 10*3/uLNormal0.0-0.4King[facility] Center OhioComment on above:Performed By: #### LEXIE, 4-2, 1920-06, BMP, 47379-9 #### [facility] ([id number]) [address], [address] [place], [place] [address]Tsmydrubbga/100 WBC (Bld)5.6 %NormalProMission Regional Medical Center Comment on above:Performed By: #### LEXIE, 1743-, 1920-06, BMP, 24146-0 #### [facility] ([id number]) [address], [address] [place], [place] [address]Iiqthawpdwn distribution width (RBC) [Ratio]13.5 %Normal 11.5-15.0King[facility] Center OhioComment on above:Performed By: #### LEXIE, 1743-, 1920-06, BMP, 83781-3 #### [facility] ([id number]) [address], [facility] [address] [place], [place] [address]Aemezbzsqh (Bld) [Volume fraction]34.0 %Yga05-42GpbXwidmzMission Regional Medical CenterComment on above:Performed By: #### LEXIE, 1743-12, 1920-06, BMP, 51590-8 #### [facility] ([id number]) [address], [address] [place], [place] [address]Zrsmzmkqoz (Bld) [Mass/Vol]11.4 g/dLLow11.7-15.5PMemorial HospitalComment on above:Performed By: #### LEXIE, 1743-12, 1920-06, BMP, 65049-3 #### [facility] ([id number]) [address], [address] [place], [place] [address]Yygmpkgddal (Bld) [#/Vol]1.8 10*3/uLNormal1.0-3.5PMemorial HospitalComment on above:Performed By: #### CBCMike, 1743-2, 1920-06, BMP, 38579-6 #### [facility] ([id number]) [address], [address] [place], [place] [address]Gljiysbdrgc/100 WBC (Bld)38.8 %NormalProRegency Hospital Cleveland Westca [facility] Comment on above:Performed By: #### CBCMike, 4-2, 1920-06, BMP, 31426-4 #### [facility] ([id number]) [address], [address] [place], [place] [address]TJE (RBC) [Entitic mass]31.9 xkNzdbwp91-40HasDwmskfMission Regional Medical CenterComment on above:Performed By: #### CBCMike, 4-2, 1920-06, BMP, 76493-0 #### [facility] ([id number]) [address], [address] [place], [place] [address]PMNW (RBC) [Mass/Vol]33.5 g/xGYvaqyc68-10MtgFwmsiwKing's Daughters Medical Center OhioComment on above:Performed By: #### CBCMike, 1743-2, 1920-06, BMP, 01927-9 #### [facility] ([id number]) [address], [address] [place], [place] [address]QIN (RBC) [Entitic vol]95 rVXbvzyn08-555JieSdbnbdKing's Daughters Medical Center OhioComment on above:Performed By: #### CBCMike, 1743-2, 1920-06, BMP, 92201-5 #### [facility] ([id number]) [address], [address] [place], [place] [address]Stkqgshab (Bld) [#/Vol]0.4 10*3/uLNormal0-0.9King[facility]aughters Medical Center OhioComment on above:Performed By: #### CBCMike, 1744-2, 1920-06, BMP, 71901-8 #### [facility] ([id number]) [address], [address] [place], [place] [address]Mbxcprutn/100 WBC (Bld)9.4 %[facility] Comment on above:Performed By: #### CBCA, 1744-2, 1920-06, BMP, 41965-3 #### [facility] ([id number]) [address], [address] [place], [place] [address]Jkqzknzrucb/100 WBC (Bld)45.7 %NormalKing's Daughters Medical Center [place] Comment on above:Performed By: #### CBCMike, 1744-2, 1920-06, BMP, 15309-0 #### [facility] ([id number]) [address], [address] [place] [address]Keppqhgq mean volume (Bld) [Entitic vol]7.8 fLNormal7-12 [facility] Hospitala Community Hospital Of Long BeachComment on above:Performed By: #### CBCMike, 1743-2, 1920-06, BMP, 70613-9 #### [facility] ([id number]) [address], [address] [place], [place] [address]Rhoyzaywm (Bld) [#/Vol]261 10*3/lYLvvoaf182-606RwxMsgnev Fremont HospitalComment on above:Performed By: #### CBCMike, 4-2, 1920-06, BMP, 07522-3 #### [facility] ([id number]) [address], [address] [place] [address]LHD COUNT3.57 X10E12/LLow3.80-5.20[facility] Comment on above:Performed By: #### CBCMike, 4-2, 1920-06, BMP, 68876-3 #### [facility] ([id number]) [address], [address] [place] [address]EXH (Bld) [#/Vol]4.5 10*3/uLNormal4.0-11.0King[facility] Medical Center OhioComment on above:Performed By: #### CBCA, 1744-2, 1920-06, BMP, 63042-6 #### [facility] ([id number]) [address], [address] [place] [address]Cccvq 1996 panelon 78-45-8442Tpnggqpydak [Mass/Vol]215 mg/dLHigh 150-200ProMission Regional Medical CenterComment on above:Performed By: Zuleyka OWEN, 4- 2, 1920-06, KADEN, 47461-4 #### [facility] ([id number]) [address], [address] [place], [place] [address]Nsysvxyjobn in HDL [Mass/Vol]57 mg/dLNormal>39ProMission Regional Medical CenterComment on above:Result Comment: HDL <40 mg/dL - High Risk HDL > or = 40mg/dL- Desirable HDL >60 mg/dL - Negative Risk Performed By: Zuleyka OWEN, 1743-2, 1920-06, KADEN, 58100-8 #### [facility] ([id number]) [address], [address] [place], [place] [address]Tmnvseqauxq in LDL [Mass/Vol]99 mg/dLNormal<130ProMission Regional Medical CenterComment on above:Result Comment: LDL <100 mg/dL - Desirable LDL >160 mg/dL - High Risk Performed By: #Virgilio OWEN, 4-2, 1920-06, BMP, 79368-6 #### [facility] ([id number]) [address], [address] [place], [place] [address]Sirfkytjqee in VLDL [Mass/Vol]59 mg/dLHigh0-30ProMission Regional Medical CenterComment on above:Performed By: Zuleyka OWEN, 1744-2, 1920-06, KADEN, 35632-0 #### [facility] ([id number]) [address], [address] [place], [place] [address]ONEQHWKENYE:HDL3.0Vyygbg1.0-5.0ProMission Regional Medical CenterComment on above:Performed By: #### LEXIE, 1744-2, 1920-06, [facility], 69312-1 #### [facility] ([id number]) [address] [facility] [place], [place] [address]Fxapfmwhfuzo [Mass/Vol]297 mg/aCEdje33-674ZtpCogmetMission Regional Medical CenterComment on above:Performed By: #### CHICHOA, 1744-2, 1920-06, [facility], 64184-4 #### [facility] ([id number]) [address] [facility], [address] [place], [place] [address]AZvl 80-27-1754FAFnsctkpg Office Cardiology Clinic Note Reason for cardiology [...] EKG today 11/10/2024 s (more content not included)...NormalUnMercy Health Fairfield HospitalOffice Visiton 38-29-4348Wlpawp-up [id number] Margy Oakes Kiran 1945 F Date Provider Department Center 11/10/2024 [id number]-DBTZEZKIMMY ROSADO CARD [facility] Family History Problem Relation Age of Onset Cancer Mother Cancer Father Cancer Brother Family Status - Relation Status Age at Mother Father Brother Level of Service:16937 [place] OFFICE/OUTPATIENT [facility] 60 MINUTES Reason for Visit and Comments: Hypertension [180590] Chest Pain [988786] - Sometimes gets chest pain at rest. Hyperlipidemia [182] Coronary Artery Disease [187] - Does not take daily aspirin. She does ride her stationary bike about 10 miles every day. Shortness of Breath [297414] - Gets very SOB with exertion and has to stop and take a rest at times. Palpitations [273890] - A little bit Dizziness [856033]NormalUnMercy Health Fairfield HospitalNo Panel Information on 55-17-4184Pkvgj Crispin Rios NP 08/28/2024 11:52 AM L Inj/Asp: R knee on 08/27/2024 12:21 PM Indications: pain Details: 21 G needle, anterolateral approach Medications: 40 mg methylPREDNISolone acetate 40 MG/ML Outcome: tolerated well, no immediate complications Site cleaned with isopropyl alcohol Procedure, treatment alternatives, risks and benefits explained, specific risks discussed. Consent was given by the patient. [facility] Knee - right 1 or 2 Viewson 97-40-5939Pllvwqk Result: 08/27/2024: Standing AP and LAT of the right knee demonstrates lateral joint space narrowing with valgus alignment. There is sclerosis noted to medial and lateral tibial plateau. Impression: Left knee osteoarthritis with valgus alignment. Lavinia Rios OTA-[facility] CityRadiology Study observation (narrative)[facility] Knee - right 1 or 2 ViewsOrdered By: Jr. Jeffries on 20-63-4272GMCIKindred Hospital Work Phone: XR ANKLE ABHISHEK MIN 3 VIEWSon 93-87-6527BO ANKLE ABHISHEK MIN 3 VIEWSEXAMINATION: XR ANKLE ABHISHEK MIN 3 VIEWS, XR [...] Electronically authenticated by: RAMSES GONGORA Date: 2022-02-01 11:16[facility] CenterCT ANKLE RT WO CONon 13-64-3340ZV ANKLE RT WO CONEXAMINATION: CT ANKLE RT WO CON HISTORY: Idiopathic osteoarthritis , [...] Electronically authenticated by: NORBERTO IVAN Date: 2021-12-19 11:38[facility] Medical CenterXR ANKLE ABHISHEK MIN 3 VIEWSon 87-84-0728YE ANKLE ABHISHEK MIN 3 VIEWS EXAMINATION: XR [...] Electronically authenticated by: NORBERTO IVAN Date: 2021-11-02 16:25[facility] Medical CenterCardiovascular Lab Reporton 62-30-4792Btrwevengpwlpp Lab Report [facility]: [id number] Physician: Pepe Barraza of [facility] Medicine Service Date: 05/29/2019 Division of Birthdate: 1945 Cardiology Room #: [facility] Cardiovascular Services [place] [address] Cardiovascular Laboratory Report INDICATION: The patient is [...] signed informed consent. She was brought to film laboratory technician in a fasting state. The right groin area was prepped and draped in usual fashion. Using micropuncture technique, the right common femoral artery was accessed. The inner cannula was advanced. Limited femoral angiography was performed followed by upsizing to a 6-Cameroonian x 11 cm sheath. Access was obtained using the same technique in the right common femoral vein and a 6-Cameroonian x 11 cm sheath was placed. A 6-Cameroonian Pena catheter was used for right heart catheterization with measurement of pressures and calculation of cardiac output using the estimated Anila method. Pena catheter was removed. Bilateral selective coronary angiography was then performed using 6-Cameroonian JL4 and JR4 diagnostic catheters. Catheters were removed. Procedure was concluded. The right femoral arteriotomy was managed with a 6-Cameroonian Angio-Seal device with good hemostasis. The access [...] P/Pepe Chavez M.D. Date Trans: 05/29/2019 10:55 P/mmo DN_JN:[id number] cc: Lucia Esteban M.D. [id number] [facility] [id number] Valley Community HospitalOtheron 01-18-1999 CONVERTED ELECTRONIC SIGNATURENELIA VICKIE ZABALA SLIDE MAKER (Electronic signature on file) Final Signed Out: 01/18/1999 16:25 [facility] HospitalCONVERTED FINAL DIAGNOSISSPECIMEN ADEQUACY SATISFACTORY FOR CYTOLOGIC EVALUATION BUT LIMITED BY: NO ENDOCERVICAL COMPONENTS. GENERAL CATEGORIZATION WITHIN NORMAL LIMITS HORMONAL EVALUATION HORMONAL PATTERN COMPATIBLE WITH AGE AND HISTORY [facility] HospitalCONVERTED ORDERING PROVIDEROrdering Provider: SHEA REYES [facility] HospitalCONVERTED PAP DISCLAIMERThe Pap test serves as a screening tool for early detection of cervical cancer. The Pap test does not represent a final diagnostic test for cervical cancer. Furthermore, the Pap test was not designed to screen for other malignancies (endometrial, ovarian cancer, etc....). False negatives and false positives have occurred. If clinically indicated, further patient evaluation is recommended. [facility] Vital Signs Date TimeVital SignValuePerforming [id number] 09:29-0400Body ypoyri154.5 cmMattfallon DAVILA Work Phone: [phone] [id number] 09:29-0400Body mass index (BMI) [Ratio]32.92 kg/p6Bxdavknosbaldo DAVILA Work Phone: [phone] BransonDxxuhwousm08-31-8192 09:29-0400Body ohvlvx84.65 kgMattfallon DAVILA Work Phone: [facility] [id number] 14:35-0400Diastolic blood mm[Hg]Shyam Crowell MD Work Phone: [facility]09-08-2025 14:35-0400 Heart rate57 /minShyam Crowell MD Work Phone: [phone] [place], [place] 8473409-08-2025 14:35-0400 Respiratory rate16 /minShyam Crowell MD Work Phone: 1(919)64[address]09-08-2025 14:35-0400 SaO2% (BldA) [Mass fraction]96 %Shyam Crowell MD Work Phone: 1(822)78[address]09-08-2025 14:35-0400 Systolic blood bgtvmado840 mm[Hg]Shyam Crowell MD Work Phone: 1(434)[address] [place], [place] 7463309-08-2025 12:47-0400 Body brrihb885.48 cmAalex Crowell MD Work Phone: 1(376)[address] [place], [place] 9912909-08-2025 12:47-0400 Body octbgm54.19 kgShyam Crowell MD Work Phone: 1(332)[address]08-20-2025 13:16-0400 Body wqyfgm997.48 cmLucia Esteban MD Work Phone: 1(312)[address]08-20-2025 13:16-0400 Body ookzfhpqwev46.7 [degF]Lucia Esteban MD Work Phone: 1(943)218-[address] [place], [place] 1506508-20-2025 13:16-0400 Body ealnva98.2 kgLucia Esteban MD Work Phone: 1(201)446-[address] [place], [place] 1506508-20-2025 13:16-0400 Diastolic blood ahetkfdj36 mm[Hg]Lucia Esteban MD Work Phone: 1(582)047-[address] [place], [place] 1506508-20-2025 13:16-0400 Heart rate60 /minLucia Esteban MD Work Phone: 1(029)924-[address] [place], [place] 1506508-20-2025 13:16-0400 Respiratory rate18 /minLucia Esteban MD Work Phone: 1(505)211-[address] [place], [place] 1506508-20-2025 13:16-0400 SaO2% (BldA) [Mass fraction]94 %Lucia Esteban MD Work Phone: 1(539)35[address]08-20-2025 13:16-0400 Systolic blood jhjytpaq145 mm[Hg]Lucia Esteban MD Work Phone: 1(757)[address]08-20-2025 12:55-0400 Body cudtcr198.48 cmLucia Esteban MD Work Phone: 1(091)[address] [place], [place] 2731108-20-2025 12:55-0400 Body uvdsyc78.73 kgLucia Esteban MD Work Phone: 1(532)[address] [place], [place] 2731108-20-2025 12:55-0400 Diastolic blood rljnelab76 mm[Hg]Lucia Esteban MD Work Phone: 1(996)23385 [address]08-20-2025 12:55-0400 Heart rate66 /minLucia Esteban MD Work Phone: 1(277)[address] [place], [place] 2731108-20-2025 12:55-0400 Respiratory rate18 /minLucia Esteban MD Work Phone: 1(659)[address]08-20-2025 12:55-0400 SaO2% (BldA) [Mass fraction]97 %Lucia Esteban MD Work Phone: 1(937)[address]08-20-2025 12:55-0400 Systolic blood fvhemqme646 mm[Hg]Lucia Esteban MD Work Phone: 1(528)[address]07-24-2025 08:36-0400 Body soxhny441.48 cmLucia Esteban MD Work Phone: 1(002)[address]07-24-2025 08:36-0400 Body mass index (BMI) [Ratio]32.2 kg/y0WegyjdoLucia Esteban MD Work Phone: 1(376)[address]07-24-2025 08:36-0400 Body lmvrtzcrsym77 [degF]Lucia Esteban MD Work Phone: [facility]07-24-2025 08:36-0400 Body arqttv96 kgLucia Esteban MD Work Phone: 1(041)445-[address] [place], [place] 4613007-24-2025 08:36-0400 Diastolic blood hmprjwux94 mm[Hg]Lucia Esteban MD Work Phone: 1(283)610-[address] [place], [place] 4613007-24-2025 08:36-0400 Heart rate55 /minLucia Esteban MD Work Phone: 1(167)390-[address] [place], [place] 1506507-24-2025 08:36-0400 Respiratory rate18 /minLucia Esteban MD Work Phone: 1(321)469-[address] [place], [place] 1506507-24-2025 08:36-0400 Systolic blood jupjichb414 mm[Hg]Lucia Esteban MD Work Phone: 1(092)238-[address] [place], [place] 4613007-10-2025 14:25-0400 Body jstmit203.4 cmSmelissa Thapa DO Work Phone: [facility]07-10-2025 14:25-0400Body mass index (BMI) [Ratio]33.98 kg/y1FhhousMaría Thapa DO Work Phone: [facility]07-10-2025 14:25-0400Body kvpyxi18.93 kgMaría Thapa DO Work Phone: [facility] Event[employer] Syyqoo00-09-3211 14:25-0400Diastolic blood cgihqhle86 mm[Hg]María Thapa DO Work Phone: [facility] [employer] Yislby84-21-5819 14:25-0400Heart rate 60 /minSmelissa Thapa DO Work Phone: [facility]07-10-2025 14:25-6693LhH3% (BldA) [Mass fraction]96 %María Thapa DO Work Phone: [facility]07-10-2025 14:25-0400Systolic blood tkjayaei648 mm[Hg]María Thapa DO Work Phone: [facility]06-05-2025 14:58-0400Body .48 cmStefani Quezada MD Work Phone: [phone])[address]06-05-2025 14:58-0400 Body mass index (BMI) [Ratio]31.8 kg/a2TfsjdxStefani Quezada MD Work Phone: 1(216)[address]06-05-2025 14:58-0400 Body akadwjssgkq98.9 [degF]Stefani Quezada MD Work Phone: 1(216)[address]06-05-2025 14:58-0400 Body opjuft64.98 kgStefani Quezada MD Work Phone: 1(216)[address]06-05-2025 14:58-0400 Diastolic blood guuzmvsj14 mm[Hg]Stefani Quezada MD Work Phone: 1(216)[address]06-05-2025 14:58-0400 Heart rate56 /Dany Quezada MD Work Phone: 1(216)[address]06-05-2025 14:58-0400 Respiratory rate18 /Dany Quezada MD Work Phone: 1(216)735[address]06-05-2025 14:58-0400 SaO2% (BldA) [Mass fraction]96 %Stefani Quezada MD Work Phone: 1(216)[address]06-05-2025 14:58-0400 Systolic blood xnqojuet371 mm[Hg]Stefani Quezada MD Work Phone: 1(216)[address]04-10-2025 10:51-0400 Body yiqzdk843.4 cmSmelissa Thapa DO Work Phone: [facility]04-10-2025 10:51-0400Body mass index (BMI) [Ratio]34.98 kg/c2AtpqgsMaría Thapa DO Work Phone: [facility]04-10-2025 10:51-0400Body .24 kgMaría Thapa DO Work Phone: [facility]04-10-2025 10:51-0400Diastolic blood mm[Hg]María Thapa DO Work Phone: [facility]04-10-2025 10:51-0400Heart rate 60 /minSmelissa Thapa DO Work Phone: [facility]04-10-2025 10:51-9944XaR9% (BldA) [Mass fraction]98 %María Thapa DO Work Phone: [facility]04-10-2025 10:51-0400Systolic blood wujzfeay012 mm[Hg]María Thapa DO Work Phone: [facility]02-10-2025 09:09-0500Body mhunkl959.[address]02-10-2025 09:09-0500Body mass index (BMI) [Ratio]32.92 kg/h1Aazpw09 [address]02-10-2025 09:09-0500Body lzkzzi63.[address]01-30-2025 12:08-0500Body height 157.5 cmSmelissa Thapa DO Work Phone: [facility]01-30-2025 12:08-0500Body mass index (BMI) [Ratio]33 kg/i7RaslnmMaría Thapa DO Work Phone: [facility]01-30-2025 12:08-0500Body .83 kgMaría Thapa DO Work Phone: [facility]01-30-2025 12:08-0500Diastolic blood kgufjkgq79 mm[Hg]María Thapa DO Work Phone: [facility]01-30-2025 12:08-0500Heart rate 53 /minSmelissa Thapa DO Work Phone: [facility]01-30-2025 12:08-5895MpK2% (BldA) [Mass fraction]99 %María Thapa DO Work Phone: [facility]01-30-2025 12:08-0500Systolic blood liityxds534 mm[Hg]María Thapa DO Work Phone: [facility]03-01-2024 09:17-0500Body .5 cmIgnacio Augustine MD Work Phone: [facility]03-01-2024 09:17-0500Body mass index (BMI) [Ratio]32.19 kg/i9WtpassrIgnacio Augustine MD Work Phone: [facility]03-01-2024 09:17-0500Body onakfz63.83 kgIgnacio Augustine MD Work Phone: [facility] Encounters Encounter DateEncounter TypeCare ProviderFacilityStart: 09-23-2025 End: 80-75-7527Nveiqb Casey DAVILA Work Phone: [facility] [place] [facility]Start: 09-23-2025 End: 13-09-2142Whapkolydia DAVILA Work Phone: [facility] [place] [facility]opa[facility]icsStart: 09-23-2025 End: 71-22-6586Ounnro outpatient visit 25 minutesMattfallon DAVILA Work Phone: [facility] [place] OrthopaedicsComment on above:Left hip pain (Primary Dx); Arthritis of right knee; Chronic pain of right knee; Trochanteric bursitis of left hipStart: 09-23-2025 End: 13-09-1723luvmtgzwfsQWTDNZL J MEYERNot AvailableStart: 25-90-7323vlmalhwxjw [facility] HospitalStart: 09-02-2025 End: 11-17-9905Wwoyri Casey DAVILA Work Phone: [facility] [place] [facility]opaedicsStart: 09-02-2025 End: 97-83-8537Btfdyn flowsheetBrannon DAVILA Work Phone: [facility] OrthopaedicsStart: 09-02-2025 End: 84-34-8161qqixjbqzmoINQEUUI J MEYERNot AvailableStart: 09-02-2025 End: 32-40-0676Nkfvxd outpatient visit 15 minutesMaosbaldo DAVILA Work Phone: [facility] OrthopaedicsComment on above:Left hip pain (Primary Dx); Trochanteric bursitis of left hipStart: 54-60-8515fppyywdultKPWZNJ [address] Hospitaltart: 07-20-2025 End: 36-19-8465camczcptoxQvmeujcrw L LyFacility:[facility] Centertart: 01-74-2368Mcs-patient / Non-visitCatherine L Ly DO-[facility] Work Phone: Start: 07-01-2025 End: 75-17-0234Wwnstnsyg department patient visitHealina Esteban MD Work Phone: [phone]-Slcpyxfcm Room Work Phone: Start: 07-01-2025 End: 49-52-1789Rnnpyepiv to same day surgery centerCatherine L Ly DO-[facility] Work Phone: Start: 07-01-2025 End: 69-14-1422jhbpqmlbcgPenzsot A Haynes MD Work Phone: [facility] Work Phone: Start: 06-16-2025 End: 61-88-4964swbbfdxmwvAbylljnBobby Esteban MD Work Phone: [facility] Work Phone: Start: 06-16-2025 End: 39-83-1520Zttxaiec Sonia Vazquez MD-[facility] Start: 06-10-2025 End: 97-54-0112igxjzygxmcVWFWY [facility] Hospitaltart: 06-04-2025 End: 03-18-9389edtugoppdnUyisbjk A Haynes MD Work Phone: [facility] Work Phone: Start: 06-04-2025 End: 23-78-2107Zluyfxm encounter procedureShyam Crowell MD-[facility] Work Phone: Start: 05-28-2025 End: 63-46-2242Alwsukcvo department patient visitHEATHER A [facility] Hospitaltart: 05-24-2025 End: 75-32-1367Emyqvusiw department patient visitHEATHER A [facility] Hospitaltart: 05-21-2025 End: 49-39-4395Xybwco outpatient visit 25 minutesMaría Beck ElsJordan [facility] Work Phone: [facility] Pulmonary/Sleep MedicineComment on above:Pulmonary nodules/lesions, multiple (Primary Dx); Moderate persistent asthma without complicationStart: 05-21-2025 End: 39-70-2056laemdecgnaSEPJPG [facility] Ambulatory PPGStart: 04-23-2025 End: 69-59-1377Veccuj OnlyScanning Provider ExternalProMedica Physicians Pulmonary/Sleep MedicineStart: 04-16-2025 End: 02-41-5205eqoswwoptwNjehu katieLouis Stokes [facility] Work Phone: Start: 04-16-2025 End: 79-09-1190Cxtswfhp ReferredStefani Quezada MD Work Phone: [facility]ospStart: 04-16-2025 End: 78-96-1557lehiysfunvWdadnk Diab MD Work Phone: [facility] Work Phone: Start: 04-16-2025 End: 66-20-6124Fvvvmnl encounter Lon Quezada MD Work Phone: [facility] Work Phone: Start: 04-14-2025 End: 95-20-7349mafrlbkkwsUolhdkv [facility] Work Phone: Start: 04-14-2025 End: 33-56-0245Gqmizifw ReferredStefani Quezada MD Work Phone: [facility]ospStart: 03-30-2025 End: 12-20-2417Pyzxmt-up encounterMaosbaldo DAVILA Work Phone: [facility] ORTHOPAEDICSStart: 03-30-2025 End: 94-45-2994Jfvrpdznv department patient visitHEATHER A [facility]Start: 03-28-2025 End: 35-73-8355eszckpxmmbPsjism A DiabFacility:[facility] Start: 03-28-2025 End: 92-32-2349Cuscefdl ReferredStefani Quezada MD Work Phone: [facility] HospStart: 03-28-2025 End: 50-45-1248Lwisxtxaf Result EncounterMaosbaldo DAVILA Work Phone: [facility] External Department UnsolicitedStart: 03-28-2025 End: 14-01-1604Rxeolqlkj Result EncounterMaosbaldo DAVILA Work Phone: [facility] External Department UnsolicitedStart: 02-20-2025 End: 19-37-3541Lslxnm OnlyMaría Thaap DO Work Phone: [facility] Pulmonary/Sleep MedicineComment on above:Moderate persistent asthma without complication (Primary Dx)Start: 02-19-2025 End: 67-46-9915Hvssdp outpatient visit 25 minutesMaría Thapa DO Work Phone: [facility] Pulmonary/Sleep MedicineComment on above:Pulmonary nodules/lesions, multiple (Primary Dx); Dyspnea on exertion; Moderate persistent asthma without complicationStart: 02-19-2025 End: 79-18-5961ennqwjyoysYCHPAK M [facility] PPGStart: 02-12-2025 End: 94-97-4227Qxashducs encounterSeva [facility] Pulmonary/Sleep MedicineStart: 02-06-2025 End: 35-68-8717Wvhmul flowsKim DAVILA Work Phone: [facility] ORTHOPAEDICSStart: 02-06-2025 End: 14-56-8256Ctaypq flowsKim DAVILA Work Phone: [facility] ORTHOPAEDICSStart: 02-06-2025 End: 22-43-3567Fiehyv outpatient visit 15 minutesMaosbaldo DAVILA Work Phone: [facility] FB ORTHOPAEDICSComment on above:Acute pain of right knee (Primary Dx); Arthritis of right kneeStart: 02-06-2025 End: 43-20-4862cxzldfnlmeEOSLYOV J MEYERNot AvailableStart: 01-21-2025 End: 31-16-2224arvkxxqrirYZXJTCleveland Clinic Fairview Hospitaltart: 12-25-2024 End: 35-03-4499Yuuspcmbbv and management of inpatientTAMER S SAID AHMEDProMagruder Memorial Hospital HospitalStart: 12-22-2024 End: 60-01-2395Fkjzjlajcy and management of inpatientHEATHER A HAYNESTriHealth HospitalStart: 12-22-2024 End: 37-06-6207Tbjvrmesw to establishmentMetro Pat Phone Call Provider 3 [facility] ERtart: 12-16-2024 End: 70-94-8069Frmuhgtok encounterFranca Regalado RN Work Phone: [facility] Pulmonary/Sleep MedicineStart: 98-35-9016Nwntktkng for other preprocedural examinationSLakeHealth Beachwood Medical Centertart: 12-12-2024 End: 69-04-7196ucrwomjlazJAKEUQ M [facility] Start: 12-11-2024 End: 16-50-9382Ukbumgu encounter statusConstance [facility] Start: 12-11-2024 End: 30-54-2505AwakioYswcbh Kiran Elier DO Work Phone: [facility] Pulmonary/Sleep MedicineStart: 12-11-2024 End: 01-93-0717Irsefzsae encounterConstance [facility] Pulmonary/Sleep MedicineStart: 12-11-2024 End: 32-80-9212logxgjxxwvVZBVQLCitizens Baptist Ambulatory PPGStart: 12-11-2024 End: 37-04-4772Nrabem outpatient new 60 minutesMaría Beck Elier DO Work Phone: [facility] Pulmonary/Sleep MedicineComment on above:Pulmonary nodules/lesions, multiple (Primary Dx); Pulmonary noduleStart: 12-09-2024 End: 46-83-6619cnrrjzoxcjRLHDCTriHealthtart: 29-37-6440mtonbxpjbsPQEAUGLHCA [facility] Ambulatory PPGStart: 23-35-2346rplywahzxrXOVGQPUCritical access hospital Ambulatory PPGStart: 11-13-2024 End: 53-22-4448cjyodppedlSPDPTRiverside Methodist Hospitaltart: 11-13-2024 Encounter for other preprocedural examinationHEATHER [facility] Hospitaltart: 11-10-2024 End: 22-39-4621tnsvcddsmdZMNKATriHealthtart: 10-24-2024 End: 86-23-2033stbqkpouwzHTCQEMLMemorial Hospitaltart: 08-27-2024 End: 03-36-1808Hiqzae Lucas Rios NP Work Phone: [facility]THOPAEDICSStart: 08-27-2024 End: 57-05-0179Xcqmbelydia Rios NP Work Phone: [facility] ORTHOPAEDICSStart: 08-27-2024 End: 80-18-3631Ndllkv outpatient visit 25 minutesLavinia Rios NP Work Phone: [facility] FB ORTHOPAEDICSComment on above:Primary osteoarthritis of right knee (Primary Dx); Right knee pain, unspecified chronicityStart: 01-11-2024 End: 17-08-9703Zjuiwe outpatient visit 15 minutesMicnolvia Augustine MD Work Phone: [facility] NeuroSurgeryComment on above: Neuropathy (Primary Dx)Start: 75-55-9203Sldtlujgo encounterAntoinelynn Brown LPNPEsmer Physicians NeuroSurgeryComment on above:MRIStart: 05-31-2022 End: 79-73-3385omqoclykbvHT LUCIA A HAYNESFacility:E0Rkxox: 05-02-2022 End: 95-20-5895szygzjbkewHS BERNABE S KUMARFacility:M9Qcxdw: 04-18-2022 End: 88-49-6929filebmhxqaLN BERNABE S KUMARFacility:Y4Rzwvf: 04-04-2022 End: 25-61-2362stvesjymneILUJGTXJ CULLENFacility:R0Cqqfg: 03-28-2022 End: 25-81-5794xfdlkkouxeSA BERNABE S KUMARFacility:M6Jsnej: 03-07-2022 End: 87-34-3940ypsiuojooyTI BERNABE S KUMARFacility:D2Kihei: 02-28-2022 End: 14-22-1945mutfpdwtviSE BERNABE S KUMARFacility:J4Jjigy: 02-14-2022 End: 60-10-5923jnsfhyupbkGM LUCIA A HAYNESFacility:J5Jmalh: 02-01-2022 End: 97-90-8586nsvtxemgdcNW LUCIA A HAYNESFacility:T9Chnpv: 12-19-2021 End: 31-93-4773zrwpozsxueVW LUCIA A HAYNESFacility:Z3Pcczo: 11-02-2021 End: 77-20-1841wwoafbijqrDI LUCIA A HAYNESFacility:Z5Wkujp: 05-29-2019 End: 77-40-5130Bblvvtw encounter procedurePROVIDER UNKNOWNFacility:UTMCStart: 01-03-1999 End: 75-58-3739Xqmgnad encounter procedureConversion [facility] Start: 20-96-4589Iolfkyf OnlyConversion Santa [facility] Procedures DateProcedureProcedure DetailPerforming ClinicianStart: 22-42-9886Ghuvpnafoiwrhl aspir&/inj major jt/bursa w/o usBrannon DAVILA Work Phone: Start: 01-40-8737Pjmigbfbrktvlv aspir&/inj major jt/bursa w/o usMattfallon DAVILA Work Phone: Start: 74-97-0077Xmfpl hip unilateral with pelvis 2-3 viewsBrannon DAVILA Work Phone: Start: 24-86-4180WA of head without contrastLucia Esteban MD Work Phone: start: 19-51-8834Svhxd cultureLucia Esteban MD Work Phone: start: 84-90-1805Dzaut Refugio Esteban MD Work Phone: start: 96-86-4888Sbfif April Quezada MD Work Phone: Start: 44-75-9063MUWIF CULTURE - FRBrannon DAVILA Work Phone: Start: 03-39-4276Yhgyv April Quezada MD Work Phone: Start: 50-73-2618Nwwkca-up visitFollow-upSMELISSA Beck ELSTONStart: 88-08-1691LQRKKYPBU FUNCTION TESTScanning Provider ExternalStart: 76-50-0501Itqqgizxczplfn aspir&/inj major jt/bursa w/o usMattfallon DAVILA Work Phone: Start: 43-54-9073Byqhqqxuxueyfs aspir&/inj major jt/bursa w/o usMiriamcrispin Rios [employer] Work Phone: Start: 33-84-6301Nhzozkmosx examination knee 1/2 views Lavinia Rios [employer] Work Phone: Start: 96-23-3972IQWGMYXXL CYTOLOGY GYNConversion [place] Plan of Treatment DateCare ActivityDetailAuthorStart: 08-59-4105Gvgcsww ScreeningTobacco Screening [facility] SystemStart: 04-51-0898Hflymth ScreeningTobacco Screening [facility] SystemStart: 12-23-2025 End: 35-20-6168Aydrsha encounter ojfodajjz37/11/2026 10:30 AM EST Office Visit [facility] [place] [facility] [address] [place] [address] Brannon Carranza PA [address] [place] [address] [facility] OrthopaedicsStart: 59-98-2028Luzqfyi Screening Tobacco ScreeningUNC Health Rex Holly Springstart: 09-23-2025 End: 92-35-9635Cclgvuu encounter procedureNOMS [place] OrthopaedicsComment on above:Left hip pain (Primary Dx)Start: 60-35-3121NhcijqjpzFulton County Health Centertart: 00-94-9102KKXYK-19 Vaccine ( season)COVID-19 Vaccine ( season)[facility]Start: 70-50-4709Lksiuzqcj vaccinationOhio State Health System SystemStart: 27-02-9399UfzwictmgefoixpklzphqnvgxzLN EGD (Not Applicable) [facility] Centertart: 61-66-8250AhdyzpzxqFulton County Health Centertart: 76-71-0308Kgwvpobl identified in Urine by CultureUrine Culture [facility] Centertart: 85-06-7135Rduyz cultureFulton County Health Centertart: 05-21-2025 End: 33-23-2776Ifwsctl encounter /10/2025 2:30 PM EDT Office Visit [facility] [address] [place] [address] María Thapa, DO [address] [address] [facility] Pulmonary/Sleep MedicineStart: 43-39-8283Eargm Cleveland Clinictart: 25-34-3488Bmxmvlgu identified in Urine by CultureUrine Culture [facility] Centertart: 53-03-6396Pgqbjkxu identified in Urine by CultureUrine CultureFulton County Health Centertart: 24-60-4491Zgtti [facility] Clinictart: 02-19-2025 End: 67-06-6505Ejyeiav encounter jrwmwynrs82/10/2025 10:45 AM EDT Office Visit [facility] [address] [address] María Thapa, DO [address] [address] [facility] Pulmonary/Sleep MedicineStart: 02-06-2025 End: 42-46-9930Mkrbges encounter terrlscuf71/28/2025 11:30 AM EDT Office Visit [facility] [address] [place] [address] Brannon Carranza, PA [address] [address] Acute pain of right knee (Primary Dx)[facility] Comment on above:Acute pain of right knee (Primary Dx)Start: 01-06-2025 End: 96-23-2665Fqdnraasa to same day surgery oevyco8101/06/2025 1:00 PM EST - 01/06/2025 2:[address] [facility] End[facility] [address] [place] [id number] María Thapa, DO [address] [address] ION ROBOTIC BRONCOSCOPY [79030 (CPT )][facility] EndoscopyComment on above: ION ROBOTIC BRONCOSCOPY [71108 (CPT )]Start: 01-06-2025 End: 95-18-8344Ybgdvaf incl fluor gdnce dx w/cell washg spxTOLEDO ENDOSCOPY Start: 70-75-5275Wxudcoawtk hospital visit by aasyfzirx72/25/2025 1:00 PM EST Hospital Encounter [facility] Endoscopy [address] [place] [place] [place] [phone] María Thapa DO [address] [facility] [address] [place] [address] [facility] EndoscopyStart: 12-25-2024 End: 30-87-3444Kqgjcklhz to same day surgery pdfseq5612/25/2024 1:15 PM EST - 12/25/2024 3:00 PM EST Surgery [facility] Endoscopy [address] [place] [address] Isidra Saeed MD [address] [address] ION ROBOTIC BRONCOSCOPY [17306 (CPT )][facility] EndoscopyComment on above: ION ROBOTIC BRONCOSCOPY [63115 (CPT )]Start: 12-25-2024 End: 11-27-4914Ulniqph incl fluor gdnce dx w/cell washg spxTOLEDO ENDOSCOPY Start: 18-43-5034Gnsdanjwqu hospital visit by bmxvvlnpo64/13/2025 1:15 PM EST Hospital Encounter [facility] Endoscopy [address] [place] [place] [phone] Isidra Saeed MD [address] [facility], [address] [address] [facility] - EndoscopyStart: 12-22-2024 End: 55-80-2720Vefcftppc to xfwalybhiksxh94/10/2025 8:30 AM EST Support Visit [facility] On [facility] [address] [address]TayQyfrxh [facility] Start: 12-12-2024 End: 92-55-2238Pkolfny encounter wiybkeloc98/31/2025 9:30 AM EST Appointment [facility] - [facility] [address] [place] [address] María Thapa, DO [address] [address] [facility] CTStart: 12-11-2024 End: 66-39-2392FB Chest limited WO contrastCT Ion Chest without contrast Imaging STAT Pulmonary nodules/lesions, multiple Expected: 12/11/2024, Expires: 12/11/2025[facility] Work Phone: Comment on above:Expected: 12/11/2024, Expires: 12/11/2025Start: 42-10-4505Wlmxp BMI ScreeningAdult BMI ScreeningOhio State Health System SystemStart: 76-14-2143Imgiord ScreeningTobacco ScreeningProKing'S D[facility] [place] SystemStart: 02-69-1834WNFYJ-19 Vaccine ( season)COVID-19 Vaccine ( season)[facility] SystemStart: 04-34-9517Brvpusmjl vaccination Influenza Vaccine (#1)[facility]: 11-09-2023 End: 27-12-7816ID Lumbar spine WO contrastMR lumbar spine without contrast Imaging Routine Neuropathy Expected: 11/09/2023, Expires: 11/09/2024[facility] Work Phone: Comment on above:Expected: 11/09/2023, Expires: 11/09/2024Start: 83-10-0049LZWYJ-19 Vaccine ( season)COVID-19 Vaccine ( season)[facility]: 19-10-9652Mxabtdute vaccinationInfluenza VaccineUNC Health [facility] Springstart: 95-37-7104cnotglozvt AmbulatoryFacility:W0Isfjv: 16-58-1163Asezqrrnw vaccinationINFLUENZA (#1) [facility]: 83-83-5339Xdhfarisaiej Vaccine: 65+ Years (2 of 2 - PCV) Pneumococcal Vaccine: 65+ Years (2 of 2 - PCV)[facility] HealthcareStart: 07-19-2016 Administration of varicella zoster vaccineZoster (Shingles) Vaccine (2 of 3) [facility]: 62-78-7217DFUVAYR DIRECTIVE DISCUSSIONADVANCE DIRECTIVE DISCUSSIONCorey Hospitaltart: 52-05-1382FCSM DENSITYBONE DENSITY [facility]: 85-51-5348Gnlu Risk ScreeningFall Risk ScreeningUNC Health [facility] Springstart: 34-26-3166LJTMKUELG AGE 65 AND OVER WITH 5YR LOOKBACK (#1) PNEUMOVAX AGE 65 AND OVER WITH 5YR LOOKBACK (#1)[facility]: 10-95-6481NGLIVJCD VACCINE (1 of 2)SHINGRIX VACCINE (1 of 2)[facility] Start: 35-06-8492Nhspdmffyjdc screeningCOLORECTAL CANCER SCREENING,SEE MODIFIER [facility]: 47-80-5485QTJXNQGI SCREENDIABETES SCREENCommunity Memorial Hospital Start: 99-33-3165ARAGU SCREENLIPID SCREENCorey Hospitaltart: 01-18-1964 DTaP,Tdap and Td Vaccines (1 - Tdap)DTaP,Tdap and Td Vaccines (1 - Tdap) [facility]: 92-01-1680Wnqoz microalbumin profileDTAP,TDAP,TD (1 - Tdap)[facility] Hospital[facility]: 88-67-3955Brktx BMI Follow Up PlanAdult BMI Follow Up PlanUNC Health Rex Holly Springstart: 47-82-2590GKCRECWMA C SCREENING HEPATITIS C SCREENINGCorey Hospitaltart: 92-39-3744Tfuprhsdyd Screening Depression ScreeningUNC Health Rex Holly Springstart: 1945Medicare Annual Wellness VisitMedicare Annual Wellness VisitProKing'S Daughters Medical Center [facility] SystemComplement C3 [Mass/volume] in Serum or [facility] CenterComplement C4 [Mass/volume] in Serum or [facility] End: 49-98-7844Zjagxrdftf countEosinophil count Lab Routine Moderate persistent asthma without complication 1 Occurrences ymmnaava94/10/2025 until 02/19/2026 [facility] SystemComment on above:1 Occurrences starting 02/19/2025 until 02/19/2026Patient EducationFairfield [facility] Work Phone: Patient referralFairfield Medical Center Ctr Work Phone: Renal function 1999 panel - Serum or [facility] CenterRenal function 1999 panel - Serum or [facility] End: 41-64-7382Fkctuutzmvy allergy panelRespiratory allergy panel Lab Routine Moderate persistent asthma without complication 1 Occurrencesstarting 02/19/2025 until 02/19/2026[facility] Work Phone: Comment on above:1 Occurrences starting 02/19/2025 until 02/19/2026UR[facility] CULTURE - [facility] Lab Routine 03/28/2025 5:58 PM [facility] Work Phone: US Kidney - [facility] Immunizations Immunization DateImmunizationNotesCare HfifjbqyOczsmasv18-71-7410qijwqolii virus vaccine, unspecified formulationSeva Velazquez [facility] 83-25-1770iqkrufgyb virus vaccine, unspecified formulationAntoinette [facility]07-13-2016zoster vaccine, unspecified formulation [facility] Payers DatePayer CategoryPayerPolicy [id number]-rha [id number] Care Other (unspecified)[facility] [id number] Health Insurance [id number] 2009Medicare 1.2.84[id number] [id number] 2.0.1.428710.3.579.2.71049-83-3538Ctmivtv6857084 2.0.1.341342.3.579.2.62471-97-9010Zokzyty6427772 2.0.1.796340.3.579.2.62019-08-5707Gfonqra5467523 2.0.1.010431.3.579.2.08181-12-2259Lovymap9623187 2.840.1.199345.3.579.2.17156-55-9289Lsfutgg3120713 2.840.1.845754.3.579.2.61704-72-8130Uvzdtxj0952537 2.840.1.612685.3.579.2.27461-05-3724Ghtncac9443747 2.840.1.032968.3.579.2.90580-03-2035Znlprvh8289807 2.16840.1.695405.3.579.2.21668-89-0855Mmfbkbm8882815 2.16840.1.670750.3.579.2.92154-84-2746Kopjnnk9268894 2.16840.1.155858.3.579.2.98277-25-9392Uvlhlzt5009384 2.16840.1.554397.3.579.2.74450-66-5908Cmfspee2843858 2.0.1.393344.3.579.2.10870-13-3137Nkedodf628049963 2.0.1.087738.3.579.2.699426-22-2211Zecanxu245954900 2..1.653985.3.579.2.044491-81-9292Earrjym030301327 2.840.1.656051.3.579.2.407348-58-5609Omponqm347276996 2.0.1.625425.3.579.2.011414-86-3578Skeftsz887445855 2..1.691733.3.579.2.650035-07-1009Ozbitpd987073594 2.0.1.087704.3.579.2.763329-89-6776Inibxpn515119469 2.0.1.151433.3.579.2.030652-48-1136Owcrjvr070093963 2.840.1.499745.3.579.2.272721-02-1035Wmfwzxf422440136 2.840.1.496124.3.579.2.865045-53-6036Dsjbqvq176843882 2.0.1.514545.3.579.2.831373-45-7077Tlionoy613388705 2.0.1.104657.3.579.2.237006-92-0983Bpnvgqu074231781 2.0.1.862921.3.579.2.283905-73-8504Tsekwkd425882015 2..1.945124.3.579.2.810919-28-0720Wvejxbh774035736 2..1.059770.3.579.2.846285-38-2588Lzgxtwt232955920 2..1.777697.3.579.2.779234-29-9204Vsgjztw61406138 2..1.483330.3.579.2.997613-32-1379Mczcxoz09118391 2..1.667972.3.579.2.781491-29-0207Sodqoqy11887162 2..1.230547.3.579.2.191840-35-6401Afrfgwp17486538 2..1.513815.3.579.2.425770-56-2692Gvamiwp4398771 2..1.723298.3.579.2.1259MedicareMedicare [id number] 2..1.970366.3.579.2.613Pqoixuq69606053 2..1.610203.3.579.2.531 Elkrktl12412118 2..1.878492.3.579.2.018Afcqrlp11989520 2..1.143719.3.579.2.467Pltubls15375352 2.0.1.967586.3.579.2.531 Mcyiowl15909663 2.16.840.1.701761.3.579.2.864Dahpgil31927274 2..840.1.885281.3.579.2.531 Social History DateTypeDetailFacilityTobacco smoking status NHISUnknown if ever smokedLexington ClinicSex Assigned At BirthNot on fileCorey Hospitaltart: 04-16-2024 End: 73-61-6045Wklzjkm smoking status NHISNever smoked tobaccoOhio State Health System SystemStart: 09-19-2023 End: 16-71-9941Fbahakl use and exposureSmokeless tobacco non-userOhio State Health System SystemStart: 04-16-2024 End: 21-89-3193Kcoggegvu beverage intakeCurrent drinker of alcohol (finding) [facility] SystemStart: 04-16-2024 End: 58-63-7804Sshrgph of Social functionNOMS HealthcareStart: 04-16-2024 End: 09-60-5792Qxpydvd use panelNONC HealthcareStart: 45-03-4250Het assigned at birthFeEncompass Rehabilitation Hospital [facility] HealthcareStart: 68-65-7875Zmrhuk identityIdentifies as female gender (finding)[facility] SystemStart: 67-80-1900Linsgm orientation Heterosexual (finding)[facility] HealthcareStart: 66-37-0229Xyhhklmxsp depression screening siaiymsmzh9RcrXosdkd Health SystemStart: 06-17-2015 End: 21-92-3472YsuWgehej (finding)[facility] CenterTobacco smoking status NHISUnknown if ever smokedSelect Medical [facility] Work Phone: Medical Equipment Procedure CodeEquipment CodeEquipment Original TextEquipment IdentifierDates [facility] [place] Radpq 40g [facility] [id number] - Sn/A - [id number]: 56-96-9690Pfeb Fem D Kn Lt Lpsflx Gndr Rpl [id number] - Sn/A - [id number]: 43-54-1372Fsx Artc 3-4 C-D 10mm Kn Fx - Sn/A - [id number] +[id number]/$$[id number]/SN/A, [id number] FDAStart: 94-09-3764Haak Ptlr 32mm Nxgn Alply Rpl 661823 - Sn/A - [id number] +[id number]/$$[id number]/SN/A, [id number]_imp FDAStart: 62-17-5626Tjg Tib 30k14a5ne Nxgn Kn Cmnt Rpl [id number] + [id number] - Sn/A - [id number]: 01-15-2018 Goals DatePatient GoalDesired Activity/State Clinical Notes 02-14-2022 to 09-23-2025 Note Date & PfzyMsayJeiyizov19-98-4473 History of Present illness Narrative* LOLA Dickey - 09/23/2025 8:45 AM ESTAssociated Order(s): L Inj/Asp: R knee Post-Procedure Diagnose(s): Arthritis of right knee Images from the original note were not included. Orthopedic Office note: NAME: Margy Oakes : 1945 EST PT RECHECK LT HIP PAIN - S/P LT HIP BURSA CORTISONE INJ 09/02/25; GOOD RELIEF ~2WKS XRAY LT HIP EPIC 09/02/25 LT HIP BURSA CORTISONE INJ 09/02/25 C/O PAIN LATERAL HIP - PAIN COMES AND GOES- INCREASE PAIN AFTER PROLONG SITTING- CONTINUES TO RIDE STATIONARY BIKE- SOME TINGLING IN LEGS PT IS COMPLAINING OF RT KNEE PAIN WELL Physical Exam Hip Musculoskeletal Exam Gait Gait is normal. Antalgic: right Inspection Leg length disparity: no discrepancy Left Erythema: none Ecchymosis: none Edema: none Deformity: none Palpation Left Increased warmth: none Tenderness: present Greater trochanteric region pain: moderate Range of Motion Left Left hip range of motion is within functional limits. Active ROM: normal. Passive ROM: normal. Strength Left Left hip strength is normal. Extension: 5/5. Flexion: 5/5. Internal rotation: 5/5. External rotation: 5/5. Adduction: 5/5. Abduction: 5/5. Abduction is affected by pain. Neurovascular Right Pulses - PT: normal Posterior tibial: 2+ Left Left hip neurovascular exam is normal. Pulses - PT: normal Posterior tibial: 2+ General Constitutional: appears stated age Labored breathing: no Psychiatric: normal mood and affect Neurological: alert and oriented x3 Skin: intact Lymphadenopathy: none Knee Musculoskeletal Exam Gait Gait is normal. Antalgic: right Inspection Leg length disparity: no discrepancy Right Erythema: none Effusion: mild Edema: none Ecchymosis: none Deformity: moderate Alignment: valgus Palpation Right Right knee palpation is unremarkable. Increased warmth: none Masses: none Crepitus: patellofemoral and lateral Tenderness: present Lateral joint line: moderate Patella: mild Range of Motion Right Right knee range of motion is normal and full. Active extension: 5 Passive extension: 0 Active flexion: 115 Passive flexion: 120 Strength Right Right knee strength is normal. Extension: 5/5. Extension is affected by pain. Flexion: 5/5. Flexion is affected by pain. Instability Right Instability signs: none - stable Anterior drawer: normal Neurovascular Right Right knee neurovascular exam is normal. Pulses - PT: normal Posterior tibial: 2+ Capillary refill: warm and well-perfused Left Pulses - PT: normal Posterior tibial: 2+ Special Signs Right Right knee special signs are normal. Patellar apprehension: none General Constitutional: appears stated age Labored breathing: no Psychiatric: normal mood and affect Neurological: alert and oriented x3 Skin: intact Lymphadenopathy: none Orders Placed This Encounter Procedures L Inj/Asp This order was created via procedure documentation L Inj/Asp: R knee on 09/23/2025 9:10 AM Indications: pain Details: 22 G needle, anterolateral approach Medications: 40 mg methylPREDNISolone acetate 40 MG/ML; 1 mL bupivacaine PF 0.5 % Outcome: tolerated well, no immediate complications E UTILIZING ASEPTIC TECHNIQUE PT GIVEN INJECTION IN RIGHT KNEE, NEUROVASC INTACT S/P INJ, TOLERATEDWELL Procedure, treatment alternatives, risks and benefits explained, specific risks discussed. Consent was given by the patient. Patient was prepped and draped in the usual sterile fashion. Results ICD-10-CM 1. Left hip pain M25.552 2. Arthritis of right knee M17.11 3. Chronic pain of right knee M25.561 G89.29 4. Trochanteric bursitis of left hip M70.62 Assessment & Plan Left lateral hip pain Pain is noted directly over the hip bursa and some of the glute tendon. Temporary relief was achieved with a cortisone injection, but symptoms have returned. Discussed doing some piriformis stretchesas it may be more of a tendinitis or tendinosis type situation which will improve over time with str etching and therapy. She is already doing aquatic therapy and will mention this to her therapist. Treatment plan: Piriformis stretches were recommended to address the tendinitis or tendinosis. She will continue with aquatic therapy and discuss the new exercises with her therapist. Right knee pain There is known arthritis in the right knee with a valgus deformity. She has had injections in the past with relief. She has an upcoming bus trip to [place] and is requesting an injection today.The risks and benefits of the injection were discussed. She is trying to avoid oral medications dueto her medical history and comorbidities. She reports no recent injury to the right knee and declines the need for x-rays today, with previous x-rays reviewed. Treatment plan: An injection was administered today after discussing the risks and benefits. She will avoid oral medications due to her medical history and comorbidities. Follow-up: The patient will follow up in 3 months for reevaluation. PROCEDURE Procedure Performed Cortisone injection to the left lateral hip Questions answered in laymen terms at the bedside. The diagnosis, home exercise plan and any ongoing restrictions/ recommendations reviewed. If unable to be reached in office, I recommend evaluation at nearest Emergency Room if any symptoms worsened or new symptoms develop for requiring urgent evaluation. Visit was preformed using [employer] Co-captain/airline pilot speech recognition. documented in this encounterKindred [id number] History of Present illness Narrative* LOLA Dickey - 09/02/2025 9:15 AM EDTAssociated Order(s): L Inj/Asp: L greater trochanteric bursa Post-Procedure Diagnose(s): Trochanteric bursitis of left hip Images from the original note were not included. Orthopedic Office note: NAME: Margy Oakes : 1945 EST PT WITH NEW C/O LT HIP PAIN ~1WK- NO KNOWN INJURY- NO TX XRAY LT HIP TODAY EPIC 09/02/25 PAIN LATERAL HIP- TENDER TO TOUCH- SOME DIFFICULTY WITH STAIRS- PT DOES RIDE A STATIONARY BIKE DAILY- +TYLENOL - SOME TINGLING IN LEG Physical Exam Hip Musculoskeletal Exam Gait Gait is normal. Inspection Leg length disparity: no discrepancy Left Erythema: none Ecchymosis: none Edema: none Deformity: none Palpation Left Increased warmth: none Tenderness: present Greater trochanteric region pain: moderate Range of Motion Left Left hip range of motion is within functional limits. Active ROM: normal. Passive ROM: normal. Strength Left Left hip strength is normal. Extension: 5/5. Flexion: 5/5. Internal rotation: 5/5. External rotation: 5/5. Adduction: 5/5. Abduction: 5/5. Abduction is affected by pain. Neurovascular Left Left hip neurovascular exam is normal. Pulses - PT: normal Posterior tibial: 2+ General Constitutional: appears stated age Labored breathing: no Psychiatric: normal mood and affect Neurological: alert and oriented x3 Skin: intact Lymphadenopathy: none Orders Placed This Encounter Procedures L Inj/Asp: L greater trochanteric bursa This order was created via procedure documentation XR hip left 2 or 3 views Reason for exam:: PAIN L Inj/Asp: L greater trochanteric bursa on 09/02/2025 10:23 AM Indications: pain Details: 21 G needle, lateral approach Medications: 40 mg methylPREDNISolone acetate 40 MG/ML; 2 mL bupivacaine PF 0.5 % Outcome: tolerated well, no immediate complications UTILIZING ASEPTIC TECHNIQUE PT GIVEN INJECTION IN LEFT HIP BURSA NEUROVASC INTACT S/P INJ, TOLERATED WELL Procedure, treatment alternatives, risks and benefits explained, specific risks discussed. Consent was given by the patient. Patient was prepped and draped in the usual sterile fashion. Results - Imaging: - X-ray of the left hip: - Femoral acetabular joint appears well maintained - Slight sclerotic focus noted on the medial aspect of proximal femur just below the lesser trochanter - Slightly asymmetric compared to the contralateral side - Some rotation on the x-ray ICD-10-CM 1. Left hip pain M25.552 XR hip left 2 or 3 views 2. Trochanteric bursitis of left hip M70.62 L Inj/Asp: L greater trochanteric bursa Assessment & Plan Left hip pain Pain localized to the lateral aspect of the hip, consistent with hip bursitis. She has a history ofleft knee replacement. No recent fever or illness reported. She has experienced pain during weightbearing activities and ambulation. An x- ray was discussed, revealing a well-maintained femoral acetabular joint. A slight sclerotic focus was observed on the medial aspect of the proximal femur, just below the greater trochanter and lesser trochanter, which appears slightly asymmetric compared to thecontralateral side, although there is some rotation on the x-ray. Treatment plan: A follow-up appointment is recommended in 3 weeks to monitor her progress. She expressed gratitude and had no further concerns or questions. If she experiences any exacerbation of pain in her left leg, she will adopt a nonweightbearing status until the subsequent office visit. Pt does not take any osteoporotic medications to be at risk for atypical femur fracture but pt does have history of Breast CA. Follow-up: 09/23/2025 PROCEDURE The patient had a left knee replacement in the past. Questions answered in laymen terms at the bedside. The diagnosis, home exercise plan and any ongoing restrictions/ recommendations reviewed. If unable to be reached in office, I recommend evaluation at nearest Emergency Room if any symptoms worsened or new symptoms develop for requiring urgent evaluation. Visit was preformed using [employer] Co-captain/airline pilot speech recognition. documented in this encounterKindred [id number] [facility] [place] [address] [place] [address] CT Scan Report Signed Patient: Margy Oakes MR#: [id number] : 1945 Acct:[id number] Age/Sex: 80 / F ADM Date: 5 Loc: ER Room: Type: [facility] ER Attending Dr: Copies to: Calvin [...] following dose reduction techniques: Automated exposure control, adjustmentof the mA and/or kV accordingto patient size, [...] Correa M.D. 07/01/2025 2:55 PM Dictation Location: [place] [address] Transcribed By: TRAM 07/01/251454 Dictated By: Marco Correa MD 07/01/251452 Signed By: 07/01/251454 [facility] Work Phone: 1(739) 745-812307-30-2025 [facility] Reason for cardiology visit: follow-up on coronary artery disease, hypertension, and hyperlipidemia HPI: 06/10/2025 Patient is here today with her for follow-up visit. She was recently on 05/29/2025 in [facility] ED because of intermittent chest pain at [...] on days 1-21 e (more content not included)...[facility]07-24-20[facility] Evaluation note* Diagnosis Onset Date Resolution Status Admit Date Acute kidney injury superimposed on CKD acuteJuly 2024 8:31amAnemia of chronic diseaseacuteJuly 2024 8:31am Breast canceracuteJuly 2024 8:31amCKD (chronic kidney disease) stage 3, GFR 30-59 ml/minacuteJuly 2024 8:31amHyperlipidemiaacuteJuly 2024 8:31amHypertensive chronic kidney disease with stage 1 through stage 4 chronic kiacuteJuly 2024 8:31am [facility] Work Phone: 1(353) 636-799807-10-2025 History of Present illness Narrative* María Thapa, DO - 05/21/2025 2:30 PM EDT Images from the original note were not included. [facility] Progress [facility] Patient - Margy Oakes Age - 80 y.[facility]. [facility] 1945 [id number] ASSESSMENT 1. Chronic cough and dyspnea on [...] peribronchial wall thickening. Dr. María Thapa DO. [facility] Office: [phone] documented in this encounterDayton VA Medical Center06-05-2025 Evaluation note* Diagnosis Onset Date Resolution Status Admit Date Acute kidney injury superimposed on CKD acuteApril 16, 2025 2:50pmAnemia of chronic diseaseacuteApril 16, 2025 2:50pm Breast canceracuteJun2024 2:50pmCKD (chronic kidney disease) stage 3, GFR 30-59 ml/minacuteApril 16, 2025 2:50pmHyperlipidemiaacuteApril 16, 2025 2:50pm Hypertensive chronic kidney disease with stage 1 through stage 4 chronic kiacute April 16, 2025 2:50pm [facility] Work Phone: 1(462) 813-995906-05-2025 Evaluation note* Diagnosis Onset Date Resolution Status Admit Date Acute kidney injury superimposed on CKD acuteJune 2024 2:50pmAnemia of chronic diseaseacuteJune 2024 2:50pm Breast canceracuteJune 2024 2:50pmCKD (chronic kidney disease) stage 3, GFR 30-59 ml/minacuteJune 2024 2:50pmHyperlipidemiaacuteJune 2024 2:50pm Hypertensive chronic kidney disease with stage 1 through stage 4 chronic kiacute April 16, 2025 2:50pmAcute kidney injury superimposed on CKDacuteJuly 2024 8:31amAnemia of chronic diseaseacuteJuly 2024 8:31amBreast canceracute Margaret 2024 8:31amCKD (chronic kidney disease) stage 3, GFR 30-59 ml/min acuteJuly 2024 8:31amHyperlipidemiaacuteJuly 2024 8:31amHypertensive chronic kidney disease with stage 1 through stage 4 chronic kiacuteJuly 2024 8:31am [facility] Work Phone: 1(858) 743-480704-11-2025 Miscellaneous Notes* Telephone Encounter - RATNA Frank - 02/20/2025 10:21 AM EDT Home nebulizer and tubing kit orders with supportive documentation faxed to [facility]. documented in this encounterDayton VA Medical Center04-11-2025 Telephone encounter Note* Telephone Encounter - RATNA Frank - 02/20/2025 10:21 AM EDT Home nebulizer and tubing kit orders with supportive documentation faxed to [facility]. [facility]04-11-2025 History of Present illness Narrative* María Thapa DO - 02/20/2025 7:39 AM EDT Notification from pharmacy received that advair diskus not covered and Breo preferred. Rx for Breo sent to pharmacy documented in this encounterCommunity Memorial HospitalEBS Technologies [facility] HospitalKlcspk01-30-5459 History of Present illness Narrative* María Thapa DO - 02/19/2025 10:45 AM EDT [facility] Progress Note Patient - Margy Oakes Age - 80 y.o. - 1945 [facility] [id number] ASSESSMENT 1. Chronic cough and dyspnea on [...] She recently had a trip to [facility] and had to stop frequently to [...] Meds Medications Reviewed. Dr. María Thapa DO. [facility] Office: [phone] documented in this encounterDayton VA Medical Center04-10-2025 Instructions* Patient Instructions* María Thapa DO - [...] full vial of medicine. documented in this encounterCommunity Memorial HospitalEBS Technologies [facility] HospitalKkgbsz44-59-4031 Miscellaneous Notes* Telephone Encounter - RATNA Frank - 02/12/2025 9:34 AM EDT Human Resources Analyst received message from requesting that we add patient over lunch on 02/19/2025, as Dr. Vazquez would like patient to see SE. Human Resources Analyst called patient and left voicemail asking for patient to return our call at her earliest convenience to get her scheduled. * Telephone Encounter - RATNA Frank - 02/12/2025 9:34 AM EDT Human Resources Analyst received message from requesting that we add patient over lunch on 02/19/2025, as Dr. Vazquez would like patient to see SE. Human Resources Analyst called patient and left voicemail asking for patient to return our call at her earliest convenience to get her scheduled. * Telephone Encounter - RATNA Frank - 02/12/2025 9:34 AM EDT Patient called office back and scheduled an appointment with SE on 02/19/2025 at 10:45am in [place]. documented in this encounterDayton VA Medical Center04-03-2025 Telephone encounter Note* Telephone Encounter - RATNA Frank - 02/12/2025 9:34 AM EDT Human Resources Analyst received message from requesting that we add patient over lunch on 02/19/[address], [address] Vazquez would like patient to see SE. Human Resources Analyst called patient and left voicemail asking for patient to return our call at her earliest convenience to get her scheduled. [facility]04-03-2025 Telephone encounter Note* Telephone Encounter - RATNA Frank - 02/12/2025 9:34 AM EDT Human Resources Analyst received message from requesting that we add patient over lunch on 02/19/2025, as Dr. Vazquez would like patient to see SE. Human Resources Analyst called patient and left voicemail asking for patient to return our call at her earliest convenience to get her scheduled. [facility] HospitalDesign[facility] Material [id number] Telephone encounter Note* Telephone Encounter - RATNA Frank - 02/12/2025 9:34 AM EDT Patient called office back and scheduled an appointment with SE on 02/19/2025 at 10:45am in [place]. [facility] HospitalDesign[facility] Material [id number] History of Present illness Narrative* Brannon Carranza, LOLA - 02/06/2025 11:30 AM EDTAssociated Order(s): L Inj/Asp: R knee Post-Procedure Diagnose(s): Arthritis of right knee Images from the original note were not included. HISTORY OF PRESENT ILLNESS: EST PT Margy Oakes is an 80 y.o. @ female. (EST PT, LAST VISIT WITH [facility]) RT KNEE PAIN, 3 YRS (2021)- NOTES GRADUAL INCREASE WITH PAIN- PT ISLEAVING FOR [place] ON SUNDAY- REQUESTING CORTISONE INJ PT RECENTLY DX WITH BREAST CA FOR THE 3RD TIME; CURRENTLY ON IBRANCE XRAY EPIC 08/27/24 XRAY [facility] 07/09/23 DEPO INJECTION 04/16/24, 08/27/24 PHYSICAL THERAPY [...] alleviate symptoms before her upcoming trip to [place]. She will contact the clinicon an as- needed basis if her symptoms worsen for reevaluation upon her return. There is no calf tenderness, and she has previously found relief from injections. If there is no improvement, consider membership coordinator bracing. PROCEDURE An injection was administered today to alleviate right knee pain. Questions answered in laymen terms at the bedside. The diagnosis, home exercise plan and any ongoing restrictions/ recommendations reviewed. If unable to be reached in office, I recommend evaluation at nearest Emergency Room if any symptoms worsened or new symptoms develop for requiring urgent evaluation. documented in this encounterKindred [id number] NoteB[facility] Note Reason for [...] 47 11/13/2024 Cholesterol 215, (more content not included)...[facility]02-10-2025 Instructions* Pre-Procedure Instructions - Paris Robertson RN - 12/22/2024 8:30 AM EST Your surgery/procedure is scheduled at [facility] on 12/25/2024 at 1315 Arrival Time 1115 [facility] Address: [address] [place] [address]. [place] [address] Park in [address] Parking lot located on [facility]. Report to the Entrance B. Check in at the information desk the surgery. The waiting room located on the second floor. If you have any questions prior to surgery, please call Pre-Admission Clinic at [phone] between 7:30 am and 4:30 pm Sunday through Sunday. If you have questions the morning of surgery, please call the Pre-op Department at [phone]. Notify your SURGEON if you develop any [...] piercings ,hair extensions that contain metal, nail english, make-up, and contact lens. You may brush [...] RIGHTS AND RESPONSIBILITIES As a patient at [facility], you have the right to: Receive medical care and be informed of who is taking care of you Be treated with dignity and respect Have a family member/vaccine customer representative of choice and your physician notified of your admission Receive information and actively participate in decisions about your care and treatment Refuse care, treatment and services Decide who may provide your support and speak for you Access sikh and spiritual services Participate in ethical issues [...] of hospital charges and payment methods Patient/patient vaccine customer representative responsibilities are to: Provide information about [...] RIGHTS AND RESPONSIBILITIES As a patient at [facility], you have the right to: Receive medical care and be informed of who is taking care of you Be treated with dignity and respect Have a family member/vaccine customer representative of choice and your physician notified of your admission Receive information and actively participate in decisions about your care and treatment Refuse care, treatment and services Decide who may provide your support and speak for you Access sikh and spiritual services Participate in ethical issues [...] of hospital charges and payment methods Patient/patient vaccine customer representative responsibilities are to: Provide information about [...] Control department if you have any questions. [facility]02-10-2025 Miscellaneous Notes* Pre-Procedure Instructions - Paris Robertson RN - 12/22/2024 8:30 AM EST Your surgery/procedure is scheduled at [facility] on 12/25/2024 at 1315 Arrival Time 1115 [facility] Address: [address] [place] [address] in P1 Parking lot located on [facility]. Report to the Entrance B. Check in at the information desk the surgery. The waiting room located on the second floor. If you have any questions prior to surgery, please call Pre-Admission Clinic at [phone] between 7:30 am and 4:30 pm Sunday through Sunday. If you have questions the morning of surgery, please call the Pre-op Department at [phone]. Notify your SURGEON if you develop any [...] piercings ,hair extensions that contain metal, nail english, make-up, and contact lens. You may brush [...] RIGHTS AND RESPONSIBILITIES As a patient at [facility], you have the right to: Receive medical care and be informed of who is taking care of you Be treated with dignity and respect Have a family member/vaccine customer representative of choice and your physician notified of your admission Receive information and actively participate in decisions about your care and treatment Refuse care, treatment and services Decide who may provide your support and speak for you Access sikh and spiritual services Participate in ethical issues [...] of hospital charges and payment methods Patient/patient vaccine customer representative responsibilities are to: Provide information about [...] RIGHTS AND RESPONSIBILITIES As a patient at [facility], you have the right to: Receive medical care and be informed of who is taking care of you Be treated with dignity and respect Have a family member/vaccine customer representative of choice and your physician notified of your admission Receive information and actively participate in decisions about your care and treatment Refuse care, treatment and services Decide who may provide your support and speak for you Access sikh and spiritual services Participate in ethical issues [...] of hospital charges and payment methods Patient/patient vaccine customer representative responsibilities are to: Provide information about [...] you have any questions. documented in this encounterDayton [facility] Medical Center02-04-2025 Miscellaneous Notes* Telephone Encounter - Franca Regalado RN - 12/16/2024 9:44 AM EST Patient currently scheduled for 01/06 for ION/ EBUS. Dr Whittaker is able to accommodate earlier on 12/25 and Endo said afternoon slot available which is his [...] at offered time. She is currently at [facility] and requests our office to call her later with the details. * Telephone Encounter - Franca Regalado RN - 12/16/2024 9:44 AM EST Spoke with patient. Instructed to hold aspirin on 12/20/24 for 5 days. Nothing to eat or drink after midnight. Arrive to [facility] by 1115 am for a procedure times of 115 pm. documented in this encounterMayo Memorial HospitalTrendMD02-04-2025 Telephone encounter Note* Telephone Encounter - Franca [...] being held on 12/25/24 at 115 pm. [employer] Work Phone: 1(749) 850-768602-04-2025 Telephone encounter Note* Telephone Encounter - Franca Regalado RN - 12/16/2024 9:44 AM EST Notification from Dr Thapa. The patient would like to have done at offered time. She is currently at [facility] and requests our office to call her later with the details. [employer]02-04-2025 Telephone encounter Note* Telephone Encounter - Franca Regalado RN - 12/16/2024 9:44 AM EST Spoke with patient. Instructed to hold aspirin on 12/20/24 for 5 days. Nothing to eat or drink after midnight. Arrive to [facility] by 1115 am for a procedure times of 115 pm. [employer]01-30-2025 Miscellaneous Notes* Telephone Encounter - Renae Torres RN - 12/11/2024 3:02 PM EST Human Resources Analyst attempted to contact patient. No answer. Left message for patient to contact office regarding procedure date and time. Left office phone number for reference. Patient will need to be informed of the following: Ion Navigational procedure w/EBUS under general anesthesia (Dx: Lung nodule) is scheduled for Dec at 1:00 pm. Patient to arrive to [facility] at 11:00 am. Patient to report [...] procedure. Tylenol only. Make arrangements for a ice cream truck driver to bring you to and from the hospital on the day of the procedure Bring your ID, current medication list and insurance cards to the hospital Call our office if you become ill such as a cold, cough, fever, sore throat or vomiting on the day before or day of the general office worker to update Dr Thapa Case #[id number] * Telephone Encounter - Renae Torres RN - 12/11/2024 3:02 PM EST Patient returned call. Human Resources Analyst informed patient of the following: Ion Navigational procedure w/EBUS under general anesthesia (Dx: Lung nodule) is scheduled for Dec at 1:00 pm. Patient to arrive to [facility] at 11:00 am. Patient to report [...] procedure. Tylenol only. Make arrangements for a ice cream truck driver to bring you to and from the hospital on the day of the procedure Bring your ID, current medication list and insurance cards to the hospital Call our office if you become ill such as a cold, cough, fever, sore throat or vomiting on the day before or day of the procedure Patient agreeable to above information and verbalized understanding Human Resources Analyst to update Dr Thapa Case #[id number] * Telephone Encounter - Renae Torres RN [...] 115 pm with TSA documented in this encounterCommunity Memorial HospitalSeguricel [id number] Telephone encounter Note* Telephone Encounter - Renae Torres RN - 12/11/2024 3:02 PM EST Human Resources Analyst attempted to contact patient. No answer. Left message for patient to contact office regarding procedure date and time. Left office phone number for reference. Patient will need to be informed of the following: Ion Navigational procedure w/EBUS under general anesthesia (Dx: Lung nodule) is scheduled for Dec at 1:00 pm. Patient to arrive to [facility] at 11:00 am. Patient to report [...] procedure. Tylenol only. Make arrangements for a ice cream truck driver to bring you to and from the hospital on the day of the procedure Bring your ID, current medication list and insurance cards to the hospital Call our office if you become ill such as a cold, cough, fever, sore throat or vomiting on the day before or day of the general office worker to update Dr Thapa Case #[id number] [employer]01-30-2025 Telephone encounter Note* Telephone Encounter - Renae Torres RN - 12/11/2024 3:02 PM EST Patient returned call. Human Resources Analyst informed patient of the following: Ion Navigational procedure w/EBUS under general anesthesia (Dx: Lung nodule) is scheduled for Dec at 1:00 pm. Patient to arrive to [facility] at 11:00 am. Patient to report [...] procedure. Tylenol only. Make arrangements for a ice cream truck driver to bring you to and from the hospital on the day of the procedure Bring your ID, current medication list and insurance cards to the hospital Call our office if you become ill such as a cold, cough, fever, sore throat or vomiting on the day before or day of the procedure Patient agreeable to above information and verbalized understanding Human Resources Analyst to update Dr Thapa Case #[id number] [employer]01-30-2025 Telephone encounter Note* Telephone Encounter - Renae Torres RN - 12/11/2024 3:02 PM EST Patient completed labs today but does not stop aspirin until 12-30-24. Do you want her to repeat them? [facility] HospitalDesign[facility] Material [id number] Telephone encounter Note* Telephone Encounter - María Thapa DO - 12/11/2024 3:02 PM EST No that is fine [facility] Hospital[facility] [id number] Telephone encounter Note* Telephone Encounter - Franca Regalado RN - 12/11/2024 3:02 PM EST Procedure moved up to 12/25/24 at 115 pm with TSA [facility] HospitalBio[facility] Work Phone: 1(755) 940-490001-30-2025 History of Present illness Narrative* María Thapa DO - 12/11/2024 12:00 PM EST Images from the original note were not included. [facility] Pulmonary And Sleep Consult Patient - Margy Oakes Age - 79 y.[facility]. - 1945 [id number] Referring physician: Dr. 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 She is a never smoker. Her father suffered from bone cancer and prostate cancer. She denies any personal or family history of rheumatologic conditions however she did follow with rheumatology [facility]. She is mostly bothered by this [...] Past Medical History: Diagnosis Date Angina pectoris ([facility]) Arthralgia of multiple joints Arthritis Bicipital tendinitis Breast cancer ([facility]) 2024 Cancer ([facility]) breast x2 Carpal tunnel syndrome Dizziness vertigo Fibromyalgia, primary GERD (gastroesophageal reflux disease) Headache Heart burn Hyperlipidemia Hypertension Lumbosacral spinal stenosis Meningioma ([facility]) 07/2019 STABLE Neuropathy Obesity Osteoarthritis Positive SATYA (antinuclear antibody) Radiculopathy of lumbosacral region Trochanteric bursitis of right hip Varicella Visual impairment glasses Past Surgical History: Procedure Laterality Date ADENOIDECTOMY APPENDECTOMY 1960 BREAST BIOPSY 1996 BREAST LUMPECTOMY Bilateral 1992 Right; 1995 Left BUNIONECTOMY CARDIAC CATHETERIZATION 05/2019 CARDIAC CATHETERIZATION 1997 [facility] CARDIAC CATHETERIZATION 12/10/2024 COLONOSCOPY 06/08/2014 Dr. Robles COLONOSCOPY 11/09/2008 Dr. Robles COLONOSCOPY N/A 07/26/2020 Performed by Maverick Robles MD at [facility] EGD N/A 07/26/2020 Performed by Maverick Robles MD at [facility] FOOT SURGERY 09/2019 HYSTERECTOMY JOINT REPLACEMENT Left KNEE ARTHROSCOPY 2016 LYMPH NODE BIOPSY 1992 &1995 MASTECTOMY Bilateral MOUTH SURGERY REPLACEMENT TOTAL JOINT KNEE Left 01/15/2018 Performed by Jr Pepe Jeffries DO at [facility] TARSAL TUNNEL RELEASE TONSILLECTOMY 194 Lyrica [...] Results: None Radiology Dr. María Thapa DO. [facility] Pulmonary & Critical Care Office: [phone] documented in this encounterMayo Memorial HospitalTrendMD01-28-2025 NotePatient needs cardiac clearance before she undergoes [...] be at low risk for perioperative cardiac events.[facility] 12-09-2024 NotePatient: Margy Oakes Procedure Information Date/Time: 12/09/24 1030 Procedure: Coronary angiography Location: [facility] 2 BIPLANE / [facility] (Cath) Providers: Kimmy Rosado MD Clinical information reviewed: Allergies Meds Physical Exam Airway Mallampati: III Cardiovascular Dental Pulmonary Abdominal Anesthesia Plan ASA 3 other (Conscious sedation) intravenous induction Anesthetic plan and risks discussed with patient. Use of blood products discussed with patient who consented to blood products. Plan discussed with attending and fellow. Additional Equipment RequestsLouis Stokes [facility] Center12-30-2024 Note [place] [facility] Note Reason for cardiology [...] has a past medical history of Cancer ([facility]), Coronary artery disease, Hyperlipidemia, and Hypertension. [...] EKG today 11/10/2024 s (more content not included)...[facility]12-13-2024 NoteXR CHEST 2 VWS History: [...] by Norberto Corrigan MD on 10/24/2024 4:[address] [facility] 08-27-2024 History of Present illness Narrative* Lavinia Rios NP - 08/27/2024 10:15 AM EDTAssociated Order(s): L Inj/Asp: R knee Post-Procedure Diagnose(s): Primary osteoarthritis of right knee Images from the original note were not included. NAME: Margy Oakes : 1945 HISTORY OF PRESENT ILLNESS: Margy Oakes is an 79 y.o. @ female. (EST PT) RT KNEE PAIN, 2 YRS (2021), CONTINUES GETTING WORSE. WENT TO [facility] ER 07/19 AFTER A FALL - HASHAD PAIN SINCE LAST DEPO INJ 04/16 XRAY TODAY EPIC 08/27/24 XRAY [facility] 07/09/23 DEPO INJECTION 04/16/24 PHYSICAL THERAPY @ PT LINK- WITHIN THE LAST YEAR NOTES GOOD RELIEF FROM INJECTION UNTIL HER FALL. PAIN MEDIAL AND LATERAL KNEE. TAKING TYL. DENIES N/T, SWELLING. OCCAS GIVING OUT. PAST MEDICAL HISTORY: Past Medical History: Diagnosis Date Breast cancer (CMS/HCC) Hypertension (CMS/HCC) PAST SURGICAL HISTORY: Past Surgical History: Procedure Laterality Date APPENDECTOMY 1960 BREAST BIOPSY Right 1993 BREAST BIOPSY Left 1996 BREAST LUMPECTOMY Right [...] Left knee osteoarthritis with valgus alignment. Lavinia Rios OTA-PURCHASING/RECEIVING L Inj/Asp: R knee on 08/27/2024 12:21 [...] symptoms develop for requiring urgent evaluation. Lavinia Rios, [place]-PURCHASING/RECEIVING documented in this encounterKindred [id number] History of Present illness Narrative* Ignacio Augustine MD - 01/11/2024 9:40 AM EST Images from the original note were not included. [facility] [address] [place] [address], [address] [place] [address] * FOLLOW-UP NOTE ? 01/11/2024 Patient: Margy Oakes 1945 [id number] Physician: Ignacio Augustine MD, FACS CHIEF COMPLAINT [...] record of the patient encounter. Inadvertent computerized docketing specialist errors related to syntax, spelling, homophones, and/or inaudibility may be present. documented in this [facility]03-01-2024 Instructions* Patient Instructions* Katelyn Stevens CMA - 01/11/2024 9:40 AM EST Patient was seen today by Dr. Augustine documented in this [facility]12-29-2023 Miscellaneous Notes* Telephone Encounter - Estrella Brown [...] order will be placed. documented in this [facility]12-29-2023 Telephone encounter Note* Telephone Encounter - Estrella [...] informed that a order will be placed. [facility]07-20-[facility]22 NotePROCEDURE: XR FOOT RT MIN 3 [...] Electronically authenticated by: NORBERTO IVAN Date: 2022-05-31 21:57[facility]06-21-2022 NoteCONSULTATION PROCEDURE DATE: 05/02/2022 PREOPERATIVE [...] will be followed up in the office. [facility] Signed and Approved by: DR BERNABE PRATHER . 05/09/2022 09:22:00[facility]06-21-2022 NoteCONSULTATION CONSULTATION DATE: 05/02/2022 CHIEF [...] we need to follow through with the cutter operator's recommendation. Subsequent to the visit today, the patient will be followed up for return visit in 2-3 months. The patient understands and would like to proceed. CC: Lucia Esteban M.D. [facility] Signed and Approved by: DR BERNABE PRATHER . 05/09/2022 09:22:00[facility]06-07-2022 NoteCONSULTATION PROCEDURE DATE: 04/18/2022 PREOPERATIVE [...] Approved by: DR BERNABE PRATHER . 04/25/2022 08:30:00[facility]06-07-2022 NoteCONSULTATION CONSULTATION DATE: 04/18/2022 CHIEF [...] Approved by: DR BERNABE PRATHER . 04/25/2022 08:30:00[facility]05-24-2022 NotePROCEDURE: XR FOOT RT MIN [...] Electronically authenticated by: NORBERTO IVAN Date: 2022-04-04 09:40[facility]05-24-2022 NotePROCEDURE: XR FOOT RT MIN [...] Electronically authenticated by: NORBERTO IVAN Date: 2022-04-04 09:40[facility]05-17-2022 NoteCONSULTATION PROCEDURE DATE: 03/28/2022 PREOPERATIVE [...] Approved by: DR BERNABE PRATHER . 04/04/2022 12:22:00[facility]05-17-2022 NoteCONSULTATION CONSULTATION DATE: 03/28/2022 CHIEF [...] Approved by: DR BERNABE PRATHER . 04/04/2022 12:22:00[facility]04-19-2022 NoteCONSULTATION Consultation Date:02/28/2022 PAIN MANAGEMENT [...] Approved by: DR BERNABE PRATHER . 03/07/2022 12:16:00[facility]04-05-2022 NoteCONSULTATION PAIN MANAGEMENT CONSULTATION CHIEF COMPLAINT: Bilateral leg pain. HISTORY OF PRESENT ILLNESS: This is a very pleasant, 77-year-old female, who was referred to us by physician assistant distribution manager, Loly Fox. The patient's family physician [...] Approved by: DR BERNABE PRATHER . 02/21/2022 11:53:00[facility]04-05-2022 NoteCONSULTATION PROCEDURE NOTE PREOPERATIVE DIAGNOSIS: [...] Approved by: DR BERNABE PRATHER . 02/21/2022 11:53:00[facility]* Diagnosis Primary osteoarthritis of right knee- Primary Right knee pain, unspecified chronicity documented in this encounter [facility] HealthcareEvaluation note* Diagnosis Pulmonary nodules/lesions, multiple- Primary Other diseases of lung, not elsewhere classified Pulmonary nodule Other diseases of lung, not elsewhere classified documented in this encounter [facility]* Diagnosis Preop testing- Primary Unspecified pre-operative examination Pulmonary nodule Other diseases of lung, not elsewhere classified SOB (shortness of breath) Shortness of breath documented in this encounter [facility] System[facility] note* Diagnosis Neuropathy- Primary Mononeuritis of unspecified site documented in this encounter [facility] note* Diagnosis Neuropathy- Primary Mononeuritis of unspecified site [facility] this encounter [facility]* Diagnosis Acute pain of right knee- Primary Arthritis of right knee documented in this encounter [facility] HospitalEvaluation [facility]* Diagnosis Moderate persistent asthma without complication- Primary documented in this encounter [facility]* Diagnosis Pulmonary nodules/lesions, multiple- Primary Other diseases of lung, not elsewhere classified Dyspnea on exertion Other dyspnea and respiratory abnormality Moderate persistent asthma without complication documented [facility] this encounter [facility]* Diagnosis Onset Date Resolution Status Admit Date Acute kidney injury superimposed on CKD acuteJune 2024 2:50pmCKD (chronic kidney disease) stage 3, GFR 30-59 ml/min acuteJune 2024 2:50pmHyperlipidemiaacuteJune 2024 2:50pmHypertensive chronic kidney disease with stage 1 through stage 4 chronic kiacuteJune 2024 2:50pm [facility] Work Phone: Evaluation noteNo assessment information available [facility] Work Phone: evaluation note* Diagnosis Pulmonary nodules/lesions, multiple- Primary Other diseases of lung, not elsewhere classified Moderate persistent asthma without complication documented in this encounter [facility]* Diagnosis Left hip pain- Primary Pain in joint, pelvic region and thigh Trochanteric bursitis of left hip documented in this encounter [facility]* Diagnosis Left hip pain- Primary Pain in joint, pelvic region and thigh Arthritis of right knee Chronic pain of right knee Trochanteric bursitis of left hip documented in this encounter [facility] HospitalHospital Discharge instructions Additional Instructions CT scan of the head is negative for acute injury.[facility] Work Phone: Hospital Discharge instructions Additional Instructions [...] NOT operate machinery such as power tools, [employer] / [employer]án mowers, Grade[employer] blowers, sewing machines, etc. for 24 hours. [...] problems. -Follow up with PCP. -Office number [phone]. [facility] Work Phone: InstructionsNot on filedocumented in this [...] for referral (narrative)No reason for referral information availableTrumbull Regional Medical Center Work Phone: Summary Purpose Family History Relationship Condition Age at Onset Recorded Date/T charbel father Malignant neoplasm Unknown motherMalignant neoplasmUnknown Relationship Condition Age at Onset Recorded Date/T charbel father Malignant neoplasm Unknown Malignant neoplasm of prostateUnknownMalignant neoplasm of boneUnknownDeceased UnknownmotherMalignant neoplasmUnknownMalignant neoplasm of lungUnknownbrother Malignant neoplasm of boneUnknown Advance Directives Advance Directive Response Recorded Date/ Time Advance Directives No April 16 2:46pm Reason for Referral SpecialtyDiagnoses / ProceduresReferred By ContactReferred To ContactRadiology Diagnoses Neuropathy Procedures MR lumbar spine without contrast Ignacio Augustine MD [address] [place] [address] [address] [place] [address] Referral IDStatusReasonStart DateExpiration DateVisits RequestedVisits [id number]/ Chief Complaint and Reason for Visit Chief [...] 16, 2025 2:50pm Anemia of chronic disease Shruthi 5th, 2025 2:50pm Breast cancer April 16, 2025 [...] Complaint Admit Date RENAL 6 WEEK F/U June 04, 2025 [...] and content) DATE CREATED AUTHOR 07/11/2019 [facility] DATE CREATED AUTHOR AUTHOR'S ORGANIZ ATION 06/15/2022 [facility] DATE CREATED AUTHOR AUTHOR'S ORGANIZ ATION 12/14/2024 [facility] DATE CREATED AUTHOR AUTHOR'S ORGANIZ ATION 03/31/2025 [facility] DATE CREATED AUTHOR AUTHOR'S ORGANIZ ATION 05/26/2025 [facility] [facility] DATE CREATED AUTHOR AUTHOR'S ORGANIZ ATION 06/12/2025 [facility] DATE CREATED AUTHOR AUTHOR'S ORGANIZ ATION 07/26/2025 [facility] DATE CREATED AUTHOR AUTHOR'S ORGANIZ ATION 09/21/2025 [facility] DATE CREATED AUTHOR AUTHOR'S ORGANIZ ATION 09/24/2025 [facility] EPIC Source Comments (unrecognize d section and content) In the event this informatio n is protected by the Federal Confidentiality of Alcohol and Drug Abuse Patient Records regulations: The Federal rules restrict any use of the information to criminally investigate or prosecute any alcohol or drug abuse patient.[facility] Care Teams (unrecognized sec tion and content) Team MemberRelationshipSpecialtyStart DateEnd Date Lucia Esteban MD [address] [address] PCP - External PCPFamily Medicine04/21/23 Lucia Esteban MD [address] [address] PCP - GeneralFamily Medicine04/16/24Team MemberRelationshipSpecialtyStart DateEnd Lucia Esteban MD [address] [address] PCP - External PCPFamily Medicine04/21/23 Lucia Esteban MD [address] [address] PCP - GeneralFamily Medicine04/16/24Team MemberRelationshipSpecialtyStart DateEnd Date Lucia Esteban MD [address] [address] PCP - General05/04/15Team MemberRelationshipSpecialtyStart DateEnd Date Lucia Esteban MD [address] PCP - General05/04/15Team MemberRelationshipSpecialtyStart DateEnd Date Lucia Esteban MD [address] [address] PCP - General05/04/15Team MemberRelationshipSpecialtyStart DateEnd Date Lucia Esteban MD [address] [address] PCP - General05/04/15Team MemberRelationshipSpecialtyStart DateEnd [facility] Lucia Esteban MD [address] [phone] (Work) PCP - General05/04/15Team MemberRelationshipSpecialtyStart DateEnd [facility] Lucia Esteban MD [address] [address] PCP - General05/04/15Team MemberRelationshipSpecialtyStart DateEnd [facility] Lucia Esteban MD [address] [address] PCP - General05/04/15Team MemberRelationshipSpecialtyStart DateEnd [facility] Lucia Esteban MD [address] [address] PCP - External PCPFamily Medicine04/21/23 Lucia Esteban MD [address] [place] [address] PCP - GeneralFamily Medicine04/16/24Team MemberRelationshipSpecialtyStart DateEnd Date Lucia Esteban MD [address] [place] [address] PCP - External PCPFamily Medicine04/21/23 Lucia Esteban MD [address] [place] [address] PCP - Generalmily Medicine04/16/24Team MemberRelationshipSpecialtyStart DateEnd Date Lucia Esteban MD [address] [address] PCP - General05/04/15Team MemberRelationshipSpecialtyStart DateEnd Date Lucia Esteban MD [address] [address] PCP - General05/04/15Team MemberRelationshipSpecialtyStart DateEnd Date Lucia Esteban MD [address] [place] [address] PCP - General05/04/15Team MemberRelationshipSpecialtyStart DateEnd Date Lucia Esteban MD [address] [place] [address] PCP - General05/04/15Team MemberRelationshipSpecialtyStart DateEnd Date Lucia Esteban MD [address] [place] [phone] PCP - External PCPFami Medicine04/21/23 Lucia Esteban MD [address] [phone] PCP - [facility]04/16/24Team MemberRelationshipSpecialtyStart DateEnd Date Lucia Esteban MD [address] [phone] PCP - External [facility]04/21/23 Lucia Esteban MD [address] [phone] PCP - [facility]04/16/24 Team Status: Active Member Role Status Dates Lucia Esteban MD Primary Care Provider Active Team Status: Inactive Member Role Status Dates Stefani Quezdaa MD Attending Provider Active Sta rt: March 28, 2025 End: March 28, 2025 Team Status: Inactive Member Role Status Dates Natasha Vazquez MD Attending Provider Active St art: April 14, 2025 End: April 14, 2025 Team Status: Inactive Member Role Status Dates Shyam Crowell MD Attending Provider Active Start : April 16, 2025 End: April 16, 2025SHARON [facility] Care ProviderActiveStart: April 16, 2025 End: April 16, 2025 Team Status: Inactive Member Role Status Dates Shyam Crowell MD Attending Provider Active Start : April 16, 2025 End: April 16, 2025Team MemberRelationshipSpecialtyStart DateEnd Date Lucia Esteban MD [address] [phone] PCP - General05/04/15Team MemberRelationshipSpecialtyStart DateEnd Date Lucia Esteban MD [address] [place] [address] PCP - General05/04/15 Team Status: Active Member Role Status Dates NON STAFF Primary Care Provider Active Team Status: Inactive Member Role Status Dates Shyam Crowell MD Attending Provider Active Start : June 04, 2025 End: June 04, 2025NON STAFFPrimary Care ProviderActiveStart: June 04, 2025 End: June 04, 2025 Team Status: Inactive Member Role Status Dates Natasha Vazquez MD Attending Provider Active St art: June 16, 2025 End: June 16, 2025 Team Status: Inactive Member Role Status Dates Nicky Costello Ly , DO Attending Provider Active St art: July 01, 2025 End: July 01, 2025SHARON [facility] Care ProviderActiveStart: July 01, 2025 End: July 01, 2025 Team Status: Inactive Member Role Status Dates Lucia Esteban MD Primary Care Provider Active Start: July 01, 2025 End: July 01, 2025LOLA Howard-CEmergency ProviderActiveStart: July 01, 2025 End: July 01, 2025 Team Status: Active Member Role Status Dates Lucia Esteban MD Primary Care Provider Active Start: July 20, 2025 Nicky L Ly , DOAttending ProviderActiveStart: July 20, 2025 Nicky L Ly , DOOther ProviderActiveStart: July 20, 2025 Team MemberRelationshipSpecialtyStart DateEnd Date Lucia Esteban MD [address] [place] [address] PCP - External PCPFamily Medicine04/21/23 Lucia Esteban MD [address] [place] [address] PCP - GeneralFamily Medicine04/16/24Team MemberRelationshipSpecialtyStart DateEnd Date Lucia Esteban MD [address] [place] [phone] PCP - External PCPFamily Medicine04/21/23 Lucia Esteban MD [address] [place] [phone] PCP - GeneralFamily Medicine04/16/24Team MemberRelationshipSpecialtyStart DateEnd Date Lucia Esteban MD [address] [place] [address] PCP - External PCPFamily Medicine04/21/23 Lucia Esteban MD [address] [place] [address] PCP - GeneralFamily Medicine04/16/24 Reason for Visit (unrecogniz ed section and content) ReasonCommentsPainReasonCommentsNew PatientCT: 11/14/2024PET CT: 12/02/2024Lung NoduleSpecialtyDiagnoses / ProceduresReferred By ContactReferred To Contact Pulmonary Medicine Diagnoses Pulmonary nodule Natasha Vazquez MD [address] [place] [address] [address] [place] [address] Phone: tel: fax: [facility] [address] [address] Phone: tel: fax: Referral IDStatusReasonStart DateExpiration DateVisits RequestedVisits [id number] Review Specialty Services Required [id number] RefillReasonOnset DateCommentsMRI 11/09/2023ReasonCommentsFollow-upEp review mriReasonCommentsFollow-upPulmonary nodules/lesions, multipleCXR: 12/25/2024ReasonCommentsFollow-upLabs n completed CT 04/27CoughdecreasedShortness of BreathnoneWheezingSome but small Goals (unrecognized section and content) [...] BE BASED ON THE PRIMARY CLINICAL RECORDS. [facility] [employer] [facility]. provides no warranty or guarantee of the accuracy or completeness of information in this document.
[2025-10-21 10:16] LABS: Hematocrit 32.7 % (36.0-48.0); Hemoglobin 10.4 g/dL (12.0-16.0); Mean Corpuscular HGB Conc 31.8 g/dL (29.9-35.2); Mean Corpuscular Hemoglobin 32.4 pg (26.7-34.0); Mean Corpuscular Volume 101.9 fL (81.0-99.0); Platelet Count 343 10^3/uL (150-450); Red Blood Count 3.21 10^6/uL (4.20-5.40); White Blood Count 8.9 10^3/uL (4.0-11.0)
[2025-10-21 10:25] LABS: Albumin Level 3.6 g/dL (3.4-5.0); Anion Gap 11.3; Blood Urea Nitrogen 30.0 mg/dL (7.0-18.0); Calcium 9.3 mg/dL (8.5-10.1); Carbon Dioxide 30.7 mmol/L (21.0-32.0); Chloride 102 mmol/L (98-107); Estimated GFR (African America 31 (>=60 mL/min/1.73m^2); Estimated GFR (Non-African Ame 26 (>=60 mL/min/1.73m^2); Glucose 78 mg/dL (74-106); Potassium 5.0 mmol/L (3.5-5.1); Sodium 139 mmol/L (136-145); Uric Acid 6.0 mg/dL (2.6-6.0)
[2025-10-21 11:21] LABS: Glucose Urine UA NEGATIVE (NEGATIVE)
[2025-10-21 11:30] LABS: Cast Seen? NONE SEEN #/LPF (NONE SEEN); Crystals Seen? None Seen #/HPF (None Seen)
== END 2025-10-21 09:29 | disposition home or self-care (01) ==
LOC: LAB 09:30
PROVIDERS: PCP Family Medicine; Visit Provider Internal Medicine
DX: C50.919 Malignant neoplasm of unspecified site of unspecified female breast (principal); D63.8 Anemia in other chronic diseases classified elsewhere; E78.5 Hyperlipidemia, unspecified; I12.9 Hypertensive chronic kidney disease with stage 1 through stage 4 chronic kidney disease, or unspecified chronic kidney disease; N18.30 Chronic kidney disease, stage 3 unspecified; N17.9 Acute kidney failure, unspecified
CPT/HCPCS: 36415; 80069; 81001; 84550; 85027

== ENCOUNTER 2025-10-21 09:35 | Outpatient (OUT) | payer MEDICARE, SELFPAY ==
--- NOTE | 2025-10-21 09:39 | CT_ITS ---
The [address] [address] Patient Name: EPI MUSTAFA MRN: [id number] date: 1945 Sex: F Assigned Patient Location: CT Current Patient Location: CT Accession/Order Number: [id number] Exam Date: 10/21/2025 09:41 Report Date: 10/21/2025 11:27 At the request of: PEYTON MCMILLAN MD Procedure: CT chest wo con CT CHEST WITHOUT CONTRAST CLINICAL DATA: Follow-up pulmonary nodularity. History bilateral breast cancer. COMPARISON: PET/CT 08/17/2025 Spiral axial unenhanced images were obtained through the chest. Images were reviewed using both narrow and wide window settings. This CT exam was performed using one or more following dose reduction techniques: Automated exposure control, adjustment of the mA and/or kV according to patient size, or use of iterative reconstruction technique. The heart is top normal in size. No pericardial effusion is noted. Coronary artery disease is seen. There is no aortic aneurysm. Atherosclerotic plaque is visualized at the aortic arch and proximal great vessels. There are calcified subcarinal and left hilar granulomas. No enlarged lymph nodes are seen. Hemostasis clips are present at the axilla, right more than left and there is prior bilateral mastectomy. There are similar exophytic nodularity at the inferior thyroid gland which was not hypermetabolic on the comparison PET/CT. Mild dextroscoliotic curvature and small endplate spurs are seen at the spine. Once again, there is some respiratory motion. Scarring is again visualized at the lung apices and upper lobes. There is also additional atelectasis and/or scarring at the lower lungs. No developing consolidation, pleural effusion or pneumothorax is noted. Stable small bilateral pulmonary nodules are seen. Limited imaging through the upper abdomen shows calcified splenic granulomas. CT/CT chest wo con IMPRESSION: GRANULOMATOUS CHANGES. STABLE TINY PULMONARY NODULES. SCARRING AND/OR ATELECTASIS. NO NEW ABNORMALITIES. Impression dictated by: Billie Houston M.D. 10/21/2025 11:27 AM Dictation Location: [place] [address] Electronically authenticated by: [id number] Y Date: 10/21/2025 11:27
--- OUTSIDE RECORDS SUMMARY | 2025-10-21 09:49 | XMS_ITS | CCD ---
Author Organization [facility] Care Team Providers Care Roll Cutter Name Role Phone UNKNOWN, PROVIDER Admitting Unavailable [...] Unavailable Lucia Esteban MD Primary Care Provider Lucia Esteban MD Primary Care Provider MARÍA THAPA Attending Unavailable MARÍA THAPA Referring Unavailable ESTEBAN, LUCIA A Primary Care Unavailable MARÍA THAPA Referring Unavailable ESTEBAN, LUCIA A Primary Care Unavailable Lucia Esteban MD Primary Care Provider ESTEBAN, LUCIA A Primary Care Unavailable SAID ISIDRA SIMMONS Admitting Unavailable SAID AHISIDRA GERBER Attending Unavailable ESTEBAN, LUCIA A Primary Care Unavailable ESTEBAN, LUCIA A Referring Unavailable ESTEBAN, LUCIA A Primary Care Unavailable Stefani Quezada MD Attending Provider [phone] Natasha Vazquez MD Attending Provider [phone] Shyam Crowell MD Attending Provider ESTEBAN, LUCIA [...] Ly DO, Nicky L Attending Provider Calvin Praekh PA-C Emergency Provider [phone] Shyam Crowell MD Attending Provider Natasha Vazquez MD Attending Provider [phone] Lucia Esteban MD Primary Care Provider Ly [...] SocratesShyam Attending Unavailable Lucia Esteban MD Unavailable [phone] Lucia Esteban MD Primary Care Provider [...] Allergen(s)Allergy TypeDate of OnsetReaction(s) Facility (3 sources)LevamisoleDrug Sicfvty46-20-9783Mhv [facility] Repository (1 source)PenicillinDrug Iybexue83-91-2634Jcc [facility] Repository (2 sources)pregabalinDrug Onewvpn02-47-6028Ulg [facility] Repository (15 sources)Penicillins; Translations: [PENICILLINS]Drug allergy (disorder) 89-41-4547pda like [facility] Repository (14 sources)PenicillinsDrug Tuguffwbbws61-62-1180GodshjwsTJPW Healthcare Work Phone: (20 sources)Pregabalin; Translations: [PREGABALIN]Allergy to robdkqrim35-47-6672 Dizziness, Headache, Other, Shortness of breathNOMS Healthcare (20 sources)Promethazine; Translations: [PROMETHAZINE]Drug Vvkhqbe33-72-4637 Anxiety, Dizziness, Hallucinations, Itching, Other, Palpitations, Other (See Comments)[facility] (7 sources)PenicillinsPropensity to adverse reactions to pyyj53-71-6368Hvrwz (See Comments)[facility] (13 sources)pregabalinDrug Qnizerz30-23-8903Btusx (See Comments)[facility] (6 sources)PenicillinsPropensity to adverse reactions to nqhe17-99-3202Nxomx (See Comments)[facility] (9 sources)fentaNYL; Translations: [fentanyl]Drug Hixbopf32-07-8853wswcebc [facility] (1 source)PenicillinsDrug allergy (disorder)12-73-1972YvwrrqtpnSt. [facility] (1 source)pregabalinDrug Usixlvc16-22-8898IeqefuidpSt. [facility] Rep[facility] (1 source)PromethazineDrug Ozzpudc93-86-7521EhaevwqtcSt. [facility] Repository Medications Current Medications MedicationDrug Class(es)DatesSig (Normalized)Sig (Original)[id number] 200 actuat albuterol 0.09 mg/actuat metered dose inhaler (20 sources)beta2-Adrenergic AgonistStart: 27-95-8571zqgp 1 puff(s) by inhalation every six hours as needed for wheezingAlbuterol Sulfate (Ventolin Hfa) 90 mcg/actuation HFA aerosol inhaler Active 2 PUFF INHALATION Every 6 hours as needed for shortness of breath or wheezing April 16, 2025 12:00am Complies with drug therapyStart: 46-76-6553zkgu 3 mL by inhalation four times daily as needed for wheezingalbuterol (PROVENTIL,VENTOLIN) 2.5 mg /3 mL (0.083 %) nebulizer solution Indications: Moderate persistent asthma without complication Inhale 3 mL (2.5 mg total) by nebulization 4 (four) times a day as needed for wheezing. 75 mL 12 02/19/2025 ActiveStart: 87-19-0665lfhz 2 puff(s) by inhalation every six hours [...] 10 mg oral tablet (20 sources)Tricyclic AntidepressantStart: 79-41-6802kdif 2 tablets by mouth once daily at bedtimeAmitriptyline 10 mg tablet Active 20 MG PO Daily at bedtime April 16, 2025 12:00am Complies with drug therapyamitriptyline (Elavil) 10 MG tablet Activeapple cider vinegar 500 mg oral tablet (3 sources) End: 82-15-4409pnkvi cider vinegar 500 mg tablet Take 450 [...] mg oral tablet (20 sources)HMG-CoA Reductase InhibitorStart: 50-96-2671ppjv 4 tablets by mouth once daily at bedtimeAtorvastatin 20 mg tablet Active 80 MG PO Daily at bedtime April 16, 2025 12:00am Complies with drug therapyStart: 35-19-2033cwrd 1 tablet by mouth once daily at [...] capsule (20 sources)Serotonin and Norepinephrine Reuptake InhibitorStart: 77-15-2321bpon 1 capsule by mouth once dailyDuloxetine (Cymbalta) 60 mg capsule,delayed release(DR/EC) Active 60 MG PO Daily April 16, 2025 12:00am Complies with drug therapy1 ml epoetin jose 36156 unt/ml injection (12 sources)Erythropoiesis-stimulating AgentStart: 48-56-4859wxjrup 67864 [IU] by subcutaneous injection every other weekEpoetin Jose (Procrit) 40,000 unit/mL solution Active 18945 UNIT SUBCUT .Q2wks April 16, 2025 12:00am Complies with drug therapyepoetin jose (Epogen,Procrit) 95702 UNIT/ML injection Inject 40,000 Units under the skin Activeerythromycin 0.005 mg/mg ophthalmic ointment (13 sources)Macrolide, Macrolide AntimicrobialStart: 77-98-6841zvdiyuqduceq (ILOTYCIN) ophthalmic ointment 06/24/2020 Activefluticasone / salmeterol (2 sources)Corticosteroid, beta2-Adrenergic AgonistStart: 02-19-2025 End: 55-62-0144iiwl 1 puff(s) by inhalation in the morningfluticasone propion- salmeteroL (ADVAIR DISKUS) 250-50 mcg/dose DISKUS Indications: Moderate persiste nt asthma without complication Inhale 1 puff in the morning and 1 puff before bedtime. 60 each 11 02/19/2025 02/20/2025 DiscontinuedFluticasone Furoate-Vilanterol (16 sources)Corticosteroid, beta2-Adrenergic AgonistStart: 88-09-5555Xtqpx: 39-18-7315Ztvmlggykab Furoate-Vilanterol (Breo Ellipta) 200-25 mcg/dose blister with device Active 1 INH INHALATION Daily April 16, 2025 12:00am Complies with drug therapyStart: 40-66-7548Bhanvfvlxst Furoate-Vilanterol (Breo Ellipta) 200- 25 mcg/dose blister with device Active 1 INH INHALATION Daily April 16, 2025 12:00amStart: 68-09-7665hsda 1 puff(s) by inhalation in the morningfluticasone furoate-vilanteroL (BREO ELLIPTA) 200-25 mcg/dose blister with device Indications: Moderate persistent asthma without complication Inhale 1 puff in the morning. 60 each 6 02/20/2025 ActiveFluticasone Furoate-Vilanterol (Breo Ellipta) 200-25 MCG/ACT aerosol powder Inhale Activegabapentin 300 mg oral capsule (20 sources)Anti-epileptic AgentStart: 41-66-1753whgk 1 capsule by mouth three times dailyGabapentin 300 mg capsule Active 300 MG PO Three times daily April 16, 2025 12:00am Complies with drug therapyStart: 08-23-2022 End: 75-63-4083aqtw 1 capsule by mouth three times dailygabapentin (NEURONTIN) 300 mg capsule Indications: Meningioma (CMS-HCC) Take 1 capsule (300 mg total) by mouth 3 (three) times a day. 90 capsule 3 08/23/2022 Activetake 1 capsule by mouth every twelve hoursgabapentin (Neurontin) 300 MG capsule 1 capsule every 12 (twelve) hours ActivehydroCHLOROthiazide 12.5 mg oral capsule (10 sources)Thiazide DiureticStart: 01-29-2025 End: 75-33-5666tihp 1 capsule by mouth in the morninghydroCHLOROthiazide (MICROZIDE) 12.5 mg capsule Take 1 capsule (12.5 mg) by mouth in the morning. 01/29/2026 Activetake 1 tablet by mouth once dailyhydroCHLOROthiazide (HYDRODiuril) 12.5 MG tablet Take 12.5 mg by mouth Daily Hdbnvf98 hr isosorbide mononitrate 30 mg extended release oral tablet (17 sources)Nitrate Vasodilator End: 84-70-4653waefhnfqsc mononitrate ER (Imdur) 30 MG 24 hr tablet 1 (one) time each day at the same time Activeletrozole 2.5 mg oral tablet (14 sources)Aromatase InhibitorStart: 17-38-6258gkgs 1 tablet by mouth once dailyLetrozole 2.5 mg tablet Active 2.5 MG PO Daily April 16, 2025 12:00am Complies with drug therapylisinopril 10 mg oral tablet (20 sources)Angiotensin Converting Enzyme InhibitorStart: 97-24-4074voar 1 tablet by mouth once dailyLisinopril 10 [...] oral tablet (3 sources)Nonsteroidal Anti-inflammatory Drug End: 30-44-1129zehj 1 tablet by mouth in the morningmeloxicam (MOBIC) 15 mg tablet Take 1 tablet (15 mg total) by mouth in the morning. 12/11/2024 Disco ntinued (Therapy completed)24 hr metoprolol succinate 25 mg extended release oral tablet (20 sources)beta-Adrenergic BlockerStart: 64-51-4556grfr 1 tablet by mouth once dailyMetoprolol Succinate 25 mg tablet extended release 24 hr Active 25 MG PO Daily April 16, 2025 12:00am Complies with drug therapymetoprolol succinate XL (Toprol-XL) 25 MG 24 hr tablet metoprolol succinate ER 25 mg tablet,extended release 24 hr Activemontelukast 10 mg oral tablet (17 sources)Leukotriene Receptor AntagonistStart: 26-11-0446ufjz 1 tablet by mouth once daily at [...] capsule (20 sources)Proton Pump InhibitorStart: 12-11-2024 End: 74-94-0122vlal 1 capsule by mouth at bedtimeomeprazole (PriLOSEC) 20 mg capsule TAKE 1 CAPSULE(20 MG) BY MOUTH IN THE MORNING AND AT BEDTIME 180 capsule 3 12/11/2024 Activepantoprazole 40 mg delayed release oral tablet (7 sources)Proton Pump InhibitorStart: 77-89-3119tydv 1 tablet by mouth once dailyPantoprazole 40 mg tablet,delayed release (DR/EC) Active 40 MG PO Daily April 16, 2025 12:00am Complies with drug therapyprochlorperazine 10 mg oral tablet (12 sources)PhenothiazineStart: 12-65-2764trsn 1 tablet by mouth every eight hours as needed for nausea and vomitingProchlorperazine Maleate (Compazine) 10 mg tablet Active 10 MG PO Every 8 hours as needed for nausea and vomiting April 16, 2025 12:00am Complies with drug therapy Completed/Discontinued Medications MedicationDrug Class(es)DatesSig (Normalized)Sig (Original)acetaminophen 325 mg oral capsule (20 sources)Start: 04-16-2025 End: 10-70-8877uayu 1 capsule by mouth every six hours [...] tablet (20 sources)Histamine-1 Receptor AntagonistStart: 04-16-2025 End: 86-80-3682cxey 1 tablet by mouth once daily at bedtime as needed Diphenhydramine-Acetaminophen (Acetaminophen Pm Extra Str) 25-500 mg tablet Discontinued 1 TAB PO Daily at bedtime as needed June 04, 2025 12:00am June 22, 2025 1:26pmaspirin 81 mg oral tablet (18 sources)Platelet Aggregation Inhibitor, Nonsteroidal Anti-inflammatory Drug Start: 04-16-2025 End: 82-66-7028xdyb 1 tablet by mouth once dailyAspirin 81 mg tablet Discontinued 81 MG PO Daily April 16, 2025 12:00am June 22, 2025 1:25pm aspirin 81 mg chewable tablet Chew 1 tablet (81 mg total) and swallow in the morning. prevention. Activebenzonatate 100 mg oral capsule (12 sources)Non-narcotic AntitussiveStart: 04-16-2025 End: 47-01-0004vjgq 1 capsule by mouth twice daily as neededBenzonatate 100 mg capsule Discontinued 100 MG PO Twice daily as needed April 16, 2025 12:00am June 22, 2025 1:26pm5 ml bupivacaine hydrochloride 5 mg/ml injection (8 sources)Amide Local AnestheticStart: 09-23-2025 End: 73-77-9578jbosvvqlbry PF (Marcaine) 0.5 % injection 1 mLStart: 09-23-2025 End: mL, Injection, Once PRN Procedure, Starting on Sun09/23/25 at 0910, For 1 doseStart: 09-02-2025 End: 56-13-7252abdjuzibfdi PF (Marcaine) 0.5 % injection 2 mLStart: 09-02-2025 End: mL, Injection, Once PRN Procedure, Starting on Sun09/02/25 at 1023, For 1 doseibuprofen 200 mg oral tablet (7 sources)Nonsteroidal Anti-inflammatory DrugStart: 04-16-2025 End: 00-77-2592gvtb 1 tablet by mouth onceIbuprofen 200 mg tablet Discontinued 200 MG PO Once April 16, 2025 12:00am April 16, 2025 3:01pm1 ml methylPREDNISolone acetate 40 mg/ml injection (16 sources)CorticosteroidStart: 09-23-2025 End: 41-74-0737bpcqjmKREXKUAbpqsu acetate (DEPO-Medrol) injection 40 mgStart: 09-23-2025 End: 44-90-288689 mg, Intra-articular, Once PRN Procedure, Starting on Sun09/23/25 at 0910, For 1 doseStart: 09-02-2025 End: 79-14-7409zxcehpYKZORWSygjdq acetate (DEPO-Medrol) injection 40 mgStart: 09-02-2025 End: 65-45-010419 mg, Intra-articular, Once PRN Procedure, Starting on Sun09/02/25 at 1023, For 1 doseStart: 02-06-2025 End: 99-13-7423maxgaoCHAVDCZqmvuh acetate (DEPO-Medrol) injection 40 mgStart: 02-06-2025 End: 34-14-249809 mg, Intra-articular, Once PRN Procedure, Starting on Sun02/06/25 at 1320, For 1 doseStart: 08-27-2024 End: 38-90-6425ezwdbfHMSWLAMegbzy acetate (DEPO-Medrol) injection 40 mgStart: 08-27-2024 End: 08-30-127263 mg, Intra-articular, Once PRN Procedure, Starting on Sun08/27/24 at 1221, For 1 doseondansetron 4 mg disintegrating oral tablet (12 sources)Serotonin-3 Receptor AntagonistStart: 04-16-2025 End: 23-14-9265kcmt 1 tablet by mouth every eight hours as neededOndansetron 4 mg tablet,disintegrating Discontinued 4 MG PO Every 8 hours as needed April 16, 2025 12:00am June 22, 2025 1:27pmpalbociclib 100 mg oral capsule (14 sources)Kinase InhibitorStart: 04-16-2025 End: 26-39-4997Pqvutskamwa (Ibrance) 100 mg capsule Discontinued 100 MG PO Daily April 16, 2025 12:00am April 16, 2025 3:02pm administer on days 1 through 21 of a 28-day treatment cycle End: 10-47-6528coyp 1 capsule by mouth once daily at mealtimepalbociclib (Ibrance) 125 MG chemo capsule Take 125 mg by mouth Daily with meals. Swallow whole. 09/02/2025 Discontinued (Therapy completed)predniSONE 5 mg oral tablet (3 sources) End: 84-26-0317levn 1 tablet by mouth in the morningpredniSONE (DELTASONE) 5 mg tablet Take 1 tablet (5 mg total) by mouth in the morning. 02/19/2025 Di scontinuedsucralfate 1000 mg oral tablet (12 sources)Aluminum ComplexStart: 04-16-2025 End: 11-57-8954vflg 1 tablet by mouth twice dailySucralfate (Carafate) 1 gram tablet Discontinued 1 GM PO Twice daily April 16, 2025 12:00am June 22, 2025 1:31pmUNABLE TO FIND (7 sources) End: 20-66-2151uzut 1000 mg by mouth in the morningUNABLE [...] persistent asthma; Translations: [Moderate persistent asthma, uncomplicated]Onset: 857513-98-7641OvahgkwMcwfjy of breast (16 sources)Malignant tumor of breast ; Translations: [Malignant neoplasm of unspecified site of unspecified female breast]79-99-6634EgoqagjAvsbpwk kidney disease (18 sources)Chronic kidney disease stage 3; Translations: [Stage 3 chronic kidney disease]55-25-2630GbjwoqrTdarrekr atherosclerosis and other heart disease (5 sources)Atherosclerotic heart disease of [place] coronary artery with unstable angina pectoris; Translations: [Unstable angina]Onset: 08-02-9641Kaaqpvr Deficiency and other anemia (15 sources)Anemia of chronic disease; Translations: [Anemia in other chronic diseases classified elsewhere]60-07-4110LnjwvkiRvdfqyhixs and other anemia (1 source)Anemia in other chronic diseases classified elsewhere; Translations: [Anemia of other chronic disease]23-95-5476AdyossuLucuzocrsq and other anemia (1 source)Anemia, unspecified; Translations: [Anemia, unspecified]Onset: 85-30-4971GhablmbjNtgxnflxf of lipid metabolism (20 sources)Hyperlipidemia; Translations: [Hyperlipidemia, unspecified]Onset: 643395-72-4730SxihtcdHxvudufytdimrj and diverticulitis (13 sources)Diverticulosis of large intestine; Translations: [Diverticulosis of large intestine without perforation or abscess without bleeding]Onset: 995645-50-5909CifxxhpDceqcokohp disorders (11 sources)Gastroesophageal reflux disease without esophagitis; Translations: [Gastro-esophageal reflux disease without esophagitis]Onset: 12-11-2024 75-65-8646GrqgvtxOohnskebf hypertension (2 sources)Essential (primary) hypertension; Translations: [Essential (primary) hypertension]Onset: 62-89-6420HvqsjstFqcqxqtcviicdtqe hemorrhage (1 source)Melena; Translations: [Melena]Onset: 11-55-4633PhjfaickHfvmtcqq; including migraine (1 source)Headache; including migraineOnset: 23-80-8994Jkkkutolipyw with complications and secondary hypertension (18 sources)Chronic kidney disease due to hypertension; Translations: [Hypertensive chronic kidney disease withstage 1 through stage 4 chronic kidney disease, or unspecified chronic kidney disease]99-78-4999McpyrzmHuyzacm and fatigue (1 source)FatigueOnset: 57-69-3031XjxsuxzrWhfunpvdlsjzza (20 sources)Primary osteoarthritis, right ankle and foot; Translations: [Osteoarthritis of right knee joint]Onset: 78-53-7777NhdlixrAvyry and unspecified benign neoplasm (13 sources)Neoplasm of meninges; 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, unspecified]Onset: 005419-07-4258MqdyhcyNobum connective tissue disease (5 sources)Pain in right foot; Translations: [PAIN IN RIGHT FOOT]Onset: 47-47-8333KsmzkfgaXwkot connective tissue disease (5 sources)Other muscle spasm; Translations: [OTHER MUSCLE SPASM]Onset: 45-28-8728LhlltaeyEtcoi connective tissue disease (1 source)Pain in right leg; Translations: [PAIN IN RIGHT LEG]Onset: 03-31-2022 EpisodicOther connective tissue disease (5 sources)Pain in left leg; Translations: [PAIN IN LEFT LEG]Onset: 02-16-2022 EpisodicOther connective tissue disease (6 sources)Trochanteric bursitis of left hip; Translations: [Trochanteric bursitis, left hip]81-96-0415TvfyejcyYyszy injuries and conditions due to external causes (2 sources)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; Translations: [Unspecified injury of head, initial encounter]65-16-5195FspofrnyGuwhx injuries and conditions due to external causes (1 source)Unspecified injury of head, initial encounter; Translations: [Unspecified injury of head, initial encounter]Onset: 03-36-5451DqhoydgeQlvao lower respiratory disease (15 sources)Multiple nodules of lung; Translations: [Other nonspecific abnormal finding of lung field]Onset: 251161-83-5963LewgdgepOgnxc lower respiratory disease (2 sources)Nodule of lung; Translations: [Solitary pulmonary nodule]12-11-2024 EpisodicOther lower respiratory disease (1 source)Dyspnea; Translations: [Shortness of breath]24-49-0042QppvuynaFefwx lower respiratory disease (2 sources)CoughOnset: 20-17-8652AxkfnkosGbkio lower respiratory disease (1 source)Shortness of breathOnset: 59-21-7659VihyjcsoVfhhb lower respiratory disease (1 source)WheezingOnset: 46-99-7821YtvhkbchRojpp nervous system disorders (1 source)Other specified mononeuropathies; Translations: [OTHER SPECIFIED MONONEUROPATHIES]Onset: 25-47-6603YlditcuObiba nervous system disorders (1 source)Polyneuropathy, unspecified; Translations: [POLYNEUROPATHY UNSPECIFIED]Onset: 75-51-1691ZxyxqasLzfzj nervous system disorders (2 sources)Neuropathy; Translations: [Polyneuropathy, unspecified]11-09-2023 ChronicOther non-traumatic joint disorders (4 sources)Arthritis of right lrpg31-43-9072VsyppnnTbqip non-traumatic joint disorders (5 sources)Pain in right ankle and joints of right foot; Translations: [PAIN IN RIGHT ANKLE]Onset: 41-10-7396QrtvyswpMcnjr non-traumatic joint disorders (6 sources)Pain in right knee; Translations: [Pain in joint, lower leg] 07-39-9572AqktkxzzVeutc non-traumatic joint disorders (4 sources)Hip pain; Translations: [Pain in left hip]52-90-5541UiodlwxuVweaa nutritional; endocrine; and metabolic disorders (1 source)Hypomagnesemia; Translations: [Hypomagnesemia]Onset: 59-51-4196Gzgwkvq Residual codes; unclassified (1 source)Other specified postprocedural states; Translations: [OTH SPECIFIED POSTPROCEDURAL STATES]Onset: 11-55-2870PjziqejzNsgrdcilldit (1 source)New PatientOnset: 44-02-9589Mjfddzxtcmmi (1 source)Lung NoduleOnset: 34-93-7925Pxmgzihrxrif (2 sources)Animal BiteOnset: 05-24-2025 Past or Other Problems Problem ClassificationProblemDateDocumented DateEpisodic/ChronicAcute and unspecified renal failure (19 sources)Acute renal failure syndrome; Translations: [Acute kidney failure, unspecified]Onset: 678941-87-2681ObugxhydZoaqbo of breast (11 sources)History of malignant neoplasm of breast; Translations: [Personal history of malignant neoplasm of breast]Onset: 427528-44-1960HybreybrN Codes: Natural/environment (1 source)Bitten by cat, initial encounter; Translations: [Bitten by cat, initial encounter]Onset: 76-26-6268SxfhozekHokwp and electrolyte disorders (1 source)Hypo-osmolality and hyponatremia; Translations: [Hypo-osmolality and hyponatremia]Onset: 50-77-9882GyjtswquQtec disorders (13 sources)Mood disordersOnset: 551785-59-4445Fabwofnifib chest pain (5 sources)Other chest pain; Translations: [Chest pain, unspecified]Onset: 17-03-4958SnaijsktMptpl connective tissue disease (4 sources)Pain in right lower leg; Translations: [PAIN IN RIGHT LOWER LEG] Onset: 51-26-1862HlanqcmqZksme connective tissue disease (1 source)Pain in left lower leg; Translations: [PAIN IN LEFT LOWER LEG]Onset: 74-76-8742TnjbpposQaaca connective tissue disease (1 source)Pain in left foot; Translations: [PAIN IN LEFT FOOT]Onset: 03-03-2022 EpisodicOther gastrointestinal disorders (13 sources)Dark stools; Translations: [Other fecal abnormalities]Onset: 383539-70-5106VlpzzojmBvtlg lower respiratory disease (2 sources)Solitary pulmonary nodule; Translations: [Solitary pulmonary nodule] Onset: 39-07-6635ZicwezfjAymok lower respiratory disease (3 sources)Shortness of breath; Translations: [Shortness of breath]Onset: 45-15-3131TfcqqgqiMavuo lower respiratory disease (2 sources)Other nonspecific abnormal finding of lung field; Translations: [Other nonspecific abnormal findingof lung field]Onset: 87-54-2450SejfewmsVdewo lower respiratory disease (6 sources)Dyspnea on exertion; Translations: [Other forms of dyspnea]Onset: 931070-61-4077EboxzgwkAggrj lower respiratory disease (3 sources)Other forms of dyspnea; Translations: [Other forms of dyspnea]Onset: 41-03-3545DeiziidlDyvqs lower respiratory disease (1 source)Wheezing; Translations: [Wheezing]Onset: 91-51-0663FhnejqhxOflnt non- traumatic joint disorders (5 sources)Pain in left ankle and joints of left foot; Translations: [PAIN IN LEFT ANKLE]Onset: 44-18-7751BjcxcaclMclar screening for suspected conditions (not mental disorders or infectious disease) (13 sources)History of adenomatous polyp of colon; Translations: [Encounter for screening for malignant neoplasm of colon]Onset: 383705-62-4020Flthebqg Residual codes; unclassified (1 source)Pain, unspecified; Translations: [Pain, unspecified]Onset: 12-02-2024 EpisodicUnclassified (13 sources)Onset: 135610-14-7370 Results Test NameValueInterpretationReference RangeFaunitypoint health-saint [facility]uke's hospitalNo Panel Informationon 34-50-3405GhqrhjoLOLA Dickey 09/23/2025 12:27 PM L Inj/Asp: R [...] and draped in the usual sterile fashion. [facility] Panel Informationon 17-02-8698XkrblbxLOLA Dickey 09/02/2025 12:59 PM L Inj/Asp: L [...] and draped in the usual sterile fashion. [facility] - [facility] 3 Viewson 28-13-1204Mgrtqjb Result: AP and Lateral weight bearing left [...] Impression: No acute bony process left hip. [facility] HospitalRadiology Study observation (narrative)[facility] CampusPath[facility] Request for Lab Corpon 45-12-4607Ggcljpamm Request for Lab [facility] Physician GroupComment on above:Order Comment: GI SPECIMENResult Comment: See report. Scanned copy available in EMR. PERFORMED BY: [address] [place] [address] PATHOLOGIST LCSW LESLEY WHITMORE M.D.Performed By: #### PATH TO [facility] #### [place] [id number] USACT head/brain wo [facility] 76-91-4475CL head/brain wo [facility] [place] [address] [place] [address] CT Scan Report Signed Patient: Margy Oakes MR#: [id number] 31 : 1945 Acct:[id number] Age/Sex: 80 / F ADM Date: 07/01/25 Loc: ER Room: Type: [facility] ER Attending Dr: Copies to: Calvin Parekh [...] Correa M.D. 07/01/2025 2:55 PM Dictation Location: [place] [address] Transcribed By: [facility] 07/01/251454 Dictated By: Marco Correa MD 07/01/251452 Signed By: 07/01/25 1455NormHCA [facility] Physician GroupUrine Cultureon 06-16-2025 Bacteria identified Cx Nom (U)<9,000 colonies/ml mixed bacterial skin contaminants 2 Days PERFORMED BY: [place] [address] PATHOLOGIST LCSW LESLEY WHITMORE M.D.NormalThe [facility] Physician GroupComment on above: Performed By: #### [facility] #### [place] [address] USAUrine cultureOrdered By: Natasha Vazquez on 06-16-2025 Bacteria identified Cx Nom (U)2 DaysSt. Mary'S [facility] CampusOffice Visiton [id number]-up [id number] Margy Oakes 1945 F Date Provider Department Center 06/10/2025 KIMMY WOODRUFF Myranda Warner Family History Problem Relation Age of Onset Cancer Mother Cancer Father Cancer Brother Family Status - Relation Status Age at Mother Father Brother Level of Service:81254 [place] OFFICE/OUTPATIENT ESTABLISHED MOD MDM 30 MIN Reason for Visit and Comments: 3 month follow up with labs [Other] Coronary Artery Disease [187] Hypertension [187330] Hyperlipidemia [182] [facility] [Other]NormalMercy Health Perrysburg HospitalB-TYPE NATRIURETIC PEPTIDEon 78-84-5982Xrxricceiww peptide B (Bld) [Mass/Vol]151 pg/mLHigh<=100ProMed[facility] [address] John'S Health CenterComment on above: Performed By: #### CBCA, 1744-2, 1920-8, BMP, 97746-4 #### [facility] ([id number]) [address] [place] [address], [address] [place], [place] [address]PAZ WITH AUTO DIFFERENTIALon 29-92-8443JGUOVZQSL ABSOLUTE COUNT (10*3/UL) BY AUTOMATED COUNT0.0 10*3/uLNormal0.0-0.2PKing's Daughters Medical [facility] [place] Comment on above:Performed By: #### CBCA #### [facility] ([facility]) [address] [place] [address] [place] [address] VIRBASOPHILS RELATIVE PERCENT BY AUTOMATED COUNT0.3 %Normal [facility] CenterComment on above:Performed By: #### CBCA #### [facility] ([facility]) [address] [place] [address] VIRCELLAVISION DIFFERENTIAL TYPEAUTOMATED DIFFERENTIALNormal [facility] CenterComment on above:Performed By: #### CBCA #### [facility] ([facility]) [address] [place] [address]. [place] [address] VIREosinophils (Bld) [#/Vol]0.0 10*3/uLNormal0.0-0.4[facility] Medical CenterComment on above:Performed By: #### CBCA #### [facility] ([address] [address] VIREOSINOPHILS RELATIVE PERCENT BY AUTOMATED COUNT0.0 %Normal [facility] Medical CenterComment on above:Performed By: #### CBCA #### [facility] ([address] [place] [address] VIRErythrocyte distribution width (RBC) [Ratio]16.4 %High 11.5-15[facility] Medical CenterComment on above:Performed By: #### CBCA #### [facility] ([address] [address] VIRHematocrit (Bld) [Volume fraction]30.6 %Sli08-54WugBlpiyfMetroHealth Main Campus Medical CenterComment on above:Performed By: #### CBCA #### [facility] ([address] [address] VIRHemoglobin (Bld) [Mass/Vol]10.4 g/dLLow11.7-15.5PKing's Daughters Medical Center OhioComment on above:Performed By: #### CBCA #### [facility] ([address] [address] VIRLYMPHOCYTES ABSOLUTE COUNT (10*3/UL) BY AUTOMATED COUNT1.1 10*3/uLNormal1.0-3.5PKing's Daughters Medical Center OhioComment on above:Performed By: #### CBCA #### [facility] ([address] [address] VIRLYMPHOCYTES RELATIVE PERCENT BY AUTOMATED COUNT15.4 %Normal [facility] Medical CenterComment on above:Performed By: #### CBCA #### [facility] ([address] [address] VIRMCH (RBC) [Entitic mass]34.8 wkElzc29-28WlbFnaquqMetroHealth Main Campus Medical CenterComment on above:Performed By: #### CBCA #### [facility] ([address] [place] [address] VIRMCHC (RBC) [Mass/Vol]34.0 g/hZXuwsoc32-77GseFunkxiMemorial Hermann Northeast HospitalComment on above:Performed By: #### CBCA #### [facility] ([address] [place] [address] VIRMCV (RBC) [Entitic vol]102 gQNhsr47-074DzuZeabqbMemorial Hermann Northeast HospitalComment on above:Performed By: #### CBCA #### [facility] ([address] [place] [address] VIRMONOCYTES ABSOLUTE COUNT (10*3/UL) BY AUTOMATED COUNT0.2 10*3/uLNormal0.0-0.9[facility] Medical CenterComment on above:Performed By: #### CBCA #### [facility] ([address] [place] [address] VIRMONOCYTES RELATIVE PERCENT BY AUTOMATED COUNT3.4 %Normal [facility] Medical CenterComment on above:Performed By: #### CBCA #### [facility] ([address] [place] [address] VIRNEUTROPHILS ABSOLUTE COUNT BY AUTOMATED COUNT5.6 10*3/uL Normal1.5-6.6[facility] Medical CenterComment on above:Performed By: #### CBCA #### [facility] ([address] [place] [address] VIRNEUTROPHILS RELATIVE PERCENT BY AUTOMATED COUNT80.9 %Normal [facility] Medical CenterComment on above:Performed By: #### CBCA #### [facility] ([address] [place] [address] VIRPlatelet mean volume (Bld) [Entitic vol]8.0 fLNormal7-12 [facility] Medical CenterComment on above:Performed By: #### CBCA #### [facility] ([facility]) [address] [place], [place] [address] [address] VIRPlatelets (Bld) [#/Vol]322 10*3/wMGtjdgr894-536DrwHarlrh Fremont HospitalComment on above:Performed By: #### CBCA #### [facility] ([facility]) [address] [place] [address] [place] [address] VIRRBC COUNT2.99 X10E12/LLow3.8-5.2PKing's Daughters Medical [facility] [place] Comment on above:Performed By: #### CBCA #### [facility] ([facility]) [address] [place] [address]. [place] [address] VIRWBC (Bld) [#/Vol]6.9 10*3/uLNormal4-11ProMemorial Hermann Northeast HospitalComment on above:Performed By: #### CBCA #### [facility] ([facility]) [address] [place], [place] [address]. [place] [address] VIRCOMPREHENSIVE METABOLIC PANELon 73-24-3130Lzihxgw [Mass/Vol]4.1 g/dLNormal3.2-5.3PKing's Daughters Medical Center OhioComment on above: Performed By: #### CMP #### [facility] ([facility]) [address] [place] [address] [place] [address] VIRALP [Catalytic activity/Vol]72 U/URmjehg12-383EanKuwunlMemorial Hermann Northeast HospitalComment on above:Performed By: #### CMP #### [facility] ([facility]) [address] [place] [address] [place] [address] VIRALT [Catalytic activity/Vol]17 U/LNormal<=31PKing's Daughters Medical Center OhioComment on above:Result Comment: R-Specimen hemolyzed, results increasedPerformed By: #### CMP #### [facility] ([place] [address] [place] [address] VIRAnion gap [Moles/Vol]8 mmol/LNormal5-15ProMemorial Hermann Northeast HospitalComment on above:Performed By: #### CMP #### [facility] ([facility]) [facility] [address] [place] [address] VIRAST [Catalytic activity/Vol]34 U/LNormal<=41ProMemorial Hermann Northeast HospitalComment on above:Result Comment: R-Specimen hemolyzed, results increasedPerformed By: #### CMP #### [facility] ([address] [place] [address] VIRBilirubin [Mass/Vol]1.3 mg/dLHigh0.3-1.2PKing's Daughters Medical Center OhioComment on above:Result Comment: R-Results questionable due to hemolysis Performed By: #### CMP #### [facility] ([address] [place] [address] VIRCalcium [Mass/Vol]8.9 mg/dLNormal8.5-10.5PKing's Daughters Medical Center OhioComment on above:Performed By: #### CMP #### [facility] ([address] [place] [address] VIRChloride [Moles/Vol]95 mmol/EXpn41-968RtrNbmmwsMemorial Hermann Northeast HospitalComment on above:Performed By: #### CMP #### [facility] ([address] [place] [place] [address] VIRCO2 [Moles/Vol]24 mmol/LFvjbqr26-75RntGamwdzKing's Daughters Medical Center OhioComment on above:Performed By: #### CMP #### [facility] ([facility]) [address] [place], [place] [address] [place] [place] [address] VIRCreatinine [Mass/Vol]1.74 mg/dLHigh0.40-1.00ProMemorial Hermann Northeast HospitalComment on above:Result Comment: METHOD TRACEABLE TO IDMS STANDARDPerformed By: #### CMP #### [facility] ([address] [place] [address] VIRGFR/1.73 sq M.predicted among non-blacks MDRD (S/P/Bld) [Vol rate/Area]29 mL/min/{1.73_m2}Low>=60ProMemorial Hermann Northeast HospitalComment on above:Result Comment: Reported eGFR is based on the CKD-EPI 2020 equation that does not use a race coefficient.Performed By: #### CMP #### [facility] ([address] [address] VIRGlucose [Mass/Vol]161 mg/oXBrwg98-61XvhWrxkfrMemorial Hermann Northeast HospitalComment on above:Performed By: #### CMP #### [address] [address] VIRPotassium [Moles/Vol]4.6 mmol/LNormal3.5-5.0ProMemorial Hermann Northeast HospitalComment on above:Result Comment: R-Specimen hemolyzed, results increasedPerformed By: #### CMP #### [facility] ([address] [address] VIRProtein [Mass/Vol]7.5 g/dLNormal6.0-8.0[facility] Medical CenterComment on above:Result Comment: R-Specimen hemolyzed, results increased Performed By: #### CMP #### [facility] ([address] [address] VIRSodium [Moles/Vol]127 mmol/ZVqy914-537YabSsmoroMemorial Hermann Northeast HospitalComment on above:Performed By: #### CMP #### [facility] ([address] [address] VIRUrea nitrogen [Mass/Vol]27 mg/dLNormal5-27ProMemorial Hermann Northeast HospitalComment on above:Performed By: #### CMP #### [facility] ([address] [place] [address] VIRD-DIMERon 05-29-2025D PDYBG709 ug/mLHigh1-255ProMemorial Hermann Northeast HospitalComment on above:Result Comment: Results >255 ng/mL DDU: Results may be indicative of the presence of VTE. The use of the Wells score and further diagnostic tests should be considered. Elevated D-Dimer levels can be associated with DIC, neoplasm, , trauma and liver disease. Elevated levels of rheumatoidfactor may lead to an overestimation of the D-Dimer level. Performed By: #### DDMR #### [facility] ([address] [place] [address] VIRMAGNESIUMon 46-29-6205Nysezskgx [Mass/Vol]1.6 mg/dLLow 1.8-2.6ProMemorial Hermann Northeast HospitalComment on above:Result Comment: R-Specimen hemolyzed, results increasedPerformed By: #### MG #### [facility] ([address] [place] [address] VIRTROP I, HIGH SENSITIVITY 1 HOURon 67-05-7892EPTKPQMB I, HIGH SENSITIVITY5 ng/LNormal<16ProMemorial Hermann Northeast HospitalComment on above: Performed By: #### CBCA, 1744-2, 1920-06, BMP, 02406-7 #### [facility] ([id number]) [address], [address] [place], [place] [address]NNIFRXCG I, HIGH SENSITIVITY 0 HOURon 91-39-1946JVPWAZFP I, HIGH SENSITIVITY5 ng/LNormal<16ProMemorial Hermann Northeast HospitalComment on above:Performed By: #### CBCA, 1744-2, 0-8, BMP, 83646-7 #### [facility] ([id number]) [address], [address] [place], [place] [address]RZ CHEST 2 VWSon 45-81-9292LV CHEST 2 VWSXR CHEST 2 VWS XR [...] by Ramses Khan MD on 05/29/2025 1:41 AMNormalProOhiohealth Marion General Hospitalca [address] [facility]'S Health CenterCentriole Ab [Titer] in Serum by Immunofluorescenceon 04-16-2025 Centriole Ab IF (S) [Titer]TNP.[facility] CampusCentromere Ab [Titer] in Serum by Immunofluorescenceon 95-43-3992Ruarqaptck Ab IF (S) [Titer] TNP.[facility] CampusEstimated glomerular filtration rate (GFR) non- Americanon 20-75-4403OUE/1.73 sq M.predicted among non-blacks MDRD (S/P/Bld) [Vol rate/Area]Estimated glomerular filtration rate (GFR) non- AmericanLow>=60 mL/min/1.73m 2FOhioHealth Hardin Memorial HospitalGFR/1.73 sq M.predicted among non-blacks MDRD (S/P/Bld) [Vol rate/Area]26 mL/min/{1.73_m2} Low>=60 mL/min/1.73m 2FOhioHealth Hardin Memorial HospitalLaboratory - Chemistry and Chemistry - challengeon 87-25-3475Smsseub [Mass/Vol]3.1 g/dLLow3.4-5.0 [facility] CampusCalcium [Mass/Vol]9.4 mg/dL8.5-10.1FOhioHealth Hardin Memorial HospitalChloride [Moles/Vol]99 mmol/V08-853EtiynqmdbSt. Mary'S Medical Center, [place]ont[place] CampusCO2 [Moles/Vol]26.2 mmol/L21.0-32.0[facility] CampusCreatinine [Mass/Vol]1.84 mg/dLHigh0.55-1.02[facility] CampusGFR/1.73 sq M.predicted MDRD (S/P/Bld) [Vol rate/Area]32 mL/min/{1.73_m2} Low>=60 mL/min/1.73m 2FOhioHealth Hardin Memorial HospitalGlucose [Mass/Vol]97 mg/iL63-010PknsbodkdSt. Mary'S Medical Center, [place] CampusPotassium [Moles/Vol]4.8 mmol/L 3.5-5.1FKettering Health – Soin Medical Centerodium [Moles/Vol]133 mmol/FHji723-329 [facility] CampusUrea nitrogen [Mass/Vol]21.0 mg/dLHigh7.0-18.0 [facility] CampusUrea nitrogen/Creatinine [Mass ratio]11.4 mg/mg [facility] CampusBilirubin Ql (U)NegativeNEGMadison HealthGlucose (U) [Mass/Vol]NegativeNEGMadison HealthKetones Ql (U)NegativeNEGMadison HealthpH (U)6.0 [pH]5.0-9.0[facility] Medical Centerpecific gravity (U) [Rel density]<=1.314Bkpwqgpx8.005-1.025[facility] CampusUrobilinogen Qn (U)0.2 {Maegan'U}/dL0.2-1.0[facility] CampusLaboratory - Specimen informationon 79-60-2288Ipamfgfiwq (U)CLEARCLEARFOhioHealth Hardin Memorial HospitalColor (U)LT. YELLOWYELLOWSt. Mary'S [facility], [place] Campus Laboratory - Urinalysison 33-24-3051Giyxkxa casts LM Ql (Urine sed)RARESt. Mary'S Medical Center, [place] CampusLeukocyte esterase Test strip Ql (U)SMALLAbnormalNEGATIVE St[facility] CampusMucus Ql (Urine sed)NONE SEENNONE SEENSt. Mary'S Medical Center, [place] CampusNitrite Ql (U)NegativeNEGMadison HealthProtein (U) [Mass/Vol]9.4 mg/dL<=11.9[facility] Protein Ql (U)NegativeNEG/TRACESt. Mary'S Medical Center, [place] CampusMidbody Ab [Titer] in Serum by Immunofluorescenceon 40-99-6511Nseaedk Ab IF (S) [Titer]TNP. [facility] CampusMitotic spindle apparatus Ab [Titer] in Serum or Plasma by Immunofluorescenceon 14-97-1381Sqiuwtr spindle apparatus Ab IF [Titer]TNP.[facility] CampusMyeloperoxidase Ab [Units/volume] in Serum by Immunoassayon 56-75-6744Teixohmoaivfbnk Ab IA Qn (S)<0.2 units0.0-0.9 [facility] CampusNo Panel Informationon 00-29-1441Roea-Nuclear Antibody Comment 2Comment.[facility]ont[facility] CampusComment on above: Pattern Potential Disease Association Homogeneous Systemic Lupus Erythematosus, Drug Induced Systemic Lupus Erythematosus, Chronic Autoimmune hepatitis, Juvenile Idiopathic Arthritis Speckled Sjogren Syndrome, Systemic Lupus Erythematosus, Subacute Cutaneous Lupus, Lupus, Congenital Heart Block, Mixed Connective Tissue Disease, Scleroderma-diffuse, Scleroderma- Autoimmune Myositis Overlap Syndrome, Systemic Lupus Smvjjgtjqirif-Uvzkferqooi-Homlpbrmzb Myositis Overlap Syndrome, Systemic Autoimmune Rheumatic Disease, [...] Cytopenias, Linear Scleroderma, Antiphospholipid Syndrome Performed at: [address] [id number] Director: Yaw Shelby PhD, Phone: [phone] p-ANCA<1:20 titerNeg:<1:20[facility] CampusComment on above:The atypical pANCA pattern has been observed in asignificant percentage of patients with ulcerativecolitis,primary sclerosing cholangitis and autoimmune hepatitis.Performed at: [address] [id number] Director: Clint Stoner MD, Phone: [phone] at: [address] [id number] Director: Yaw Shelby PhD, Phone: [phone] ANCA (p-ANCA) Antibody<1:20 titerNeg:<1:20[facility] Comment on above:The presence of positive fluorescence exhibiting P-ANCA orC- ANCA patterns alone is not specific forthe diagnosis ofWegener's Granulomatosis (WG) or microscopic polyangiitis.Decisions about treatmentshould not be based solely onANCA IFA results. The International ANCA Group Consensusrecommends foll ow up testing of positive sera with both VT-3 and MPO-ANCA enzyme immunoassays. As many as 5% serumsamples are positive only by EIA. Ref. AM J Clin Lxzpdv5067;111:507-513.Phosphorus Level4.0 mg/dL2.6-4.7FOhioHealth Hardin Memorial HospitalUrine BacteriaTRACE #/HPFAbnormalNONE [facility] HospitalUrine Culture ReflexedYES-FRMcCullough-Hyde Memorial Hospital Urine Occult BloodNegativeNEGATIVESt. Mary'S Medical Center, [facility] CampusUrine Other CastsSEEN #/LPFAbnormalNONE [facility] HospitalUrine Other CrystalsNone Seen #/HPFNone [facility] HospitalUrine Random Gnbjbrhwhe00.09 mg/dL20.00-300.00[facility] CampusUrine RBC0-2 #/HPF0-2FOhioHealth Hardin Memorial HospitalUrine Squamous Epithelial CellsRARE #/LPFNONE/RARESt. Mary'S Medical Center, [facility] CampusUrine Transitional Epithelial CellsRARE #/LPFAbnormalNONE [facility] HospitalUrine WBC0-2 #/HPFAbnormalNONE [facility] HospitalNuclear dots nuclear Ab pattern [Titer] in Serum by Immunofluorescenceon 83-39-3417Xxlgmfm dots nuclear Ab pattern IF (S) [Titer][facility] Medical CenterNuclear membrane pores nuclear Ab pattern [Titer] in Serum by Immunofluorescenceon 04-16-2025 Nuclear membrane pores nuclear Ab pattern IF (S) [Titer][facility] Medical CenterPCNA extractable nuclear Ab [Titer] in Serum by Immunofluorescence on 32-68-0090CZKE extractable nuclear Ab IF (S) [Titer][facility] Medical CenterProteinase 3 Ab [Units/volume] in Serum by Immunoassayon 02-38-9446Qnkhswlrfm 3 Ab IA Qn (S)<0.2 units0.0-0.9[facility] Medical Centererum classic neutrophil cytoplasmic antibody titer by immunofluorescence on 39-17-3833Imfvxkpudp cytoplasmic Ab.classic IF (S) [Titer]<1:20 titer Neg:<1:20[facility] Medical Centererum homogeneous pattern antinuclear antibody (SATYA) titeron 34-11-2640Habbvydkex nuclear Ab pattern (S) [Titer][facility]othe Hospitalerum nuclear antibody titeron 04-16-2025 Nuclear Ab (S) [Titer]PositiveAbnormal.[facility]ont[facility] CampusComment on above:Negative <1:80 Borderline 1:80 Positive >1:80Serum nucleolar pattern antinuclear antibody (SATYA) titeron 95-91-5957Zpfacmlqa nuclear Ab pattern (S) [Titer]TNP.[facility] Medical Centererum or plasma anion gap determinationon 84-64-0237Fsxed gap [Moles/Vol]Serum or plasma anion gap determinationSt. Mary'S Medical Center, Ironton CampusAnion gap [Moles/Vol]12.6 mmol/L [facility] Centererum or plasma complement C3 measurement (mass/volume)on 74-00-4714Bexzvppwwr C3 [Mass/Vol]161 mg/nF16-860FxtwrjmhgUniversity Hospitals Parma Medical Centererum or plasma complement C4 measurement (mass/volume)on 43-60-8713Xgftntgesf C4 [Mass/Vol]45 mg/iWLtvkxbeh28-10EqcjzlhyxSt. Mary'S Medical Center, [facility]ont[facility] CampusComment on above:Performed at: [place] [id number] Director: Yaw Shelby PhD, Phone: [phone] Serum speckled pattern antinuclear antibody (SATYA) titeron 06-42-8670Msfgxjyo nuclear Ab pattern (S) [Titer]1:320Abnormal.[facility] Comment on above:Dense Fine Speckled pattern is noted. This pattern suggeststhe presence of DFS70 antibody which hasa low prevalencein systemic autoimmune rheumatic diseases.ICAP nomenclature: AC-2,4,5,29Urine Cultureon 04-16-2025 Bacteria identified Cx Nom (U)<9,000 colonies/ml mixed bacterial skin contaminants 2 Days PERFORMED BY: [place] [address] PATHOLOGIST LCSW LESLEY WHITMORE M.D.NormalThe [facility] Hospital Physician GroupComment on above: Performed By: #### CUU #### [place] [address] USAUrine cultureOrdered By: Shyam Crowell on 43-99-5342Uahqzgcx identified Cx Nom (U)2 DaysSt. Mary'S Medical Center, Ironton CampusUrine protein/creatinine ratioon 12-00-7100Agpjpmv/Creatinine (U) [Ratio]Urine protein/creatinine ratioSt. Mary'S Medical Center, Ironton CampusProtein/Creatinine (U) [Ratio]0.20[facility] CampusUrine Cultureon 70-12-2875Znbjlvpn identified Cx Nom (U)50,000 colonies/ml mixed bacterial skin contaminants 2 Days PERFORMED BY: [place] [address] PATHOLOGIST LCSW LESLEY WHITMORE M.D.[facility] Physician GroupComment on above: Performed By: #### CUU #### [facility] [address] [place] [address] USAUrine cultureOrdered By: Natasha Vazquez on 04-14-2025 Bacteria identified Cx Nom (U)Urine cultureSt. Mary'S Medical Center, [facility] Campus Bacteria identified Cx Nom (U)2 DaysSt. Mary'S Medical Center, Ironton CampusUrine Cultureon 56-73-8216Fiavfohv identified Cx Nom (U)Urine Culture Results 30,000 colonies/ml Mixed Bacterial Skin Contaminants 2 Days PERFORMED BY: [place] [address] PATHOLOGIST LCSW LIZA RUIZ M.D.[facility] Physician GroupComment on above: Performed By: #### CUU #### [facility] [address] [place], [place] [address] USAUrine cultureOrdered By: Stefani Quezada on 47-45-2293Obutvvxm identified Cx Nom (U)Urine cultureSt. Mary'S Medical Center, Ironton CampusBacteria identified Cx Nom (U)[facility]36on 97-51-546260Qxanxnlsy lab results from 03/03/2025: MD Megan Thomas MA I assume this blood test is after she started hydrochlorothiazide, her kidney function and potassium appear to be stable. Continue current management. Patient informed.[facility]36on Patient returned my call. She hasn't started hydrochlorothiazide yet. She said the pharmacy had trouble obtaining it, and then she and her were out of town for a bit. She will start it today and have BMP next week. Order faxed to [facility]36Regarding lab results from 02/03/2025: MD Megan Thomas MA Creatinine is little higher after starting hydrochlorothiazide. Check with the patient if her shortness of breath and blood pressure are better. Spoke with . He said Margy was currently driving somewhere but he will have her return my call.[facility] HospitalPulmonary function teston 45-60-3979SdnSkfuaj Health SystemNo Panel Informationon 56-59-4245WzuarysLOLA Dickey 02/06/2025 1:22 PM L Inj/Asp: R [...] discussed. Consent was given by the patient. [facility] HospitalFollow-Upon 67-82-7006Zcvnai-[id number] Margy Oakes 1945 F Date Provider Department Center 01/21/2025 [id number]-JEDLIJKIMMY ROSADO Family History Problem Relation Age of Onset Cancer Mother Cancer Father Cancer Brother Family Status - Relation Status Age at Mother Father Brother Level of Service:84282 [place] OFFICE/OUTPATIENT ESTABLISHED MOD MDM 30 MIN Reason for Visit and Comments: Post-Cath [731][facility] HospitalAFB CULTURE(CONCENTRATED)on 87-00-0806Dkdsvaktibacj sp identified Org specific cx Nom (Unsp spec)SPECIMEN NOTES SPECIMEN 3 AFB SMEAR NO ACID FAST BACILLI (CONCENTRATED SMEAR) CULTURE RESULTS NO ACID FAST BACILLI ISOLATED IN 8 WEEKSNoLakeHealth Beachwood Medical CenterComment on above:Performed By: #### 543-9 #### [facility] ([id number]) [address] [place], [place] [address]Smobxirmxrkvq sp identified Org specific cx Nom (Unsp spec) SPECIMEN NOTES SPECIMEN 1 AFB SMEAR NO ACID FAST BACILLI (CONCENTRATED SMEAR) CULTURE RESULTS NO ACID FAST BACILLI ISOLATED IN 8 WEEKSNormalProMedica Dawn HospitalComment on above:Performed By: #### 543-9 #### [facility] ([id number]) [address], [address] [place], [place] [address] CELL [address] AND DIFFon 55-36-9181YMCM FLUID COMMENT Interpretation--------NormalProMedica Dawn HospitalComment on above: Result Comment: Reference values for this fluid type are undefined, as fluid accumulation is considered abnormal.Performed By: #### BFCT #### [facility] ([id number]) [address] [facility], [address] [place], [place] [address]XGBVP CLARITYTURBIDNormalProMedica Dawn HospitalComment on above:Performed By: #### BFCT #### [facility] ([id number]) [address], [address] [place], [place] [address]VBRWQ COLORCOLORLESSNormalProMedica Dawn HospitalComment on above:Performed By: #### BFCT #### [facility] ([id number]) [address], [address] [place], [place] [address]VTAAQ OCHHPQPIMP74 %NormalProMedica Dawn HospitalComment on above:Performed By: #### BFCT #### [facility] ([id number]) [address], [address] [place], [place] [address]MKOZI LYMPHOCYTE1 %NormalProMedica Dawn HospitalComment on above:Performed By: #### BFCT #### [facility] ([id number]) [address], [address] [place], [place] [address]SOBTE AKUERWPUSNK56 %NormalProMedica Dawn HospitalComment on above:Performed By: #### BFCT #### [facility] ([id number]) [address], [address] [place], [place] [address]UOKLW RBC CT129 /uLNormalProMedica Detroit HospitalComment on above:Performed By: #### BFCT #### [facility] ([id number]) [address], [address] [place], [place] [address]PZYAN SPECIMEN TYPEBRONCHIAL WASHINGNormalProMedica Detroit HospitalComment on above:Result Comment: RIGHT LUNG, MIDDLE LOBEPerformed By: #### BFCT #### [facility] ([id number]) [address], [address] [place], [place] [address]PTIDOTXHLZV2 %NormalProMedica Detroit HospitalComment on above: Performed By: #### BFCT #### [facility] ([id number]) [address], [address] [place], [place] [address]SKTBRNPTQ CELL MD0584 /uLNormalProMedica Detroit HospitalComment on above:Performed By: #### BFCT #### [facility] ([id number]) [address], [address] [place], [place] [address]KMPY FLUID COMMENT Interpretation--------Normal Pro[facility]ica [facility]ita Health SystemComment on above:Result Comment: Reference values for this [...] is considered abnormal.Performed By: #### BFCT #### [facility] ([id number]) [address], [address] [place], [place] [address]CZXMF CLARITYTURBIDNormalProMedica Detroit HospitalComment on above:Performed By: #### BFCT #### [facility] ([id number]) [address], [address] [place], [place] [address]SELHW COLORREDNormalProMedica Dawn HospitalComment on above: Performed By: #### BFCT #### [facility] ([id number]) [address] [facility], [address] [place], [place] [address]IXITM EOSINOPHIL3 %NormalProMedica Dawn HospitalComment on above:Performed By: #### BFCT #### [facility] ([id number]) [address] [facility], [address] [place], [place] [address]ONDGK JROOZULMPS93 %NormalProMedica Dawn HospitalComment on above:Performed By: #### BFCT #### [facility] ([id number]) [address] [facility], [address] [place], [place] [address]CQCXG MAINSEBGOYI51 %NormalProMedica Dawn HospitalComment on above:Performed By: #### BFCT #### [facility] ([id number]) [address] [facility], [address] [place], [place] [address]UVPDE RBC FE94113 /uLNormalProMedica Dawn HospitalComment on above:Performed By: #### BFCT #### [facility] ([id number]) [address] [facility], [address] [place], [place] [address]ETJTD SPECIMEN TYPEBRONCHOALVEOLAR LAVAGENormalProMedica Dawn HospitalComment on above:Result Comment: RIGHT LUNG, MIDDLE LOBEPerformed By: #### BFCT #### [facility] ([id number]) [address] [facility], [address] [place], [place] [address]JHHHFSGJXTA1 %NormalProMedica Dawn HospitalComment on above: Performed By: #### BFCT #### [facility] ([id number]) [address] [facility], [address] [place], [place] [address]OJCYFUAJP CELL CT4 /uLNormalProMedica Dawn HospitalComment on above:Performed By: #### BFCT #### [facility] ([id number], [address] [place], [place] [address]Wopnxtxarj 62-04-0504CgkugltwIlksheDlyRqvooq [facility] Comment on above:Result Comment: [facility] [address] [place] [address] Cytology Consultation ADDENDUM VT Patient Name:MARGY OAKES:1945 (Age: 79)Gender:FTaken:12/25/2024Reported:12/29/2024 16:11Physician(s):Isidra Simmons MD ([phone])Copy To: Rec. #:[id number]: #[id number] Final Cytologic Diagnosis 1. Right middle lobe, [...] in an addendum. 12/26/2024 Interpretation performed at [facility], [address] [place] [address], License number: [id number].Electronically Signed Out By Min Acuna MD Additional [...] and Drug Administration (FDA) cleared (test/vendor): Confirm/ [facility], Primary Antibody: SP1 Progesterone Receptor: FDA cleared (test/vendor): Confirm/ [facility], Primary Antibody: 1E2 HER2: FDA approved (test/vendor): Pathway/ [facility], Primary Antibody: 4B5 Detection System (ER, PgR and/or HER2): [facility] ultraView Plymouth DAB Detection Kit (indirect biotin-free detection) Scoring [...] and Progesterone receptor Testing in Breast Cancer; [place] Society of Clinical Oncology/College of [place] Pathologists Guideline Update. ArchPathol Lab Med. doi:10.5858/arpa.9372-5722-MU. 2. Erwin SAUCEDA, Diana PEPE, Aydee KH, et al. Human Epidermal Growth Factor Receptor 2 Testing in Breast Cancer; [place] Society of Clinical Oncology/College of [place] Pathologist Clinical PracticeGuideline Focused Update. Arch Pathol Lab Med. doi: 10.5858/arpa.9551-4240-CY. Electronically Signed Out Min Acuna MD Addendum (PHS) Date Reported: 01/08/2025 Results of testing for HER2, Breast Tumor, FISH, Tissue dated 01/07/2025 are received from [facility], [address] [place] [address] and are as follows: Result Summary: Negative Interpretation: There is no evidence of HER2 (ERBB2) gene amplification in this tumor sample. According to current ASCO/CAP guidelines for HER2 testing in breast cancer, dual-probe in situ hybridization (UMM) results indicating a HER2/ (more content not included)...FUNGAL CULTUREon 42-10-3812Mbuwtd identified Cx Nom (Unsp spec) SPECIMEN NOTES SPECIMEN 3 FUNGAL SMEAR NO FUNGAL ELEMENTS SEEN ON CONCENTRATED SMEAR CULTURE RESULTS NO FUNGUS ISOLATED AFTER 4 WEEKSNormalProOhiohealth Marion General Hospitalca Detroit HospitalComment on above: Performed By: #### 580-1 #### [facility] ([id number]) [address], [address] [place], [place] [address]Rppwrs identified Cx Nom (Unsp spec)SPECIMEN NOTES SPECIMEN 1 FUNGAL SMEAR NO FUNGAL ELEMENTS SEEN ON CONCENTRATED SMEAR CULTURE RESULTS NO FUNGUS ISOLATED AFTER 4 WEEKSNormalProOhiohealth Marion General Hospitalca Detroit HospitalComment on above: Performed By: #### 580-1 #### [facility] ([id number]) [address], [address] [place], [place] [address]IMXPH RESPIRATORY CULTUREon 03-84-9333Mjmqdfjd identified Respiratory culture Nom (Sput)SPECIMEN NOTES SPECIMEN 3 GRAM STAIN >25 WHITE BLOOD CELLS/LPF 0 to 1 SQUAMOUS EPITHELIAL CELLS/LPF 0 CILIATED EPITHELIAL CELLS/LPF NO ORGANISMS SEEN CULTURE RESULTS NO GROWTH 2 DAYSNoLakeHealth Beachwood Medical CenterComment on above:Performed By: #### 624-7 #### [facility] ([id number]) [address] [place] [address], [address] [place], [place] [address]Szppivlu identified Respiratory culture Nom (Sput)SPECIMEN NOTES SPECIMEN 1 GRAM STAIN 0 to 1 WHITE BLOOD CELLS/LPF 0 SQUAMOUS EPITHELIAL CELLS/LPF 0 CILIATED EPITHELIAL CELLS/LPF NO ORGANISMS SEEN CULTURE RESULTS NO GROWTH 2 DAYSNoLakeHealth Beachwood Medical CenterComment on above:Performed By: #### 624-7 #### [facility] ([id number]) [address] [place] [address], [address] [place], [place] [address]Ajwxprxu Pathologyon 53-96-5763Rwxwktid PathologyNoalThe Surgical Hospital at SouthwoodsComment on above:Result Comment: [facility] [address] [place] [address] Surgical Pathology Consultation ADDENDUM VT Patient Name:MARGY OAKES:1945 (Age: 79)Gender:FTaken:12/25/2024Reported:12/30/2024Physician(s):Isidra Simmons MD ([phone])Copy To: Rec. #:[id number]: #[phone] Final Pathologic Diagnosis Right lung, middle lobe nodule, needle biopsy: CARCINOMA, consistent with METASTATIC MAMMARY CARCINOMA. Comment The tumor is glandular and papillary. Immunostains were performed, with adequate controls, and reveal strong positivity for GATA3 and CK7 with negative TTF1, Napsin-A and p40. The morphology and immunophenotype are those of a metastatic mammary carcinoma. ER, VT and Her2 will be performed and reported [...] and Drug Administration (FDA) cleared (test/vendor): Confirm/ [facility], Primary Antibody: SP1 Progesterone Receptor: FDA cleared (test/vendor): Confirm/ [facility], Primary Antibody: 1E2 HER2: FDA approved (test/vendor): Pathway/ [facility], Primary Antibody: 4B5 Detection System (ER, PgR and/or HER2): [facility] ultraView Plymouth DAB Detection Kit (indirect biotin-free detection) Scoring [...] and Progesterone receptor Testing in Breast Cancer; [place] Society of Clinical Oncology/College of [place] Pathologists Guideline Update. ArchPathol Lab Med. doi:10.5858/arpa.5660-3992-SL. 2. Erwin SAUCEDA, Diana CANTU, Aydee CARDENAS, et al. Human Epidermal Growth Factor Receptor 2 Testing in Breast Cancer; [place] Society of Clinical Oncology/College of [place] Pathologist Clinical PracticeGuideline Focused Update. Arch Pathol Lab Med. doi: 10.5858/arpa.9349-5563-TC. The tissue block is being sent for Her2 analysis by FISH. Electronically Signed Out Agustin Quinteros MD Addendum (PHS) Date Reported: 01/12/2025 Results of testing for HER2, Breast Tumor, FISH, Tissue dated 01/06/2025 are received from [facility], [address] [place] [address] and are as follows: Result Summary: Negative [...] 1. Erwin et al., J Clin Oncol, 36(20):8256-7791, 2018 Result nuc umm(L35R2o2-9,MPX4c2-1) HER2/D17Z1 ratio: 1.22 Average HER2 signals per cell: 3.6 Average D17Z1 signals per cell: 2.9 Reason for Referral: HER2 equivocal metastatic mammary carcinoma Source: Right lung Method: FISH using probes for HER2 (17q12) and a chromosome 17 centromere (D17Z1) control probe ([employer], [employer] Two technologists score signals in (more content not included)...APTTon 31-44-0197mBNC Coag (PPP) [Time][address] [facility] HospitalBASIC METABOLIC PANLon 44-61-0518Xqvlz gap [Moles/Vol]10 mmol/LNormal5-15ProToledo Hospital HospitalComment on above:Performed By: #### SHERMAN 32371-2 #### [facility] ([id number]) [address] [place] [address] #### CBCA, BMP #### [facility] ([id number]) [address] [facility], [address] [place], [place] [address]Kxsclsa [Mass/Vol]9.6 mg/dLNormal8.5-10.5POhioHealth Marion General HospitalComment on above:Performed By: #### SHERMAN 32447-8 #### [facility] ([id number]) [address] [place] [address] #### CBCA, BMP #### [facility] ([id number]) [address] [facility] [place], [place] [address]Avzjzvot [Moles/Vol]102 mmol/HBmepxc47-161QhoVygqmaDoctors HospitalComment on above:Performed By: #### SHERMAN, 01143-3 #### [facility] ([id number]) [address] [place] [address] #### CBCA, BMP #### [facility] ([id number]) [address] [facility], [address] [place], [place] [address]DC[address] [Moles/Vol]28 mmol/IBgqbyw92-67LvlIjlsmdOhioHealth Marion General HospitalComment on above:Performed By: #### SHERMAN, 90714-8 #### [facility] ([id number]) [address] [place], [place] [address] #### CBCA, BMP #### [facility] ([id number]) [address] [facility] [place], [place] [address]Dtsebeyddy [Mass/Vol]1.18 mg/dLHigh0.40-1.00ProDoctors HospitalComment on above:Result Comment: METHOD TRACEABLE TO IDMS STANDARDPerformed By: #### SHERMAN 83113-5 #### [facility] ([id number]) [address] [place], [place] [address] #### LEXIE BMP #### [facility] ([id number]) [address] [facility], [address] [place] [address]EME/1.73 sq M.predicted among non-blacks MDRD (S/P/Bld) [Vol rate/Area]47 mL/min/{1.73_m2}Low>59ProDoctors HospitalComment on above:Result Comment: Reported eGFR is based on the CKD-EPI 2020 equation that does not use a race coefficient.Performed By: #### SHERMAN 99281-2 #### [facility] ([id number]) [address] [place], [place] [address] #### KADEN OWEN #### [facility] ([id number]) [address] [facility], [address] [place] [address]Aikxcki [Mass/Vol]80 mg/gKEnbnip84-46FixBuvxhvDoctors HospitalComment on above:Performed By: #### SHERMAN 82192-9 #### [facility] ([id number]) [address] [place], [place] [address] #### LEXIE BMP #### [facility] ([id number]) [address] [place] [address], [address] [place] [address]Wckerjxke [Moles/Vol]4.6 mmol/LNormal3.5-5.0ProDoctors HospitalComment on above:Performed By: #### SHERMAN 97655-4 #### [facility] ([id number]) [address] [place] [address] #### CBCA, BMP #### [facility] ([id number]) [address] [facility], [address] [place], [place] [address]Kcgaif [Moles/Vol]140 mmol/CBiuuma579-269YzwYpttbxDoctors HospitalComment on above:Performed By: #### SHERMAN 52584-2 #### [facility] ([id number]) [address] [place] [address] #### CBCA, BMP #### [facility] ([id number]) [address] [place] [address], [address] [place], [place] [address]Lmhb nitrogen [Mass/Vol]16 mg/dLNormal5-27ProDoctors HospitalComment on above:Performed By: #### SHERMAN 18426-1 #### [facility] ([id number]) [address] [place] [address] #### CBCA, BMP #### [facility] ([id number]) [address] [place] [address], [address] [place] [address]Ochqd Metabolic Panelon 22-93-9398Fltit gap [Moles/Vol]10 mmol/L 5 - 15 mmol/[facility] SystemCalcium [Mass/Vol]9.6 mg/dL8.5 - 10.5 mg/dL [facility] HospitaledicEssentia Health SystemChloride [Moles/Vol]102 mmol/L98 - 109 mmol/Count includes the [facility] HospitaloMedrussellville hospital Health SystemCO2 [Moles/Vol]28 mmol/L22 - 32 mmol/[facility] Creatinine [Mass/Vol]1.18 mg/dLHigh0.40 - 1.00 mg/dLCleveland Clinic [facility] Comment on above:METHOD TRACEABLE TO IDMS STANDARDeGFR (CKD-EPI)non-race qsdxpvknh31Deq- [facility] VCUComment on above: Reported eGFR is based on the CKD-EPI 2020 equation that does not use a race coefficient. Glucose [Mass/Vol]80 mg/dL65 - 99 mg/dLBethesda North Hospital SystemInterpretation and review of laboratory resultsAbnormalProAultman Orrville Hospital SystemPotassium [Moles/Vol]4.6 mmol/L3.5 - 5.0 mmol/LProMedica Health SystemSodium [Moles/Vol] 140 mmol/L134 - 146 mmol/LProMedica Health SystemUrea nitrogen [Mass/Vol]16 mg/dL5 - 27 mg/dLProMediwa Health Schoolcraft Memorial HospitalProAultman Orrville Hospital SystemCBC AND AUTO DIFF on 88-49-0673EISNJPOY BASOPHIL0.1 X10E9/LNormal0.0-0.2ProMedica [facility] HospitalComment on above:Performed By: #### SHERMAN, 58465-0 #### [facility] ([id number]) [address] [place] [address] #### CBCA, BMP #### [facility] ([id number]) [address] [facility], [address] [place], [place] [address]VHLUTKNE NEUTROPHIL2.6 X10E9/LNormal1.5-6.6ProDoctors HospitalComment on above:Performed By: #### SHERMAN, 08287-6 #### [facility] ([id number]) [address] [place] [address] #### CBCA, BMP #### [facility] ([id number]) [address] [facility], [address] [place], [place] [address]Cbkpmqovn/100 WBC (Bld)1.1 %NormalProDoctors HospitalComment on above:Performed By: #### PINValeri, 90772-8 #### [facility] ([id number]) [address] [place] [address] #### CBCA, BMP #### [facility] ([id number]) [address] [facility], [address] [place], [place] [address]Wprcotrqzmq (Bld) [#/Vol]0.3 10*3/uLNormal0.0-0.4Bucyrus Community HospitalComment on above:Performed By: #### SHERMAN, 14995-9 #### [facility] ([id number]) [address] [place] [address] #### CBCMike, BMP #### [facility] ([id number]) [address] [facility], [address] [place], [place] [address]Wwcgmgzhyed/100 WBC (Bld)6.0 %NormalProToledo Hospital HospitalComment on above:Performed By: #### SHERMAN, 62587-4 #### [facility] ([id number]) [address] [place] [address] #### CBCMike, BMP #### [facility] ([id number]) [address] [facility] [place], [place] [address]Dfedkrvloqc distribution width (RBC) [Ratio]13.5 %Normal 11.5-15.0ProDoctors HospitalComment on above:Performed By: #### SHERMAN, 77556-3 #### [facility] ([id number]) [address] [place] [address] #### CBCMike, BMP #### [facility] ([id number]) [address] [facility], [address] [place], [place] [address]Trfclhiuwq (Bld) [Volume fraction]33.9 %Avj01-98NehVjwptoToledo Hospital HospitalComment on above:Performed By: #### SHERMAN, 60950-9 #### [facility] ([id number]) [address] [place], [place] [address] #### CBCA, BMP #### [facility] ([id number]) [address] [facility], [address] [place], [place] [address]Tkywlvsrlp (Bld) [Mass/Vol]11.6 g/dLLow11.7-15.5ProMedica [facility] HospitalComment on above:Performed By: #### SHERMAN, 60788-5 #### [facility] ([id number]) [address] [place], [place] [address] #### CBCA, BMP #### [facility] ([id number]) [address] [facility], [address] [place], [place] [address]Orwyjpzvfnd (Bld) [#/Vol]1.7 10*3/uLNormal1.0-3.5[facility] HospitalComment on above:Performed By: #### SHERMAN 94048-9 #### [facility] ([id number]) [address] [place] [address] #### CBCA, BMP #### [facility] ([id number]) [address] [facility], [address] [place], [place] [address]Nrnvxieuwos/100 WBC (Bld)33.4 %NormalProToledo Hospital HospitalComment on above:Performed By: #### SHERMAN 66647-9 #### [facility] ([id number]) [address] [place] [address] #### CBCA, BMP #### [facility] ([id number]) [address] [facility], [address] [place], [place] [address]MXO (RBC) [Entitic mass]32.6 woPtbqqy44-23EhwMqjqgsDoctors HospitalComment on above:Performed By: #### SHERMAN 40468-5 #### [facility] ([id number]) [address] [place], [place] [address] #### CBCA, BMP #### [facility] ([id number]) [address] [facility], [address] [place], [place] [address]FTVY (RBC) [Mass/Vol]34.3 g/bVHwasur35-69WzfUwcohqDoctors HospitalComment on above:Performed By: #### SHERMAN, 11835-8 #### [facility] ([id number]) [address] [place], [place] [address] #### CBCA, BMP #### [facility] ([id number]) [address] [facility], [address] [place], [place] [address]YGJ (RBC) [Entitic vol]95 yVHgelsj28-727PybPzqdsiToledo Hospital HospitalComment on above:Performed By: #### SHERMAN 63251-5 #### [facility] ([id number]) [address] [place], [place] [address] #### CBCA, BMP #### [facility] ([id number]) [address] [facility], [address] [place], [place] [address]Bctaymuhd (Bld) [#/Vol]0.4 10*3/uLNormal0-0.9ProToledo Hospital HospitalComment on above:Performed By: #### SHERMAN 34223-5 #### [facility] ([id number]) [address] [place], [place] [address] #### CBCA, BMP #### [facility] ([id number]) [address] [facility], [address] [place], [place] [address]Wmnkvsokm/100 WBC (Bld)8.3 %NormalProToledo Hospital HospitalComment on above:Performed By: #### SHERMAN, 51721-8 #### [facility] ([id number]) [address] [place], [place] [address] #### CBCA, BMP #### [facility] ([id number]) [address] [facility], [address] [place], [place] [address]Phazozklzsp/100 WBC (Bld)51.2 %NormalProToledo Hospital HospitalComment on above:Performed By: #### PINValeri, 85413-2 #### [facility] ([id number]) [address] [place], [place] [address] #### CBCA, BMP #### [facility] ([id number]) [address] [facility], [address] [place], [place] [address]Iplsoxvx mean volume (Bld) [Entitic vol]7.6 fLNormal7-12 [facility] HospitalComment on above:Performed By: #### SHERMAN 67766-9 #### [facility] ([id number]) [address] [place] [address] #### LEXIE, BMP #### [facility] ([id number]) [address] [facility], [address] [place], [place] [address]Sroiagqmf (Bld) [#/Vol]244 10*3/iTGtwdoo170-262PqiHrjhigToledo Hospital HospitalComment on above:Performed By: #### SHERMAN 91738-2 #### [facility] ([id number]) [address] [place], [place] [address] #### LEXIE, BMP #### [facility] ([id number]) [address] [facility], [address] [place], [place] [address]JFC COUNT3.56 X10E12/LLow3.80-5.20ProDoctors HospitalComment on above:Performed By: #### SHERMAN 49416-6 #### [facility] ([id number]) [address] [place], [place] [address] #### LEXIE, BMP #### [facility] ([id number]) [address] [facility], [address] [place], [place] [address]ASC (Bld) [#/Vol]5.0 10*3/uLNormal4.0-11.0ProDoctors HospitalComment on above:Performed By: #### SHERMAN 26599-3 #### [facility] ([id number]) [address] [place] [address] #### CBCA, BMP #### [facility] ([id number]) [address] [facility], [address] [place], [place] [address]LKN auto differentialon 44-82-0168Mkvnlqyjl (Bld) [#/Vol]0.1 10*3/uLCleveland Clinic Akron General Lodi HospitalBasophils/100 WBC (Bld)1.1 %[facility] HospitalEosinophils (Bld) [#/Vol]0.3 10*3/uLCleveland Clinic Akron General Lodi HospitalEosinophils/100 WBC (Bld)6 %[facility] HospitalErythrocyte distribution width (RBC) [Ratio] 13.5 %11.5 - 15.0 %[facility] HospitalHematocrit (Bld) [Volume fraction]33.9 %Low35 - 47 %[facility] HospitalHemoglobin (Bld) [Mass/Vol]11.6 g/dLLow11.7 - 15.5 g/dLCleveland Clinic [facility] HospitalInterpretation and review of laboratory resultsAbnormalCleveland Clinic [facility] Lodi HospitalLymphocytes (Bld) [#/Vol]1.7 10*3/uL [facility] HospitalLymphocytes/100 WBC (Bld)33.4 %[facility] HospitalMCH (RBC) [Entitic mass]32.6 pg27 - 34 pgPTriHealth McCullough-Hyde Memorial HospitalMCHC (RBC) [Mass/Vol]34.3 g/dL32 - 36 g/dLCleveland Clinic [facility] HospitalMCV (RBC) [Entitic vol]95 fL80 - 100 fLPTriHealth McCullough-Hyde Memorial HospitalMonocytes (Bld) [#/Vol]0.4 10*3/uLCleveland Clinic [facility] HospitalMonocytes/100 WBC (Bld)8.3 %[facility] HospitalNeutrophils (Bld) [#/Vol]2.6 10*3/uLCleveland Clinic [facility] HospitalNeutrophils/100 WBC (Bld)51.2 % [facility] HospitalPlatelet mean volume (Bld) [Entitic vol]7.6 fL7 - 12 fL [facility] HospitalPlatelets (Bld) [#/Vol]244 10*3/uLC[facility] Clinic [facility] RBC (Bld) [#/Vol]3.56 10*6/uLLowCleveland Clinic [facility] Lodi HospitalWBC corrected for nucl RBC Auto (Bld) [#/Vol]5PTriHealth McCullough-Hyde Memorial HospitalProMedica Health SystemCT ION CHEST WO CONTon [id number] ION CHEST WO CONTCT ION CHEST WO CONT CT ION CHEST WO CONT CLINICAL INDICATION: Pulmonary nodules/lesions, multiple COMPARISON: CT chest 11/14/2024 TECHNIQUE: Noncontrast CT chest was performed. Coronal and sagittal reformatted images were generated and reviewed. Automated exposure control was utilized. Computer aided detection for pulmonary nodules was performed utilizing [employer] software. FINDINGS: Lower Neck & Thyroid: Unremarkable. [...] by Emerson Carlos MD on 12/12/2024 9:50 AMNormalProDoctors HospitalNo Panel Informationon 18-88-7997RxtGjijul Health SystemPROTIME AND INRon 76-88-0503LHK Coag (PPP) [Relative time]1.0 {INR}Normal 0.8-1.1POhioHealth Marion General HospitalComment on above:Performed By: #### PINValeri, 42526-9 #### [facility] ([id number]) [address] [place] [address] #### CBCA, BMP #### [facility] ([id number]) [address], [address] [place], [place] [address]PH Coag (PPP) [Time]11.3 sNormal9.8-13.2POhioHealth Marion General HospitalComment on above:Performed By: #### SHERMAN, 22718-2 #### [facility] ([id number]) [address] [place] [address] #### CBCA, BMP #### [facility] ([id number]) [address] [place], [place] [address]Grmwftb & INRon 15-27-6010JXD Coag (PPP) [Relative time]1 {INR} ProMedica Health SystemPT Coag (PPP) [Time]11.3 sProMedWVUMedicine Barnesville Hospital SystemaPTT Coag (PPP) [Time]on 93-85-7416kDNB Coag (Bld) [Time]34 xXlmkzz11-72VzqFjqthiBucyrus Community HospitalComment on above:Performed By: #### PINR, 17186-3 #### [facility] ([id number]) [address] [place] [address] #### CBCA, BMP #### [facility] ([id number]) [address] [place], [place] [address]GBvd 93-46-0306XQ Attestation signed by Kimmy Rosado MD at 12/09/2024 9:23 AM I personally saw and examined the patient on the same date of service as resident/fellow Dr howard. I discussed the findings and therapeutic plan with the resident/fellow Dr Howard. I agree with the documentation, except for any edits/updates below. Teaching Physician's Revisions: None Kimmy Rosado MD, LOCATED WITHIN [facility] H&P reviewed. The patient was examined and there are no changes to the H&P. NormalUnUniversity Hospitals Conneaut Medical CenterNURSNOTEon 12-15-9586WZHNGPBRXK educated pt on d/c instructions. This included: [...] wheeled off of unit with all of belongings.NormalUnUniversity Hospitals Conneaut Medical CenterALT No additional P-5'-P [Catalytic activity/Vol]on 46-32-2619YEH [Catalytic activity/Vol]15 U/LNormal0-31PKing's Daughters Medical Center OhioComment on above:Performed By: #### LEXIE, 1744-2, 1920-06, BMP, 84012-3 #### [facility] ([id number]) [address], [address] [place] [address]DHJen 58-72-9044WCN [Catalytic activity/Vol]18 U/LNormal0-41 ProMCommunity Hospital of GardenaComment on above:Performed By: #### LEXIE, 1744-2, 1920-06, BMP, 86700-4 #### [facility] ([id number]) [address], [address] [place] [address]AXZTA METABOLIC PANLon 90-77-9155Gucbp gap [Moles/Vol]7 mmol/L Normal5-15MetroHealth Main Campus Medical CenterComment on above:Performed By: #### LEXIE, 1743-2, 1920-06, BMP, 33799-5 #### [facility] ([id number]) [address], [address] [place] [address]Qozzwwi [Mass/Vol]9.7 mg/dLNormal8.5-10.5PKing's Daughters Medical Center OhioComment on above:Performed By: #### LEXIE, 1743-2, 1920-06, BMP, 57338-0 #### [facility] ([id number]) [address], [address] [place] [address]Liymiafk [Moles/Vol]102 mmol/XNdafbi54-136VxvZosogvMetroHealth Main Campus Medical CenterComment on above:Performed By: #### LEXIE, 1744-2, 1920-06, BMP, 85832-7 #### [facility] ([id number]) [address], [address] [place] [address]HT1 [Moles/Vol]32 mmol/JOifrfu64-65FljMtjjqpKing's Daughters Medical Center Ohio Comment on above:Performed By: #### LEXIE, 1744-2, 1920-06, BMP, 18315-1 #### [facility] ([id number]) [address], [address] [place], [place] [address]Pzvtpmthay [Mass/Vol]1.31 mg/dLHigh0.40-1.00ProMemorial Hermann Northeast HospitalComment on above:Result Comment: METHOD TRACEABLE TO IDMS STANDARD Performed By: #### LEXIE, 1743-2, 1920-06, BMP, 03211-5 #### [facility] ([id number]) [address], [address] [place], [place] [address]GWK/1.73 sq M.predicted among non-blacks MDRD (S/P/Bld) [Vol rate/Area]41 mL/min/{1.73_m2}Low>59ProMemorial Hermann Northeast HospitalComment on above: Result Comment: Reported eGFR is based on the CKD-EPI 2020 equation that does not use a race coefficient.Performed By: #### LEXIE, 1743-12, 1920-06, KADEN, 35503-7 #### [facility] ([id number]) [address], [address] [place], [place] [address]Rnjckpk [Mass/Vol]98 mg/dXYblifq41-47XwbVaeavaMetroHealth Main Campus Medical Center Comment on above:Performed By: #### LEXIE, 1743-12, 1920-06, BMP, 07387-5 #### [facility] ([id number]) [address], [address] [place], [place] [address]Thutfualn [Moles/Vol]5.3 mmol/LHigh3.5-5.0ProMemorial Hermann Northeast HospitalComment on above:Performed By: #### LEXIE, 1743-2, 1920-06, BMP, 54276-8 #### [facility] ([id number]) [address], [address] [place], [place] [address]Cyrnca [Moles/Vol]141 mmol/PPsphqq660-199CcoBjsqux Fremont HospitalComment on above:Performed By: #### LEXIE, 1743-2, 1920-06, BMP, 14749-9 #### [facility] ([id number]) [address], [address] [place], [place] [address]Gmol nitrogen [Mass/Vol]19 mg/dLNormal5-27ProMemorial Hermann Northeast HospitalComment on above:Performed By: #### LEXIE, 4-2, 1920-06, BMP, 39636-7 #### [facility] ([id number]) [address], [address] [place], [place] [address]LXN AND AUTO DIFFon 08-10-6725NMPWMDDV BASOPHIL0.0 X10E9/LNormal 0.0-0.2PKing's Daughters Medical Center OhioComment on above:Performed By: #### LEXIE, 1743- 2, 1920-06, BMP, 19782-1 #### [facility] ([id number]) [address], [address] [place], [place] [address]NQSHMHZC NEUTROPHIL2.1 X10E9/LNormal1.5-6.6ProMemorial Hermann Northeast HospitalComment on above:Performed By: #### LEXIE, 1743-2, 1920-06, BMP, 72168-3 #### [facility] ([id number]) [address], [address] [place], [place] [address]Xildqalbd/100 WBC (Bld)0.5 %NormalProMemorial Hermann Northeast Hospital Comment on above:Performed By: #### LEXIE, 1743-2, 1920-06, BMP, 46601-6 #### [facility] ([id number]) [address], [address] [place], [place] [address]Rozfmnpwbty (Bld) [#/Vol]0.3 10*3/uLNormal0.0-0.4Met[facility] Campus Medical CenterComment on above:Performed By: #### LEXIE, 4-2, 1920-06, BMP, 12893-9 #### [facility] ([id number]) [address], [address] [place], [place] [address]Yliqoxfqzwp/100 WBC (Bld)5.6 %NormalProMemorial Hermann Northeast Hospital Comment on above:Performed By: #### LEXIE, 1743-, 1920-06, BMP, 08715-0 #### [facility] ([id number]) [address], [address] [place], [place] [address]Regjnomhekn distribution width (RBC) [Ratio]13.5 %Normal 11.5-15.0MetroHealth [facility] Campus Medical CenterComment on above:Performed By: #### LEXIE, 1743-, 1920-06, BMP, 27557-2 #### [facility] ([id number]) [address] [facility] [address] [place], [place] [address]Oohzabyppa (Bld) [Volume fraction]34.0 %Vov02-93JriBszqarMemorial Hermann Northeast HospitalComment on above:Performed By: #### LEXIE, 1743-12, 1920-06, BMP, 45941-4 #### [facility] ([id number]) [address], [address] [place], [place] [address]Cpfwycgolz (Bld) [Mass/Vol]11.4 g/dLLow11.7-15.5PKing's Daughters Medical Center OhioComment on above:Performed By: #### LEXIE, 1743-12, 1920-06, BMP, 43249-1 #### [facility] ([id number]) [address], [address] [place], [place] [address]Hwbsvahqnoc (Bld) [#/Vol]1.8 10*3/uLNormal1.0-3.5PKing's Daughters Medical Center OhioComment on above:Performed By: #### CBCMike, 1743-2, 1920-06, BMP, 44381-8 #### [facility] ([id number]) [address], [address] [place], [place] [address]Yzgshynqjbf/100 WBC (Bld)38.8 %NormalProOhiohealth Marion General Hospitalca [facility] Comment on above:Performed By: #### CBCMike, 4-2, 1920-06, BMP, 42833-4 #### [facility] ([id number]) [address], [address] [place], [place] [address]LEG (RBC) [Entitic mass]31.9 qmBawkzw45-85VpdInfqxvMemorial Hermann Northeast HospitalComment on above:Performed By: #### CBCMike, 4-2, 1920-06, BMP, 78289-9 #### [facility] ([id number]) [address], [address] [place], [place] [address]KHVM (RBC) [Mass/Vol]33.5 g/wYBrjfqv37-11BvhJwpkwjMetroHealth Main Campus Medical CenterComment on above:Performed By: #### CBCMike, 1743-2, 1920-06, BMP, 81592-3 #### [facility] ([id number]) [address], [address] [place], [place] [address]ZFL (RBC) [Entitic vol]95 qHGnhdfb13-040LvbBnagavMetroHealth Main Campus Medical CenterComment on above:Performed By: #### CBCMike, 1743-2, 1920-06, BMP, 73351-2 #### [facility] ([id number]) [address], [address] [place], [place] [address]Vlqivtvvv (Bld) [#/Vol]0.4 10*3/uLNormal0-0.9Met[facility] Campus Medical CenterComment on above:Performed By: #### CBCMike, 1744-2, 1920-06, BMP, 40011-1 #### [facility] ([id number]) [address], [address] [place], [place] [address]Khlshixtc/100 WBC (Bld)9.4 %[facility] Comment on above:Performed By: #### CBCA, 1744-2, 1920-06, BMP, 95357-4 #### [facility] ([id number]) [address], [address] [place], [place] [address]Ipgrmgeypid/100 WBC (Bld)45.7 %NormalMetroHealth Main Campus Medical Center Comment on above:Performed By: #### CBCMike, 1744-2, 1920-06, BMP, 22061-7 #### [facility] ([id number]) [address], [address] [place] [address]Lowydhfv mean volume (Bld) [Entitic vol]7.8 fLNormal7-12 [facility] [address]S Health CenterComment on above:Performed By: #### CBCMike, 1743-2, 1920-06, BMP, 41410-8 #### [facility] ([id number]) [address], [address] [place], [place] [address]Ncdtewsmg (Bld) [#/Vol]261 10*3/mTEiqpel931-592EgdDlqnuu [facility]remont HospitalComment on above:Performed By: #### CBCMike, 4-2, 1920-06, BMP, 97275-9 #### [facility] ([id number]) [address], [address] [place] [address]RUU COUNT3.57 X10E12/LLow3.80-5.20[facility] Comment on above:Performed By: #### CBCMike, 4-2, 1920-06, BMP, 63816-2 #### [facility] ([id number]) [address], [address] [place] [address]LJD (Bld) [#/Vol]4.5 10*3/uLNormal4.0-11.0[facility] Campus Medical CenterComment on above:Performed By: #### CBCA, 1744-2, 1920-06, BMP, 89536-8 #### [facility] ([id number]) [address], [address] [place] [address]Iujsd 1996 panelon 30-44-7010Myelcdifxxk [Mass/Vol]215 mg/dLHigh 150-200ProMemorial Hermann Northeast HospitalComment on above:Performed By: Zuleyka OWEN, 4- 2, 1920-06, KADEN, 18193-8 #### [facility] ([id number]) [address], [address] [place], [place] [address]Ybcwqsrjjas in HDL [Mass/Vol]57 mg/dLNormal>39ProMemorial Hermann Northeast HospitalComment on above:Result Comment: HDL <40 mg/dL - High Risk HDL > or = 40mg/dL- Desirable HDL >60 mg/dL - Negative Risk Performed By: Zuleyka OWEN, 1743-2, 1920-06, KADEN, 43128-7 #### [facility] ([id number]) [address], [address] [place], [place] [address]Itvpuranogj in LDL [Mass/Vol]99 mg/dLNormal<130ProMemorial Hermann Northeast HospitalComment on above:Result Comment: LDL <100 mg/dL - Desirable LDL >160 mg/dL - High Risk Performed By: #Virgilio OWEN, 4-2, 1920-06, BMP, 09226-6 #### [facility] ([id number]) [address], [address] [place], [place] [address]Qguojdxxqdu in VLDL [Mass/Vol]59 mg/dLHigh0-30ProMemorial Hermann Northeast HospitalComment on above:Performed By: Zuleyka OWEN, 1744-2, 1920-06, KADEN, 78896-0 #### [facility] ([id number]) [address], [address] [place], [place] [address]OTJJERMOUKJ:HDL3.8Rojofx4.0-5.0ProMemorial Hermann Northeast HospitalComment on above:Performed By: #### LEXIE, 1744-2, 1920-06, [facility], 83209-9 #### [facility] ([id number]) [address] [place], [place] [address]Wpiwukswyyqe [Mass/Vol]297 mg/bYNfpt91-444FomGwmorcMemorial Hermann Northeast HospitalComment on above:Performed By: #### CHICHOA, 1744-2, 1920-06, [facility], 84256-0 #### [facility] ([id number]) [address] [address], [address] [place], [place] [address]KSzl 60-65-5916PAVplhydkl Office Cardiology Clinic Note Reason for cardiology [...] EKG today 11/10/2024 s (more content not included)...NormalUnUniversity Hospitals Conneaut Medical CenterOffice Visiton 70-44-0437Qvtkru-up [id number] Margy Oakes Kiran 1945 F Date Provider Department Center 11/10/2024 50771-XONTIIKIMMY ROSADO CARD [facility] Family History Problem Relation Age of Onset Cancer Mother Cancer Father Cancer Brother Family Status - Relation Status Age at Mother Father Brother Level of Service:85083 [place] OFFICE/OUTPATIENT NEW HIGH [facility] 60 MINUTES Reason for Visit and Comments: Hypertension [904202] Chest Pain [438316] - Sometimes gets chest pain at rest. Hyperlipidemia [182] Coronary Artery Disease [187] - Does not take daily aspirin. She does ride her stationary bike about 10 miles every day. Shortness of Breath [765816] - Gets very SOB with exertion and has to stop and take a rest at times. Palpitations [834537] - A little bit Dizziness [774608]NormalUnUniversity Hospitals Conneaut Medical CenterNo Panel Information on 66-17-9222Qzscn Crispin Rios NP 08/28/2024 11:52 AM L Inj/Asp: R knee on 08/27/2024 12:21 PM Indications: pain Details: 21 G needle, anterolateral approach Medications: 40 mg methylPREDNISolone acetate 40 MG/ML Outcome: tolerated well, no immediate complications Site cleaned with isopropyl alcohol Procedure, treatment alternatives, risks and benefits explained, specific risks discussed. Consent was given by the patient. [facility] Knee - right 1 or 2 Viewson 80-51-8559Xfdontz Result: 08/27/2024: Standing AP and LAT of the right knee demonstrates lateral joint space narrowing with valgus alignment. There is sclerosis noted to medial and lateral tibial plateau. Impression: Left knee osteoarthritis with valgus alignment. Lavinia Rios LOAN REVIEWER-[facility] HospitalRadiology Study observation (narrative)[facility] Knee - right 1 or 2 ViewsOrdered By: Jr. Jeffries on 44-30-5645MHWTResearch Medical Center-Brookside Campus Work Phone: XR ANKLE ABHISHEK MIN 3 VIEWSon 87-22-3761LU ANKLE ABHISHEK MIN 3 VIEWSEXAMINATION: XR ANKLE [...] Electronically authenticated by: RAMSES GONGORA Date: 2022-02-01 11:16[facility] CenterCT ANKLE RT WO CONon 86-05-2059AZ ANKLE RT WO CONEXAMINATION: CT ANKLE RT [...] Electronically authenticated by: NORBERTO IVAN Date: 2021-12-19 11:38[facility] CenterXR ANKLE ABHISHEK MIN 3 VIEWSon 02-08-5408NM ANKLE ABHISHEK MIN 3 VIEWS EXAMINATION: XR [...] Electronically authenticated by: NORBERTO IVAN Date: 2021-11-02 16:25[facility] CenterCardiovascular Lab Reporton 37-64-8873Wxtkbjxihjahrq Lab Report [facility]: [id number] Physician: Pepe Barraza of [facility] Medicine Service Date: 05/29/2019 Division of Birthdate: 1945 Cardiology Room #: [facility] [place] [address] Cardiovascular Laboratory Report INDICATION: The patient is [...] signed informed consent. She was brought to laboratory geneticist in a fasting state. The right groin area was prepped and draped in usual fashion. Using micropuncture technique, the right common femoral artery was accessed. The inner cannula was advanced. Limited femoral angiography was performed followed by upsizing to a 6-Jamaican x 11 cm sheath. Access was obtained using the same technique in the right common femoral vein and a 6-Jamaican x 11 cm sheath was placed. A 6-Jamaican Pena catheter was used for right heart catheterization with measurement of pressures and calculation of cardiac output using the estimated Anila method. Pena catheter was removed. Bilateral selective coronary angiography was then performed using 6-Jamaican JL4 and JR4 diagnostic catheters. Catheters were removed. Procedure was concluded. The right femoral arteriotomy was managed with a 6-Jamaican Angio-Seal device with good hemostasis. The access [...] Chavez M.D. Date Trans: 05/29/2019 10:55 P/mmo DN_JN:[id number] cc: uLcia Esteban M.D. [address] [facility] [address]VxikxbBfmHolzer Health SystemOtheron 01-18-1999 CONVERTED ELECTRONIC SIGNATURENELIA VICKIE ZABALA HEAD ANIMAL TRAINER (Electronic signature on file) Final Signed Out: 01/18/1999 16:25 [facility] HospitalCONVERTED FINAL DIAGNOSISSPECIMEN ADEQUACY SATISFACTORY FOR CYTOLOGIC EVALUATION BUT LIMITED BY: NO ENDOCERVICAL COMPONENTS. GENERAL CATEGORIZATION WITHIN NORMAL LIMITS HORMONAL EVALUATION HORMONAL PATTERN COMPATIBLE WITH AGE AND HISTORY [facility] HospitalCONVERTED ORDERING PROVIDEROrdering Provider: SHEA REYES [facility] HospitalCONVERTED PAP DISCLAIMERThe Pap test serves as a screening tool for early detection of cervical cancer. The Pap test does not represent a final diagnostic test for cervical cancer. Furthermore, the Pap test was not designed to screen for other malignancies (endometrial, ovarian cancer, etc....). False negatives and false positives have occurred. If clinically indicated, further patient evaluation is recommended. [facility] Vital Signs Date TimeVital SignValuePerforming FureaykzkOfohwoxq81-88-0865 09:29-0400Body yxioel136.5 cmMattfallon DAVILA Work Phone: [phone] Center-Brookside CampusGckpkyrdws36-98-9937 09:29-0400Body mass index (BMI) [Ratio]32.92 kg/g4Zrbhyjbosbaldo DAVILA Work Phone: [phone] HospitalCawwrgtycy28-43-4261 09:29-0400Body .65 kgMattfallon DAVILA Work Phone: [facility]-Brookside CampusNhbaqeiiys19-74-7705 14:35-0400Diastolic blood juckzdbz04 mm[Hg]Shyam Crowell MD Work Phone: [facility]09-08-2025 14:35-0400 Heart rate57 /minShyam Crowell MD Work Phone: [phone] [place], [place] 6746009-08-2025 14:35-0400 Respiratory rate16 /minShyam Crowell MD Work Phone: [phone]09-08-2025 14:35-0400 SaO2% (BldA) [Mass fraction]96 %Shyam Crowell MD Work Phone: [phone]09-08-2025 14:35-0400 Systolic blood mqzfyndw474 mm[Hg]Shyam Crowell MD Work Phone: [phone] [place], [place] 7509209-08-2025 12:47-0400 Body bpukxo533.48 cmAalex Crowell MD Work Phone: [phone])[address] [place], [place] 1755409-08-2025 12:47-0400 Body qmsjuv05.19 kgShyam Crowell MD Work Phone: [phone])[address]08-20-2025 13:16-0400 Body tliylc062.48 cmLucia Esteban MD Work Phone: [phone])[address]08-20-2025 13:16-0400 Body savxtibfooi28.7 [degF]Lucia Esteban MD Work Phone: [phone] [place], [place] 7055608-20-2025 13:16-0400 Body .2 kgLucia Esteban MD Work Phone: [phone] [place], [place] 7055608-20-2025 13:16-0400 Diastolic blood hrepjycq02 mm[Hg]Lucia Esteban MD Work Phone: [phone] [place], [place] 7055608-20-2025 13:16-0400 Heart rate60 /minLucia Esteban MD Work Phone: [phone] [place], [place] 7055608-20-2025 13:16-0400 Respiratory rate18 /minLucia Esteban MD Work Phone: [phone] [place], [place] 7055608-20-2025 13:16-0400 SaO2% (BldA) [Mass fraction]94 %Lucia Etseban MD Work Phone: [phone])[address]31 [address]08-20-2025 13:16-0400 Systolic blood wnxhqmuv135 mm[Hg]Lucia Esteban MD Work Phone: [phone])[address]31 [address]08-20-2025 12:55-0400 Body qdbyez319.48 cmLucia Esteban MD Work Phone: [phone] [place], [place] 3234408-20-2025 12:55-0400 Body zxpwty66.73 kgLucia Esteban MD Work Phone: [phone] [place], [place] 3234408-20-2025 12:55-0400 Diastolic blood dsgeekmj70 mm[Hg]Lucia Esteban MD Work Phone: [phone])[address]08-20-2025 12:55-0400 Heart rate66 /minLucia Esteban MD Work Phone: [phone])[address] [place], [place] 3234408-20-2025 12:55-0400 Respiratory rate18 /minLucia Esteban MD Work Phone: [phone])[address]08-20-2025 12:55-0400 SaO2% (BldA) [Mass fraction]97 %Lucia Esteban MD Work Phone: [phone])[address]08-20-2025 12:55-0400 Systolic blood zglermqb319 mm[Hg]Lucia Esteban MD Work Phone: [phone])[address]07-24-2025 08:36-0400 Body .48 cmLucia Esteban MD Work Phone: [phone])[address]07-24-2025 08:36-0400 Body mass index (BMI) [Ratio]32.2 kg/s7BuzhrfyLucia Esteban MD Work Phone: [phone] [address]07-24-2025 08:36-0400 Body leraabupvcm95 [degF]Lucia Estebna MD Work Phone: [facility]07-24-2025 08:36-0400 Body rgpriu77 kgLucia Esteban MD Work Phone: [phone] [place], [place] [address]07-24-2025 08:36-0400 Diastolic blood rrtmasyb27 mm[Hg]Lucia Esteban MD Work Phone: 1(266)[phone] [place], [place] [address]07-24-2025 08:36-0400 Heart rate55 /minLucia Esteban MD Work Phone: [phone] [place], [place] 7055607-24-2025 08:36-0400 Respiratory rate18 /minLucia Esteban MD Work Phone: [phone] [place], [place] 7055607-24-2025 08:36-0400 Systolic blood bjruhrxb077 mm[Hg]Lucia Esteban MD Work Phone: 1([phone] [place], [place] [address]07-10-2025 14:25-0400 Body qwcgob138.4 cmSmelissa Thapa DO Work Phone: [facility]07-10-2025 14:25-0400Body mass index (BMI) [Ratio]33.98 kg/u8VddjjpMaría Thapa DO Work Phone: [facility]07-10-2025 14:25-0400Body bnsnti78.93 kgMaría Thapa DO Work Phone: [facility] Lzcoyu11-43-1542 14:25-0400Diastolic blood lwmcpydr92 mm[Hg]María Thapa DO Work Phone: [facility] Qkecyr75-81-6644 14:25-0400Heart rate 60 /minSmelissa Thapa DO Work Phone: [facility]07-10-2025 14:25-2523BxM0% (BldA) [Mass fraction]96 %María Thapa DO Work Phone: [facility]07-10-2025 14:25-0400Systolic blood mxstxtzo699 mm[Hg]María Thapa DO Work Phone: [facility]06-05-2025 14:58-0400Body adwent294.48 cmStefani Quezada MD Work Phone: [phone]06-05-2025 14:58-0400 Body mass index (BMI) [Ratio]31.8 kg/h3VeckpiStefani Quezada MD Work Phone: [phone]06-05-2025 14:58-0400 Body twqltbfiqht80.9 [degF]Stefani Quezada MD Work Phone: [phone]06-05-2025 14:58-0400 Body yuchrc32.98 kgStefani Quezada MD Work Phone: [phone]06-05-2025 14:58-0400 Diastolic blood pieeymme81 mm[Hg]Stefani Quezada MD Work Phone: 1(216)[address]06-05-2025 14:58-0400 Heart rate56 /Dany Quezada MD Work Phone: 1(216)[phone]06-05-2025 14:58-0400 Respiratory rate18 /Dany Quezada MD Work Phone: 1(216)[address]06-05-2025 14:58-0400 SaO2% (BldA) [Mass fraction]96 %Stefani Quezada MD Work Phone: 1(216)[phone]06-05-2025 14:58-0400 Systolic blood dvanaogs104 mm[Hg]Stefani Quezada MD Work Phone: 1(216)[address]04-10-2025 10:51-0400 Body myxaqr003.4 cmSmelissa Thapa DO Work Phone: [facility]04-10-2025 10:51-0400Body mass index (BMI) [Ratio]34.98 kg/h5CzohjnMaría Thapa DO Work Phone: [facility]04-10-2025 10:51-0400Body aioixd60.24 kgMaría Thapa DO Work Phone: [facility]04-10-2025 10:51-0400Diastolic blood bxtgacjn70 mm[Hg]María Thapa DO Work Phone: [facility]04-10-2025 10:51-0400Heart rate 60 /minSmelissa Thapa DO Work Phone: [facility]04-10-2025 10:51-1564NkQ2% (BldA) [Mass fraction]98 %María Thapa DO Work Phone: [facility]04-10-2025 10:51-0400Systolic blood mrosixum571 mm[Hg]María Thapa DO Work Phone: [facility]02-10-2025 09:09-0500Body unqjwi545.[address]02-10-2025 09:09-0500Body mass index (BMI) [Ratio]32.92 kg/a8Xlrci[address]02-10-2025 09:09-0500Body fiofow92.[address]01-30-2025 12:08-0500Body height 157.5 cmSmelissa Thapa DO Work Phone: [facility]01-30-2025 12:08-0500Body mass index (BMI) [Ratio]33 kg/q6AcjotvMaría Thapa DO Work Phone: [facility]01-30-2025 12:08-0500Body pxpekq32.83 kgMaría Thapa DO Work Phone: [facility]01-30-2025 12:08-0500Diastolic blood ljumnysp67 mm[Hg]María Thapa DO Work Phone: [facility]01-30-2025 12:08-0500Heart rate 53 /minSmelissa Thapa DO Work Phone: [facility]01-30-2025 12:08-9543QrK7% (BldA) [Mass fraction]99 %María Thapa DO Work Phone: [facility]01-30-2025 12:08-0500Systolic blood emplqsen817 mm[Hg]María Thapa DO Work Phone: [facility]03-01-2024 09:17-0500Body ejihcm772.5 cmIgnacio Augustine MD Work Phone: [facility]03-01-2024 09:17-0500Body mass index (BMI) [Ratio]32.19 kg/e9GiodrdmIgnacio Augustine MD Work Phone: [facility]03-01-2024 09:17-0500Body qqljha70.83 kgIgnacio Augustine MD Work Phone: [facility] Encounters Encounter DateEncounter TypeCare ProviderFacilityStart: 09-23-2025 End: 20-93-4208Oqhfjo Casey DAVILA Work Phone: [facility]Start: 09-23-2025 End: 74-16-9782Xepbnqlydia DAVILA Work Phone: [facility]icsStart: 09-23-2025 End: 20-79-6746Cfdqde outpatient visit 25 minutesMattfallon DAVILA Work Phone: [facility] OrthopaedicsComment on above:Left hip pain (Primary Dx); Arthritis of right knee; Chronic pain of right knee; Trochanteric bursitis of left hipStart: 09-23-2025 End: 89-48-2086yhjdvayarkFDKMFBB J MEYERNot AvailableStart: 71-07-8266bsvvtmokxu [facility]ONDA [facility] HospitalStart: 09-02-2025 End: 04-49-4179Qkfjuh Casey DAVILA Work Phone: [facility]edicsStart: 09-02-2025 End: 58-59-0454Micpbj flowsheetBrannon DAVILA Work Phone: [facility] OrthopaedicsStart: 09-02-2025 End: 44-11-3649maplfsxqxoKEUMOAS J MEYERNot AvailableStart: 09-02-2025 End: 14-91-3882Vfsqjq outpatient visit 15 minutesMaosbaldo DAVILA Work Phone: NOJohnson [facility] Hospital OrthopaedicsComment on above:Left hip pain (Primary Dx); Trochanteric bursitis of left hipStart: 98-03-6995tfzykkjveuJCKZXQ [facility]tart: 07-20-2025 End: 58-64-9798lwcyinzriyCkbvlqwkx L LyFacility:[facility] Centertart: 53-91-1616Qif-patient / Non-visitCatherine L Ly DO-[facility] Gastro Work Phone: Start: 07-01-2025 End: 04-57-8261Pmwrinaur department patient visitHealina Esteban MD Work Phone: [phone]-Cmjgeuify Room Work Phone: Start: 07-01-2025 End: 73-35-4180Rrmhdnvay to same day surgery centerCatherine L Ly DO-[facility] Work Phone: Start: 07-01-2025 End: 78-17-8497sqztsobcwiEajbjqa A Haynes MD Work Phone: [facility] Work Phone: Start: 06-16-2025 End: 09-27-4103lqownhtwkdQzhdfwcBobby Esteban MD Work Phone: [facility] Work Phone: Start: 06-16-2025 End: 15-38-3713Jdiscssd Sonia Vazquez MD-[facility] Start: 06-10-2025 End: 28-74-3301rqnqyrviplNUBGP [facility]ertart: 06-04-2025 End: 28-28-3660upnbdoglrfIrycqom A Haynes MD Work Phone: [facility] Work Phone: Start: 06-04-2025 End: 90-54-3860Nqkzbjq encounter procedureShyam Crowell MD-[facility] Work Phone: Start: 05-28-2025 End: 55-76-7787Aftwhudfx department patient visitHEATHER A [facility]ertart: 05-24-2025 End: 29-45-4476Udryptbfk department patient visitHEATHER A [facility] Centertart: 05-21-2025 End: 48-63-4821Ysdfsy outpatient visit 25 minutesMaría Beck [facility]San [facility] Work Phone: [facility] Pulmonary/Sleep MedicineComment on above:Pulmonary nodules/lesions, multiple (Primary Dx); Moderate persistent asthma without complicationStart: 05-21-2025 End: 06-29-2700rnoueudphuDGAETW [facility] Ambulatory PPGStart: 04-23-2025 End: 06-32-2346Goqjcl OnlyScanning Provider ExternalProMedica Physicians Pulmonary/Sleep MedicineStart: 04-16-2025 End: 57-05-7088clksaoqupuYpojr katieHol[facility] Work Phone: Start: 04-16-2025 End: 82-77-0106Wifpwynp ReferredStefani Quezada MD Work Phone: [facility]-LAB [facility] Spec [facility]ospStart: 04-16-2025 End: 64-46-5040dfjlpoicngQtnneb Diab MD Work Phone: [facility] Work Phone: Start: 04-16-2025 End: 18-68-5527Meunwuv encounter Lon Quezada MD Work Phone: [facility] Work Phone: Start: 04-14-2025 End: 39-64-2046wabtsmqateWlmwwgc [facility] Work Phone: Start: 04-14-2025 End: 76-45-8996Jdcdcsgj ReferredStefani Quezada MD Work Phone: [facility]-LAB Path Spec [facility]ospStart: 03-30-2025 End: 28-12-8739Atdwqz-up encounterMaosbaldo DAVILA Work Phone: [facility] ORTHOPAEDICSStart: 03-30-2025 End: 21-88-5503Xuzeggwxc department patient visitHEATHER A [facility]ca [facility] HospitalStart: 03-28-2025 End: 06-09-6693pqldxufxplRfwntl A DiabFacility:[facility] Start: 03-28-2025 End: 52-02-3794Jzvrvmyj ReferredStefani Quezada MD Work Phone: [facility]-LAB Path Spec [facility]ospStart: 03-28-2025 End: 48-28-7662Peazkafhb Result EncounterMaosbaldo DAVILA Work Phone: n[facility] External Department UnsolicitedStart: 03-28-2025 End: 21-65-4048Jirhpzmog Result EncounterMaosbaldo DAVILA Work Phone: n[facility] External Department UnsolicitedStart: 02-20-2025 End: 43-52-5646Pwtkdb OnlyMaría Thapa DO Work Phone: [facility] Pulmonary/Sleep MedicineComment on above:Moderate persistent asthma without complication (Primary Dx)Start: 02-19-2025 End: 47-80-4822Qpmawq outpatient visit 25 minutesMaría Thapa DO Work Phone: [facility] Pulmonary/Sleep MedicineComment on above:Pulmonary nodules/lesions, multiple (Primary Dx); Dyspnea on exertion; Moderate persistent asthma without complicationStart: 02-19-2025 End: 86-47-0191wycntukagtOHCFBY M [facility] PPGStart: 02-12-2025 End: 10-98-7910Fplxzutzj encounterSeva [facility] Pulmonary/Sleep MedicineStart: 02-06-2025 End: 95-25-0630Cprttm flowsKim DAVILA Work Phone: [facility] ORTHOPAEDICSStart: 02-06-2025 End: 38-65-2277Snhrda flowsKim DAVILA Work Phone: [facility] FB ORTHOPAEDICSStart: 02-06-2025 End: 17-88-0706Rhogfr outpatient visit 15 minutesMaosbaldo DAVILA Work Phone: [facility] FB ORTHOPAEDICSComment on above:Acute pain of right knee (Primary Dx); Arthritis of right kneeStart: 02-06-2025 End: 01-74-1274rfyxizkzemVHROBPO J MEYERNot AvailableStart: 01-21-2025 End: 74-42-7670caugeapiauXVDYHWVUMedicine Harrison Community Hospitaltart: 12-25-2024 End: 47-01-8730Rtytlxiqna and management of inpatientTAMER S SAID AHMEDProKettering Health [facility] Township HospitalStart: 12-22-2024 End: 13-94-8258Nxyatdsapq and management of inpatientHEATHER A HAYNESUniversity Hospitals [facility] Center HospitalStart: 12-22-2024 End: 24-89-7500Yjmhzfpdc to establishmentMetro Pat Phone Call Provider 3 [facility] On [facility]tart: 12-16-2024 End: 67-00-7316Inxqiacur encounterFranca Regalado RN Work Phone: [facility] Pulmonary/Sleep MedicineStart: 51-01-4328Nqhiyoqqy for other preprocedural examinationSThe MetroHealth Systemtart: 12-12-2024 End: 45-95-7513fegypwcabrHZRJDA M [facility] Start: 12-11-2024 End: 14-92-3078Udvnzky encounter statusConstance [facility] Start: 12-11-2024 End: 25-63-0338HsyxrqNepocb Kiran Elier DO Work Phone: [facility] Pulmonary/Sleep MedicineStart: 12-11-2024 End: 56-91-8861Bjtrdewwv encounterConstance [facility] Physicians Pulmonary/Sleep MedicineStart: 12-11-2024 End: 17-88-2312iumncgfooeXNUXUCMonroe County Hospital Ambulatory PPGStart: 12-11-2024 End: 98-38-6832Uusarx outpatient new 60 minutesMaría Beck Elier DO Work Phone: [facility] Pulmonary/Sleep MedicineComment on above:Pulmonary nodules/lesions, multiple (Primary Dx); Pulmonary noduleStart: 12-09-2024 End: 48-89-7455hlukjjeinlRLGOSProvidence Hospitaltart: 14-37-5352wsmdeaeuxvKCMZAWJDallas Regional Medical Center Ambulatory PPGStart: 98-07-2648ledowylxxxRONTPASNovant Health [facility] Ambulatory PPGStart: 11-13-2024 End: 67-94-3205xaoxxjsicuMIQLQSumma Health Barberton Campustart: 11-13-2024 Encounter for other preprocedural examinationHEATHER [facility] Centertart: 11-10-2024 End: 83-09-2073molefymslvXSQSSProvidence Hospitaltart: 10-24-2024 End: 87-95-2046hwlybzgavnTHMCOFDWhite Hospitaltart: 08-27-2024 End: 89-51-3251Zxbvyg Lucas iRos NP Work Phone: [facility]THOPAEDICSStart: 08-27-2024 End: 13-59-3048Dodgtylydia Rios NP Work Phone: [facility] FB ORTHOPAEDICSStart: 08-27-2024 End: 69-18-6469Ivzcbw outpatient visit 25 minutesLavinia Rios NP Work Phone: [facility] FB ORTHOPAEDICSComment on above:Primary osteoarthritis of right knee (Primary Dx); Right knee pain, unspecified chronicityStart: 01-11-2024 End: 93-82-8193Yqzxuu outpatient visit 15 minutesMicnolvia Augustine MD Work Phone: [facility] NeuroSurgeryComment on above: Neuropathy (Primary Dx)Start: 57-26-8676Oohwkurmx encounterAntoinelynn Brown LPNPEsmer Physicians NeuroSurgeryComment on above:MRIStart: 05-31-2022 End: 47-16-7076zvrctoroyrSI LUCIA A HAYNESFacility:I4Xzwnx: 05-02-2022 End: 99-83-2328nlwqtqejqhHU BERNABE S KUMARFacility:S5Lfdbj: 04-18-2022 End: 42-65-6295dlipuijhxzTM BERNABE S KUMARFacility:N3Knsqg: 04-04-2022 End: 42-36-7745lsualagzjyGMNYHUPN CULLENFacility:A7Obpcl: 03-28-2022 End: 64-47-4244kfauxveqwwAJ BERNABE S KUMARFacility:V2Ayuzo: 03-07-2022 End: 08-56-5174sqvmalvijrWA BERNABE S KUMARFacility:F5Bjark: 02-28-2022 End: 83-39-1771phuiwsmlucFO BERNABE S KUMARFacility:M6Oqcpz: 02-14-2022 End: 86-63-2856rewuznlaauXD LUCIA A HAYNESFacility:C6Qaken: 02-01-2022 End: 99-07-2005loflulykyfCN LUCIA A HAYNESFacility:X7Xcvtg: 12-19-2021 End: 64-02-1154wkkfwnayaiXH LUCIA A HAYNESFacility:M1Ybwjp: 11-02-2021 End: 86-90-2814lphgbkqoaiDO LUCIA A HAYNESFacility:J7Bmiqh: 05-29-2019 End: 89-48-5827Ackwvnc encounter procedurePROVIDER UNKNOWNFacility:UTMCStart: 01-03-1999 End: 90-42-4609Yyaxxqi encounter procedureConversion [facility] Start: 98-27-2147Loqqmch OnlyConversion [facility] Procedures DateProcedureProcedure DetailPerforming ClinicianStart: 38-86-1238Rnfavwvwetfmho aspir&/inj major jt/bursa w/o usBrannon DAVILA Work Phone: Start: 16-59-9396Kkfnwbyiglmcxw aspir&/inj major jt/bursa w/o usMattfallon DAVILA Work Phone: Start: 97-83-4012Vqtaj hip unilateral with pelvis 2-3 viewsBrannon DAVILA Work Phone: Start: 20-63-8128GI of head without contrastLucia Esteban MD Work Phone: start: 53-23-1591Hchhr cultureLucia Esteban MD Work Phone: start: 58-83-3616Pxexi Refugio Esteban MD Work Phone: start: 65-87-8341Vdayt April Quezada MD Work Phone: Start: 39-95-4881NQXPU CULTURE - FRBrannon DAVILA Work Phone: Start: 62-07-3851Qyfpu April Quezada MD Work Phone: Start: 02-47-5982Jdjilo-up visitFollow-upSMELISSA Beck ELSTONStart: 89-23-6982HQIBHAAUN FUNCTION TESTScanning Provider ExternalStart: 62-57-1174Nscmpjxtvuycin aspir&/inj major jt/bursa w/o usMattfallon DAVILA Work Phone: Start: 09-45-6183Brcboygmgdkdxa aspir&/inj major jt/bursa w/o usMiriamcrispin Rios SECURITY OPERATIONS CENTER ANALYST Work Phone: Start: 07-36-8795Oinidjyflj examination knee 1/2 views Lavinia Rios SECURITY OPERATIONS CENTER ANALYST Work Phone: Start: 77-64-5252TTVXMOCUD CYTOLOGY GYNConversion [place] Plan of Treatment DateCare ActivityDetailAuthorStart: 73-19-5625Hswxiyz ScreeningTobacco Screening [facility] SystemStart: 29-24-2324Avtxodx ScreeningTobacco Screening [facility] SystemStart: 12-23-2025 End: 14-96-8700Ssmdszg encounter piuuqbyds93/11/2026 10:30 AM EST Office Visit [facility] [address] [place] [address] Brannon Carranza PA [address] [place] [address] [facility] OrthopaedicsStart: 64-74-9625Nizkatv Screening Tobacco ScreeningFormerly [facility] Hospitaltart: 09-23-2025 End: 35-53-3668Gisyhik encounter procedureNOMS Newhall OrthopaedicsComment on above:Left hip pain (Primary Dx)Start: 14-77-1223IardseusrUniversity Hospitals Parma Medical Centertart: 68-50-8078HQVDQ-19 Vaccine ( season)COVID-19 Vaccine ( season)[facility] CampusStart: 35-19-3120Suirgudhs vaccinationBethesda North Hospital SystemStart: 22-38-5616UdmkxodtayxdyyxkssxaiqmdzkZZ EGD (Not Applicable) [facility] Centertart: 30-58-5977GlsvajuyuUniversity Hospitals Parma Medical Centertart: 28-65-9676Rafvvhxw identified in Urine by CultureUrine Culture [facility] Centertart: 55-88-8329Nccly cultureUniversity Hospitals Parma Medical Centertart: 05-21-2025 End: 54-69-1224Lcomvdn encounter dilkkacfx57/10/2025 2:30 PM EDT Office Visit [facility] [address] [place] [address] María Thapa, DO [address] [address] [facility] Pulmonary/Sleep MedicineStart: 32-17-7362Rksvs [facility] Hospitaltart: 81-13-6537Khehpzzf identified in Urine by CultureUrine Culture [facility] Centertart: 82-49-7407Sapzbggv identified in Urine by CultureUrine CultureUniversity Hospitals Parma Medical Centertart: 12-23-8954Wuhso [facility] Hospitaltart: 02-19-2025 End: 56-93-8721Kludyuq encounter fivxodpen73/10/2025 10:45 AM EDT Office Visit [facility] [address] [place] [address] María Thapa, DO [address] [address] [facility] Pulmonary/Sleep MedicineStart: 02-06-2025 End: 36-79-6661Nukunto encounter fitaeabxe82/28/2025 11:30 AM EDT Office Visit [facility] [address] [place] [address] Brannon Carranza, PA [address] [address] Acute pain of right knee (Primary Dx)[facility] Comment on above:Acute pain of right knee (Primary Dx)Start: 01-06-2025 End: 42-52-6307Cpilwevzp to same day surgery pwtnxd1201/06/2025 1:00 PM EST - 01/06/2025 2:30 PM EST Surgery [facility] - Endoscopy [address] [place] [address] María Thapa, DO [address] [address] ION ROBOTIC BRONCOSCOPY [21457 (CPT )][facility] EndoscopyComment on above: ION ROBOTIC BRONCOSCOPY [72452 (CPT )]Start: 01-06-2025 End: 51-97-9132Ednuquz incl fluor gdnce dx w/cell washg spxTOLEDO ENDOSCOPY Start: 18-28-9252Snlbluqqhk hospital visit by zeegwzmfj91/25/2025 1:00 PM EST Hospital Encounter [facility] [address] [facility] [place] [address] María Thapa DO [address] [facility] [address] [place] [address] [facility] EndoscopyStart: 12-25-2024 End: 49-07-7865Dfwryyasm to same day surgery mdrvox4812/25/2024 1:15 PM EST - 12/25/2024 3:00 PM EST Surgery [facility] [address] [place] [place] [place] [address] Isidra Saeed MD [address] [address] ION ROBOTIC BRONCOSCOPY [19980 (CPT )][facility] EndoscopyComment on above: ION ROBOTIC BRONCOSCOPY [74630 (CPT )]Start: 12-25-2024 End: 21-42-3195Zbetdav incl fluor gdnce dx w/cell washg spxTOLEDO ENDOSCOPY Start: 15-94-8417Eczpsxhksc hospital visit by hlhiksjwv77/13/2025 1:15 PM EST Hospital Encounter [facility] [address] [facility] [place] [address] Isidra Saeed MD [address] [facility], [address] [address] [facility] - EndoscopyStart: 12-22-2024 End: 85-28-7235Ghlcpsiyu to gqyeaugkhhfxb11/10/2025 8:30 AM EST Support Visit [facility] On [facility] [address] [address]WuiBottuz [facility] On [facility] Start: 12-12-2024 End: 06-21-4402Eutbztv encounter gcucykitx23/31/2025 9:30 AM EST Appointment [facility] - CT [address] [place] [address] María Thapa, DO [address] [address] [facility] CTStart: 12-11-2024 End: 93-57-1832KD Chest limited WO contrastCT Ion Chest without contrast Imaging STAT Pulmonary nodules/lesions, multiple Expected: 12/11/2024, Expires: 12/11/2025[facility] Work Phone: Comment on above:Expected: 12/11/2024, Expires: 12/11/2025Start: 22-52-6257Eslwl BMI ScreeningAdult BMI ScreeningBethesda North Hospital SystemStart: 61-15-2947Mgsroxa ScreeningTobacco ScreeningProAultman Orrville Hospital SystemStart: 80-35-4895XSGMN-19 Vaccine ( season)COVID-19 Vaccine ( season)[facility] SystemStart: 29-24-4370Qczlihvbk vaccination Influenza Vaccine (#1)[facility] HealthcareStart: 11-09-2023 End: 15-98-3202FQ Lumbar spine WO contrastMR lumbar spine without contrast Imaging Routine Neuropathy Expected: 11/09/2023, Expires: 11/09/2024[facility] Work Phone: Comment on above:Expected: 11/09/2023, Expires: 11/09/2024Start: 75-83-1877GGMKB-19 Vaccine ( season)COVID-19 Vaccine ( season)[facility] Hospitaltart: 97-45-7543Kvgwmmddx vaccinationInfluenza VaccineFormerly [facility], [facility] Hospitaltart: 01-32-7002jmsayeepcm AmbulatoryFacility:J6Ldbxk: 77-24-6476Wmwpppvnx vaccinationINFLUENZA (#1) [facility]tart: 37-48-3259Kvlwwokqwmzo Vaccine: 65+ Years (2 of 2 - PCV) Pneumococcal Vaccine: 65+ Years (2 of 2 - PCV)[facility] HealthcareStart: 07-19-2016 Administration of varicella zoster vaccineZoster (Shingles) Vaccine (2 of 3) [facility] Hospitaltart: 18-82-3271ISLDKBS DIRECTIVE DISCUSSIONADVANCE DIRECTIVE DISCUSSIONMartins Ferry Hospitaltart: 99-42-2648WKGH DENSITYBONE DENSITY [facility] Hospitaltart: 24-46-2215Rzwb Risk ScreeningFall Risk ScreeningFormerly [facility], [facility] Hospitaltart: 91-97-6063ZXTJMSKJX AGE 65 AND OVER WITH 5YR LOOKBACK (#1) PNEUMOVAX AGE 65 AND OVER WITH 5YR LOOKBACK (#1)[facility] Hospitaltart: 62-34-2345CTITRUXF VACCINE (1 of 2)SHINGRIX VACCINE (1 of 2)[facility] Start: 99-05-6173Ommwqnyhshzd screeningCOLORECTAL CANCER SCREENING,SEE MODIFIER [facility] Hospitaltart: 53-03-0315QUGCDFMV SCREENDIABETES SCREENOhio Valley Surgical Hospital Start: 48-87-0887LKBMW SCREENLIPID SCREENMartins Ferry Hospitaltart: 01-18-1964 DTaP,Tdap and Td Vaccines (1 - Tdap)DTaP,Tdap and Td Vaccines (1 - Tdap) [facility] Hospitaltart: 17-13-4810Fmlco microalbumin profileDTAP,TDAP,TD (1 - Tdap)[facility] Hospitaltart: 56-02-7751Yafle BMI Follow Up PlanAdult BMI Follow Up PlanFormerly [facility], [facility] Hospitaltart: 81-08-3812OOBTIZJQW C SCREENING HEPATITIS C SCREENINGMartins Ferry Hospitaltart: 53-06-5053Xwrwreganw Screening Depression ScreeningFormerly [facility], [facility] Hospitaltart: 1944Medicare Annual Wellness VisitMedicare Annual Wellness VisitProAultman Orrville Hospital SystemComplement C3 [Mass/volume] in Serum or [facility] HospitalComplement C4 [Mass/volume] in Serum or [facility] End: 02-49-7410Dzyknberex countEosinophil count Lab Routine Moderate persistent asthma without complication 1 Occurrences epnembdb93/10/2025 until 02/19/2026 [facility] SystemComment on above:1 Occurrences starting 02/19/2025 until 02/19/2026Patient EducationSt. [facility] Work Phone: Patient referralSt. [facility] Work Phone: Renal function 1999 panel - Serum or [facility] HospitalRenal function 1999 panel - Serum or [facility] End: 22-73-2477Lyujtqwscxd allergy panelRespiratory allergy panel Lab Routine Moderate persistent asthma without complication 1 Occurrencesstarting 02/19/2025 until 02/19/2026[facility] Work Phone: Comment on above:1 Occurrences starting 02/19/2025 until 02/19/2026URINE CULTURE - [facility] [place] [facility] [place] Lab Routine 03/28/2025 5:58 PM EDUNIVERSITY [facility] Healthcare Work Phone: US Kidney - bilateralHalifax Health [facility] Immunizations Immunization DateImmunizationNotesCare LcvjccauWjdspzdu60-39-7746tmjuxrocq virus vaccine, unspecified formulationSeva Velazquez [facility] 45-16-4244gwedcpuyx virus vaccine, unspecified formulationAntoinette [facility]07-13-2016zoster vaccine, unspecified formulation Estrella [facility] Payers DatePayer CategoryPayerPolicy [id number]-vpu 02-46-9034Ocblcjc Care Other (unspecified)[facility] [id number] Health Insurance [id number] 2009Medicare [id number] [id number] [id number] 2.0.1.634385.3.57[id number] 2.0.1.445306.3.57[id number] 2.0.1.114754.3.57[id number] 2.0.1.693131.3.57[id number] 2.840.1.620290.3.579.[id number] 2.840.1.504428.3.579.[id number] 2.840.1.036325.3.579.2.95063-11-7996Qnzupxr4745500 2.840.1.431638.3.579.2.79204-82-3156Lowizoo4891745 2.16840.1.789705.3.579.2.36998-26-7148Dgydems9791240 2.16840.1.826292.3.579.2.74954-32-6948Izcjfgz4627285 2.16840.1.830380.3.579.2.56334-33-8625Wfxcbts4682908 2.16840.1.015917.3.579.2.13217-04-9530Qiyydzz0808559 2.0.1.915313.3.579.[id number] 2.0.1.828758.3.579.[id number] 2..1.527947.3.579.2.1214[id number] 2.840.1.953605.3.579.2.19[id number] 2.0.1.032376.3.579.2.59[id number] 2..1.566951.3.579.2.994562-41-0925Cfeezyx697354479 2.0.1.290988.3.579.2.103915-53-7071Abpdxzh106743449 2.0.1.985908.3.579.2.418523-13-8388Lbvqbhd178948363 2.840.1.522691.3.579.2.127444-22-2670Qpwugct544643088 2.840.1.224737.3.579.2.932971-75-5180Xfvfoxf084860140 2.0.1.237656.3.579.2.280260-24-9022Icblweu395199719 2.0.1.654083.3.579.2.624526-91-8713Uayuzbb566755371 2.0.1.344572.3.579.2.287204-69-3206Gioyvjk308493892 2..1.295486.3.579.2.605551-92-6572Uktpxeg420079895 2..1.042661.3.579.2.167703-97-3011Cqhgfab946379043 2..1.927552.3.579.2.084104-51-9653Xvzicwm67954047 2..1.899527.3.579.2.933143-36-5789Ahhdesg2098 2..1.644451.3.579.2.870668-31-4258Tsgecbh27379171 2..1.311620.3.579.2.685600-25-6913Skqcsxt77499178 2..1.073529.3.579.2.546780-03-6045Hceipwy6484209 2..1.227202.3.579.2.1259MedicareMedicare Outpatient270403894A az8mr3rk-6gx3-0ps7-7057-9tg5i14f9uc4Uelpnwy10329558 2..1.019086.3.579.2.439Gqikukk45552333 2..1.022642.3.579.2.531 Cggosnr93481055 2..1.811309.3.579.2.181Badogpa15847730 2..1.479609.3.579.2.957Rxfdcbz73543865 2.0.1.238637.3.579.2.531 Lwlzufu51078026 2.16.840.1.717122.3.579.2.027Uymdmwd35315235 2..840.1.942429.3.579.2.531 Social History DateTypeDetailFacilityTobacco smoking status NHISUnknown if ever smokedRudyard ClinicSex Assigned At BirthNot on fileMartins Ferry Hospitaltart: 04-16-2024 End: 27-48-7522Zetndxi smoking status NHISNever smoked tobaccoBethesda North Hospital SystemStart: 09-19-2023 End: 40-11-4990Cdhofvy use and exposureSmokeless tobacco non-userBethesda North Hospital SystemStart: 04-16-2024 End: 82-04-3141Vafxsipft beverage intakeCurrent drinker of alcohol (finding) [facility] SystemStart: 04-16-2024 End: 79-88-3053Hbxmifb of Social functionNOMS HealthcareStart: 04-16-2024 End: 91-00-2478Mkknoiz use panelNOKS HealthcareStart: 02-35-9965Mbz assigned at birthFeBelchertown State School for the Feeble-Minded HealthcareStart: 87-44-1810Kzpnix identityIdentifies as female gender (finding)[facility] SystemStart: 29-62-0174Nyqwsv orientation Heterosexual (finding)[facility] HealthcareStart: 22-89-1528Kubmustocj depression screening coinyrnvtx6ZllHgiiap Health SystemStart: 06-17-2015 End: 93-73-7599CscHunmhy (finding)[facility]odi HospitalTobacco smoking status NHISUnknown if ever smokedKettering Health Miamisburg Work Phone: Medical Equipment Procedure CodeEquipment CodeEquipment Original TextEquipment IdentifierDates [facility] [place] Radpq 40g [facility] [id number] - Sn/A - [id number]: 46-49-8102Dlgx Fem D Kn Lt Lpsflx Gndr Rpl [id number] - Sn/A - [id number]: 78-29-2331Rxc Artc 3-4 C-D 10mm Kn Fx - Sn/A - [id number]/$$[id number]/SN/A, [id number] FDAStart: 77-10-7439Gchk Ptlr 32mm Nxgn Alply Rpl [id number] - Sn/A - [id number] +[id number]/$$[id number]/SN/A, [id number] FDAStart: 66-81-8787Flj Tib 91g73n5sl Nxgn Kn Cmnt Rpl [id number] + [id number] - Sn/A - [id number]: 01-15-2018 Goals DatePatient GoalDesired Activity/State Clinical Notes 02-14-2022 to 09-23-2025 Note Date & PnmgFwwpHvohppsq91-67-0319 History of Present illness Narrative* LOLA Dickey [...] She has an upcoming bus trip to [place] and is requesting an injection today.The risks [...] requiring urgent evaluation. Visit was preformed using [employer]-aeroplane pilot speech recognition. documented in this encounterResearch Medical Center-Brookside [id number] History of Present illness Narrative* LOLA Dickey [...] requiring urgent evaluation. Visit was preformed using [employer]aeroplane pilot speech recognition. documented in this encounterResearch Medical Center-Brookside [id number] Radiology Diagnostic study [facility] [place] [address] [place] [address] CT Scan Report Signed Patient: Margy Oakes MR#: [id number] : 1945 Acct:[id number] Age/Sex: 80 / F ADM Date: 5 Loc: ER Room: Type: [facility] ER Attending Dr: Copies to: Calvin Parekh [...] Correa M.D. 07/01/2025 2:55 PM Dictation Location: [place] [address] Transcribed By: TRAM 07/01/251454 Dictated By: Marco Correa MD 07/01/251452 Signed By: 07/01/251454 [facility] Work Phone: 1(670) 795-547607-30-2025 NoteBellevue Office [facility]iology Clinic Note Reason for cardiology visit: follow-up on coronary artery disease, hypertension, and hyperlipidemia HPI: 06/10/2025 Patient is here today with her for follow-up visit. She was recently on 05/29/2025 in [facility] ED because of intermittent chest pain [...] on days 1-21 e (more content not included)...[facility]07-24-[facility] Evaluation note* Diagnosis Onset Date Resolution Status Admit Date Acute kidney injury superimposed on CKD acuteJuly 2024 8:31amAnemia of chronic diseaseacuteJuly 2024 8:31am Breast canceracuteJuly 2024 8:31amCKD (chronic kidney disease) stage 3, GFR 30-59 ml/minacuteJuly 2024 8:31amHyperlipidemiaacuteJuly 2024 8:31amHypertensive chronic kidney disease with stage 1 through stage 4 chronic kiacuteJuly 2024 8:31am [facility] Work Phone: 1(436) 805-575607-10-2025 History of Present illness Narrative* María Thapa, DO - 05/21/2025 2:30 PM EDT Images from the original note were not included. [facility] Progress Note Patient - Margy Oakes Age - 80 y.o. - 1945 [facility] # - [id number] ASSESSMENT 1. Chronic cough and dyspnea on [...] peribronchial wall thickening. Dr. María Thapa DO. [facility] Office: [phone] documented in this encounterCleveland Clinic [facility]06-05-2025 Evaluation note* Diagnosis Onset Date Resolution Status Admit Date Acute kidney injury superimposed on CKD acuteApril 16, 2025 2:50pmAnemia of chronic diseaseacuteApril 16, 2025 2:50pm Breast canceracuteJun2024 2:50pmCKD (chronic kidney disease) stage 3, GFR 30-59 ml/minacuteApril 16, 2025 2:50pmHyperlipidemiaacuteApril 16, 2025 2:50pm Hypertensive chronic kidney disease with stage 1 through stage 4 chronic kiacute April 16, 2025 2:50pm [facility] Work Phone: 1(507) 753-894006-05-2025 Evaluation note* Diagnosis Onset Date Resolution Status [...] through stage 4 chronic kiacuteJuly 2024 8:31am [facility] Work Phone: 1(668) 188-172904-11-2025 Miscellaneous Notes* Telephone Encounter - RATNA Frank - 02/20/2025 10:21 AM EDT Home nebulizer and tubing kit orders with supportive documentation faxed to [facility]. documented in this encounterCleveland Clinic [facility] Hospital04-11-2025 Telephone encounter Note* Telephone Encounter - RATNA Frank - 02/20/2025 10:21 AM EDT Home nebulizer and tubing kit orders with supportive documentation faxed to [facility]. [facility]04-11-2025 History of Present illness Narrative* María Thapa DO - 02/20/2025 7:39 AM EDT Notification from pharmacy received that advair diskus not covered and Breo preferred. Rx for Breo sent to pharmacy documented in this encounterPomerene HospitalBridgeline Digital Holland [id number] History of Present illness Narrative* María Thapa DO - 02/19/2025 10:45 AM EDT [facility] Progress Note Patient - Margy Oakes Age - 80 y.o. - 1945 [facility] # - [id number] ASSESSMENT 1. Chronic cough and dyspnea on [...] months. She recently had a trip to [facility] and had to stop frequently to [...] Meds Medications Reviewed. Dr. María Thapa DO. [facility] Office: [phone] documented in this encounterCleveland Clinic [facility]04-10-2025 Instructions* Patient Instructions* María Thapa DO [...] full vial of medicine. documented in this encounterPomerene HospitalBridgeline Digital Holland [id number] Miscellaneous Notes* Telephone Encounter - RATNA Frank - 02/12/2025 9:34 AM EDT [employer] received message from requesting that we add patient over lunch on 02/19/2025, as Dr. Vazquez would like patient to see SE. [employer] called patient and left voicemail asking for patient to return our call at her earliest convenience to get her scheduled. * Telephone Encounter - RATNA Frank - 02/12/2025 9:34 AM EDT [employer] received message from requesting that we add patient over lunch on 02/19/2025, as Dr. Vazquez would like patient to see SE. [employer] called patient and left voicemail asking for patient to return our call at her earliest convenience to get her scheduled. * Telephone Encounter - RATNA Frank - 02/12/2025 9:34 AM EDT Patient called office back and scheduled an appointment with SE on 02/19/2025 at 10:45am in [place]. documented in this encounterCleveland Clinic [facility]04-03-2025 Telephone encounter Note* Telephone Encounter - RATNA Frank - 02/12/2025 9:34 AM EDT [employer] received message from requesting that we add patient over lunch on 02/19/[address]25, [address] Vazquez would like patient to see SE. [employer] called patient and left voicemail asking for patient to return our call at her earliest convenience to get her scheduled. [facility]04-03-2025 Telephone encounter Note* Telephone Encounter - RATNA Frank - 02/12/2025 9:34 AM EDT [employer] received message from requesting that we add patient over lunch on 02/19/2025, as Dr. Vazquez would like patient to see SE. [employer] called patient and left voicemail asking for patient to return our call at her earliest convenience to get her scheduled. [facility] HospitalJama Software [id number] Telephone encounter Note* Telephone Encounter - RATNA Frank - 02/12/2025 9:34 AM EDT Patient called office back and scheduled an appointment with SE on 02/19/2025 at 10:45am in [place]. [facility] HospitalJama Software [id number] History of Present illness Narrative* Brannon Carranza, [...] GRADUAL INCREASE WITH PAIN- PT ISLEAVING FOR [place] ON SUNDAY- REQUESTING CORTISONE INJ PT RECENTLY DX WITH BREAST CA FOR THE 3RD TIME; CURRENTLY ON IBRANCE XRAY EPIC 08/27/24 XRAY [facility] 07/09/23 DEPO INJECTION 04/16/24, 08/27/24 PHYSICAL THERAPY [...] alleviate symptoms before her upcoming trip to [place]. She will contact the clinicon an as- needed basis if her symptoms worsen for reevaluation upon her return. There is no calf tenderness, and she has previously found relief from injections. If there is no improvement, consider bill adjuster bracing. PROCEDURE An injection was administered today to alleviate right knee pain. Questions answered in laymen terms at the bedside. The diagnosis, home exercise plan and any ongoing restrictions/ recommendations reviewed. If unable to be reached in office, I recommend evaluation at nearest Emergency Room if any symptoms worsened or new symptoms develop for requiring urgent evaluation. documented in this encounterResearch Medical Center-Brookside [id number] NoteBellevue Office Cardiology Clinic Note Reason for [...] 47 11/13/2024 Cholesterol 215, (more content not included)...[facility]02-10-2025 Instructions* Pre-Procedure Instructions - Paris Robertson RN - 12/22/2024 8:30 AM EST Your surgery/procedure is scheduled at [facility] on 12/25/2024 at 1315 Arrival Time 1115 [facility] Address: [address] [place] [address]. [place] [address] Park in [address] Parking [address] located on [facility]. Report to the Entrance B. Check in at the information desk the surgery. The waiting room located on the second floor. If you have any questions prior to surgery, please call Pre-Admission Clinic at [phone] between 7:30 am and 4:30 pm Sunday through Sunday. If you have questions the morning of surgery, please call the Pre-op Department at [phone]. Notify your SURGEON if you develop any [...] piercings ,hair extensions that contain metal, nail swedish, make-up, and contact lens. You may brush [...] RIGHTS AND RESPONSIBILITIES As a patient at [facility], you have the right to: Receive medical care and be informed of who is taking care of you Be treated with dignity and respect Have a family member/textiles sales representative of choice and your physician notified of your admission Receive information and actively participate in decisions about your care and treatment Refuse care, treatment and services Decide who may provide your support and speak for you Access islam and spiritual services Participate in ethical issues [...] of hospital charges and payment methods Patient/patient textiles sales representative responsibilities are to: Provide information [...] RIGHTS AND RESPONSIBILITIES As a patient at [facility], you have the right to: Receive medical care and be informed of who is taking care of you Be treated with dignity and respect Have a family member/textiles sales representative of choice and your physician notified of your admission Receive information and actively participate in decisions about your care and treatment Refuse care, treatment and services Decide who may provide your support and speak for you Access islam and spiritual services Participate in ethical issues [...] of hospital charges and payment methods Patient/patient textiles sales representative responsibilities are to: Provide information [...] Control department if you have any questions. [facility]02-10-2025 Miscellaneous Notes* Pre-Procedure Instructions - Paris Robertson RN - 12/22/2024 8:30 AM EST Your surgery/procedure is scheduled at [facility] on 12/25/2024 at 1315 Arrival Time 1115 [facility] Address: [address] [place] [address] in [address]1 Parking lot located on [facility]. Report to the Entrance B. Check in at the information desk the surgery. The waiting room located on the second floor. If you have any questions prior to surgery, please call Pre-Admission Clinic at [phone] between 7:30 am and 4:30 pm Sunday through Sunday. If you have questions the morning of surgery, please call the Pre-op Department at [phone]. Notify your SURGEON if you develop any [...] piercings ,hair extensions that contain metal, nail swedish, make-up, and contact lens. You may brush [...] RIGHTS AND RESPONSIBILITIES As a patient at [facility], you have the right to: Receive medical care and be informed of who is taking care of you Be treated with dignity and respect Have a family member/textiles sales representative of choice and your physician notified of your admission Receive information and actively participate in decisions about your care and treatment Refuse care, treatment and services Decide who may provide your support and speak for you Access islam and spiritual services Participate in ethical issues [...] of hospital charges and payment methods Patient/patient textiles sales representative responsibilities are to: Provide information [...] RIGHTS AND RESPONSIBILITIES As a patient at [facility], you have the right to: Receive medical care and be informed of who is taking care of you Be treated with dignity and respect Have a family member/textiles sales representative of choice and your physician notified of your admission Receive information and actively participate in decisions about your care and treatment Refuse care, treatment and services Decide who may provide your support and speak for you Access islam and spiritual services Participate in ethical issues [...] of hospital charges and payment methods Patient/patient textiles sales representative responsibilities are to: Provide information [...] you have any questions. documented in this encounterCleveland Clinic [facility]02-04-2025 Miscellaneous Notes* Telephone Encounter - Franca [...] at offered time. She is currently at [facility] and requests our office to call her later with the details. * Telephone Encounter - Franca Regalado RN - 12/16/2024 9:44 AM EST Spoke with patient. Instructed to hold aspirin on 12/20/24 for 5 days. Nothing to eat or drink after midnight. Arrive to [facility] by 1115 am for a procedure times of 115 pm. documented in this encounterNorthwestern Medical CenterModern Message02-04-2025 Telephone encounter Note* Telephone Encounter - Franca [...] being held on 12/25/24 at 115 pm. [employer] Work Phone: 1(702) 126-435502-04-2025 Telephone encounter Note* Telephone Encounter - Franca Regalado RN - 12/16/2024 9:44 AM EST Notification from Dr Thapa. The patient would like to have done at offered time. She is currently at [facility] and requests our office to call her later with the details. [employer]02-04-2025 Telephone encounter Note* Telephone Encounter - Franca Regalado RN - 12/16/2024 9:44 AM EST Spoke with patient. Instructed to hold aspirin on 12/20/24 for 5 days. Nothing to eat or drink after midnight. Arrive to [facility] by 1115 am for a procedure times of 115 pm. [employer]01-30-2025 Miscellaneous Notes* Telephone Encounter - Renae Torres RN - 12/11/2024 3:02 PM EST [employer] attempted to contact patient. No answer. Left message for patient to contact office regarding procedure date and time. Left office phone number for reference. Patient will need to be informed of the following: Ion Navigational procedure w/EBUS under general anesthesia (Dx: Lung nodule) is scheduled for Dec at 1:00 pm. Patient to arrive to [facility] at 11:00 am. Patient to report to [...] procedure. Tylenol only. Make arrangements for a concrete pile driver operator to bring you to and from the hospital on the day of the procedure Bring your ID, current medication list and insurance cards to the hospital Call our office if you become ill such as a cold, cough, fever, sore throat or vomiting on the day before or day of the cylinder devalver to update Dr Thapa Case #[id number] * Telephone Encounter - Renae Torres RN - 12/11/2024 3:02 PM EST Patient returned call. [employer] informed patient of the following: Ion Navigational procedure w/EBUS under general anesthesia (Dx: Lung nodule) is scheduled for Dec at 1:00 pm. Patient to arrive to [facility] at 11:00 am. Patient to report to [...] procedure. Tylenol only. Make arrangements for a concrete pile driver operator to bring you to and from the hospital on the day of the procedure Bring your ID, current medication list and insurance cards to the hospital Call our office if you become ill such as a cold, cough, fever, sore throat or vomiting on the day before or day of the procedure Patient agreeable to above information and verbalized understanding [employer]er And Presser to update Dr Thapa Case #[id number] * Telephone Encounter - Renae Torres RN [...] 115 pm with TSA documented in this encounterPomerene HospitalSoMoLend [id number] Telephone encounter Note* Telephone Encounter - Renae Torres RN - 12/11/2024 3:02 PM EST [employer] attempted to contact patient. No answer. Left message for patient to contact office regarding procedure date and time. Left office phone number for reference. Patient will need to be informed of the following: Ion Navigational procedure w/EBUS under general anesthesia (Dx: Lung nodule) is scheduled for Dec at 1:00 pm. Patient to arrive to [facility] at 11:00 am. Patient to report to [...] procedure. Tylenol only. Make arrangements for a concrete pile driver operator to bring you to and from the hospital on the day of the procedure Bring your ID, current medication list and insurance cards to the hospital Call our office if you become ill such as a cold, cough, fever, sore throat or vomiting on the day before or day of the cylinder devalver to update Dr Thapa Case #[id number] [employer]01-30-2025 Telephone encounter Note* Telephone Encounter - Renae Torres RN - 12/11/2024 3:02 PM EST Patient returned call. [employer] informed patient of the following: Ion Navigational procedure w/EBUS under general anesthesia (Dx: Lung nodule) is scheduled for Dec at 1:00 pm. Patient to arrive to [facility] at 11:00 am. Patient to report to [...] procedure. Tylenol only. Make arrangements for a concrete pile driver operator to bring you to and from the hospital on the day of the procedure Bring your ID, current medication list and insurance cards to the hospital Call our office if you become ill such as a cold, cough, fever, sore throat or vomiting on the day before or day of the procedure Patient agreeable to above information and verbalized understanding [employer] And Presser to update Dr Thapa Case #[id number] [employer]01-30-2025 Telephone encounter Note* Telephone Encounter - Renae Torres RN - 12/11/2024 3:02 PM EST Patient completed labs today but does not stop aspirin until 12-30-24. Do you want her to repeat them? [facility] HospitalJ[facility] Software [id number] Telephone encounter Note* Telephone Encounter - María Thapa DO - 12/11/2024 3:02 PM EST No that is fine [facility] HospitalJ[facility] Software [id number] Telephone encounter Note* Telephone Encounter - Franca Regalado RN - 12/11/2024 3:02 PM EST Procedure moved up to 12/25/24 at 115 pm with TSA [facility] HospitalAndigilog Work Phone: 1(799) 409-795401-30-2025 History of Present illness Narrative* María Thapa DO - 12/11/2024 12:00 PM EST Images from the original note were not included. [facility] Consult Patient - Margy Oakes Age - 79 y.o. - 1945 [facility] # - [id number] Referring physician: Dr. 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 She is a never smoker. Her father suffered from bone cancer and prostate cancer. She denies any personal or family history of rheumatologic conditions however she did follow [facility]. She is mostly bothered by this [...] Past Medical History: Diagnosis Date Angina p[place]is [place] Arthralgia of multiple joints Arthritis Bicipital tendinitis Breast cancer [place] 2024 Cancer [place] breast x2 Carpal tunnel syndrome Dizziness vertigo Fibromyalgia, primary GERD (gastroesophageal reflux disease) Headache Heart burn Hyperlipidemia Hypertension Lumbosacral spinal stenosis Meningioma ([facility] 07/2019 STABLE Neuropathy Obesity Osteoarthritis Positive SATYA (antinuclear antibody) Radiculopathy of lumbosacral region Trochanteric bursitis of right hip Varicella Visual impairment glasses Past Surgical History: Procedure Laterality Date ADENOIDECTOMY APPENDECTOMY 1960 BREAST BIOPSY 1996 BREAST LUMPECTOMY Bilateral 1992 Right; 1995 Left BUNIONECTOMY CARDIAC CATHETERIZATION 05/2019 CARDIAC CATHETERIZATION 1997 [facility] CARDIAC CATHETERIZATION 12/10/2024 COLONOSCOPY 06/08/2014 Dr. Robles COLONOSCOPY 11/09/2008 Dr. Robles COLONOSCOPY N/A 07/26/2020 Performed by Maverick Robels MD at [facility] EGD N/A 07/26/2020 Performed by Maverick Robles MD at [facility] FOOT SURGERY 09/2019 HYSTERECTOMY JOINT REPLACEMENT Left KNEE ARTHROSCOPY 2016 LYMPH NODE BIOPSY 1992 &1995 MASTECTOMY Bilateral MOUTH SURGERY REPLACEMENT TOTAL JOINT KNEE Left 01/15/2018 Performed by Jr Pepe Jeffries DO at [facility] TARSAL TUNNEL RELEASE TONSILLECTOMY 194 Lyrica [...] Results: None Radiology Dr. María Thapa DO. [facility] Office: [phone] documented in this encounterNorthwestern Medical CenterModern Message01-28-2025 NotePatient needs cardiac clearance before she undergoes [...] be at low risk for perioperative cardiac events.[facility] 12-09-2024 NotePatient: Margy Oakes Procedure Information Date/Time: 12/09/24 1030 Procedure: Coronary angiography Location: [facility] NEW VEHICLE SALES CONSULTANT [address] / [facility] (Cath) Providers: Kimmy Rosado MD Clinical information reviewed: Allergies Meds Physical Exam Airway Mallampati: III Cardiovascular Dental Pulmonary Abdominal Anesthesia Plan ASA 3 other (Conscious sedation) intravenous induction Anesthetic plan and risks discussed with patient. Use of blood products discussed with patient who consented to blood products. Plan discussed with attending and fellow. Additional Equipment RequestsMercy Health Perrysburg Hospital12-30-2024 Note [place] [facility] Note Reason for cardiology [...] has a past medical history of Cancer ([facility]), Coronary artery disease, Hyperlipidemia, and Hypertension. Surgical [...] EKG today 11/10/2024 s (more content not included)...[facility]12-13-2024 NoteXR CHEST 2 VWS History: Shortness of [...] by Norberto Corrigan MD on 10/24/2024 4:16 [facility] 08-27-2024 History of Present illness Narrative* [...] YRS (2021), CONTINUES GETTING WORSE. WENT TO [facility] ER 07/19 AFTER A FALL - HASHAD PAIN SINCE LAST DEPO INJ 04/16 XRAY TODAY EPIC 08/27/24 XRAY [facility] 07/09/23 DEPO INJECTION 04/16/24 PHYSICAL THERAPY [...] knee osteoarthritis with valgus alignment. Lavinia Rios LOAN REVIEWER-LEGAL RECOVERY SPECIALIST L Inj/Asp: R knee on 08/27/2024 12:21 [...] develop for requiring urgent evaluation. Lavinia Rios, HALEIGH-LEGAL RECOVERY SPECIALIST documented in this encounterResearch Medical Center-Brookside [id number] History of Present illness Narrative* Ignacio Augustine MD - 01/11/2024 9:40 AM EST Images from the original note were not included. [facility] [address] [place] [address], [address] [place] [address] * FOLLOW-UP NOTE ? 01/11/2024 Patient: Margy Oakes 1945 [id number] Physician: Ignacio Augustine MD, FACS CHIEF COMPLAINT [...] record of the patient encounter. Inadvertent computerized nursery nurse errors related to syntax, spelling, homophones, and/or inaudibility may be present. documented in this [facility]03-01-2024 Instructions* Patient Instructions* Katelyn Stevens CMA - 01/11/2024 9:40 AM EST Patient was seen today by Dr. Augustine documented in this [facility]12-29-2023 Miscellaneous Notes* Telephone Encounter - Estrella Brown [...] order will be placed. documented in this [facility]12-29-2023 Telephone encounter Note* Telephone Encounter - Estrella [...] informed that a order will be placed. [facility]22 NotePROCEDURE: XR FOOT RT MIN 3 VIEWS [...] Electronically authenticated by: NORBERTO IVAN Date: 2022-05-31 21:57[facility]06-21-2022 NoteCONSULTATION PROCEDURE DATE: 05/02/2022 PREOPERATIVE DIAGNOSIS: [...] will be followed up in the office. [facility] Signed and Approved by: DR BERNABE PRATHER . 05/09/2022 09:22:00[facility]06-21-2022 NoteCONSULTATION CONSULTATION DATE: 05/02/2022 CHIEF COMPLAINT: [...] we need to follow through with the dynamics ax developer's recommendation. Subsequent to the visit today, the patient will be followed up for return visit in 2-3 months. The patient understands and would like to proceed. CC: Lucia Esteban M.D. [facility] Signed and Approved by: DR BERNABE PRATHER . 05/09/2022 09:22:00[facility]06-07-2022 NoteCONSULTATION PROCEDURE DATE: 04/18/2022 PREOPERATIVE DIAGNOSIS: [...] No intervention was performed on her left. [facility] Signed and Approved by: DR BERNABE PRATHER . 04/25/2022 08:30:00[facility]06-07-2022 NoteCONSULTATION CONSULTATION DATE: 04/18/2022 CHIEF COMPLAINT: [...] like to proceed. CC: Lucia Esteban M.D. [facility] Signed and Approved by: DR BERNABE PRATHER . 04/25/2022 08:30:00[facility]05-24-2022 NotePROCEDURE: XR FOOT RT MIN 3 [...] Electronically authenticated by: NORBERTO IVAN Date: 2022-04-04 09:40[facility]05-24-2022 NotePROCEDURE: XR FOOT RT MIN 3 [...] Electronically authenticated by: NORBERTO IVAN Date: 2022-04-04 09:40[facility]05-17-2022 NoteCONSULTATION PROCEDURE DATE: 03/28/2022 PREOPERATIVE DIAGNOSIS: [...] her legs were notable to the patient. [facility] Signed and Approved by: DR BERNABE PRATHER . 04/04/2022 12:22:00[facility]05-17-2022 NoteCONSULTATION CONSULTATION DATE: 03/28/2022 CHIEF COMPLAINT: [...] like to proceed. CC: Lucia Esteban M.D. [facility] Signed and Approved by: DR BERNABE PRATHER . 04/04/2022 12:22:00[facility]04-19-2022 NoteCONSULTATION Consultation Date:02/28/2022 PAIN MANAGEMENT CONSULTATION [...] in one month. CC: Lucia Esteban M.D. [facility] Signed and Approved by: DR BERNABE PRATHER . 03/07/2022 12:16:00[facility]04-05-2022 NoteCONSULTATION PAIN MANAGEMENT CONSULTATION CHIEF COMPLAINT: Bilateral leg pain. HISTORY OF PRESENT ILLNESS: This is a very pleasant, 77-year-old female, who was referred to us by physician print shop assistant, Loly Fox. The patient's family physician [...] Approved by: DR BERNABE PRATHER . 02/21/2022 11:53:00[facility]04-05-2022 NoteCONSULTATION PROCEDURE NOTE PREOPERATIVE DIAGNOSIS: Spasming [...] Approved by: DR BERNABE PRATHER . 02/21/2022 11:53:00[facility]* Diagnosis Primary osteoarthritis of right knee- Primary Right knee pain, unspecified chronicity documented in this encounter [facility]* Diagnosis Pulmonary nodules/lesions, multiple- Primary Other diseases of lung, not elsewhere classified Pulmonary nodule Other diseases of lung, not elsewhere classified [facility] Diagnosis Preop testing- Primary Unspecified pre-operative examination Pulmonary nodule Other diseases of lung, not elsewhere classified SOB (shortness of breath) Shortness of breath [facility]* Diagnosis Neuropathy- Primary Mononeuritis of unspecified site [facility]* Diagnosis Neuropathy- Primary Mononeuritis of unspecified site [facility] Diagnosis Acute pain of right knee- Primary Arthritis of right knee documented [facility]* Diagnosis Moderate persistent asthma without complication- Primary [facility]* Diagnosis Pulmonary nodules/lesions, multiple- Primary Other diseases of lung, not elsewhere classified Dyspnea on exertion Other dyspnea and respiratory abnormality Moderate persistent asthma without complication [facility]* Diagnosis Onset Date Resolution Status Admit Date Acute kidney injury superimposed on CKD acuteJune 2024 2:50pmCKD (chronic kidney disease) stage 3, GFR 30-59 ml/min acuteJune 2024 2:50pmHyperlipidemiaacuteJune 2024 2:50pmHypertensive chronic kidney disease with stage 1 through stage 4 chronic kiacuteJune 2024 2:50pm [facility] Work Phone: Evaluation noteNo assessment information available [facility] Work Phone: evaluation note* Diagnosis Pulmonary nodules/lesions, multiple- Primary Other diseases of lung, not elsewhere classified Moderate persistent asthma without complication [facility]* Diagnosis Left hip pain- Primary Pain in joint, pelvic region and thigh Trochanteric bursitis of left hip documented in this encounter [facility]* Diagnosis Left hip pain- Primary Pain in joint, pelvic region and thigh Arthritis of right knee Chronic pain of right knee Trochanteric bursitis of left hip documented in this encounter [facility] Discharge instructions Additional Instructions CT scan of the head is negative for acute injury.[facility] Work Phone: Hospital Discharge instructions Additional Instructions [...] NOT operate machinery such as power tools, [employer] mowers, [employer] blowers, sewing machines, etc. for 24 hours. [...] problems. -Follow up with PCP. -Office number [phone]. [facility] Work Phone: InstructionsNot on filedocumented in [...] for referral (narrative)No reason for referral information availableK[facility] Work Phone: Summary Purpose Family History Relationship [...] lumbar spine without contrast Ignacio Augustine MD [address] [place] [address] [address] [place] [address] Referral IDStatusReasonStart DateExpiration DateVisits RequestedVisits [id number] Chief Complaint and Reason for Visit Chief [...] and content) DATE CREATED AUTHOR 07/11/2019 [facility] DATE CREATED AUTHOR AUTHOR'S ORGANIZ ATION 06/15/2022 [facility] DATE CREATED AUTHOR AUTHOR'S ORGANIZ ATION 12/14/2024 [facility] DATE CREATED AUTHOR AUTHOR'S ORGANIZ ATION 03/31/2025 [facility] DATE CREATED AUTHOR AUTHOR'S ORGANIZ ATION 05/26/2025 [facility] DATE CREATED AUTHOR AUTHOR'S ORGANIZ ATION 06/12/2025 [facility] DATE CREATED AUTHOR AUTHOR'S ORGANIZ ATION 07/26/2025 [facility] DATE CREATED AUTHOR AUTHOR'S ORGANIZ ATION 09/21/2025 [facility] DATE CREATED AUTHOR AUTHOR'S ORGANIZ ATION 09/24/2025 [facility] EPIC Source Comments (unrecognize d section and content) In the event this informatio n is protected by the Federal Confidentiality of Alcohol and Drug Abuse Patient Records regulations: The Federal rules restrict any use of the information to criminally investigate or prosecute any alcohol or drug abuse patient.[facility] Care Teams (unrecognized sec tion and content) Team MemberRelationshipSpecialtyStart DateEnd Date Lucia Esteban MD [address] [address] PCP - External PCPFamily Medicine04/21/23 Lucia Esteban MD [address] [address] PCP - GeneralFamily Medicine04/16/24Team MemberRelationshipSpecialtyStart DateEnd Lucia Esteban MD [address] [address] PCP - External PCPFamily Medicine04/21/23 Lucia Esteban MD [address] [address] PCP - GeneralFamily Medicine04/16/24Team MemberRelationshipSpecialtyStart DateEnd Date Lucia Esteban MD [address] [address] PCP - General05/04/15Team MemberRelationshipSpecialtyStart DateEnd Date Lucia Esteban MD [address] PCP - General05/04/15Team MemberRelationshipSpecialtyStart DateEnd Date Lucia Esteban MD [address] [address] PCP - General05/04/15Team MemberRelationshipSpecialtyStart DateEnd Date Lucia Esteban MD [address] [address] PCP - General05/04/15Team MemberRelationshipSpecialtyStart DateEnd [facility] Lucia Esteban MD [address] [phone] (Work) PCP - General05/04/15Team MemberRelationshipSpecialtyStart DateEnd [facility] Lucia Esteban MD [address] [address] PCP - General05/04/15Team MemberRelationshipSpecialtyStart DateEnd [facility] Lucia Esteban MD [address] [address] PCP - General05/04/15Team MemberRelationshipSpecialtyStart DateEnd [facility] Lucia Esteban MD [address] [address] PCP - External PCPFamily Medicine04/21/23 Lucia Esteban MD [address] [place] [address] PCP - GeneralFamily Medicine04/16/24Team MemberRelationshipSpecialtyStart DateEnd Date Lucia Esteban MD [address] [place] [address] PCP - External PCPFamily Medicine04/21/23 Lucia Esteban MD [address] [place] [address] PCP - Generalmily Medicine04/16/24Team MemberRelationshipSpecialtyStart DateEnd Date Lucia Esteban MD [address] [address] PCP - General05/04/15Team MemberRelationshipSpecialtyStart DateEnd Date Lucia Esteban MD [address] [address] PCP - General05/04/15Team MemberRelationshipSpecialtyStart DateEnd Date Lucia Esteban MD [address] [place] [address] PCP - General05/04/15Team MemberRelationshipSpecialtyStart DateEnd Date Lucia Esteban MD [address] [place] [address] PCP - General05/04/15Team MemberRelationshipSpecialtyStart DateEnd Date Lucia Esteban MD [address] [place] [phone] PCP - External PCPFami Medicine04/21/23 Lucia Esteban MD [address] [phone] PCP - [facility]04/16/24Team MemberRelationshipSpecialtyStart DateEnd Date Lucia Esteban MD [address] [phone] PCP - External [facility]04/21/23 Lucia Esteban MD [address] [phone] PCP - [facility]04/16/24 Team Status: Active Member Role [...] April 16, 2025 End: April 16, 2025[facility] Care ProviderActiveStart: April 16, 2025 End: April 16, 2025 Team Status: Inactive Member Role Status Dates Shyam Crowell MD Attending Provider Active Start : April 16, 2025 End: April 16, 2025Team MemberRelationshipSpecialtyStart DateEnd Date Lucia Esteban MD [address] [phone] PCP - General05/04/15Team MemberRelationshipSpecialtyStart DateEnd Date Lucia Esteban MD [address] [place] [address] PCP - General05/04/15 Team Status: Active Member [...] July 01, 2025 End: July 01, 2025[facility] Care ProviderActiveStart: July 01, 2025 End: [...] DateEnd Date Lucia Esteban MD [address] [place] [address] PCP - External PCPFamily Medicine04/21/23 Lucia Esteban MD [address] [place] [address] PCP - GeneralFamily Medicine04/16/24Team MemberRelationshipSpecialtyStart DateEnd Date Lucia Esteban MD [address] [place] [phone] PCP - External PCPFamily Medicine04/21/23 Lucia Esteban MD [address] [place] [phone] PCP - GeneralFamily Medicine04/16/24Team MemberRelationshipSpecialtyStart DateEnd Date Lucia Esteban MD [address] [place] [address] PCP - External PCPFamily Medicine04/21/23 Lucia Esteban MD [address] [place] [address] PCP - GeneralFamily Medicine04/16/24 Reason for Visit (unrecogniz ed section and content) ReasonCommentsPainReasonCommentsNew PatientCT: 11/14/2024PET CT: 12/02/2024Lung NoduleSpecialtyDiagnoses / ProceduresReferred By ContactReferred To Contact Pulmonary Medicine Diagnoses Pulmonary nodule Natasha Vazquez MD [address] [place] [address] [address] [place] [address] Phone: tel: fax: [facility] [address] [address] Phone: tel: fax: Referral IDStatusReasonStart DateExpiration DateVisits RequestedVisits [id number] Review Specialty Services Required [id number] RefillReasonOnset DateCommentsMRI 11/09/2023ReasonCommentsFollow-upEp review mriReasonCommentsFollow-upPulmonary nodules/lesions, multipleCXR: [...] BE BASED ON THE PRIMARY CLINICAL RECORDS. [facility]. provides no warranty or guarantee of the accuracy or completeness of information in this document.
== END 2025-10-21 09:36 | disposition home or self-care (01) ==
LOC: CT 09:35
PROVIDERS: PCP Family Medicine; Visit Provider Internal Medicine Hematology & Oncology
DX: R91.1 Solitary pulmonary nodule (principal); Z85.3 Personal history of malignant neoplasm of breast; C50.912 Malignant neoplasm of unspecified site of left female breast; C50.911 Malignant neoplasm of unspecified site of right female breast; C78.01 Secondary malignant neoplasm of right lung; D63.1 Anemia in chronic kidney disease; D64.81 Anemia due to antineoplastic chemotherapy; C50.919 Malignant neoplasm of unspecified site of unspecified female breast; D63.8 Anemia in other chronic diseases classified elsewhere; E78.5 Hyperlipidemia, unspecified; I12.9 Hypertensive chronic kidney disease with stage 1 through stage 4 chronic kidney disease, or unspecified chronic kidney disease; N18.30 Chronic kidney disease, stage 3 unspecified; N17.9 Acute kidney failure, unspecified
CPT/HCPCS: 36415; 71250; 80069; 81001; 84550; 85027

== ENCOUNTER 2025-11-03 11:42 | Outpatient (RCR) | payer MEDICARE, SELFPAY ==
[2025-10-22 12:05] VITALS: BP 134/74; PULSE 52; TEMP 36.4; O2SAT 93
[2025-10-22] MEDS: 0.9 % SODIUM CHLORIDE 1,000 ML 666.667 ML IV (12:20)
[2025-10-22 14:18] LABS: Glucose Urine UA NEGATIVE (NEGATIVE)
[2025-11-03 12:13] LABS: Hematocrit 33.9 % (36.0-48.0); Hemoglobin 10.7 g/dL (12.0-16.0); Immature Granulocytes Abs Auto 0.04 10^3/uL (0.00-0.03); Immature Granulocytes Pct Auto 0.5 % (0.0-0.5); Lymphocytes Absolute Auto 2.0 10^3/uL (1.2-3.8); Mean Corpuscular HGB Conc 31.6 g/dL (29.9-35.2); Mean Corpuscular Hemoglobin 31.5 pg (26.7-34.0); Mean Corpuscular Volume 99.7 fL (81.0-99.0); Platelet Count 263 10^3/uL (150-450); Red Blood Count 3.40 10^6/uL (4.20-5.40); White Blood Count 7.5 10^3/uL (4.0-11.0)
[2025-11-03 12:14] LABS: Iron 91.0 ug/dL (50.0-170.0); Percent Iron Saturation 30.0 %; Total Iron Binding Capacity 303.0 ug/dL (250.0-450.0)
[2025-11-03 12:58] LABS: Ferritin 170.0 ng/mL (8.0-252.0)
== END 2025-11-11 23:59 | disposition home or self-care (01) ==
LOC: HEMC 11:42
PROVIDERS: PCP Family Medicine; Visit Provider Internal Medicine Hematology & Oncology
DX: R91.1 Solitary pulmonary nodule (principal); D64.81 Anemia due to antineoplastic chemotherapy; C50.912 Malignant neoplasm of unspecified site of left female breast; C50.911 Malignant neoplasm of unspecified site of right female breast; C78.01 Secondary malignant neoplasm of right lung; R82.998 Other abnormal findings in urine
CPT/HCPCS: 36415; 81003; 82728; 83540; 83550; 85025; 87086